=== PATIENT | male | born 1935 | race Caucasian/White ===

== ENCOUNTER 2017-11-26 11:16 | Emergency (ER) | payer MEDICARE, OTHER ==
[2017-11-26 12:21] LABS: ABS Basophils 0.1 10^3/ul (0-0.2); ABS Eosinophils 0.1 10^3/ul (0-0.6); ABS Lymphocytes 1.3 10^3/ul (1.0-4.8); ABS Monocytes 0.7 10^3/ul (0-0.8); ABS Neutrophils 5.8 10^3/ul (1.5-7.7); ABS Nucleated RBC 0 10^3/ul; Eosinophil % 1.1 % (0-6); Hematocrit 41 % (42-52); Hemoglobin 13.7 g/dl (14.0-18.0); Lymphocyte % 16.5 % (25-47); Mean Corpuscular HGB Conc 34 g/dl (31-36); Mean Corpuscular Hemoglobin 30 pg (27-31); Mean Corpuscular Volume 88 fL (80-94); Mean Platelet Volume 8 um3 (7.4-10.4); Nucleated Red Blood Cells % 0; Platelet Count 155 10^3/ul (150-450); Red Blood Count 4.64 10^6/ul (4.0-5.4); Red Cell Distribution Width 16 % (10.5-15); White Blood Count 7.9 10^3/ul (3.5-10.8)
[2017-11-26 12:31] LABS: INR 3.12 (0.77-1.02)
[2017-11-26 12:35] LABS: EGFR Non-African American 70.7 (>60)
--- NOTE | 2017-11-26 12:46 | RAD ---
Indication: Left leg edema. Duplex Doppler sonography of the deep venous system of the left lower extremity deep venous system was performed. Bilaterally the common femoral veins appear patent and compressible. Left proximal greater saphenous vein, proximal deep femoral vein, femoral vein, popliteal vein, posterior tibial veins and peroneal veins appear patent and compressible. IMPRESSION: NO EVIDENCE OF DEEP VENOUS THROMBOSIS IS IDENTIFIED.
[2017-11-26] MEDS ORDERED: cefTRIAXone(*) 1 GM in NS 0.9% 50 ML* 50 ML IVPB ONE (13:20)
[2017-11-26 14:19] VITALS: BP 165/68
--- NOTE | 2017-11-26 23:38 | ED ---
Wilberto Richardson Abhishek, scribed for Liz Jha MD on 11/26/17 at 1154 . Lower Extremity - HPI Summary HPI Summary: This patient is a 82 year old M presenting to [facility] accompanied by daughter and son-in-law with a chief complaint of tightness and swelling in the left foot since 11/25/16 at night time. Pt states the tightness radiates to below the knee. Pt believes he has cellulitis in the left leg. The patient rates the pain 3/10 in severity. Symptoms aggravated by nothing. Symptoms alleviated by nothing. Patient reports pedal edema bilaterally and SOB (chronic). Patient denies foot pain, fever, and right leg pain. His symptoms are in the same side of the leg that the cellulitis was previously present before. Pt has hx paroxysmal afib and is on warfarin, which he states has been therapeutic on recent measurements. He has no prior hx of DVT. He denies CP.. - History of Current Complaint Chief Complaint: EDExtremityLower Stated Complaint: POSSIBLE CELLULITIS IN LT FOOT Time Seen by Provider: 11/26/17 11:36 Hx Obtained From: Patient Mechanism Of Injury: Other - no known injury Onset of Pain: Days - 2 Onset/Duration: Days - since 11/25/17 at night time Severity Initially: Mild Severity Currently: Mild Pain Intensity: 3 Pain Scale Used: 0-10 Numeric Timing: Constant Location: Is Discrete @ - left foot and radiates up to just below the knee Character Of Pain: Stiffness - tightness Associated Signs And Symptoms: Positive: Swelling - bilateral pedal, Other - Tightness in the left foot radiating to below the knee Aggravating Factor(s): Nothing Alleviating Factor(s): Nothing Able to Bear Weight: Yes - Allergies/Home Medications Allergies/Adverse Reactions: Allergies Allergy/AdvReac Type Severity Reaction Status Date / Time Penicillins Allergy Intermediate Swelling Verified 11/26/17 11:46 Home Medications: Home Medications Cholecalciferol [Vitamin D] 5,000 i.u. PO DAILY 11/26/17 [History Confirmed ] Fluticasone Furoate-Vilanterol [Breo Ellipta 200-25 Mcg/INH] 1 puff INH DAILY [History Confirmed 11/26/17] Ipratropium 0.5MG/2.5ML NEB* 1 unit INH BID 11/26/17 [History Confirmed 11/26/17 ] Warfarin TAB(*) [Coumadin TAB(*)] 1 - 4 mg PO DAILY 11/26/17 [History Confirmed 11/26/17] PMH/Surg Hx/FS Hx/Imm Hx Previously Healthy: No - hx cellulitis Endocrine/Hematology History: Denies: Hx Diabetes, Hx Thyroid Disease Cardiovascular History: Reports: Hx Hypertension Respiratory History: Reports: Hx Asthma Denies: Hx Chronic Obstructive Pulmonary Disease (COPD) GI History: Denies: Hx Ulcer - Cancer History Cancer Type, 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 - Surgical History Surgery Procedure, Year, and Place: Appendectomy, nose surgery, shoulder torn rotator cuff repair Infectious Disease History: No Infectious Disease History: Denies: Hx Hepatitis, Hx Human Immunodeficiency Virus (HIV), Traveled Outside the [place] in Last 30 Days - Family History Known Family History: Positive: Hypertension, Other - Cancer - Social History Lives: With Family Alcohol Use: Occasionally Substance Use Type: Reports: None Smoking Status (MU): Former Smoker Review of Systems Negative: Fever Eyes: Negative ENT: Negative Cardiovascular: Negative Positive: Shortness Of Breath - Chronic Gastrointestinal: Negative Genitourinary: Negative Musculoskeletal: Other - Negative foot pain and right leg pain Positive: Edema - pedal bilaterally, Other - tightness in the left foot that radiates below the knee. Positive: Other - usual brawny skin changes on bilat lower legs Neurological: Negative Psychological: Normal All Other Systems Reviewed And Are Negative: Yes Physical Exam - Summary Physical Exam Summary: Appearance: Ill-appearing, moderate pain distress, Well-nourished Skin: [place] at the 5th MTP joint on the plantar surface brawny changes bilaterally, no redness or warmth, no lymphangitic streak. No open area noted on left foot, except [place] at the 5th MTP Head: Normal Head/Face inspection Eyes: Conjunctiva clear ENT: Normal inspection Neck: Supple, no nodes, no JVD. Respiratory: Lungs clear, Normal breath sounds, no respiratory distress Cardio: RRR, No murmur, pulses normal, brisk capillary refill Abdomen: soft, nontender Bowel sounds: present Musculoskeletal: Strength Intact/ ROM intact. No calf tenderness. Bilat 1+ pedal edema. Neuro: Alert, muscle tone normal, facial symmetry, speech normal, sensory/motor intact Psychological: Normal Triage Information Reviewed: Yes Vital Signs On Initial Exam: Initial Vitals Temp Pulse Resp BP Pulse Ox 97.3 F 57 18 164/72 96 11/26/17 11:18 11/26/17 11:18 11/26/17 11:18 11/26/17 11:18 11/26/17 11:18 Vital Signs Reviewed: Yes Diagnostics - Vital Signs Vital Signs Temp Pulse Resp BP Pulse Ox 11/26/17 11:38 54 96 11/26/17 11:37 164/84 11/26/17 11:18 97.3 F 57 18 164/72 96 - Laboratory Lab Results: Lab Results 11/26/17 11/26/17 11/26/17 Range/Units 12:11 12:11 12:11 WBC 7.9 (3.5-10.8) 10^3/ul RBC 4.64 (4.0-5.4) 10^6/ul Hgb 13.7 L (14.0-18.0) g/dl Hct 41 L (42-52) % MCV 88 (80-94) fL MCH 30 (27-31) pg MCHC 34 (31-36) g/dl RDW 16 H (10.5-15) % Plt Count 155 (150-450) 10^3/ul MPV 8 (7.4-10.4) um3 Neut % (Auto) 73.0 (38-83) % Lymph % (Auto) 16.5 L (25-47) % Wood[place] % (Auto) 8.5 (1-9) % Eos % (Auto) 1.1 (0-6) % Baso % (Auto) 0.9 (0-2) % Absolute Neuts (auto) 5.8 (1.5-7.7) 10^3/ul Absolute Lymphs (auto) 1.3 (1.0-4.8) 10^3/ul Absolute Monos (auto) 0.7 (0-0.8) 10^3/ul Absolute Eos (auto) 0.1 (0-0.6) 10^3/ul Absolute Basos (auto) 0.1 (0-0.2) 10^3/ul Absolute Nucleated RBC 0 10^3/ul Nucleated RBC % 0 ESR 13 (0-40) mm/Hr INR (Anticoag Therapy) 3.12 H (0.77-1.02) APTT 45.9 H (26.0-36.3) seconds Sodium 132 L (133-145) mmol/L Potassium 4.4 (3.5-5.0) mmol/L Chloride 99 L (101-111) mmol/L Carbon Dioxide 26 (22-32) mmol/L Anion Gap 7 (2-11) mmol/L BUN 25 H (6-24) mg/dL Creatinine 1.01 (0.67-1.17) mg/dL Est GFR ( Amer) 91.0 (>60) Est GFR (Non-Af Amer) 70.7 (>60) BUN/Creatinine Ratio 24.8 H (8-20) Glucose 188 H (70-100) mg/dL Lactic Acid (0.5-2.0) mmol/L Calcium 9.3 (8.6-10.3) mg/dL Total Bilirubin 1.70 H (0.2-1.0) mg/dL AST 31 (13-39) U/L ALT 28 (7-52) U/L Alkaline Phosphatase 87 (34-104) U/L C-Reactive Protein 3.69 (< 5.00) mg/L Total Protein 6.7 (6.4-8.9) g/dL Albumin 4.0 (3.2-5.2) g/dL Globulin 2.7 (2-4) g/dL Albumin/Globulin Ratio 1.5 (1-3) 11/26/ Range/Units 12:11 WBC (3.5-10.8) 10^3/ul RBC (4.0-5.4) 10^6/ul Hgb (14.0-18.0) g/dl Hct (42-52) % MCV (80-94) fL MCH (27-31) pg MCHC (31-36) g/dl RDW (10.5-15) % Plt Count (150-450) 10^3/ul MPV (7.4-10.4) um3 Neut % (Auto) (38-83) % Lymph % (Auto) (25-47) % [place]son % (Auto) (1-9) % Eos % (Auto) (0-6) % Baso % (Auto) (0-2) % Absolute Neuts (auto) (1.5-7.7) 10^3/ul Absolute Lymphs (auto) (1.0-4.8) 10^3/ul Absolute Monos (auto) (0-0.8) 10^3/ul Absolute Eos (auto) (0-0.6) 10^3/ul Absolute Basos (auto) (0-0.2) 10^3/ul Absolute Nucleated RBC 10^3/ul Nucleated RBC % ESR (0-40) mm/Hr INR (Anticoag Therapy) (0.77-1.02) APTT (26.0-36.3) seconds Sodium (133-145) mmol/L Potassium (3.5-5.0) mmol/L Chloride (101-111) mmol/L Carbon Dioxide (22-32) mmol/L Anion Gap (2-11) mmol/L BUN (6-24) mg/dL Creatinine (0.67-1.17) mg/dL Est GFR ( Amer) (>60) Est GFR (Non-Af Amer) (>60) BUN/Creatinine Ratio (8-20) Glucose (70-100) mg/dL Lactic Acid 1.5 (0.5-2.0) mmol/L Calcium (8.6-10.3) mg/dL Total Bilirubin (0.2-1.0) mg/dL AST (13-39) U/L ALT (7-52) U/L Alkaline Phosphatase (34-104) U/L C-Reactive Protein (< 5.00) mg/L Total Protein (6.4-8.9) g/dL Albumin (3.2-5.2) g/dL Globulin (2-4) g/dL Albumin/Globulin Ratio (1-3) Result Diagrams: 11/26/17 12:11 11/26/17 12:11 Lab Statement: Any lab studies that have been ordered have been reviewed, and results considered in the medical decision making process. - Ultrasound No standard instances Ultrasound Interpretation Completed By: Radiologist - US venous doppler study reveals NO EVIDENCE OF DEEP VENOUS THROMBOSIS IS IDENTIFIED. ED physician has reviewed this radiology report and agrees Re-Evaluation - Re-Evaluation First Eval Re-Evaluation Time: 13:10 Change: Unchanged - discussed lab and US results. Pt understands and agrees to treat as cellulitis. Will give first dose IV, then Rx with oral antibiotics. Lower Extremity Course/Dx - Course Course Of Treatment: The pt presented to the [facility] with a chief complaint of left sided leg tightness ranging from below the knees down to the left foot. Pt described prior PMHx of cellulitis on the left leg in fall of 2015. The pt had a venous doppler study taken and radiology report states NO EVIDENCE OF DEEP VENOUS THROMBOSIS IS IDENTIFIED. The pt will be dx with cellulitis and will be discharged home. Pt was given first dose of antibiotics IV, ceftriaxone 1 gm IV , and then will take cephalexin 500mg po qid x 10 days. - Diagnoses Differential Diagnosis/HQI/PQRI: Positive: Cellulitis, DVT, Gout, Infection Provider Diagnoses: Cellulitis Discharge - Discharge Plan Condition: Stable Disposition: HOME Prescriptions: Cephalexin CAP* [Keflex 500 CAP*] 500 mg PO QID #40 cap Patient Education Materials: Cellulitis (ED) Referrals: Abel Galicia DO [Primary Care Provider] - 3 Days Additional Instructions: Return to the ER if you have any new or worsening symptoms. The documentation as recorded by the Wilberto dobbins Abhishek accurately reflects the service I personally performed and the decisions made by , Liz Jha MD.
== END 2017-11-26 14:19 | disposition home or self-care (01) ==
LOC: ED 11:16
DX: L03.116 Cellulitis of left lower limb (principal); R60.9 Edema, unspecified; Z87.891 Personal history of nicotine dependence; Z86.79 Personal history of other diseases of the circulatory system; Z87.09 Personal history of other diseases of the respiratory system; Z85.6 Personal history of leukemia
CPT/HCPCS: 36415; 80053; 83605; 85025; 85610; 85652; 85730; 86140; 99284; J0696

== ENCOUNTER 2018-01-06 10:13 | Inpatient (IN) | payer MEDICARE, OTHER ==
[2018-01-06 11:00] LABS: ABS Basophils 0 10^3/ul (0-0.2); ABS Eosinophils 0 10^3/ul (0-0.6); ABS Lymphocytes 0.6 10^3/ul (1.0-4.8); ABS Monocytes 0.9 10^3/ul (0-0.8); ABS Neutrophils 4.2 10^3/ul (1.5-7.7); ABS Nucleated RBC 0 10^3/ul; Eosinophil % 0.7 % (0-6); Hematocrit 38 % (42-52); Lymphocyte % 10.6 % (25-47); Mean Corpuscular HGB Conc 34 g/dl (31-36); Mean Corpuscular Hemoglobin 30 pg (27-31); Mean Corpuscular Volume 87 fL (80-94); Mean Platelet Volume 8 um3 (7.4-10.4); Nucleated Red Blood Cells % 0; Platelet Count 130 10^3/ul (150-450); Red Blood Count 4.37 10^6/ul (4.0-5.4); Red Cell Distribution Width 16 % (10.5-15); White Blood Count 5.9 10^3/ul (3.5-10.8)
[2018-01-06 11:09] LABS: INR 2.54 (0.77-1.02)
[2018-01-06] MEDS ORDERED: Oseltamivir CAP* 75 MG CAP PO ONE (11:26)
[2018-01-06] MEDS ORDERED: NS 0.9% 1000 ML* 1,000 ML IV ONE (11:26)
[2018-01-06] MEDS ORDERED: Acetaminophen TAB* 325 MG PO ONE (11:26)
[2018-01-06] MEDS ORDERED: Levofloxacin 750 MG IVPREMIX(* 750 MG/150 ML BAG IVPB ONE (11:27)
[2018-01-06 11:28] LABS: EGFR Non-African American 74.1 (>60)
--- NOTE | 2018-01-06 11:29 | RAD ---
INDICATION: Shortness of breath. COMPARISON: Comparison is made with a prior study from October 17, 2016. TECHNIQUE: AP and lateral views of the chest were obtained. FINDINGS: The heart is mildly enlarged and unchanged from the prior study. The lungs are hyperinflated and clear. IMPRESSION: FINDINGS SUGGESTIVE OF COPD, NO EVIDENCE FOR ACUTE FINDING.
[2018-01-06] MEDS ORDERED: Albuterol/Ipratropium NEB.SOL* Albuterol 2.5 MG/Ipratropium 0.5 MG 3 ML INH ONE (11:47)
[2018-01-06] MEDS ORDERED: Albuterol 2.5 MG/3 ML NEB.SOL* (0.083%) INH ONE (11:48)
[2018-01-06] MEDS ORDERED: methylPREDNISolone 125 MG* 2 ML VIAL IV ONE (12:46)
--- NOTE | 2018-01-06 13:30 | ED ---
Tony Richardson Gabriel, scribed for Claude Gutierrez MD on 01/06/18 at 1114 . Shortness of Breath - HPI Summary HPI Summary: This patient is a 82 year old M BIBA to [facility] accompanied by his family with a chief complaint of SOB since 01-03-18. The patient rates the pain 0/10 in severity. Symptoms aggravated by exertion. Patient reports productive cough. Patient denies fever and n/v/d. Pt is not on O2 at home but is on warfarin. - History of Current Complaint Chief Complaint: EDShortnessOfBreath Time Seen by Provider: 01/06/18 11:10 Hx Obtained From: Patient Onset/Duration: Lasting Days Timing: Constant Current Severity: Moderate Aggrevating Factors: Movement Associated Signs & Symptoms: Negative - fever NVD, Cough (Productive) - Allergy/Home Medications Allergies/Adverse Reactions: Allergies Allergy/AdvReac Type Severity Reaction Status Date / Time Penicillins Allergy Swelling Verified 01/06/18 10:25 Home Medications: Home Medications Albuterol 2.5MG/3ML (0.083%)* [Ventolin 2.5 MG/3 ML NEB.TIM*] 2.5 mg INH BID [History Confirmed 01/06/18] Albuterol HFA INHALER* [Ventolin HFA Inhaler*] 2 puff INH Q4H PRN 01/06/18 [ History Confirmed 01/06/18] Ascorbic Acid TAB* [Vitamin C TAB*] 500 mg PO DAILY 01/06/18 [History Confirmed 01/06/18] Cholecalciferol TAB* [Vitamin D TAB*] 5,000 units PO DAILY 01/06/18 [History Confirmed 01/06/18] Fluticasone/Vilanterol MDI(NF) [Breo Ellipta MDI 200/25(NF)] 1 puff INH DAILY [History Confirmed 01/06/18] Furosemide TAB* [Lasix TAB*] 20 mg PO DAILY 01/06/18 [History Confirmed 01/06/18 ] Glucosamine CAP (NF) 1,500 mg PO DAILY 01/06/18 [History Confirmed 01/06/18] Losartan TAB* [Cozaar TAB*] 50 mg PO DAILY 01/06/18 [History Confirmed 01/06/18] Metoprolol Succinate XL TAB* [Toprol XL TAB*] 100 mg PO DAILY 01/06/18 [History Confirmed 01/06/18] Montelukast Sodium TAB* [Singulair TAB*] 10 mg PO DAILY 01/06/18 [History Confirmed 01/06/18] Multivitamins/Minerals TAB* [Theragran/minerals TAB*] 1 tab PO DAILY 01/06/18 [ History Confirmed 01/06/18] Tamsulosin CAP* [Flomax CAP*] 0.4 mg PO DAILY 01/06/18 [History Confirmed ] Warfarin TAB(*) [Coumadin TAB(*)] 3 mg PO DAILY 01/06/18 [History Confirmed ] metFORMIN* [Glucophage 1000 MG TAB *] 1,000 mg PO BID 01/06/18 [History Confirmed 01/06/18] PMH/Surg Hx/FS Hx/Imm Hx Endocrine/Hematology History: Denies: Hx Diabetes, Hx Thyroid Disease Cardiovascular History: Reports: Hx Hypertension Respiratory History: Reports: Hx Asthma Denies: Hx Chronic Obstructive Pulmonary Disease (COPD) GI History: Denies: Hx Ulcer - Cancer History Cancer Type, 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 - Surgical History Surgery Procedure, Year, and Place: Appendectomy, nose surgery, shoulder torn rotator cuff repair Infectious Disease History: No Infectious Disease History: Denies: Hx Hepatitis, Hx Human Immunodeficiency Virus (HIV), Traveled Outside the in Last 30 Days - Family History Known Family History: Positive: Hypertension, Other - Cancer - Social History Lives: With Family Alcohol Use: Occasionally Alcohol Amount: LAST DRINK TUESDAY NIGHT Substance Use Type: Reports: None Smoking Status (MU): Former Smoker Review of Systems Negative: Fever Positive: Shortness Of Breath, Cough Negative: Vomiting, Diarrhea, Nausea All Other Systems Reviewed And Are Negative: Yes Physical Exam - Summary Physical Exam Summary: VITAL SIGNS: Reviewed. GENERAL: Patient is a well-developed and nourished male who is lying comfortable in the stretcher. Patient is not in any acute respiratory distress. HEAD AND FACE: No signs of trauma. No ecchymosis, hematomas or skull depressions. No sinus tenderness. EYES: PERRLA, EOMI x 2, No injected conjunctiva, no nystagmus. EARS: Hearing grossly intact. Ear canals and tympanic membranes are within normal limits. MOUTH: Oropharynx within normal limits. NECK: Supple, trachea is midline, no adenopathy, no JVD, no carotid bruit, no c- spine tenderness, neck with full ROM. CHEST: Symmetric, no tenderness at palpation LUNGS: Clear to auscultation bilaterally. No wheezing or crackles. CVS: irregular rhythm but regular rate, S1 and S2 present, no murmurs or gallops appreciated. ABDOMEN: Soft, distended with hypoactive bowel sounds EXTREMITIES: FROM in all major joints. Bilateral LE edema NEURO: Alert and oriented x 3. No acute neurological deficits. Speech is normal and follows commands. SKIN: Dry and warm Triage Information Reviewed: Yes Vital Signs On Initial Exam: Initial Vitals Temp Pulse Resp BP Pulse Ox 98.5 F 85 28 151/65 95 01/06/18 10:20 01/06/18 10:20 01/06/18 10:20 01/06/18 10:20 01/06/18 10:20 Vital Signs Reviewed: Yes Diagnostics - Vital Signs Vital Signs Temp Pulse Resp BP Pulse Ox 01/06/18 10:43 92 01/06/18 10:30 44 20 126/74 93 01/06/18 10:23 52 18 97 01/06/18 10:22 28 01/06/18 10:21 147/73 01/06/18 10:20 98.5 F 85 28 151/65 95 - Laboratory Lab Results: Lab Results 01/06/18 01/06/18 01/06/18 Range/Units 10:48 10:48 10:55 WBC 5.9 (3.5-10.8) 10^3/ul RBC 4.37 (4.0-5.4) 10^6/ul Hgb 13.0 L (14.0-18.0) g/dl Hct 38 L (42-52) % MCV 87 (80-94) fL MCH 30 (27-31) pg MCHC 34 (31-36) g/dl RDW 16 H (10.5-15) % Plt Count 130 L (150-450) 10^3/ul MPV 8 (7.4-10.4) um3 Neut % (Auto) 72.3 (38-83) % Lymph % (Auto) 10.6 L (25-47) % [place] % (Auto) 15.8 H (0-7) % Eos % (Auto) 0.7 (0-6) % Baso % (Auto) 0.6 (0-2) % Absolute Neuts (auto) 4.2 (1.5-7.7) 10^3/ul Absolute Lymphs (auto) 0.6 L (1.0-4.8) 10^3/ul Absolute Monos (auto) 0.9 H (0-0.8) 10^3/ul Absolute Eos (auto) 0 (0-0.6) 10^3/ul Absolute Basos (auto) 0 (0-0.2) 10^3/ul Absolute Nucleated RBC 0 10^3/ul Nucleated RBC % 0 INR (Anticoag Therapy) 2.54 H (0.77-1.02) APTT 43.5 H (26.0-36.3) seconds D-Dimer, Quantitative < 200 (Less Than 230) ng/mL Influenza A (Rapid) Negative (Negative) Influenza B (Rapid) Positive H (Negative) Result Diagrams: 01/06/18 10:48 01/06/18 10:48 Lab Statement: Any lab studies that have been ordered have been reviewed, and results considered in the medical decision making process. - Radiology CXR Radiology Interpretation Completed By: Radiologist - FINDINGS SUGGESTIVE OF COPD , NO EVIDENCE FOR ACUTE FINDING. ED physician has reviewed this radiology report. - EKG 1045 Cardiac Rate: Other Rate EKG Rhythm: Atrial Fibrillation - at 100 BPM EKG Interpretation: frequent PVCs, RBBB Course/Dx - Course Assessment/Plan: This patient is a 82 year old M BIBA to [facility] accompanied by his family with a chief complaint of SOB since 01-03-18. The patient rates the pain 0/10 in severity. Symptoms aggravated by exertion. Patient reports productive cough. Patient denies fever and n/v/d. Pt is not on O2 at home but is on warfarin. Pt was positive for influenza B. An EKG reveals afib at 100 bpm w/ frequent PVCs RBBB. CXR reveals, per radiologist, FINDINGS SUGGESTIVE OF COPD, NO EVIDENCE FOR ACUTE FINDING. Test results with no significant abnormalities except for a troponin of 0.04. In the ED course the patient was given IV fluids, tamiflu, levaquin, and albuterol. Dx COPD and influenza B. 1259 We discussed patient care with Dr. Fowler and he has accepted the patient for admittance. Patient will be admitted to Dr. Fowler. The patient is agreeable with this plan. - Diagnoses Provider Diagnoses: COPD (chronic obstructive pulmonary disease), Influenza B - Physician Notifications Discussed Care of Patient With: Buzz Fowler Time Discussed With Above Provider: 12:59 Instructed by Provider To: Admit As Inpatient Discharge - Discharge Plan Condition: Fair Disposition: ADMITTED TO [facility] Referrals: Abel Galicia DO [Primary Care Provider] - The documentation as recorded by the Tony dobbins Gabriel accurately reflects the service I personally performed and the decisions made by , Claude Gutierrez MD.
[2018-01-06] MEDS ORDERED: Albuterol 2.5 MG/3 ML NEB.SOL* (0.083%) INH PRN (13:49)
[2018-01-06] MEDS ORDERED: Ondansetron INJ* 2 MG/ML VIAL IV PRN (13:49)
[2018-01-06] MEDS ORDERED: Dextrose 50% Syringe 50 ML* 25 GM/50 ML SYRINGE IV PUSH PRN (13:59)
[2018-01-06] MEDS ORDERED: Albuterol/Ipratropium NEB.SOL* Albuterol 2.5 MG/Ipratropium 0.5 MG 3 ML INH SCH ×4 (14:00→19:00)
[2018-01-06] MEDS ORDERED: NS 0.9% 1000 ML* 1,000 ML IV SCH (14:00)
[2018-01-06] MEDS ORDERED: methylPREDNISolone 125 MG* 2 ML VIAL IV SCH (14:00)
[2018-01-06] MEDS: Insulin LISPRO* 1 UNITS UNIT SUBCUT SCH (17:29)
[2018-01-06] MEDS: Warfarin TAB(*) 3 MG PO SCH (17:29)
--- NOTE | 2018-01-06 19:19 | HP ---
CC: Dr. Galicia * HISTORY AND PHYSICAL: DATE OF ADMISSION: 01/06/18 PRIMARY CARE PROVIDER: Dr. Galicia. ATTENDING PHYSICIAN WHILE IN THE HOSPITAL: Dr. Bob Fowler * (report dictated by Flakito Whitney NP). CHIEF COMPLAINT: Cough and shortness of breath. HISTORY OF PRESENT ILLNESS: Mr. Redmond is an 82-year-old male patient who carries a history of AFib, GELACIO. He does have a history of diabetes. He has a history of asthma, hypertension, GELACIO, he wears a mask sporadically, hyperlipidemia, hypertension. He comes into the our ER today with complaints of cough and shortness of breath progressively getting worse over the last week with the exception that yesterday in the last 24 hours it was much worse. He admits to having chest discomfort when he coughs and when he takes a deep breath that hurts. He denies having any chest pressure with exertion or at rest. He states that shortness of breath has been getting much worse with exertion and he was concerned today. He was supposed to see his primary, but he felt that he just he could not make it there today as he was much more short of breath. He states that to his knowledge he has not been around anybody sick. He denies having any abdominal pain. He denied having any nausea or vomiting or diarrhea, but he was concerned again because of the breathing came into the ED today, was ultimately found to have flu, so we were asked to evaluate for admission. PAST MEDICAL HISTORY: Significant for: 1. AFib, on chronic anticoagulation. 2. GELACIO. He is intermittently compliant with his mask. 3. GERD. 4. BPH. 5. CLL. 6. Hypertension. 7. Hyperlipidemia. 8. Arthritis. 9. Asthma. 10. Diabetes. PAST SURGICAL HISTORY: Patient has had rotator cuff repair and appendectomy. MEDICATIONS: His home meds include: 1. Glucosamine 1500 mg p.o. daily. 2. Vitamin D 5000 units daily. 3. Multivitamin 1 tablet daily. 4. Vitamin C 500 mg daily. 5. Ventolin 2 puffs inhaled every 4 hours as needed. 6. Breo 1 puff inhaled daily. 7. Albuterol 2.5 mg inhaled b.i.d. 8. Flomax 0.4 mg daily. 9. Singulair 10 mg daily. 10. Metoprolol XL 100 mg daily. 11. Lasix 20 mg daily. 12. Metformin 1000 mg p.o. b.i.d. 13. Warfarin 3 mg daily. 14. Cozaar 50 mg daily. ALLERGIES TO MEDICATIONS: Include PENICILLIN. FAMILY HISTORY: Mother had heart disease. Father had pancreatic cancer. SOCIAL HISTORY: He is a former smoker, he quit many years ago and he states he had not smoked very long. He does drink may be twice a week occasionally. Surrogate decision maker is his . REVIEW OF SYSTEMS: There is no documented fever. He denies having any significant weight change. There was no double vision. He denies having any ear discharge. There is no rhinorrhea. Denied any sore throat. He does admit to having a cough. He does admit to having shortness of breath particularly with exertion. He denied having any fevers. He did state that the breathing got much worse in the last 24 hours. Denies having any abdominal pain, nausea, vomiting, or diarrhea. Denies any dysuria, frequency, or seizure. No loss of consciousness. No pruritus. Review of 14 systems completed, all others negative. PHYSICAL EXAMINATION GENERAL: At this time, Mr. Redmond is an 82-year-old male patient. He is sitting in the ED stretcher. He does not appear to be in any acute distress. VITAL SIGNS: Blood pressure 124/88, pulse 76, respirations 20, O2 sat 94%, temperature 98.5. HEENT: Head: Atraumatic. Eyes: EOMs intact. Sclerae anicteric and not pale. Throat: Oral mucosa appears to be dry. No oropharyngeal erythema. NECK: Supple. LUNGS: He was wheezing bilaterally, expiratory throughout. Equal diaphragmatic expansion. HEART: Sounds S1, S2. Irregularly irregular rate. No murmurs, rubs, or gallops. ABDOMEN: Soft, flat, nontender. Bowel sounds were present. EXTREMITIES: Pulses were 2+ throughout. He did have some peripheral edema that was 2+ bilaterally. He had 5/5 strength. NEUROLOGIC: He is awake, alert, and oriented x3. Tongue midline. Conference Planner are equal. No gross focal deficits. SKIN: Intact. DIAGNOSTIC STUDIES/LAB DATA: WBC 5.9, RBC 4.37, hemoglobin of 13, hematocrit 38, platelet count of 130. The INR was 2.54, PTT of 43.5, D-dimer less than 200. PH was 7.46, pCO2 was 33, pO2 104. Sodium 129, potassium 4.4, chloride of 95, bicarb 26, BUN 22, creatinine 0.97, glucose 111, lactic 1.6, calcium 11.4. Total bili 1.8, AST 36, ALT 39, alk phos 99, CK was 320, CK-MB 17, troponin 0.04, albumin of 4.1. Serology was positive for flu B. He had a chest x-ray obtained today, impression: COPD. No evidence for acute finding. He had an EKG obtained today, the last one was from 10 years ago. The previous EKG showed a sinus rhythm with a first degree AV block. Today's EKG shows what appears to be AFib with PVCs in couplets, but no ST elevations were noted or T- wave inversions. No previous EKG, but will be performed in 10 years ago to review. Old medical records were reviewed. ASSESSMENT AND PLAN: Mr. Redmond is an 82-year-old male patient coming into the ED today, again complaining initially of shortness of breath, dyspnea on exertion getting worse over the last 24 hours. An evaluation found to be flu B positive and wheezing on exam. We were asked to evaluate. He will be admitted under observation status for: 1. Asthma exacerbation secondary to influenza B. At this point, I did order Tamiflu. He got one dose of antibiotics, but this is probably viral, so I do not think we need to continue these. We will get blood cultures. I will get the Legionella antigen and Strep pneumo antigen on the patient. If either one of these are positive, we can reinstate the antibiotics. I will try to get a sputum culture if the patient is able to cough. I will order nebs around-the- clock Dulera and steroids and we will continue to treat him aggressively and continue to follow. I did again order Tamiflu. 2. Atrial fibrillation, it is rate controlled. I am going to go ahead and continue his Lopressor and the Coumadin. 3. Obstructive sleep apnea. I have ordered CPAP for him. 4. Gastroesophageal reflux disease. Continue meds as prescribed. 5. Benign prostatic hyperplasia. Continue Flomax. 6. Chronic lymphocytic leukemia. Follow with primary. 7. Hypertension. In the sitting of acute illness, I am going to hold the Lasix and also hold the Cozaar. We will continue the beta juana for the atrial fibrillation. 8. Hyperlipidemia. Continue statin therapy. 9. Arthritis. Continue p.r.n. Tylenol and we will continue monitor. 10. Diabetes. Lispro sliding scale has been ordered. 11. DVT prophylaxis. Again he is on warfarin, INR is 2.5. We will continue this for the time being. 11. Code status. Full code. 12. Fluids, electrolytes, and nutrition. He can have a heart healthy diet. TIME SPENT: On admission was approximately 50 minutes, greater than half the time was spent [id number] with the patient obtaining my history and physical, other half time was spent going over the plan of care with the patient and implementing plan of care. I did discuss the plan of care with my attending, Dr. Fowler, he is in agreement. FLAKITO WHITNEY, MARCI [id number]/CPS #: [id number] NIXON
[2018-01-06] MEDS: Mometasone/Formoter 200/5 MDI INH SCH (19:21)
[2018-01-06] MEDS: methylPREDNISolone 125 MG* 2 ML VIAL IV SCH (22:10)
[2018-01-06] MEDS: Oseltamivir CAP* 75 MG CAP PO SCH (22:10)
[2018-01-06] MEDS: Albuterol/Ipratropium NEB.SOL* Albuterol 2.5 MG/Ipratropium 0.5 MG 3 ML INH SCH (23:14)
[2018-01-07] MEDS: Albuterol/Ipratropium NEB.SOL* Albuterol 2.5 MG/Ipratropium 0.5 MG 3 ML INH SCH ×4 (03:26→19:12)
[2018-01-07] MEDS: Acetaminophen TAB* 325 MG PO PRN ×2 (03:31→20:35)
[2018-01-07] MEDS: methylPREDNISolone 125 MG* 2 ML VIAL IV SCH ×3 (05:42→20:53)
[2018-01-07 05:54] LABS: ABS Basophils 0 10^3/ul (0-0.2); ABS Eosinophils 0 10^3/ul (0-0.6); ABS Lymphocytes 0.3 10^3/ul (1.0-4.8); ABS Monocytes 0.1 10^3/ul (0-0.8); ABS Neutrophils 3.9 10^3/ul (1.5-7.7); ABS Nucleated RBC 0 10^3/ul; Eosinophil % 0.1 % (0-6); Hematocrit 37 % (42-52); Hemoglobin 12.5 g/dl (14.0-18.0); Lymphocyte % 7.5 % (25-47); Mean Corpuscular HGB Conc 34 g/dl (31-36); Mean Corpuscular Hemoglobin 29 pg (27-31); Mean Corpuscular Volume 88 fL (80-94); Mean Platelet Volume 8 um3 (7.4-10.4); Nucleated Red Blood Cells % 0; Platelet Count 114 10^3/ul (150-450); Red Blood Count 4.26 10^6/ul (4.0-5.4); Red Cell Distribution Width 16 % (10.5-15); White Blood Count 4.4 10^3/ul (3.5-10.8)
[2018-01-07 06:06] LABS: EGFR Non-African American 87.5 (>60)
[2018-01-07 06:16] LABS: INR 2.47 (0.77-1.02)
[2018-01-07] MEDS ORDERED: Magnesium Sulfate IV* 3 GM in NS 0.9% 100 ML* 100 ML IVPB ONE (07:06)
[2018-01-07] MEDS: Mometasone/Formoter 200/5 MDI INH SCH ×2 (07:09→19:12)
[2018-01-07] MEDS ORDERED: Magnesium Sulfate 2 GM IV IVPB ONE (07:30)
[2018-01-07] MEDS ORDERED: Magnesium Sulfate 1 GM IV* 1 GM/100 ML BAG IV ONE (08:00)
[2018-01-07] MEDS: Insulin LISPRO* 1 UNITS UNIT SUBCUT SCH ×3 (08:41→17:06)
[2018-01-07] MEDS: Oseltamivir CAP* 75 MG CAP PO SCH ×2 (08:41→20:09)
[2018-01-07] MEDS: Tamsulosin CAP* 0.4 MG PO SCH (08:41)
[2018-01-07] MEDS: Montelukast Sodium TAB* 10 MG PO SCH (08:41)
[2018-01-07] MEDS: Ascorbic Acid TAB* 500 MG PO SCH (08:42)
[2018-01-07] MEDS: Metoprolol Succinate XL TAB* 100 MG PO SCH (08:42)
[2018-01-07] MEDS ORDERED: Furosemide IV* 10 MG/ML 2 ML VIAL (20 MG) IV SLOW PU ONE (12:42)
--- NOTE | 2018-01-07 12:51 | PN ---
Subjective Date of Service: 01/07/18 Interval History: Patient complains of continued shortness of breath, significantly compromising ability to engage in activity. Patient states that he has intermittent swelling in his legs and that his current swelling is not unusual for him. Patient states he takes lasix daily at home for this. Patient had a recent echo which was normal. Patient denies chest pain except with prolonged coughing spells. Patient denies F/C, N/V, abdominal pain, diarrhea, constipation, palpitations, lightheadedness, or other pain. Family History: Unchanged from Admission Social History: Unchanged from Admission Past Medical History: Unchanged from Admission Objective Active Medications: Acetaminophen (Tylenol Tab*) 650 mg PO Q4H PRN PRN Reason: FEVER/PAIN Last Admin: 01/07/18 03:31 Dose: 650 mg Albuterol (Ventolin 2.5 Mg/3 Ml Neb.Stefani*) 2.5 mg INH Q2H PRN PRN Reason: SOB/WHEEZING Albuterol/Ipratropium (Duoneb (Albuterol 2.5 Mg/Ipratropium 0.5 Mg)) 1 neb INH Q6H [facility] Last Admin: 01/07/18 12:35 Dose: 1 neb Ascorbic Acid (Vitamin C Tab*) 500 mg PO DAILY [facility] Last Admin: 01/07/18 08:42 Dose: 500 mg Dextrose (D50w Syringe 50 Ml*) 12.5 gm IV PUSH .FOR FS < 60 - SS PRN PRN Reason: FS < 60 Insulin Human Lispro (Humalog*) 0 units SUBCUT AC [facility] PRN Reason: Protocol Last Admin: 01/07/18 11:30 Dose: Not Given Methylprednisolone Sodium Succinate (Solu-Medrol 125mg *) 60 mg IV Q8HR [facility] Last Admin: 01/07/18 05:42 Dose: 60 mg Metoprolol Succinate (Toprol Xl Tab*) 100 mg PO DAILY [facility] Last Admin: 01/07/18 08:42 Dose: 100 mg Mometasone Furoate/Formoterol Fumar (Dulera 200/5 Mdi*) 2 puff INH BID [facility] Last Admin: 01/07/18 07:09 Dose: 2 puff Montelukast Sodium (Singulair Tab*) 10 mg PO DAILY [facility] Last Admin: 01/07/18 08:41 Dose: 10 mg Ondansetron HCl (Zofran Inj*) 4 mg IV Q6H PRN PRN Reason: NAUSEA Oseltamivir Phosphate (Tamiflu Cap*) 75 mg PO BID [facility] Stop: 01/11/18 09:01 Last Admin: 01/07/18 08:41 Dose: 75 mg Tamsulosin HCl (Flomax Cap*) 0.4 mg PO DAILY [facility] Last Admin: 01/07/18 08:41 Dose: 0.4 mg Warfarin Sodium (Coumadin Tab(*)) 3 mg PO DAILY@1700 [facility] PRN Reason: Protocol Last Admin: 01/06/18 17:29 Dose: 3 mg Vital Signs - 8 hr 01/07/18 01/07/18 01/07/18 07:10 08:26 10:30 Temperature 97.8 F Pulse Rate 78 79 80 Respiratory 16 20 16 Rate Blood Pressure 133/61 (mmHg) O2 Sat by Pulse 95 96 95 Oximetry 01/07/18 12:35 Temperature Pulse Rate 58 Respiratory 16 Rate Blood Pressure (mmHg) O2 Sat by Pulse 98 Oximetry Oxygen Devices in Use Now: Nasal Cannula - 2L Appearance: Patient is an 82yo male who appears stated age and is sitting in the bed in [facility]. Eyes: No Scleral Icterus, PERRLA Ears/Nose/Mouth/Throat: NL Teeth, Lips, Gums, Clear Oropharnyx, Mucous Membranes Moist Neck: NL Appearance and Movements; NL JVP, Trachea Midline Respiratory: Symmetrical Chest Expansion and Respiratory Effort, - - Loud wheezes throughout all lung meredith. Cardiovascular: NL Sounds; No Murmurs; No JVD, - - Irregularly irregular rhythm. 2+ pitting edema in B/L LE. Pulses 2+. Abdominal: NL Sounds; No Tenderness; No Distention, No Hepatosplenomegaly Lymphatic: No Cervical Adenopathy Extremities: No Edema, No Clubbing, Cyanosis Skin: No Rash or Ulcers, No Nodules or Sclerosis Neurological: Alert and Oriented x 3, NL Sensation, NL Muscle Strength and Tone , - - CN II-XII intact. Result Diagrams: 01/07/18 05:36 01/07/18 05:36 Additional Lab and Data: Lab Results Microbiology and Other Data: Microbiology 01/07/18 07:50 Gram Stain - Final Sputum Assess/Plan/Problems-Billing Assessment: Patient is an 82yo male with a PMH significant for Asthma, GELACIO, Afib, DM II, HTN , CLL who presents positive for Flu B with an asthma exacerbation. Patient is still on 2L of O2 with significant dyspnea with hypoxia on exertion. - Patient Problems (1) Influenza B Current Visit: Yes Status: Acute Code(s): J10.1 - FLU DUE TO OTH IDENT INFLUENZA VIRUS W OTH RESP MANIFEST SNOMED Code(s): 51022284 Comment: Influenza B positive. Still severe SOB with exertion and on 2L O2. Continue Tamiflu and supportive care. (2) Atrial fibrillation Current Visit: Yes Status: Acute Code(s): I48.91 - UNSPECIFIED ATRIAL FIBRILLATION SNOMED Code(s): 36303739 Comment: Rate controlled, frequent ectopy. Patient states this is his baseline. Contineue metoprolol and warfarin. (3) Lower extremity edema Current Visit: Yes Status: Acute Code(s): R60.0 - LOCALIZED EDEMA SNOMED Code(s): 364129029 Comment: Patient has lower extremity edema intermittently. IV lasix now to help breathing. Resume home lasix. (4) Asthma Current Visit: Yes Status: Acute Code(s): J45.909 - UNSPECIFIED ASTHMA, UNCOMPLICATED SNOMED Code(s): 098567038 Comment: Currently in exacerbation likely due to influenza. Continue inhalers and Steroids. (5) CLL (chronic lymphocytic leukemia) Current Visit: Yes Status: Acute Code(s): C91.90 - LYMPHOID LEUKEMIA, UNSPECIFIED NOT HAVING ACHIEVED REMISSION SNOMED Code(s): 02564802 Comment: WBC count normal, follow up outpatient. (6) HTN (hypertension) Current Visit: Yes Status: Acute Code(s): I10 - ESSENTIAL (PRIMARY) HYPERTENSION SNOMED Code(s): 17659652 Comment: Normotensive. Continue metoprolol and lasix. (7) HLD (hyperlipidemia) Current Visit: Yes Status: Acute Code(s): E78.5 - HYPERLIPIDEMIA, UNSPECIFIED SNOMED Code(s): 69899232 Comment: Unknown level. On no medications. Follow up outpatient. (8) BPH (benign prostatic hyperplasia) Current Visit: Yes Status: Acute Code(s): N40.0 - BENIGN PROSTATIC HYPERPLASIA WITHOUT LOWER URINRY TRACT SYMP SNOMED Code(s): 477342805 Comment: Continue Flomax. (9) GELACIO (obstructive sleep apnea) Current Visit: Yes Status: Acute Code(s): G47.33 - OBSTRUCTIVE SLEEP APNEA ( ADULT) (PEDIATRIC) SNOMED Code(s): 35368812 Comment: Home CPAP in hospital. (10) Diabetes Current Visit: Yes Status: Acute Code(s): E11.9 - TYPE 2 DIABETES MELLITUS WITHOUT COMPLICATIONS SNOMED Code(s): 38349664 Comment: SSI, continue metformin at discharge. Good control at this time. Will update hemoblogin A1c. (11) Elevated troponin Current Visit: Yes Status: Acute Code(s): R74.8 - ABNORMAL LEVELS OF OTHER SERUM ENZYMES SNOMED Code(s): 201352175 Comment: Up to .04 and stable x3. No chest pain. Likely demand ischemia. Possible outpatient stress test recommended. (12) Full code status Current Visit: Yes Status: Acute Code(s): Z78.9 - OTHER SPECIFIED HEALTH STATUS SNOMED Code(s): 670714897 (13) DVT prophylaxis Current Visit: Yes Status: Acute Code(s): NVK2116 - SNOMED Code(s): 549395632 Comment: Warfarin, Therapeutic. Status and Disposition: Patient is admitted inpatient.
[2018-01-07] MEDS ORDERED: Albuterol/Ipratropium NEB.SOL* Albuterol 2.5 MG/Ipratropium 0.5 MG 3 ML INH SCH (13:00)
[2018-01-07] MEDS: Warfarin TAB(*) 3 MG PO SCH (17:06)
[2018-01-08] MEDS: Albuterol/Ipratropium NEB.SOL* Albuterol 2.5 MG/Ipratropium 0.5 MG 3 ML INH SCH ×4 (01:06→19:47)
[2018-01-08 05:44] LABS: ABS Basophils 0 10^3/ul (0-0.2); ABS Eosinophils 0 10^3/ul (0-0.6); ABS Lymphocytes 0.6 10^3/ul (1.0-4.8); ABS Monocytes 0.5 10^3/ul (0-0.8); ABS Neutrophils 10.2 10^3/ul (1.5-7.7); ABS Nucleated RBC 0 10^3/ul; Eosinophil % 0 % (0-6); Hematocrit 39 % (42-52); Hemoglobin 12.9 g/dl (14.0-18.0); Lymphocyte % 5.4 % (25-47); Mean Corpuscular HGB Conc 33 g/dl (31-36); Mean Corpuscular Hemoglobin 29 pg (27-31); Mean Corpuscular Volume 88 fL (80-94); Mean Platelet Volume 9 um3 (7.4-10.4); Nucleated Red Blood Cells % 0; Platelet Count 137 10^3/ul (150-450); Red Blood Count 4.44 10^6/ul (4.0-5.4); Red Cell Distribution Width 16 % (10.5-15); White Blood Count 11.3 10^3/ul (3.5-10.8)
[2018-01-08] MEDS: methylPREDNISolone 125 MG* 2 ML VIAL IV SCH (05:47)
[2018-01-08 05:49] LABS: INR 2.61 (0.77-1.02)
[2018-01-08 05:59] LABS: EGFR Non-African American 85.1 (>60)
[2018-01-08] MEDS: Mometasone/Formoter 200/5 MDI INH SCH ×2 (07:56→19:47)
[2018-01-08] MEDS: Metoprolol Succinate XL TAB* 100 MG PO SCH (08:32)
[2018-01-08] MEDS: Tamsulosin CAP* 0.4 MG PO SCH (08:33)
[2018-01-08] MEDS: Ascorbic Acid TAB* 500 MG PO SCH (08:33)
[2018-01-08] MEDS: Insulin LISPRO* 1 UNITS UNIT SUBCUT SCH ×3 (08:33→17:19)
[2018-01-08] MEDS: Montelukast Sodium TAB* 10 MG PO SCH (08:33)
[2018-01-08] MEDS: Oseltamivir CAP* 75 MG CAP PO SCH ×2 (08:33→20:03)
[2018-01-08] MEDS: predniSONE TAB* 20 MG PO SCH (08:45)
[2018-01-08] MEDS: Furosemide IV* 10 MG/ML VIAL (40 MG) IV SLOW PU SCH (09:25)
[2018-01-08] MEDS: guaiFENesin ER TAB 600 MG PO SCH ×2 (09:25→20:03)
--- NOTE | 2018-01-08 11:11 | PN ---
Subjective Date of Service: 01/08/18 Interval History: Patient has improvement in SOB. Still gets very dyspnic with minimal activity. Patient still has audible wheezing at rest, patient examined soon after breathing treatment. Patient denies CP, F/C, N/V, abdominal pain, diarrhea, constipation, dysuria, or other pain. Patient denies leg pain and feels that the swelling in his legs is improved. Family History: Unchanged from Admission Social History: Unchanged from Admission Past Medical History: Unchanged from Admission Objective Active Medications: Acetaminophen (Tylenol Tab*) 650 mg PO Q4H PRN PRN Reason: FEVER/PAIN Last Admin: 01/07/18 20:35 Dose: 650 mg Albuterol (Ventolin 2.5 Mg/3 Ml Neb.Stefani*) 2.5 mg INH Q2H PRN PRN Reason: SOB/WHEEZING Last Admin: 01/08/18 06:00 Dose: 2.5 mg Albuterol/Ipratropium (Duoneb (Albuterol 2.5 Mg/Ipratropium 0.5 Mg)) 1 neb INH [id number] AWAKE [facility] Last Admin: 01/08/18 06:47 Dose: Not Given Ascorbic Acid (Vitamin C Tab*) 500 mg PO DAILY [facility] Last Admin: 01/08/18 08:33 Dose: 500 mg Dextrose (D50w Syringe 50 Ml*) 12.5 gm IV PUSH .FOR FS < 60 - SS PRN PRN Reason: FS < 60 Furosemide (Lasix Iv*) 40 mg IV SLOW PU DAILY [facility] Last Admin: 01/08/18 09:25 Dose: 40 mg Guaifenesin (Mucinex*) 1,200 mg PO BID [facility] Last Admin: 01/08/18 09:25 Dose: 1,200 mg Insulin Human Lispro (Humalog*) 0 units SUBCUT AC [facility] PRN Reason: Protocol Last Admin: 01/08/18 08:33 Dose: 3 units Metoprolol Succinate (Toprol Xl Tab*) 100 mg PO DAILY [facility] Last Admin: 01/08/18 08:32 Dose: 100 mg Mometasone Furoate/Formoterol Fumar (Dulera 200/5 Mdi*) 2 puff INH BID [facility] Last Admin: 01/08/18 07:56 Dose: 2 puff Montelukast Sodium (Singulair Tab*) 10 mg PO DAILY [facility] Last Admin: 02/25/18 08:33 Dose: 10 mg Ondansetron HCl (Zofran Inj*) 4 mg IV Q6H PRN PRN Reason: NAUSEA Oseltamivir Phosphate (Tamiflu Cap*) 75 mg PO BID [facility] Stop: 01/11/18 09:01 Last Admin: 01/08/18 08:33 Dose: 75 mg Prednisone (Deltasone Tab*) 60 mg PO DAILY [facility] Last Admin: 01/08/18 08:45 Dose: 60 mg Tamsulosin HCl (Flomax Cap*) 0.4 mg PO DAILY [facility] Last Admin: 01/08/18 08:33 Dose: 0.4 mg Warfarin Sodium (Coumadin Tab(*)) 3 mg PO DAILY@1700 [facility] PRN Reason: Protocol Last Admin: 01/07/18 17:06 Dose: 3 mg Vital Signs - 8 hr 01/08/18 01/08/18 01/08/18 03:57 06:03 06:35 Temperature 97.5 F 97.5 F Pulse Rate 57 54 65 Respiratory 20 20 21 Rate Blood Pressure 163/88 144/79 (mmHg) O2 Sat by Pulse 98 95 93 Oximetry 01/08/18 01/08/18 07:56 10:17 Temperature Pulse Rate Respiratory 20 Rate Blood Pressure (mmHg) O2 Sat by Pulse 93 Oximetry Oxygen Devices in Use Now: None Appearance: Patient is an 82yo male who appears stated age and is sitting in the bed with moderately increased WOB. Eyes: No Scleral Icterus, PERRLA Ears/Nose/Mouth/Throat: NL Teeth, Lips, Gums, Mucous Membranes Moist, - - Slight Pharyngeal erythema. Neck: NL Appearance and Movements; NL JVP, Trachea Midline Respiratory: Symmetrical Chest Expansion and Respiratory Effort, - - Musical expiratory wheezes throughout with prolongation of the expiratory phase. Cardiovascular: NL Sounds; No Murmurs; No JVD, RRR, - - 2+ Pitting edema in B/L LE. Abdominal: NL Sounds; No Tenderness; No Distention, No Hepatosplenomegaly Lymphatic: No Cervical Adenopathy Extremities: No Clubbing, Cyanosis Skin: No Rash or Ulcers, No Nodules or Sclerosis Neurological: Alert and Oriented x 3, NL Sensation, NL Muscle Strength and Tone , - - CN II-XII intact. Result Diagrams: 01/08/18 05:17 01/08/18 05:17 Additional Lab and Data: Lab Results Microbiology and Other Data: Microbiology 01/07/18 07:50 Gram Stain - Final Sputum Assess/Plan/Problems-Billing Assessment: Patient is an 82yo male with a PMH significant for Asthma, GELACIO, Afib, DM II, HTN , CLL who presents positive for Flu B with an asthma exacerbation. Patient is off of O2 but still has significant dyspnea with hypoxia on exertion. - Patient Problems (1) Influenza B Current Visit: Yes Status: Acute Code(s): J10.1 - FLU DUE TO OTH IDENT INFLUENZA VIRUS W OTH RESP MANIFEST SNOMED Code(s): 19242481 Comment: Influenza B positive. Still severe SOB with exertion. Continue Tamiflu and supportive care. Off of O2 at rest. (2) Atrial fibrillation Current Visit: Yes Status: Acute Code(s): I48.91 - UNSPECIFIED ATRIAL FIBRILLATION SNOMED Code(s): 42584116 Comment: Rate controlled, frequent ectopy. Patient states this is his baseline. Continue metoprolol and warfarin. INR therapeutic. (3) Lower extremity edema Current Visit: Yes Status: Acute Code(s): R60.0 - LOCALIZED EDEMA SNOMED Code(s): 059185655 Comment: Patient has lower extremity edema intermittently. Stable from yesterday. Will elevate legs. Increase dose of IV lasix. (4) Asthma Current Visit: Yes Status: Acute Code(s): J45.909 - UNSPECIFIED ASTHMA, UNCOMPLICATED SNOMED Code(s): 103419012 Comment: Currently in exacerbation likely due to influenza. Continue inhalers and Steroids. (5) CLL (chronic lymphocytic leukemia) Current Visit: Yes Status: Acute Code(s): C91.90 - LYMPHOID LEUKEMIA, UNSPECIFIED NOT HAVING ACHIEVED REMISSION SNOMED Code(s): 45455642 Comment: WBC count elevated likely due to steroids, follow up outpatient. (6) HTN (hypertension) Current Visit: Yes Status: Acute Code(s): I10 - ESSENTIAL (PRIMARY) HYPERTENSION SNOMED Code(s): 35940649 Comment: Normotensive. Continue metoprolol and lasix. (7) HLD (hyperlipidemia) Current Visit: Yes Status: Acute Code(s): E78.5 - HYPERLIPIDEMIA, UNSPECIFIED SNOMED Code(s): 76944245 Comment: Unknown level. On no medications. Follow up outpatient. (8) BPH (benign prostatic hyperplasia) Current Visit: Yes Status: Acute Code(s): N40.0 - BENIGN PROSTATIC HYPERPLASIA WITHOUT LOWER URINRY TRACT SYMP SNOMED Code(s): 230167298 Comment: Continue Flomax. (9) GELACIO (obstructive sleep apnea) Current Visit: Yes Status: Acute Code(s): G47.33 - OBSTRUCTIVE SLEEP APNEA ( ADULT) (PEDIATRIC) SNOMED Code(s): 87839879 Comment: Home CPAP in hospital. (10) Diabetes Current Visit: Yes Status: Acute Code(s): E11.9 - TYPE 2 DIABETES MELLITUS WITHOUT COMPLICATIONS SNOMED Code(s): 10522316 Comment: SSI, continue metformin at discharge. Moderately Good control at this time. Will update hemoblogin A1c. (11) Elevated troponin Current Visit: Yes Status: Acute Code(s): R74.8 - ABNORMAL LEVELS OF OTHER SERUM ENZYMES SNOMED Code(s): 117123299 Comment: Up to .04 and stable x3. No chest pain. Likely demand ischemia. Possible outpatient stress test recommended. (12) Full code status Current Visit: Yes Status: Acute Code(s): Z78.9 - OTHER SPECIFIED HEALTH STATUS SNOMED Code(s): 113091736 (13) DVT prophylaxis Current Visit: Yes Status: Acute Code(s): DDJ9966 - SNOMED Code(s): 959402277 Comment: Warfarin, Therapeutic. Status and Disposition: Patient is admitted inpatient. Discharge when able to function at home.
[2018-01-08] MEDS: Warfarin TAB(*) 3 MG PO SCH (17:19)
[2018-01-09] MEDS: Albuterol/Ipratropium NEB.SOL* Albuterol 2.5 MG/Ipratropium 0.5 MG 3 ML INH SCH ×4 (01:06→18:11)
[2018-01-09] MEDS: Mometasone/Formoter 200/5 MDI INH SCH ×2 (07:48→20:41)
[2018-01-09] MEDS: Metoprolol Succinate XL TAB* 100 MG PO SCH (08:48)
[2018-01-09] MEDS: Tamsulosin CAP* 0.4 MG PO SCH (08:48)
[2018-01-09] MEDS: Oseltamivir CAP* 75 MG CAP PO SCH ×2 (08:49→20:23)
[2018-01-09] MEDS: Ascorbic Acid TAB* 500 MG PO SCH (08:49)
[2018-01-09] MEDS: guaiFENesin ER TAB 600 MG PO SCH ×2 (08:49→20:23)
[2018-01-09] MEDS: Montelukast Sodium TAB* 10 MG PO SCH (08:49)
[2018-01-09] MEDS: predniSONE TAB* 20 MG PO SCH (08:49)
[2018-01-09] MEDS: Insulin LISPRO* 1 UNITS UNIT SUBCUT SCH ×3 (08:50→16:56)
[2018-01-09] MEDS: Furosemide IV* 10 MG/ML VIAL (40 MG) IV SLOW PU SCH (08:50)
[2018-01-09 09:32] LABS: ABS Basophils 0 10^3/ul (0-0.2); ABS Eosinophils 0 10^3/ul (0-0.6); ABS Monocytes 1.1 10^3/ul (0-0.8); ABS Neutrophils 11.6 10^3/ul (1.5-7.7); ABS Nucleated RBC 0 10^3/ul; Eosinophil % 0 % (0-6); Hematocrit 40 % (42-52); Hemoglobin 13.3 g/dl (14.0-18.0); Lymphocyte % 7.4 % (25-47); Mean Corpuscular HGB Conc 33 g/dl (31-36); Mean Corpuscular Hemoglobin 29 pg (27-31); Mean Corpuscular Volume 88 fL (80-94); Mean Platelet Volume 8 um3 (7.4-10.4); Nucleated Red Blood Cells % 0; Platelet Count 161 10^3/ul (150-450); Red Blood Count 4.56 10^6/ul (4.0-5.4); Red Cell Distribution Width 16 % (10.5-15); White Blood Count 13.7 10^3/ul (3.5-10.8)
[2018-01-09 09:46] LABS: EGFR Non-African American 80.8 (>60)
[2018-01-09] MEDS ORDERED: Magnesium Sulfate 1 GM IV* 1 GM/100 ML BAG IV ONE (13:00)
[2018-01-09] MEDS ORDERED: Azithromycin IV(*) 500 MG in D5W 250 ML BAG* 250 ML IVPB SCH (13:00)
--- NOTE | 2018-01-09 13:05 | PN ---
Subjective Date of Service: 01/09/18 Interval History: Patient seen and examined. 4 beats VTach overnight, asymptomatic per RN. Patient is very SOB at rest and having wheezing. Remains on O2. Discussed COPD as new diagnosis (patient's doesn't/ think he has COPD), given hx of smoking and and second hand smoke from who just quit smoking 1.5 years ago , also hyperinflation on CXR. WBC elevated today, no chest pain, no n/v, does feel too SOB to ambulate today but is ok sitting up in bed and going to the bathroom. Family History: Unchanged from Admission Social History: Unchanged from Admission Past Medical History: Unchanged from Admission Objective Active Medications: Acetaminophen (Tylenol Tab*) 650 mg PO Q4H PRN PRN Reason: FEVER/PAIN Last Admin: 01/07/18 20:35 Dose: 650 mg Albuterol (Ventolin 2.5 Mg/3 Ml Neb.Stefani*) 2.5 mg INH Q2H PRN PRN Reason: SOB/WHEEZING Last Admin: 01/08/18 06:00 Dose: 2.5 mg Albuterol/Ipratropium (Duoneb (Albuterol 2.5 Mg/Ipratropium 0.5 Mg)) 1 neb INH [id number] AWAKE [facility] Last Admin: 01/09/18 12:46 Dose: 1 neb Ascorbic Acid (Vitamin C Tab*) 500 mg PO DAILY [facility] Last Admin: 01/09/18 08:49 Dose: 500 mg Dextrose (D50w Syringe 50 Ml*) 12.5 gm IV PUSH .FOR FS < 60 - SS PRN PRN Reason: FS < 60 Furosemide (Lasix Iv*) 40 mg IV SLOW PU DAILY [facility] Last Admin: 01/09/18 08:50 Dose: 40 mg Guaifenesin (Mucinex*) 1,200 mg PO BID [facility] Last Admin: 01/09/18 08:49 Dose: 1,200 mg Magnesium Sulfate/Dextrose (Magnesium Sulfate 1 Gm Iv*) 1 gm in 100 mls @ 200 mls/hr IV ONCE ONE Stop: 01/09/18 13:29 Azithromycin 500 mg/ Dextrose 250 mls @ 250 mls/hr IVPB Q24H [facility] Insulin Human Lispro (Humalog*) 0 units SUBCUT AC [facility] PRN Reason: Protocol Last Admin: 01/09/18 08:50 Dose: 2 units Metoprolol Succinate (Toprol Xl Tab*) 100 mg PO DAILY [facility] Last Admin: 01/09/18 08:48 Dose: 100 mg Mometasone Furoate/Formoterol Fumar (Dulera 200/5 Mdi*) 2 puff INH BID [facility] Last Admin: 01/09/18 07:48 Dose: 2 puff Montelukast Sodium (Singulair Tab*) 10 mg PO DAILY [facility] Last Admin: 01/09/18 08:49 Dose: 10 mg Oseltamivir Phosphate (Tamiflu Cap*) 75 mg PO BID [facility] Stop: 01/11/18 09:01 Last Admin: 01/09/18 08:49 Dose: 75 mg Prednisone (Deltasone Tab*) 60 mg PO DAILY [facility] Last Admin: 01/09/18 08:49 Dose: 60 mg Tamsulosin HCl (Flomax Cap*) 0.4 mg PO DAILY [facility] Last Admin: 01/09/18 08:48 Dose: 0.4 mg Warfarin Sodium (Coumadin Tab(*)) 3 mg PO DAILY@1700 [facility] PRN Reason: Protocol Last Admin: 01/08/18 17:19 Dose: 3 mg Vital Signs - 8 hr 01/09/18 01/09/18 01/09/18 07:18 07:51 08:00 Temperature 97.5 F Pulse Rate 62 62 Respiratory 16 16 20 Rate Blood Pressure 143/95 (mmHg) O2 Sat by Pulse 97 99 Oximetry 01/09/18 01/09/18 01/09/18 11:01 11:22 12:48 Temperature 97.2 F Pulse Rate 61 18 64 Respiratory 20 64 16 Rate Blood Pressure 148/81 (mmHg) O2 Sat by Pulse 97 97 98 Oximetry Oxygen Devices in Use Now: Nasal Cannula Appearance: Alert, NAD Ears/Nose/Mouth/Throat: Clear Oropharnyx, Mucous Membranes Moist Neck: Trachea Midline Respiratory: - - bilateral expiratory wheeze, no rhonchi or rales, increased accesory muscle use Abdominal: NL Sounds; No Tenderness; No Distention Extremities: - - LLE with ankle edema Neurological: Alert and Oriented x 3 Nutrition: Taking PO's Result Diagrams: 01/09/18 09:07 01/09/18 09:07 Additional Lab and Data: Lab Results Microbiology and Other Data: Microbiology 01/07/18 07:50 Gram Stain - Final Sputum Diagnostic Imaging: Patient Name: GUZMAN BARTH Medical Record#: [id number] Ordering Physician: Liz Jha MD Acct.#: [id number] : 1935 Age: 82 Sex: M Location: EMERGENCY DEPARTMENT Exam Date: 01/06/18 1040 ADM Status: REG ER Order Information: CHEST PA & LAT 2 VWS Accession Number: [id number] CPT: 64376 INDICATION: Shortness of breath. COMPARISON: Comparison is made with a prior study from October 17, 2016. TECHNIQUE: AP and lateral views of the chest were obtained. FINDINGS: The heart is mildly enlarged and unchanged from the prior study. The lungs are hyperinflated and clear. IMPRESSION: FINDINGS SUGGESTIVE OF COPD, NO EVIDENCE FOR ACUTE FINDING. <Electronically signed by Musa Baptiste MD in [place]> 01/06/18 1126 Dictated By: Musa Baptiste MD Dictated Date/Time: 01/06/18 1126 Transcribed Date/Time: 01/06/18 1124 Copy to: Assess/Plan/Problems-Billing Assessment: Patient is an 82yo male with a PMH significant for GELACIO, Afib, DM II, HTN, CLL who presents positive for Flu B and what is likely COPD exacerbation, although he has never been diagnosed with COPD and denies asthma hx. - Patient Problems (1) Influenza B Code(s): J10.1 - FLU DUE TO OTH IDENT INFLUENZA VIRUS W OTH RESP MANIFEST SNOMED Code(s): 40536890 Comment: - Influenza B positive - Tamiflu dose 6 of 10 - O2 - Supportive care (2) COPD with exacerbation Code(s): J44.1 - CHRONIC OBSTRUCTIVE PULMONARY DISEASE W (ACUTE) EXACERBATION SNOMED Code(s): 695478590 Comment: - Per patient, no history of COPD but has history of smoking and second hand exposure with hyperinflation on CXR - Will start azithromycin today given extensive wheezing and continued SOB - Continue prednisone - Continue nebs, dulera, mucinex - Add IS today - One gram mag now given extensive wheeze (asthma?) and overnight arrhythmia (3) Elevated troponin Code(s): R74.8 - ABNORMAL LEVELS OF OTHER SERUM ENZYMES SNOMED Code(s): 564726388 Comment: - Leveled off at 0.04 - Likely demand ischemia in the setting of acute lung issues - No chest pain (4) Atrial fibrillation Code(s): I48.91 - UNSPECIFIED ATRIAL FIBRILLATION SNOMED Code(s): 25900321 Comment: - Rate controlled on metoprolol and coumadit for AC - Vtach last night, asymptomatic 4 beats - 1 gram manesium now and continue tele - Follow INR, currently therapeutic (5) BPH (benign prostatic hyperplasia) Code(s): N40.0 - BENIGN PROSTATIC HYPERPLASIA WITHOUT LOWER URINRY TRACT SYMP SNOMED Code(s): 041732456 Comment: - Continue Flomax. (6) CLL (chronic lymphocytic leukemia) Code(s): C91.90 - LYMPHOID LEUKEMIA, UNSPECIFIED NOT HAVING ACHIEVED REMISSION SNOMED Code(s): 07501525 Comment: - Stable (7) Diabetes Code(s): E11.9 - TYPE 2 DIABETES MELLITUS WITHOUT COMPLICATIONS SNOMED Code(s) : 38396685 Comment: - Labilt sugars - Continue lispro SSI while inpatient - Back on metformin at discharge (8) HTN (hypertension) Code(s): I10 - ESSENTIAL (PRIMARY) HYPERTENSION SNOMED Code(s): 55736475 Comment: - Normotensive. Continue metoprolol and lasix. (9) Leukocytosis Code(s): D72.829 - ELEVATED WHITE BLOOD CELL COUNT, UNSPECIFIED SNOMED Code(s) : 360655338 Comment: - May be steroid related, not likley his CLL - With continued wheeze and SOB, will cover with azithromycin starting today - Had levaquin in ER - Strep and legionella negative Status and Disposition: Remain inpatient, dispo planning to home.
[2018-01-09] MEDS: Azithromycin IV(*) 500 MG in NS 0.9% 250 ML* 250 ML IVPB SCH (14:21)
[2018-01-09] MEDS: Warfarin TAB(*) 3 MG PO SCH (16:57)
[2018-01-10] MEDS: Benzocaine/Menthol LOZ* 1 LOZENGE MT PRN ×2 (01:30→19:45)
[2018-01-10] MEDS: Albuterol/Ipratropium NEB.SOL* Albuterol 2.5 MG/Ipratropium 0.5 MG 3 ML INH SCH ×4 (01:41→20:29)
[2018-01-10] MEDS: Mometasone/Formoter 200/5 MDI INH SCH ×3 (06:02→20:29)
[2018-01-10] MEDS: Insulin LISPRO* 1 UNITS UNIT SUBCUT SCH ×3 (07:54→18:14)
[2018-01-10] MEDS: guaiFENesin ER TAB 600 MG PO SCH ×2 (08:40→19:45)
[2018-01-10] MEDS: Tamsulosin CAP* 0.4 MG PO SCH (08:40)
[2018-01-10] MEDS: Metoprolol Succinate XL TAB* 100 MG PO SCH (08:40)
[2018-01-10] MEDS: predniSONE TAB* 20 MG PO SCH (08:40)
[2018-01-10] MEDS: Oseltamivir CAP* 75 MG CAP PO SCH ×2 (08:40→19:45)
[2018-01-10] MEDS: Ascorbic Acid TAB* 500 MG PO SCH (08:41)
[2018-01-10] MEDS: Furosemide IV* 10 MG/ML VIAL (40 MG) IV SLOW PU SCH (08:41)
[2018-01-10] MEDS: Montelukast Sodium TAB* 10 MG PO SCH (08:41)
--- NOTE | 2018-01-10 11:11 | PN ---
Subjective Date of Service: 01/10/18 Interval History: Patient seen and examined. Off O2 while in bed, patient states he is tolerating for about an hour but feels like he needs to put it back on. Still desat's when ambulating. Denies chest pain, no n/v, no fever or chills. Family History: Unchanged from Admission Social History: Unchanged from Admission Past Medical History: Unchanged from Admission Objective Active Medications: Acetaminophen (Tylenol Tab*) 650 mg PO Q4H PRN PRN Reason: FEVER/PAIN Last Admin: 01/07/18 20:35 Dose: 650 mg Albuterol (Ventolin 2.5 Mg/3 Ml Neb.Stefani*) 2.5 mg INH Q2H PRN PRN Reason: SOB/WHEEZING Last Admin: 01/08/18 06:00 Dose: 2.5 mg Albuterol/Ipratropium (Duoneb (Albuterol 2.5 Mg/Ipratropium 0.5 Mg)) 1 neb INH [id number] AWAKE [facility] Last Admin: 01/10/18 06:03 Dose: 1 neb Ascorbic Acid (Vitamin C Tab*) 500 mg PO DAILY [facility] Last Admin: 01/10/18 08:41 Dose: 500 mg Dextrose (D50w Syringe 50 Ml*) 12.5 gm IV PUSH .FOR FS < 60 - SS PRN PRN Reason: FS < 60 Furosemide (Lasix Iv*) 40 mg IV SLOW PU DAILY [facility] Last Admin: 01/10/18 08:41 Dose: 40 mg Guaifenesin (Mucinex*) 1,200 mg PO BID [facility] Last Admin: 01/10/18 08:40 Dose: 1,200 mg Azithromycin 500 mg/ Sodium (Chloride) 250 mls @ 250 mls/hr IVPB Q24H [facility] Last Admin: 01/09/18 14:21 Dose: 250 mls/hr Insulin Human Lispro (Humalog*) 0 units SUBCUT AC [facility] PRN Reason: Protocol Last Admin: 01/10/18 07:54 Dose: Not Given Metoprolol Succinate (Toprol Xl Tab*) 100 mg PO DAILY [facility] Last Admin: 01/10/18 08:40 Dose: 100 mg Mometasone Furoate/Formoterol Fumar (Dulera 200/5 Mdi*) 2 puff INH BID [facility] Last Admin: 01/10/18 08:11 Dose: Not Given Montelukast Sodium (Singulair Tab*) 10 mg PO DAILY [facility] Last Admin: 01/10/18 08:41 Dose: 10 mg Oseltamivir Phosphate (Tamiflu Cap*) 75 mg PO BID [facility] Stop: 01/11/18 09:01 Last Admin: 01/10/18 08:40 Dose: 75 mg Prednisone (Deltasone Tab*) 60 mg PO DAILY [facility] Last Admin: 01/10/18 08:40 Dose: 60 mg Tamsulosin HCl (Flomax Cap*) 0.4 mg PO DAILY [facility] Last Admin: 01/10/18 08:40 Dose: 0.4 mg Throat Lozenges (Chloraseptic Bar*) 1 bar MT Q6H PRN PRN Reason: COUGH Last Admin: 01/10/18 01:30 Dose: 1 bar Warfarin Sodium (Coumadin Tab(*)) 3 mg PO DAILY@1700 [facility] PRN Reason: Protocol Last Admin: 01/09/18 16:57 Dose: 3 mg Vital Signs - 8 hr 01/10/18 01/10/18 01/10/18 03:32 06:05 06:06 Temperature 97.3 F Pulse Rate 60 59 59 Respiratory 22 20 20 Rate Blood Pressure 175/87 (mmHg) O2 Sat by Pulse 96 98 98 Oximetry 01/10/18 01/10/18 07:45 08:00 Temperature 97.2 F Pulse Rate 60 Respiratory 16 22 Rate Blood Pressure 156/88 (mmHg) O2 Sat by Pulse 95 Oximetry Oxygen Devices in Use Now: Nasal Cannula - 2L intermittent Appearance: Alert, NAD Ears/Nose/Mouth/Throat: Clear Oropharnyx, Mucous Membranes Moist Neck: Trachea Midline Respiratory: Symmetrical Chest Expansion and Respiratory Effort, - - wheeze and crackles L, improved on R Cardiovascular: - - bipedal edema improving, chronic afib on tele, no further ectopy noted today Neurological: Alert and Oriented x 3, NL Sensation, NL Gait Nutrition: Taking PO's Result Diagrams: 01/09/18 09:07 01/09/18 09:07 Additional Lab and Data: Lab Results Microbiology and Other Data: Microbiology 01/07/18 07:50 Gram Stain - Final Sputum Diagnostic Imaging: Patient Name: GUZMAN BARTH Medical Record#: [id number] Ordering Physician: Liz Jha MD Acct.#: [id number] : 1935 Age: 82 Sex: M Location: EMERGENCY DEPARTMENT Exam Date: 01/06/18 1040 ADM Status: REG ER Order Information: CHEST PA & LAT 2 VWS Accession Number: [id number] CPT: 56367 INDICATION: Shortness of breath. COMPARISON: Comparison is made with a prior study from October 17, 2016. TECHNIQUE: AP and lateral views of the chest were obtained. FINDINGS: The heart is mildly enlarged and unchanged from the prior study. The lungs are hyperinflated and clear. IMPRESSION: FINDINGS SUGGESTIVE OF COPD, NO EVIDENCE FOR ACUTE FINDING. <Electronically signed by Musa Baptiste MD in [place]> 01/06/18 1126 Dictated By: Musa Baptiste MD Dictated Date/Time: 01/06/18 1126 Transcribed Date/Time: 01/06/18 112 Copy to: Assess/Plan/Problems-Billing Assessment: Patient is an 82yo male with a PMH significant for GELACIO, Afib, DM II, HTN, CLL who presents positive for Flu B and what is likely COPD exacerbation, although he has never been diagnosed with COPD and denies asthma hx. - Patient Problems (1) Influenza B Code(s): J10.1 - FLU DUE TO OTH IDENT INFLUENZA VIRUS W OTH RESP MANIFEST SNOMED Code(s): 77858183 Comment: - Influenza B positive - Tamiflu dose 8 of 10 - O2 - Supportive care (2) COPD with exacerbation Code(s): J44.1 - CHRONIC OBSTRUCTIVE PULMONARY DISEASE W (ACUTE) EXACERBATION SNOMED Code(s): 181687468 Comment: - Per patient, no history of COPD but has history of smoking and second hand exposure with hyperinflation on CXR - Continue azithromycin today given extensive wheezing and continued SOB, day 2 of 5 - Continue prednisone and IS - Continue nebs, dulera, mucinex - s/p 1 gram mag 01/09 - Walking sats on and off O2 today (3) Elevated troponin Code(s): R74.8 - ABNORMAL LEVELS OF OTHER SERUM ENZYMES SNOMED Code(s): 602773297 Comment: - Leveled off at 0.04 - Likely demand ischemia in the setting of acute lung issues - No chest pain (4) Atrial fibrillation Code(s): I48.91 - UNSPECIFIED ATRIAL FIBRILLATION SNOMED Code(s): 79857005 Comment: - Rate controlled on metoprolol and coumadit for AC - Vtach 4 beats 01/08 resolved aftermag - Follow INR houtson on warfarin, currently therapeutic (5) BPH (benign prostatic hyperplasia) Code(s): N40.0 - BENIGN PROSTATIC HYPERPLASIA WITHOUT LOWER URINRY TRACT SYMP SNOMED Code(s): 907249892 Comment: - Continue Flomax (6) CLL (chronic lymphocytic leukemia) Code(s): C91.90 - LYMPHOID LEUKEMIA, UNSPECIFIED NOT HAVING ACHIEVED REMISSION SNOMED Code(s): 25212061 Comment: - Stable (7) Diabetes Code(s): E11.9 - TYPE 2 DIABETES MELLITUS WITHOUT COMPLICATIONS SNOMED Code(s) : 44921065 Comment: - Labile sugars now improving - Continue lispro SSI while inpatient - Back on metformin at discharge (8) HTN (hypertension) Code(s): I10 - ESSENTIAL (PRIMARY) HYPERTENSION SNOMED Code(s): 99677382 Comment: - Normotensive. Continue metoprolol and lasix (9) Leukocytosis Code(s): D72.829 - ELEVATED WHITE BLOOD CELL COUNT, UNSPECIFIED SNOMED Code(s) : 982846364 Comment: - May be steroid related, not likley his CLL - Had levaquin in ER, strep and legionella negative - Afebrile, contiue to monitor Status and Disposition: Remain inpatient, dispo planning to home maybe tomorrow. Counseling and/or Coordination of Care Minutes: coordinated with patient and staff
[2018-01-10] MEDS ORDERED: amLODIPine TAB* 5 MG PO SCH (12:15)
[2018-01-10] MEDS: Azithromycin IV(*) 500 MG in NS 0.9% 250 ML* 250 ML IVPB SCH (14:01)
[2018-01-10] MEDS: Warfarin TAB(*) 3 MG PO SCH (18:14)
[2018-01-11] MEDS: Albuterol/Ipratropium NEB.SOL* Albuterol 2.5 MG/Ipratropium 0.5 MG 3 ML INH SCH ×4 (01:20→19:04)
[2018-01-11] MEDS: Insulin LISPRO* 1 UNITS UNIT SUBCUT SCH ×3 (07:29→17:18)
[2018-01-11] MEDS: Benzocaine/Menthol LOZ* 1 LOZENGE MT PRN (07:40)
[2018-01-11] MEDS: Ascorbic Acid TAB* 500 MG PO SCH (08:26)
[2018-01-11] MEDS: guaiFENesin ER TAB 600 MG PO SCH ×2 (08:26→20:45)
[2018-01-11] MEDS: Oseltamivir CAP* 75 MG CAP PO SCH (08:27)
[2018-01-11] MEDS: Furosemide IV* 10 MG/ML VIAL (40 MG) IV SLOW PU SCH (08:27)
[2018-01-11] MEDS: Montelukast Sodium TAB* 10 MG PO SCH (08:27)
[2018-01-11] MEDS: predniSONE TAB* 20 MG PO SCH (08:27)
[2018-01-11] MEDS: Tamsulosin CAP* 0.4 MG PO SCH (08:27)
[2018-01-11] MEDS: Metoprolol Succinate XL TAB* 100 MG PO SCH (08:27)
[2018-01-11] MEDS: Mometasone/Formoter 200/5 MDI INH SCH ×2 (10:14→19:05)
--- NOTE | 2018-01-11 10:50 | PN ---
Subjective Date of Service: 01/11/18 Interval History: Patient seen and examined. No acute overnight events. Per CM, walking sat is 94 % off O2 now. Still complaining of unproductive cough, denies fever or chills, still has wheeze but no SOB. States chest wall pain with deep inspiration or cough. Family History: Unchanged from Admission Social History: Unchanged from Admission Past Medical History: Unchanged from Admission Objective Active Medications: Acetaminophen (Tylenol Tab*) 650 mg PO Q4H PRN PRN Reason: FEVER/PAIN Last Admin: 01/07/18 20:35 Dose: 650 mg Albuterol (Ventolin 2.5 Mg/3 Ml Neb.Stefani*) 2.5 mg INH Q2H PRN PRN Reason: SOB/WHEEZING Last Admin: 01/08/18 06:00 Dose: 2.5 mg Albuterol/Ipratropium (Duoneb (Albuterol 2.5 Mg/Ipratropium 0.5 Mg)) 1 neb INH [id number] AWAKE [facility] Last Admin: 01/11/18 05:49 Dose: 1 neb Ascorbic Acid (Vitamin C Tab*) 500 mg PO DAILY [facility] Last Admin: 01/11/18 08:26 Dose: 500 mg Dextrose (D50w Syringe 50 Ml*) 12.5 gm IV PUSH .FOR FS < 60 - SS PRN PRN Reason: FS < 60 Furosemide (Lasix Iv*) 40 mg IV SLOW PU DAILY [facility] Last Admin: 01/11/18 08:27 Dose: 40 mg Guaifenesin (Mucinex*) 1,200 mg PO BID [facility] Last Admin: 01/11/18 08:26 Dose: 1,200 mg Azithromycin 500 mg/ Sodium (Chloride) 250 mls @ 250 mls/hr IVPB Q24H [facility] Last Admin: 01/10/18 14:01 Dose: 250 mls/hr Insulin Human Lispro (Humalog*) 0 units SUBCUT AC [facility] PRN Reason: Protocol Last Admin: 01/11/18 07:29 Dose: Not Given Metoprolol Succinate (Toprol Xl Tab*) 100 mg PO DAILY [facility] Last Admin: 01/11/18 08:27 Dose: 100 mg Mometasone Furoate/Formoterol Fumar (Dulera 200/5 Mdi*) 2 puff INH BID [facility] Last Admin: 01/11/18 10:14 Dose: 2 puff Montelukast Sodium (Singulair Tab*) 10 mg PO DAILY [facility] Last Admin: 01/11/18 08:27 Dose: 10 mg Prednisone (Deltasone Tab*) 60 mg PO DAILY [facility] Last Admin: 01/11/18 08:27 Dose: 60 mg Tamsulosin HCl (Flomax Cap*) 0.4 mg PO DAILY [facility] Last Admin: 01/11/18 08:27 Dose: 0.4 mg Throat Lozenges (Chloraseptic Bar*) 1 bar MT Q6H PRN PRN Reason: COUGH Last Admin: 01/11/18 07:40 Dose: 1 bar Warfarin Sodium (Coumadin Tab(*)) 3 mg PO DAILY@1700 [facility] PRN Reason: Protocol Last Admin: 01/10/18 18:14 Dose: 3 mg Vital Signs - 8 hr 01/11/18 01/11/18 01/11/18 03:11 05:50 07:35 Temperature 97.9 F 97.3 F Pulse Rate 61 55 53 Respiratory 20 18 15 Rate Blood Pressure 139/70 160/82 (mmHg) O2 Sat by Pulse 95 99 93 Oximetry 01/11/18 08:00 Temperature Pulse Rate Respiratory 15 Rate Blood Pressure (mmHg) O2 Sat by Pulse Oximetry Oxygen Devices in Use Now: None Appearance: Alert, NAD Ears/Nose/Mouth/Throat: NL Teeth, Lips, Gums, Mucous Membranes Moist Neck: NL Appearance and Movements; NL JVP, Trachea Midline Respiratory: Symmetrical Chest Expansion and Respiratory Effort - expiratory wheeze left, some rhonchi that moves with cough Cardiovascular: NL Sounds; No Murmurs; No JVD, - - edema improved Abdominal: NL Sounds; No Tenderness; No Distention Neurological: Alert and Oriented x 3, NL Gait Nutrition: Taking PO's Result Diagrams: 01/09/18 09:07 01/09/18 09:07 Additional Lab and Data: Lab Results Microbiology and Other Data: Microbiology 01/07/18 07:50 Gram Stain - Final Sputum Diagnostic Imaging: Patient Name: GUZMAN BARTH Medical Record#: [id number] Ordering Physician: Liz Jha MD Acct.#: [id number] : 1935 Age: 82 Sex: M Location: EMERGENCY DEPARTMENT Exam Date: 01/06/18 1040 ADM Status: REG ER Order Information: CHEST PA & LAT 2 VWS Accession Number: [id number] CPT: 47668 INDICATION: Shortness of breath. COMPARISON: Comparison is made with a prior study from October 17, 2016. TECHNIQUE: AP and lateral views of the chest were obtained. FINDINGS: The heart is mildly enlarged and unchanged from the prior study. The lungs are hyperinflated and clear. IMPRESSION: FINDINGS SUGGESTIVE OF COPD, NO EVIDENCE FOR ACUTE FINDING. <Electronically signed by Musa Baptiste MD in OV> 01/06/18 112 Dictated By: Musa Baptiste MD Dictated Date/Time: 01/06/18 112 Transcribed Date/Time: 01/06/18 112 Copy to: Assess/Plan/Problems-Billing Assessment: Patient is an 82yo male with a PMH significant for GELACIO, Afib, DM II, HTN, CLL who presents positive for Flu B and what is likely COPD exacerbation, although he has never been diagnosed with COPD and denies asthma hx. - Patient Problems (1) Influenza B Code(s): J10.1 - FLU DUE TO OTH IDENT INFLUENZA VIRUS W OTH RESP MANIFEST SNOMED Code(s): 59620709 Comment: - Influenza B positive - Tamiflu completed - O2 PRN, he is off now and satting ok - Supportive care (2) COPD with exacerbation Code(s): J44.1 - CHRONIC OBSTRUCTIVE PULMONARY DISEASE W (ACUTE) EXACERBATION SNOMED Code(s): 497525760 Comment: - Per patient, no history of COPD but has history of smoking and second hand exposure with hyperinflation on CXR - Continue azithromycin, day 3 of 5 - Continue prednisone and IS - Continue nebs, dulera, mucinex - s/p 1 gram mag 01/09 - Walking sats on and off O2 today (3) Elevated troponin Code(s): R74.8 - ABNORMAL LEVELS OF OTHER SERUM ENZYMES SNOMED Code(s): 540192408 Comment: - Leveled off at 0.04 - Likely demand ischemia in the setting of acute lung issues - Has atypical chest wall pain today and is reproducible with palpation and inspiration, likely MS and r/t cough (4) Atrial fibrillation Code(s): I48.91 - UNSPECIFIED ATRIAL FIBRILLATION SNOMED Code(s): 79553606 Comment: - Rate controlled on metoprolol and coumadit for AC - Vtach 4 beats 01/08 resolved after mag infusion - Stable (5) BPH (benign prostatic hyperplasia) Code(s): N40.0 - BENIGN PROSTATIC HYPERPLASIA WITHOUT LOWER URINRY TRACT SYMP SNOMED Code(s): 335001719 Comment: - Continue Flomax (6) CLL (chronic lymphocytic leukemia) Code(s): C91.90 - LYMPHOID LEUKEMIA, UNSPECIFIED NOT HAVING ACHIEVED REMISSION SNOMED Code(s): 39510015 Comment: - Stable (7) Diabetes Code(s): E11.9 - TYPE 2 DIABETES MELLITUS WITHOUT COMPLICATIONS SNOMED Code(s) : 06622271 Comment: - Continue lispro SSI while inpatient - Back on metformin at discharge (8) HTN (hypertension) Code(s): I10 - ESSENTIAL (PRIMARY) HYPERTENSION SNOMED Code(s): 34767354 Comment: - Normotensive. Continue metoprolol and lasix (9) Leukocytosis Code(s): D72.829 - ELEVATED WHITE BLOOD CELL COUNT, UNSPECIFIED SNOMED Code(s) : 856063206 Comment: - May be steroid related, not likley his CLL - Had levaquin in ER, strep and legionella negative - Afebrile - Recheck labs in AM (10) Hyponatremia Code(s): E87.1 - HYPO-OSMOLALITY AND HYPONATREMIA SNOMED Code(s): 94231591 Comment: - Placed on fluid restriction yesterday - Recheck lytes in AM Status and Disposition: Remain inpatient, dispo planning to home. Patient wants to be DC today, however I think he will benefit from one additional day of treatment.
[2018-01-11] MEDS: Azithromycin IV(*) 500 MG in NS 0.9% 250 ML* 250 ML IVPB SCH (13:09)
[2018-01-11] MEDS: Warfarin TAB(*) 3 MG PO SCH (17:18)
[2018-01-12] MEDS: Albuterol/Ipratropium NEB.SOL* Albuterol 2.5 MG/Ipratropium 0.5 MG 3 ML INH SCH ×3 (00:55→12:45)
[2018-01-12 06:29] LABS: ABS Basophils 0 10^3/ul (0-0.2); ABS Eosinophils 0 10^3/ul (0-0.6); ABS Lymphocytes 2.3 10^3/ul (1.0-4.8); ABS Neutrophils 7.2 10^3/ul (1.5-7.7); ABS Nucleated RBC 0 10^3/ul; Eosinophil % 0.4 % (0-6); Hematocrit 40 % (42-52); Hemoglobin 13.4 g/dl (14.0-18.0); Lymphocyte % 22.2 % (25-47); Mean Corpuscular HGB Conc 34 g/dl (31-36); Mean Corpuscular Hemoglobin 29 pg (27-31); Mean Corpuscular Volume 87 fL (80-94); Mean Platelet Volume 8 um3 (7.4-10.4); Nucleated Red Blood Cells % 0; Platelet Count 157 10^3/ul (150-450); Red Cell Distribution Width 15 % (10.5-15); White Blood Count 10.6 10^3/ul (3.5-10.8)
[2018-01-12 06:43] LABS: EGFR Non-African American 98.2 (>60)
[2018-01-12] MEDS: Mometasone/Formoter 200/5 MDI INH SCH (08:10)
[2018-01-12] MEDS: guaiFENesin ER TAB 600 MG PO SCH (09:33)
[2018-01-12] MEDS: Insulin LISPRO* 1 UNITS UNIT SUBCUT SCH ×2 (09:34→13:04)
[2018-01-12] MEDS: Metoprolol Succinate XL TAB* 100 MG PO SCH (09:34)
[2018-01-12] MEDS: Furosemide IV* 10 MG/ML VIAL (40 MG) IV SLOW PU SCH (09:34)
[2018-01-12] MEDS: Montelukast Sodium TAB* 10 MG PO SCH (09:34)
[2018-01-12] MEDS: Ascorbic Acid TAB* 500 MG PO SCH (09:34)
[2018-01-12] MEDS: Tamsulosin CAP* 0.4 MG PO SCH (09:34)
[2018-01-12] MEDS: predniSONE TAB* 20 MG PO SCH (09:34)
[2018-01-12 11:58] VITALS: BP 151/71
[2018-01-12] MEDS ORDERED: Azithromycin TAB* 250 MG PO SCH (13:00)
--- NOTE | 2018-01-13 08:01 | DS ---
AMENDED REPORT NOW INCLUDES COSIGNER DESIGNATION - ESIGNED BEFORE ADJUSTMENT CC: Dr. Galicia * DISCHARGE SUMMARY: DATE OF ADMISSION: 01/06/18 DATE OF DISCHARGE: 01/12/18 PRIMARY CARE PROVIDER: Abel Galicia DO. ATTENDING FOR THIS ADMISSION: Mao Jacobs MD. MY ATTENDING FOR TODAY: Ann Marie Ramsay DO * (DICTATED BY MARA PARSON NP) HOSPITAL COURSE: This is a very pleasant 82-year-old male patient who came in with complaint of shortness of breath on 01/06/18. The patient was found to be influenza positive also has some underlying COPD also with a past medical history significant for obstructive sleep apnea, atrial fibrillation, diabetes mellitus type 2, hypertension, and CLL. The patient was admitted. Tamiflu was started. He was de-satting and had some hypoxic episodes. He was given supplemental oxygen and appeared to improve. He was also started on azithromycin, prednisone, nebulizers, Dulera, Mucinex, and incentive spirometry. The patient had walking sats on and off oxygen; he maintains at 94 % as of today and will not require home oxygen. Also significant note he had elevated troponins, they leveled off at 0.04. This is likely secondary to demand ischemia secondary to his lung issues. His atrial fibrillation was stable at baseline. He was not in rapid ventricular response. However, he did have some irritability on telemetry with 4 beats of V-tach. He also had a slightly low potassium and low sodium. He received potassium supplementation and was placed on a fluid restrictions for the sodium and also had 1 g of magnesium which controlled any further ectopy on his heart rate. For his CLL, he is at his baseline. His sugars remained stable on sliding scale insulin and leukocytosis, he was also having which was likely related to his steroids. PHYSICAL EXAMINATION: Day of discharge vital signs are: Blood pressure 151/71 , heart rate 50 to 54, respiratory rate 16, satting at 94% on room air, temperature 97.6. HEENT: The patient is atraumatic and normocephalic. PERRLA with nonicteric sclera. Neck: Supple, nontender. No JVD noted. No carotid bruit auscultated. Lungs: With mild expiratory wheezes at the bases. No rhonchi or rales appreciated. Improved air exchange from the date of his admission. Cardiovascular: S1, S2 are present. Rate is bradycardic. Rhythm is irregular. Abdomen: Soft, nontender, and nondistended. Moderately obese. No organomegaly appreciated. Positive bowel sounds in all 4 quadrants. : Deferred. Musculoskeletal: There is no clubbing and no cyanosis. He does have bipedal edema at admission which has been improved. He has no steady gait. +2 distal pulses palpable. Neurologic: Grossly intact with no focal deficits. He is alert and oriented. Psychiatric: He is cooperative and appropriate. LABORATORY DATA: WBC 10.6; RBC 4.60; hemo globin 13.4; hematocrit 40; and platelets 157. Sodium 132, potassium 4.1, chloride 95, CO2 of 31, BUN 27, creatinine 0.76. GFR is 98.2. Glucose 116, calcium 9.1, magnesium 2.3, bilirubin 1.9, AST 55, ALT 80, alk phos 88. Troponins were 0.04 x3. CRP 8.44. Total protein 6.4 and albumin 4.0. IMAGING: Chest x-ray at admission dated 01/06/18 shows findings suggestive of COPD with no evidence of any acute cardiopulmonary findings. There is no pneumonia or consolidation noted. DIAGNOSES: 1. Shortness of breath and hypoxic respiratory failure, acute, secondary to chronic obstructive pulmonary disease and influenza B. 2. Chronic obstructive pulmonary disease with exacerbation. 3. Elevated troponin. 4. Atrial fibrillation. 5. Benign prostatic hypertrophy. 6. Chronic lymphocytic leukemia, history of. 7. Diabetes mellitus, type 2. 8. Hypertension. 9. Hyponatremia. 10. Electrolyte disturbances. 11. Leukocytosis. PLAN: The patient will be discharged to home in stable condition today. The patient did not require any additional physical therapy or nursing services. The patient states that he has significant other support at home and prefers home as opposed to physical rehab. DISCHARGE MEDICATIONS: Medications at the time of discharge include; 1. Losartan 50 mg p.o. daily. 2. Coumadin 3 mg daily. 3. Metformin 1000 mg 2 times a day. 4. Metoprolol succinate 100 mg p.o. daily. 5. Singular 10 mg daily. 6. Flomax 0.4 mg daily. 7. Albuterol nebulizer 2.5 mg inhaled 3 times a day. 8. Breo Ellipta one puff inhaled daily. 9. Albuterol inhaler two puffs q. 4 hours as needed. 10. Vitamin C 500 mg daily. 11. Multivitamin 1 tablet daily. 12. Vitamin D 5000 units daily. 13. Glucosamine 1500 mg daily. 14. Mucinex 600 mg 2 times a day. 15. Dulera 200/5 two puffs b.i.d. 16. Prednisone 50 mg daily x5 days. 17. Tylenol 650 mg q. 4 hours as needed. FOLLOWUP: The patient was instructed to follow up with Dr. Abel Galicia, his primary care provider in the next week. All new medications were sent to his pharmacy. All questions were answered. The patient stated his understanding of his medications at the time of discharge and his followups. MARA PARSON, MARCI [id number]/[facility] #: [id number] NIXON
== END 2018-01-12 14:15 | disposition home or self-care (01) | DRG 193 ==
LOC: ED 10:13 → MED 14:18 → OBSVTOIN 14:18 → MED 14:27
PROVIDERS: ADMIT Internal Medicine; ATTEND Internal Medicine
DX: J10.1 Influenza due to other identified influenza virus with other respiratory manifestations (principal); J96.01 Acute respiratory failure with hypoxia; I47.2 Ventricular tachycardia; J44.1 Chronic obstructive pulmonary disease with (acute) exacerbation; C91.10 Chronic lymphocytic leukemia of B-cell type not having achieved remission; J45.901 Unspecified asthma with (acute) exacerbation; E87.1 Hypo-osmolality and hyponatremia; I24.8 Other forms of acute ischemic heart disease; I48.91 Unspecified atrial fibrillation; K21.9 Gastro-esophageal reflux disease without esophagitis; I10 Essential (primary) hypertension; G47.33 Obstructive sleep apnea (adult) (pediatric); E11.9 Type 2 diabetes mellitus without complications; E78.5 Hyperlipidemia, unspecified; N40.0 Benign prostatic hyperplasia without lower urinary tract symptoms; M19.90 Unspecified osteoarthritis, unspecified site; D72.829 Elevated white blood cell count, unspecified; T38.0X5A Adverse effect of glucocorticoids and synthetic analogues, initial encounter; Z80.0 Family history of malignant neoplasm of digestive organs; Z88.0 Allergy status to penicillin; Z82.49 Family history of ischemic heart disease and other diseases of the circulatory system; Z87.891 Personal history of nicotine dependence; Z72.89 Other problems related to lifestyle; Z79.01 Long term (current) use of anticoagulants; Z79.84 Long term (current) use of oral hypoglycemic drugs
CPT/HCPCS: 36415; 36600; 71046; 80048; 80053; 82550; 82553; 82803; 83036; 83605; 83735; 83880; 84484; 85025; 85379; 85610; 85730; 86140; 87040; 87070; 87205; 87502; 87899; 93005; 94640; 94760; 99285; A9270-GY; J0456; J1940; J2930; J3475; J7512

== ENCOUNTER 2018-05-31 12:31 | Inpatient (IN) | payer MEDICARE, OTHER ==
--- NOTE | 2018-05-31 12:58 | ED ---
Lower Extremity - HPI Summary HPI Summary: This is Zuri dobbins, documenting for attending Daniel Arce MD. This patient is a 83 year old M presenting to [facility] accompanied by his with a chief complaint of LLE extremity pain, with swelling and an infected wound on the plantar surface of his foot for the past six months that has been progressively worsening, especially in the past 3 weeks. Pain is 3/10 in severity. He states he was on antibiotics that her last took roughly 3 months ago. He denies fever and chills. PMHx of NIDDM; he is currently taking Metformin BID. He is unsure of the dosage and does not check his blood sugar regularly. Report history of cellulitis in left leg previously. - History of Current Complaint Chief Complaint: EDExtremityLower Stated Complaint: LT FOOT PAIN Time Seen by Provider: 05/31/18 12:47 Hx Obtained From: Patient Mechanism Of Injury: Other - diabetic ulcer Onset of Pain: Days - 6 months Onset/Duration: Worse Since - past three weeks Severity Initially: Mild Severity Currently: Moderate Pain Intensity: 3 Pain Scale Used: 0-10 Numeric Timing: Constant Location: Other - diffusely LLE below knee, localized sore to plantar aspect of foot Associated Signs And Symptoms: Positive: Swelling, Redness Alleviating Factor(s): Nothing Related History: Other - NIDDM - Allergies/Home Medications Allergies/Adverse Reactions: Allergies Allergy/AdvReac Type Severity Reaction Status Date / Time nut - unspecified Allergy Swelling Verified 05/31/18 17:52 Of Face,Lips,& Throat Penicillins Allergy Swelling Verified 05/31/18 12:37 Home Medications: Home Medications Albuterol HFA INHALER* [Ventolin HFA Inhaler*] 2 puff INH Q6H PRN 05/31/18 [ History Confirmed 05/31/18] Ascorbic Acid TAB* [Vitamin C TAB*] 250 mg PO DAILY 05/31/18 [History Confirmed 05/31/18] Cholecalciferol TAB* [Vitamin D TAB*] 5,000 unit PO DAILY 05/31/18 [History Confirmed 05/31/18] Fluticasone/Vilanterol MDI(NF) [Breo Ellipta MDI 200/25(NF)] 1 inh IN DAILY [History Confirmed 05/31/18] Furosemide TAB* [Lasix TAB*] 20 mg PO DAILY 05/31/18 [History Confirmed 05/31/18 ] Glucosamine CAP (NF) 3 cap PO DAILY 05/31/18 [History Confirmed 05/31/18] Ipratropium 0.5MG/2.5ML NEB* [Atrovent 0.5 MG NEB.TIM*] 0.5 mg INH BID PRN 05/31 [History Confirmed 05/31/18] Losartan TAB* [Cozaar TAB*] 50 mg PO QAM 05/31/18 [History Confirmed 05/31/18] Metoprolol Succinate XL TAB* [Toprol XL TAB*] 100 mg PO DAILY 05/31/18 [History Confirmed 05/31/18] Montelukast Sodium TAB* [Singulair TAB*] 10 mg PO DAILY 05/31/18 [History Confirmed 05/31/18] Multivitamins/Minerals TAB* [Theragran/minerals TAB*] 1 tab PO DAILY 05/31/18 [ History Confirmed 05/31/18] Tamsulosin CAP* [Flomax CAP*] 0.4 mg PO DAILY 05/31/18 [History Confirmed ] Warfarin TAB(*) [Coumadin TAB(*)] 2.5 mg PO DAILY 05/31/18 [History Confirmed ] metFORMIN* [Glucophage 1000 MG TAB *] 1,000 mg PO BID 05/31/18 [History Confirmed 05/31/18] PMH/Surg Hx/FS Hx/Imm Hx Endocrine/Hematology History: Reports: Hx Diabetes - type II Denies: Hx Thyroid Disease Cardiovascular History: Reports: Hx Hypertension Respiratory History: Reports: Hx Asthma Denies: Hx Chronic Obstructive Pulmonary Disease (COPD) GI History: Denies: Hx Ulcer Sensory History: Reports: Hx Contacts or Glasses Denies: Hx Hearing Aid Opthamlomology History: Reports: Hx Contacts or Glasses - Cancer History Cancer Type, 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 - Surgical History Surgery Procedure, Year, and Place: Appendectomy, nose surgery, shoulder torn rotator cuff repair Infectious Disease History: No Infectious Disease History: Denies: Hx Hepatitis, Hx Human Immunodeficiency Virus (HIV), Traveled Outside the [place] in Last 30 Days - Family History Known Family History: Positive: Hypertension, Other - Cancer - Social History Alcohol Use: Occasionally Alcohol Amount: LAST DRINK TUESDAY NIGHT Substance Use Type: Reports: None Smoking Status (MU): Former Smoker Review of Systems Negative: Fever, Chills Positive: Myalgia - LLE, Edema - LLE below the knee Positive: Other - redness to LLE below leg, sore to left foot (plantar aspect of ) All Other Systems Reviewed And Are Negative: Yes Physical Exam - Summary Physical Exam Summary: Appearance: Well-appearing, Well-nourished Skin: Warm Eyes: Normal ENT: Normal Neck: Supple, nontender Respiratory: Clear to auscultation Cardiovascular: Regular rate, regular rhythm. Normal S1, S2. Abdomen: Soft, nontender Musculoskeletal: Strength/ROM Intact Left foot plantar aspect with diabetic ulcer 1x1.5 cm that is swollen and tender with small black center surrounded by warmth and swelling with mild purulent discharge. Dorsalis pedis pulse 2+ on left. Left foot swollen and tender up right below the left knee. Cellulitis in LLE and left foot. Neurological: Normal, A&Ox3 Psychiatric: Normal General: No acute distress Triage Information Reviewed: Yes Vital Signs On Initial Exam: Initial Vitals Temp Pulse Resp BP Pulse Ox 97.9 F 60 16 138/74 99 05/31/18 12:35 05/31/18 12:35 05/31/18 12:35 05/31/18 12:35 05/31/18 12:35 Vital Signs Reviewed: Yes Diagnostics - Vital Signs Vital Signs Temp Pulse Resp BP Pulse Ox 05/31/18 12:35 97.9 F 60 16 138/74 99 - Laboratory Result Diagrams: 05/31/18 13:18 05/31/18 13:18 Lab Statement: Any lab studies that have been ordered have been reviewed, and results considered in the medical decision making process. Lower Extremity Course/Dx - Course Assessment/Plan: LLE cellulitis with infected diabetic foot ulcer-Pt will be admitted for IV abx tx due to failed outpt abx therapy - Diagnoses Provider Diagnoses: Diabetic ulcer of left foot, Cellulitis of left lower extremity - Physician Notifications Discussed Care Of Patient With: Chad Barker - hospitalist Time Discussed With Above Provider: 12:45 Instructed by Provider To: Admit As Inpatient Discharge - Sign-Out/Discharge Documenting (check all that apply): Patient Departure - Discharge Plan Condition: Stable Disposition: ADMITTED TO [facility] - Billing Disposition and Condition Condition: STABLE Disposition: Admitted to [facility]
[2018-05-31 13:28] LABS: ABS Basophils 0 10^3/ul (0-0.2); ABS Eosinophils 0 10^3/ul (0-0.6); ABS Lymphocytes 0.7 10^3/ul (1.0-4.8); ABS Neutrophils 8.2 10^3/ul (1.5-7.7); ABS Nucleated RBC 0 10^3/ul; Eosinophil % 0.5 % (0-6); Hematocrit 37 % (42-52); Hemoglobin 12.4 g/dl (14.0-18.0); Lymphocyte % 6.9 % (25-47); Mean Corpuscular HGB Conc 34 g/dl (31-36); Mean Corpuscular Hemoglobin 30 pg (27-31); Mean Corpuscular Volume 90 fL (80-94); Mean Platelet Volume 8.1 um3 (7.4-10.4); Nucleated Red Blood Cells % 0; Platelet Count 158 10^3/ul (150-450); Red Blood Count 4.08 10^6/ul (4.00-5.40); Red Cell Distribution Width 15 % (10.5-15); White Blood Count 9.9 10^3/ul (3.5-10.8)
[2018-05-31 13:49] LABS: EGFR Non-African American 83.8 (>60)
[2018-05-31] MEDS ORDERED: Al Hydrox/Mg Hydrox/Simet LIQ* 30 ML UDC PO PRN (15:20)
[2018-05-31] MEDS ORDERED: Ipratropium 0.5MG/2.5ML NEB* 0.5 MG/2.5 ML NEB.SOLN INH PRN (15:26)
[2018-05-31] MEDS ORDERED: Albuterol HFA INHALER* 8 gm MDI INH PRN (15:26)
[2018-05-31] MEDS ORDERED: Vancomycin(*) 1,000 MG VIAL IVPB SCH (16:00)
[2018-05-31] MEDS ORDERED: metFORMIN* 1,000 MG TAB PO SCH (17:00)
[2018-05-31] MEDS ORDERED: Warfarin TAB(*) 2.5 MG PO SCH (17:00)
[2018-05-31] MEDS ORDERED: Vancomycin per Pharmacy* NOTE FOLLOW UP PRN (17:25)
[2018-05-31] MEDS: metroNIDAZOLE IV 500 MG/100ML* 500 MG/100 ML BAG IVPB SCH (17:48)
[2018-05-31] MEDS: Levofloxacin 750 MG IVPREMIX(* 750 MG/150 ML BAG IVPB SCH (17:48)
[2018-05-31] MEDS ORDERED: Vancomycin 1500 MG IV - x ONCE IVPB ONE ×2 (18:00)
[2018-05-31 18:17] LABS: Urine Appearance Clear; Urine Blood Negative (Negative); Urine Color Yellow; Urine Ketones Trace (Negative); Urine Protein Negative (Negative); Urine Specific Gravity 1.017 (1.010-1.030); Urine Urobilinogen Negative (Negative)
[2018-05-31] MEDS ORDERED: Dextrose 50% Syringe 50 ML* 25 GM/50 ML SYRINGE IV PUSH PRN (19:04)
[2018-05-31] MEDS ORDERED: Magnesium Sulfate 2 GM IV* 2 GM/50 ML BAG IVPB ONE (19:10)
[2018-05-31] MEDS: Metoprolol Succinate XL TAB* 100 MG PO SCH (19:32)
[2018-05-31] MEDS ORDERED: NS 0.9% 100 ML* 100 ML ONE (19:53)
[2018-05-31] MEDS ORDERED: Magnesium Sulfate IV* 2 GM in NS 0.9% 100 ML* 100 ML IVPB ONE (20:00)
--- NOTE | 2018-05-31 20:21 | HP ---
CC: Dr. Galicia * HISTORY AND PHYSICAL: DATE OF ADMISSION: 05/31/18 PROVIDER: Chloe Mckinney NP PRIMARY CARE PROVIDER: Dr. Galicia. ATTENDING PHYSICIAN WHILE IN THE HOSPITAL: Dr. Chad Barker * (dictated by Chloe Mckinney NP). CHIEF COMPLAINT: Left foot pain and redness. HISTORY OF PRESENT ILLNESS: Mr. Redmond is an 83-year-old male, who carries a past medical history significant for AFib, obstructive sleep apnea, diabetes, asthma, hypertension, hyperlipidemia, who presented to the emergency room today for increased pain and redness, swelling to his left lower extremity. The patient states approximately 5 weeks ago, he developed a blister on the plantar lateral aspect of his left foot and his foot was swollen at that time. The patient reports that over the past 2 to 3 days, he has developed redness in the foot along with swelling. The plantar aspect of the left foot has an open ulceration with serosanguineous drainage. Due to the increased redness and swelling, the patient presented to the emergency room for further evaluation. The patient denies any fever, chills. Denies any nausea, vomiting, or diarrhea. Denies any abdominal pain. The patient reports that he started taking doxycycline at home with no improvement. Given the increased redness and swelling to his left lower extremity, we were asked to see and evaluate him for management of his cellulitis. PAST MEDICAL HISTORY: Significant for: 1. Atrial fibrillation, on chronic anticoagulation. 2. Obstructive sleep apnea. He is noncompliant, does not wear his mask. 3. GERD. 4. BPH. 5. Hypertension. 6. Hyperlipidemia. 7. Arthritis. 8. Asthma. 9. Diabetes. PAST SURGICAL HISTORY: 1. The patient had a rotator cuff repair. 2. Appendectomy. MEDICATIONS: Home medications include: 1. Glucosamine 1500 mg p.o. daily. 2. Vitamin D 5000 units p.o. daily. 3. Multivitamin 1 tablet p.o. daily. 4. Vitamin C 500 mg p.o. daily. 5. Albuterol inhaler 2 puffs q.6 hours as needed for shortness of breath. 6. Atrovent nebulizer 0.5 mg b.i.d. as needed. 7. Breo 1 inhaled daily. 8. Singulair 10 mg p.o. daily. 9. Metoprolol 100 mg p.o. daily. 10. Losartan 50 mg p.o. q.a.m. 11. Flomax 0.4 mg p.o. daily. 12. Furosemide 20 mg p.o. daily. 13. Metformin 1000 mg p.o. daily. 14. Warfarin 2.5 mg p.o. daily. ALLERGIES TO MEDICATIONS: He has allergy to PENICILLIN, which causes swelling. FAMILY HISTORY: Mother with a history of heart disease. Father with a history of pancreatic cancer. SOCIAL HISTORY: The patient is a former smoker, quit smoking several years ago. He does report occasional alcohol use. Denies any illicit drug use. Surrogate decision maker in the event he is unable to make his own decisions is his , Lori Redmond. Her phone number is [phone]. He is a full code. REVIEW OF SYSTEMS: There was no documented fever. He denies any significant weight change. There was no double vision. Denies any ear discharge. Denies any rhinorrhea. Denies sore throat. He denies any cough or congestion, hemoptysis. He does report chronic shortness of breath. He states that he is currently waiting to have a TAVR placed. Denies any nausea, vomiting, diarrhea. Denies any abdominal pain. Denies any hematuria or dysuria. Denies any focal weakness or sensory loss. Denies any visual complaints. Denies any dysphagia. Denies any arthralgias or myalgias. Does report open ulceration to the left lateral plantar aspect of the left foot and left lower leg redness, swelling and redness and swelling to his left foot. Denies any depression or anxiety. PHYSICAL EXAMINATION GENERAL: At this time, Mr. Redmond is an 83-year-old male. He is sitting on the stretcher in the emergency room. He does not appear to be in any acute distress. VITAL SIGNS: As follows: Temperature was 97.9, heart rate was 60, respirations 16, O2 saturation 99%, blood pressure 138/74. HEENT: Head is atraumatic, normocephalic. Eyes: EOMs are intact. Sclerae are anicteric and not pale. Oral mucosa appears to be moist. NECK: Supple. LUNGS: Clear to auscultation bilaterally. They are diminished in the bases. There are no wheezes, rales, or rhonchi. HEART: S1, S2. Irregular rate. There is a murmur. No rubs or gallops. ABDOMEN: Soft, rounded, nontender. Bowel sounds are present x4. EXTREMITIES: Pulses are +2 throughout. He does have swelling to the left lower leg with redness noted. Strength is 5/5 to all 4 extremities. Pedal pulses are +2 bilaterally. NEUROLOGIC: He is awake, alert, and oriented x3. Speech is clear. There are no gross focal deficits. SKIN: His left lower leg with erythema and swelling noted from the foot to just below the knee. There is no calf tenderness. He does have an open ulceration to the plantar aspect of the left lateral foot with a small amount of purulent drainage. Left lower extremity is warm to the touch. He does have mild brownish discoloration noted to the right lower extremity with some scabbed areas noted to the right epstein. DIAGNOSTIC STUDIES/LAB DATA: WBCs were 9.9, RBCs 4.08, hemoglobin was 12.4, hematocrit was 37, platelet count was 158. Sodium 131, potassium 4.5, chloride 98, carbon dioxide was 24, anion gap was 9, BUN was 23, creatinine 0.87, GFR was 83.8, glucose 112, lactic acid was 1.4, calcium 9.2. ASTs were 29, ALTs were 22, alkaline phos was 87. C-reactive protein was 33.70. ESR is pending. INR is pending. MRI of the left lower extremity, report is currently pending. ASSESSMENT AND PLAN: Mr. Redmond is an 83-year-old male that presented to the emergency room complaining of left lower extremity erythema and swelling that has progressively worsened over the past 2 to 3 days. The patient failed outpatient doxycycline, so came to the emergency room for further evaluation and treatment. He will be admitted under inpatient for: 1. Diabetic foot ulcer with cellulitis. We will obtain blood cultures. He will be placed on Levaquin, Flagyl, and vancomycin. I did get an MRI of his left lower extremity, which results are currently pending. We will continue to monitor his vital signs for any fever. We will get a wound culture of his left foot prior to starting any antibiotics. 2. Atrial fibrillation. His rate is currently controlled. I am going to continue him on his Lopressor and Cozaar and warfarin at 2.5 mg daily. We will trend his INR daily. 3. Benign prostatic hyperplasia. We will continue him on Flomax. 4. Hypertension. We will continue him on his Lasix, Cozaar, and metoprolol. 5. Diabetes. I will place on him on a lispro sliding scale. We will monitor his fingersticks a.c. and h.s. and provide coverage. 6. DVT prophylaxis. He is on warfarin. He currently has an INR that is pending. We will continue him on warfarin at this time. 7. Code status. He is a full code. 8. Fluids, electrolytes, and nutrition: He will be placed on a heart-healthy diet. TIME SPENT: Time spent on this admission was approximately 60 minutes, greater than half of that time was spent [id number] with the patient obtaining my history and physical, the other half of the time was spent going over my plan of care and implementing my plan of care. I have discussed this with my attending, Dr. Chad Barker, and he is in agreement with my plan. CHLOE MCKINNEY, MARINA MANAGER [id number]/[facility] #: [id number] [place]
[2018-05-31] MEDS: Insulin LISPRO* 1 UNITS UNIT SUBCUT SCH (21:53)
[2018-05-31] MEDS ORDERED: Heparin VIAL(*) 5000 UNITS/ML VIAL (FIVE THOUSAND) SUBCUT SCH (22:00)
[2018-06-01] MEDS: metroNIDAZOLE IV 500 MG/100ML* 500 MG/100 ML BAG IVPB SCH ×3 (02:07→16:19)
[2018-06-01] MEDS: Vancomycin(*) 1,000 MG in NS 0.9% 250 ML* 250 ML IVPB SCH ×3 (05:11→21:06)
[2018-06-01] MEDS: PTO:Fluticasone/Vilanterol MDI(NF) 200/25 MDI INH SCH (07:05)
[2018-06-01 07:19] LABS: ABS Basophils 0 10^3/ul (0-0.2); ABS Eosinophils 0.1 10^3/ul (0-0.6); ABS Monocytes 1.2 10^3/ul (0-0.8); ABS Neutrophils 7.9 10^3/ul (1.5-7.7); ABS Nucleated RBC 0 10^3/ul; Eosinophil % 0.6 % (0-6); Hematocrit 36 % (42-52); Hemoglobin 12.4 g/dl (14.0-18.0); Mean Corpuscular HGB Conc 34 g/dl (31-36); Mean Corpuscular Hemoglobin 31 pg (27-31); Mean Corpuscular Volume 90 fL (80-94); Mean Platelet Volume 8.3 um3 (7.4-10.4); Nucleated Red Blood Cells % 0; Platelet Count 150 10^3/ul (150-450); Red Blood Count 4.01 10^6/ul (4.00-5.40); Red Cell Distribution Width 16 % (10.5-15); White Blood Count 10.2 10^3/ul (3.5-10.8)
[2018-06-01 07:31] LABS: EGFR Non-African American 84.9 (>60); INR 2.33 (0.77-1.02)
[2018-06-01] MEDS: Losartan TAB* 25 MG PO SCH (07:45)
[2018-06-01] MEDS: Insulin LISPRO* 1 UNITS UNIT SUBCUT SCH ×4 (07:45→21:43)
[2018-06-01] MEDS: Cholecalciferol TAB* 1000 UNITS PO SCH (07:45)
[2018-06-01] MEDS: Furosemide TAB* 20 MG PO SCH (07:45)
[2018-06-01] MEDS: Montelukast Sodium TAB* 10 MG PO SCH (07:46)
[2018-06-01] MEDS: Tamsulosin CAP* 0.4 MG PO SCH (07:46)
[2018-06-01] MEDS: Ascorbic Acid TAB* 500 MG PO SCH (07:46)
[2018-06-01] MEDS: Multivitamins/Minerals TAB PO SCH (07:46)
[2018-06-01] MEDS ORDERED: Metoprolol Succinate XL TAB* 100 MG PO SCH (09:00)
--- NOTE | 2018-06-01 10:38 | RAD ---
Indication: Swollen and infected wound plantar aspect at level of fifth toe LEFT foot for 6 months. Diabetic. Comparison: No relevant prior exams available on the [facility] for comparison. Technique: Xdynia Lander 1.5 Theresa [id number] with GEM suite. Noncontrast MRI LEFT forefoot. Report: Motion artifact degrades image quality. There is no suspicious bone marrow edema at the fifth digit or adjacent forefoot to raise concern for osteomyelitis. Second through fifth toe hammertoe deformities. Hallux valgus deformity at the first metatarsal phalangeal joint. There is bone marrow edema flanking multiple joint spaces most consistent with sequela of degeneration of the hyaline articular cartilage most marked at the articulation between the head of the first metatarsal and the lateral sesamoid bone. Superficial soft tissue ulcer at the lateral margin of the fifth toe at the level of the metatarsal phalangeal joint. Extensive superficial and deep soft tissue edema most marked over the dorsum of the foot. No loculated soft tissue plane fluid collection evident. IMPRESSION: #. No significant bone marrow signal abnormality at the fifth metatarsal or phalanges to raise concern for osteomyelitis. #. Superficial soft tissue ulcer at the lateral margin of the fifth toe at the level of the metatarsal phalangeal joint. Extensive superficial and deep soft tissue edema without evidence for a loculated abscess collection.
[2018-06-01] MEDS: Metoprolol Succinate XL TAB* 100 MG PO SCH (16:19)
[2018-06-01] MEDS: Levofloxacin 750 MG IVPREMIX(* 750 MG/150 ML BAG IVPB SCH (17:50)
[2018-06-01] MEDS ORDERED: Vancomycin Trough Check NOTE FOLLOW UP ONE (19:00)
--- NOTE | 2018-06-01 20:25 | PN ---
Subjective Date of Service: 06/01/18 Interval History: c/o swelling to left lower leg, improving slowly, some drainage to the left plantar wound of the left foot. Denies chest pain. Denies report shortness of breath that is chronic for him. Family History: Unchanged from Admission Social History: Unchanged from Admission Past Medical History: Unchanged from Admission Objective Active Medications: Acetaminophen (Tylenol Tab*) 650 mg PO Q4H PRN PRN Reason: FEVER/PAIN Al Hydrox/Mg Hydrox/Simethicone (Maalox Plus*) 30 ml PO Q6H PRN PRN Reason: INDIGESTION Albuterol (Ventolin Hfa Inhaler*) 2 puff INH Q6H PRN PRN Reason: SHORTNESS OF BREATH Ascorbic Acid (Vitamin C Tab*) 250 mg PO DAILY [facility] Last Admin: 06/01/18 07:46 Dose: 250 mg Cholecalciferol (Vitamin D Tab*) 5,000 units PO DAILY [facility] Last Admin: 06/01/18 07:45 Dose: 5,000 units Dextrose (D50w Syringe 50 Ml*) 12.5 gm IV PUSH .FOR FS < 60 - SS PRN PRN Reason: FS < 60 Fluticasone/Vilanterol (Breo Ellipta Mdi 200/25(Nf)) 1 puff INH DAILY [facility] Last Admin: 06/01/18 07:05 Dose: Not Given Furosemide (Lasix Tab*) 20 mg PO DAILY [facility] Last Admin: 06/01/18 07:45 Dose: 20 mg Levofloxacin/Dextrose (Levaquin 750 Mg Ivpremix(*)) 750 mg in 150 mls @ 100 mls /hr IVPB Q24H [facility] Last Admin: 06/01/18 17:50 Dose: 100 mls/hr Metronidazole/Sodium Chloride (Flagyl 500 Mg Ivpb*) 500 mg in 100 mls @ 100 mls /hr IVPB Q8H [facility] Last Admin: 06/01/18 16:19 Dose: 100 mls/hr Vancomycin HCl 1,000 mg/ (Sodium Chloride) 250 mls @ 166.667 mls/hr IVPB Q8H [facility] Last Admin: 06/01/18 12:03 Dose: 166.667 mls/hr Insulin Human Lispro (Humalog*) [address] [facility]; Protocol Last Admin: 06/01/18 16:18 Dose: Not Given Ipratropium [place] (Atrovent 0.5 Mg Neb.Stefani*) 0.5 mg INH BID PRN PRN Reason: SOB/WHEEZING Losartan Potassium (Cozaar Tab*) 50 mg PO QAM [facility] Last Admin: 06/01/18 07:45 Dose: 50 mg Metoprolol Succinate (Toprol Xl Tab*) 50 mg PO DAILY [facility] Montelukast Sodium (Singulair Tab*) 10 mg PO DAILY [facility] Last Admin: 06/01/18 07:46 Dose: 10 mg Multivitamins/Minerals (Theragran/Minerals Tab*) 1 tab PO DAILY [facility] Last Admin: 06/01/18 07:46 Dose: 1 tab Pharmacy Consult (Vancomycin Per Pharmacy*) 1 note FOLLOW UP . PRN PRN Reason: PER PROTOCOL Tamsulosin HCl (Flomax Cap*) 0.4 mg PO DAILY [facility] Last Admin: 06/01/18 07:46 Dose: 0.4 mg Vital Signs - 8 hr 06/01/18 15:20 Temperature 97.8 F Pulse Rate 48 Respiratory 18 Rate Blood Pressure 135/64 (mmHg) O2 Sat by Pulse 97 Oximetry Oxygen Devices in Use Now: None Appearance: appears comfortable resting in bed Eyes: No Scleral Icterus Ears/Nose/Mouth/Throat: Clear Oropharnyx, Mucous Membranes Moist Neck: NL Appearance and Movements; NL JVP, Trachea Midline Respiratory: Symmetrical Chest Expansion and Respiratory Effort, Clear to Auscultation Cardiovascular: NL Sounds; No Murmurs; No JVD Abdominal: NL Sounds; No Tenderness; No Distention Extremities: No Clubbing, Cyanosis, - - left lower leg with edema Skin: - - left lateral plantar aspect of the foot with small open area, with redness and purlent drainage Neurological: Alert and Oriented x 3 Nutrition: Taking PO's Result Diagrams: 06/01/18 06:34 06/01/18 06:34 Microbiology and Other Data: Microbiology 05/31/18 16:50 Aerobic Blood Culture - Preliminary Blood Venous No Growth Day 1 Anaerobic Blood Culture - Preliminary No Growth Day 1 05/31/18 16:37 Aerobic Blood Culture - Preliminary Blood Venous No Growth Day 1 Anaerobic Blood Culture - Preliminary No Growth Day 1 05/31/18 17:56 Skin and Soft Tissue MRSA/MSSA (PCR - Final Foot Left Mrsa Negative S.aureus Positive Gram Stain - Final Wound Culture - Preliminary Staphylococcus Aureus Assess/Plan/Problems-Billing Assessment: Mr. Redmond is an 83-year-old male, who carries a past medical history significant for AFib, obstructive sleep apnea, diabetes, asthma, hypertension, hyperlipidemia, who presented to the emergency room today for increased pain and redness, swelling to his left lower extremity. The patient states approximately 5 weeks ago, he developed a blister on the plantar lateral aspect of his left foot and his foot was swollen at that time. The patient reports that over the past 2 to 3 days, he has developed redness in the foot along with swelling. - Patient Problems (1) Cellulitis Current Visit: Yes Status: Acute Code(s): L03.90 - CELLULITIS, UNSPECIFIED SNOMED Code(s): 015529563 Comment: - Patient is afebrile - redness to left foot and left lower leg, open area to plantar aspect of the left foot. - will continue vancomycin, flagyl, levaquin - wound culture is negative for MRSA, and MSSA, would with purlent drainage today- repeat cultures taken and pending at this time (2) Atrial fibrillation Current Visit: No Status: Acute Code(s): I48.91 - UNSPECIFIED ATRIAL FIBRILLATION SNOMED Code(s): 56106146 Comment: - Rate controlled on metoprolol and Cozaar - - frequent PVC's improved after mag infusion - Stable- will continue to monitor on telemetry - continue coumadin at 3 mg (3) Asthma Current Visit: No Status: Acute Code(s): J45.909 - UNSPECIFIED ASTHMA, UNCOMPLICATED SNOMED Code(s): 157967321 Comment: stable Will continue home medications (4) BPH (benign prostatic hyperplasia) Current Visit: No Status: Acute Code(s): N40.0 - BENIGN PROSTATIC HYPERPLASIA WITHOUT LOWER URINRY TRACT SYMP SNOMED Code(s): 501361005 Comment: - Continue Flomax (5) Diabetes Current Visit: No Status: Acute Code(s): E11.9 - TYPE 2 DIABETES MELLITUS WITHOUT COMPLICATIONS SNOMED Code(s): 46721845 Comment: - Continue lispro SSI while inpatient - Fingersticks - Blood sugar 93-123 (6) HTN (hypertension) Current Visit: No Status: Acute Code(s): I10 - ESSENTIAL (PRIMARY) HYPERTENSION SNOMED Code(s): 95938525 Comment: - Normotensive. Continue metoprolol, cozaar and lasix (7) Aortic stenosis Current Visit: Yes Status: Acute Code(s): I35.0 - NONRHEUMATIC AORTIC (VALVE ) STENOSIS SNOMED Code(s): 74121641 Comment: Patient is currently being workup as an outpatient for Taver valve placement - pending angiogram for tuesday (8) Hypomagnesemia Current Visit: Yes Status: Acute Code(s): E83.42 - HYPOMAGNESEMIA SNOMED Code(s): 662808703 Comment: Magnesium 1.9 today given 2 grams of magnesium for magnesium of 1.7 (9) DVT prophylaxis Current Visit: No Status: Acute Code(s): NNI6693 - SNOMED Code(s): 179289683 Comment: Warfarin, Therapeutic. INR 2.33 (10) Full code status Current Visit: No Status: Acute Code(s): Z78.9 - OTHER SPECIFIED HEALTH STATUS SNOMED Code(s): 870227075 Status and Disposition: inpatient
[2018-06-01] MEDS: Acetaminophen TAB* 325 MG PO PRN (21:42)
[2018-06-02] MEDS: metroNIDAZOLE IV 500 MG/100ML* 500 MG/100 ML BAG IVPB SCH ×3 (02:09→17:09)
[2018-06-02] MEDS: PTO:Fluticasone/Vilanterol MDI(NF) 200/25 MDI INH SCH ×2 (07:45→21:07)
[2018-06-02] MEDS: Ascorbic Acid TAB* 500 MG PO SCH (09:01)
[2018-06-02] MEDS: Cholecalciferol TAB* 1000 UNITS PO SCH (09:03)
[2018-06-02 09:04] LABS: EGFR Non-African American 83.8 (>60)
[2018-06-02] MEDS: Furosemide TAB* 20 MG PO SCH (09:04)
[2018-06-02] MEDS: Metoprolol Succinate XL TAB* 50 MG PO SCH (09:04)
[2018-06-02] MEDS: Losartan TAB* 25 MG PO SCH (09:05)
[2018-06-02] MEDS: Tamsulosin CAP* 0.4 MG PO SCH (09:05)
[2018-06-02] MEDS: Montelukast Sodium TAB* 10 MG PO SCH (09:07)
[2018-06-02 09:12] LABS: INR 2.16 (0.77-1.02)
[2018-06-02] MEDS: Multivitamins/Minerals TAB PO SCH (09:26)
[2018-06-02] MEDS: Insulin LISPRO* 1 UNITS UNIT SUBCUT SCH ×4 (09:26→20:23)
[2018-06-02] MEDS ORDERED: Warfarin TAB(*) 2.5 MG PO SCH (17:00)
--- NOTE | 2018-06-02 18:53 | PN ---
Subjective Date of Service: 06/02/18 Interval History: no complaints, continues to have ectopy on the monitor, asymptomatic. Magnesium and potassium within normal limits. Denies chest pain or shortness of breath. Denies abd pain, n/v/d. continues to have purulent drainage from the bottom of the left foot when left lateral foot is palpated. Family History: Unchanged from Admission Social History: Unchanged from Admission Past Medical History: Unchanged from Admission Objective Active Medications: Acetaminophen (Tylenol Tab*) 650 mg PO Q4H PRN PRN Reason: FEVER/PAIN Last Admin: 06/01/18 21:42 Dose: 650 mg Al Hydrox/Mg Hydrox/Simethicone (Maalox Plus*) 30 ml PO Q6H PRN PRN Reason: INDIGESTION Albuterol (Ventolin Hfa Inhaler*) 2 puff INH Q6H PRN PRN Reason: SHORTNESS OF BREATH Ascorbic Acid (Vitamin C Tab*) 250 mg PO DAILY [facility] Last Admin: 06/02/18 09:01 Dose: 250 mg Cholecalciferol (Vitamin D Tab*) 5,000 units PO DAILY [facility] Last Admin: 06/02/18 09:03 Dose: 5,000 units Dextrose (D50w Syringe 50 Ml*) 12.5 gm IV PUSH .FOR FS < 60 - SS PRN PRN Reason: FS < 60 Fluticasone/Vilanterol (Breo Ellipta Mdi 200/25(Nf)) 1 puff INH QAM [facility] Furosemide (Lasix Tab*) 20 mg PO DAILY [facility] Last Admin: 06/02/18 09:04 Dose: 20 mg Levofloxacin/Dextrose (Levaquin 750 Mg Ivpremix(*)) 750 mg in 150 mls @ 100 mls /hr IVPB Q24H [facility] Last Admin: 06/01/18 17:50 Dose: 100 mls/hr Metronidazole/Sodium Chloride (Flagyl 500 Mg Ivpb*) 500 mg in 100 mls @ 100 mls /hr IVPB Q8H [facility] Last Admin: 06/02/18 17:09 Dose: 100 mls/hr Insulin Human Lispro (Humalog*) 0 units SUBCUT ACHS [facility]; Protocol Last Admin: 06/02/18 17:14 Dose: Not Given Ipratropium [place] (Atrovent 0.5 Mg Neb.Stefani*) 0.5 mg INH BID PRN PRN Reason: SOB/WHEEZING Losartan Potassium (Cozaar Tab*) 50 mg PO QAM [facility] Last Admin: 06/02/18 09:05 Dose: 50 mg Metoprolol Succinate (Toprol Xl Tab*) 50 mg PO DAILY [facility] Last Admin: 06/02/18 09:04 Dose: 50 mg Montelukast Sodium (Singulair Tab*) 10 mg PO DAILY [facility] Last Admin: 06/02/18 09:07 Dose: 10 mg Multivitamins/Minerals (Theragran/Minerals Tab*) 1 tab PO DAILY [facility] Last Admin: 06/02/18 09:26 Dose: 1 tab Tamsulosin HCl (Flomax Cap*) 0.4 mg PO DAILY [facility] Last Admin: 06/02/18 09:05 Dose: 0.4 mg Warfarin Sodium (Coumadin Tab(*)) 2.5 mg PO DAILY@1700 [facility]; Protocol Last Admin: 06/02/18 17:10 Dose: 2.5 mg Vital Signs - 8 hr 06/02/18 06/02/18 11:13 15:52 Temperature 97.6 F 98.7 F Pulse Rate 95 45 Respiratory 22 26 Rate Blood Pressure 136/60 135/61 (mmHg) O2 Sat by Pulse 96 98 Oximetry Oxygen Devices in Use Now: None Appearance: appear comfortable resting in bed. no acute distress Ears/Nose/Mouth/Throat: NL Teeth, Lips, Gums, Mucous Membranes Moist Neck: NL Appearance and Movements; NL JVP, Trachea Midline Respiratory: Symmetrical Chest Expansion and Respiratory Effort, Clear to Auscultation Cardiovascular: NL Sounds; No Murmurs; No JVD, No Edema Abdominal: NL Sounds; No Tenderness; No Distention Extremities: No Edema, No Clubbing, Cyanosis Skin: No Rash or Ulcers Neurological: Alert and Oriented x 3 Nutrition: Taking PO's Result Diagrams: 06/01/18 06:34 06/02/18 08:39 Microbiology and Other Data: Microbiology 05/31/18 16:50 Aerobic Blood Culture - Preliminary Blood Venous No Growth Day 1 Anaerobic Blood Culture - Preliminary No Growth Day 1 05/31/18 16:37 Aerobic Blood Culture - Preliminary Blood Venous No Growth Day 1 Anaerobic Blood Culture - Preliminary No Growth Day 1 05/31/18 17:56 Skin and Soft Tissue MRSA/MSSA (PCR - Final Foot Left Mrsa Negative S.aureus Positive Gram Stain - Final Wound Culture - Preliminary Staphylococcus Aureus Assess/Plan/Problems-Billing Assessment: Mr. Redmond is an 83-year-old male, who carries a past medical history significant for AFib, obstructive sleep apnea, diabetes, asthma, hypertension, hyperlipidemia, who presented to the emergency room today for increased pain and redness, swelling to his left lower extremity. The patient states approximately 5 weeks ago, he developed a blister on the plantar lateral aspect of his left foot and his foot was swollen at that time. The patient reports that over the past 2 to 3 days, he has developed redness in the foot along with swelling. - Patient Problems (1) Cellulitis Current Visit: Yes Status: Acute Code(s): L03.90 - CELLULITIS, UNSPECIFIED SNOMED Code(s): 304085670 Comment: - Patient remains afebrile - redness improving to left foot and left lower leg, open area to plantar aspect of the left foot. - will continue vancomycin, flagyl, levaquin - wound culture is negative for MRSA, positive MSSA, would with purlent drainage today from the plantar aspect of the left foot- repeat cultures taken yesterday -negative for MRSA , positive for MSSA, sens. pending - anaerobic culture is pending - Ortho consulted (2) Atrial fibrillation Current Visit: No Status: Acute Code(s): I48.91 - UNSPECIFIED ATRIAL FIBRILLATION SNOMED Code(s): 09084564 Comment: - Rate controlled on metoprolol and Cozaar - - frequent PVC's - asymptomatic improved - Stable- will continue to monitor on telemetry - continue coumadin at 2.5 mg (3) Asthma Current Visit: No Status: Acute Code(s): J45.909 - UNSPECIFIED ASTHMA, UNCOMPLICATED SNOMED Code(s): 022527023 Comment: stable Will continue home medications (4) BPH (benign prostatic hyperplasia) Current Visit: No Status: Acute Code(s): N40.0 - BENIGN PROSTATIC HYPERPLASIA WITHOUT LOWER URINRY TRACT SYMP SNOMED Code(s): 582757847 Comment: - Continue Flomax (5) Diabetes Current Visit: No Status: Acute Code(s): E11.9 - TYPE 2 DIABETES MELLITUS WITHOUT COMPLICATIONS SNOMED Code(s): 20060024 Comment: - Continue lispro SSI while inpatient - Fingersticks - Blood sugar 104-131 (6) HTN (hypertension) Current Visit: No Status: Acute Code(s): I10 - ESSENTIAL (PRIMARY) HYPERTENSION SNOMED Code(s): 41351838 Comment: - Normotensive. Continue metoprolol, cozaar and lasix (7) Aortic stenosis Current Visit: Yes Status: Acute Code(s): I35.0 - NONRHEUMATIC AORTIC (VALVE ) STENOSIS SNOMED Code(s): 28305611 Comment: Patient is currently being workup as an outpatient for Taver valve placement - angiogram for tuesday has been cancelled (8) Hypomagnesemia Current Visit: Yes Status: Acute Code(s): E83.42 - HYPOMAGNESEMIA SNOMED Code(s): 219537477 Comment: Magnesium 2.0 today (9) DVT prophylaxis Current Visit: No Status: Acute Code(s): SPE3359 - SNOMED Code(s): 855866807 Comment: Warfarin, Therapeutic. INR 2.16 (10) Full code status Current Visit: No Status: Acute Code(s): Z78.9 - OTHER SPECIFIED HEALTH STATUS SNOMED Code(s): 393245350 Status and Disposition: inpatient
[2018-06-02] MEDS: Levofloxacin 750 MG IVPREMIX(* 750 MG/150 ML BAG IVPB SCH (18:56)
--- NOTE | 2018-06-02 19:06 | CONSULT ---
Consult Consult: Ortho consult note Chief Complaint: Left foot pain. History: Gordon is an 83-year-old man with diabetic neuropathy who presented to the emergency room 2 days ago with one day of worsening left foot pain and swelling. He reports that he has had a blister/callus/ulcer at the plantar and lateral aspect of the fifth MTP joint for months. It has waxed and waned. Then , 3 days ago, he started having swelling and redness. Since being admitted he reports that the swelling and redness have been slowly improving. Past medical history: diabetes with neuropathy, atrial fibrillation, obstructive sleep apnea, GERD, BPH, hypertension, hyperlipidemia, asthma Past surgical history: Appendectomy, rotator cuff repair . Medications: Glucosamine, vitamin D, multivitamin, vitamin C, albuterol, Atrovent,breo, Singulair, metoprolol, losartan, Flomax, furosemide, metformin, warfarin allergies: Penicillin social history: Former smoker. Occasional alcohol use. Family history: Heart disease, pancreatic cancer Review of Systems: Negative for fever, recent visual changes, difficulty swallowing, chest pain, abdominal pain, hematuria, easy bruising, diffuse weakness or lack of coordination, and diffuse rash. positive for shortness of breath. Physical Examination: Constitutional: Temp Pulse Resp BP Pulse Ox 98.7 F 45 26 135/61 98 06/02/18 15:52 06/02/18 15:52 06/02/18 15:52 06/02/18 15:52 06/02/18 15:52 General appearance is healthy and non-septic in no acute distress. Cardiovascular: Pulse examination demonstrates dopplerable pedal pulses with brisk capillary refill. There are no varicosities.. His bilateral lower extremities have chronic venous stasis changes. Lymphatic: No lymphadenopathy appreciated. Skin: Bilateral upper and lower extremity examination demonstrates no ulcerative lesions aside from those of the involved extremity detailed below, if present. Psychiatric / Neurological: Appropriate affect. Alert and oriented to person, place and time. There is no significant abnormality in coordination appreciated. Normoreflexive deep tendon reflex of the affected extremity. Musculoskeletal: Bilateral upper extremities and contralateral lower extremity show full range of motion with no evidence of instability and no tenderness with palpation and 5 /5 strength. There is no gross deformity. Sitting, there is 5/5 motor strength and impaired light touch sensation. Swelling/edema present throughout the left foot The skin and nails are normal to inspection/palpation without evidence of RSD or lymphadenopathy. 5-30 ankle ROM There is a small pinhole ulcer at the plantar aspect of the fifth MTP joint. I was unable to express any pus. there is erythema throughout the foot. No fluctuance. Studies: The MRI shows significant soft tissue swelling, but no osteomyelitis or abscesses WBC 10.2 ESR 17 CRP on admission 33.7 INR 2.16 Impression and Plan: Left foot cellulitis in the setting of diabetic neuropathy in the small ulcer at the plantar aspect of the fifth MTP joint. There does not appear to be a drainable collection. The MRI did not show osteomyelitis. He does feel this is improving on antibiotics. I would recommend continued IV antibiotics for now. I would recommend ABIs to formally assess his blood flow. Daily dressing changes. Try to avoid putting weight on the left forefoot. Mookie Hill MD
[2018-06-02] MEDS: Acetaminophen TAB* 325 MG PO PRN (23:11)
[2018-06-03] MEDS: metroNIDAZOLE IV 500 MG/100ML* 500 MG/100 ML BAG IVPB SCH ×3 (00:35→16:39)
[2018-06-03 06:57] LABS: INR 2.03 (0.77-1.02)
[2018-06-03 07:08] LABS: EGFR Non-African American 92.3 (>60)
[2018-06-03] MEDS: PTO:Fluticasone/Vilanterol MDI(NF) 200/25 MDI INH SCH (07:23)
[2018-06-03] MEDS ORDERED: Magnesium Sulfate IV* 2 GM in NS 0.9% 100 ML* 100 ML IVPB ONE (07:41)
[2018-06-03] MEDS: Insulin LISPRO* 1 UNITS UNIT SUBCUT SCH ×4 (08:06→20:17)
[2018-06-03] MEDS: Ascorbic Acid TAB* 500 MG PO SCH (08:20)
[2018-06-03] MEDS: Tamsulosin CAP* 0.4 MG PO SCH (08:22)
[2018-06-03] MEDS: Montelukast Sodium TAB* 10 MG PO SCH (08:22)
[2018-06-03] MEDS: Cholecalciferol TAB* 1000 UNITS PO SCH (08:23)
[2018-06-03] MEDS: Losartan TAB* 25 MG PO SCH (08:23)
[2018-06-03] MEDS: Multivitamins/Minerals TAB PO SCH (08:23)
[2018-06-03] MEDS: Furosemide TAB* 20 MG PO SCH (08:25)
[2018-06-03] MEDS: Metoprolol Succinate XL TAB* 50 MG PO SCH (08:25)
--- NOTE | 2018-06-03 10:17 | PN ---
Subjective Date of Service: 06/03/18 Interval History: c/o mild pain to left lateral foot. continues to have a mild amt of serosang drainage from the plantar ulcer when the lateral aspect of the upper left foot is palpated. Denies chest pain or shortness of breath. Denies abd pain n/v/d. Family History: Unchanged from Admission Social History: Unchanged from Admission Past Medical History: Unchanged from Admission Objective Active Medications: Acetaminophen (Tylenol Tab*) 650 mg PO Q4H PRN PRN Reason: FEVER/PAIN Last Admin: 06/02/18 23:11 Dose: 650 mg Al Hydrox/Mg Hydrox/Simethicone (Maalox Plus*) 30 ml PO Q6H PRN PRN Reason: INDIGESTION Albuterol (Ventolin Hfa Inhaler*) 2 puff INH Q6H PRN PRN Reason: SHORTNESS OF BREATH Ascorbic Acid (Vitamin C Tab*) 250 mg PO DAILY [facility] Last Admin: 06/03/18 08:20 Dose: 250 mg Cholecalciferol (Vitamin D Tab*) 5,000 units PO DAILY [facility] Last Admin: 06/03/18 08:23 Dose: 5,000 units Dextrose (D50w Syringe 50 Ml*) 12.5 gm IV PUSH .FOR FS < 60 - SS PRN PRN Reason: FS < 60 Fluticasone/Vilanterol (Breo Ellipta Mdi 200/25(Nf)) 1 puff INH QAM [facility] Last Admin: 06/03/18 07:23 Dose: Not Given Furosemide (Lasix Tab*) 20 mg PO DAILY [facility] Last Admin: 06/03/18 08:25 Dose: 20 mg Levofloxacin/Dextrose (Levaquin 750 Mg Ivpremix(*)) 750 mg in 150 mls @ 100 mls /hr IVPB Q24H [facility] Last Admin: 06/02/18 18:56 Dose: 100 mls/hr Metronidazole/Sodium Chloride (Flagyl 500 Mg Ivpb*) 500 mg in 100 mls @ 100 mls /hr IVPB Q8H [facility] Last Admin: 06/03/18 10:00 Dose: 100 mls/hr Insulin Human Lispro (Humalog*) 0 units SUBCUT ACHS [facility]; Protocol Last Admin: 06/03/18 08:06 Dose: Not Given Ipratropium [place] (Atrovent 0.5 Mg Neb.Stefani*) 0.5 mg INH BID PRN PRN Reason: SOB/WHEEZING Losartan Potassium (Cozaar Tab*) 50 mg PO QAM [facility] Last Admin: 06/03/18 08:23 Dose: 50 mg Metoprolol Succinate (Toprol Xl Tab*) 50 mg PO DAILY [facility] Last Admin: 06/03/18 08:25 Dose: 50 mg Montelukast Sodium (Singulair Tab*) 10 mg PO DAILY [facility] Last Admin: 06/03/18 08:22 Dose: 10 mg Multivitamins/Minerals (Theragran/Minerals Tab*) 1 tab PO DAILY [facility] Last Admin: 06/03/18 08:23 Dose: 1 tab Tamsulosin HCl (Flomax Cap*) 0.4 mg PO DAILY [facility] Last Admin: 06/03/18 08:22 Dose: 0.4 mg Vital Signs - 8 hr 06/03/18 06/03/18 06/03/18 03:10 03:14 06:50 Temperature 97.0 F Pulse Rate 56 53 Respiratory 20 20 Rate Blood Pressure 137/68 137/57 (mmHg) O2 Sat by Pulse 98 98 Oximetry 06/03/18 06:55 Temperature 97.2 F Pulse Rate Respiratory Rate Blood Pressure (mmHg) O2 Sat by Pulse Oximetry Oxygen Devices in Use Now: None Appearance: appears comfortable resting in bed, no acute distress. Ears/Nose/Mouth/Throat: NL Teeth, Lips, Gums Neck: NL Appearance and Movements; NL JVP, Trachea Midline Respiratory: Symmetrical Chest Expansion and Respiratory Effort, Clear to Auscultation Cardiovascular: - - +1 pitting edema to bilat lower ext. HR irregular, Murmur noted, NO JVD Extremities: No Clubbing, Cyanosis Skin: - - Left foot with small ulceration noted to plantar aspect of the foot, erythema noted to dorsal aspect of the foot improving, bilat lower ext with dark brown discoloration . left lower leg with mild erythema Neurological: Alert and Oriented x 3 Result Diagrams: 06/01/18 06:34 06/03/18 06:37 Microbiology and Other Data: Microbiology 05/31/18 16:50 Aerobic Blood Culture - Preliminary Blood Venous No Growth Day 1 Anaerobic Blood Culture - Preliminary No Growth Day 1 05/31/18 16:37 Aerobic Blood Culture - Preliminary Blood Venous No Growth Day 1 Anaerobic Blood Culture - Preliminary No Growth Day 1 05/31/18 17:56 Skin and Soft Tissue MRSA/MSSA (PCR - Final Foot Left Mrsa Negative S.aureus Positive Gram Stain - Final Wound Culture - Preliminary Staphylococcus Aureus Assess/Plan/Problems-Billing Assessment: Mr. Redmond is an 83-year-old male, who carries a past medical history significant for AFib, obstructive sleep apnea, diabetes, asthma, hypertension, hyperlipidemia, who presented to the emergency room today for increased pain and redness, swelling to his left lower extremity. The patient states approximately 5 weeks ago, he developed a blister on the plantar lateral aspect of his left foot and his foot was swollen at that time. The patient reports that over the past 2 to 3 days, he has developed redness in the foot along with swelling. - Patient Problems (1) Cellulitis Current Visit: Yes Status: Acute Code(s): L03.90 - CELLULITIS, UNSPECIFIED SNOMED Code(s): 848146016 Comment: - Patient remains afebrile - redness continues to improve to left foot and left lower leg, open area to plantar aspect of the left foot with small amt of serosangous drainage when left upper lateral foot is palpated. - will continue vancomycin, flagyl, levaquin - wound culture is negative for MRSA, positive MSSA, would with purlent drainage today from the plantar aspect of the left foot- repeat cultures taken yesterday -negative for MRSA , positive for MSSA, sens. pending - anaerobic culture is pending - Ortho consulted (2) Atrial fibrillation Current Visit: No Status: Acute Code(s): I48.91 - UNSPECIFIED ATRIAL FIBRILLATION SNOMED Code(s): 01580403 Comment: - Rate controlled on metoprolol and Cozaar - - frequent PVC's - asymptomatic improved - Stable- will continue to monitor on telemetry - continue coumadin (3) Asthma Current Visit: No Status: Acute Code(s): J45.909 - UNSPECIFIED ASTHMA, UNCOMPLICATED SNOMED Code(s): 889167877 Comment: stable Will continue home medications (4) BPH (benign prostatic hyperplasia) Current Visit: No Status: Acute Code(s): N40.0 - BENIGN PROSTATIC HYPERPLASIA WITHOUT LOWER URINRY TRACT SYMP SNOMED Code(s): 854618642 Comment: - Continue Flomax (5) Diabetes Current Visit: No Status: Acute Code(s): E11.9 - TYPE 2 DIABETES MELLITUS WITHOUT COMPLICATIONS SNOMED Code(s): 30325481 Comment: - Continue lispro SSI while inpatient - Fingersticks - Blood sugar 104-131 (6) HTN (hypertension) Current Visit: No Status: Acute Code(s): I10 - ESSENTIAL (PRIMARY) HYPERTENSION SNOMED Code(s): 53875141 Comment: - Normotensive. Continue metoprolol, cozaar and lasix (7) Aortic stenosis Current Visit: Yes Status: Acute Code(s): I35.0 - NONRHEUMATIC AORTIC (VALVE ) STENOSIS SNOMED Code(s): 85031833 Comment: Patient is currently being workup as an outpatient for Taver valve placement - angiogram for tuesday has been cancelled (8) Hypomagnesemia Current Visit: Yes Status: Acute Code(s): E83.42 - HYPOMAGNESEMIA SNOMED Code(s): 972375744 Comment: Magnesium 1.8 today - will give 2 grams of magnesium (9) DVT prophylaxis Current Visit: No Status: Acute Code(s): ECN5988 - SNOMED Code(s): 729118090 Comment: Warfarin, Therapeutic. INR 2.03 Increased coumadin to 3 mg (10) Full code status Current Visit: No Status: Acute Code(s): Z78.9 - OTHER SPECIFIED HEALTH STATUS SNOMED Code(s): 846830412 Status and Disposition: inpatient - discharge home when medically stable
[2018-06-03] MEDS ORDERED: Vancomycin Trough Check NOTE FOLLOW UP ONE (11:00)
[2018-06-03] MEDS: Warfarin TAB(*) 3 MG PO SCH (16:56)
[2018-06-03] MEDS ORDERED: Warfarin TAB(*) 2.5 MG PO SCH (17:00)
[2018-06-03] MEDS: Levofloxacin 750 MG IVPREMIX(* 750 MG/150 ML BAG IVPB SCH (18:15)
[2018-06-03] MEDS: Acetaminophen TAB* 325 MG PO PRN (23:06)
[2018-06-04] MEDS: metroNIDAZOLE IV 500 MG/100ML* 500 MG/100 ML BAG IVPB SCH ×2 (00:26→08:03)
[2018-06-04] MEDS: PTO:Fluticasone/Vilanterol MDI(NF) 200/25 MDI INH SCH (07:23)
[2018-06-04] MEDS: Insulin LISPRO* 1 UNITS UNIT SUBCUT SCH ×4 (07:44→20:07)
[2018-06-04] MEDS: Ascorbic Acid TAB* 500 MG PO SCH (07:45)
[2018-06-04] MEDS: Furosemide TAB* 20 MG PO SCH (07:45)
[2018-06-04] MEDS: Montelukast Sodium TAB* 10 MG PO SCH (07:45)
[2018-06-04] MEDS: Losartan TAB* 25 MG PO SCH (07:45)
[2018-06-04] MEDS: Multivitamins/Minerals TAB PO SCH (07:46)
[2018-06-04] MEDS: Cholecalciferol TAB* 1000 UNITS PO SCH (07:46)
[2018-06-04] MEDS: Metoprolol Succinate XL TAB* 50 MG PO SCH (08:04)
[2018-06-04] MEDS: Tamsulosin CAP* 0.4 MG PO SCH (08:11)
--- NOTE | 2018-06-04 11:26 | PN ---
Progress Note - Progress Note Date of Service: 06/04/18 Note: I saw and examined, Gordon this morning. He feels like there has been minimal improvement. No real pain. The foot is still swollen, without much in the way of erythema. There is a little bit of purulence at the small ulcer at the plantar aspect of the fifth metatarsal head. I am unable to express more, though. No real tenderness here. Overall, I think it looks about the same, maybe slightly improved. I think for now, we should continue antibiotics. I did discuss that if it doesn't start to improve more, we may consider a fifth metatarsal head resection and soft tissue debridement. He understood and would also like to get a little more time. Mookie Hill MD
--- NOTE | 2018-06-04 12:25 | RAD ---
Indication: Diabetic. LEFT foot ulcer. Comparison: No relevant prior exams available on the [facility] PACS for comparison. Technique: Ankle and brachial blood pressure measurement. Calculated ankle-brachial indices. REPORT: The right ankle brachial index is 1.15 within normal range. Triphasic posterior tibial and dorsalis pedis arterial waveforms. Unremarkable RIGHT ankle pulse volume recording. RIGHT toe brachial index is equal to 0.41 in moderately severe claudication range. The left ankle brachial index is 0.93, mildly abnormal. Low amplitude dysmorphic posterior tibial waveform. Biphasic waveform at the dorsalis pedis artery. Unremarkable LEFT ankle pulse volume recording. LEFT toe brachial index is equal to 0.52 in moderately severe claudication range. IMPRESSION: #. Normal RIGHT ankle brachial index. Abnormal RIGHT toe brachial index favoring distal small vessel disease. #. Low normal LEFT ankle brachial index. Abnormal LEFT toe brachial index favoring distal small vessel disease. Abnormal LEFT posterior tibial waveform.
--- NOTE | 2018-06-04 13:04 | PN ---
Subjective Date of Service: 06/04/18 Interval History: Patient seen and examined at bedside. Denies fever, chills, shortness of breath , chest discomfort, N/V. Pt states that he is having some diarrhea from the antibiotics. Tele: Junctional rhythm, rate 60-80's with PVCs. Family History: Unchanged from Admission Social History: Unchanged from Admission Past Medical History: Unchanged from Admission Objective Active Medications: Acetaminophen (Tylenol Tab*) 650 mg PO Q4H PRN Reason: FEVER/PAIN Al Hydrox/Mg Hydrox/Simethicone (Maalox Plus*) 30 ml PO Q6H PRN Reason: INDIGESTION Albuterol (Ventolin Hfa Inhaler*) 2 puff INH Q6H PRN Reason: SHORTNESS OF BREATH Ascorbic Acid (Vitamin C Tab*) 250 mg PO DAILY [facility] Cholecalciferol (Vitamin D Tab*) 5,000 units PO DAILY [facility] Dextrose (D50w Syringe 50 Ml*) 12.5 gm IV PUSH .FOR FS < 60 - SS PRN Reason: FS < 60 Fluticasone/Vilanterol (Breo Ellipta Mdi 200/25(Nf)) 1 puff INH QAM [facility] Furosemide (Lasix Tab*) 20 mg PO DAILY [facility] Levofloxacin/Dextrose (Levaquin 750 Mg Ivpremix(*)) 750 mg in 150 mls @ 100 mls /hr IVPB Q24H [facility] Metronidazole/Sodium Chloride (Flagyl 500 Mg Ivpb*) 500 mg in 100 mls @ 100 mls /hr IVPB Q8H [facility] Insulin Human Lispro (Humalog*) 0 units SUBCUT ACHS [facility]; Protocol Ipratropium [place] (Atrovent 0.5 Mg Neb.Stefani*) 0.5 mg INH BID PRN Reason: SOB/ WHEEZING Losartan Potassium (Cozaar Tab*) 50 mg PO QAM [facility] Metoprolol Succinate (Toprol Xl Tab*) 50 mg PO DAILY [facility] Montelukast Sodium (Singulair Tab*) 10 mg PO DAILY [facility] Multivitamins/Minerals (Theragran/Minerals Tab*) 1 tab PO DAILY [facility] Tamsulosin HCl (Flomax Cap*) 0.4 mg PO DAILY [facility] Warfarin Sodium (Coumadin Tab(*)) 3 mg PO DAILY@1700 [facility]; Protocol Vital Signs - 8 hr 06/04/18 06/04/18 06/04/18 07:29 07:51 08:00 Temperature 97.7 F Pulse Rate 57 60 Respiratory 18 18 Rate Blood Pressure 140/59 (mmHg) O2 Sat by Pulse 96 Oximetry Oxygen Devices in Use Now: None Appearance: NAD, sitting up on the side of the bed Ears/Nose/Mouth/Throat: Mucous Membranes Moist Respiratory: Symmetrical Chest Expansion and Respiratory Effort, Clear to Auscultation Cardiovascular: - - Heart rate irregular irregular Abdominal: NL Sounds; No Tenderness; No Distention Extremities: - - 1+ left LE edema Skin: - - Purple skin discoloration to bilateral LEs Neurological: Alert and Oriented x 3, NL Muscle Strength and Tone Lines/Tubes/Other Access: Clean, Dry and Intact Peripheral IV - site benign Nutrition: Taking PO's Result Diagrams: 06/01/18 06:34 06/03/18 06:37 Microbiology and Other Data: Microbiology 05/31/18 16:50 Aerobic Blood Culture - Preliminary Blood Venous No Growth Day 1 Anaerobic Blood Culture - Preliminary No Growth Day 1 05/31/18 16:37 Aerobic Blood Culture - Preliminary Blood Venous No Growth Day 1 Anaerobic Blood Culture - Preliminary No Growth Day 1 05/31/18 17:56 Skin and Soft Tissue MRSA/MSSA (PCR - Final Foot Left Mrsa Negative S.aureus Positive Gram Stain - Final Wound Culture - Preliminary Staphylococcus Aureus Assess/Plan/Problems-Billing Assessment: Mr. Redmond is an 83-year-old male, who carries a past medical history significant for AFib, obstructive sleep apnea, diabetes, asthma, hypertension, hyperlipidemia, who presented to the emergency room today for increased pain and redness, swelling to his left lower extremity. The patient states approximately 5 weeks ago, he developed a blister on the plantar lateral aspect of his left foot and his foot was swollen at that time. The patient reports that over the past 2 to 3 days, he has developed redness in the foot along with swelling. - Patient Problems (1) Cellulitis Code(s): L03.90 - CELLULITIS, UNSPECIFIED SNOMED Code(s): 459228641 Comment: - Secondary to diabetic foot ulcer - Afebrile and no leukocytosis - Redness continues to improve to left foot and left lower leg, open area to plantar aspect of the left foot with small amt of serosangous drainage when left upper lateral foot is palpated. - Wound culture positive for MSSA, wound with purlent drainage today from the plantar aspect of the left foot - Anaerobic culture is pending - Blood cultures, negative day 3 - Ortho consult, input appreciated - Continue vancomycin, flagyl, levaquin - Consider ID and Interventional consult (2) Aortic stenosis Code(s): I35.0 - NONRHEUMATIC AORTIC (VALVE) STENOSIS SNOMED Code(s): 57699016 Comment: - Currently being workup as an outpatient for TAVR - Previously scheduled angiogram for tuesday has been cancelled (3) Hypomagnesemia Current Visit: Yes Status: Acute Code(s): E83.42 - HYPOMAGNESEMIA SNOMED Code(s): 630329843 Comment: - Magnesium 1.8 yesterday, received replacecment - Check labs in the AM (4) Atrial fibrillation Code(s): I48.91 - UNSPECIFIED ATRIAL FIBRILLATION SNOMED Code(s): 92330452 Comment: - Rate controlled - Frequent PVC's, asymptomatic - Continue metoprolol, Cozaar, and coumadin (5) Asthma Code(s): J45.909 - UNSPECIFIED ASTHMA, UNCOMPLICATED SNOMED Code(s): 636602203 Comment: - No signs of acite exacerbation at this time - Continue singulair, Atrovent PRN, Breo, and Albuterol PRN (6) BPH (benign prostatic hyperplasia) Code(s): N40.0 - BENIGN PROSTATIC HYPERPLASIA WITHOUT LOWER URINRY TRACT SYMP SNOMED Code(s): 406181277 Comment: - Continue Flomax (7) Diabetes Code(s): E11.9 - TYPE 2 DIABETES MELLITUS WITHOUT COMPLICATIONS SNOMED Code(s) : 45610383 Comment: - Glucose 110-190's - Continue lispro SSI (8) HLD (hyperlipidemia) Code(s): E78.5 - HYPERLIPIDEMIA, UNSPECIFIED SNOMED Code(s): 96522722 Comment: - Currently not on medications - Follow up outpatient with PCP. (9) HTN (hypertension) Code(s): I10 - ESSENTIAL (PRIMARY) HYPERTENSION SNOMED Code(s): 50212556 Comment: - Normotensive, slightly hypertensive. SBP 130-150's - Continue metoprolol, cozaar and lasix (10) GELACIO (obstructive sleep apnea) Status: Chronic Code(s): G47.33 - OBSTRUCTIVE SLEEP APNEA (ADULT) (PEDIATRIC) SNOMED Code(s): 16762145 Comment: - CPAP at home - Declines hospital device at this time (11) DVT prophylaxis Code(s): HNX8849 - SNOMED Code(s): 528540548 Comment: - Continue Warfarin - INR Therapeutic (12) Full code status Code(s): Z78.9 - OTHER SPECIFIED HEALTH STATUS SNOMED Code(s): 092854131 Status and Disposition: Inpatient. Discharge to home when medically stable
[2018-06-04] MEDS: Levofloxacin 750 MG IVPREMIX(* 750 MG/150 ML BAG IVPB SCH (18:11)
[2018-06-04] MEDS: Warfarin TAB(*) 3 MG PO SCH (18:11)
[2018-06-05 08:28] LABS: ABS Basophils 0.1 10^3/ul (0-0.2); ABS Eosinophils 0.1 10^3/ul (0-0.6); ABS Lymphocytes 1.6 10^3/ul (1.0-4.8); ABS Neutrophils 5.7 10^3/ul (1.5-7.7); ABS Nucleated RBC 0 10^3/ul; Eosinophil % 1.6 % (0-6); Hematocrit 39 % (42-52); Hemoglobin 12.9 g/dl (14.0-18.0); Lymphocyte % 19.2 % (25-47); Mean Corpuscular HGB Conc 34 g/dl (31-36); Mean Corpuscular Hemoglobin 30 pg (27-31); Mean Corpuscular Volume 90 fL (80-94); Mean Platelet Volume 7.7 um3 (7.4-10.4); Nucleated Red Blood Cells % 0; Platelet Count 196 10^3/ul (150-450); Red Cell Distribution Width 16 % (10.5-15); White Blood Count 8.5 10^3/ul (3.5-10.8)
[2018-06-05 08:32] LABS: INR 2.45 (0.77-1.02)
[2018-06-05 08:40] LABS: EGFR Non-African American 81.6 (>60)
[2018-06-05] MEDS: Insulin LISPRO* 1 UNITS UNIT SUBCUT SCH ×4 (09:03→20:59)
[2018-06-05] MEDS: Metoprolol Succinate XL TAB* 50 MG PO SCH (09:08)
[2018-06-05] MEDS: Losartan TAB* 25 MG PO SCH (09:08)
[2018-06-05] MEDS: Tamsulosin CAP* 0.4 MG PO SCH (09:08)
[2018-06-05] MEDS: Ascorbic Acid TAB* 500 MG PO SCH (09:08)
[2018-06-05] MEDS: Multivitamins/Minerals TAB PO SCH (09:08)
[2018-06-05] MEDS: Furosemide TAB* 20 MG PO SCH (09:08)
[2018-06-05] MEDS: Montelukast Sodium TAB* 10 MG PO SCH (09:08)
[2018-06-05] MEDS: Cholecalciferol TAB* 1000 UNITS PO SCH (09:08)
[2018-06-05] MEDS: PTO:Fluticasone/Vilanterol MDI(NF) 200/25 MDI INH SCH (09:41)
[2018-06-05] MEDS ORDERED: Magnesium Sulfate 1 GM IV* 1 GM/100 ML BAG IV ONE (12:17)
--- NOTE | 2018-06-05 12:23 | PN ---
Subjective Date of Service: 06/05/18 Interval History: No pain No BM today so far. No new c/o. Family History: Unchanged from Admission Social History: Unchanged from Admission Past Medical History: Unchanged from Admission Objective Active Medications: Acetaminophen (Tylenol Tab*) 650 mg PO Q4H PRN PRN Reason: FEVER/PAIN Last Admin: 06/03/18 23:06 Dose: 650 mg Al Hydrox/Mg Hydrox/Simethicone (Maalox Plus*) 30 ml PO Q6H PRN PRN Reason: INDIGESTION Albuterol (Ventolin Hfa Inhaler*) 2 puff INH Q6H PRN PRN Reason: SHORTNESS OF BREATH Ascorbic Acid (Vitamin C Tab*) 250 mg PO DAILY [facility] Last Admin: 06/05/18 09:08 Dose: 250 mg Cholecalciferol (Vitamin D Tab*) 5,000 units PO DAILY [facility] Last Admin: 06/05/18 09:08 Dose: 5,000 units Dextrose (D50w Syringe 50 Ml*) 12.5 gm IV PUSH .FOR FS < 60 - SS PRN PRN Reason: FS < 60 Fluticasone/Vilanterol (Breo Ellipta Mdi 200/25(Nf)) 1 puff INH QAM [facility] Last Admin: 06/05/18 09:41 Dose: 1 puff Furosemide (Lasix Tab*) 20 mg PO DAILY [facility] Last Admin: 06/05/18 09:08 Dose: 20 mg Levofloxacin/Dextrose (Levaquin 750 Mg Ivpremix(*)) 750 mg in 150 mls @ 100 mls /hr IVPB Q24H [facility] Last Admin: 06/04/18 18:11 Dose: 100 mls/hr Insulin Human Lispro (Humalog*) 0 units SUBCUT [facility]; Protocol Last Admin: 06/05/18 09:03 Dose: Not Given Ipratropium [place] (Atrovent 0.5 Mg Neb.Stefani*) 0.5 mg INH BID PRN PRN Reason: SOB/WHEEZING Losartan Potassium (Cozaar Tab*) 50 mg PO QAM [facility] Last Admin: 06/05/18 09:08 Dose: 50 mg Metoprolol Succinate (Toprol Xl Tab*) 50 mg PO DAILY [facility] Last Admin: 06/05/18 09:08 Dose: 50 mg Montelukast Sodium (Singulair Tab*) 10 mg PO DAILY [facility] Last Admin: 06/05/18 09:08 Dose: 10 mg Multivitamins/Minerals (Theragran/Minerals Tab*) 1 tab PO DAILY [facility] Last Admin: 06/05/18 09:08 Dose: 1 tab Tamsulosin HCl (Flomax Cap*) 0.4 mg PO DAILY [facility] Last Admin: 06/05/18 09:08 Dose: 0.4 mg Warfarin Sodium (Coumadin Tab(*)) 3 mg PO DAILY@1700 [facility]; Protocol Last Admin: 06/04/18 18:11 Dose: 3 mg Vital Signs - 8 hr 06/05/18 06/05/18 07:48 09:42 Temperature 98.1 F Pulse Rate 49 59 Respiratory 17 20 Rate Blood Pressure 144/73 (mmHg) O2 Sat by Pulse 99 97 Oximetry Oxygen Devices in Use Now: None Appearance: Alert, sitting on the edge of his bed. In good spirits. Looks comfortable. Eyes: No Scleral Icterus Respiratory: Symmetrical Chest Expansion and Respiratory Effort, Clear to Auscultation, Clear to Percussion Cardiovascular: RRR, No Edema, - - 1-2/6 systolic murmur RSB Extremities: No Edema, No Clubbing, Cyanosis, - - L foot bandaged Skin: No Rash or Ulcers, No Nodules or Sclerosis, - Neurological: Alert and Oriented x 3, NL Sensation Result Diagrams: 06/05/18 07:44 06/05/18 07:44 Microbiology and Other Data: Microbiology 05/31/18 16:50 Aerobic Blood Culture - Preliminary Blood Venous No Growth Day 1 Anaerobic Blood Culture - Preliminary No Growth Day 1 05/31/18 16:37 Aerobic Blood Culture - Preliminary Blood Venous No Growth Day 1 Anaerobic Blood Culture - Preliminary No Growth Day 1 05/31/18 17:56 Skin and Soft Tissue MRSA/MSSA (PCR - Final Foot Left Mrsa Negative S.aureus Positive Gram Stain - Final Wound Culture - Preliminary Staphylococcus Aureus Assess/Plan/Problems-Billing Assessment: Mr. Redmond is an 83-year-old male, who carries a past medical history significant for AFib, obstructive sleep apnea, diabetes, asthma, hypertension, hyperlipidemia, who presented to the emergency room today for increased pain and redness, swelling to his left lower extremity. The patient states approximately 5 weeks ago, he developed a blister on the plantar lateral aspect of his left foot and his foot was swollen at that time. The patient reports that over the past 2 to 3 days, he has developed redness in the foot along with swelling. - Patient Problems (1) Diabetic foot infection Current Visit: Yes Status: Acute Code(s): E11.628 - TYPE 2 DIABETES MELLITUS WITH OTHER SKIN COMPLICATIONS; L08.9 - LOCAL INFECTION OF THE SKIN AND SUBCUTANEOUS TISSUE, UNSP SNOMED Code(s): 535163131 Comment: Awaiti ID consult to adjust antibiotic regimen. Resection of Left fifth metatarsal head still a possibility. (2) Aortic stenosis Current Visit: No Status: Chronic Code(s): I35.0 - NONRHEUMATIC AORTIC ( VALVE) STENOSIS SNOMED Code(s): 69393353 Comment: - Currently being workup as an outpatient for TAVR - Previously scheduled angiogram has been cancelled (3) Hypomagnesemia Current Visit: Yes Status: Acute Code(s): E83.42 - HYPOMAGNESEMIA SNOMED Code(s): 153817906 Comment: - Magnesium 1.8 again 06/05, IV magnesium ordered 06/05 and po scheduled magnesium. (4) HTN (hypertension) Current Visit: No Status: Chronic Code(s): I10 - ESSENTIAL (PRIMARY) HYPERTENSION SNOMED Code(s): 24361390 Comment: - Normotensive, slightly hypertensive. SBP 130-150's - Continue metoprolol, cozaar and lasix (5) GELACIO (obstructive sleep apnea) Current Visit: No Status: Chronic Code(s): G47.33 - OBSTRUCTIVE SLEEP APNEA (ADULT) (PEDIATRIC) SNOMED Code(s): 12326508 Comment: - CPAP at home - Declines hospital device at this time Status and Disposition: Inpatient. Discharge to home when medically stable
--- NOTE | 2018-06-05 14:25 | PN ---
Progress Note - Progress Note Date of Service: 06/05/18 SOAP: Subjective: [] Patient seen at bedside today. He is feeling well without feeling of fever or chills. No pain of left foot. Objective: []General: Well appearing, NAD LLE: Left lower leg and foot remain quite swollen with what appears to be chronic hyperpigmentation rather than erythema. Unable to express purulence from ulceration plantar aspect of 5th met head Assessment: [] left diabetic foot infection Plan: []Continue antibiotics. Will continue to monitor, if no improvement may require fifth metatarsal head resection and soft tissue debridement. Heel WB Vital Signs Temp 98.0 F 06/05/18 11:08 Pulse 69 06/05/18 11:08 Resp 17 06/05/18 11:08 BP 131/58 06/05/18 11:08 Pulse Ox 96 06/05/18 11:08 Intake & Output 06/04/18 06/05/18 06/05/18 18:59 06:59 18:59 Intake Total 1070 150 480 Output Total 0 300 Balance 1070 150 180 Intake: IVPB 150 ABX - LEVAQUIN 150 Oral 1070 0 480 Output: Urine 0 300 Other: # Bowel Movements 0 2 # Voids 5 Laboratory Last Values WBC 8.5 10^3/ul (3.5-10.8) 06/05/18 07:44 RBC 4.30 10^6/ul (4.00-5.40) 06/05/18 07:44 Hgb 12.9 g/dl (14.0-18.0) L 06/05/18 07:44 Hct 39 % (42-52) L 06/05/18 07:44 MCV 90 fL (80-94) 06/05/18 07:44 MCH 30 pg (27-31) 06/05/18 07:44 MCHC 34 g/dl (31-36) 06/05/18 07:44 RDW 16 % (10.5-15) H 06/05/18 07:44 Plt Count 196 10^3/ul (150-450) 06/05/18 07:44 MPV 7.7 um3 (7.4-10.4) 06/05/18 07:44 Neut % (Auto) 66.7 % (38-83) 06/05/18 07:44 Lymph % (Auto) 19.2 % (25-47) L 06/05/18 07:44 [place] % (Auto) 11.9 % (0-7) H 06/05/18 07:44 Eos % (Auto) 1.6 % (0-6) 06/05/18 07:44 Baso % (Auto) 0.6 % (0-2) 06/05/18 07:44 Absolute Neuts (auto) 5.7 10^3/ul (1.5-7.7) 06/05/18 07:44 Absolute Lymphs (auto) 1.6 10^3/ul (1.0-4.8) 06/05/18 07:44 Absolute Monos (auto) 1.0 10^3/ul (0-0.8) H 06/05/18 07:44 Absolute Eos (auto) 0.1 10^3/ul (0-0.6) 06/05/18 07:44 Absolute Basos (auto) 0.1 10^3/ul (0-0.2) 06/05/18 07:44 Absolute Nucleated RBC 0 10^3/ul 06/05/18 07:44 Nucleated RBC % 0 06/05/18 07:44 ESR 17 mm/Hr (0-40) 05/31/18 13:18 INR (Anticoag Therapy) 2.45 (0.77-1.02) H 06/05/18 07:44 Sodium 133 mmol/L (135-145) L 06/05/18 07:44 Potassium 4.4 mmol/L (3.5-5.0) 06/05/18 07:44 Chloride 99 mmol/L (101-111) L 06/05/18 07:44 Carbon Dioxide 28 mmol/L (22-32) 06/05/18 07:44 Anion Gap 6 mmol/L (2-11) 06/05/18 07:44 BUN 16 mg/dL (6-24) 06/05/18 07:44 Creatinine 0.89 mg/dL (0.67-1.17) 06/05/18 07:44 Est GFR ( Amer) 98.8 (>60) 06/05/18 07:44 Est GFR (Non-Af Amer) 81.6 (>60) 06/05/18 07:44 BUN/Creatinine Ratio 18.0 (8-20) 06/05/18 07:44 Glucose 91 mg/dL (70-100) 06/05/18 07:44 POC Glucose (mg/dL) 121 mg/dL (70-100) H 06/05/18 11:40 Lactic Acid 2.0 mmol/L (0.5-2.0) 05/31/18 16:37 Calcium 9.2 mg/dL (8.6-10.3) 06/05/18 07:44 Magnesium 1.8 mg/dL (1.9-2.7) L 06/05/18 07:44 Total Bilirubin 2.40 mg/dL (0.2-1.0) H 05/31/18 13:18 AST 29 U/L (13-39) 05/31/18 13:18 ALT 22 U/L (7-52) 05/31/18 13:18 Alkaline Phosphatase 87 U/L (34-104) 05/31/18 13:18 C-Reactive Protein 9.95 mg/L (<8.01) H 06/05/18 07:44 Total Protein 6.7 g/dL (6.4-8.9) 05/31/18 13:18 Albumin 4.1 g/dL (3.2-5.2) 05/31/18 13:18 Globulin 2.6 g/dL (2-4) 05/31/18 13:18 Albumin/Globulin Ratio 1.6 (1-3) 05/31/18 13:18 Urine Color Yellow 05/31/18 18:00 Urine Appearance Clear 05/31/18 18:00 Urine pH 5.0 (5-9) 05/31/18 18:00 Ur Specific [place] 1.017 (1.010-1.030) 05/31/18 18:00 Urine Protein Negative (Negative) 05/31/18 18:00 Urine Ketones Trace (Negative) A 05/31/18 18:00 Urine Blood Negative (Negative) 05/31/18 18:00 Urine Nitrate Negative (Negative) 05/31/18 18:00 Urine Bilirubin Negative (Negative) 05/31/18 18:00 Urine Urobilinogen Negative (Negative) 05/31/18 18:00 Ur Leukocyte Esterase Negative (Negative) 05/31/18 18:00 Urine Glucose Negative (Negative) 05/31/18 18:00 Urine Ascorbic Acid * (Negative) A 05/31/18 18:00 Vancomycin Trough 13.8 mcg/mL 06/01/18 19:12
[2018-06-05] MEDS: Levofloxacin 750 MG IVPREMIX(* 750 MG/150 ML BAG IVPB SCH (18:21)
[2018-06-05] MEDS: Warfarin TAB(*) 3 MG PO SCH (18:22)
[2018-06-05] MEDS: Magnesium Oxide TAB* 400 MG PO SCH (21:06)
[2018-06-06] MEDS: PTO:Fluticasone/Vilanterol MDI(NF) 200/25 MDI INH SCH (07:39)
[2018-06-06] MEDS: Cholecalciferol TAB* 1000 UNITS PO SCH (09:47)
[2018-06-06] MEDS: Insulin LISPRO* 1 UNITS UNIT SUBCUT SCH ×3 (09:47→21:08)
[2018-06-06] MEDS: Tamsulosin CAP* 0.4 MG PO SCH (09:48)
[2018-06-06] MEDS: Multivitamins/Minerals TAB PO SCH (09:48)
[2018-06-06] MEDS: Ascorbic Acid TAB* 500 MG PO SCH (09:48)
[2018-06-06] MEDS: Losartan TAB* 25 MG PO SCH (09:48)
[2018-06-06] MEDS: Furosemide TAB* 20 MG PO SCH (09:48)
[2018-06-06] MEDS: Magnesium Oxide TAB* 400 MG PO SCH ×2 (09:48→21:09)
[2018-06-06] MEDS: Metoprolol Succinate XL TAB* 50 MG PO SCH (09:49)
[2018-06-06] MEDS: Montelukast Sodium TAB* 10 MG PO SCH (09:49)
--- NOTE | 2018-06-06 09:53 | PN ---
Progress Note - Progress Note Date of Service: 06/06/18 SOAP: Subjective: []Patient seen at bedside. He has no complaints, no pain of his left foot and feels his left leg is less swollen today. Afebrile overnight. Objective: []General: Well appearing, NAD LLE: Left lower leg and foot remain edematous, mildly improved from yesterday. No erythema, foot and leg coloration consistent with right side. No warmth and no drainage, unable to express purulence from ulceration plantar aspect of 5th met head Assessment: [] left diabetic foot infection Plan: []Continue antibiotics, does seem to be improving. ID consult placed Will continue to monitor, if no improvement may require fifth metatarsal head resection and soft tissue debridement. Heel WB Vital Signs Temp 97.4 F 06/06/18 07:43 Pulse 59 06/06/18 07:43 Resp 18 06/06/18 07:43 BP 142/60 06/06/18 07:43 Pulse Ox 94 06/06/18 07:43 Intake & Output 06/05/18 06/06/18 06/06/18 18:59 06:59 18:59 Intake Total 580 150 120 Output Total 300 300 Balance 280 -150 120 Intake: IVPB 100 150 ABX - LEVAQUIN 150 Magnesium 100 Oral 480 0 120 Output: Urine 300 300 Other: # Bowel Movements 2 0 # Voids 5 Laboratory Last Values WBC 8.5 10^3/ul (3.5-10.8) 06/05/18 07:44 RBC 4.30 10^6/ul (4.00-5.40) 06/05/18 07:44 Hgb 12.9 g/dl (14.0-18.0) L 06/05/18 07:44 Hct 39 % (42-52) L 06/05/18 07:44 MCV 90 fL (80-94) 06/05/18 07:44 MCH 30 pg (27-31) 06/05/18 07:44 MCHC 34 g/dl (31-36) 06/05/18 07:44 RDW 16 % (10.5-15) H 06/05/18 07:44 Plt Count 196 10^3/ul (150-450) 06/05/18 07:44 MPV 7.7 um3 (7.4-10.4) 06/05/18 07:44 Neut % (Auto) 66.7 % (38-83) 06/05/18 07:44 Lymph % (Auto) 19.2 % (25-47) L 06/05/18 07:44 [place] % (Auto) 11.9 % (0-7) H 06/05/18 07:44 Eos % (Auto) 1.6 % (0-6) 06/05/18 07:44 Baso % (Auto) 0.6 % (0-2) 06/05/18 07:44 Absolute Neuts (auto) 5.7 10^3/ul (1.5-7.7) 06/05/18 07:44 Absolute Lymphs (auto) 1.6 10^3/ul (1.0-4.8) 06/05/18 07:44 Absolute Monos (auto) 1.0 10^3/ul (0-0.8) H 06/05/18 07:44 Absolute Eos (auto) 0.1 10^3/ul (0-0.6) 06/05/18 07:44 Absolute Basos (auto) 0.1 10^3/ul (0-0.2) 06/05/18 07:44 Absolute Nucleated RBC 0 10^3/ul 06/05/18 07:44 Nucleated RBC % 0 06/05/18 07:44 ESR 17 mm/Hr (0-40) 05/31/18 13:18 INR (Anticoag Therapy) 2.45 (0.77-1.02) H 06/05/18 07:44 Sodium 133 mmol/L (135-145) L 06/05/18 07:44 Potassium 4.4 mmol/L (3.5-5.0) 06/05/18 07:44 Chloride 99 mmol/L (101-111) L 06/05/18 07:44 Carbon Dioxide 28 mmol/L (22-32) 06/05/18 07:44 Anion Gap 6 mmol/L (2-11) 06/05/18 07:44 BUN 16 mg/dL (6-24) 06/05/18 07:44 Creatinine 0.89 mg/dL (0.67-1.17) 06/05/18 07:44 Est GFR ( Amer) 98.8 (>60) 06/05/18 07:44 Est GFR (Non-Af Amer) 81.6 (>60) 06/05/18 07:44 BUN/Creatinine Ratio 18.0 (8-20) 06/05/18 07:44 Glucose 91 mg/dL (70-100) 06/05/18 07:44 POC Glucose (mg/dL) 103 mg/dL (70-100) H 06/06/18 08:33 Lactic Acid 2.0 mmol/L (0.5-2.0) 05/31/18 16:37 Calcium 9.2 mg/dL (8.6-10.3) 06/05/18 07:44 Magnesium 1.8 mg/dL (1.9-2.7) L 06/05/18 07:44 Total Bilirubin 2.40 mg/dL (0.2-1.0) H 05/31/18 13:18 AST 29 U/L (13-39) 05/31/18 13:18 ALT 22 U/L (7-52) 05/31/18 13:18 Alkaline Phosphatase 87 U/L (34-104) 05/31/18 13:18 C-Reactive Protein 9.95 mg/L (<8.01) H 06/05/18 07:44 Total Protein 6.7 g/dL (6.4-8.9) 05/31/18 13:18 Albumin 4.1 g/dL (3.2-5.2) 05/31/18 13:18 Globulin 2.6 g/dL (2-4) 05/31/18 13:18 Albumin/Globulin Ratio 1.6 (1-3) 05/31/18 13:18 Urine Color Yellow 05/31/18 18:00 Urine Appearance Clear 05/31/18 18:00 Urine pH 5.0 (5-9) 05/31/18 18:00 Ur Specific [place] 1.017 (1.010-1.030) 05/31/18 18:00 Urine Protein Negative (Negative) 05/31/18 18:00 Urine Ketones Trace (Negative) A 05/31/18 18:00 Urine Blood Negative (Negative) 05/31/18 18:00 Urine Nitrate Negative (Negative) 05/31/18 18:00 Urine Bilirubin Negative (Negative) 05/31/18 18:00 Urine Urobilinogen Negative (Negative) 05/31/18 18:00 Ur Leukocyte Esterase Negative (Negative) 05/31/18 18:00 Urine Glucose Negative (Negative) 05/31/18 18:00 Urine Ascorbic Acid * (Negative) A 05/31/18 18:00 Vancomycin Trough 13.8 mcg/mL 06/01/18 19:12
--- NOTE | 2018-06-06 14:53 | PN ---
Subjective Date of Service: 06/06/18 Interval History: Little or no pain. Walks some. He notes that his L leg edema is much better. No bowel c/o. Good appetite. Family History: Unchanged from Admission Social History: Unchanged from Admission Past Medical History: Unchanged from Admission Objective Active Medications: Acetaminophen (Tylenol Tab*) 650 mg PO Q4H PRN PRN Reason: FEVER/PAIN Last Admin: 06/03/18 23:06 Dose: 650 mg Al Hydrox/Mg Hydrox/Simethicone (Maalox Plus*) 30 ml PO Q6H PRN PRN Reason: INDIGESTION Albuterol (Ventolin Hfa Inhaler*) 2 puff INH Q6H PRN PRN Reason: SHORTNESS OF BREATH Ascorbic Acid (Vitamin C Tab*) 250 mg PO DAILY [facility] Last Admin: 06/06/18 09:48 Dose: 250 mg Cholecalciferol (Vitamin D Tab*) 5,000 units PO DAILY [facility] Last Admin: 06/06/18 09:47 Dose: 5,000 units Dextrose (D50w Syringe 50 Ml*) 12.5 gm IV PUSH .FOR FS < 60 - SS PRN PRN Reason: FS < 60 Fluticasone/Vilanterol (Breo Ellipta Mdi 200/25(Nf)) 1 puff INH QAM [facility] Last Admin: 06/06/18 07:39 Dose: 1 puff Furosemide (Lasix Tab*) 20 mg PO DAILY [facility] Last Admin: 06/06/18 09:48 Dose: 20 mg Levofloxacin/Dextrose (Levaquin 750 Mg Ivpremix(*)) 750 mg in 150 mls @ 100 mls /hr IVPB Q24H [facility] Last Admin: 06/05/18 18:21 Dose: 100 mls/hr Insulin Human Lispro (Humalog*) 0 units SUBCUT Q12H [facility]; Protocol Ipratropium Adel (Atrovent 0.5 Mg Neb.Stefani*) 0.5 mg INH BID PRN PRN Reason: SOB/WHEEZING Losartan Potassium (Cozaar Tab*) 50 mg PO QAM [facility] Last Admin: 06/06/18 09:48 Dose: 50 mg Magnesium Oxide (Magox 400 Tab*) 400 mg PO BID [facility] Last Admin: 06/06/18 09:48 Dose: 400 mg Metoprolol Succinate (Toprol Xl Tab*) 50 mg PO DAILY [facility] Last Admin: 06/06/18 09:49 Dose: 50 mg Montelukast Sodium (Singulair Tab*) 10 mg PO DAILY [facility] Last Admin: 06/06/18 09:49 Dose: 10 mg Multivitamins/Minerals (Theragran/Minerals Tab*) 1 tab PO DAILY [facility] Last Admin: 06/06/18 09:48 Dose: 1 tab Tamsulosin HCl (Flomax Cap*) 0.4 mg PO DAILY [facility] Last Admin: 06/06/18 09:48 Dose: 0.4 mg Warfarin Sodium (Coumadin Tab(*)) 3 mg PO DAILY@1700 [facility]; Protocol Last Admin: 06/05/18 18:22 Dose: 3 mg Vital Signs - 8 hr 06/06/18 06/06/18 06/06/18 07:43 08:00 11:23 Temperature 97.4 F 97.4 F Pulse Rate 59 60 Respiratory 18 18 18 Rate Blood Pressure 142/60 123/69 (mmHg) O2 Sat by Pulse 94 99 Oximetry Oxygen Devices in Use Now: None Appearance: Alert, sitting up in bed. I ngood spirits. Looks comfortable. Eyes: No Scleral Icterus Neck: NL Appearance and Movements; NL JVP, No Thyroid Enlargement, Masses Respiratory: Symmetrical Chest Expansion and Respiratory Effort, Clear to Auscultation, Clear to Percussion Cardiovascular: RRR, No Edema, - - holostystolic murmur 1-2/6 RSB Extremities: No Clubbing, Cyanosis, - - L calf larger than R, no pitting, no tenderness. L foot bandaged. Skin: No Nodules or Sclerosis, - - Lower legs hyperpigmented, L > R. Neurological: Alert and Oriented x 3, NL Sensation Result Diagrams: 06/05/18 07:44 06/05/18 07:44 Microbiology and Other Data: Microbiology 05/31/18 16:50 Aerobic Blood Culture - Preliminary Blood Venous No Growth Day 1 Anaerobic Blood Culture - Preliminary No Growth Day 1 05/31/18 16:37 Aerobic Blood Culture - Preliminary Blood Venous No Growth Day 1 Anaerobic Blood Culture - Preliminary No Growth Day 1 05/31/18 17:56 Skin and Soft Tissue MRSA/MSSA (PCR - Final Foot Left Mrsa Negative S.aureus Positive Gram Stain - Final Wound Culture - Preliminary Staphylococcus Aureus Assess/Plan/Problems-Billing Assessment: Mr. Redmond is an 83-year-old male, who carries a past medical history significant for AFib, obstructive sleep apnea, diabetes, asthma, hypertension, hyperlipidemia, who presented to the emergency room today for increased pain and redness, swelling to his left lower extremity. The patient states approximately 5 weeks ago, he developed a blister on the plantar lateral aspect of his left foot and his foot was swollen at that time. The patient reports that over the past 2 to 3 days, he has developed redness in the foot along with swelling. - Patient Problems (1) Diabetic foot infection Current Visit: Yes Status: Acute Code(s): E11.628 - TYPE 2 DIABETES MELLITUS WITH OTHER SKIN COMPLICATIONS; L08.9 - LOCAL INFECTION OF THE SKIN AND SUBCUTANEOUS TISSUE, UNSP SNOMED Code(s): 730252867 Comment: Awaiti ID consult to adjust antibiotic regimen. Resection of Left fifth metatarsal head still a possibility. (2) Aortic stenosis Current Visit: No Status: Chronic Code(s): I35.0 - NONRHEUMATIC AORTIC ( VALVE) STENOSIS SNOMED Code(s): 34068744 Comment: - Currently being workup as an outpatient for TAVR - Previously scheduled angiogram has been cancelled (3) Hypomagnesemia Current Visit: Yes Status: Acute Code(s): E83.42 - HYPOMAGNESEMIA SNOMED Code(s): 123726066 Comment: - Magnesium level 06/07. Continue po scheduled magnesium. (4) HTN (hypertension) Current Visit: No Status: Chronic Code(s): I10 - ESSENTIAL (PRIMARY) HYPERTENSION SNOMED Code(s): 01119356 Comment: - Normotensive, slightly hypertensive. SBP 123-142 06/06. - Continue metoprolol, cozaar and lasix (5) GELACIO (obstructive sleep apnea) Current Visit: No Status: Chronic Code(s): G47.33 - OBSTRUCTIVE SLEEP APNEA (ADULT) (PEDIATRIC) SNOMED Code(s): 25156121 Comment: - CPAP at home - Declines hospital device at this time Status and Disposition: Inpatient. Discharge to home when medically stable
[2018-06-06] MEDS: Levofloxacin 750 MG IVPREMIX(* 750 MG/150 ML BAG IVPB SCH (17:43)
[2018-06-06] MEDS: Warfarin TAB(*) 3 MG PO SCH (17:43)
[2018-06-07 07:53] LABS: EGFR Non-African American 82.7 (>60)
[2018-06-07 07:56] LABS: INR 3.49 (0.77-1.02)
[2018-06-07] MEDS: Cholecalciferol TAB* 1000 UNITS PO SCH (08:41)
[2018-06-07] MEDS: Losartan TAB* 25 MG PO SCH (08:41)
[2018-06-07] MEDS: Furosemide TAB* 20 MG PO SCH (08:41)
[2018-06-07] MEDS: Ascorbic Acid TAB* 500 MG PO SCH (08:42)
[2018-06-07] MEDS: Metoprolol Succinate XL TAB* 50 MG PO SCH (08:42)
[2018-06-07] MEDS: Montelukast Sodium TAB* 10 MG PO SCH (08:43)
[2018-06-07] MEDS: Tamsulosin CAP* 0.4 MG PO SCH (08:43)
[2018-06-07] MEDS: Magnesium Oxide TAB* 400 MG PO SCH (08:43)
[2018-06-07] MEDS: Multivitamins/Minerals TAB PO SCH (08:43)
[2018-06-07] MEDS: Insulin LISPRO* 1 UNITS UNIT SUBCUT SCH (08:48)
[2018-06-07] MEDS: PTO:Fluticasone/Vilanterol MDI(NF) 200/25 MDI INH SCH (09:22)
[2018-06-07 11:25] VITALS: BP 140/55
--- NOTE | 2018-06-07 11:37 | PN ---
Progress Note - Progress Note Date of Service: 06/07/18 Note: Time spent on discharge 45 minutes, including discussion with patient, nurse, pharmacist, exam of patient, review of EMR, preparation of discharge documents.
[2018-06-07] MEDS ORDERED: Cephalexin CAP* 500 MG PO SCH (13:00)
--- NOTE | 2018-06-07 16:29 | CONS ---
CONSULTATION REPORT: DATE OF CONSULT: 06/07/18 REQUESTING PHYSICIAN: Dr. Fowler. CONSULTING SERVICE: Infectious Disease. REASON FOR CONSULTATION: Left foot infection. IMPRESSION: 1. 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 MRI showed no osteomyelitis, it is still a consideration. Soft tissue component of this infection is apparently improving considerably. Wound cultures grew methicillin-sensitive Staph aureus. An NELL showed abnormal left ankle brachial index. 2. Type 2 diabetes with peripheral neuropathy. 3. Morbid obesity. RECOMMENDATIONS: We will stop his vancomycin and Levaquin and start Ancef 2 g every 8 hours to continue on while he is here and then Keflex 500 mg by mouth 6 times a day for 4 weeks. We will follow closely. I discussed with him the options would be to start IV antibiotics now. In the event that there is an osteomyelitis, it will be cured more quickly or change to antibiotic pills and then, if he does not continue to improve, switch back to IV. He preferred to avoid the IV antibiotics at home at this point. HISTORY OF PRESENT ILLNESS: This is an 83-year-old man with diabetes and left foot wound for a couple of months, it has been the lateral forefoot. He followed with a head piece assembler who had debrided some of the callous around it and is doing well and then, over the last couple of weeks, it became little more swollen around it and then in the days before he came into the hospital, had sudden onset of pain, swelling, redness in the left foot up to the ankle. He came to the hospital on 05/31/18, white count was 10. He was afebrile. Was started on vancomycin and Levaquin. Blood cultures were negative. Wound cultures 2 were taken, both growing Staph aureus, methicillin-sensitive. He thinks that the swelling and pain are much improved over the last few days. It does still swell a bit when he is up and on it more, but he is able to bear weight now. He had an MRI while here that showed no osteomyelitis, showed cellulitis, soft tissue swelling. He has not had infection like this in the past. PAST MEDICAL HISTORY: 1. Type 2 diabetes with peripheral neuropathy. 2. Morbid obesity. 3. Atrial fibrillation, on anticoagulation. 4. Obstructive sleep apnea, not treated. 5. Gastroesophageal reflux disease. 6. Benign prostatic hypertrophy. 7. Hypertension. 8. Hyperlipidemia. 9. Osteoarthritis. 10. Asthma. 11. Status post appendectomy. ALLERGIES: PENICILLIN caused hand swelling. MEDICATIONS: 1. Tylenol. 2. Cholecalciferol. 3. Furosemide. 4. Levaquin 750 mg IV daily. 5. Losartan. 6. Metoprolol. 7. Tamsulosin. 8. Warfarin. FAMILY HISTORY: No recurrent infections. No TB. 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 No travel or sick contacts. REVIEW OF SYSTEMS: All negative to a 14-point review of systems except as noted above in the history of present illness. PHYSICAL EXAM: Vital Signs: Temperature of 36, heart rate 60, respiratory rate 20, blood pressure 120/60, oxygen saturation 98% on room air. In general, he is awake, not in distress. Neurologic: He is oriented x3. Follows all commands. Oropharynx: There are no lesions. Neck is supple without mass. Heart is regular rate and rhythm without murmurs, rubs, or gallops. Lungs are clear to auscultation bilaterally. Abdomen: Soft, nontender, nondistended. There are bowel sounds present. Skin: There is no rash or splinter hemorrhages. Musculoskeletal: Left foot, there is diffuse edema. There is no crepitans or fluctuance with mild dorsal tenderness to palpation. There is a lateral superficial ulceration with slight callus and then a plantar lateral forefoot ulceration without expressible fluid. LABORATORY DATA: White blood cell count 8, hemoglobin 12, platelets 196. Creatinine 0.8. CRP on admission was 33, it is down to 10. Please see impressions and recommendations as outlined above, which I have discussed with Dr. Fowler. Thanks for asking me to see Mr. Redmond in consultation. [id number]/[facility] #: [id number] MTDD
[2018-06-07] MEDS ORDERED: Warfarin TAB(*) 2 MG PO SCH (17:00)
[2018-06-07] MEDS ORDERED: ceFAZolin 2 GM PREMIX (*) 2 GM/50 ML BAG IVPB SCH (18:00)
--- NOTE | 2018-06-08 04:57 | DS ---
CC: Dr. Galicia * DISCHARGE SUMMARY: DATE OF ADMISSION: DATE OF DISCHARGE: 06/07/18 HOSPITAL COURSE: This 83-year-old man presented with left foot pain and redness. The history is detailed in admission note. He developed blister on his plantar lateral aspect of his left foot about 5 weeks before admission. There was some swelling 2 or 3 days before admission. He developed redness and more marked swelling and an open area with some serosanguineous drainage. He was initially started on levofloxacin, metronidazole, and vancomycin. Blood cultures were no growth. Wound culture grew out staph aureus sensitive to oxacillin. He remained afebrile and the CRP fell from 33.7 on 05/31/18 to 9.95 on 06/05/18. He had an NELL showing normal right ankle brachial index. There was a low normal left ankle brachial index, left abnormal toe brachial index favoring distal small vessel disease. He was seen in consultation by Dr. Longo. His MRI did not show osteomyelitis. Dr. Akins saw the patient, he has recommended 30 days of oral cephalexin. He will reevaluate the patient during this treatment course. The patient's warfarin is being adjusted while he is here. He received 3 mg daily here, although he used to take 2.5 mg at home. His INR on the day of discharge is 3.49. I have instructed him not to take any warfarin today, tomorrow he will start on warfarin 2 mg daily. He will get an INR on 06/09/18 and 06/12/18. FINAL DIAGNOSES: 1. Diabetic foot infection. 2. Aortic stenosis. 3. Hypomagnesemia. 4. Hypertension. 5. Sleep apnea. DISCHARGE MEDICATIONS: 1. Cephalexin 500 mg q.i.d. for 30 days. 2. Warfarin 2 mg daily at 1700 hours to start 06/08/18. 3. Multivitamin with mineral daily. 4. Ascorbic acid 250 mg daily. 5. Glucosamine three capsules daily. 6. Albuterol inhaler two puffs every 6 hours p.r.n. 7. Ipratropium 0.5 mg by nebulizer b.i.d. p.r.n. 8. Fluticasone/vilanterol 200/25 one inhalation daily. 9. Montelukast 10 mg daily. 10. Metoprolol succinate 100 mg daily. 11. Losartan 50 mg daily. 12. Vitamin D 5000 units daily. 13. Tamsulosin 0.4 mg daily. 14. Furosemide 20 mg daily. 15. Metformin 1000 mg b.i.d. [id number]/[facility] #: [id number] [facility]
== END 2018-06-07 15:20 | disposition home or self-care (01) | DRG 638 ==
LOC: ED 12:31 → MED 15:20
PROVIDERS: ADMIT Student in an Organized Health Care Education/Training Program; ATTEND Internal Medicine
DX: E11.621 Type 2 diabetes mellitus with foot ulcer (principal); L03.116 Cellulitis of left lower limb; I48.91 Unspecified atrial fibrillation; G47.33 Obstructive sleep apnea (adult) (pediatric); J45.909 Unspecified asthma, uncomplicated; I10 Essential (primary) hypertension; E78.5 Hyperlipidemia, unspecified; K21.9 Gastro-esophageal reflux disease without esophagitis; N40.0 Benign prostatic hyperplasia without lower urinary tract symptoms; M19.90 Unspecified osteoarthritis, unspecified site; 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 part of left foot with unspecified severity; I35.0 Nonrheumatic aortic (valve) stenosis; E83.42 Hypomagnesemia; I49.3 Ventricular premature depolarization; E11.628 Type 2 diabetes mellitus with other skin complications; L08.9 Local infection of the skin and subcutaneous tissue, unspecified; E11.42 Type 2 diabetes mellitus with diabetic polyneuropathy; E66.01 Morbid (severe) obesity due to excess calories; Z68.34 Body mass index [BMI] 34.0-34.9, adult; Z91.19 Patient's noncompliance with other medical treatment and regimen; Z88.0 Allergy status to penicillin; Z82.49 Family history of ischemic heart disease and other diseases of the circulatory system; Z80.0 Family history of malignant neoplasm of digestive organs; Z87.891 Personal history of nicotine dependence; Z72.89 Other problems related to lifestyle; Z91.018 Allergy to other foods; Z85.6 Personal history of leukemia; Z80.9 Family history of malignant neoplasm, unspecified; Z79.01 Long term (current) use of anticoagulants; Z79.84 Long term (current) use of oral hypoglycemic drugs
CPT/HCPCS: 36415; 80048; 80053; 80202; 81003; 83605; 83735; 85025; 85610; 85652; 86140; 87040; 87070; 87073; 87077; 87186; 87205; 87640; 87641; 93922; 94640; 99284; A9270-GY; J0690; J3370; J3475; J3490

== ENCOUNTER → 2018-06-14 07:59 | Day surgery (SDC) | payer MEDICARE, OTHER ==
[~2018-06-14 07:59] MED LIST: Heparin 2 UNITS/ML IVPREMIX* 2,000 ML IV ONE; Heparin(*) 1000 UNIT/ML 10 ML VIAL CATH LAB IV ONE; Iohexol 350 (CONTRAST) 200 ML MDV IV ONE; Midazolam* 1 MG/ML 10 ML VIAL (10 MG) ONE; NS 0.9% 1000 ML* 1,000 ML IV SCH; VERAPAMIL 2.5 MG/ML 2 ML VIAL ** 5 mg/2 ml ONE; fentaNYL* 50 MCG/ML 2 ML VIAL (100 MCG VIAL) ONE; nitroGLYCERIN DRIP* 0 MCG/0 ML BTL ONE
[2018-06-14 12:12] VITALS: BP 127/73
--- NOTE | 2018-06-15 01:46 | CATH ---
CC: Dr. Galicia; Dr. Fan Hay; Dr. Jacobo * CATH REPORT: DATE OF PROCEDURE: 06/14/18 - [facility] CATH PRIMARY CARE PHYSICIAN: Dr. Galicia HARDWARE MANAGER: Dr. Fan Hay STRUCTURAL HARDWARE MANAGER: Dr. Jacobo PROCEDURE: Right radial artery access bilateral selective coronary cineangiography. HISTORY: An 83-year-old male with symptomatic severe aortic stenosis referred for coronary angiography pre-TAVR. PROCEDURE ACCESS: Right radial artery sheath 6F slender. MEDICATIONS: 1. Subcu lidocaine. 2. IV Versed. 3. IV Fentanyl. 4. Heparin 3000 units. 5. Verapamil 3 mg IA. DIAGNOSTIC CATHETER: 5F TIG 4, right subclavian artery tortuosity required use of a Wholey wire to access the ascending aorta. HEMODYNAMICS: Initial BP 143/80. Final BP 138/62. ANGIOGRAPHY: Incidentally noted is a circular calcified density in the base of the left ventricle, it corresponds to localized heavy calcification in the mitral annulus seen on echo. There was heavy calcification of the aortic valve leaflets with restricted excursion. RCA. The RCA is not dominant, supplies right ventricular branches. Has no significant stenosis. Left Main. The left main is normal in size and length, has no stenosis. LAD. The LAD is moderate, extends pass the apex, it supplies to moderate diagonal branches, the LAD system has no significant stenosis. Circumflex. The circumflex is large, dominant, with a small first marginal, small to moderate second and third marginal, large posterolateral followed by a smaller posterolateral and a moderate circumflex PDA. The circumflex has no significant stenosis. CONCLUSION: 1. No significant obstructive coronary artery disease. 2. Localized dense mitral annular calcification seen on echo. 3. Successful right radial artery access. [id number]/[facility] #: [id number] [facility]
== END | disposition home or self-care (01) ==
LOC: CHICATH 07:59
PROVIDERS: ATTEND Internal Medicine Cardiovascular Disease
DX: I08.3 Combined rheumatic disorders of mitral, aortic and tricuspid valves (principal); R06.02 Shortness of breath; R42 Dizziness and giddiness; I48.91 Unspecified atrial fibrillation; I45.10 Unspecified right bundle-branch block; I27.20 Pulmonary hypertension, unspecified; G47.33 Obstructive sleep apnea (adult) (pediatric); Z79.01 Long term (current) use of anticoagulants; I10 Essential (primary) hypertension; E78.5 Hyperlipidemia, unspecified; E11.9 Type 2 diabetes mellitus without complications; Z79.84 Long term (current) use of oral hypoglycemic drugs; Z87.891 Personal history of nicotine dependence
CPT/HCPCS: 93454; 99156; 99157; J1644; J2250; J3010

== ENCOUNTER 2018-09-15 20:33 | Emergency (ER) | payer MEDICARE, OTHER ==
--- OUTSIDE RECORDS SUMMARY | 2018-09-15 20:55 | XMS REPORT ---
:1935 External Reference #:[id number] Author Organization [employer] Address [address] [place] [address] [place] [address] Phone [phone] Care Team Providers Name Role Phone Abel Galicia DO Primary Care Physician Unavailable Payers Type Date Identification Numbers Payment Provider Subscriber Medicare Primary Policy Number: [id number] Medicare Gordon Redmond PayID: [id number] [address] [place] [address] Commercial Policy Number: [id number] [employer] Gordon Redmond PayID: [id number] [address] [place] [address] Commercial Effective: 2012 Policy Number: [employer]et[employer]-CPHL Lori Redmond [id number] Expires: 2016 Group Number: [id number] [address] PayID: [id number] [place] [address] Problems Date Description Provider Status Onset: 04/02/2014 Atrial fibrillation Fan Hay M.D., Active DREAD AARON Onset: 04/16/2016 Chronic atrial fibrillation Fan Hay M.D., Active DREAD AARON Onset: 05/12/2018 Aortic valve disorder Fan Hay M.D., Active DREAD AARON Onset: 06/12/2018 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 Onset: 06/12/2018 Cellulitis of left lower limb Mookie Hill MD Active Family History Date Family Member(s) Problem(s) Comments General Cancer General Heart Disease General Hypertension Father Pancreatic Cancer Father due to Pancreatic Cancer () Mother Breathing trouble Mother due to CHF () Mother Heart Disease Siblings 4 1 sister on PAP therapy Social History Type Date Description Comments Marital Status Lives With Occupation Retired Cigarette Use Former Cigarette Smoker Smoked 5 per day for 2 years ETOH Use Occasionally consumes alcohol Smoking Patient is a former smoker Recreational Drug Use Denies Drug Use Daily Caffeine Consumes on average 1 cup of Half strength caffeine, not regular coffee per day daily Exercise Type/Frequency Exercises regularly Stays active throughout the day Allergies, Adverse Reactions, Alerts Date Description Reaction Status Severity Comments 04/02/2014 Penicillin active 04/02/2014 Altace active Severe Caugh Medications Medication Date Status Form Strength Qnty SIG Indications Ordering Provider Prednisone 08/11/ Active Tablets 2.5mg 30tab 1 by mouth J44.9 Chiquita 2017 s every Charo, other day Coumadin / Active Tablets 3mg 1 tab by Unknown 0000 mouth at bedtime. Losartan / Active Tablets 100mg 90tab 1 tablet Unknown Potassium 0000 s daily Vitamin C / Active Capsules 500mg 1 by mouth Unknown 0000 every day Multivitamins / Active daily Unknown 0000 Acetaminophen / Active Tablets 500mg Takes 1 or Unknown 0000 2 tabs by mouth as needed Glucosamine / Active Tablets 500mg 2 daily Unknown 0000 Metoprolol / Active Tablets ER 100mg 1/2 tab by Unknown Succinate ER 0000 24HR mouth every day Albuterol / Active Nebulizer (2.5mg/3ML 1 vial via Unknown Sulfate 0000 ) 0.083% nebulizer 1 time daily Breo Ellipta / Active Aerosol 200-25mcg/ Inhale One Unknown 0000 Inh puff By Mouth Every Day Rinse Mouth After Furosemide / Active Tablets 20mg 1 by mouth Unknown 0000 every day Singulair / Active Tablets 10mg 1 by mouth Unknown 0000 every day Vitamin D3 / Active Capsules 5000Unit 1 by mouth Unknown 0000 every day Proair HFA / Active Aerosol 108(90Base 2 puffs by Unknown 0000 ) mcg/Act mouth every 4 hours as needed Tamsulosin HCL / Active Capsules 0.4mg 1 by mouth Unknown 0000 every day Spiriva / Active Aerosol 1 puff Unknown Respimat 0000 every day Aspirin Adult / Active Tablets DR 81mg 1 by mouth Unknown Low Dose 0000 every day Magnesium / Active Chewtabs 200mg 1 pill by Unknown 0000 mouth each morning Prednisone 04/25/ Hx Tablets 5mg 45tab 2 tabs by J44.9 Chiquita 2018 - s mouth Charo, 06/22/ every day 2018 for 1 week, 1 tab daily-taki ng 1 tab by mouth as of 05/12/18 Prednisone 03/17/ Hx Tablets 10mg 30tab 30mg daily J44.1 Chiquita 2018 - s for 1 Charo, week, 20mg 2017 daily for 1 week, 10 mg daily for 1 week Metoprolol / Hx Tablets ER 50mg 30tab Unknown Succinate ER 0000 - 24HR s 2014 Prednisone / Hx TBPK 10mg (48) as Unknown 0000 - directed - Finishing 2017 on 04/19/2017 Metformin HCL / Hx Tablets 1000mg take one Unknown 0000 - tablet by mouth 2017 twice a day Clindamycin HCL / Hx Capsules 300mg 1 by mouth Unknown 0000 - two times 05/11/ per day 2018 Ipratropium / Hx Solution 0.5-2.5(3) 1 unit Unknown [place]/Albuter 0000 - mg/3ML every 12 ol Sulfate 06/22/ hours as 2018 needed Prednisone / Hx Tablets 5mg 1 by mouth Unknown 0000 - every 08/11/ other day 2018 Medications Administered in Office Medication Date Status Form Strength Qnty SIG Indications Ordering Provider Inj, Administered Injection Fan Stevens Regadenoson, 015 Satnam, 0.1 MG Manuela, FACAdamaris, FASNC Technetium TC Administered Injection Fan Rodney 99M 015 Philly HayofManuela pina, FACAdamaris, Per Unit Dose FASNC Up To 40 Millicuries Vital Signs Date Vital Result Comment 08/25/2018 Height 67.25 inches 5'7.25" Heart Rate 60 /min Respiratory Rate 18 /min Body Temperature 97.7 F Pain Level 3 08/11/2018 Height 67.25 inches 5'7.25" Weight 222.25 lb Heart Rate 48 /min BP Systolic Sitting 118 mmHg Rue large cuff BP Diastolic Sitting 52 mmHg Rue large cuff Respiratory Rate 18 /min O2 % BldC Oximetry 95 % On Ra BMI (Body Mass Index) 34.5 kg/m2 08/04/2018 Height 67.25 inches 5'7.25" Heart Rate 52 /min Respiratory Rate 12 /min Body Temperature 97.5 F Pain Level 3 07/07/2018 Height 67.25 inches 5'7.25" Weight 225.50 lb Heart Rate 60 /min irregular BP Systolic Sitting 148 mmHg manual cuff left arm BP Diastolic Sitting 72 mmHg manual cuff left arm BP Systolic Standing 150 mmHg BP Diastolic Standing 76 mmHg Pain Level 0 BMI (Body Mass Index) 35.1 kg/m2 07/04/2018 Height 67.25 inches 5'7.25" Weight 231.00 lb Heart Rate 88 /min Respiratory Rate 20 /min Body Temperature 96.0 F Pain Level 0 BMI (Body Mass Index) 35.9 kg/m2 06/23/2018 Height 67.25 inches 5'7.25" Weight 231.00 lb Heart Rate 68 /min BP Systolic 140 mmHg BP Diastolic 78 mmHg Respiratory Rate 14 /min Pain Level 0 BMI (Body Mass Index) 35.9 kg/m2 06/12/2018 Height 67.25 inches 5'7.25" Weight 231.00 lb Heart Rate 72 /min Respiratory Rate 18 /min Body Temperature 96.4 F Pain Level 0 BMI (Body Mass Index) 35.9 kg/m2 05/12/2018 Height 67.25 inches 5'7.25" Weight 231.00 lb Heart Rate 48 /min slight irregular BP Systolic Sitting 120 mmHg LA Large Cuff BP Diastolic Sitting 64 mmHg LA Large Cuff BP Systolic Standing 116 mmHg LA Large Cuff BP Diastolic Standing 62 mmHg LA Large Cuff Respiratory Rate 20 /min Pain Level 0 O2 % BldC Oximetry 95 % BMI (Body Mass Index) 35.9 kg/m2 04/25/2018 Height 67.25 inches 5'7.25" Weight 228.25 lb Heart Rate 54 /min BP Systolic Sitting 104 mmHg Rue large cuff BP Diastolic Sitting 62 mmHg Rue large cuff Respiratory Rate 22 /min O2 % BldC Oximetry 96 % On Ra BMI (Body Mass Index) 35.5 kg/m2 03/17/2018 Height 67.25 inches 5'7.25" Weight 236.00 lb Heart Rate 52 /min BP Systolic Sitting 108 mmHg BP Diastolic Sitting 62 mmHg Respiratory Rate 14 /min O2 % BldC Oximetry 93 % BMI (Body Mass Index) 36.7 kg/m2 Neck Circumference in inches 18.5 04/18/2017 Height 67.25 inches 5'7.25" Weight 231.00 lb without shoes Heart Rate 60 /min BP Systolic Sitting 110 mmHg Rue lg cuff BP Diastolic Sitting 82 mmHg Rue lg cuff BP Systolic Standing 118 mmHg Rue lg cuff BP Diastolic Standing 60 mmHg Rue lg cuff Respiratory Rate 17 /min BMI (Body Mass Index) 35.9 kg/m2 Ejection Fraction 60-65% date 04/15/17 ECHO 04/16/2016 Height 68 inches 5'8" Weight 236.00 lb with shoes Heart Rate 62 /min BP Systolic Sitting 120 mmHg LA lrg cuff BP Diastolic Sitting 86 mmHg LA lrg cuff BP Systolic Standing 134 mmHg LA lrg cuff BP Diastolic Standing 84 mmHg LA lrg cuff Respiratory Rate 18 /min BMI (Body Mass Index) 35.9 kg/m2 Ejection Fraction 59% 04/14/16 04/16/2015 Height 68 inches 5'8" Weight 239.00 lb w/o shoes Heart Rate 58 /min BP Systolic Sitting 126 mmHg Rue, reg cuff BP Diastolic Sitting 80 mmHg Rue, reg cuff BP Systolic Standing 134 mmHg Rue BP Diastolic Standing 82 mmHg Rue Respiratory Rate 18 /min BMI (Body Mass Index) 36.3 kg/m2 Ejection Fraction 55-60% Visual Ef as of 04/08/15 04/02/2014 Height 68 inches 5'8" Weight 235.00 lb Heart Rate 60 /min BP Systolic Sitting 112 mmHg LA large cuff BP Diastolic Sitting 82 mmHg LA large cuff BP Systolic Standing 110 mmHg LA BP Diastolic Standing 82 mmHg LA Respiratory Rate 16 /min BMI (Body Mass Index) 35.7 kg/m2 Results Test Date Test Result H/L Range Note Xray 07/31/2018 MRI Lower Extremity <pending> Left W/O Laboratory test finding 06/14/2018 Point of Care Glucose 95 mg/dL 70-100 1 CBC Auto Diff 06/09/2018 White Blood Count 7.0 10^3/uL 3.5-10.8 Red Blood Count 4.39 10^6/uL 4.00-5.40 Hemoglobin 13.1 g/dL Low 14.0-18.0 Hematocrit 39 % Low 42-52 Mean Corpuscular Volume 89 fL 80-94 Mean Corpuscular Hemoglobin 30 pg 27-31 Mean Corpuscular HGB Conc 34 g/dL 31-36 Red Cell Distribution Width 15 % 10.5-15 Platelet Count 195 10^3/uL 150-450 Mean Platelet Volume 7.7 um3 7.4-10.4 Abs Neutrophils 4.9 10^3/uL 1.5-7.7 Abs Lymphocytes 1.3 10^3/uL 1.0-4.8 Abs Monocytes 0.6 10^3/uL 0-0.8 Abs Eosinophils 0.1 10^3/uL 0-0.6 Abs Basophils 0.1 10^3/uL 0-0.2 Abs Nucleated RBC 0 10^3/uL Granulocyte % 70.1 % 38-83 Lymphocyte % 19.3 % Low 25-47 Monocyte % 8.6 % High 0-7 Eosinophil % 1.2 % 0-6 Basophil % 0.8 % 0-2 Nucleated Red Blood Cells % 0 Basic Metabolic Panel 05/29/2018 Sodium 133 mmol/L Low 135-145 Potassium 4.5 mmol/L 3.5-5.0 Chloride 99 mmol/L Low 101-111 Co2 Carbon Dioxide 25 mmol/L 22-32 Anion Gap 9 mmol/L 2-11 Glucose 131 mg/dL High 70-100 Blood Urea Nitrogen 22 mg/dL 6-24 Creatinine 0.92 mg/dL 0.67-1.17 BUN/Creatinine Ratio 23.9 High 8-20 Calcium 9.3 mg/dL 8.6-10.3 Egfr Non- 78.6 >60 Egfr 95.1 >60 2 1 Front Counter Attendant: [id number] 2 Because ethnic data is not always readily available, this report includes an eGFR for both -Americans and non- Americans. The National Kidney Disease Education Program (NKDEP) does not endorse the use of the MDRD equation for patients that are not between the ages of 18 and 70, are , have extremes of body size, muscle mass, or nutritional status, or are non- or non-. According to the National Kidney Foundation, irrespective of diagnosis, the stage of the disease is based on the level of kidney function: Stage Description GFR(mL/min/1.73 m(2)) 1 Kidney damage with normal or decreased GFR 90 2 Kidney damage with mild decrease in GFR 60-89 3 Moderate decrease in GFR 30-59 4 Severe decrease in GFR 15-29 5 Kidney failure <15 (or dialysis) Procedures Date CPT Code Description Status 08/23/2018 69495 Removal Devitalization Tissue Wound Less Than Equal 20 Completed Square CM 08/16/2018 89347 Removal Devitalization Tissue Wound Less Than Equal 20 Completed Square CM 07/19/2018 54113 ECHO Transthoracic, Real-Time 2D With Doppler And Color Completed Flow 07/19/2018 25426 ECHO Transthoracic, Real-Time 2D With Doppler And Color Completed Flow 07/12/2018 60722 EKG Tracing & Interpretation Completed 07/07/2018 70294 EKG Tracing & Interpretation Completed 06/23/2018 55549 Pare Hyperkeratotic Lesion Singl Completed 06/14/2018 34656 Cath PLMT&NJX L Ventriculog Img S&I Completed 05/12/2018 38150 EKG Tracing & Interpretation Completed 05/08/2018 10258 ECHO Transthoracic, Real-Time 2D With Doppler And Color Completed Flow 05/08/2018 71987 ECHO Transthoracic, Real-Time 2D With Doppler And Color Completed Flow 04/25/2018 72179 Pulmonary Function><Bronchodil Completed 04/25/2018 97515 Plethysmography Determination Lung Volumes & Per Airway Completed Resist 04/25/2018 27786 Diffusing Capacity Completed 04/18/2017 20318 EKG Tracing & Interpretation Completed 04/15/2017 54569 ECHO Transthoracic, Real-Time 2D With Doppler And Color Completed Flow 04/16/2016 72200 EKG Tracing & Interpretation Completed 04/14/2016 49439 ECHO Transthoracic, Real-Time 2D With Doppler And Color Completed Flow 04/08/2015 81743 ECHO Transthoracic, Real-Time 2D With Doppler And Color Completed Flow 03/24/2015 61686 Stress Test Completed 03/24/2015 82019 Myocardial Perfusion Imaging Tomographic (Spect) Completed Multiple Studies 04/02/2014 78398 EKG Tracing & Interpretation Completed 03/27/2014 56584 ECHO Transthoracic, Real-Time 2D With Doppler And Color Completed Flow 03/20/2013 59071 EKG Tracing & Interpretation Completed 03/16/2013 30079 ECHO Transthoracic, Real-Time 2D With Doppler And Color Completed Flow Encounters Type Date Location Provider CPT E/M Dx Office Visit 08/16/2018 [facility] Tyrone Goldman, 02709 E11.621 9:30a [facility] Office Visit 08/11/2018 Pulmon[place] [address] J44.9 10:45a [facility] J45.909 E66.09 G47.33 Office Visit 08/04/2018 9:15a [place] [address] L97.529 C.M.A. E11.621 Office Visit 07/07/2018 10:15a Cardiology Services Of Fan Hay, [address] [facility] AT [facility], [facility] I48.2 Z79.01 Office Visit 07/04/2018 9:30a [facility] [address] E11.621 C.M.A. L03.116 Office Visit 06/23/2018 9:15a [facility] [address] E11.621 C.M.A. L03.116 Office Visit 06/12/2018 10:30a [place] [address] L03.116 C.M.A. E11.621 Office Visit 06/07[facility]2018 [facility] [address]74 E11.621 Infectious Diseases Manuela Pool L97.529 L03.116 E11.40 Office Visit 06/07/2018 12:06p [facility], Buzz Fowler, 34386 E11.621 Hospitalists Manuela L97.529 L03.116 E83.42 Office Visit 06/06/2018 12:02p [facility], Buzz Fowler, 76711 E11.621 Hospitalists Manuela L97.529 L03.116 E83.42 Office Visit 06/06/2018 3:13p Orthopedic Services Of KO Smith 63377 E11.621 C.M.A. L97.529 Office Visit 06/05/2018 12:02p [facility], Buzz Fowler, 64642 E11.621 Hospitalists Manuela L97.529 L03.116 Office Visit 06/05/2018 3:13p [facility] Services Of KO Smith 69355 E11.621 C.M.A. L97.529 Office Visit 06/04/2018 3:12p [place] [address] E11.40 C.M.A. L03.116 Office Visit 06/04/2018 [place] Chuck Carvalho, 88409 E11.621 12:02p Assoc,pc [employer] Hospitalists L97.529 L03.116 I10 Office Visit 06/03/2018 12:01p [place] Chuck Mckinney, 65964 E11.621 Assoc,pc Hospitalists DANCE PROFESSOR L97.529 L03.116 M79.672 Office Visit 06/02/2018 12:01p [place] Chuck Mckinney, 18140 E11.621 Assoc,pc Hospitalists DANCE PROFESSOR L97.529 L03.116 E83.42 Office Visit 06/02/2018 3:12p [facility] [address] E11.40 C.M.A. L03.116 Office Visit 06/01/2018 12:00p [place] Chuck Mckinney, 75457 E11.621 Assoc,pc Hospitalists DANCE PROFESSOR L97.529 L03.116 E83.42 Office Visit 05/31/2018 12:00p [place] Chuck Mckinney, 36808 L97.529 Assoc,pc Hospitalists DANCE PROFESSOR E11.621 M79.672 L03.116 Office Visit 05/12/2018 11:30a Cardiology Services Of Fan Hay, 62881 I35.0 [employer] [facility] I48.2 I27.20 Office Visit 04/25/2018 1:45p [facility] [place] [address] [facility] J45.909 G47.33 E66.01 Office Visit 03/17/2018 8:00a [facility] [place] [address] [facility] H26.9 J44.1 J45.909 G47.33 E66.09 Z68.36 Office Visit 01/12/2018 10:55a [facility] [address] J11.1 Hospitalists Dotti, DANCE PROFESSOR J44.1 I48.91 I10 Office Visit 01/11/2018 10:55a [facility] [address] J11.1 Hospitalists Dotti, DANCE PROFESSOR J44.1 I48.91 I10 Office Visit 01/10/2018 10:54a [facility] [address] J11.1 Hospitalists Dotti, DANCE PROFESSOR J44.1 I48.91 I10 Office Visit 01/09/2018 10:53a [facility] [address] J11.1 Hospitalists Sanjana, DANCE PROFESSOR J44.1 E11.8 I48.91 Office Visit 01/08/2018 10:51a [facility], KO Rascon [address]3072 J11.1 Hospitalists I10 I48.91 E11.8 Office Visit 01/07/2018 10:50a [facility], KO Rascon 07467 J11.1 Hospitalists I10 I48.91 E11.8 Office Visit 01/06/2018 10:49a [facility], Iggy Whitney, 57762 J11.1 Hospitalists N.P. I10 I48.91 E11.8 Office Visit 04/18/2017 9:45a [employer] [facility]iology Of Fan Stevens Hay, 93632 I48.2 Divya Roy, KELSEA, [facility] Office Visit 04/16/2016 8:45a [employer] [facility]iology Of Fan Stevens Hay, 42718 I48.2 Divya Roy, FAC, [facility] Office Visit 04/16/2015 10:45a [employer] Cardiology Of Fan Stevens Hay, 97026 427.31 Divya Roy, FACAdamaris, [facility] Office Visit 04/02/2014 1:45p [employer] [facility]iology Of Fan Stevens [place], 54734 427.31 Divya Roy, FAC, [facility] Office Visit 03/20/2013 8:45a [employer] Cardiology Of Fan Stevens Hay, 31430 394.1 Divya Roy, GALEN, [facility] 427.31 Plan of Care Future Appointment(s):09/22/2018 9:45 am - [facility]08[facility]2019 10:45 am - Chiquita Mancilla MD at Pulmonology And Sleep Services [facility]08/25/2018 - Mookie Hill MDE11.621 Type 2 diabetes mellitus with foot ulcerFollow up:Follow Up: 4 weeks
[2018-09-15 22:21] LABS: ABS Basophils 0 10^3/ul (0-0.2); ABS Eosinophils 0.1 10^3/ul (0-0.6); ABS Lymphocytes 1.2 10^3/ul (1.0-4.8); ABS Monocytes 0.8 10^3/ul (0-0.8); ABS Neutrophils 5.3 10^3/ul (1.5-7.7); ABS Nucleated RBC 0 10^3/ul; Eosinophil % 1.5 % (0-6); Hematocrit 38 % (42-52); Hemoglobin 12.6 g/dl (14.0-18.0); Lymphocyte % 16.2 % (25-47); Mean Corpuscular HGB Conc 33 g/dl (31-36); Mean Corpuscular Hemoglobin 30 pg (27-31); Mean Corpuscular Volume 89 fL (80-94); Mean Platelet Volume 7.6 fL (7.4-10.4); Nucleated Red Blood Cells % 0; Platelet Count 134 10^3/ul (150-450); Red Blood Count 4.27 10^6/ul (4.00-5.40); Red Cell Distribution Width 16 % (10.5-15); White Blood Count 7.5 10^3/ul (3.5-10.8)
[2018-09-15 22:53] LABS: EGFR Non-African American 69.7 (>60)
--- NOTE | 2018-09-16 00:26 | RAD ---
EXAM: US Left Duplex Lower Extremity Veins, Limited EXAM DATE/TIME: 09/15/2018 11:49 PM CLINICAL HISTORY: 83 years old, male; Pain; Leg, lower; Left; Additional info: Left le pain, swelling TECHNIQUE: Real-time Duplex ultrasound of the Left Lower Extremity with 2-D ko scale, color Doppler flow and spectral waveform analysis. Limited exam focused on the left lower extremity veins. COMPARISON: No relevant prior studies available. FINDINGS: Left deep veins: Normal. The common femoral, femoral and popliteal veins are patent without thrombus. Normal compressibility, augmentation response and Doppler waveforms. Left superficial veins: Normal. Saphenofemoral junction is patent without thrombus. Soft tissues: Normal. IMPRESSION: No acute findings. No evidence of deep vein thrombosis. To contact [facility] with a general question: [facility] - [phone] For direct physician to physician contact: Physician Hotline - [phone] [facility] ([facility] Facility ID #[id number])
--- NOTE | 2018-09-16 01:44 | ED ---
Skin Complaint - HPI Summary HPI Summary: Patient with history of chronic diabetic ulcer on the bottom surface of ball of fifth toe of left foot complains of increase in redness of left foot and ankle with positive swelling. Patient states wound has been present for 6 months and he is just wanted to be sure it was not getting worse. Patient states minimal pain, No pain with ambulation. Denies fever, cough, sore throat, CP, N/V/D, abdominal pain, change in urine, change in BM. Last had course of antibiotics for wound in June. Followed by Dr. Goldman for wound care, last seen by a wound care this past Tuesday. CTA aorta with runoff performed Tuesday, negative for osteomyelitis, positive for partial arterial occlusions. Medical history is DM, HTN, leukemia, HDL, COPD, A. fib. Patient being evaluated currently by Dr. Vásquez for interventional radiology - History of Current Complaint Chief Complaint: EDExtremityLower Time Seen by Provider: 09/15/18 21:51 Stated Complaint: LT FOOT SWELLING Hx Obtained From: Patient Onset/Duration: Started Weeks Ago Skin Exposure Onset/Duration: Weeks Ago Timing: Constant Onset Severity: Mild Current Severity: Mild Pain Intensity: 3 Pain Scale Used: 0-10 Numeric Skin Location: Discrete, Foot Aggravating Symptom(s): Touch - Additional Pertinent History Primary Care Physician: [id number] - Allergy/Home Medications Allergies/Adverse Reactions: Allergies Allergy/AdvReac Type Severity Reaction Status Date / Time nut - unspecified Allergy Swelling Verified 06/13/18 17:23 Of Face,Lips,& Throat Penicillins Allergy Swelling Verified 06/13/18 17:23 ramipril [From Altace] Allergy Coughing Verified 06/13/18 17:23 PMH/Surg Hx/FS Hx/Imm Hx Endocrine/Hematology History: Reports: Hx Diabetes - type II Denies: Hx Thyroid Disease Cardiovascular History: Reports: Hx Hypertension, Other Cardiovascular Problems/ Disorders - On list for TAVR Denies: Hx Pacemaker/ICD Respiratory History: Reports: Hx Asthma Denies: Hx Chronic Obstructive Pulmonary Disease (COPD) GI History: Denies: Hx Ulcer History: Denies: Hx Renal Disease Sensory History: Reports: Hx Contacts or Glasses Denies: Hx Hearing Aid Opthamlomology History: Reports: Hx Contacts or Glasses Psychiatric History: Denies: Hx Panic Disorder - Cancer History Cancer Type, 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 03/2018 CATARACT. Appendectomy,. nose surgery - DEVIATED SEPTUM. Rt shoulder torn rotator cuff repair Infectious Disease History: No Infectious Disease History: Denies: Hx Hepatitis, Hx Human Immunodeficiency Virus (HIV), Traveled Outside the [place] in Last 30 Days - Family History Known Family History: Positive: Hypertension, Other - Cancer - Social History Alcohol Use: Occasionally Alcohol Amount: LAST DRINK TUESDAY NIGHT Substance Use Type: Reports: None Smoking Status (MU): Former Smoker Review of Systems Constitutional: Negative Eyes: Negative ENT: Negative Cardiovascular: Negative Respiratory: Negative Gastrointestinal: Negative Genitourinary: Negative Musculoskeletal: Negative Skin: Other Neurological: Negative Psychological: Normal All Other Systems Reviewed And Are Negative: Yes Physical Exam - Summary Physical Exam Summary: (Clean and dry. No follow-up with her. Some mild swelling to left ankle. Mild erythema and extra warmth to left ankle. PMS intact distally. Triage Information Reviewed: Yes Vital Signs On Initial Exam: Initial Vitals Temp Pulse Resp BP Pulse Ox 97.9 F 58 20 167/88 95 09/15/18 20:36 09/15/18 20:36 09/15/18 20:36 09/15/18 20:36 09/15/18 20:36 Vital Signs Reviewed: Yes Appearance: Positive: Well-Appearing Skin: Positive: Warm Head/Face: Positive: Normal Head/Face Inspection Eyes: Positive: Normal Neck: Positive: Supple Respiratory/Lung Sounds: Positive: Clear to Auscultation Cardiovascular: Positive: Normal Abdomen Description: Positive: Nontender Musculoskeletal: Positive: Normal Neurological: Positive: Normal Psychiatric: Positive: Normal - Sana Coma Scale Best Eye Response: 4 - Spontaneous Best Motor Response: 6 - Obeys Commands Best Verbal Response: 5 - Oriented Coma Scale Total: 15 Diagnostics - Vital Signs Vital Signs Temp Pulse Resp BP Pulse Ox 09/16/18 01:13 56 21 153/79 95 09/16/18 01:00 51 25 96 09/16/18 00:44 49 19 167/87 09/16/18 00:13 52 23 156/88 93 09/16/18 00:00 54 17 96 09/15/18 23:55 52 17 160/71 95 09/15/18 23:35 66 18 133/61 92 09/15/18 23:00 51 27 95 09/15/18 22:58 54 22 95 09/15/18 22:43 65 18 144/86 94 09/15/18 22:13 66 21 148/74 95 09/15/18 22:00 66 24 95 09/15/18 21:43 53 13 169/73 95 09/15/18 21:40 5 09/15/18 20:36 97.9 F 58 20 167/88 95 - Laboratory Lab Results: Lab Results 09/15/18 09/15/18 09/15/18 Range/Units 22:08 22:08 22:08 WBC 7.5 (3.5-10.8) 10^3/ul RBC 4.27 (4.00-5.40) 10^6/ul Hgb 12.6 L (14.0-18.0) g/dl Hct 38 L (42-52) % MCV 89 (80-94) fL MCH 30 (27-31) pg MCHC 33 (31-36) g/dl RDW 16 H (10.5-15) % Plt Count 134 L (150-450) 10^3/ul MPV 7.6 (7.4-10.4) fL Neut % (Auto) 71.4 (38-83) % Lymph % (Auto) 16.2 L (25-47) % [place] % (Auto) 10.8 H (0-7) % Eos % (Auto) 1.5 (0-6) % Baso % (Auto) 0.1 (0-2) % Absolute Neuts (auto) 5.3 (1.5-7.7) 10^3/ul Absolute Lymphs (auto) 1.2 (1.0-4.8) 10^3/ul Absolute Monos (auto) 0.8 (0-0.8) 10^3/ul Absolute Eos (auto) 0.1 (0-0.6) 10^3/ul Absolute Basos (auto) 0 (0-0.2) 10^3/ul Absolute Nucleated RBC 0 10^3/ul Nucleated RBC % 0 Sodium 131 L (135-145) mmol/L Potassium 4.5 (3.5-5.0) mmol/L Chloride 98 L (101-111) mmol/L Carbon Dioxide 28 (22-32) mmol/L Anion Gap 5 (2-11) mmol/L BUN 21 (6-24) mg/dL Creatinine 1.02 (0.67-1.17) mg/dL Est GFR ( Amer) 84.4 (>60) Est GFR (Non-Af Amer) 69.7 (>60) BUN/Creatinine Ratio 20.6 H (8-20) Glucose 95 (70-100) mg/dL Lactic Acid 1.1 (0.5-2.0) mmol/L Calcium 9.3 (8.6-10.3) mg/dL Total Bilirubin 1.30 H (0.2-1.0) mg/dL AST 36 (13-39) U/L ALT 30 (7-52) U/L Alkaline Phosphatase 100 (34-104) U/L C-Reactive Protein 4.02 (<8.01) mg/L B-Natriuretic Peptide (<=100) pg/mL Total Protein 7.0 (6.4-8.9) g/dL Albumin 4.1 (3.2-5.2) g/dL Globulin 2.9 (2-4) g/dL Albumin/Globulin Ratio 1.4 (1-3) 09/15/ Range/Units 22:08 WBC (3.5-10.8) 10^3/ul RBC (4.00-5.40) 10^6/ul Hgb (14.0-18.0) g/dl Hct (42-52) % MCV (80-94) fL MCH (27-31) pg MCHC (31-36) g/dl RDW (10.5-15) % Plt Count (150-450) 10^3/ul MPV (7.4-10.4) fL Neut % (Auto) (38-83) % Lymph % (Auto) (25-47) % [place] % (Auto) (0-7) % Eos % (Auto) (0-6) % Baso % (Auto) (0-2) % Absolute Neuts (auto) (1.5-7.7) 10^3/ul Absolute Lymphs (auto) (1.0-4.8) 10^3/ul Absolute Monos (auto) (0-0.8) 10^3/ul Absolute Eos (auto) (0-0.6) 10^3/ul Absolute Basos (auto) (0-0.2) 10^3/ul Absolute Nucleated RBC 10^3/ul Nucleated RBC % Sodium (135-145) mmol/L Potassium (3.5-5.0) mmol/L Chloride (101-111) mmol/L Carbon Dioxide (22-32) mmol/L Anion Gap (2-11) mmol/L BUN (6-24) mg/dL Creatinine (0.67-1.17) mg/dL Est GFR ( Amer) (>60) Est GFR (Non-Af Amer) (>60) BUN/Creatinine Ratio (8-20) Glucose (70-100) mg/dL Lactic Acid (0.5-2.0) mmol/L Calcium (8.6-10.3) mg/dL Total Bilirubin (0.2-1.0) mg/dL AST (13-39) U/L ALT (7-52) U/L Alkaline Phosphatase (34-104) U/L C-Reactive Protein (<8.01) mg/L B-Natriuretic Peptide 280 H (<=100) pg/mL Total Protein (6.4-8.9) g/dL Albumin (3.2-5.2) g/dL Globulin (2-4) g/dL Albumin/Globulin Ratio (1-3) Result Diagrams: 09/15/18 22:08 09/15/18 22:08 Lab Statement: Any lab studies that have been ordered have been reviewed, and results considered in the medical decision making process. Course/Dx - Course Course Of Treatment: Patient with history of chronic diabetic ulcer on the bottom surface of ball of fifth toe of left foot complains of increase in redness of left foot and ankle with positive swelling. Patient states wound has been present for 6 months and he is just wanted to be sure it was not getting worse. Patient states minimal pain, No pain with ambulation. Denies fever, cough, sore throat, CP, N/V/D, abdominal pain, change in urine, change in BM. Last had course of antibiotics for wound in June. Followed by Dr. Goldman for wound care, last seen by a wound care this past Tuesday. CTA aorta with runoff performed Tuesday, negative for osteomyelitis, positive for partial arterial occlusions. Medical history is DM, HTN, leukemia, HDL, COPD, A. fib. Patient being evaluated currently by Dr. Vásquez for interventional radiology. Physical exam: Wound Clean and dry. No follow-up with her. Some mild swelling to left ankle. Mild erythema and extra warmth to left ankle. PMS intact distally. Vital signs within normal limits. Labs at baseline. Chest x-ray stable. X-ray of foot and ankle neg, no indication of osteomyelitis. Patient given Keflex. Follow-up with care. - Diagnoses Provider Diagnoses: Abscess or cellulitis of foot Discharge - Sign-Out/Discharge Documenting (check all that apply): Patient Departure - Discharge Plan Condition: Stable Disposition: HOME Prescriptions: Cephalexin CAP* [Keflex CAP*] 500 mg PO TID 10 Days #30 cap Patient Education Materials: Cellulitis (ED) Referrals: Abel Galicia DO [Primary Care Provider] - Additional Instructions: Take antibiotics as directed. Follow-up with your wound care doctor. Return to the ED for any new or worsening symptoms - Billing Disposition and Condition Condition: STABLE Disposition: Home
[2018-09-16] MEDS ORDERED: Cephalexin CAP* 500 MG PO ONE (01:59)
[2018-09-16] MEDS ORDERED: Cephalexin CAP* 500 MG ONE (02:01)
[2018-09-16 02:20] VITALS: BP 174/89
--- NOTE | 2018-09-16 10:02 | RAD ---
INDICATION: Left foot and ankle pain in a patient with a chronic distal lateral left foot wound COMPARISON: Left foot radiograph dated August 26, 2016 TECHNIQUE: 3 views of the left foot and 3 views of the left ankle were obtained. FINDINGS: The left ankle joint is intact and anatomically aligned. There is no evidence of fracture or dislocation. Degenerative changes of the left foot include sclerotic change of the intertarsal and tarsometatarsal joints. There is valgus deformity of the metatarsophalangeal joints most severe at the left great toe measuring 56 degrees. There is soft tissue swelling overlying the lateral aspect of the left small toe metatarsal phalangeal joint corresponding to the location of the patient's wound. There are no radiographic signs of osteomyelitis. There is coarse atherosclerotic calcification of the lower infrapopliteal arteries extending into the arteries of the foot. IMPRESSION: 1. DEGENERATIVE CHANGES OF THE LEFT FOOT INCLUDING HALLUX VALGUS DEFORMITY DESCRIBED ABOVE. 2. NO DEFINITE RADIOGRAPHIC SIGNS OF OSTEOMYELITIS. 3. COARSELY CALCIFIED ATHEROSCLEROSIS OF THE VISUALIZED ARTERIES. R0
--- NOTE | 2018-09-16 10:11 | RAD ---
INDICATION: Left foot pain COMPARISON: Most recent comparison chest x-rays dated January 06, 2018 TECHNIQUE: Single AP portable view of the chest was obtained. FINDINGS: Image quality is compromised due to the relative inferiority of a portable chest x-ray. The patient's prosthetic aortic valve is visible. There is a mild degree of cardiomegaly. The heart and mediastinum otherwise exhibit normal contours. The lungs are grossly clear. There is no evidence of a large pleural effusion. Visualized bones are normal for the patient's age. IMPRESSION: Mild cardiomegaly and a patient with a prosthetic aortic valve.
== END 2018-09-16 02:24 | disposition home or self-care (01) ==
LOC: ED 20:33
DX: L03.116 Cellulitis of left lower limb (principal); E11.9 Type 2 diabetes mellitus without complications; I10 Essential (primary) hypertension; Z87.891 Personal history of nicotine dependence
CPT/HCPCS: 36415; 71045; 80053; 83605; 83880; 85025; 86140; 87040; 99283; A9270-GY

== ENCOUNTER → 2018-10-26 10:52 | Day surgery (SDC) | payer MEDICARE, OTHER ==
[~2018-10-26 10:52] MED LIST changes: +Flumazenil* 0.1 MG/ML 5 ML MDV ONE; -Heparin(*) 1000 UNIT/ML 10 ML VIAL CATH LAB IV ONE; +Iodixanol 320 (CONTRAST) 100 ML SDV ONE; +LORazepam TAB(*) 1 MG ONE; +Lidocaine 1% INJ* 10 MG/ML 30 ML SDV ONE; -Midazolam* 1 MG/ML 10 ML VIAL (10 MG) ONE; +Midazolam* 1 MG/ML 5 ML VIAL (5 MG) ONE; -NS 0.9% 1000 ML* 1,000 ML IV SCH; +Naloxone* 0.4 MG/ML 1 ML VIAL ONE; -VERAPAMIL 2.5 MG/ML 2 ML VIAL ** 5 mg/2 ml ONE; -fentaNYL* 50 MCG/ML 2 ML VIAL (100 MCG VIAL) ONE; +fentaNYL* 50 MCG/ML 5 ML VIAL (250 MCG VIAL) ONE
[2018-10-26 11:32] LABS: ABS Basophils 0.1 10^3/ul (0-0.2); ABS Eosinophils 0.1 10^3/ul (0-0.6); ABS Lymphocytes 1.2 10^3/ul (1.0-4.8); ABS Monocytes 0.8 10^3/ul (0-0.8); ABS Nucleated RBC 0 10^3/ul; Eosinophil % 1.2 %; Hematocrit 40 % (42-52); Hemoglobin 13.3 g/dl (14.0-18.0); Lymphocyte % 16.8 %; Mean Corpuscular HGB Conc 34 g/dl (31-36); Mean Corpuscular Hemoglobin 30 pg (27-31); Mean Corpuscular Volume 89 fL (80-94); Mean Platelet Volume 8.4 fL (7.4-10.4); Nucleated Red Blood Cells % 0; Platelet Count 135 10^3/ul (150-450); Red Blood Count 4.45 10^6/ul (4.00-5.40); Red Cell Distribution Width 15 % (10.5-15); White Blood Count 7.1 10^3/ul (3.5-10.8)
[2018-10-26 11:37] LABS: INR 2.66 (0.77-1.02)
[2018-10-26 18:09] VITALS: BP 149/73
== END | disposition home or self-care (01) ==
LOC: CHICATH 10:52
PROVIDERS: ATTEND Radiology Diagnostic Radiology
DX: I70.262 Atherosclerosis of native arteries of extremities with gangrene, left leg (principal); I25.10 Atherosclerotic heart disease of native coronary artery without angina pectoris; E11.9 Type 2 diabetes mellitus without complications; I48.91 Unspecified atrial fibrillation; Z87.891 Personal history of nicotine dependence
CPT/HCPCS: 36415; 75625; 76937; 80053; 85025; 85610; 99156; 99157; A9270-GY; C1760; C1769; C1887; C1894; J1644; J2250; J2310; J3010

== ENCOUNTER 2019-02-25 22:52 | Observation (INO) | payer MEDICARE, OTHER ==
--- OUTSIDE RECORDS SUMMARY | 2019-02-25 23:14 | XMS REPORT | Continuity of Care Document ---
:1935 External Reference #:[id number] Author Name Inna Mccoy Care Team Providers Name Role Phone Abel Galicia DO Primary Care Physician Unavailable Payers Date Identification Numbers Payment Provider Subscriber Policy Number: [id number] Medicare Gordon Redmond PayID: [id number] [address] [place] [address] Policy Number: [id number] [facility] Gordon Redmond PayID: [id number] [address] [place] [address] Effective: 2012 Policy Number: [id number] [facility] Lori Redmond Expires: 2016 Group Number: [id number] [address] PayID: [id number] [place] [address] Advance Directives Description No Information Available Problems Date Description Provider Status Onset: 04/02/2014 Atrial fibrillation Fan Hay M.D., Active DREAD AARON Onset: 04/16/2016 Chronic atrial fibrillation Fan Hay M.D., Active DREAD AARON Onset: 05/12/2018 Aortic valve disorder Fan Hay M.D., Active DREAD AARON Onset: 06/12/2018 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 Onset: 06/12/2018 Cellulitis of left lower limb Mookie Hill MD Active Onset: 09/13/2018 Atherosclerosis of arteries of the Tru Hancock M.D. Active extremities Family History Date Family Member(s) Observation Comments General Cancer General Heart Disease General Hypertension Father Pancreatic Cancer Father due to Pancreatic Cancer () Mother Breathing trouble Mother due to CHF () Mother Heart Disease Siblings 4 1 sister on PAP therapy Social History Type Date Description Comments Sex Unknown Marital Status Lives With Occupation Retired Tobacco Use Start: Unknown Former Cigarette Smoker Smoked 5 per day for End: Unknown 2 years Smoking Status Reviewed: 02/08/19 Former Cigarette Smoker Smoked 5 per day for 2 years ETOH Use Occasionally consumes alcohol Tobacco Use Start: Unknown Patient is a former End: Unknown smoker Recreational Drug Use Denies Drug Use Exercise Type/Frequency Exercises regularly Stays active throughout the day Allergies, Adverse Reactions, Alerts Date Description Reaction Status Severity Comments 04/02/2014 Penicillin Active 04/02/2014 Altace Active Severe Caugh Medications Medication Date Status Form Strength Qnty SIG Indications Ordering Provider Coumadin / Active Tablets 3mg 1 tab [...] by mouth Unknown 0000 every day Spiriva 00/ Active Aerosol 1 puff Unknown Respimat 0000 every day Aspirin Adult / Active Tablets DR 81mg 1 by mouth Unknown Low Dose 0000 every day Magnesium / Active Chewtabs 200mg 1 pill by Unknown 0000 mouth each morning Prednisone 00/ Active TBPK 10mg (48) 1 by mouth Unknown 0000 every day Terbinafine HCL / Active Tablets 250mg 1 by mouth Unknown 0000 every day Prednisone 08/11/ Hx Tablets 2.5mg 30tab 1 by mouth J44.9 Chiquita 2018 - s every Charo, 02/07/ other day MD 2018 Prednisone 04/25/ Hx Tablets 5mg 45tab 2 [...] take one Unknown 0000 - tablet by 06/22/ mouth 2017 twice a day Clindamycin HCL / Hx Capsules 300mg 1 by mouth Unknown 0000 - two times 05/11/ per day 2017 Ipratropium / Hx Solution 0.5-2.5(3) 1 unit Unknown [place]/Albuter 0000 - mg/3ML every 12 ol Sulfate 06/22/ hours as 2018 needed Prednisone 00/ Hx Tablets 5mg 1 by mouth Unknown 0000 - every 08/11/ other day 2018 Medications Administered in Office Medication Date Status Form Strength Qnty SIG Indications Ordering Provider Inj, Administered Injection Fan Stevens Regadenoson, 015 Satnam, 0.1 MG Manuela, FACAdamaris, FASNC Technetium TC Administered Injection Fan Stevens 99M 015 Corinna Hay M.D., FACAdamaris, Per Unit Dose FASMARTIN Up To 40 Millicuries Immunizations Description No Information Available Vital Signs Date Vital Result Comment 02/08/2019 10:28am Height 69 inches 5'9" Weight 230.12 lb Heart Rate 113 /min BP Systolic Sitting 114 mmHg large adult cuff left arm BP Diastolic Sitting 68 mmHg large adult cuff left arm O2 % BldC Oximetry 91 % at rest on room air BMI (Body Mass Index) 34.0 kg/m2 09/29/2018 9:53am Height 69 inches 5'9" Weight 220.00 lb Heart Rate 76 /min Respiratory Rate 18 /min Body Temperature 97.6 F Pain Level 4 BMI (Body Mass Index) 32.5 kg/m2 09/22/2018 9:39am Height 69 inches 5'9" Weight 220.00 lb Heart Rate 56 /min Respiratory Rate 17 /min Body Temperature 95.8 F Pain Level 3 BMI (Body Mass Index) 32.5 kg/m2 09/13/2018 4:58pm Height 69 inches 5'9" Weight 220.00 lb Heart Rate 44 /min BP Systolic 142 mmHg BP Diastolic 79 mmHg Body Temperature 96.8 F BMI (Body Mass Index) 32.5 kg/m2 09/13/2018 4:58pm Height 69 inches 5'9" Weight 220.00 lb Heart Rate 44 /min BP Systolic 142 mmHg BP Diastolic 79 mmHg Respiratory Rate 20 /min Body Temperature 96.8 F BMI (Body Mass Index) 32.5 kg/m2 08/25/2018 8:53am Height 67.25 inches 5'7.25" Heart Rate 60 /min Respiratory Rate 18 /min Body Temperature 97.7 F Pain Level 3 08/11/2018 10:23am Height 67.25 inches 5'7.25" Weight 222.25 lb Heart Rate 48 /min BP Systolic Sitting 118 mmHg Rue large cuff BP Diastolic Sitting 52 mmHg Rue large cuff Respiratory Rate 18 /min O2 % BldC Oximetry 95 % On Ra BMI (Body Mass Index) 34.5 kg/m2 08/04/2018 9:14am Height 67.25 inches 5'7.25" Heart Rate 52 /min Respiratory Rate 12 /min Body Temperature 97.5 F Pain Level 3 07/07/2018 9:49am Height 67.25 inches 5'7.25" Weight 225.50 lb Heart Rate 60 /min irregular BP Systolic Sitting 148 mmHg manual cuff left arm BP Diastolic Sitting 72 mmHg manual cuff left arm BP Systolic Standing 150 mmHg BP Diastolic Standing 76 mmHg Pain Level 0 BMI (Body Mass Index) 35.1 kg/m2 07/04/2018 9:37am Height 67.25 inches 5'7.25" Weight 231.00 lb Heart Rate 88 /min Respiratory Rate 20 /min Body Temperature 96.0 F Pain Level 0 BMI (Body Mass Index) 35.9 kg/m2 06/23/2018 9:21am Height 67.25 inches 5'7.25" Weight 231.00 lb Heart Rate 68 /min BP Systolic 140 mmHg BP Diastolic 78 mmHg Respiratory Rate 14 /min Pain Level 0 BMI (Body Mass Index) 35.9 kg/m2 06/12/2018 11:21am Height 67.25 inches 5'7.25" Weight 231.00 lb Heart Rate 72 /min Respiratory Rate 18 /min Body Temperature 96.4 F Pain Level 0 BMI (Body Mass Index) 35.9 kg/m2 05/12/2018 11:36am Height 67.25 inches 5'7.25" Weight 231.00 lb [...] BMI (Body Mass Index) 35.9 kg/m2 04/25/2018 1:42pm Height 67.25 inches 5'7.25" Weight 228.25 lb Heart Rate 54 /min BP Systolic Sitting 104 mmHg Rue large cuff BP Diastolic Sitting 62 mmHg Rue large cuff Respiratory Rate 22 /min O2 % BldC Oximetry 96 % On Ra BMI (Body Mass Index) 35.5 kg/m2 03/17/2018 7:29am Height 67.25 inches 5'7.25" Weight 236.00 lb Heart Rate 52 /min BP Systolic Sitting 108 mmHg BP Diastolic Sitting 62 mmHg Respiratory Rate 14 /min O2 % BldC Oximetry 93 % BMI (Body Mass Index) 36.7 kg/m2 Neck Circumference in inches 18.5 04/18/2017 9:13am Height 67.25 inches 5'7.25" Weight 231.00 lb without shoes Heart Rate 60 /min BP Systolic Sitting 110 mmHg Rue lg cuff BP Diastolic Sitting 82 mmHg Rue lg cuff BP Systolic Standing 118 mmHg Rue lg cuff BP Diastolic Standing 60 mmHg Rue lg cuff Respiratory Rate 17 /min BMI (Body Mass Index) 35.9 kg/m2 Ejection Fraction 60-65% date 04/15/17 ECHO 04/16/2016 8:25am Height 68 inches 5'8" Weight 236.00 lb with shoes Heart Rate 62 /min BP Systolic Sitting 120 mmHg LA lrg cuff BP Diastolic Sitting 86 mmHg LA lrg cuff BP Systolic Standing 134 mmHg LA lrg cuff BP Diastolic Standing 84 mmHg LA lrg cuff Respiratory Rate 18 /min BMI (Body Mass Index) 35.9 kg/m2 Ejection Fraction 59% 04/14/16 04/16/2015 10:31am Height 68 inches 5'8" Weight 239.00 lb w/o shoes Heart Rate 58 /min BP Systolic Sitting 126 mmHg Rue, reg cuff BP Diastolic Sitting 80 mmHg Rue, reg cuff BP Systolic Standing 134 mmHg Rue BP Diastolic Standing 82 mmHg Rue Respiratory Rate 18 /min BMI (Body Mass Index) 36.3 kg/m2 Ejection Fraction 55-60% Visual Ef as of 04/08/15 04/02/2014 2:15pm Height 68 inches 5'8" Weight 235.00 lb Heart Rate 60 /min BP Systolic Sitting 112 mmHg LA large cuff BP Diastolic Sitting 82 mmHg LA large cuff BP Systolic Standing 110 mmHg LA BP Diastolic Standing 82 mmHg LA Respiratory Rate 16 /min BMI (Body Mass Index) 35.7 kg/m2 Results Test Date Facility Test Result H/L Range Note Inr/Protime 10/26/2018 [facility] Inr 2.66 High 0.77-1.[address] [place] [address] [phone] CBC Auto Diff 10/26/2018 [facility] White Blood 7.1 10^3/uL N 3.5-10.[address] [place] [address] [phone] Red Blood Count 4.45 10^6/uL N 4.00-5.40 Hemoglobin 13.3 g/dL Low 14.0-18.0 Hematocrit 40 % Low 42-52 Mean Corpuscular Volume 89 fL N 80-94 Mean Corpuscular Hemoglobin 30 pg N 27-31 Mean Corpuscular HGB Conc 34 g/dL N 31-36 Red Cell Distribution Width 15 % N 10.5-15 Platelet Count 135 10^3/uL Low 150-450 Mean Platelet Volume 8.4 fL N 7.4-10.4 Abs Neutrophils 5.0 10^3/uL N 1.5-7.7 Abs Lymphocytes 1.2 10^3/uL N 1.0-4.8 Abs Monocytes 0.8 10^3/uL N 0-0.8 Abs Eosinophils 0.1 10^3/uL N 0-0.6 Abs Basophils 0.1 10^3/uL N 0-0.2 Abs Nucleated RBC 0 10^3/uL Granulocyte % 70.5 % Lymphocyte % 16.8 % Monocyte % 10.8 % Eosinophil % 1.2 % Basophil % 0.7 % Nucleated Red Blood Cells % 0 Comp Metabolic Panel 10/26/2018 [facility] Sodium 133 mmol/L Low 135-145 [address] [place] [address] [phone] Potassium 4.4 mmol/L N 3.5-5.0 Chloride 101 mmol/L N 101-111 Co2 Carbon Dioxide 25 mmol/L N 22-32 Anion Gap 7 mmol/L N 2-11 Glucose 120 mg/dL High 70-100 Blood Urea Nitrogen 24 mg/dL N 6-24 Creatinine 0.76 mg/dL N 0.67-1.17 BUN/Creatinine Ratio 31.6 High 8-20 Calcium 9.8 mg/dL N 8.6-10.3 Total Protein 7.2 g/dL N 6.4-8.9 Albumin 4.3 g/dL N 3.2-5.2 Globulin 2.9 g/dL N 2-4 Albumin/Globulin Ratio 1.5 N 1-3 Total Bilirubin 1.50 mg/dL High 0.2-1.0 Alkaline Phosphatase 102 U/L N 34-104 Alt 27 U/L N 7-52 Ast 31 U/L N 13-39 Egfr Non- 98.0 >60 Egfr 118.5 >60 1 Inr/Protime 10/25/2018 [facility] Inr 2.79 High 0.77-1.02 [address] [place] [address] [phone] Basic Metabolic 10/19/2018 [facility] Sodium 133 mmol/L Low 135-145 Panel [address] [place] [address] [phone] Potassium 4.7 mmol/L N 3.5-5.0 Chloride 99 mmol/L Low 101-111 Co2 Carbon Dioxide 28 mmol/L N 22-32 Anion Gap 6 mmol/L N 2-11 Glucose 125 mg/dL High 70-100 Blood Urea Nitrogen 22 mg/dL N 6-24 Creatinine 0.79 mg/dL N 0.67-1.17 BUN/Creatinine Ratio 27.8 High 8-20 Calcium 9.4 mg/dL N 8.6-10.3 Egfr Non- 93.7 >60 Egfr 113.3 >60 2 Inr/Protime 10/19/2018 [facility] Inr 3.74 High 0.77-1.[address] [place] [address] [phone] Lipid Profile 10/19/2018 [facility] Triglycerides 67 mg/dL 3 (Trig/Chol/HDL) [address] [place] [address] [phone] Cholesterol 121 mg/dL 4 HDL Cholesterol 38.2 mg/dL 5 LDL Cholesterol 69 mg/dL 6 Basic Metabolic 09/07/2018 [facility] Sodium 131 mmol/L Low 135-[address] [place], [place] [id number] [phone] Chloride 97 mmol/L Low 101-111 Co2 Carbon Dioxide 27 mmol/L N 22-32 Glucose 180 mg/dL High 70-100 Blood Urea Nitrogen 21 mg/dL N 6-24 Creatinine 0.91 mg/dL N 0.67-1.17 BUN/Creatinine Ratio 23.1 High 8-20 Calcium 9.0 mg/dL N 8.6-10.3 Egfr Non- 79.6 >60 Egfr 96.3 >60 7 Potassium 5.2 mmol/L High 3.5-5.0 Anion Gap 7 mmol/L N 2-11 Xray 07/31/2018 [facility] MRI Lower <pending> [address] [place] [address] W/O [phone] Laboratory test 06/14/2018 [facility] Point of Care 95 mg/dL N 70-[address] Glucose [place], [place] [id number] [phone] CBC Auto Diff 06/09/2018 [facility] White Blood 7.0 10^3/uL N 3.5-[address] Count [address]8 [place] [address] [phone] Red Blood Count 4.39 10^6/uL N 4.00-5.40 Hemoglobin 13.1 g/dL Low 14.0-18.0 Hematocrit 39 % Low 42-52 Mean Corpuscular Volume 89 fL N 80-94 Mean Corpuscular Hemoglobin 30 pg N 27-31 Mean Corpuscular HGB Conc 34 g/dL N 31-36 Red Cell Distribution Width 15 % N 10.5-15 Platelet Count 195 10^3/uL N 150-450 Mean Platelet Volume 7.7 um3 N 7.4-10.4 Abs Neutrophils 4.9 10^3/uL N 1.5-7.7 Abs Lymphocytes 1.3 10^3/uL N 1.0-4.8 Abs Monocytes 0.6 10^3/uL N 0-0.8 Abs Eosinophils 0.1 10^3/uL N 0-0.6 Abs Basophils 0.1 10^3/uL N 0-0.2 Abs Nucleated RBC 0 10^3/uL Granulocyte % 70.1 % N 38-83 Lymphocyte % 19.3 % Low 25-47 Monocyte % 8.6 % High 0-7 Eosinophil % 1.2 % N 0-6 Basophil % 0.8 % N 0-2 Nucleated Red Blood Cells % 0 Basic Metabolic 05/29/2018 [facility] Sodium 133 mmol/L Low 135-[address] [place] [address] [phone] Potassium 4.5 mmol/L N 3.5-5.0 Chloride 99 mmol/L Low 101-111 Co2 Carbon Dioxide 25 mmol/L N 22-32 Anion Gap 9 mmol/L N 2-11 Glucose 131 mg/dL High 70-100 Blood Urea Nitrogen 22 mg/dL N 6-24 Creatinine 0.92 mg/dL N 0.67-1.17 BUN/Creatinine Ratio 23.9 High 8-20 Calcium 9.3 mg/dL N 8.6-10.3 Egfr Non- 78.6 >60 Egfr 95.1 >60 9 1 Because ethnic data is not always readily [...] 15-29 5 Kidney failure <15 (or dialysis) 2 Because ethnic data is not always [...] 15-29 5 Kidney failure <15 (or dialysis) 3 Desirable: <150 Borderline High: 150-199 High: 200-499 Very High: >500 4 Desirable: <200 Borderline High: 200-239 High: >239 5 Low: <40 Desirable: 40-60 High: >60 6 Desirable: <100 Near Optimal: 100-129 Borderline High: 130-159 High: 160-189 Very High: >189 7 Because ethnic data is not always readily [...] 15-29 5 Kidney failure <15 (or dialysis) 8 Executive Office Manager: [id number] 9 Because ethnic data is not always readily [...] Kidney failure <15 (or dialysis) Procedures Date Code Description Status 11/01/2018 04231 Pare Hyperkeratotic Lesion Singl Completed 10/26/2018 55681 Moderate Sedation Services; Same Phys Intl 15 Mins; PT >=5 Completed Years 10/26/2018 99247 Ultrasound Guidance For Vascular Access Completed 10/26/2018 17690 Ebktj-Vdlncufyz-Xfktvkmdsz Completed 10/26/2018 59679 Catheter Placement Arterial System Init 3RD Order Completed Abdom/Pelv/Low 10/18/2018 64392 Removal Devitalization Tissue Wound Less Than Equal 20 Completed Square CM 10/11/2018 25077 Removal Devitalization Tissue Wound Less Than Equal 20 Completed Square CM 09/22/2018 26490 Apply Total Contact Leg Cast Completed 09/06/2018 75196 Debridement Skin,& sq Tissue Completed 08/30/2018 77399 Debridement Skin,& sq Tissue Completed 08/23/2018 38168 Removal Devitalization Tissue Wound Less Than Equal 20 Completed Square CM 08/16/2018 08437 Removal Devitalization Tissue Wound Less Than Equal 20 Completed Square CM 07/19/2018 41207 ECHO Transthoracic, Real-Time 2D With Doppler And Color Completed Flow 07/19/2018 24917 ECHO Transthoracic, Real-Time 2D With Doppler And Color Completed Flow 07/12/2018 23299 EKG Tracing & Interpretation Completed 07/07/2018 83598 EKG Tracing & Interpretation Completed 06/23/2018 38259 Pare Hyperkeratotic Lesion Singl Completed 06/14/2018 35027 Cath PLMT&NJX L Ventriculog Img S&I Completed 05/12/2018 29055 EKG Tracing & Interpretation Completed 05/08/2018 21154 ECHO Transthoracic, Real-Time 2D With Doppler And Color Completed Flow 05/08/2018 92735 ECHO Transthoracic, Real-Time 2D With Doppler And Color Completed Flow 04/25/2018 69433 Diffusing Capacity Completed 04/25/2018 29966 Plethysmography Determination Lung Volumes & Per Airway Completed Resist 04/25/2018 17186 Pulmonary Function><Bronchodil Completed 04/18/2017 97182 EKG Tracing & Interpretation Completed 04/15/2017 82526 ECHO Transthoracic, Real-Time 2D With Doppler And Color Completed Flow 04/16/2016 61547 EKG Tracing & Interpretation Completed 04/14/2016 37511 ECHO Transthoracic, Real-Time 2D With Doppler And Color Completed Flow 04/08/2015 51529 ECHO Transthoracic, Real-Time 2D With Doppler And Color Completed Flow 03/24/2015 03946 Stress Test Completed 03/24/2015 13601 Myocardial Perfusion Imaging Tomographic (Spect) Multiple Completed Studies 04/02/2014 33485 EKG Tracing & Interpretation Completed 03/27/2014 78095 ECHO Transthoracic, Real-Time 2D With Doppler And Color Completed Flow 03/20/2013 08695 EKG Tracing & Interpretation Completed 03/16/2013 12518 ECHO Transthoracic, Real-Time 2D With Doppler And Color Completed Flow Encounters Type Date Location Provider Dx Diagnosis Office Visit 11/29/2018 [facility] Tyrone Gutierrez E11.621 Type 2 diabetes 9:15a AT [facility] MD Susi mellitus with foot ulcer Office Visit 11/15/2018 [facility] Tyrone Gutierrez E11.621 Type 2 diabetes 9:15a AT [facility] MD Susi mellitus with foot ulcer Office Visit 09/29/2018 Orthopedic Mookie Hill, L97.529 Non-pressure 9:45a Services Of Tana DUNCAN chronic ulcer oth prt left foot w unsp severity E11.40 Type 2 diabetes mellitus with diabetic neuropathy, unsp E11.621 Type 2 diabetes mellitus with foot ulcer Office Visit 09/22/2018 Orthopedic Mookie Hill L97.529 Non-pressure 9:45a Services Of chronic ulcer oth C.M.A. 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 mellitus with foot ulcer L03.116 Cellulitis of left lower limb Office Visit 06/23/2018 9:15a Orthopedic Mookie Hill E11.621 Type 2 Services Of diabetes C.M.A. mellitus with foot ulcer L03.116 Cellulitis of left lower limb Office Visit 06/12/2018 10:30a Orthopedic Mookie Hill L03.116 Cellulitis of Services Of left lower limb C.M.A. 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 diabetes Hospitalists mellitus with foot ulcer L97.529 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 w unsp severity L03.116 Cellulitis of left lower limb E83.42 Hypomagnesemia Office Visit 06/06/2018 12:02p [facility] E11.621 Type 2 Assyari witt M.D. diabetes Hospitalists mellitus with foot ulcer L97.529 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 w unsp severity L03.116 Cellulitis of left lower limb E83.42 Hypomagnesemia Office Visit 06/06/2018 3:13p Orthopedic Radha Johnson E11.621 Type 2 diabetes Services Of [place] mellitus with C.M.A. foot ulcer L97.529 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 w unsp severity Office Visit 06/05/2018 12:02p [facility] E11.621 Type 2 Assyari witt M.D. diabetes Hospitalists mellitus with foot ulcer L97.529 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 w unsp severity L03.116 Cellulitis of left lower limb Office Visit 06/05/2018 3:13p Orthopedic Radha Johnson, E11.621 Type 2 diabetes Services Of [place] mellitus with C.M.A. foot ulcer L97.529 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 w unsp severity Office Visit 06/04/2018 [facility] Luh Joseph E11.621 Type 2 12:02p Assyari witt NP diabetes Hospitalists mellitus with foot ulcer L97.529 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 w unsp severity L03.116 Cellulitis of left lower limb I10 Essential (primary) hypertension Office Visit 06/04/2018 3:12p Orthopedic Mookie Hill, E11.40 Type 2 diabetes Services Of mellitus with C.M.A. diabetic neuropathy, unsp L03.116 Cellulitis of left lower limb Office Visit 06/03/2018 12:01p [facility] E11.621 Type 2 Assyari witt NP diabetes Hospitalists mellitus with foot ulcer L97.529 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 w unsp severity L03.116 Cellulitis of left lower limb M79.672 Pain in left foot Office Visit 06/02/2018 12:01p [facility] E11.621 Type 2 yari Alonso NP diabetes Hospitalists mellitus with foot ulcer L97.529 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 w unsp severity L03.116 Cellulitis of left lower limb E83.42 Hypomagnesemia Office Visit 06/02/2018 3:12p Orthopedic Mookie Hill, E11.40 Type 2 diabetes Services Of mellitus with C.M.A. diabetic neuropathy, unsp L03.116 Cellulitis of left lower limb Office Visit 06/01/2018 12:00p [facility] E11.621 Type 2 Assyari witt NP diabetes Hospitalists mellitus with foot ulcer L97.529 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 w unsp severity L03.116 Cellulitis of left lower limb E83.42 Hypomagnesemia Office Visit 05/31/2018 [facility] L97.529 Non-pressure 12:00p Assyari witt NP chronic ulcer oth Hospitalists prt left foot w unsp severity E11.621 Type 2 diabetes mellitus with foot ulcer M79.672 Pain in left foot L03.116 Cellulitis of left lower limb Office Visit 05/12/2018 11:30a Cardiology Fan Rodney I35.0 Nonrheumatic aortic Services Of Divya Hay M.D., (valve) stenosis AT [facility], [facility] I48.2 Chronic atrial fibrillation I27.20 Pulmonary hypertension, unspecified Office Visit 04/25/2018 1:45p Pulmonology And Chiquita J44.9 Chronic Sleep Services Of MD Charo obstructive Distribution Technician pulmonary disease, unspecified J45.909 Unspecified asthma, uncomplicated G47.33 Obstructive sleep apnea (adult) (pediatric) E66.01 Morbid (severe) obesity due to excess calories Office Visit 03/17/2018 Pulmonology And Chiquita Z01.811 Encounter for 8:00a Sleep Services Of MD Charo preprocedural [facility] respiratory examination H26.9 Unspecified cataract J44.1 Chronic obstructive pulmonary disease w (acute) exacerbation J45.909 Unspecified asthma, uncomplicated G47.33 Obstructive sleep apnea (adult) (pediatric) E66.09 Other obesity due to excess calories Z68.36 Body mass index (BMI) 36.0-36.9, adult Office Visit 01/12/2018 [facility] J11.1 Flu due to 10:55a Assoc, Leatha Allan, 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 J44.1 Chronic obstructive pulmonary disease w (acute) exacerbation I48.91 Unspecified atrial fibrillation I10 Essential (primary) hypertension Office Visit 01/11/2018 [facility] J11.1 Flu due to 10:55a Assoc, Leatha Allan, 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 J44.1 Chronic obstructive pulmonary disease w (acute) exacerbation I48.91 Unspecified atrial fibrillation I10 Essential (primary) hypertension Office Visit 01/10/2018 [facility] J11.1 Flu due to 10:54a Assoc, Leatha Allan, 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 J44.1 Chronic obstructive pulmonary disease w (acute) exacerbation I48.91 Unspecified atrial fibrillation I10 Essential (primary) hypertension Office Visit 01/09/2018 [facility] Mariya J11.1 Flu due to 10:53a Assoc,pc Leatha Allan, 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 J44.1 Chronic obstructive pulmonary disease w (acute) exacerbation E11.8 Type 2 diabetes mellitus with unspecified complications I48.91 Unspecified atrial fibrillation Office Visit 01/08/2018 10:51a [facility] Kemal J11.1 Flu due to Assoc,KO Tapia unidentified Hospitalists influenza virus w oth resp manifest I10 Essential (primary) hypertension I48.91 Unspecified atrial fibrillation E11.8 Type 2 diabetes mellitus with unspecified complications Office Visit 01/07/2018 10:50a [facility] Kemal J11.1 Flu due to Assoc,KO Tapia unidentified Hospitalists influenza virus w oth resp manifest I10 Essential (primary) hypertension I48.91 Unspecified atrial fibrillation E11.8 Type 2 diabetes mellitus with unspecified complications Office Visit 01/06/2018 [facility] Iggy J11.1 Flu due to 10:49a Assoc,pc Devonte, N.P. unidentified Hospitalists influenza virus w oth resp manifest I10 Essential (primary) hypertension I48.91 Unspecified atrial fibrillation E11.8 Type 2 diabetes mellitus with unspecified complications Office Visit 04/18/2017 9:45a [facility] Fan Stevens I48.2 Chronic atrial Of Divya Hay M.D., fibrillation FACC, FASNC Office Visit 04/16/2016 8:45a [facility] Fan Stevens I48.2 Chronic atrial Of Divya Hay M.D., fibrillation FACC, FASNC Office Visit 04/16/2015 10:45a [facility] Fan Stevens 427.31 Atrial Fibrillation Of Divya Hay M.D., FACC, FASNC Office Visit 04/02/2014 1:45p [facility] Fan Stevens 427.31 Atrial Fibrillation Of Divya Hay M.D., FACC, FASNC Office Visit 03/20/2013 8:45a [facility] Fan Stevens 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
[2019-02-25] MEDS ORDERED: Albuterol 2.5 MG/3 ML NEB.SOL* (0.083%) INH SCH (23:45)
--- NOTE | 2019-02-25 23:45 | ED ---
GI/ HPI - HPI Summary HPI Summary: This patient is an 83 year old M presenting to ED with a chief complaint of blood found in his underwear at 2100. He does not know where the bleeding is coming from. The patient is on Coumadin. He says that the bleeding only occurred once and that he found a lot of blood. The patient rates the pain 0/ 10 in severity. Symptoms aggravated by nothing. Symptoms alleviated by nothing. Patient reports SOB (since a couple weeks ago). Patient denies fever. PMHx of COPD. He has a nebulizer at home and has not used it. - History of Current Complaint Chief Complaint: EDBleedingDisorder Time Seen by Provider: 02/25/19 23:24 Stated Complaint: BLEEDING FROM BUTTOCKS PER PT Hx Obtained From: Patient Onset/Duration: Started Hours Ago - found at 2100, Resolved Timing: Intermittent Current Severity: None Pain Intensity: 0 Associated Signs and Symptoms: Positive: Other: - SOB and blood found in his underwear. Negative: Fever - Additional Pertinent History Primary Care Physician: ANA - Allergy/Home Medications Allergies/Adverse Reactions: Allergies Allergy/AdvReac Type Severity Reaction Status Date / Time nut - unspecified Allergy Swelling Verified 09/26/18 13:45 Of Face,Lips,& Throat Penicillins Allergy Swelling Verified 09/26/18 13:45 ramipril [From Altace] Allergy Coughing Verified 09/26/18 13:45 PMH/Surg Hx/FS Hx/Imm Hx Endocrine/Hematology History: Reports: Hx Diabetes - type II Denies: Hx Thyroid Disease Cardiovascular History: Reports: Hx Hypertension, Other Cardiovascular Problems/ Disorders - On list for TAVR Denies: Hx Pacemaker/ICD Respiratory History: Reports: Hx Asthma Denies: Hx Chronic Obstructive Pulmonary Disease (COPD) GI History: Denies: Hx Ulcer History: Denies: Hx Renal Disease Sensory History: Reports: Hx Contacts or Glasses Denies: Hx Hearing Aid Opthamlomology History: Reports: Hx Contacts or Glasses Psychiatric History: Denies: Hx Panic Disorder - Cancer History Cancer Type, 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 03/2018 [facility]. Appendectomy,. nose surgery - DEVIATED SEPTUM. Rt shoulder torn rotator cuff repair Infectious Disease History: No Infectious Disease History: Denies: Hx Hepatitis, Hx Human Immunodeficiency Virus (HIV), Traveled Outside the [place] in Last 30 Days - Family History Known Family History: Positive: Hypertension, Other - Cancer - Social History Alcohol Use: Occasionally Alcohol Amount: LAST DRINK TUESDAY NIGHT Substance Use Type: Reports: None Smoking Status (MU): Former Smoker Review of Systems Positive: Other - blood found in his underwear, unknown origin. Negative: Fever Positive: Shortness Of Breath All Other Systems Reviewed And Are Negative: Yes Physical Exam - Summary Physical Exam Summary: VITAL SIGNS: Reviewed. GENERAL: Patient is a well-developed and nourished MALE who is lying comfortable in the stretcher. Patient is not in any acute respiratory distress. HEAD AND FACE: No signs of trauma. No ecchymosis, hematomas or skull depressions. No sinus tenderness. EYES: PERRLA, EOMI x 2, No injected conjunctiva, no nystagmus. EARS: Hearing grossly intact. Ear canals and tympanic membranes are within normal limits. MOUTH: Oropharynx within normal limits. NECK: Supple, trachea is midline, no adenopathy, no JVD, no carotid bruit, no c- spine tenderness, neck with full ROM. CHEST: Symmetric, no tenderness at palpation LUNGS: Clear to auscultation bilaterally. No wheezing or crackles. Decreased breath sounds bilaterally with expiratory wheezes. CVS: Regular rate and rhythm, S1 and S2 present, no murmurs or gallops appreciated. ABDOMEN: Soft, non-tender. Abdomen is distended. No rebound no guarding, and no masses palpated. Bowel sounds are normal. EXTREMITIES: FROM in all major joints, no cyanosis or clubbing. +2 bilateral LE edema with chronic venous changes. NEURO: Alert and oriented x 3. No acute neurological deficits. Speech is normal and follows commands. SKIN: Dry and warm RECTAL EXAM: No masses, no external hemorrhoids, and brown stool was found and was sent for occult blood Triage Information Reviewed: Yes Vital Signs On Initial Exam: Initial Vitals Temp Pulse Resp BP Pulse Ox 98.4 F 53 16 156/83 93 02/25/19 23:02 02/25/19 23:02 02/25/19 23:02 02/25/19 23:02 02/25/19 23:02 Vital Signs Reviewed: Yes Diagnostics - Vital Signs Vital Signs Temp Pulse Resp BP Pulse Ox 02/25/19 23:02 98.4 F 53 16 156/83 93 - Laboratory Result Diagrams: 02/26/19 00:11 02/26/19 00:11 Lab Statement: Any lab studies that have been ordered have been reviewed, and results considered in the medical decision making process. - Radiology CXR Radiology Interpretation Completed By: ED Physician Summary of Radiographic Findings: Cardiomegaly. Bilateral interstitial infiltrate. Left pleural effusion that is consistent with CHF. Pending radiologist official report. - EKG 0003 Cardiac Rate: Other Rate - afib at 43 BPM EKG Rhythm: Atrial Fibrillation Summary of EKG Findings: RBBB GIGU Course/Dx - Course Assessment/Plan: This patient is an 83 year old M presenting to ED with a chief complaint of blood found in his underwear at 2100. In the ED course, the patient was given a duoneb, ventolin, lasix, and hydrocortisone. EKG reveals afib at 43 BPM and RBBB. CXR reveals cardiomegaly, bilateral interstitial infiltrate, and left pleural effusion that is consistent with CHF. During ED course, patient received solu-cortef 100 mg IV ED ONCE, Lasix 40 mg IV SLOW PU ED ONCE, and duoneb 1 neb INH ED ONCE. Labs showed RBC 4.11, hgb 12.4, RDW 16, Plt count 123, absolute monos 1.1, INR 2.51, APTT 42.7, BUN 34, BUN/creatinine ratio 35.8, total bilirubin 1.1, trop 0.04, BNP 480. 0110 - Patient's case was discussed with Dr. Yao, Dr. Yao accepts the patient for admission. This patient will be admitted with dx of CHF and COPD. Patient understands and agrees with this plan. - Diagnoses Provider Diagnoses: CHF (congestive heart failure), COPD (chronic obstructive pulmonary disease) - Physician Notifications Discussed Care Of Patient With: Sushila Yao Time Discussed With Above Provider: 01:10 Instructed by Provider To: Other - 0110 - Patient's case was discussed with Dr. Yao, Dr. Yao accepts the patient for admission. Discharge - Sign-Out/Discharge Documenting (check all that apply): Patient Departure - admit Patient Received Moderate/Deep Sedation with Procedure: No - Discharge Plan Condition: Stable Disposition: ADMITTED TO [facility] Referrals: Abel Galicia DO [Primary Care Provider] - - Attestation Statements Document Initiated by Scribe: Yes Documenting Scribe: Akshat Michel Provider For Whom Scribe is Documenting (Include Credential): Claude Gutierrez MD Scribe Attestation: Akshat Richardson and Amos Michel, scribed for Claude Gutierrez MD on 02/26/19 at 0121. Status of Scribe Document: Ready
[2019-02-25] MEDS ORDERED: Albuterol/Ipratropium NEB.SOL* Albuterol 2.5 MG/Ipratropium 0.5 MG 3 ML INH ONE (23:46)
[2019-02-25] MEDS ORDERED: Hydrocortisone INJ* 100 MG VIAL IV ONE (23:47)
[2019-02-26] MEDS ORDERED: Furosemide IV* 10 MG/ML VIAL (40 MG) IV SLOW PU ONE (00:13)
[2019-02-26 00:19] LABS: ABS Basophils 0.1 10^3/ul (0-0.2); ABS Eosinophils 0.1 10^3/ul (0-0.6); ABS Lymphocytes 1.5 10^3/ul (1.0-4.8); ABS Monocytes 1.1 10^3/ul (0-0.8); ABS Neutrophils 5.6 10^3/ul (1.5-7.7); ABS Nucleated RBC 0 10^3/ul; Eosinophil % 1.1 %; Hematocrit 37 % (36-46); Hemoglobin 12.4 g/dL (14.0-18.0); Lymphocyte % 17.6 %; Mean Corpuscular HGB Conc 33 g/dL (31-36); Mean Corpuscular Hemoglobin 30 pg (27-31); Mean Corpuscular Volume 91 fL (80-94); Mean Platelet Volume 8.3 fL (7.4-10.4); Nucleated Red Blood Cells % 0; Platelet Count 123 10^3/uL (150-450); Red Blood Count 4.11 10^6 /uL (4.18-5.48); Red Cell Distribution Width 16 % (10.5-15); White Blood Count 8.3 10^3/uL (3.5-10.8)
[2019-02-26 00:33] LABS: Activated Partial Thrombo Time 42.7 seconds (26.0-36.3); INR 2.51 (0.77-1.02)
[2019-02-26 00:38] LABS: ALT 35 U/L (7-52); AST 38 U/L (13-39); Albumin/Globulin Ratio 1.7 (1-3); Alkaline Phosphatase 80 U/L (34-104); Anion Gap 7 mmol/L (2-11); BUN/Creatinine Ratio 35.8 (8-20); Blood Urea Nitrogen 34 mg/dL (6-24); C Reactive Protein 1.05 mg/L (<8.01); CO2 Carbon Dioxide 27 mmol/L (22-32); Calcium 9.1 mg/dL (8.6-10.3); Chloride 102 mmol/L (101-111); EGFR African American 91.6 (>60); EGFR Non-African American 75.7 (>60); Globulin 2.4 g/dL (2-4); Glucose 123 mg/dL (70-100); Potassium 4.1 mmol/L (3.5-5.0); Sodium 136 mmol/L (135-145); Total Protein 6.4 g/dL (6.4-8.9)
[2019-02-26 00:56] LABS: Troponin I 0.04 ng/mL (<0.04)
[2019-02-26] MEDS ORDERED: Albuterol HFA INHALER* 8 gm MDI INH PRN (02:56)
[2019-02-26] MEDS ORDERED: Dextrose 50% Syringe 50 ML* 25 GM/50 ML SYRINGE IV PUSH PRN (02:59)
[2019-02-26 04:19] LABS: INR 2.49 (0.77-1.02)
[2019-02-26] MEDS ORDERED: Albuterol/Ipratropium NEB.SOL* Albuterol 2.5 MG/Ipratropium 0.5 MG 3 ML INH PRN (04:19)
[2019-02-26 04:36] LABS: Troponin I 0.05 ng/mL (<0.04)
[2019-02-26 06:34] LABS: Troponin I 0.04 ng/mL (<0.04)
--- NOTE | 2019-02-26 07:08 | HP ---
HISTORY AND PHYSICAL: DATE OF ADMISSION: 02/26/19 CHIEF COMPLAINT: Bright red blood per rectum and shortness of breath. PRIMARY CARE PROVIDER: Abel Galicia DO CLINIC MGR: Lori Redmond. CODE STATUS: DNR. SOURCE OF INFORMATION: HPI is obtained from the patient, who is an excellent historian. HISTORY OF PRESENT ILLNESS: This is an 83-year-old male with a past medical history of atrial fibrillation, on anticoagulation; aortic stenosis, status post aortic valve replacement; heart failure with preserved ejection fraction ( assumed, no echo on file); CLL, on surveillance; pdn-tzmgdrq-rwfpoqhvi diabetes ; BPH; GELACIO not on CPAP; hypertension; hyperlipidemia; and COPD, on chronic prednisone 5 mg daily, who presented to the emergency room this evening with a chief complaint of presumed bright red blood per rectum as well as a subacute history of 1 to 2 weeks of worsening shortness of breath and dyspnea on exertion. He reports that tonight he found bright red blood in his underwear. He said that the quantity was about a golf ball size amount and he was unsure where it came from. He reports that coupled with his progressive shortness of breath and lower extremity swelling and the fact that he was on Coumadin, he wanted to come to the ED. He denies any abdominal or rectal pain, diarrhea, constipation, nausea or vomiting. He does state in regard to his shortness of breath, there is no associated chest pain. It has been happening gradually for the past 1 to 2 weeks. There was no inciting events. He does notice that he has had worsening lower extremity edema and that it has been harder and harder for him to lay flat, at times he is woken from sleep short of breath. He does have mild wheezing, but denies any new coughing, change in sputum color, wheezing or shortness of breath while at rest. Furthermore, he does note that his weight has increased. He says that usually he is around 210 to 215 pounds and today he weighed 220 pounds. He has been compliant with all of his medications and he does follow a low salt diet. EMERGENCY ROOM COURSE: In the emergency room, his temperature was 98.4, pulse was 53, respiratory rate 16, oxygen saturation was 93% on room air, blood pressure was 156/82. An EKG was done, which showed an atrial fibrillation and rate in the high 40s to 50s. Chest x-ray was done, which showed cardiomegaly with peribronchial cuffing and interstitial edema, but no acute infiltrates. Labs were done which showed stable hemoglobin of 12.4. INR of 2.5, unremarkable chemistries. Troponin mildly elevated to 0.04 and a BNP of 480. He was given hydrocortisone when he arrived for concerns for bright red blood per rectum, and possible adrenal insufficiency. He was also given DuoNeb, Lasix 40 mg IV x1 and then the hospitalist team was asked to evaluate the patient for shortness of breath and complaints of one episode of bright red blood per rectum. PAST MEDICAL HISTORY: Atrial fibrillation, on anticoagulation; heart failure with preserved ejection fraction; aortic stenosis, status post AVR; COPD, on chronic prednisone; CLL, on surveillance; non-insulin dependent diabetes; BPH; GELACIO, not on CPAP; hypertension; and hyperlipidemia. PAST SURGICAL HISTORY: TAVR, appendectomy, rotator cuff repair, and a deviated septum repair. MEDICATIONS: The patient takes: 1. Acetaminophen 500 mg 1 to 2 tablets p.o. q.6 hours p.r.n. for pain. 2. Albuterol 2 puffs inhale q.4 hours p.r.n. for shortness of breath. 3. Ascorbic acid 500 mg p.o. daily. 4. Aspirin 81 mg p.o. daily. 5. Atorvastatin 20 mg p.o. daily. 6. Cholecalciferol 5000 units p.o. daily. 7. Fluticasone/vilanterol or Breo Ellipta 1 puff inhale daily. 8. Furosemide 20 mg p.o. b.i.d. 9. Glucosamine chondroitin 1500 mg p.o. daily. 10. Ipratropium nebulizer 0.5 mg inhale q.6 hours p.r.n. for shortness of breath. 11. Losartan 100 mg p.o. daily. 12. Magnesium 800 mg p.o. q.h.s. 13. Metformin 1000 mg p.o. b.i.d. 14. Metoprolol succinate 50 mg p.o. daily. 15. Montelukast 10 mg p.o. daily. 16. Multivitamin 1 tab p.o. daily. 17. Prednisone 5 mg p.o. daily. 18. Tamsulosin 0.4 mg p.o. daily. 19. Terbinafine 1 tab p.o. daily. 20. Tiotropium Spiriva Respimat 2.5 mcg inhale daily. 21. Triamcinolone cream apply to bilateral lower extremities b.i.d. p.r.n. 22. Warfarin 3 mg p.o. daily. ALLERGIES: To NUTS unspecified, PENICILLIN, and RAMIPRIL. FAMILY HISTORY: His mother from heart disease and his father from pancreatic cancer. SOCIAL HISTORY: Tobacco: He is a former tobacco user with a 5 pack year history. Alcohol: He is a social drinker quite infrequently. Illicits: Never history of illicits. 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 He lives with his . REVIEW OF SYSTEMS: As per HPI. A 10-point review of systems was done. Constitutional: Negative for fevers, chills, or malaise. Eyes: Negative for vision changes or pain. ENT: Negative for sore throat. Cardiovascular: Negative for chest pain or palpitations. Positive for dyspnea on exertion or orthopnea. Respiratory: Positive for shortness of breath. Negative for cough. Negative for pleuritic chest pain. GI: Negative for nausea, vomiting, diarrhea or abdominal pain. Positive for 1 episode of bright red blood per rectum. : Negative for dysuria or hematuria. Musculoskeletal: Negative for myalgias, arthralgias, or weakness. Skin: Negative for rashes or lesions. Neurologic: Negative for focal weakness or numbness. Psychiatric: Negative for anxiety or depression. Endocrine: Negative for polyuria or polydipsia. Heme/Lymph: Negative for bruising, bleeding, or lymphadenopathy. PHYSICAL EXAMINATION GENERAL APPEARANCE: This is a very well-appearing man in no acute distress, pleasant and conversant with glasses and nasal cannula in place. VITAL SIGNS: At the time of physical exam, blood pressure is 152/63, heart rate is 46, respiratory rate 16, oxygen saturation is 97% on 2 L nasal cannula. HEENT: Moist mucous membranes. Extraocular muscles are intact. NECK: Supple with no supraclavicular lymphadenopathy. RESPIRATORY: Has good air entry bilaterally, scant bilateral crackles at the end of expiration in bilateral bases, no inspiratory or expiratory wheezes and no increased work of breathing. CARDIAC: Irregular, bradycardic with no murmurs, rubs or gallops. ABDOMEN: Belly is distended, obese, but soft and nontender with normoactive bowel sounds. SKIN: Without rashes although does have bilateral chronic venostasis in lower extremities. MUSCULOSKELETAL: He moves all 4 limbs spontaneously and without pain. There is 2+ pulses in the lower extremities bilaterally and DP. He has 3+ pitting edema to bilateral lower extremities NEUROLOGIC: His cranial nerves II through XII are intact with no focal neurologic deficits. The patient is A and O x3. DIAGNOSTIC STUDIES/LAB DATA: CBC with white blood cell count of 8.3, hemoglobin 12.4, hematocrit 37, platelets of 123. INR is 2.5. CMP is sodium of 136, potassium of 4.1, chloride of 102, carbon dioxide 27, anion gap 7, creatinine 0.95, glucose 123, calcium 9.1. Total bilirubin 1.1, AST 38, ALT 35 , alk phos 80. Troponin 0.04. BNP 480. Imaging done includes an EKG, which shows fib and rate of 40 and a chest x-ray , which showed cardiomegaly with peribronchial cuffing and interstitial edema in bilateral lower lung bases with a left costovertebral angle obfuscated. Imaging and EKG reviewed by myself. ASSESSMENT AND PLAN: 83-year-old male with a past medical history of atrial fibrillation, on anticoagulation; heart failure with preserved ejection fraction; aortic stenosis , status post TAVR; chronic obstructive pulmonary disease, on prednisone; non- insulin-dependent diabetes; benign prostatic hyperplasia; obstructive sleep apnea, not on CPAP; hypertension; hyperlipidemia, who presented to the emergency room, with 2 chief complaints of presumed bright red blood per rectum x 1 episode and no recurrence and stable hemoglobin as well as shortness of breath most consistent with the acute exacerbation of heart failure. 1. Congestive heart failure exacerbation. The patient will be on 40 mg IV Lasix daily with a goal of dry weight around 210 to 215. We will continue the patient on home beta-juana. Strict intake and outputs, low salt diet and electrolyte monitoring during acute diuresis. 2. Bright red blood per rectum. We will continue to monitor. This is most likely either internal hemorrhoids or diverticular bleed. ER physician notes that there is only brown stool involved and no obvious external hemorrhoids. Consider GI if the patient has another episode of bright red blood per rectum. 3. Chronic obstructive pulmonary disease. No evidence of acute exacerbation of COPD at this time, although possibly overlay with CHF exacerbation. We will continue DuoNeb. We will continue on low dose prednisone 5 mg daily, may increase as needed as well as Montelukast and home steroids. 4. Atrial fibrillation, on anticoagulation. We will continue on warfarin with INR goals between 2 and 3. Currently in goal, and is rate controlled on metoprolol succinate. 5. Hypertension. We will resume home losartan. 6. Gqn-acamdwj-habaaiian diabetes. We will continue home metformin and sliding - scale Lispro for mealtime coverage. 7. Benign prostatic hypertrophy. We will continue home tamsulosin. 8. Chronic lymphocytic leukemia. This is stable with no contribution to current presentation. 9. Sleep apnea. The patient is noncompliant on CPAP and declines treatment in hospital. 10. DVT prophylaxis. The patient is on therapeutic warfarin. 11. DIET is heart healthy. 12. Code status is do not resuscitate with MOLST completed at bedside. 13. Disposition. Stable for admission to telemetry floor. TIME SPENT: Forty minutes was spent on planning of this admission with over half of that spent directly at the bedside with the patient providing direct patient care. The patient and his family is agreeable to admission and they have no further questions. [id number]/[facility] #: [id number] [place]
[2019-02-26] MEDS: PTO: Fluticasone/Vilanterol MDI(NF) 200/25 MDI INH SCH (08:01)
[2019-02-26] MEDS ORDERED: Metoprolol Succinate XL TAB* 50 MG PO SCH (09:00)
[2019-02-26] MEDS ORDERED: Metoprolol Succinate XL TAB* 25 MG PO SCH (09:00)
[2019-02-26] MEDS ORDERED: Pantoprazole IV* 40 MG IV SCH (09:00)
[2019-02-26] MEDS: Insulin LISPRO* 1 UNITS UNIT SUBCUT SCH ×3 (09:06→17:28)
[2019-02-26] MEDS: Tamsulosin CAP* 0.4 MG PO SCH (09:07)
[2019-02-26] MEDS: Aspirin 81 mg CHEW TAB* 81 MG TAB.CHEW PO SCH (09:07)
[2019-02-26] MEDS: Multivitamins/Minerals TAB PO SCH (09:07)
[2019-02-26] MEDS: predniSONE TAB* 5 MG PO SCH (09:07)
[2019-02-26] MEDS: Atorvastatin* 20 MG TAB PO SCH (09:07)
[2019-02-26] MEDS: Ascorbic Acid TAB* 500 MG PO SCH (09:07)
[2019-02-26] MEDS: Warfarin TAB(*) 3 MG PO SCH (09:07)
[2019-02-26] MEDS: Montelukast Sodium TAB* 10 MG PO SCH (09:07)
[2019-02-26] MEDS: Cholecalciferol TAB* 1000 UNITS PO SCH (09:08)
[2019-02-26] MEDS: metFORMIN* 1,000 MG TAB PO SCH ×2 (09:08→19:55)
[2019-02-26] MEDS: Losartan TAB* 25 MG PO SCH (09:08)
[2019-02-26] MEDS: Furosemide IV* 10 MG/ML VIAL (40 MG) IV SCH (09:09)
[2019-02-26 09:32] LABS: Troponin I 0.04 ng/mL (<0.04)
--- NOTE | 2019-02-26 11:57 | ADMNOTE ---
Subjective Date of Service: 02/26/19 Interval History: Patient feels breathing is better this morning. Denies chest pain. Family present, had many questions about prednisone, albuterol, Breo, spiriva, lasix, metoprolol. Feels nebulizer albuterol causes throat to be too dry. On prednisone chronically through Dr. Mancilla. Has had bradycardia on metoprolol as outpatient. Sees Dr. Hay for cardiology. Family History: Unchanged from Admission Social History: Unchanged from Admission Past Medical History: Unchanged from Admission Review of Systems - Measurements Intake and Output: Intake and Output Last 24 Hours 02/24/19 02/25/19 02/26/19 02/27/19 06:59 06:59 06:59 06:59 Intake Total 0 360 Output Total 775 Balance -775 360 Weight 102.512 kg Intake: Oral 0 360 Output: Urine 775 - Review of Systems Pulmonary: Positive: Shortness of Breath Negative: Wheezing Cardiology: Positive: Normal Negative: Chest Pain Gastroenterology: Positive: Normal Negative: Melena Objective Active Medications: Albuterol (Ventolin Hfa Inhaler*) 2 puff INH Q4H PRN PRN Reason: SHORTNESS OF BREATH Albuterol/Ipratropium (Duoneb (Albuterol 2.5 Mg/Ipratropium 0.5 Mg)) 1 neb INH Q4H PRN PRN Reason: SOB/WHEEZING Ascorbic Acid (Vitamin C Tab*) 500 mg PO DAILY [facility] Last Admin: 02/26/19 09:07 Dose: 500 mg Aspirin (Aspirin 81 Mg Chew Tab*) 81 mg PO DAILY [facility] Last Admin: 02/26/19 09:07 Dose: 81 mg Atorvastatin Calcium (Lipitor*) 20 mg PO DAILY [facility] Last Admin: 02/26/19 09:07 Dose: 20 mg Cholecalciferol (Vitamin D Tab*) 5,000 units PO DAILY [facility] Last Admin: 02/26/19 09:08 Dose: 5,000 units Dextrose (D50w Syringe 50 Ml*) 12.5 gm IV PUSH .FOR FS < 60 - SS PRN PRN Reason: FS < 60 Fluticasone/Vilanterol (Breo Ellipta Mdi 200/25(Nf)) 1 puff INH DAILY [facility] Last Admin: 02/26/19 08:01 Dose: Not Given Furosemide (Lasix Iv*) 40 mg IV DAILY [facility] Last Admin: 02/26/19 09:09 Dose: 40 mg Insulin Human Lispro (Humalog*) 0 units SUBCUT AC [facility]; Protocol Last Admin: 02/26/19 09:06 Dose: 3 units Losartan Potassium (Cozaar Tab*) 100 mg PO DAILY [facility] Last Admin: 02/26/19 09:08 Dose: 100 mg Magnesium Oxide (Magox 400 Tab*) 800 mg PO BEDTIME [facility] Metformin HCl (Glucophage*) 1,000 mg PO BID [facility] Last Admin: 02/26/19 09:08 Dose: 1,000 mg Montelukast Sodium (Singulair Tab*) 10 mg PO DAILY [facility] Last Admin: 02/26/19 09:07 Dose: 10 mg Multivitamins/Minerals (Theragran/Minerals Tab*) 1 tab PO DAILY [facility] Last Admin: 02/26/19 09:07 Dose: 1 tab Pantoprazole Sodium (Protonix Iv*) 40 mg IV DAILY [facility] Last Admin: 02/26/19 09:08 Dose: 40 mg Prednisone (Deltasone Tab*) 5 mg PO DAILY [facility] Last Admin: 02/26/19 09:07 Dose: 5 mg Tamsulosin HCl (Flomax Cap*) 0.4 mg PO DAILY [facility] Last Admin: 02/26/19 09:07 Dose: 0.4 mg Warfarin Sodium (Coumadin Tab(*)) 3 mg PO DAILY [facility]; Protocol Last Admin: 02/26/19 09:07 Dose: 3 mg Vital Signs - 8 hr 02/26/19 02/26/19 02/26/19 03:59 04:01 04:28 Temperature 37.3 C Pulse Rate 46 44 45 Respiratory 17 16 20 Rate Blood Pressure 159/73 159/73 (mmHg) O2 Sat by Pulse 95 95 90 Oximetry 02/26/19 02/26/19 02/26/19 04:58 07:27 08:00 Temperature 36.3 C 36.8 C Pulse Rate 46 44 Respiratory 20 16 20 Rate Blood Pressure 141/71 150/70 (mmHg) O2 Sat by Pulse 96 98 Oximetry Oxygen Devices in Use Now: Nasal Cannula Appearance: alert, no distress Ears/Nose/Mouth/Throat: Clear Oropharnyx Neck: No Thyroid Enlargement, Masses Respiratory: Clear to Percussion, - - diminished bilat Abdominal: NL Sounds; No Tenderness; No Distention Lymphatic: No Cervical Adenopathy Extremities: - - 1+edema bilat LE Lines/Tubes/Other Access: Clean, Dry and Intact Peripheral IV Nutrition: Taking PO's Result Diagrams: 02/26/19 00:11 02/26/19 00:11 Additional Lab and Data: Laboratory Tests 02/26/19 02/26/19 02/26/19 00:11 04:06 04:06 INR (Anticoag Therapy) 2.49 H POC Glucose (mg/dL) Troponin I 0.05 H* B-Natriuretic Peptide 480 H 02/26/19 02/26/19 02/26/19 05:51 07:57 08:55 INR (Anticoag Therapy) POC Glucose (mg/dL) 159 H Troponin I 0.04 H* 0.04 H* B-Natriuretic Peptide Microbiology and Other Data: Microbiology 02/25/19 23:47 Stool Occult Blood (JUNG) - Final Stool Assess/Plan/Problems-Billing Assessment: 83 year old with COPD, DM, here for CHF exacerbation - Patient Problems (1) CHF exacerbation Current Visit: Yes Status: Acute Code(s): I50.9 - HEART FAILURE, UNSPECIFIED SNOMED Code(s): 09326791 Comment: -Acute, unclear whether systolic or diastolic. -Will have echocardiogram today -mildly elevated troponin due to demand ischemia (2) Bradycardia Current Visit: Yes Status: Acute Priority: Medium Code(s): R00.1 - BRADYCARDIA, UNSPECIFIED SNOMED Code(s): 35718104 Comment: -metoprolol held today -discussed indications with patient and family (3) COPD (chronic obstructive pulmonary disease) Current Visit: Yes Status: Acute Priority: Medium Code(s): J44.9 - CHRONIC OBSTRUCTIVE PULMONARY DISEASE, UNSPECIFIED SNOMED Code(s): 20261024 Comment: -no clear exacerbation -Will use spiriva, Breo, prednisone daily -can work on tapering prednisone as outpatient -use albuterol PRN only not standing (4) Rectal bleeding Current Visit: Yes Status: Acute Priority: Medium Code(s): K62.5 - HEMORRHAGE OF ANUS AND RECTUM SNOMED Code(s): 30111441 Comment: -may have hemorroidal bleeding -recheck CBC in AM Status and Disposition: probable discharge tomorrow
[2019-02-26] MEDS: Tiotropium CAP.INH* CAP.INH/18 MCG (USE ORDER SET !) INH SCH (12:49)
[2019-02-26] MEDS ORDERED: Spiriva Inhaler DEVICE* 1 EACH DEVICE INH SCH (13:00)
--- NOTE | 2019-02-26 17:00 | PN ---
Subjective Date of Service: 02/26/19 Interval History: Patient feels breathing is better this morning. Denies chest pain. Family present, had many questions about prednisone, albuterol, Breo, spiriva, lasix, metoprolol. Feels nebulizer albuterol causes throat to be too dry. On prednisone chronically through Dr. Mancilla. Has had bradycardia on metoprolol as outpatient. Sees Dr. Hay for cardiology. Family History: Unchanged from Admission Social History: Unchanged from Admission Past Medical History: Unchanged from Admission Objective Active Medications: Albuterol (Ventolin Hfa Inhaler*) 2 puff INH Q4H PRN PRN Reason: SHORTNESS OF BREATH Ascorbic Acid (Vitamin C Tab*) 500 mg PO DAILY [facility] Last Admin: 02/26/19 09:07 Dose: 500 mg Aspirin (Aspirin 81 Mg Chew Tab*) 81 mg PO DAILY [facility] Last Admin: 02/26/19 09:07 Dose: 81 mg Atorvastatin Calcium (Lipitor*) 20 mg PO DAILY [facility] Last Admin: 02/26/19 09:07 Dose: 20 mg Cholecalciferol (Vitamin D Tab*) 5,000 units PO DAILY [facility] Last Admin: 02/26/19 09:08 Dose: 5,000 units Device (Tiotropium Inhaler Device*) 1 each INH .USE w/ SPIRIVA CAPS [facility] Dextrose (D50w Syringe 50 Ml*) 12.5 gm IV PUSH .FOR FS < 60 - SS PRN PRN Reason: FS < 60 Fluticasone/Vilanterol (Breo Ellipta Mdi 200/25(Nf)) 1 puff INH DAILY [facility] Last Admin: 02/26/19 08:01 Dose: Not Given Furosemide (Lasix Iv*) 40 mg IV DAILY [facility] Last Admin: 02/26/19 09:09 Dose: 40 mg Insulin Human Lispro (Humalog*) 0 units SUBCUT AC [facility]; Protocol Last Admin: 02/26/19 12:14 Dose: Not Given Losartan Potassium (Cozaar Tab*) 100 mg PO DAILY [facility] Last Admin: 02/26/19 09:08 Dose: 100 mg Magnesium Oxide (Magox 400 Tab*) 800 mg PO BEDTIME [facility] Metformin HCl (Glucophage*) 1,000 mg PO BID [facility] Last Admin: 02/26/19 09:08 Dose: 1,000 mg Montelukast Sodium (Singulair Tab*) 10 mg PO DAILY [facility] Last Admin: 02/26/19 09:07 Dose: 10 mg Multivitamins/Minerals (Theragran/Minerals Tab*) 1 tab PO DAILY [facility] Last Admin: 02/26/19 09:07 Dose: 1 tab Pantoprazole Sodium (Protonix Tab*) 40 mg PO DAILY [facility] Prednisone (Deltasone Tab*) 5 mg PO DAILY [facility] Last Admin: 02/26/19 09:07 Dose: 5 mg Tamsulosin HCl (Flomax Cap*) 0.4 mg PO DAILY [facility] Last Admin: 02/26/19 09:07 Dose: 0.4 mg Tiotropium Frohna (Spiriva Cap.Inh*) 1 cap INH DAILY [facility] Last Admin: 02/26/19 12:49 Dose: 1 cap Warfarin Sodium (Coumadin Tab(*)) 3 mg PO DAILY [facility]; Protocol Last Admin: 02/26/19 09:07 Dose: 3 mg Vital Signs - 8 hr 02/26/19 02/26/19 09:51 15:46 Temperature 36.6 C Pulse Rate 38 Respiratory 18 Rate Blood Pressure 117/55 (mmHg) O2 Sat by Pulse 94 94 Oximetry Oxygen Devices in Use Now: Nasal Cannula Appearance: -no acute distress Ears/Nose/Mouth/Throat: NL Teeth, Lips, Gums Neck: NL Appearance and Movements; NL JVP Respiratory: Symmetrical Chest Expansion and Respiratory Effort, - - diminished throughout Cardiovascular: NL Sounds; No Murmurs; No JVD Abdominal: NL Sounds; No Tenderness; No Distention Extremities: - - 1+ edema bilat Neurological: Alert and Oriented x 3 Lines/Tubes/Other Access: Clean, Dry and Intact Peripheral IV Nutrition: Taking PO's Result Diagrams: 02/26/19 00:11 02/26/19 00:11 Additional Lab and Data: Laboratory Tests 02/26/19 02/26/19 02/26/19 00:11 04:06 04:06 INR (Anticoag Therapy) 2.49 H POC Glucose (mg/dL) Troponin I 0.05 H* B-Natriuretic Peptide 480 H 02/26/19 02/26/19 02/26/19 05:51 07:57 08:55 INR (Anticoag Therapy) POC Glucose (mg/dL) 159 H Troponin I 0.04 H* 0.04 H* B-Natriuretic Peptide Microbiology and Other Data: Microbiology 02/25/19 23:47 Stool Occult Blood (JUNG) - Final Stool Assess/Plan/Problems-Billing Assessment: 83 year old with COPD, DM, here for CHF exacerbation - Patient Problems (1) CHF exacerbation Current Visit: Yes Status: Acute Priority: High Code(s): I50.9 - HEART FAILURE, UNSPECIFIED SNOMED Code(s): 56254045 Comment: -Acute, unclear whether systolic or diastolic. -Will have echocardiogram today -mildly elevated troponin due to demand ischemia (2) Bradycardia Current Visit: Yes Status: Acute Priority: Medium Code(s): R00.1 - BRADYCARDIA, UNSPECIFIED SNOMED Code(s): 14805213 Comment: -metoprolol held today -discussed indications with patient and family (3) COPD (chronic obstructive pulmonary disease) Current Visit: Yes Status: Acute Priority: Medium Code(s): J44.9 - CHRONIC OBSTRUCTIVE PULMONARY DISEASE, UNSPECIFIED SNOMED Code(s): 05953491 Comment: -no clear exacerbation -Will use spiriva, Breo, prednisone daily -can work on tapering prednisone as outpatient -use albuterol PRN only not standing (4) Rectal bleeding Current Visit: Yes Status: Acute Priority: Medium Code(s): K62.5 - HEMORRHAGE OF ANUS AND RECTUM SNOMED Code(s): 92746573 Comment: -may have hemorroidal bleeding -recheck CBC in AM Status and Disposition: probable discharge tomorrow
[2019-02-26] MEDS ORDERED: Furosemide IV* 10 MG/ML VIAL (40 MG) IV ONE (20:41)
[2019-02-26] MEDS ORDERED: Magnesium Oxide TAB* 400 MG PO SCH (21:00)
[2019-02-27 06:54] LABS: INR 2.83 (0.77-1.02)
[2019-02-27 06:56] LABS: ABS Basophils 0 10^3/ul (0-0.2); ABS Eosinophils 0.2 10^3/ul (0-0.6); ABS Lymphocytes 2.2 10^3/ul (1.0-4.8); ABS Nucleated RBC 0 10^3/ul; Hematocrit 37 % (36-46); Hemoglobin 12.3 g/dL (14.0-18.0); Lymphocyte % 25.6 %; Mean Corpuscular HGB Conc 33 g/dL (31-36); Mean Corpuscular Hemoglobin 30 pg (27-31); Mean Corpuscular Volume 91 fL (80-94); Mean Platelet Volume 8.8 fL (7.4-10.4); Nucleated Red Blood Cells % 0; Platelet Count 119 10^3/uL (150-450); Red Blood Count 4.07 10^6 /uL (4.18-5.48); Red Cell Distribution Width 15 % (10.5-15); White Blood Count 8.4 10^3/uL (3.5-10.8)
[2019-02-27 06:58] LABS: BUN/Creatinine Ratio 36.7 (8-20); Calcium 9.3 mg/dL (8.6-10.3); EGFR African American 78.2 (>60); EGFR Non-African American 64.6 (>60); Potassium 4.1 mmol/L (3.5-5.0)
[2019-02-27 07:36] VITALS: BP 138/64
[2019-02-27] MEDS ORDERED: Perflutren Lipid Microsphere* 3 ML VIAL ONE (08:20)
[2019-02-27] MEDS: PTO: Fluticasone/Vilanterol MDI(NF) 200/25 MDI INH SCH (08:40)
[2019-02-27] MEDS: Tiotropium CAP.INH* CAP.INH/18 MCG (USE ORDER SET !) INH SCH (08:40)
[2019-02-27] MEDS ORDERED: Pantoprazole TAB * 40 MG TAB PO SCH (09:00)
[2019-02-27] MEDS: predniSONE TAB* 5 MG PO SCH (09:14)
[2019-02-27] MEDS: Losartan TAB* 25 MG PO SCH (09:14)
[2019-02-27] MEDS: Aspirin 81 mg CHEW TAB* 81 MG TAB.CHEW PO SCH (09:14)
[2019-02-27] MEDS: metFORMIN* 1,000 MG TAB PO SCH (09:14)
[2019-02-27] MEDS: Ascorbic Acid TAB* 500 MG PO SCH (09:14)
[2019-02-27] MEDS: Furosemide IV* 10 MG/ML VIAL (40 MG) IV SCH (09:14)
[2019-02-27] MEDS: Cholecalciferol TAB* 1000 UNITS PO SCH (09:14)
[2019-02-27] MEDS: Multivitamins/Minerals TAB PO SCH (09:14)
[2019-02-27] MEDS: Montelukast Sodium TAB* 10 MG PO SCH (09:15)
[2019-02-27] MEDS: Atorvastatin* 20 MG TAB PO SCH (09:15)
[2019-02-27] MEDS: Tamsulosin CAP* 0.4 MG PO SCH (09:15)
[2019-02-27] MEDS: Insulin LISPRO* 1 UNITS UNIT SUBCUT SCH (09:16)
[2019-02-27] MEDS: Warfarin TAB(*) 3 MG PO SCH (09:20)
--- NOTE | 2019-02-27 12:34 | ECHO ---
Patient: GUZMAN BARTH [facility] Rec#: [id number] : 1935 Date: 02/27/2019 Age: 83y Height: 175 cm / 68.9 in Weight: 102.5 kg / 225.9 lbs Sex: M BSA: 2.17 Room#: [facility] Admit Date#: 02/26/2019 Type: Inpatient Referring: LISETH CUEVAS D Reading: Harvey Castro MD Laborer/Grade Check: Kamini Melissa,RDCS,RDMS CC: Grayson DUNCAN,Abel Transthoracic Echocardiogram Indication: CHF BP: 143/64 HR: 44 Rhythm: Bradycardia Findings History: TAVR, AOV stenosis, AFIB, CHF, COPD, HTN, HLD, DM, CLL, GELACIO Technical Comments: The study quality is fair. The study is technically limited due to poor apical windows. Left Ventricle: The left ventricular chamber size is normal. Mild concentric left ventricular hypertrophy is observed. Global left ventricular wall motion and contractility are within normal limits. The estimated ejection fraction is greater than 65%. The assessment of diastolic function is non-diagnostic. Left Atrium: The left atrium is severely dilated. Right Ventricle: Moderator Band present. The right ventricle is mild to moderately dilated. The right ventricular global systolic function is mildly to moderately reduced. Right Atrium: The right atrial cavity size is severely dilated. Aortic Valve: There is no evidence of aortic regurgitation. The mean gradient of the aortic valve is 8 mmHg. The aortic valve area, by peak velocities, is calculated at 1.7 cm2. A bio-prosthetic aortic valve is present. The bio-prosthetic aortic valve appears to be functioning normally. Mitral Valve: Moderate mitral annular calcification present. The mitral valve leaflets are mildly thickened. Mitral valve leaflet mobility is mildly restricted. There is mild mitral regurgitation. There is borderline mitral stenosis. Tricuspid Valve: There is severe tricuspid regurgitation. The right ventricular systolic pressure is estimated at 53 mmHg. There is evidence of moderate pulmonary hypertension. Pulmonic Valve: The pulmonic valve appears normal. There is a trace pulmonic regurgitation. Pericardium: A trivial pericardial effusion is visualized. A left pleural effusion is present. Aorta: The aortic root appears normal. There is no dilatation of the aortic arch. Pulmonary Artery: The main pulmonary artery appears normal. Venous: The inferior vena cava is dilated. There is no change in the dimension of the inferior vena cava with respiration consistent with markedly increased right atrial pressure. Contrast: Definity was used to optimize study. A total of 3 ml was used. Conclusions Mild concentric left ventricular hypertrophy is observed. The estimated ejection fraction is greater than 65%. The left atrium is severely dilated. The right ventricle is mild to moderately dilated. The right ventricular global systolic function is mildly to moderately reduced. The right atrial cavity size is severely dilated. The bio-prosthetic aortic valve appears to be functioning normally. The right ventricular systolic pressure is estimated at 53 mmHg. There is evidence of moderate pulmonary hypertension. Moderate mitral annular calcification present. Mitral valve leaflet mobility is mildly restricted. There is mild mitral regurgitation. Similar to the prior study of 08/01. Measurements Name Value Normal Range RVIDd (AP) 2D 4.5 cm (0.9 - 2.6) RVDdMajor (2D) 4.4 cm (2.2 - 4.4) RAd ISD 4CH 7.7 cm (3.4 - 4.9) RA (A4C)W 6.2 cm (2.9 - 4.6) IVSd (2D) 1.2 cm (0.6 - 1) LVPWd (2D) 1.2 cm (0.6 - 1) LVIDd (2D) 4.4 cm (3.6 - 5.4) LVIDs (2D) 2 cm - LV FS (2D) 56 % (25 - 45) Aortic Annulus 2 cm (1.4 - 2.6) Ao root diameter (2D) 2.4 cm (2.1 - 3.5) Ascending Ao 3 cm (2.1 - 3.4) Aortic arch 3 cm (1.8 - 3.4) LA dimension (AP) 2D 5.5 cm (2.3 - 3.8) LAd ISD 4CH 8.2 cm (2.9 - 5.3) LA ISD 4CH W 5.7 cm (2.5 - 4.5) Name Value Normal Range LA ESV BP (A/L) index 81 ml/m2 - Name Value Normal Range MV E-wave Vmax 1.2 m/sec - MV deceleration time 156 msec - MV A-wave Vmax 0.5 m/sec - MV E:A ratio 2.4 ratio - LV septal e' Vmax 0.06 m/sec - LV lateral e' Vmax 0.08 m/sec - LV E:e' septal ratio 20 ratio - LV E:e' lateral ratio 16 ratio - Name Value Normal Range AV Vmax 1.9 m/sec - AV VTI 47 cm - AV peak gradient 15 mmHg - AV mean gradient 8 mmHg - LVOT diameter 2 cm - LVOT Vmax 1 m/sec - LVOT VTI 23 cm - LVOT peak gradient 4 mmHg - LVOT mean gradient 2 mmHg - DOI (VTI) 0.2 ratio - TRISTA (continuity Vmax) 1.7 cm2 - TRISTA (continuity VTI) 1.5 cm2 - Name Value Normal Range MV Vmax 1.8 m/sec - MV VTI 52 cm - MV peak gradient 13 mmHg - MV mean gradient 2 mmHg - MV PHT 78 msec - MVA (PHT) 2.8 cm2 - MVA (continuity VTI) 1.4 cm2 - Name Value Normal Range TR Vmax 2.9 m/sec - TR peak gradient 33 mmHg - RAP 20 mmHg - RVSP 53 mmHg - IVC diameter 3.8 cm - Name Value Normal Range PV Vmax 0.7 m/sec - PV peak gradient 2 mmHg -
--- NOTE | 2019-02-28 16:13 | DS ---
CC: Dr. Mancilla; Dr. Hay; Dr. Galicia * DISCHARGE SUMMARY: DATE OF ADMISSION: 02/26/19 DATE OF DISCHARGE: 02/27/19 PRIMARY DIAGNOSIS: Acute exacerbation of chronic diastolic heart failure. SECONDARY DIAGNOSES: 1. Possible cor pulmonale. 2. Chronic obstructive pulmonary disease. 3. Obstructive sleep apnea, not compliant with BiPAP. 4. Chronic atrial fibrillation. 5. Aortic stenosis, status post aortic valve replacement. 6. Chronic lymphocytic leukemia, on surveillance. 7. Type 2 diabetes. 8. Benign prostatic hypertrophy. 9. Hypertension. 10. Hyperlipidemia. MEDICATIONS ON DISCHARGE: 1. Acetaminophen 500 mg as needed. 2. Albuterol MDI 2 puffs q.4 hours p.r.n. wheezing. 3. Vitamin C 500 mg p.o. q. day. 4. Aspirin 81 mg p.o. q. day. 5. Atorvastatin 20 mg p.o. q. h.s. 6. Vitamin D3, 5000 units p.o. q. day. 7. Breo Ellipta one inhalation q. day. 8. Furosemide 20 mg p.o. b.i.d. 9. Glucosamine/chondroitin tablet daily. 10. Losartan 100 mg p.o. q. day. 11. Magnesium oxide 800 mg p.o. q. h.s. 12. Metformin 1000 mg p.o. b.i.d. 13. Montelukast 10 mg p.o. q. a.m. 14. Multivitamin one tab p.o. q. day. 15. Prednisone 5 mg p.o. q. day. 16. Tamsulosin 0.4. mg p.o. q. day. 17. Terbinafine 250 mg p.o. q. day. 18. Spiriva Respimat 2.5 mcg inhaled daily. 19. Triamcinolone topical as needed. 20. Warfarin 3 mg p.o. q. day. The only new medication is metolazone 5 mg p.o. q. a.m., only to be used if weight is above his baseline weight at home. His weight on discharge from the hospital was 225 pounds on our scale. HOSPITAL COURSE: The patient presented with actually chief complaint of rectal bleeding. He had some bright red blood per rectum and was on warfarin. This was suspected to be mild diverticular or hemorrhoidal bleeding and it did not continue through the hospital stay. His initial hemoglobin was 12.4 and his repeat hemoglobin was 12.3. The patient's INR was monitored. Initial INR was 2.51 and it was 2.83 on discharge. While in the emergency room, the patient was assessed to have congestive heart failure exacerbation. His BNP was 480, which was above his baseline of 150 to 280. The patient was diuresed initially with intravenous Lasix. The patient's serial weights did not show a decrease in weight, but he did have a negative urine output on day 2 of the hospital stay. The patient's breathing improved. Repeat echocardiogram showed ejection fraction of 65% and functioning prosthetic aortic valve. There was elevated pressures in the right ventricle and right ventricular systolic dysfunction consistent with cor pulmonale. There were no significant changes in the echo compared to one occurred in the office in July of last year. The patient was educated on low-sodium diet as well as monitoring weight daily and calling primary care or Cardiology if the weight increase 2 pounds above the baseline. The patient was given additional instruction and his family on new diuretic to take if the weight goes out of control. He did report that he knew he had been gaining weight rapidly prior to admission, but did not know what to do about it, he had gone from 210 up to 220 pounds as an outpatient. DISPOSITION: To home. CONDITION: Stable. STATUS IN HOSPITAL: Observation status on inpatient. DIET: Should be low sodium. ACTIVITY: Should be as tolerated. FOLLOWUP: Should be within [address] Galicia and within 2 to [address] Hay. [id number]/[facility] #: [id number] [facility]
== END 2019-02-27 12:46 | disposition home or self-care (01) ==
LOC: ED 22:52 → INTOOBSV 02-26 02:51 → MEDTELE 02-26 02:51
PROVIDERS: ADMIT Internal Medicine; ATTEND Internal Medicine
DX: 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 heart failure (principal); I50.32 Chronic diastolic (congestive) heart failure; R06.02 Shortness of breath; J44.9 Chronic obstructive pulmonary disease, unspecified; G47.33 Obstructive sleep apnea (adult) (pediatric); I48.2 Chronic atrial fibrillation; I35.0 Nonrheumatic aortic (valve) stenosis; Z95.4 Presence of other heart-valve replacement; C91.10 Chronic lymphocytic leukemia of B-cell type not having achieved remission; E11.9 Type 2 diabetes mellitus without complications; N40.0 Benign prostatic hyperplasia without lower urinary tract symptoms; E78.5 Hyperlipidemia, unspecified; Z79.82 Long term (current) use of aspirin; Z79.01 Long term (current) use of anticoagulants; R00.1 Bradycardia, unspecified; K62.5 Hemorrhage of anus and rectum; R60.9 Edema, unspecified; I43 Cardiomyopathy in diseases classified elsewhere; Z88.0 Allergy status to penicillin; Z87.891 Personal history of nicotine dependence; Z79.899 Other long term (current) drug therapy
CPT/HCPCS: 36415; 71045; 80048; 80053; 82270; 83880; 84484; 85025; 85610; 85730; 86140; 86850; 86900; 86901; 93005; 93306; 94640; 94762; 96374; 96375; 99283; A9270-GY; C8929; G0378; J1720; J1940; J7512

== ENCOUNTER 2019-06-02 14:02 | Inpatient (IN) | payer MEDICARE, OTHER ==
--- NOTE | 2019-06-02 15:12 | ED ---
Lower Extremity - HPI Summary HPI Summary: This patient is a 84 year old M presenting to ED with a chief complaint of left plantar surface wound infection since a week ago. Patient had a similar wound on the same spot last winter and it healed. He does not know how he got the wound. Patient is not currently on antibiotics. The pain is described as sharp. Patient is borderline diabetic and has peripheral vascular disease. The patient rates the pain 8/10 in severity. Symptoms aggravated by applied pressure on foot. Symptoms alleviated by nothing. Patient reports fever, chills, LLE swelling. - History of Current Complaint Chief Complaint: EDExtremityLower Stated Complaint: LT FOOT INFECTION PER PT Time Seen by Provider: 06/02/19 14:49 Hx Obtained From: Patient Mechanism Of Injury: Unknown Onset of Pain: Days - 1 week Onset/Duration: Still Present Severity Initially: Severe Severity Currently: Severe Pain Intensity: 8 Pain Scale Used: 0-10 Numeric Timing: Constant Location: Is Discrete @ - L foot Character Of Pain: Sharp Associated Signs And Symptoms: Positive: Swelling - LLE swelling, Fever, Other - Chills Aggravating Factor(s): Other - Pressure on foot Alleviating Factor(s): Nothing - Allergies/Home Medications Allergies/Adverse Reactions: Allergies Allergy/AdvReac Type Severity Reaction Status Date / Time nut - unspecified Allergy Swelling Verified 06/02/19 14:09 Of Face,Lips,& Throat Penicillins Allergy Swelling Verified 06/02/19 14:09 ramipril [From Altace] Allergy Coughing Verified 06/02/19 14:09 PMH/Surg Hx/FS Hx/Imm Hx Endocrine/Hematology History: Reports: Hx Diabetes - type II Denies: Hx Thyroid Disease Cardiovascular History: Reports: Hx Hypertension, Hx Peripheral Vascular Disease , Other Cardiovascular Problems/Disorders - On list for TAVR Denies: Hx Pacemaker/ICD Respiratory History: Reports: Hx Asthma Denies: Hx Chronic Obstructive Pulmonary Disease (COPD) GI History: Denies: Hx Ulcer History: Denies: Hx Renal Disease Sensory History: Reports: Hx Contacts or Glasses - glasses Denies: Hx Hearing Aid Opthamlomology History: Reports: Hx Contacts or Glasses - glasses Psychiatric History: Denies: Hx Panic Disorder - Cancer History Cancer Type, 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 - Surgical History Surgery Procedure, Year, and Place: AORTIC VALVE REPLACEMENT- TAVR- [facility] (COND.8 PER MRISAFETY LIST) 06/15/18. 03/2018 [facility]. Appendectomy,. nose surgery - DEVIATED SEPTUM. Rt shoulder torn rotator cuff repair Infectious Disease History: No Infectious Disease History: Denies: Hx Hepatitis, Hx Human Immunodeficiency Virus (HIV), Traveled Outside the [place] in Last 30 Days - Family History Known Family History: Positive: Hypertension, Other - Cancer - Social History Alcohol Use: Weekly Alcohol Amount: LAST DRINK TUESDAY NIGHT Hx Substance Use: No Substance Use Type: Reports: None Hx Tobacco Use: No Smoking Status (MU): Former Smoker Review of Systems Positive: Fever, Chills Musculoskeletal: Other - L foot pain, LLE swelling All Other Systems Reviewed And Are Negative: Yes Physical Exam - Summary Physical Exam Summary: GENERAL: Patient is a well-developed and nourished M who is lying comfortable in the stretcher. Patient is not in any acute respiratory distress. HEAD AND FACE: Normocephalic EYES: PERRLA, EOMI x 2. EARS: Hearing grossly intact. MOUTH: Oropharynx within normal limits. NECK: Supple, trachea is midline, no adenopathy, no JVD, no carotid bruit. CHEST: Symmetric, no tenderness at palpation LUNGS: Clear to auscultation bilaterally. No wheezing or crackles. CVS: chronic venous stasis changes ABDOMEN: Soft, non-tender. Bowel sounds are normal. No abnormal abdominal pulsations. EXTREMITIES: Ulcer to lateral aspect of L foot, no obvious drainage. Cellulitis to dorsal aspect of L foot laterally. 1+ pitting edema bilaterally. NEURO: Alert and oriented x 3. No acute neurological deficits. Speech is normal and follows commands. SKIN: Dry and warm Triage Information Reviewed: Yes Vital Signs On Initial Exam: Initial Vitals Temp Pulse Resp BP Pulse Ox 100.8 F 80 18 132/96 92 06/02/19 14:03 06/02/19 14:03 06/02/19 14:03 06/02/19 14:03 06/02/19 14:03 Vital Signs Reviewed: Yes Diagnostics - Vital Signs Vital Signs Temp Pulse Resp BP Pulse Ox 06/02/19 14:03 100.8 F 80 18 132/96 92 - Laboratory Result Diagrams: 06/03/19 06:04 06/03/19 06:04 Lab Statement: Any lab studies that have been ordered have been reviewed, and results considered in the medical decision making process. - Radiology L foot XR Radiology Interpretation Completed By: Radiologist Summary of Radiographic Findings: Soft tissue swelling at the fifth metatarsophalangeal joint with osteopenia at the head of the fifth metatarsal proximal phalanx of the fifth digit. Underlying osteomyelitis is not excluded. Dr. Eden has reviewed this radiology report. Lower Extremity Course/Dx - Course Course Of Treatment: This patient is a 84 year old M presenting to ED with a chief complaint of left plantar surface wound infection since a week ago. L foot XR revealed soft tissue swelling at the fifth metatarsophalangeal joint with osteopenia at the head of the fifth metatarsal proximal phalanx of the fifth digit. Underlying osteomyelitis is not excluded. In the ED course, patient received fluids, Cleocin, Maxipime. Blood work and UA obtained. Discussed patient case with Dr. Cortez, hospitalist, who accepted the patient for admission to [facility] [place]. I discussed results with patient. The patient agrees with this plan. Patient will be admitted to [facility] [place] with dx of infected wound. - Diagnoses Provider Diagnoses: Infected wound - Physician Notifications Discussed Care Of Patient With: Roosevelt Cortez Time Discussed With Above Provider: 17:20 Instructed by Provider To: Admit As Inpatient - Discussed patient case with Dr. Cortez, hospitalist, who accepted the patient for admission to [facility] [place]. Discharge - Sign-Out/Discharge Documenting (check all that apply): Patient Departure - Admit Patient Received Moderate/Deep Sedation with Procedure: No - Discharge Plan Condition: Good Disposition: ADMITTED TO [facility] - Billing Disposition and Condition Condition: GOOD Disposition: Admitted to [facility] - Attestation Statements Document Initiated by Mary: Yes Documenting Scribe: Napoleon Albrecht Provider For Whom Mary is Documenting (Include Credential): Homa Eden MD Scribe Attestation: Napoleon Richardson, scribed for Homa Eden MD on 06/03/19 at 1050. Scribe Documentation Reviewed: Yes Provider Attestation: The documentation as recorded by the Napoleon dobbins accurately reflects the service I personally performed and the decisions made by me, Homa Eden MD Status of Scribe Document: Viewed
[2019-06-02] MEDS ORDERED: NS 0.9% 1000 ML** 1,000 ML IV ONE (15:15)
[2019-06-02] MEDS ORDERED: Clindamycin 900 MG IVPREMIX(* 900 MG/50 ML SDV IV ONE (15:15)
[2019-06-02] MEDS ORDERED: Cefepime 2 GM in Dextrose(*) 2 GM/50 ML BAG IV ONE (15:16)
[2019-06-02 15:26] LABS: ABS Eosinophils 0.1 10^3/ul (0-0.6); ABS Monocytes 1.1 10^3/ul (0-0.8); ABS Neutrophils 9.7 10^3/ul (1.5-7.7); Eosinophil % 0.8 %; Hematocrit 37 % (42-52); Hemoglobin 12.5 g/dL (14.0-18.0); Lymphocyte % 8.5 %; Mean Corpuscular HGB Conc 34 g/dL (31-36); Mean Corpuscular Hemoglobin 31 pg (27-31); Mean Corpuscular Volume 90 fL (80-94); Mean Platelet Volume 7.6 fL (7.4-10.4); Platelet Count 160 10^3/uL (150-450); Red Blood Count 4.05 10^6 /uL (4.18-5.48); Red Cell Distribution Width 16 % (10-15)
[2019-06-02 15:34] LABS: Activated Partial Thrombo Time 47.3 seconds (26.0-38.0); INR 2.62 (0.82-1.09)
[2019-06-02 15:41] LABS: Albumin 4.3 g/dL (3.2-5.2); Albumin/Globulin Ratio 1.5 (1-3); BUN/Creatinine Ratio 19.6 (8-20); C Reactive Protein 2.56 mg/L (<8.01); Calcium 9.5 mg/dL (8.6-10.3); EGFR African American 79.7 (>60); EGFR Non-African American 65.8 (>60); Globulin 2.9 g/dL (2-4); Potassium 4.4 mmol/L (3.5-5.0); Total Bilirubin 1.1 mg/dL (0.2-1.0); Total Protein 7.2 g/dL (6.4-8.9)
[2019-06-02 16:06] LABS: Urine Appearance Clear; Urine Bilirubin Negative (Negative); Urine Blood Negative (Negative); Urine Color Yellow; Urine Glucose Negative (Negative); Urine Ketones Negative (Negative); Urine Nitrite Negative (Negative); Urine Protein Negative (Negative); Urine Specific Gravity 1.016 (1.010-1.030); Urine Urobilinogen Negative (Negative)
[2019-06-02 16:39] LABS: Erythrocyte Sed Rate 16 mm/Hr (0-19)
[2019-06-02] MEDS ORDERED: Albuterol HFA INHALER* 8 gm MDI INH PRN (19:04)
[2019-06-02] MEDS ORDERED: Cefepime 2 GM in Dextrose(*) 2 GM/50 ML BAG IV SCH (20:00)
[2019-06-02] MEDS: Magnesium Oxide TAB* 400 MG PO SCH (21:40)
[2019-06-02] MEDS: Losartan TAB* 25 MG PO SCH (21:41)
[2019-06-02] MEDS: Tamsulosin CAP* 0.4 MG PO SCH (21:41)
--- NOTE | 2019-06-02 21:41 | HP ---
CC: Dr. Galicia * HISTORY AND PHYSICAL: DATE OF ADMISSION: 06/02/19 PRIMARY CARE PROVIDER: Dr. Galicia. ATTENDING PHYSICIAN: Dr. Marley * (dictated by Tg Gordon NP). CHIEF COMPLAINT: Left foot wound. HISTORY OF PRESENT ILLNESS: Mr. Redmond is an 84-year-old male with a past medical history significant for atrial fibrillation, heart failure with preserved ejection fraction, aortic stenosis; status post AVR, COPD, CLL, non- insulin-dependent diabetes, BPH, GELACIO, hypertension, and hyperlipidemia who presented to the emergency department today with complaints of pain, redness, and swelling associated with a wound on his left lateral foot. The patient reports these symptoms started around , 05/31/19, of this week. While in the emergency room, the patient was noted to have a fever of 100.8. He was also noted to have leukocytosis with a white blood cell count of 12. Additionally, while in the emergency room, the patient had an x-ray of his left foot, which revealed soft tissue swelling of the fifth metatarsal joint with osteopenia at the head of the fifth metatarsal proximal phalanx of the fifth digit. Underlying osteomyelitis is not excluded. Given these findings and the patient's symptoms, the hospitalists were asked to consult for admission. PAST MEDICAL HISTORY: 1. Atrial fibrillation. 2. Heart failure with preserved ejection fraction. 3. Aortic stenosis. 4. Status post AVR. 5. COPD. 6. CLL. 7. Ukd-ceoxuaq-loudawyxi diabetes. 8. BPH. 9. GELACIO, the patient is not on CPAP, but wears 2 L nasal cannula at night. 10. Hypertension. 11. Hyperlipidemia. PAST SURGICAL HISTORY: 1. TAVR. 2. Appendectomy. 3. Rotator cuff repair. 4. Deviated septum repair. HOME MEDICATIONS: 1. Prednisone 5 mg p.o. daily. 2. Coumadin 3 to 4 mg p.o. daily. 3. Spiriva 2.5 mcg inhalation daily. 4. Flomax 0.4 mg p.o. daily. 5. Multivitamin 1 tab p.o. daily. 6. Singulair 10 mg p.o. daily. 7. Metolazone 5 mg p.o. daily p.r.n. 8. Magnesium oxide 800 mg p.o. at bedtime. 9. Losartan 100 mg p.o. daily. 10. Glucosamine 1500 mg p.o. daily. 11. Lasix 20 mg p.o. b.i.d. 12. Breo Ellipta 200/25 one puff inhalation daily. 13. Vitamin D3 at 5000 units p.o. daily. 14. Lipitor 20 mg p.o. daily. 15. Aspirin 81 mg p.o. daily. 16. Vitamin C 500 mg p.o. daily. 17. Albuterol 2 puffs inhalation q.4 hours p.r.n. 18. Tylenol Extra Strength 1 to 2 tabs p.r.n. ALLERGIES: NUTS, PENICILLIN, RAMIPRIL. FAMILY HISTORY: Mother due to heart disease and father due to pancreatic cancer. SOCIAL HISTORY: The patient is a former smoker. He reports he smoked less than 5 years. The patient reports infrequent alcohol use, approximately once a week. The patient denies drug use. 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 He lives with his . The patient uses a walker sometimes at night, but otherwise is independent in his ADLs. REVIEW OF SYSTEMS: A 14-point review of systems was performed and all pertinent positive and negative findings are in the HPI. All others are negative. PHYSICAL EXAMINATION GENERAL: Mr. Redmond is a well-developed, well-nourished elderly man who is sitting in bed. Appears stated age. Appears to be in no acute distress. VITAL SIGNS: Temp 100.8, pulse 60, O2 saturation 97% on room air, BP 142/74, respirations 18. HEENT: EOMs intact. PERRLA. Oral mucosa is moist without lesion. Posterior pharynx is clear. NECK: Supple. No lymphadenopathy. RESPIRATORY: Symmetrical chest expansion. No accessory muscle use. LUNGS: Clear to auscultation. No rhonchi, wheezes, or rubs. CARDIAC: Regular rate and rhythm. S1, S2 present. No murmurs, rubs, or gallops. ABDOMEN: Soft and nontender to palpation. Bowel sounds are normoactive. EXTREMITIES: Skin is warm and smooth bilaterally. The patient has +1 edema to left lower extremity. No edema noted to right lower extremity. No clubbing or cyanosis. Pedal pulses 2+ bilaterally. MUSCULOSKELETAL: Full range of motion. No pain or deformities. NEURO: The patient is awake, alert, and oriented x4. Motor strength is 5/5 in the upper and lower extremities. SKIN: The patient has redness to the left lateral foot surrounding a quarter- sized blackened fluid-filled pocket. Remainder of skin is intact. DIAGNOSTIC STUDIES/LABORATORY DATA: WBC 12.0, hemoglobin 12.5, hematocrit 37, platelets 160. INR 2.62. Sodium 133, potassium 4.4, chloride 98, carbon dioxide 28, BUN 21, creatinine 1.07, glucose 125. Lactic 1.2. Total bilirubin 1.10. ASSESSMENT AND PLAN: Mr. Redmond is an 84-year-old male with a past medical history significant for atrial fibrillation, heart failure, aortic stenosis, chronic obstructive pulmonary disease, diabetes, BPH, obstructive sleep apnea, hypertension, and hyperlipidemia who presented to the emergency department with complaints of left lower leg swelling, redness, and wound. The patient will be placed OBV. 1. Left foot wound and associated cellulitis: The patient reports he had a wound in this area previously in the winter and was seen in the wound clinic, but has healed well. The patient received cefepime and clindamycin while in the emergency department. I will continue the patient on cefepime 2 g q.12 hours. The patient also had a culture sent of surrounding tissue. I would recommend a wound consult if possible, inpatient or outpatient. 2. Sepsis: The patient meets sepsis criteria with a temp of 100.8, leukocytosis, and known source. The patient received antibiotics, IV fluids, and was pancultured in the emergency room. We will continue to monitor the patient. We will be cautious in overly fluid resuscitating this patient given his history of heart failure. 3. Atrial fibrillation: The patient will be continued on his Coumadin and aspirin. 4. Heart failure with preserved ejection fraction: As mentioned above, we will be cautious about fluid resuscitation given the patient's history of heart failure. We will continue the patient on his losartan and aspirin. The patient does take Lasix daily at home and metolazone as needed. I will hold these currently given him meeting sepsis criteria and I will place the patient on daily weights and strict Is and Os. 5. Aortic stenosis, status post AVR: We will monitor the patient and continue his home medications. 6. Chronic obstructive pulmonary disease, on chronic prednisone: We will continue the patient's albuterol, Spiriva, Singulair, Breo, albuterol, and prednisone. The patient does not appear to be in exacerbation. We will monitor. 7. History of chronic lymphocytic leukemia, on surveillance: The patient should follow up with his primary care and specialist. 8. Diabetes: The patient is reported as a rib-rhlrmfv-mnjmpfkwe diabetic. He was previously on metformin, but he is no longer. We will monitor his sugar via daily BMPs. I will also order a hemoglobin A1c. 9. BPH: We will continue the patient's home medications of Flomax. 10. Obstructive sleep apnea, not on CPAP: The patient reports he is not on CPAP, but does wear 2 L nasal cannula at night. We will continue this. 11. Hypertension: The patient is currently normotensive. Given he is normotensive, I think it is reasonable to continue his losartan, but hold his Lasix and metolazone as previously discussed. If the patient becomes hypotensive, I would recommend stopping his losartan. 12. Hyperlipidemia: We will continue the patient's statin. 13. FEN: The patient will be placed on a consistent carb diet. 14. Code status: The patient is a full code. 15. Surrogate decision maker: The patient reports his , Lori, will be his surrogate decision maker in the event he could not make his decision for himself. Her number is [phone]. 16. DVT prophylaxis: Based on the DVT risk assessment, the patient is at high risk. I will continue the patient's Coumadin per pharmacy protocol. TIME SPENT: Approximately 65 minutes were spent on this admission, greater than half the time was spent [id number]-[id number] with the patient obtaining my history , performing physical exam, and reviewing my plan of care. This case has been reviewed with my attending, Dr. Marley, who is in agreement with my plan of care. Reviewed by TG GORDON, MARCI 729/19 @ [id number]/[facility] #: [id number] NIXON
[2019-06-02] MEDS: Cefepime 2 GM in Dextrose(*) 2 GM/50 ML BAG IV SCH (23:20)
[2019-06-03 06:23] LABS: ABS Eosinophils 0.2 10^3/ul (0-0.6); ABS Lymphocytes 1.1 10^3/ul (1.0-4.8); ABS Neutrophils 5.1 10^3/ul (1.5-7.7); Eosinophil % 2.6 %; Hematocrit 35 % (42-52); Hemoglobin 11.8 g/dL (14.0-18.0); Mean Corpuscular HGB Conc 34 g/dL (31-36); Mean Corpuscular Hemoglobin 31 pg (27-31); Mean Corpuscular Volume 91 fL (80-94); Mean Platelet Volume 7.6 fL (7.4-10.4); Nucleated Red Blood Cells % 0.1; Platelet Count 129 10^3/uL (150-450); Red Blood Count 3.77 10^6 /uL (4.18-5.48); Red Cell Distribution Width 15 % (10-15); White Blood Count 7.4 10^3/uL (3.5-10.8)
[2019-06-03 06:41] LABS: Calcium 8.8 mg/dL (8.6-10.3); Potassium 4.5 mmol/L (3.5-5.0)
[2019-06-03 06:46] LABS: BUN/Creatinine Ratio 23.8 (8-20); EGFR African American 111.4 (>60); EGFR Non-African American 92.1 (>60)
[2019-06-03] MEDS: Tiotropium CAP.INH* CAP.INH/18 MCG (USE ORDER SET !) INH SCH (08:27)
[2019-06-03] MEDS: Fluticasone/Vilanterol MDI(NF) 200/25 MDI INH SCH (08:29)
[2019-06-03] MEDS: Montelukast Sodium TAB* 10 MG PO SCH (09:09)
[2019-06-03] MEDS: Atorvastatin* 20 MG TAB PO SCH (09:10)
[2019-06-03] MEDS: Cholecalciferol TAB* 1000 UNITS PO SCH (09:10)
[2019-06-03] MEDS: predniSONE TAB* 5 MG PO SCH (09:10)
[2019-06-03] MEDS: Ascorbic Acid TAB* 500 MG PO SCH (09:11)
[2019-06-03] MEDS: Multivitamins/Minerals TAB PO SCH (09:11)
[2019-06-03] MEDS: Aspirin 81 mg CHEW TAB* 81 MG TAB.CHEW PO SCH (09:11)
[2019-06-03] MEDS: Cefepime 2 GM in Dextrose(*) 2 GM/50 ML BAG IV SCH ×2 (11:20→22:22)
--- NOTE | 2019-06-03 11:50 | PN ---
Subjective Date of Service: 06/03/19 Interval History: Pt has h/o chronic wound around L 5th MTP joint. He states that this began in Nov this year when he had a podiatry consult for callous, which was shaved. He was followed by wound clinic at [facility] for a wound that developed after this. He notes that wound resolved and he has been d/c from clinic for several months. Wound has recurred now. He notes that it slowly worsened and became swollen. He notes increased pain for the last approximately 4 day. Patient continues to have pain and swelling in the L foot. He denies CP, SOB, abd pain, n/v/d, pain elsewhere. Objective Active Medications: Acetaminophen (Tylenol Tab*) 650 mg PO Q4H PRN Albuterol (Ventolin Hfa Inhaler*) 2 puff INH Q4H PRN Ascorbic Acid (Vitamin C Tab*) 500 mg PO DAILY SARINA Aspirin (Aspirin 81 Mg Chew Tab*) 81 mg PO DAILY SARINA Atorvastatin Calcium (Lipitor*) 20 mg PO DAILY SARINA Cholecalciferol (Vitamin D Tab*) 5,000 units PO DAILY SARINA Device (Tiotropium Inhaler Device*) 1 each INH DAILY SARINA Fluticasone/Vilanterol (Breo Ellipta Mdi 200/25(Nf)) 1 puff INH DAILY SARINA Cefepime HCl (Maxipime 2 Gm In Dextrose Duplex (*)) 2 gm in 50 mls @ 100 mls/ hr IV Q12H SARINA Losartan Potassium (Cozaar Tab*) 100 mg PO BEDTIME SARINA Magnesium Oxide (Magox 400 Tab*) 800 mg PO BEDTIME SARINA Montelukast Sodium (Singulair Tab*) 10 mg PO DAILY SARINA Multivitamins/Minerals (Theragran/Minerals Tab*) 1 tab PO DAILY SARINA Prednisone (Deltasone Tab*) 5 mg PO DAILY SARINA Tamsulosin HCl (Flomax Cap*) 0.4 mg PO BEDTIME SARINA Tiotropium [place] (Spiriva Cap.Inh*) 1 cap INH DAILY SARINA Warfarin Sodium (Coumadin Tab(*)) 3 mg PO SuTuWeThFrSa@1700 [facility]; Protocol Warfarin Sodium (Coumadin Tab(*)) 4 mg PO Mo@1700 [facility] Vital Signs: Temp Pulse Resp BP Pulse Ox 96.9 F 58 17 125/60 98 06/03/19 08:10 06/03/19 08:10 06/03/19 08:10 06/03/19 08:10 06/03/19 08:10 Oxygen Devices in Use Now: None Appearance: Pt is sitting up in bed. He appears to be in no acute distress, appears comfortable. He is pleasant, cooperative. Eyes: No Scleral Icterus Ears/Nose/Mouth/Throat: Clear Oropharnyx, Mucous Membranes Moist Neck: NL Appearance and Movements; NL JVP, Trachea Midline Respiratory: Symmetrical Chest Expansion and Respiratory Effort, Clear to Auscultation Cardiovascular: NL Sounds; No Murmurs; No JVD, RRR Abdominal: NL Sounds; No Tenderness; No Distention, No Hepatosplenomegaly Extremities: No Clubbing, Cyanosis, - - B/l LE with chronic skin changes, brawny. L pedal edema; increased edema laterally at L 5th MTP joint with TTP and warm. Callous at 5th MTP is black in color with opening with no discharge, erythema. There is another blackened wound lateral to callous that is unopened and without discharge. Neurological: Alert and Oriented x 3, NL Sensation Result Diagrams: 06/04/19 06:11 06/04/19 06:11 Microbiology and Other Data: Microbiology 06/02/19 18:35 Skin and Soft Tissue MRSA/MSSA (PCR - Final Foot Left Mrsa Negative S.aureus Negative Gram Stain - Final Assess/Plan/Problems-Billing Assessment: 84yom PMHx DM, chronic L foot wound and callous, AF, HFpEF, s/p TAVR, HTN, HLD who presented with L lateral foot pain, erythema, edema associated with wound concerning for osteomyelitis. - Patient Problems (1) Cellulitis Comment: -Pt has h/o wound at this site which has healed; he was d/c from wound clinic several months ago. H/o DM, currently off metformin with HA1c 6.5. -Now with LLE cellulitis at 5th MTP area with 2 wounds in surrounding area. TTP , edematous, with mild erythema -L foot x-ray shows ST swelling, osteopenia, cannot exclude osteo -MRI ordered -Ortho consulted, notified -Uric acid negative -Wound cultures sent, pending; negative for MRSA -Continue Cefepime (2) Sepsis Comment: -Criteria for sepsis met at admission with leukocytosis, fever, infection -Now afebrile with no leukocytosis -Continue Cefepime (3) Diabetes mellitus Comment: -Previously on metformin -HA1C 6.5, fasting glu this a.m. 111 -Will add FS AC and lispro ss -Will likely need metformin at d/c (4) Heart failure Comment: -I/O, daily weights -Continue losartan -Lasix, metolazone on hold for now (5) HTN (hypertension) Comment: -Controlled -Continue losartan (6) Atrial fibrillation Comment: -Continue coumadin (7) COPD (chronic obstructive pulmonary disease) Comment: -Continue home inhalers (8) HLD (hyperlipidemia) Comment: -Continue statin (9) BPH (benign prostatic hyperplasia) Comment: -Continue tamsulosin (10) GELACIO (obstructive sleep apnea) Comment: -2L O2 NC at night (11) DVT prophylaxis Comment: -Continue Warfarin (12) Full code status Status and Disposition: Inpatient. Discharge when stable. Ortho consult in a.m. after MRI LLE.
[2019-06-03] MEDS: Spiriva Inhaler DEVICE* 1 EACH DEVICE INH SCH (13:10)
[2019-06-03 13:14] LABS: Uric Acid 5.3 mg/dL (4.4-7.6)
[2019-06-03] MEDS: Warfarin TAB(*) 3 MG PO SCH (16:49)
[2019-06-03] MEDS ORDERED: Dextrose 50% Syringe 50 ML* 25 GM/50 ML SYRINGE IV PUSH PRN (19:53)
[2019-06-03] MEDS: Losartan TAB* 25 MG PO SCH (20:15)
[2019-06-03] MEDS: Tamsulosin CAP* 0.4 MG PO SCH (20:16)
[2019-06-03] MEDS: Acetaminophen TAB* 325 MG PO PRN (20:16)
[2019-06-03] MEDS: Magnesium Oxide TAB* 400 MG PO SCH (20:16)
[2019-06-04 06:31] LABS: ABS Basophils 0.1 10^3/ul (0-0.2); ABS Eosinophils 0.2 10^3/ul (0-0.6); ABS Lymphocytes 0.9 10^3/ul (1.0-4.8); ABS Monocytes 0.8 10^3/ul (0-0.8); ABS Neutrophils 5.4 10^3/ul (1.5-7.7); Eosinophil % 2.7 %; Hematocrit 34 % (42-52); Hemoglobin 12.1 g/dL (14.0-18.0); Mean Corpuscular HGB Conc 35 g/dL (31-36); Mean Corpuscular Hemoglobin 32 pg (27-31); Mean Corpuscular Volume 90 fL (80-94); Mean Platelet Volume 7.5 fL (7.4-10.4); Platelet Count 128 10^3/uL (150-450); Red Blood Count 3.79 10^6 /uL (4.18-5.48); Red Cell Distribution Width 15 % (10-15); White Blood Count 7.3 10^3/uL (3.5-10.8)
[2019-06-04 06:44] LABS: BUN/Creatinine Ratio 27.4 (8-20); EGFR African American 123.9 (>60); EGFR Non-African American 102.4 (>60); Potassium 4.3 mmol/L (3.5-5.0)
[2019-06-04] MEDS: Tiotropium CAP.INH* CAP.INH/18 MCG (USE ORDER SET !) INH SCH (07:26)
[2019-06-04] MEDS: Fluticasone/Vilanterol MDI(NF) 200/25 MDI INH SCH (07:29)
[2019-06-04] MEDS: Insulin LISPRO* 1 UNITS UNIT SUBCUT SCH ×3 (08:34→16:50)
[2019-06-04] MEDS: Multivitamins/Minerals TAB PO SCH (09:07)
[2019-06-04] MEDS: Atorvastatin* 20 MG TAB PO SCH (09:07)
[2019-06-04] MEDS: Montelukast Sodium TAB* 10 MG PO SCH (09:07)
[2019-06-04] MEDS: Ascorbic Acid TAB* 500 MG PO SCH (09:07)
[2019-06-04] MEDS: Cholecalciferol TAB* 1000 UNITS PO SCH (09:07)
[2019-06-04] MEDS: predniSONE TAB* 5 MG PO SCH (09:07)
[2019-06-04] MEDS: Aspirin 81 mg CHEW TAB* 81 MG TAB.CHEW PO SCH (09:12)
[2019-06-04] MEDS: Spiriva Inhaler DEVICE* 1 EACH DEVICE INH SCH (09:12)
--- NOTE | 2019-06-04 11:54 | CONS ---
CONSULTATION REPORT: DATE OF CONSULT: 06/04/19 HISTORY OF PRESENT ILLNESS: Gordon is a very pleasant and relatively young- appearing 84-year-old male who has had chronic left forefoot callus and then subsequent ulceration around the fifth metatarsal head. He was treated for a long time with periodic callus trimming, pads in the shoes and then had a trip to the wound clinic in spring with multiple medications and topical treatments. He did not have hyperbaric treatment. He is here for the last couple of days with increasing redness in his left forefoot and now is draining from this previous area around his fifth metatarsal. PAST MEDICAL HISTORY: He has had heart issues. He has heart valve, some peripheral vascular disease and COPD, but he does not in his knowledge have a true diagnosis of diabetes. MEDICATIONS: His medications are outlined in the chart. SOCIAL HISTORY: He is a former smoker. He enjoys gardening. He is here with his son who is very pleasant and helpful as well. PHYSICAL EXAMINATION: His physical exam shows him to be a healthy appearing male, who is conversant and well dosed on his medical history. His extremity shows him to have a good warm foot. Intact sensation to light touch. He has a strong dorsal pedis pulse. He has a blistering and ulceration sort of 2 to 3 cm in width on the plantar and lateral aspect of his left fifth metatarsal head area. There is no pain with range of motion of the joint. There is some cloudy serous drainage and nonpurulent smelling. DIAGNOSTIC STUDIES/LAB DATA: Laboratory evaluation shows that he has normal glucose and some increased BUN and creatinine and modest white blood cell count. His plain radiograph showed some erosions and muffin appearance of his fifth metatarsal head. He is possibly scheduled for an MRI. It was delayed over the weekend. PLAN: The patient is n.p.o. and I have spoken with him and his son about the need for debridement and fifth metatarsal head removal. I think this is a coredro to getting his infection under control and also this callus problem going forward. This will be scheduled later in the day today. [id number]/[facility] #: [id number] NIXON
[2019-06-04] MEDS ORDERED: Lidocaine 2% PF * 5 ML VIAL ONE (11:57)
[2019-06-04] MEDS ORDERED: KETAMINE HCL* 50 MG/ML 10 ML VIAL ONE (11:57)
[2019-06-04] MEDS ORDERED: fentaNYL* 50 MCG/ML 2 ML VIAL (100 MCG VIAL) ONE ×2 (11:57→14:10)
[2019-06-04] MEDS ORDERED: Midazolam* 1 MG/ML 5 ML VIAL (5 MG) ONE (11:57)
[2019-06-04] MEDS ORDERED: Propofol* 10 MG/ML 20 ML BTL ONE (11:57)
[2019-06-04] MEDS ORDERED: Ondansetron INJ* 2 MG/ML VIAL ONE (11:57)
[2019-06-04] MEDS ORDERED: Spiriva Inhaler DEVICE* 1 EACH DEVICE INH ONE (12:00)
[2019-06-04] MEDS ORDERED: Bupivacaine 0.5%* 50 ML VIAL ONE (13:30)
[2019-06-04] MEDS ORDERED: Naloxone* 0.4 MG/ML 1 ML VIAL IV PRN (13:37)
[2019-06-04] MEDS ORDERED: Lidocaine 2% PF* 10 ML AMP ONE (13:50)
[2019-06-04] MEDS ORDERED: Midazolam* 1 MG/ML 2 ML VIAL (2 MG) ONE (14:10)
--- NOTE | 2019-06-04 15:14 | PN ---
Subjective Date of Service: 06/04/19 Interval History: Patient notes LLE wound "opened up" at callous on bottom of foot yesterday, and he has felt relief since this occurred. He continues to have difficulty with ambulation, but states the area is less tender. Continues to have edema. Denies other complaints, including CP, dyspnea, abd pain, n/v/d. Objective Active Medications: Acetaminophen (Tylenol Tab*) 650 mg PO Q4H PRN Albuterol (Ventolin Hfa Inhaler*) 2 puff INH Q4H PRN Ascorbic Acid (Vitamin C Tab*) 500 mg PO DAILY SARINA Aspirin (Aspirin 81 Mg Chew Tab*) 81 mg PO DAILY SARINA Atorvastatin Calcium (Lipitor*) 20 mg PO DAILY SARINA Cholecalciferol (Vitamin D Tab*) 5,000 units PO DAILY SARINA Dextrose (D50w Syringe 50 Ml*) 12.5 gm IV PUSH .FOR FS < 60 - SS PRN Fluticasone/Vilanterol (Breo Ellipta Mdi 200/25(Nf)) 1 puff INH DAILY SARINA Cefepime HCl (Maxipime 2 Gm In Dextrose Duplex (*)) 2 gm in 50 mls @ 100 mls/ hr IV Q12H SARINA Insulin Human Lispro (Humalog*) 0 units SUBCUT AC SARINA; Protocol Losartan Potassium (Cozaar Tab*) 100 mg PO BEDTIME SARINA Magnesium Oxide (Magox 400 Tab*) 800 mg PO BEDTIME SARINA Montelukast Sodium (Singulair Tab*) 10 mg PO DAILY SARINA Multivitamins/Minerals (Theragran/Minerals Tab*) 1 tab PO DAILY SARINA Naloxone HCl (Narcan*) 0.08 mg IV Q2M PRN Prednisone (Deltasone Tab*) 5 mg PO DAILY SARINA Tamsulosin HCl (Flomax Cap*) 0.4 mg PO BEDTIME SARINA Tiotropium [place] (Spiriva Cap.Inh*) 1 cap INH DAILY SARINA Warfarin Sodium (Coumadin Tab(*)) 3 mg PO SuTuWeThFrSa@1700 SARINA; Protocol Warfarin Sodium (Coumadin Tab(*)) 4 mg PO Mo@1700 SARINA Vital Signs: Temp Pulse Resp BP Pulse Ox 98.4 F 64 20 130/68 95 06/04/19 20:52 06/04/19 20:52 06/04/19 20:52 06/04/19 20:52 06/04/19 20:52 Oxygen Devices in Use Now: Nasal Cannula Appearance: Pt is sitting up in bed with LE elevated. He is pleasant, social, older white male. He is in no acute distress. Eyes: No Scleral Icterus, PERRLA Ears/Nose/Mouth/Throat: NL Teeth, Lips, Gums, Clear Oropharnyx, Mucous Membranes Moist Neck: NL Appearance and Movements; NL JVP, Trachea Midline Respiratory: Symmetrical Chest Expansion and Respiratory Effort, Clear to Auscultation Cardiovascular: NL Sounds; No Murmurs; No JVD, RRR, No Edema Abdominal: NL Sounds; No Tenderness; No Distention, No Hepatosplenomegaly Extremities: - - B/l LE with brawny skin. LLE edematous. Black, opened callous at bottom of foot with no exudate currently; black closed wound lateral to callous. No erythema. Foot, wounds warm to palpation. Pedal pulses palpable. Neurological: Alert and Oriented x 3 Result Diagrams: 06/04/19 06:11 06/04/19 06:11 Microbiology and Other Data: Microbiology 06/02/19 18:35 Skin and Soft Tissue MRSA/MSSA (PCR - Final Foot Left Mrsa Negative S.aureus Negative Gram Stain - Final Assess/Plan/Problems-Billing Assessment: 84yom PMHx DM, chronic L foot wound and callous, AF, HFpEF, s/p TAVR, HTN, HLD who presented with L lateral foot pain, erythema, edema associated with wound concerning for osteomyelitis. - Patient Problems (1) Cellulitis Comment: -Pt has h/o wound at this site which has healed; he was d/c from wound clinic several months ago. H/o DM, currently off metformin with HA1c 6.5. -Now with LLE cellulitis at 5th MTP area with 2 wounds in surrounding area. TTP , edematous, with mild erythema -L foot x-ray shows ST swelling, osteopenia, cannot exclude osteo -Ortho consulted, notified; plan for debridement, 5th metatarsal head removal today. -Uric acid negative -Wound cultures sent, normal catracho, negative for MRSA -BC NGTD -Continue Cefepime until c/s from debridement result (2) Sepsis Comment: -Criteria for sepsis met at admission with leukocytosis, fever, infection -Now afebrile without leukocytosis -Continue Cefepime (3) Diabetes mellitus Comment: -Previously on metformin -HA1C 6.5, slight elevation in fasting BG -Will add FS AC and lispro ss -Will likely need metformin at d/c- discussed with patient, and he would like to forego starting metformin until discussion with primary care provider (4) Heart failure Comment: -I/O, daily weights -Wt trending down -Continue losartan -Lasix, metolazone on hold for now- will continue to monitor need for restart (5) HTN (hypertension) Comment: -Controlled -Continue losartan (6) Atrial fibrillation Comment: -Continue coumadin (7) COPD (chronic obstructive pulmonary disease) Comment: -Continue home inhalers (8) HLD (hyperlipidemia) Comment: -Continue statin (9) BPH (benign prostatic hyperplasia) Comment: -Continue tamsulosin (10) GELACIO (obstructive sleep apnea) Comment: -2L O2 NC at night (11) DVT prophylaxis Comment: -Continue Warfarin (12) Full code status Status and Disposition: Inpatient. Discharge when stable. Ortho consult in a.m. after MRI LLE.
[2019-06-04] MEDS: Cefepime 2 GM in Dextrose(*) 2 GM/50 ML BAG IV SCH ×2 (15:58→23:16)
[2019-06-04] MEDS ORDERED: Morphine INJ* 2 MG/ML 1 ML SYRINGE (TWO MG - NEW SYRINGE VERSION) IV PRN (16:18)
[2019-06-04] MEDS ORDERED: Warfarin TAB(*) 4 MG PO SCH (17:00)
[2019-06-04] MEDS: Acetaminophen TAB* 325 MG PO PRN (17:42)
[2019-06-04] MEDS: oxyCODONE TAB* 5 MG TAB PO PRN ×2 (19:24→23:15)
[2019-06-04] MEDS: Magnesium Oxide TAB* 400 MG PO SCH (19:27)
[2019-06-04] MEDS: Tamsulosin CAP* 0.4 MG PO SCH (19:28)
[2019-06-04] MEDS: Losartan TAB* 25 MG PO SCH (19:29)
--- NOTE | 2019-06-04 22:28 | OP ---
DATE OF OPERATION: 06/04/19 - ROOM #411 DATE OF : 35 ATTENDING SURGEON: Roosevelt Mccall MD CREDIT REFERENCE CLERK: Scott Breen PA-C PRE-OP DIAGNOSIS: Osteomyelitis with chronic ulcer, left fifth metatarsophalangeal joint. POST-OP DIAGNOSIS: Osteomyelitis with chronic ulcer, left fifth metatarsophalangeal joint. OPERATIVE PROCEDURE: Excision left fifth metatarsal head, irrigation and debridement, excision of ulcer area and closure. DESCRIPTION OF PROCEDURE: The patient was taken to the operating room where a longitudinal incision was made dorsolaterally along the edge of the blister area , carried down over the MTP joint. There was some slightly cloudy serous fluid around the fifth metatarsal head. Cultures were sent at this level. Also, some cultures sent from the superficial blister area which actually appeared to be grossly purulent. The fifth metatarsal head was divided 4 to 5 cm proximally in an oblique fashion and sent to Pathology. We from inside out debrided some of the soft tissue and then excised this large lateral blister incorporating into the excised skin edges. We then closed with interrupted 2-0 Monocryl and 2-0 Prolene for the skin in interrupted sutures. Compression dressing was applied. [id number]/[facility] #: [id number] [facility]X HOSPITALAmanda
[2019-06-05] MEDS: oxyCODONE TAB* 5 MG TAB PO PRN ×6 (00:14→22:50)
[2019-06-05] MEDS: Fluticasone/Vilanterol MDI(NF) 200/25 MDI INH SCH (07:52)
[2019-06-05] MEDS: Tiotropium CAP.INH* CAP.INH/18 MCG (USE ORDER SET !) INH SCH (07:53)
[2019-06-05] MEDS: Atorvastatin* 20 MG TAB PO SCH (08:44)
[2019-06-05] MEDS: Ascorbic Acid TAB* 500 MG PO SCH (08:44)
[2019-06-05] MEDS: Cholecalciferol TAB* 1000 UNITS PO SCH (08:44)
[2019-06-05] MEDS: Multivitamins/Minerals TAB PO SCH (08:45)
[2019-06-05] MEDS: Montelukast Sodium TAB* 10 MG PO SCH (08:45)
[2019-06-05] MEDS: Aspirin 81 mg CHEW TAB* 81 MG TAB.CHEW PO SCH (08:45)
[2019-06-05] MEDS: predniSONE TAB* 5 MG PO SCH (08:46)
[2019-06-05] MEDS: Insulin LISPRO* 1 UNITS UNIT SUBCUT SCH ×3 (08:51→16:26)
[2019-06-05] MEDS: Cefepime 2 GM in Dextrose(*) 2 GM/50 ML BAG IV SCH ×2 (10:52→22:50)
--- NOTE | 2019-06-05 11:14 | PN ---
Subjective Date of Service: 06/05/19 Interval History: Pt continues to have difficulty walking, stating that the bandages are bulky and he is only allow WB on L heel. He states that his pain is relatively well controlled with pain medications; current pain is 2/10. He has no other complaints today. Objective Active Medications: Acetaminophen (Tylenol Tab*) 650 mg PO Q4H PRN Albuterol (Ventolin Hfa Inhaler*) 2 puff INH Q4H PRN Ascorbic Acid (Vitamin C Tab*) 500 mg PO DAILY SARINA Aspirin (Aspirin 81 Mg Chew Tab*) 81 mg PO DAILY SARINA Atorvastatin Calcium (Lipitor*) 20 mg PO DAILY SARINA Cholecalciferol (Vitamin D Tab*) 5,000 units PO DAILY SARINA Dextrose (D50w Syringe 50 Ml*) 12.5 gm IV PUSH .FOR FS < 60 - SS PRN Fluticasone/Vilanterol (Breo Ellipta Mdi 200/25(Nf)) 1 puff INH DAILY SARINA Cefepime HCl (Maxipime 2 Gm In Dextrose Duplex (*)) 2 gm in 50 mls @ 100 mls/ hr IV Q12H SARINA Insulin Human Lispro (Humalog*) 0 units SUBCUT AC SARINA; Protocol Losartan Potassium (Cozaar Tab*) 100 mg PO BEDTIME SARINA Magnesium Oxide (Magox 400 Tab*) 800 mg PO BEDTIME SARINA Montelukast Sodium (Singulair Tab*) 10 mg PO DAILY SARINA Morphine Sulfate (Morphine Inj (Syringe))*) 2 mg IV Q3H PRN Multivitamins/Minerals (Theragran/Minerals Tab*) 1 tab PO DAILY SARINA Oxycodone HCl (Roxycodone Tab*) 5 mg PO Q4H PRN Oxycodone HCl (Roxycodone Tab*) 10 mg PO Q4H PRN Prednisone (Deltasone Tab*) 5 mg PO DAILY SARINA Tamsulosin HCl (Flomax Cap*) 0.4 mg PO BEDTIME SARINA Tiotropium [place] (Spiriva Cap.Inh*) 1 cap INH DAILY SARINA Warfarin Sodium (Coumadin Tab(*)) 3 mg PO SuTuWeThFrSa@1700 SARINA; Protocol Warfarin Sodium (Coumadin Tab(*)) 4 mg PO Mo@1700 [facility] Vital Signs: Temp Pulse Resp BP Pulse Ox 98.4 F 62 16 117/56 95 06/05/19 15:15 06/05/19 15:15 06/05/19 18:08 06/05/19 15:15 06/05/19 15:15 Oxygen Devices in Use Now: Nasal Cannula Appearance: Pt is sitting in wheelchair eating breakfast. He is pleasant, cooperative. He is in no acute distress. Eyes: No Scleral Icterus, PERRLA Ears/Nose/Mouth/Throat: NL Teeth, Lips, Gums, Clear Oropharnyx, Mucous Membranes Moist Neck: NL Appearance and Movements; NL JVP, Trachea Midline Respiratory: Symmetrical Chest Expansion and Respiratory Effort, Clear to Auscultation Cardiovascular: NL Sounds; No Murmurs; No JVD, RRR Abdominal: NL Sounds; No Tenderness; No Distention, No Hepatosplenomegaly Extremities: No Clubbing, Cyanosis, - - LLE with CDI dsg in place. Neurological: Alert and Oriented x 3 Result Diagrams: 06/04/19 06:11 06/04/19 06:11 Microbiology and Other Data: Microbiology 06/02/19 18:35 Skin and Soft Tissue MRSA/MSSA (PCR - Final Foot Left Mrsa Negative S.aureus Negative Gram Stain - Final Assess/Plan/Problems-Billing Assessment: 84yom PMHx DM, chronic L foot wound and callous, AF, HFpEF, s/p TAVR, HTN, HLD who presented with L lateral foot pain, erythema, edema associated with wound concerning for osteomyelitis. - Patient Problems (1) Osteomyelitis Comment: -POD1 L 5th metatarsal osteotomy, debridement -Pt has h/o wound at this site which has healed; he was d/c from wound clinic several months ago. H/o DM, currently off metformin with HA1c 6.5. -Now with LLE cellulitis at 5th MTP area with 2 wounds in surrounding area. TTP , edematous, with mild erythema -L foot x-ray shows ST swelling, osteopenia, cannot exclude osteo -Ortho consulting -Wound cultures sent, normal catracho, negative for MRSA -BC NGTD -Continue Cefepime (day 3) until c/s from debridement resulted -ID consulted, notified (2) Sepsis Comment: -Criteria for sepsis met at admission with leukocytosis, fever, infection source -Now afebrile without leukocytosis -Continue Cefepime (3) Diabetes mellitus Comment: -Previously on metformin, unsure why he stopped medication -HA1C 6.5, slight elevation in fasting BG -Will add FS AC and lispro ss -Will likely need metformin at d/c- discussed with patient, and he would like to forego starting metformin until discussion with primary care provider (4) Heart failure Comment: -I/O, daily weights -Wt trending down -Continue losartan -Lasix, metolazone on hold for now- will continue to monitor need for restart (5) HTN (hypertension) Comment: -Controlled -Continue losartan (6) Atrial fibrillation Comment: -Continue coumadin (7) COPD (chronic obstructive pulmonary disease) Comment: -Continue home inhalers (8) HLD (hyperlipidemia) Comment: -Continue statin (9) BPH (benign prostatic hyperplasia) Comment: -Continue tamsulosin (10) GELACIO (obstructive sleep apnea) Comment: -2L O2 NC at night (11) DVT prophylaxis Comment: -Continue Warfarin (12) Full code status Status and Disposition: Inpatient. Discharge when stable. Ortho consult in a.m. after MRI LLE.
--- NOTE | 2019-06-05 12:01 | PN ---
Progress Note - Progress Note Date of Service: 06/05/19 Note: Orthopedics: Patient resting comfortably in bed s/p Left 5th metatarsal osteotomy and debridement. His pain is well managed. He is heel WB. Wound cultures taken yesterday during surgery are negative for abnormal catracho. He denies fever; his dressing is C/D/I. Capillary refill is brisk. Ortho will continue to follow.
[2019-06-05] MEDS: Warfarin TAB(*) 3 MG PO SCH (18:04)
[2019-06-05] MEDS: Tamsulosin CAP* 0.4 MG PO SCH (21:12)
[2019-06-05] MEDS: Magnesium Oxide TAB* 400 MG PO SCH (21:13)
[2019-06-05] MEDS: Losartan TAB* 25 MG PO SCH (21:13)
[2019-06-06 06:00] LABS: Hematocrit 33 % (42-52); Hemoglobin 11.5 g/dL (14.0-18.0); Mean Corpuscular HGB Conc 35 g/dL (31-36); Mean Corpuscular Hemoglobin 32 pg (27-31); Mean Corpuscular Volume 90 fL (80-94); Mean Platelet Volume 7.5 fL (7.4-10.4); Platelet Count 147 10^3/uL (150-450); Red Blood Count 3.63 10^6 /uL (4.18-5.48); Red Cell Distribution Width 15 % (10-15); White Blood Count 8.8 10^3/uL (3.5-10.8)
[2019-06-06 06:07] LABS: ABS Eosinophils 0.2 10^3/ul (0-0.6); ABS Monocytes 1.6 10^3/ul (0-0.8); ABS Neutrophils 6.1 10^3/ul (1.5-7.7); Lymphocyte % 10.9 %
[2019-06-06 06:11] LABS: BUN/Creatinine Ratio 31.7 (8-20); Calcium 9.4 mg/dL (8.6-10.3); EGFR African American 82.3 (>60); Potassium 4.7 mmol/L (3.5-5.0)
[2019-06-06] MEDS: Insulin LISPRO* 1 UNITS UNIT SUBCUT SCH ×3 (06:49→16:22)
[2019-06-06] MEDS: Fluticasone/Vilanterol MDI(NF) 200/25 MDI INH SCH (07:41)
[2019-06-06] MEDS: Tiotropium CAP.INH* CAP.INH/18 MCG (USE ORDER SET !) INH SCH (08:06)
[2019-06-06] MEDS: Multivitamins/Minerals TAB PO SCH (08:21)
[2019-06-06] MEDS: Atorvastatin* 20 MG TAB PO SCH (08:21)
[2019-06-06] MEDS: Aspirin 81 mg CHEW TAB* 81 MG TAB.CHEW PO SCH (08:21)
[2019-06-06] MEDS: Ascorbic Acid TAB* 500 MG PO SCH (08:21)
[2019-06-06] MEDS: Montelukast Sodium TAB* 10 MG PO SCH (08:21)
[2019-06-06] MEDS: predniSONE TAB* 5 MG PO SCH (08:21)
[2019-06-06] MEDS: Cholecalciferol TAB* 1000 UNITS PO SCH (08:21)
[2019-06-06] MEDS ORDERED: Metolazone TAB* 5 MG PO PRN (09:13)
[2019-06-06] MEDS: Furosemide TAB* 20 MG PO SCH ×2 (09:27→21:29)
[2019-06-06] MEDS: Cefepime 2 GM in Dextrose(*) 2 GM/50 ML BAG IV SCH (10:35)
[2019-06-06] MEDS: oxyCODONE TAB* 5 MG TAB PO PRN ×3 (11:23→22:52)
--- NOTE | 2019-06-06 14:16 | PN ---
Subjective Date of Service: 06/06/19 Interval History: Pt states he is feeling ok today. He reports improvement with ambulations, but states that it is still difficult. He has intermittent foot pain. He denies CP , SOB, abd pain, n/v/d/c. We discussed senior care use of antibiotics. He may have to stay in the hospital swing status for continuation of TID antibiotics. He would prefer d/c to home, but is agreeable. Objective Active Medications: Acetaminophen (Tylenol Tab*) 650 mg PO Q4H PRN Albuterol (Ventolin Hfa Inhaler*) 2 puff INH Q4H PRN Ascorbic Acid (Vitamin C Tab*) 500 mg PO DAILY SARINA Aspirin (Aspirin 81 Mg Chew Tab*) 81 mg PO DAILY SARINA Atorvastatin Calcium (Lipitor*) 20 mg PO DAILY SARINA Cholecalciferol (Vitamin D Tab*) 5,000 units PO DAILY SARINA Dextrose (D50w Syringe 50 Ml*) 12.5 gm IV PUSH .FOR FS < 60 - SS PRN Fluticasone/Vilanterol (Breo Ellipta Mdi 200/25(Nf)) 1 puff INH DAILY SARINA Furosemide (Lasix Tab*) 20 mg PO BID SARINA Cefazolin Sodium 2 gm/ Sodium (Chloride) 100 mls @ 200 mls/hr IVPB Q8H SARINA Insulin Human Lispro (Humalog*) 0 units SUBCUT AC SARINA; Protocol Losartan Potassium (Cozaar Tab*) 100 mg PO BEDTIME SARINA Magnesium Oxide (Magox 400 Tab*) 800 mg PO BEDTIME SARINA Metolazone (Zaroxolyn Tab*) 5 mg PO DAILY PRN Montelukast Sodium (Singulair Tab*) 10 mg PO DAILY SARINA Morphine Sulfate (Morphine Inj (Syringe))*) 2 mg IV Q3H PRN Multivitamins/Minerals (Theragran/Minerals Tab*) 1 tab PO DAILY SARINA Oxycodone HCl (Roxycodone Tab*) 5 mg PO Q4H PRN Oxycodone HCl (Roxycodone Tab*) 10 mg PO Q4H PRN Prednisone (Deltasone Tab*) 5 mg PO DAILY SARINA Tamsulosin HCl (Flomax Cap*) 0.4 mg PO BEDTIME SARINA Tiotropium [place] (Spiriva Cap.Inh*) 1 cap INH DAILY SARINA Warfarin Sodium (Coumadin Tab(*)) 3 mg PO SuTuWeThFrSa@1700 SARINA; Protocol Warfarin Sodium (Coumadin Tab(*)) 4 mg PO Mo@1700 SARINA Vital Signs: Temp Pulse Resp BP Pulse Ox 98.1 F 60 16 135/64 96 06/06/19 15:15 06/06/19 15:15 06/06/19 17:17 06/06/19 15:15 06/06/19 15:15 Oxygen Devices in Use Now: None Appearance: Pt is istting up in bed, HOB elevated. He appears comfortable, in no acute distress. Eyes: No Scleral Icterus, PERRLA Ears/Nose/Mouth/Throat: NL Teeth, Lips, Gums, Clear Oropharnyx, Mucous Membranes Moist Neck: NL Appearance and Movements; NL JVP, Trachea Midline Respiratory: Symmetrical Chest Expansion and Respiratory Effort, Clear to Auscultation Cardiovascular: NL Sounds; No Murmurs; No JVD, RRR Abdominal: NL Sounds; No Tenderness; No Distention, No Hepatosplenomegaly Extremities: No Clubbing, Cyanosis, - - Brawny skin to b/l LE. Trace edema to LLE. CDI dresing to LLE. Neurological: Alert and Oriented x 3 Result Diagrams: 06/06/19 05:36 06/06/19 05:36 Microbiology and Other Data: Microbiology 06/02/19 18:35 Skin and Soft Tissue MRSA/MSSA (PCR - Final Foot Left Mrsa Negative S.aureus Negative Gram Stain - Final Assess/Plan/Problems-Billing Assessment: 84yom PMHx DM, chronic L foot wound and callous, AF, HFpEF, s/p TAVR, HTN, HLD who presented with L lateral foot pain, erythema, edema associated with wound concerning for osteomyelitis. - Patient Problems (1) Osteomyelitis Comment: -POD2 L 5th metatarsal osteotomy, debridement for osteo -Pt has h/o wound at this site which has healed; he was d/c from wound clinic several months ago. H/o DM, currently off metformin with HA1c 6.5. Here for return of wound -L foot x-ray shows ST swelling, osteopenia, cannot exclude osteo -Ortho consulting- recommend debridement (done 06/04) -Wound cultures sent, positive for Staph, Enterococcos; ID consulting- thank you for recommendations - NGTD -Cefepime x3 days; switched to Ancef TID 06/06 until c/s from debridement resulted (2) Sepsis Comment: -Criteria for sepsis met at admission with leukocytosis, fever, infection source -Now afebrile without leukocytosis -Cefepime started; switched to Ancef 06/06 (3) Diabetes mellitus Comment: -Previously on metformin, unsure why he stopped medication -HA1C 6.5, slight elevation in fasting BG -Will add FS AC and lispro ss -Will likely need metformin at d/c- discussed with patient, and he would like to forego starting metformin until discussion with primary care provider (4) Heart failure Comment: -I/O, daily weights -Wt starting to trend up -Continue losartan -Lasix, metolazone restarted (5) HTN (hypertension) Comment: -Controlled -Continue losartan (6) Atrial fibrillation Comment: -Continue coumadin (7) COPD (chronic obstructive pulmonary disease) Comment: -Continue home inhalers (8) HLD (hyperlipidemia) Comment: -Continue statin (9) BPH (benign prostatic hyperplasia) Comment: -Continue tamsulosin (10) GELACIO (obstructive sleep apnea) Comment: -2L O2 NC at night (11) DVT prophylaxis Comment: -Continue Warfarin (12) Full code status Status and Disposition: Inpatient. Discharge when stable. Ortho consult in a.m. after MRI MARGARETE.
--- NOTE | 2019-06-06 15:37 | CONS ---
CONSULTATION REPORT: DATE OF CONSULT: 06/06/19 PRIMARY CARE PROVIDER: Abel Galicia DO. PROVIDER REQUESTING CONSULTATION: KO Flores. ATTENDING PROVIDER: Dr. Akins * (DICTATED BY ANÍBAL MEZA NP ) IMPRESSION: 1. Left foot infection, status post excision of left fifth metatarsal head with irrigation and debridement, excision of ulcer area and closure. Suspect this represents chronic osteomyelitis. Initial wound cultures with Enterococcus faecalis. In the past, the patient has grown Staphylococcus aureus in this wound. 2. Diabetes mellitus type 2. 3. Chronic lymphocytic leukemia. 4. Obstructive sleep apnea, uses 2 L of oxygen at bedtime. RECOMMENDATIONS: Recommend discontinuing cefepime. Start Ancef 2gm IV every 8 hours. He will need to have 4 weeks of IV antibiotics, followed by a course of oral antibiotics. He will need to have a PICC line placed. While on IV ABX, he should have weekly labs: CBC, CMP, and CRP. HISTORY OF PRESENT ILLNESS: Mr. Redmond is an 84-year-old male with past medical history significant for atrial fibrillation, heart failure, aortic stenosis, COPD, CLL, diabetes, obstructive sleep apnea, hypertension, and hyperlipidemia who presented to the hospital with complaints of pain, redness, and swelling associated with a wound on his left lateral foot. The patient reports that his symptoms initially presented around 05/31/19 and he presented to the emergency room for evaluation of his symptoms. While in the emergency room, he was noted to have a low-grade fever of 100.8 with associated leukocytosis with a white blood cell count of 12,000. He had an x-ray of his left foot showing soft tissue swelling of the fifth metatarsal joint with osteopenia of the head of the fifth metatarsal proximal phalanx of the fifth digit with concern for possible underlying osteomyelitis. The patient was referred to the hospitalist service for admission. While in the hospital, the patient's initial leukocytosis resolved. CRP at the time of admission was 2.56. He was seen in consultation by Dr. Roosevelt Mccall with orthopedic surgery, who felt that the patient needed debridement and the fifth metatarsal head removed. On 06/04/19, he underwent excision of the left fifth metatarsal head with irrigation and debridement, excision of the ulcer area and closure. During his hospitalization, he has been on cefepime. He has been afebrile with no leukocytosis. Denies fevers, chills, joint pain, muscle pain, nausea, vomiting, diarrhea, abdominal pain, rash, recent travel. He does report skin itching since his hospital admission, he states this occurs every time he is in the hospital. He does report some left foot discomfort. PAST MEDICAL HISTORY: 1. Atrial fibrillation. 2. Heart failure with preserved EF. 3. Aortic stenosis. 4. COPD. 5. CLL. 6. Diabetes mellitus type 2. 7. BPH. 8. Obstructive sleep apnea with 2 L of oxygen via nasal cannula at bedtime. 9. Hypertension. 10. Hyperlipidemia. PAST SURGICAL HISTORY: 1. Status post TAVR. 2. Status post appendectomy. 3. Status post rotator cuff repair. 4. Status post deviated septum repair. HOME MEDICATIONS: 1. Losartan 100 mg by mouth daily. 2. Tamsulosin 0.4 mg by mouth daily. 3. Prednisone 5 mg by mouth daily. 4. Warfarin 3, 4 mg by mouth daily. 5. Spiriva Respimat 2.5 mcg inhalation daily. 6. Multivitamin 1 tablet by mouth daily. 7. Singulair 10 mg by mouth daily. 8. Metolazone 5 mg by mouth daily as needed for weight greater than 225 pounds. 9. Magnesium oxide 800 mg by mouth daily. 10. Glucosamine 1500 mg by mouth daily. 11. Furosemide 20 mg by mouth twice daily. 12. Ellipta MDI 1 puff inhalation daily. 13. Vitamin D3 at 5000 units by mouth daily. 14. Atorvastatin 20 mg by mouth daily. 15. Aspirin 81 mg by mouth daily. 16. Ascorbic acid 500 mg by mouth daily. 17. Albuterol HFA inhaler 2 puffs inhalation every 4 hours as needed for shortness of breath or wheeze. 28. Acetaminophen 500 to 1000 mg by mouth as needed for pain. Hospital Medications: 1. Acetaminophen 650 mg by mouth every 4 hours as needed for fever or pain. 2. Albuterol HFA inhaler 2 puffs inhalation every 4 hours as needed for shortness of breath or wheeze. 3. Vitamin C 500 mg by mouth daily. 4. Aspirin 81 mg by mouth daily. 5. Atorvastatin 20 mg by mouth daily. 6. Cefepime 2 g IV every 12 hours. 7. Vitamin D 5000 units by mouth daily. 8. Dextrose 12.5 g IV push for glucose less than 60 as needed. 9. Breo Ellipta MDI 1 puff inhalation daily. 10. Furosemide 20 mg by mouth twice daily. 11. Humalog insulin sliding scale subcutaneous with meals. 12. Losartan 100 mg by mouth daily. 13. Magnesium oxide 800 mg by mouth at bedtime. 14. Metolazone 5 mg by mouth daily as needed for weight greater than 225 pounds. 15. Singulair 10 mg by mouth daily. 16. Morphine sulfate 2 mg IV every 3 hours as needed for unrelieved pain. 17. Multivitamin 1 tablet by mouth daily. 18. Oxycodone 5 to 10 mg by mouth every 4 hours as needed for pain. 19. Prednisone 5 mg by mouth daily. 20. Tamsulosin 0.4 mg by mouth daily at bedtime. 21. Spiriva 1 capsule inhalation daily. 22. Warfarin 3 mg by mouth on Tuesday, Tuesday, Tuesday, , Tuesday, Tuesday and 4 mg by mouth on Tuesday. ALLERGIES: Nuts caused throat swelling; PENICILLIN causes swelling, and RAMIPRIL causes coughing. FAMILY HISTORY: Denies any family history of recurrent resistant infections. Mother with a history of coronary artery disease. Denies family history of diabetes. Father with a history of pancreatic cancer. SOCIAL HISTORY: He reports occasional alcohol use. Denies recreational drug use. He is a former smoker, quit 45 years ago. Prior to that, he had a 2- to 3- year history of light smoking. REVIEW OF SYSTEMS: I performed a 10-point review of systems. All the pertinent positives and negatives are mentioned in the history of present illness. The remaining review of systems are negative. PHYSICAL EXAM: Vital Signs: Temperature 98.8, heart rate 65, respiratory rate 16, O2 sat 99% on room air, blood pressure 133/55. General Appearance: No acute distress. Sitting up on the side of the bed. Head: Normocephalic, atraumatic. Pupils, no conjunctival hemorrhage. Extraocular movements are intact. Moist mucous membranes. Neck: Supple. No lymphadenopathy. Neurological: Alert and oriented x4. Cranial nerves II through XII are grossly intact. Cardiovascular: Regular rate and rhythm. S1, S2 present. No murmurs, rubs, gallops. Respiratory: No accessory muscle use. Lungs are clear to auscultation bilaterally. Abdomen: Bowel sounds present. Abdomen is soft, nontender, and nondistended. Extremities: There is 1+ left lower extremity edema. Musculoskeletal: No clubbing or cyanosis noted. The patient exhibits good strength in all extremities. Psychological: Calm and cooperative. Skin: The patient was noted to have chronic bilateral extremity skin discoloration. Surgical dressing to his left foot. DIAGNOSTIC STUDIES/LABORATORY DATA: Sodium 131, potassium 4.7, chloride 98, CO2 of 27, BUN 33, creatinine 1.04, glucose 123. White blood cell count 8.8, hemoglobin 11.3, hematocrit 33, platelet count 147. Blood cultures with no growth to date. Left foot culture with 1+ neutrophils, 1+ epithelial cells, 3+ Gram-positive cocci. Preliminary anaerobic culture with Enterococcus faecalis. Please see impression and recommendations outlined above as discussed with KO Smith. Thank you for asking us to see Mr. Redmond in consultation. The case has been reviewed with my attending, Dr. Shaq Akins, who agrees with plan of care. Reviewed buy CASE DE LUNA 06/08/19 1222 [id number]/[facility] #: [id number] MTDD
--- NOTE | 2019-06-06 17:07 | PN ---
Progress Note - Progress Note Date of Service: 06/06/19 SOAP: Subjective: []Pt seen at bedside. He is comfortable without complaints today Objective: []Gen: NAD LLE: Dressing CDI, no erythema proximally Calves supple and nontender Assessment: []s/p Left 5th metatarsal osteotomy and debridement. Plan: []Heel WB abx per ID warfarin DVT prophy Vital Signs Temp 98.1 F 06/06/19 15:15 Pulse 60 06/06/19 15:15 Resp 18 06/06/19 15:15 BP 135/64 06/06/19 15:15 Pulse Ox 96 06/06/19 15:15 Intake & Output 06/05/19 06/06/19 06/06/19 18:59 06:59 18:59 Intake Total 1480 0 1560 Output Total 1310 425 760 Balance 170 -425 800 Weight 221 lb 9.6 oz Intake: Oral 1480 0 1560 Output: Urine 1310 425 760 Other: Date of Last Bowel unknown [id number] Movement # Bowel Movements 0 0 0 # Voids 2 Laboratory Last Values WBC 8.8 10^3/uL (3.5-10.8) 06/06/19 05:36 RBC 3.63 10^6 /uL (4.18-5.48) L 06/06/19 05:36 Hgb 11.5 g/dL (14.0-18.0) L 06/06/19 05:36 Hct 33 % (42-52) L 06/06/19 05:36 MCV 90 fL (80-94) 06/06/19 05:36 MCH 32 pg (27-31) H 06/06/19 05:36 MCHC 35 g/dL (31-36) 06/06/19 05:36 RDW 15 % (10-15) 06/06/19 05:36 Plt Count 147 10^3/uL (150-450) L 06/06/19 05:36 MPV 7.5 fL (7.4-10.4) 06/06/19 05:36 Neut % (Auto) 69.1 % 06/06/19 05:36 Lymph % (Auto) 10.9 % 06/06/19 05:36 [place] % (Auto) 17.6 % 06/06/19 05:36 Eos % (Auto) 2.0 % 06/06/19 05:36 Baso % (Auto) 0.4 % 06/06/19 05:36 Absolute Neuts (auto) 6.1 10^3/ul (1.5-7.7) 06/06/19 05:36 Absolute Lymphs (auto) 1.0 10^3/ul (1.0-4.8) 06/06/19 05:36 Absolute Monos (auto) 1.6 10^3/ul (0-0.8) H 06/06/19 05:36 Absolute Eos (auto) 0.2 10^3/ul (0-0.6) 06/06/19 05:36 Absolute Basos (auto) 0.0 10^3/ul (0-0.2) 06/06/19 05:36 Absolute Nucleated RBC 0.0 10^3/ul 06/06/19 05:36 Nucleated RBC % 0.0 06/06/19 05:36 ESR 16 mm/Hr (0-19) 06/02/19 15:13 INR (Anticoag Therapy) 2.62 (0.82-1.09) H 06/02/19 15:13 APTT 47.3 seconds (26.0-38.0) H 06/02/19 15:13 Sodium 131 mmol/L (135-145) L 06/06/19 05:36 Potassium 4.7 mmol/L (3.5-5.0) 06/06/19 05:36 Chloride 98 mmol/L (101-111) L 06/06/19 05:36 Carbon Dioxide 27 mmol/L (22-32) 06/06/19 05:36 Anion Gap 6 mmol/L (2-11) 06/06/19 05:36 BUN 33 mg/dL (6-24) H 06/06/19 05:36 Creatinine 1.04 mg/dL (0.67-1.17) 06/06/19 05:36 Est GFR ( Amer) 82.3 (>60) 06/06/19 05:36 Est GFR (Non-Af Amer) 68.0 (>60) 06/06/19 05:36 BUN/Creatinine Ratio 31.7 (8-20) H 06/06/19 05:36 Glucose 123 mg/dL (70-100) H 06/06/19 05:36 POC Glucose (mg/dL) 128 mg/dL (70-100) H 06/04/19 13:35 Hemoglobin A1c 6.5 % (4.0-5.6) H 06/03/19 06:04 Lactic Acid 0.8 mmol/L (0.5-2.0) 06/02/19 18:45 Uric Acid 5.3 mg/dL (4.4-7.6) 06/03/19 06:04 Calcium 9.4 mg/dL (8.6-10.3) 06/06/19 05:36 Total Bilirubin 1.10 mg/dL (0.2-1.0) H 06/02/19 15:13 AST 28 U/L (13-39) 06/02/19 15:13 ALT 29 U/L (7-52) 06/02/19 15:13 Alkaline Phosphatase 61 U/L (34-104) 06/02/19 15:13 C-Reactive Protein 2.56 mg/L (<8.01) 06/02/19 15:13 Total Protein 7.2 g/dL (6.4-8.9) 06/02/19 15:13 Albumin 4.3 g/dL (3.2-5.2) 06/02/19 15:13 Globulin 2.9 g/dL (2-4) 06/02/19 15:13 Albumin/Globulin Ratio 1.5 (1-3) 06/02/19 15:13 Urine Color Yellow 06/02/19 15:30 Urine Appearance Clear 06/02/19 15:30 Urine pH 5.0 (5-9) 06/02/19 15:30 Ur Specific [place] 1.016 (1.010-1.030) 06/02/19 15:30 Urine Protein Negative (Negative) 06/02/19 15:30 Urine Ketones Negative (Negative) 06/02/19 15:30 Urine Blood Negative (Negative) 06/02/19 15:30 Urine Nitrate Negative (Negative) 06/02/19 15:30 Urine Bilirubin Negative (Negative) 06/02/19 15:30 Urine Urobilinogen Negative (Negative) 06/02/19 15:30 Ur Leukocyte Esterase Negative (Negative) 06/02/19 15:30 Urine Glucose Negative (Negative) 06/02/19 15:30
[2019-06-06] MEDS: Warfarin TAB(*) 3 MG PO SCH (17:17)
[2019-06-06] MEDS: Magnesium Oxide TAB* 400 MG PO SCH (21:28)
[2019-06-06] MEDS: Tamsulosin CAP* 0.4 MG PO SCH (21:28)
[2019-06-06] MEDS: Losartan TAB* 25 MG PO SCH (21:29)
[2019-06-06] MEDS: ceFAZolin VIAL(*) 2 GM in NS 0.9% 100 ML* 100 ML IVPB SCH (21:39)
[2019-06-07] MEDS: ceFAZolin VIAL(*) 2 GM in NS 0.9% 100 ML* 100 ML IVPB SCH ×3 (05:20→22:58)
[2019-06-07 06:09] LABS: EGFR African American 86.1 (>60); EGFR Non-African American 71.2 (>60); Potassium 4.6 mmol/L (3.5-5.0)
[2019-06-07] MEDS: Insulin LISPRO* 1 UNITS UNIT SUBCUT SCH ×3 (07:40→15:10)
[2019-06-07] MEDS: Fluticasone/Vilanterol MDI(NF) 200/25 MDI INH SCH (08:27)
[2019-06-07] MEDS: Tiotropium CAP.INH* CAP.INH/18 MCG (USE ORDER SET !) INH SCH (08:28)
--- NOTE | 2019-06-07 08:56 | PN ---
Progress Note - Progress Note Date of Service: 06/07/19 SOAP: Subjective: [] Pt seen at bedside. He feels well without feeling of fever or chills, T max 100 in the past 24 hours. Denies CP, SOB, dizziness, nausea. Objective: []General: Appears well, NAD LLE: Dressing CDI, able to wiggle exposed toes, cap refill less than two seconds distally, sensation decreased distally though reported as baseline. Calves supple and nontender Assessment: []s/p Left 5th metatarsal osteotomy and debridement. Plan: []Heel WB abx per ID: ancef 2g q 8 hr x 4 weeks then po abx. Needs PICC placed then can DC. Ortho to do wound check prior to DC warfarin DVT prophy Vital Signs Temp 98.5 F 06/07/19 02:31 Pulse 78 06/07/19 08:29 Resp 18 06/07/19 14:19 BP 124/54 06/07/19 02:31 Pulse Ox 98 06/07/19 08:29 Intake & Output 06/06/19 06/07/19 06/07/19 18:59 06:59 18:59 Intake Total 2040 610 1700 Output Total 760 450 Balance 1351 408 2011 Weight 227 lb 1.6 oz Intake: IVPB 30 NS (0.9%) 30 Oral 2040 580 1700 Output: Urine 760 450 Other: Date of Last Bowel [id number] Movement # Bowel Movements 0 0 Laboratory Last Values WBC 8.8 10^3/uL (3.5-10.8) 06/06/19 05:36 RBC 3.63 10^6 /uL (4.18-5.48) L 06/06/19 05:36 Hgb 11.5 g/dL (14.0-18.0) L 06/06/19 05:36 Hct 33 % (42-52) L 06/06/19 05:36 MCV 90 fL (80-94) 06/06/19 05:36 MCH 32 pg (27-31) H 06/06/19 05:36 MCHC 35 g/dL (31-36) 06/06/19 05:36 RDW 15 % (10-15) 06/06/19 05:36 Plt Count 147 10^3/uL (150-450) L 06/06/19 05:36 MPV 7.5 fL (7.4-10.4) 06/06/19 05:36 Neut % (Auto) 69.1 % 06/06/19 05:36 Lymph % (Auto) 10.9 % 06/06/19 05:36 [place] % (Auto) 17.6 % 06/06/19 05:36 Eos % (Auto) 2.0 % 06/06/19 05:36 Baso % (Auto) 0.4 % 06/06/19 05:36 Absolute Neuts (auto) 6.1 10^3/ul (1.5-7.7) 06/06/19 05:36 Absolute Lymphs (auto) 1.0 10^3/ul (1.0-4.8) 06/06/19 05:36 Absolute Monos (auto) 1.6 10^3/ul (0-0.8) H 06/06/19 05:36 Absolute Eos (auto) 0.2 10^3/ul (0-0.6) 06/06/19 05:36 Absolute Basos (auto) 0.0 10^3/ul (0-0.2) 06/06/19 05:36 Absolute Nucleated RBC 0.0 10^3/ul 06/06/19 05:36 Nucleated RBC % 0.0 06/06/19 05:36 ESR 16 mm/Hr (0-19) 06/02/19 15:13 INR (Anticoag Therapy) 2.62 (0.82-1.09) H 06/02/19 15:13 APTT 47.3 seconds (26.0-38.0) H 06/02/19 15:13 Sodium 129 mmol/L (135-145) L 06/07/19 05:19 Potassium 4.6 mmol/L (3.5-5.0) 06/07/19 05:19 Chloride 98 mmol/L (101-111) L 06/07/19 05:19 Carbon Dioxide 25 mmol/L (22-32) 06/07/19 05:19 Anion Gap 6 mmol/L (2-11) 06/07/19 05:19 BUN 36 mg/dL (6-24) H 06/07/19 05:19 Creatinine 1.00 mg/dL (0.67-1.17) 06/07/19 05:19 Est GFR ( Amer) 86.1 (>60) 06/07/19 05:19 Est GFR (Non-Af Amer) 71.2 (>60) 06/07/19 05:19 BUN/Creatinine Ratio 36.0 (8-20) H 06/07/19 05:19 Glucose 106 mg/dL (70-100) H 06/07/19 05:19 POC Glucose (mg/dL) 128 mg/dL (70-100) H 06/04/19 13:35 Hemoglobin A1c 6.5 % (4.0-5.6) H 06/03/19 06:04 Lactic Acid 0.8 mmol/L (0.5-2.0) 06/02/19 18:45 Uric Acid 5.3 mg/dL (4.4-7.6) 06/03/19 06:04 Calcium 9.0 mg/dL (8.6-10.3) 06/07/19 05:19 Total Bilirubin 1.10 mg/dL (0.2-1.0) H 06/02/19 15:13 AST 28 U/L (13-39) 06/02/19 15:13 ALT 29 U/L (7-52) 06/02/19 15:13 Alkaline Phosphatase 61 U/L (34-104) 06/02/19 15:13 C-Reactive Protein 2.56 mg/L (<8.01) 06/02/19 15:13 Total Protein 7.2 g/dL (6.4-8.9) 06/02/19 15:13 Albumin 4.3 g/dL (3.2-5.2) 06/02/19 15:13 Globulin 2.9 g/dL (2-4) 06/02/19 15:13 Albumin/Globulin Ratio 1.5 (1-3) 06/02/19 15:13 Urine Color Yellow 06/02/19 15:30 Urine Appearance Clear 06/02/19 15:30 Urine pH 5.0 (5-9) 06/02/19 15:30 Ur Specific [place] 1.016 (1.010-1.030) 06/02/19 15:30 Urine Protein Negative (Negative) 06/02/19 15:30 Urine Ketones Negative (Negative) 06/02/19 15:30 Urine Blood Negative (Negative) 06/02/19 15:30 Urine Nitrate Negative (Negative) 06/02/19 15:30 Urine Bilirubin Negative (Negative) 06/02/19 15:30 Urine Urobilinogen Negative (Negative) 06/02/19 15:30 Ur Leukocyte Esterase Negative (Negative) 06/02/19 15:30 Urine Glucose Negative (Negative) 06/02/19 15:30
[2019-06-07] MEDS: Cholecalciferol TAB* 1000 UNITS PO SCH (09:58)
[2019-06-07] MEDS: Multivitamins/Minerals TAB PO SCH (09:58)
[2019-06-07] MEDS: Ascorbic Acid TAB* 500 MG PO SCH (09:58)
[2019-06-07] MEDS: Furosemide TAB* 20 MG PO SCH (10:00)
[2019-06-07] MEDS: predniSONE TAB* 5 MG PO SCH (10:00)
[2019-06-07] MEDS: Atorvastatin* 20 MG TAB PO SCH (10:00)
[2019-06-07] MEDS: Aspirin 81 mg CHEW TAB* 81 MG TAB.CHEW PO SCH (10:00)
[2019-06-07] MEDS: Montelukast Sodium TAB* 10 MG PO SCH (10:01)
[2019-06-07] MEDS: oxyCODONE TAB* 5 MG TAB PO PRN ×2 (14:19→22:54)
[2019-06-07 16:16] LABS: INR 2.5 (0.82-1.09)
--- NOTE | 2019-06-07 18:14 | PN ---
Subjective Date of Service: 06/07/19 Interval History: Patient resting in bed. Reports pain in left foot is well controlled. Reports concern due to mild swelling noted to LLE. Reports he can usually see his epstein bone, but cannot currently. Denies calf pain. Denies cp, sob, palpitations, fever, chills, nausea, vomiting. Objective Active Medications: Acetaminophen (Tylenol Tab*) 650 mg PO Q4H PRN PRN Reason: FEVER/PAIN Last Admin: 06/04/19 17:42 Dose: 650 mg Albuterol (Ventolin Hfa Inhaler*) 2 puff INH Q4H PRN PRN Reason: SHORTNESS OF BREATH Ascorbic Acid (Vitamin C Tab*) 500 mg PO DAILY [facility] Last Admin: 06/07/19 09:58 Dose: 500 mg Aspirin (Aspirin 81 Mg Chew Tab*) 81 mg PO DAILY [facility] Last Admin: 06/07/19 10:00 Dose: 81 mg Atorvastatin Calcium (Lipitor*) 20 mg PO DAILY [facility] Last Admin: 06/07/19 10:00 Dose: 20 mg Cholecalciferol (Vitamin D Tab*) 5,000 units PO DAILY [facility] Last Admin: 06/07/19 09:58 Dose: 5,000 units Dextrose (D50w Syringe 50 Ml*) 12.5 gm IV PUSH .FOR FS < 60 - SS PRN PRN Reason: FS < 60 Fluticasone/Vilanterol (Breo Ellipta Mdi 200/25(Nf)) 1 puff INH DAILY [facility] Last Admin: 06/07/19 08:27 Dose: Not Given Furosemide (Lasix Tab*) 40 mg PO DAILY [facility] Cefazolin Sodium 2 gm/ Sodium (Chloride) 100 mls @ 200 mls/hr IVPB Q8H [facility] Last Admin: 06/07/19 14:19 Dose: 200 mls/hr Insulin Human Lispro (Humalog*) 0 units SUBCUT AC [facility]; Protocol Last Admin: 06/07/19 15:10 Dose: Not Given Losartan Potassium (Cozaar Tab*) 100 mg PO BEDTIME [facility] Last Admin: 06/06/19 21:29 Dose: 100 mg Magnesium Oxide (Magox 400 Tab*) 800 mg PO BEDTIME [facility] Last Admin: 06/06/19 21:28 Dose: 800 mg Metolazone (Zaroxolyn Tab*) 5 mg PO DAILY PRN PRN Reason: SHORTNESS OF BREATH Stop: 06/09/19 09:12 Montelukast Sodium (Singulair Tab*) 10 mg PO DAILY [facility] Last Admin: 06/07/19 10:01 Dose: 10 mg Morphine Sulfate (Morphine Inj (Syringe))*) 2 mg IV Q3H PRN PRN Reason: PAIN - UNRELIEVED Multivitamins/Minerals (Theragran/Minerals Tab*) 1 tab PO DAILY [facility] Last Admin: 06/07/19 09:58 Dose: 1 tab Oxycodone HCl (Roxycodone Tab*) 5 mg PO Q4H PRN PRN Reason: PAIN - MODERATE Last Admin: 06/05/19 22:50 Dose: 5 mg Oxycodone HCl (Roxycodone Tab*) 10 mg PO Q4H PRN PRN Reason: PAIN - SEVERE Last Admin: 06/07/19 14:19 Dose: 10 mg Pharmacy Profile Note (Coumadin Per Pharmacy*) 1 note FOLLOW UP .PER PHARMACY PROTOC [facility]; Protocol Prednisone (Deltasone Tab*) 5 mg PO DAILY [facility] Last Admin: 06/07/19 10:00 Dose: 5 mg Tamsulosin HCl (Flomax Cap*) 0.4 mg PO BEDTIME [facility] Last Admin: 06/06/19 21:28 Dose: 0.4 mg Tiotropium [place] (Spiriva Cap.Inh*) 1 cap INH DAILY [facility] Last Admin: 06/07/19 08:28 Dose: 1 cap Vital Signs - 8 hr 06/07/19 06/07/19 06/07/19 11:15 14:19 15:15 Temperature 98.1 F 98.3 F Pulse Rate 57 61 Respiratory 17 18 12 Rate Blood Pressure 124/57 125/58 (mmHg) O2 Sat by Pulse 95 98 Oximetry 06/07/19 06/07/19 16:00 16:33 Temperature Pulse Rate Respiratory 16 Rate Blood Pressure (mmHg) O2 Sat by Pulse 98 Oximetry Oxygen Devices in Use Now: None Appearance: Comfortable, NAD Eyes: No Scleral Icterus Ears/Nose/Mouth/Throat: Clear Oropharnyx, Mucous Membranes Moist Neck: NL Appearance and Movements; NL JVP Respiratory: Symmetrical Chest Expansion and Respiratory Effort, Clear to Auscultation Cardiovascular: NL Sounds; No Murmurs; No JVD, RRR, No Edema Abdominal: NL Sounds; No Tenderness; No Distention Lymphatic: No Cervical Adenopathy Extremities: - - Mild nonpitting edema to LLE Skin: No Rash or Ulcers, - - Dressing to Left Foot CDI Neurological: Alert and Oriented x 3 Nutrition: Taking PO's Result Diagrams: 06/06/19 05:36 06/07/19 05:19 Additional Lab and Data: Laboratory Results - last 24 hr 06/07/19 06/07/19 05:19 15:57 INR (Anticoag Therapy) 2.50 H Sodium 129 L Potassium 4.6 Chloride 98 L Carbon Dioxide 25 Anion Gap 6 BUN 36 H Creatinine 1.00 Est GFR ( Amer) 86.1 Est GFR (Non-Af Amer) 71.2 BUN/Creatinine Ratio 36.0 H Glucose 106 H Calcium 9.0 Microbiology and Other Data: Microbiology 06/02/19 15:13 Aerobic Blood Culture - Final Blood Venous No Growth Day 5 Anaerobic Blood Culture - Final No Growth Day 5 06/02/19 15:13 Aerobic Blood Culture - Final Blood Venous No Growth Day 5 Anaerobic Blood Culture - Final No Growth Day 5 06/04/19 14:18 Gram Stain - Final Foot Left Wound Culture - Preliminary Staphylococcus Lugdenensis Finegoldia Magna 06/04/19 14:24 Anaerobic Culture - Preliminary Wound Finegoldia Magna 06/04/19 14:24 Gram Stain - Final Foot Left Wound Culture - Preliminary Staphylococcus Lugdenensis Enterococcus Faecalis Finegoldia Magna 06/04/19 14:18 Anaerobic Culture - Preliminary Wound Finegoldia Magna 06/02/19 18:35 Skin and Soft Tissue MRSA/MSSA (PCR - Final Foot Left Mrsa Negative S.aureus Negative Gram Stain - Final Wound Culture - Final Normal Audrey Assess/Plan/Problems-Billing Assessment: 84yom PMHx DM, chronic L foot wound and callous, AF, HFpEF, s/p TAVR, HTN, HLD who presented with L lateral foot pain, erythema, edema associated with wound concerning for osteomyelitis. - Patient Problems (1) Hyponatremia Current Visit: No Status: Acute Code(s): E87.1 - HYPO-OSMOLALITY AND HYPONATREMIA SNOMED Code(s): 29668308 Comment: - Resume home dosing of Lasix - Suspected secondary to hypervolemia. - Placed on fluid restriction - Recheck lytes in AM (2) Osteomyelitis Comment: -POD3 L 5th metatarsal osteotomy, debridement for osteo -Pt has h/o wound at this site which has healed; he was d/c from wound clinic several months ago. H/o DM, currently off metformin with HA1c 6.5. Here for return of wound -L foot x-ray shows ST swelling, osteopenia, cannot exclude osteo -Ortho consulting- recommend debridement (done 06/04) -Wound cultures sent, positive for Staph, Enterococcos; ID consulting- thank you for recommendations -BC NGTD -Cefepime x3 days; switched to Ancef TID 06/06. Will need 4 weeks IV Ancef than switched to PO. Picc to be placed tomorrow (3) Sepsis Comment: -Criteria for sepsis met at admission with leukocytosis, fever, infection source -Now afebrile without leukocytosis -Cefepime started; switched to Ancef 06/06 (4) Diabetes mellitus Comment: -Previously on metformin, unsure why he stopped medication -HA1C 6.5, slight elevation in fasting BG -Will add FS AC and lispro ss -Will likely need metformin at d/c- discussed with patient, and he would like to forego starting metformin until discussion with primary care provider (5) Heart failure Comment: - Weight increased. I suspected this is due to IVF on admission and the fact that patient is only taking Lasix 20 mg when he actually takes 40 mg. Reports he has been refusing the 20 mg at night as he usually takes 2 tabs of 20 mg in the morning. Therefore changed to reflect home dosing. -I/O, daily weights -Continue losartan - Cont Lasix and Metolazone (6) Atrial fibrillation Comment: -Continue coumadin (7) BPH (benign prostatic hyperplasia) Comment: -Continue tamsulosin (8) COPD (chronic obstructive pulmonary disease) Comment: -Continue home inhalers (9) HLD (hyperlipidemia) Comment: -Continue statin (10) HTN (hypertension) Comment: -Controlled -Continue losartan (11) GELACIO (obstructive sleep apnea) Current Visit: No Status: Chronic Code(s): G47.33 - OBSTRUCTIVE SLEEP APNEA (ADULT) (PEDIATRIC) SNOMED Code(s): 65227236 Comment: -2L O2 NC at night (12) DVT prophylaxis Comment: -Continue Warfarin Status and Disposition: Inpatient. Discharge when stable. Ortho consult in a.m. after MRI LLE. Attending: Adenike Jc
[2019-06-07] MEDS: Tamsulosin CAP* 0.4 MG PO SCH (22:55)
[2019-06-07] MEDS: Losartan TAB* 25 MG PO SCH (22:55)
[2019-06-07] MEDS: Magnesium Oxide TAB* 400 MG PO SCH (22:56)
[2019-06-08] MEDS: ceFAZolin VIAL(*) 2 GM in NS 0.9% 100 ML* 100 ML IVPB SCH ×3 (05:58→21:09)
[2019-06-08 06:06] LABS: Hematocrit 29 % (42-52); Hemoglobin 10.3 g/dL (14.0-18.0); Mean Platelet Volume 7.5 fL (7.4-10.4); Platelet Count 146 10^3/uL (150-450)
[2019-06-08 06:16] LABS: INR 2.32 (0.82-1.09)
[2019-06-08 06:22] LABS: BUN/Creatinine Ratio 36.5 (8-20); Calcium 8.6 mg/dL (8.6-10.3); EGFR African American 103.9 (>60); EGFR Non-African American 85.9 (>60); Magnesium 2.1 mg/dL (1.9-2.7); Potassium 4.4 mmol/L (3.5-5.0)
[2019-06-08] MEDS: Insulin LISPRO* 1 UNITS UNIT SUBCUT SCH ×3 (07:27→16:46)
[2019-06-08] MEDS: Ascorbic Acid TAB* 500 MG PO SCH (08:58)
[2019-06-08] MEDS: Furosemide TAB* 40 MG PO SCH (08:58)
[2019-06-08] MEDS: Aspirin 81 mg CHEW TAB* 81 MG TAB.CHEW PO SCH (08:58)
[2019-06-08] MEDS: Cholecalciferol TAB* 1000 UNITS PO SCH (08:58)
[2019-06-08] MEDS: Atorvastatin* 20 MG TAB PO SCH (08:58)
[2019-06-08] MEDS: Multivitamins/Minerals TAB PO SCH (08:58)
[2019-06-08] MEDS: Montelukast Sodium TAB* 10 MG PO SCH (08:59)
[2019-06-08] MEDS: predniSONE TAB* 5 MG PO SCH (08:59)
[2019-06-08] MEDS: Fluticasone/Vilanterol MDI(NF) 200/25 MDI INH SCH (11:14)
[2019-06-08] MEDS: Tiotropium CAP.INH* CAP.INH/18 MCG (USE ORDER SET !) INH SCH (11:20)
--- NOTE | 2019-06-08 14:18 | PN ---
Progress Note - Progress Note Date of Service: 06/08/19 SOAP: Subjective: []Patient seen at bedside, doing well, foot pain minimal. Denies nausea, vomiting, SOB,CP. Hopes to be discharged today. Objective: [] Vital Signs Temp 98.2 F 06/08/19 11:15 Pulse 72 06/08/19 11:21 Resp 15 06/08/19 11:21 BP 153/60 06/08/19 11:15 Pulse Ox 94 06/08/19 11:21 Intake & Output 06/07/19 06/08/19 06/08/19 18:59 06:59 18:59 Intake Total 2160 220 360 Output Total 625 Balance 2160 -405 360 Weight 225 lb 12.8 oz Intake: IV Fluids 220 ABX - CEFAZOLIN 220 IVPB 100 NS (0.9%) 100 Oral 2060 0 360 Output: Urine 625 Other: # Bowel Movements 0 Laboratory Results - last 24 hr 06/07/19 06/08/19 06/08/19 15:57 05:47 05:47 Hgb 10.3 L Hct 29 L Plt Count 146 L MPV 7.5 INR (Anticoag Therapy) 2.50 H 2.32 H Sodium Potassium Chloride Carbon Dioxide Anion Gap BUN Creatinine Est GFR ( Amer) Est GFR (Non-Af Amer) BUN/Creatinine Ratio Glucose Calcium Magnesium 06/08/19 05:47 Hgb Hct Plt Count MPV INR (Anticoag Therapy) Sodium 131 L Potassium 4.4 Chloride 99 L Carbon Dioxide 27 Anion Gap 5 BUN 31 H Creatinine 0.85 Est GFR ( Amer) 103.9 Est GFR (Non-Af Amer) 85.9 BUN/Creatinine Ratio 36.5 H Glucose 110 H Calcium 8.6 Magnesium 2.1 Microbiology 06/04/19 14:24 Anaerobic Culture - Final Wound Finegoldia Magna 06/04/19 14:24 Gram Stain - Final Foot Left Wound Culture - Final Staphylococcus Lugdenensis Enterococcus Faecalis Finegoldia Magna Normal Audrey 06/04/19 14:18 Anaerobic Culture - Final Wound Finegoldia Magna 06/04/19 14:18 Gram Stain - Final Foot Left Wound Culture - Final Staphylococcus Lugdenensis Finegoldia Magna 06/02/19 15:13 Aerobic Blood Culture - Final Blood Venous No Growth Day 5 Anaerobic Blood Culture - Final No Growth Day 5 06/02/19 15:13 Aerobic Blood Culture - Final Blood Venous No Growth Day 5 Anaerobic Blood Culture - Final No Growth Day 5 06/02/19 18:35 Skin and Soft Tissue MRSA/MSSA (PCR - Final Foot Left Mrsa Negative S.aureus Negative Gram Stain - Final Wound Culture - Final Normal Audrey Left foot dressing removed, moderate old dried bloody drainage on Kerlex. lateral left foot incision with mild maceration mid portion of incision, clotted blood along incision line, no foul odor or active purulent drainage mild ecchymosis dorsal foot calf NT and soft +DF left foot telfa, 4x4s, Kerlex, ABD and CRISTHIAN reapplied to left foot Assessment: []s/p left 5th metatarsal debridement/ osteotomy POD #4 Plan: []Heel WB LLE abx per ID: ancef 2g q 8 hr x 4 weeks then po abx. PIC placed today, dressing changes every other day or as needed warfarin DVT prophy Follow up with Dr. Mccall in 7-10 days
--- NOTE | 2019-06-08 16:15 | PN ---
Subjective Date of Service: 06/08/19 Interval History: Patient reports he feels well today. Pain to left lower extremity is minimal. Reports swelling to LLE noted yesterday has improved mildly today. Denies fever , chills, calf pain, cp, sob, n/v/d. Objective Active Medications: Acetaminophen (Tylenol Tab*) 650 mg PO Q4H PRN PRN Reason: FEVER/PAIN Last Admin: 06/04/19 17:42 Dose: 650 mg Albuterol (Ventolin Hfa Inhaler*) 2 puff INH Q4H PRN PRN Reason: SHORTNESS OF BREATH Ascorbic Acid (Vitamin C Tab*) 500 mg PO DAILY [facility] Last Admin: 06/08/19 08:58 Dose: 500 mg Aspirin (Aspirin 81 Mg Chew Tab*) 81 mg PO DAILY [facility] Last Admin: 06/08/19 08:58 Dose: 81 mg Atorvastatin Calcium (Lipitor*) 20 mg PO DAILY [facility] Last Admin: 06/08/19 08:58 Dose: 20 mg Cholecalciferol (Vitamin D Tab*) 5,000 units PO DAILY [facility] Last Admin: 06/08/19 08:58 Dose: 5,000 units Dextrose (D50w Syringe 50 Ml*) 12.5 gm IV PUSH .FOR FS < 60 - SS PRN PRN Reason: FS < 60 Fluticasone/Vilanterol (Breo Ellipta Mdi 200/25(Nf)) 1 puff INH DAILY [facility] Last Admin: 06/08/19 11:14 Dose: Not Given Furosemide (Lasix Tab*) 40 mg PO DAILY [facility] Last Admin: 06/08/19 08:58 Dose: 40 mg Heparin Sodium (Porcine) (Heparin Flush Picc/Ml/Cvc(*)) 1 - 3 ml FLUSH 0600, 1800 [facility]; Protocol Cefazolin Sodium 2 gm/ Sodium (Chloride) 100 mls @ 200 mls/hr IVPB Q8H [facility] Last Admin: 06/08/19 15:01 Dose: 200 mls/hr Insulin Human Lispro (Humalog*) 0 units SUBCUT AC [facility]; Protocol Last Admin: 06/08/19 10:57 Dose: Not Given Losartan Potassium (Cozaar Tab*) 100 mg PO BEDTIME [facility] Last Admin: 06/07/19 22:55 Dose: 100 mg Magnesium Oxide (Magox 400 Tab*) 800 mg PO BEDTIME [facility] Last Admin: 06/07/19 22:56 Dose: 800 mg Metolazone (Zaroxolyn Tab*) 5 mg PO DAILY PRN PRN Reason: SHORTNESS OF BREATH Stop: 06/09/19 09:12 Montelukast Sodium (Singulair Tab*) 10 mg PO DAILY [facility] Last Admin: 06/08/19 08:59 Dose: 10 mg Morphine Sulfate (Morphine Inj (Syringe))*) 2 mg IV Q3H PRN PRN Reason: PAIN - UNRELIEVED Multivitamins/Minerals (Theragran/Minerals Tab*) 1 tab PO DAILY [facility] Last Admin: 06/08/19 08:58 Dose: 1 tab Oxycodone HCl (Roxycodone Tab*) 5 mg PO Q4H PRN PRN Reason: PAIN - MODERATE Last Admin: 06/05/19 22:50 Dose: 5 mg Oxycodone HCl (Roxycodone Tab*) 10 mg PO Q4H PRN PRN Reason: PAIN - SEVERE Last Admin: 06/07/19 22:54 Dose: 10 mg Pharmacy Profile Note (Coumadin Per Pharmacy*) 1 note FOLLOW UP .PER PHARMACY PROTOC [facility]; Protocol Prednisone (Deltasone Tab*) 5 mg PO DAILY [facility] Last Admin: 06/08/19 08:59 Dose: 5 mg Tamsulosin HCl (Flomax Cap*) 0.4 mg PO BEDTIME [facility] Last Admin: 06/07/19 22:55 Dose: 0.4 mg Tiotropium [place] (Spiriva Cap.Inh*) 1 cap INH DAILY [facility] Last Admin: 06/08/19 11:20 Dose: 1 cap Warfarin Sodium (Coumadin Tab(*)) 4 mg PO 1700 ONE Stop: 06/08/19 17:01 Vital Signs - 8 hr 06/08/19 06/08/19 06/08/19 11:15 11:21 15:15 Temperature 98.2 F 98.3 F Pulse Rate 56 72 67 Respiratory 17 15 18 Rate Blood Pressure 153/60 128/61 (mmHg) O2 Sat by Pulse 96 94 98 Oximetry Oxygen Devices in Use Now: None Appearance: Comfortable, NAD Eyes: No Scleral Icterus Ears/Nose/Mouth/Throat: Clear Oropharnyx, Mucous Membranes Moist Neck: NL Appearance and Movements; NL JVP Respiratory: Symmetrical Chest Expansion and Respiratory Effort, Clear to Auscultation Cardiovascular: NL Sounds; No Murmurs; No JVD, RRR, No Edema Abdominal: NL Sounds; No Tenderness; No Distention Lymphatic: No Cervical Adenopathy Extremities: No Clubbing, Cyanosis, - - Slight swelling to LLE, but improved from yesterday Skin: No Rash or Ulcers Neurological: Alert and Oriented x 3, NL Muscle Strength and Tone Nutrition: Taking PO's Result Diagrams: 06/08/19 05:47 06/08/19 05:47 Additional Lab and Data: Laboratory Results - last 24 hr 06/07/19 06/08/19 06/08/19 15:57 05:47 05:47 Hgb 10.3 L Hct 29 L Plt Count 146 L MPV 7.5 INR (Anticoag Therapy) 2.50 H 2.32 H Sodium Potassium Chloride Carbon Dioxide Anion Gap BUN Creatinine Est GFR ( Amer) Est GFR (Non-Af Amer) BUN/Creatinine Ratio Glucose Calcium Magnesium 06/08/19 05:47 Hgb Hct Plt Count MPV INR (Anticoag Therapy) Sodium 131 L Potassium 4.4 Chloride 99 L Carbon Dioxide 27 Anion Gap 5 BUN 31 H Creatinine 0.85 Est GFR ( Amer) 103.9 Est GFR (Non-Af Amer) 85.9 BUN/Creatinine Ratio 36.5 H Glucose 110 H Calcium 8.6 Magnesium 2.1 Microbiology and Other Data: Microbiology 06/04/19 14:24 Anaerobic Culture - Final Wound Finegoldia Magna 06/04/19 14:24 Gram Stain - Final Foot Left Wound Culture - Final Staphylococcus Lugdenensis Enterococcus Faecalis Finegoldia Magna Normal Audrey 06/04/19 14:18 Anaerobic Culture - Final Wound Finegoldia Magna 06/04/19 14:18 Gram Stain - Final Foot Left Wound Culture - Final Staphylococcus Lugdenensis Finegoldia Magna 06/02/19 15:13 Aerobic Blood Culture - Final Blood Venous No Growth Day 5 Anaerobic Blood Culture - Final No Growth Day 5 06/02/19 15:13 Aerobic Blood Culture - Final Blood Venous No Growth Day 5 Anaerobic Blood Culture - Final No Growth Day 5 06/02/19 18:35 Skin and Soft Tissue MRSA/MSSA (PCR - Final Foot Left Mrsa Negative S.aureus Negative Gram Stain - Final Wound Culture - Final Normal Audrey Assess/Plan/Problems-Billing Assessment: 84yom PMHx DM, chronic L foot wound and callous, AF, HFpEF, s/p TAVR, HTN, HLD who presented with L lateral foot pain, erythema, edema associated with wound concerning for osteomyelitis. - Patient Problems (1) Hyponatremia Current Visit: No Status: Acute Code(s): E87.1 - HYPO-OSMOLALITY AND HYPONATREMIA SNOMED Code(s): 23144901 Comment: - Improving - Continue home dosing of Lasix - Suspected secondary to hypervolemia. - Placed on fluid restriction (2) Osteomyelitis Comment: -POD4 L 5th metatarsal osteotomy, debridement for osteo -Pt has h/o wound at this site which has healed; he was d/c from wound clinic several months ago. H/o DM, currently off metformin with HA1c 6.5. Here for return of wound -L foot x-ray shows ST swelling, osteopenia, cannot exclude osteo -Ortho consulting- recommend debridement (done 06/04) -Wound cultures sent, positive for Staph, Enterococcos; ID consulting- thank you for recommendations -BC NGTD -Cefepime x3 days; switched to Ancef TID 06/06. Will need 4 weeks IV Ancef than switched to PO. Picc to be placed today. Cont home infusions ordered by Dr Akins (3) Sepsis Comment: - Resolved -Criteria for sepsis met at admission with leukocytosis, fever, infection source -Now afebrile without leukocytosis -Cefepime started; switched to Ancef 06/06 (4) Left leg swelling Comment: - Doppler negative - Improving - Suspected secondary to recent surgery and infection - Cont to monitor (5) Diabetes mellitus Comment: -Previously on metformin, unsure why he stopped medication -HA1C 6.5, slight elevation in fasting BG -Will add FS AC and lispro ss -Will likely need metformin at d/c- discussed with patient, and he would like to forego starting metformin until discussion with primary care provider (6) Heart failure Comment: - Weight previously increased, but trending back down. I suspected this is due to IVF on admission and the fact that patient is only taking Lasix 20 mg when he actually takes 40 mg. Reports he has been refusing the 20 mg at night as he usually takes 2 tabs of 20 mg in the morning. Therefore changed to reflect home dosing. - I/O, daily weights - Continue losartan - Cont Lasix and Metolazone (prn) (7) Atrial fibrillation Comment: -Continue coumadin (8) BPH (benign prostatic hyperplasia) Comment: -Continue tamsulosin (9) COPD (chronic obstructive pulmonary disease) Comment: -Continue home inhalers (10) HLD (hyperlipidemia) Comment: -Continue statin (11) HTN (hypertension) Comment: -Controlled -Continue losartan (12) GELACIO (obstructive sleep apnea) Current Visit: No Status: Chronic Code(s): G47.33 - OBSTRUCTIVE SLEEP APNEA (ADULT) (PEDIATRIC) SNOMED Code(s): 11223893 Comment: -2L O2 NC at night (13) DVT prophylaxis Comment: -Continue Warfarin Status and Disposition: Inpatient. Discharge when stable. Attending: Bob Fowler
[2019-06-08] MEDS ORDERED: Warfarin TAB(*) 4 MG PO ONE (17:00)
[2019-06-08] MEDS: Acetaminophen TAB* 325 MG PO PRN (21:09)
[2019-06-08] MEDS: oxyCODONE TAB* 5 MG TAB PO PRN (21:10)
[2019-06-08] MEDS: Tamsulosin CAP* 0.4 MG PO SCH (21:10)
[2019-06-08] MEDS: Losartan TAB* 25 MG PO SCH (21:12)
[2019-06-08] MEDS: Magnesium Oxide TAB* 400 MG PO SCH (21:12)
--- NOTE | 2019-06-09 01:21 | DS ---
CC: Dr. Galicia * DISCHARGE SUMMARY: DATE OF ADMISSION: 06/02/19. DATE OF DISCHARGE: 06/09/19. PRIMARY CARE PROVIDER: Dr. Galicia. ATTENDING PHYSICIAN: Dr. Fowler * (dictated by Tg Gordon NP) PRIMARY DIAGNOSES: 1. Osteomyelitis. 2. Hyponatremia. 3. Sepsis. 4. Diabetes. 5. Heart failure. 6. Atrial fibrillation. 7. Benign prostatic hypertrophy. 8. Chronic obstructive pulmonary disease. 9. Hyperlipidemia. 10. Hypertension. 11. Obstructive sleep apnea. CONSULTATIONS WHILE IN THE HOSPITAL: 1. Dr. Mccall, Orthopedics. 2. Dr. Shaq Akins, Infectious Disease. PROCEDURES WHILE IN THE HOSPITAL: Status post left fifth metatarsal osteotomy and debridement. STUDIES WHILE IN THE HOSPITAL: 1. Foot x-ray: Impression: Soft tissue swelling of the fifth metatarsophalangeal joint with osteopenia at the head of the fifth metatarsal, proximal phalanx of the fifth digit. Underlying osteomyelitis cannot be excluded. 2. Venous Doppler study: No left lower extremity deep vein thrombosis. Popliteal cyst. 3. Chest x-ray: Impression: PICC line appears to be in the superior vena cava with the right arm. Cardiomegaly with chronic pleural changes in the left costophrenic angle. No pneumonia is identified. DISCHARGE HOME MEDICATIONS: Continued home medications: 1. Losartan 100 mg p.o. at bedtime. 2. Flomax 0.4 mg p.o. at bedtime. 3. Prednisone 5 mg p.o. daily. 4. Coumadin 4 mg Tuesday, 3 mg Tuesday through Tuesday. 5. Ipratropium 2.5 mcg inhalations daily. 6. Multivitamin 1 tab p.o. daily. 7. Montelukast 10 mg p.o. daily. 8. Metolazone 5 mg p.o. daily p.r.n. 9. Mag oxide 800 mg p.o. at bedtime. 10. Glucosamine 1500 mg p.o. daily. 11. Furosemide 20 mg p.o. b.i.d. 12. Breo Ellipta 1 puff inhalation daily. 13. Vitamin D3, 5000 units p.o. daily. 14. Lipitor 20 mg p.o. daily. 15. Aspirin 81 mg p.o. daily. 16. Vitamin C 500 mg p.o. daily. 17. Albuterol inhalation 2 puff inhalation q.4 hours p.r.n. 18. Tylenol 1 to 2 tabs p.o. p.r.n. New home medications: 1. Cefazolin 2 g continuous infusion x28 days. Changed home medications: No home medications changed. Discontinued home medications: No home medications discontinued. HISTORY OF PRESENT ILLNESS/HOSPITAL COURSE: Mr. Redmond is an 84-year-old male with a past medical history significant for atrial fibrillation, aortic stenosis , COPD, CLL, diabetes, BPH, GELACIO, hypertension, hyperlipidemia, who presented to the emergency department on 06/02/19 with complaints of pain, redness, and swelling associated with a wound on the left lateral foot. Please see history and physical dictated by myself for complete summary of the events leading up to the hospitalization, but in short, on admission, the patient was noted to have cellulitis to the left foot wound that was chronic, that has previously improved but then worsened. The patient was noted to meet sepsis criteria. The patient was admitted to the medical floor for further evaluation and treatment. During this hospitalization, the patient was evaluated by Orthopedics and it was determined that the patient would benefit from debridement and fifth metatarsal head removal. The patient underwent this procedure on 06/04/19. The patient has recovered well. The patient's pain has been well managed. The patient is heel weightbearing. PT and OT evaluated the patient while he was here. Wound cultures were taken during surgery and Dr. Shaq Akins from [place] was consulted. The patient was initially on cefepime, but then switched to Ancef. The patient has been recovering well. The patient has remained afebrile since his admission. The patient has remained free from tachycardia. The patient's leukocytosis has improved. The patient's hospitalization was further complicated by mild hyponatremia. It is suspected it was due to the fact that the patient was only taking 20 mg of Lasix when in fact he should be taking 40 mg of Lasix. Therefore, his Lasix was resumed at his regular dose. He will be placed on fluid restriction and his hyponatremia has been improving. The patient's stay was also slightly complicated by swelling to the left lower extremity. Given the patient's concern of swelling, a Doppler was obtained, which was negative. We suspect the swelling is secondary to recent surgery and infection. The patient is stable for discharge home. Vital Signs: Temp 98.8, HR 64, RR 18, O2 saturation 98% on room air, BP 141/58. REVIEW OF SYSTEMS: The patient reports pain in left lower extremity, specifically foot, that is well controlled. The patient denies fever, chills, calf pain, chest pain, shortness of breath, nausea or vomiting. A 14-point review of systems was completed and all were negative. PHYSICAL EXAMINATION: General: Mr. Redmond is an 84-year-old male who is lying in bed. Appears to be in no acute distress. Appears stated age. HEENT: EOMs intact. PERRLA. Oral mucosa is moist, without lesion. Posterior oropharynx is clear. Neck: Supple. No lymphadenopathy. Respiratory: Lungs are clear to auscultation. No wheezes, rhonchi, or rales. Cardiac: S1 and S2 present. Regular rate and rhythm. No murmurs, rubs, or gallops. Abdomen: Soft, nontender. Bowel sounds are normoactive. Extremities: Very slight swelling to the left lower extremity. Otherwise, he is free from edema, clubbing or cyanosis. Cap refill is brisk, bilateral toes. Musculoskeletal: No pain or deformities. Neuro: Neuro exam is grossly intact. Skin: Skin is grossly intact. Dressing to the left foot is clean, dry, and intact, and was changed on 06/08/19. DISCHARGE PLAN/FOLLOWUP: 1. Status post left fifth metatarsal debridement osteotomy, postop day 4, secondary to osteomyelitis. The patient had dressing changed on 06/08/19. The patient will need dressing changes every other day or as needed. The patient is to be heel weightbearing to left lower extremity. The patient will have physical therapy at home. The patient will continue Coumadin for DVT prophylaxis. The patient will need to follow up with Dr. Mccall in 7 to 10 days. As for osteomyelitis antibiotics, the patient will be discharged on Ancef 2 g continuous for 28 days. The patient will then be switched to p.o. The patient should follow up with Dr. Shaq Akins. 2. Hyponatremia: The patient's hyponatremia is improving as it is 131 today, which is up from 129 yesterday. I would recommend the patient follow up with primary care next week and have a repeat BMP. 3. Sepsis: The patient's sepsis has resolved as he no longer has leukocytosis or fever. The patient should continue with Ancef as mentioned above. 4. Diabetes mellitus: The patient was previously on metformin, and it is unclear why he stopped this medication. His A1c is 6.5. Previous provider discussed starting metformin with the patient but he would like to forgo this at this time and discuss this with primary care. I have encouraged his primary care to follow up with further discussion of medical treatment and lifestyle changes for diabetes. 5. Heart failure: The patient has not had signs and symptoms of exacerbation. He is to continue his home medications as same. I would encourage him to take his daily weights and follow up with his primary care. 6. Atrial fibrillation: The patient should continue his Coumadin. 7. BPH: The patient should continue his tamsulosin. 8. COPD: The patient has frequent signs of COPD exacerbation; therefore, he should continue his home inhalers. 9. Hyperlipidemia: The patient should continue his statin. 10. Hypertension: The patient should continue his losartan. 11. GELACIO: The patient reports he has a history of sleep apnea and does not wear a CPAP, but instead he wears 2 L nasal cannula at night. The patient should continue this. 12. Followup: The patient should follow up with Dr. Mccall in 6 to 10 days. The patient should follow up with Dr. Shaq Akins as previously recommended. The patient should follow up with his primary care in 1 week and have a repeat BMP. 13. Education: The patient will be educated on signs and symptoms of new or worsening conditions and when to return to the emergency department. This is a summarized report of a complex medical history and hospital stay. For further details, please see the entire medical record. TIME SPENT: Approximately 35 minutes were spent on this discharge, greater than half the time was spent [id number] with the patient, discussing discharge plans and instructions. TG GORDON NP [id number]/[facility] #: [id number] NIXON
[2019-06-09] MEDS: ceFAZolin VIAL(*) 2 GM in NS 0.9% 100 ML* 100 ML IVPB SCH ×2 (04:48→11:02)
[2019-06-09 05:13] LABS: INR 2.11 (0.82-1.09)
[2019-06-09] MEDS: Insulin LISPRO* 1 UNITS UNIT SUBCUT SCH ×2 (07:50→10:50)
[2019-06-09] MEDS: Tiotropium CAP.INH* CAP.INH/18 MCG (USE ORDER SET !) INH SCH (08:00)
[2019-06-09] MEDS: Fluticasone/Vilanterol MDI(NF) 200/25 MDI INH SCH (08:02)
[2019-06-09] MEDS: Furosemide TAB* 40 MG PO SCH (08:25)
[2019-06-09] MEDS: predniSONE TAB* 5 MG PO SCH (08:26)
[2019-06-09] MEDS: Ascorbic Acid TAB* 500 MG PO SCH (08:26)
[2019-06-09] MEDS: Atorvastatin* 20 MG TAB PO SCH (08:26)
[2019-06-09] MEDS: Montelukast Sodium TAB* 10 MG PO SCH (08:26)
[2019-06-09] MEDS: Cholecalciferol TAB* 1000 UNITS PO SCH (08:26)
[2019-06-09] MEDS: Multivitamins/Minerals TAB PO SCH (08:26)
[2019-06-09] MEDS: Aspirin 81 mg CHEW TAB* 81 MG TAB.CHEW PO SCH (08:26)
[2019-06-09 13:23] VITALS: BP 132/56
[2019-06-09] MEDS ORDERED: Warfarin TAB(*) 4 MG PO ONE (17:00)
--- NOTE | 2019-06-09 17:03 | PN ---
Subjective Date of Service: 06/09/19 Interval History: Patient seen and examined. Ready for discharge, pending final IV cefazolin infusion and will go home with [facility] today. Offers no complaints. Feeling well. No fevers or chills. Foot pain 01/21. Objective Vital Signs - 8 hr 06/09/19 11:44 Temperature 97.6 F Pulse Rate 52 Respiratory 16 Rate Blood Pressure 132/56 (mmHg) O2 Sat by Pulse 98 Oximetry Oxygen Devices in Use Now: None Appearance: alert,NAD Eyes: No Scleral Icterus, PERRLA Ears/Nose/Mouth/Throat: NL Teeth, Lips, Gums, Mucous Membranes Moist Neck: NL Appearance and Movements; NL JVP, Trachea Midline Respiratory: Symmetrical Chest Expansion and Respiratory Effort, Clear to Auscultation Cardiovascular: NL Sounds; No Murmurs; No JVD, RRR, No Edema Abdominal: NL Sounds; No Tenderness; No Distention Extremities: No Clubbing, Cyanosis, - - left foot 5th metatarsal amp dressed, CDI Neurological: Alert and Oriented x 3 Nutrition: Taking PO's Result Diagrams: 06/08/19 05:47 06/08/19 05:47 Additional Lab and Data: Laboratory Results - last 24 hr 06/07/19 06/08/19 06/08/19 15:57 05:47 05:47 Hgb 10.3 L Hct 29 L Plt Count 146 L MPV 7.5 INR (Anticoag Therapy) 2.50 H 2.32 H Sodium Potassium Chloride Carbon Dioxide Anion Gap BUN Creatinine Est GFR ( Amer) Est GFR (Non-Af Amer) BUN/Creatinine Ratio Glucose Calcium Magnesium 06/08/19 05:47 Hgb Hct Plt Count MPV INR (Anticoag Therapy) Sodium 131 L Potassium 4.4 Chloride 99 L Carbon Dioxide 27 Anion Gap 5 BUN 31 H Creatinine 0.85 Est GFR ( Amer) 103.9 Est GFR (Non-Af Amer) 85.9 BUN/Creatinine Ratio 36.5 H Glucose 110 H Calcium 8.6 Magnesium 2.1 Microbiology and Other Data: Microbiology 06/04/19 14:24 Anaerobic Culture - Final Wound Finegoldia Magna 06/04/19 14:24 Gram Stain - Final Foot Left Wound Culture - Final Staphylococcus Lugdenensis Enterococcus Faecalis Finegoldia Magna Normal Audrey 06/04/19 14:18 Anaerobic Culture - Final Wound Finegoldia Magna 06/04/19 14:18 Gram Stain - Final Foot Left Wound Culture - Final Staphylococcus Lugdenensis Scott Navas 06/02/19 15:13 Aerobic Blood Culture - Final Blood Venous No Growth Day 5 Anaerobic Blood Culture - Final No Growth Day 5 06/02/19 15:13 Aerobic Blood Culture - Final Blood Venous No Growth Day 5 Anaerobic Blood Culture - Final No Growth Day 5 06/02/19 18:35 Skin and Soft Tissue MRSA/MSSA (PCR - Final Foot Left Mrsa Negative S.aureus Negative Gram Stain - Final Wound Culture - Final Normal Audrey Assess/Plan/Problems-Billing Assessment: 84yom PMHx DM, chronic L foot wound and callous, AF, HFpEF, s/p TAVR, HTN, HLD who presented with L lateral foot pain, erythema, edema associated with osteomyelitis, 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 - Patient Problems (1) Osteomyelitis Code(s): M86.9 - OSTEOMYELITIS, UNSPECIFIED SNOMED Code(s): 84923321 Comment: - POD5 L 5th metatarsal osteotomy, debridement for osteo; previous hx of wound at same site with discharge from wound clinic - Wound cultures positive for Staph, Enterococcos with ID recommending 4 weeks IV Ancef than switched to PO (2) Sepsis Comment: - 2/2 osteomyelitis, now resolved (3) Atrial fibrillation Code(s): I48.91 - UNSPECIFIED ATRIAL FIBRILLATION SNOMED Code(s): 32001810 Comment: - Continue coumadin (4) BPH (benign prostatic hyperplasia) Code(s): N40.0 - BENIGN PROSTATIC HYPERPLASIA WITHOUT LOWER URINRY TRACT SYMP SNOMED Code(s): 473191749 Comment: - Continue tamsulosin (5) COPD (chronic obstructive pulmonary disease) Status: Chronic Priority: Medium Code(s): J44.9 - CHRONIC OBSTRUCTIVE PULMONARY DISEASE, UNSPECIFIED SNOMED Code(s): 21291667 Comment: -Continue home inhalers (6) HLD (hyperlipidemia) Code(s): E78.5 - HYPERLIPIDEMIA, UNSPECIFIED SNOMED Code(s): 75898586 Comment: - Continue statin (7) HTN (hypertension) Code(s): I10 - ESSENTIAL (PRIMARY) HYPERTENSION SNOMED Code(s): 36773805 Comment: - Controlled - Continue losartan (8) GELACIO (obstructive sleep apnea) Code(s): G47.33 - OBSTRUCTIVE SLEEP APNEA (ADULT) (PEDIATRIC) SNOMED Code(s): 47495483 Comment: - 2L O2 NC at night (9) Type 2 diabetes mellitus Comment: - A1c 6.0, patient not on metformin anymore, should follow up with PCP while foot is healing to decide further diabetic treatment (10) Full code status Code(s): Z78.9 - OTHER SPECIFIED HEALTH STATUS SNOMED Code(s): 699806171 Status and Disposition: Discharge today.
== END 2019-06-09 13:10 | disposition home health service (06) | DRG 854 ==
LOC: ED 14:02 → MED 19:01 → OBSVTOIN 06-03 16:00
PROVIDERS: ADMIT Internal Medicine; ATTEND Internal Medicine
PROC: 0JBR0ZZ Excision of Left Foot Subcutaneous Tissue and Fascia, Open Approach (ICD-10-PCS; 2019-06-04)
PROC: 0QBP0ZZ Excision of Left Metatarsal, Open Approach (ICD-10-PCS; principal; 2019-06-04 13:00)
PROC: 02HV33Z Insertion of Infusion Device into Superior Vena Cava, Percutaneous Approach (ICD-10-PCS; 2019-06-08)
DX: A41.9 Sepsis, unspecified organism (principal); C91.10 Chronic lymphocytic leukemia of B-cell type not having achieved remission; E87.1 Hypo-osmolality and hyponatremia; L03.116 Cellulitis of left lower limb; M86.9 Osteomyelitis, unspecified; I48.91 Unspecified atrial fibrillation; I50.9 Heart failure, unspecified; J44.9 Chronic obstructive pulmonary disease, unspecified; 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 heart failure; E11.8 Type 2 diabetes mellitus with unspecified complications; E87.70 Fluid overload, unspecified; E11.621 Type 2 diabetes mellitus with foot ulcer; 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 part of left foot with unspecified severity; N40.0 Benign prostatic hyperplasia without lower urinary tract symptoms; G47.33 Obstructive sleep apnea (adult) (pediatric); I35.0 Nonrheumatic aortic (valve) stenosis; I87.8 Other specified disorders of veins; E78.5 Hyperlipidemia, unspecified; M85.872 Other specified disorders of bone density and structure, left ankle and foot; M79.89 Other specified soft tissue disorders; B95.7 Other staphylococcus as the cause of diseases classified elsewhere; Z99.81 Dependence on supplemental oxygen; Z95.2 Presence of prosthetic heart valve; Z79.01 Long term (current) use of anticoagulants; Z79.84 Long term (current) use of oral hypoglycemic drugs; Z79.1 Long term (current) use of non-steroidal anti-inflammatories (NSAID); Z79.82 Long term (current) use of aspirin; Z79.51 Long term (current) use of inhaled steroids; Z79.52 Long term (current) use of systemic steroids; Z79.899 Other long term (current) drug therapy; Z88.0 Allergy status to penicillin; Z88.8 Allergy status to other drugs, medicaments and biological substances; Z91.018 Allergy to other foods; Z82.49 Family history of ischemic heart disease and other diseases of the circulatory system; Z80.0 Family history of malignant neoplasm of digestive organs; Z87.891 Personal history of nicotine dependence
CPT/HCPCS: 36415; 71045; 80048; 80053; 81003; 83036; 83605; 83735; 84550; 85014; 85018; 85025; 85049; 85610; 85652; 85730; 86140; 87040; 87070; 87073; 87076; 87077; 87186; 87205; 87640; 87641; 88304; 88311; 94640; 99283; A9270-GY; C1751; G8987-GP-CI; G8988-GP-CH; J0690; J0692; J2001; J2250; J2405; J2704; J3010; J3490; J7512

== ENCOUNTER 2019-12-20 10:35 | Inpatient (IN) | payer MEDICARE, OTHER ==
--- OUTSIDE RECORDS SUMMARY | 2019-12-20 10:47 | XMS REPORT | Continuity of Care Document ---
:1935 External Reference #:[id number] Author Name Chiquita Mancilla MD (transmitted by agent of provider Inna Mccoy) Address [address], [address] [place] [id number] Care Team Providers Name Role Phone Abel Galicia DO - Family Care Team Information Scrap Baler Medicine Problems Active Problems Provider Date Atrial fibrillation Fan Hay M.D., [facility], Onset: 04/02/2014 FASND Chronic atrial fibrillation Fan Hay M.D., [facility], Onset: 04/16/2016 FASND Aortic valve disorder Fan Hay M.D., [facility], Onset: 05/12/2018 FASNC Type 2 diabetes mellitus with ulcer Mookie Hill MD Onset: 06/12/2018 Cellulitis of left lower limb Mookie Hill MD Onset: 06/12/2018 Atherosclerosis of arteries of the Tru Nomi Hancock M.D. Onset: 09/13/2018 extremities Heart failure, unspecified Fan Hay M.D., [facility], Onset: 03/20/2019 FASNC Pulmonary hypertension Fan Hay M.D., [facility], Onset: 06/22/2019 FASNC Chronic osteomyelitis of ankle Roosevelt Mccall M.D. Onset: 07/19/2019 and/or foot Type 2 diabetes mellitus Luh Encarnacion NP Onset: 07/25/2019 Social History Type Date Description Comments Sex Unknown Tobacco Use Start: Unknown Former Cigarette Smoker Smoked 5 per day for End: Unknown 2 years Smoking Status Reviewed: 11/15/19 Former Cigarette Smoker Smoked 5 per day for 2 years ETOH Use Occasionally consumes alcohol Tobacco Use Start: Unknown Patient is a former End: Unknown smoker Recreational Drug Use Denies Drug Use Exercise Type/Frequency Exercises regularly Stays active throughout the day Allergies, Adverse Reactions, Alerts Active Allergies Reaction Severity Comments Date Penicillin swelling 04/02/2014 Altace Severe cough 04/02/2014 Medications Active Medications SIG Qnty Indications Ordering Date Provider Magox 400 take one half Unknown 400(241.3mg) tablet (200 mg) mg Tablets once a day Atorvastatin Calcium 1 by mouth every Unknown day 20mg Tablets Triamcinolone 1 application twice Unknown Acetonide daily to affected 0.5% Ointment area as directed Prednisone 1 by mouth every Unknown 10mg (48) other day TBPK Magnesium 1 po daily Unknown Aspirin Adult Low 1 by mouth every Unknown Dose day 81mg Tablets DR Tamsulosin HCL 1 by mouth every Unknown 0.4mg day Capsules Proair HFA 2 puffs by mouth Unknown 108(90Base) every 4 hours as mcg/Act Aerosol needed Vitamin D3 1 by mouth every Unknown 5000Unit day Capsules Singulair 1 by mouth every Unknown 10mg Tablets day Furosemide 1 by mouth twice Unknown 20mg Tablets daily ( med change increase 02[place] [facility] [place] Breo Ellipta Inhale One puff By Unknown Mouth Every Day 200-25mcg/Inh Aerosol Rinse Mouth After Glucosamine 2 daily Unknown 500mg Tablets Acetaminophen Takes 1 or 2 tabs Unknown 500mg by mouth as needed Tablets Multivitamins daily Unknown Vitamin C 1 by mouth every Unknown 500mg day Capsules Losartan Potassium 1 tablet daily 90tabs Unknown 100mg Tablets Coumadin 1 tablet on tue, Unknown 3mg Tablets wed, tue and 2 tablets , th, sat, sun as directed History Medications Cefepime HCL 1 GM iv every 12 Luh Jake 07/06/2019 - hours x 10 days MARCI Encarnacion 07/18/2019 1gm Solution Rec Cefepime 2 GM IV x 1 on Luh Jake 07/05/2019 - 07/04/19 MARCI Encarnacion 07/18/2019 Knee Scooter Disp 1 knee 1units M86.9 Roosevelt Mccall M.D. 06/14/2019 - scooter 09/04/2019 Medications Administered in Office Medication SIG Qnty Indications Ordering Provider Date Inj, Regadenoson, 0.1 MG Fan Hay M.D., 03/24/2015 Injection FACC, FASNC Technetium TC 99M Fan Hay M.D., 03/24/2015 Tetrofosmin, Per Unit Dose FACC, FASNC Up To 40 Millicuries Injection Immunizations Description No Information Available Vital Signs Date Vital Result Comment 11/19/2019 8:44am Height 69 inches 5'9" Weight 224.00 lb Heart Rate 61 /min BP Systolic Sitting 130 mmHg BP Diastolic Sitting 60 mmHg O2 % BldC Oximetry 92 % BMI (Body Mass Index) 33.1 kg/m2 11/15/2019 9:40am Height 69 inches 5'9" Weight 215.00 lb Heart Rate 61 /min BP Systolic 120 mmHg BP Diastolic 68 mmHg Respiratory Rate 16 /min Pain Level 0 BMI (Body Mass Index) 31.7 kg/m2 Results Test Acquired Date Facility Test Result H/L Range Note Inr/Protime 07/06/2019 [facility] Inr 1.96 High 0.82-1.09 [address] [place] [address] [phone] Comp Metabolic 07/06/2019 [facility] Sodium 130 mmol/L Low 135 -145 Panel [address] [place] [address] [phone] Potassium 4.2 mmol/L Normal 3.5-5.0 Chloride 96 mmol/L Low 101-111 Co2 Carbon Dioxide 27 mmol/L Normal 22-32 Anion Gap 7 mmol/L Normal 2-11 Glucose 195 mg/dL High 70-100 Blood Urea Nitrogen 20 mg/dL Normal 6-24 Creatinine 0.81 mg/dL Normal 0.67-1.17 BUN/Creatinine Ratio 24.7 High 8-20 Calcium 8.9 mg/dL Normal 8.6-10.3 Total Protein 6.4 g/dL Normal 6.4-8.9 Albumin 4.1 g/dL Normal 3.2-5.2 Globulin 2.3 g/dL Normal 2-4 Albumin/Globulin Ratio 1.8 Normal 1-3 Total Bilirubin 0.90 mg/dL Normal 0.2-1.0 Alkaline Phosphatase 78 U/L Normal 34-104 Alt 38 U/L Normal 7-52 Ast 38 U/L Normal 13-39 Egfr Non- 90.8 >60 Egfr 109.9 >60 2 Laboratory test 07/06/2019 [facility] C Reactive 1.93 mg/L Normal <8.01 [address] [place] [address] [phone] CBC Auto Diff 07/06/2019 [facility] White Blood 6.0 Normal 3.5 -10.[address] Count 10^3/[place] [address] [phone] Red Blood Count 3.68 10^6/uL Low 4.18-5.48 Hemoglobin 11.1 g/dL Low 14.0-18.0 Hematocrit 33 % Low 42-52 Mean Corpuscular Volume 90 fL Normal 80-94 Mean Corpuscular Hemoglobin 30 pg Normal 27-31 Mean Corpuscular HGB Conc 34 g/dL Normal 31-36 Red Cell Distribution Width 14 % Normal 10-15 Platelet Count 209 10^3/uL Normal 150-450 Mean Platelet Volume 7.3 fL Low 7.4-10.4 Abs Neutrophils 4.6 10^3/uL Normal 1.5-7.7 Abs Lymphocytes 0.8 10^3/uL Low 1.0-4.8 Abs Monocytes 0.5 10^3/uL Normal 0-0.8 Abs Eosinophils 0.1 10^3/uL Normal 0-0.6 Abs Basophils 0.1 10^3/uL Normal 0-0.2 Abs Nucleated RBC 0.0 10^3/uL Granulocyte % 76.7 % Lymphocyte % 13.4 % Monocyte % 7.6 % Eosinophil % 1.3 % Basophil % 1.0 % Nucleated Red Blood Cells % 0.1 Laboratory test 07/06/2019 [facility] Erythrocyte Sed 20 mm/Hr High 0-[address] [place] [address] [phone] Standard intensity warfarin therapeutic range: 2.0-3.0 High intensity warfarin therapeutic range: 2.5-3.5 2 Because ethnic data is not always [...] 5 Kidney failure <15 (or dialysis) 3 [id number] [facility] - Floor: , #: [id number] Procedures Date Code Description Status 09/10/2019 92254 Diffusing Capacity Completed 09/10/2019 26357 Spirometry Incl Graphic Record Completed 06/28/2019 60439 Negative Pressure Wound Therapy Less Than 50 Square CM Completed 06/28/2019 71736 Negative Pressure Wound Therapy Less Than 50 Square CM Completed 06/28/2019 11778 I & D Foot Below Fascia, Single Bursal Space Completed 06/28/2019 32573 I & D Foot Below Fascia, Single Bursal Space Completed 06/22/2019 63698 EKG Tracing & Interpretation Completed 06/18/2019 19140 ECHO Transthoracic, Real-Time 2D With Doppler And Color Completed Flow 06/18/2019 77224 ECHO Transthoracic, Real-Time 2D With Doppler And Color Completed Flow 06/04/2019 91630 Osteotomy Metatarsal Other Than First Completed 06/04/2019 89328 Osteotomy Metatarsal Other Than First Completed Medical Devices Description No Information Available Encounters Type Date Location Provider Dx Diagnosis Office Visit 10/23/2019 [facility] Roosevelt Mccall L97.529 Non- pressure 10:00a at [facility] chronic ulcer oth prt left foot w unsp severity Office Visit 10/04/2019 [facility] Roosevelt Mccall L97.529 Non- pressure 9:45a at [facility] chronic ulcer oth prt left foot w unsp severity Office Visit 07/25/2019 [facility] Luh Joseph M86.672 Other chronic 1:30p Infectious Encarnacion, HE[employer] ADVISOR osteomyelitis, Diseases left ankle and foot E11.69 Type 2 diabetes mellitus with other specified complication L97.529 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 w unsp severity E11.621 Type 2 diabetes mellitus with foot ulcer Office Visit 07/04/2019 [facility] E11.69 Type 2 diabetes 6:40a For Infectious Alysha, HEALTH ADVISOR mellitus with Diseases other specified complication M86.672 Other chronic osteomyelitis, left ankle and foot L03.116 Cellulitis of left lower limb Office Visit 07/04/2019 9:55a [facility] E11.622 Type 2 Assoc, Leatha Sanjana, diabetes Hospitalists HEALTH ADVISOR mellitus with other skin ulcer L97.329 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 I48.91 Unspecified atrial fibrillation J44.9 Chronic obstructive pulmonary disease, unspecified Office Visit 07/03/2019 9:54a [facility] E11.622 Type 2 Assoc, Leatha Sanjana, diabetes Hospitalists HEALTH ADVISOR mellitus with other skin ulcer L97.329 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 I48.91 Unspecified atrial fibrillation J44.9 Chronic obstructive pulmonary disease, unspecified G47.33 Obstructive sleep apnea (adult) (pediatric) I10 Essential (primary) hypertension E78.5 Hyperlipidemia, unspecified Office Visit 07/02/2019 [facility] E11.69 Type 2 diabetes 6:38a For Infectious Alysha HEALTH ADVISOR mellitus with Diseases other specified complication M86.672 Other chronic osteomyelitis, left ankle and foot L03.116 Cellulitis of left lower limb Office Visit 07/02/2019 9:54a [facility] E11.622 Type 2 Assoc,[facility] Sanjana, diabetes Hospitalists HEALTH ADVISOR mellitus with other skin ulcer L97.329 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 I48.91 Unspecified atrial fibrillation J44.9 Chronic obstructive pulmonary disease, unspecified G47.33 Obstructive sleep apnea (adult) (pediatric) I10 Essential (primary) hypertension Office Visit 07/01/2019 9:53a [facility] E11.622 Type 2 Assoc, Leatha Sanjana, diabetes Hospitalists HEALTH ADVISOR mellitus with other skin ulcer L97.329 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 I48.91 Unspecified atrial fibrillation J44.9 Chronic obstructive pulmonary disease, unspecified G47.33 Obstructive sleep apnea (adult) (pediatric) [facility] L97.329 Non-pressure 9:53a Assoc,yari Allan, chronic ulcer of Hospitalists HEALTH ADVISOR left ankle with unsp severity E11.622 Type 2 diabetes mellitus with other skin ulcer I48.91 Unspecified atrial fibrillation J44.9 Chronic obstructive pulmonary disease, unspecified G47.33 Obstructive sleep apnea (adult) (pediatric) Office Visit 06/29/2019 [facility] Kemal E87.1 Hypo-osmolality and 9:52a Assoc,KO Tapia hyponatremia Hospitalists I48.91 Unspecified atrial fibrillation I11.9 Hypertensive heart disease without heart failure J44.9 Chronic obstructive pulmonary disease, unspecified Office Visit 06/27/2019 [facility] Luh Visdsilviano E11.69 Type 2 diabetes 9:15a For Infectious Encarnacion, HEALTH ADVISOR mellitus with Diseases other specified complication M86.672 Other chronic osteomyelitis, left ankle and foot L03.116 Cellulitis of left lower limb 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, superfic incisional surgical site, subs Office Visit 06/27/2019 [facility] Kemal E87.1 Hypo-osmolality and 9:50a Assoc,KO Tapia hyponatremia Hospitalists E11.9 Type 2 diabetes mellitus without complications I48.91 Unspecified atrial fibrillation I11.9 Hypertensive heart disease without heart failure Office 06/26/2019 [facility] Alysa E87.1 Hypo-osmolality and Visit 5:28p Assoc,KO Mcgowan hyponatremia Hospitalists I48.91 Unspecified atrial fibrillation I10 Essential (primary) hypertension E78.5 Hyperlipidemia, unspecified J44.9 Chronic obstructive pulmonary disease, unspecified Office Visit 06/22/2019 1:30p [facility] Fan Rodney I27.20 Pulmonary Of Divya Hay M.D., hypertension, FACC, FASNC unspecified I48.2 Chronic atrial fibrillation R94.31 Abnormal electrocardiogram [ECG] [EKG] [facility] M86.9 Osteomyelitis, 11:13a Assoc,pc Leatha Doto, unspecified Hospitalists HEALTH ADVISOR A41.81 Sepsis due to Enterococcus E87.1 Hypo-osmolality and hyponatremia E11.9 Type 2 diabetes mellitus without complications 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 I50.9 Heart failure, unspecified J44.9 Chronic obstructive pulmonary disease, unspecified G47.33 Obstructive sleep apnea (adult) (pediatric) Office Visit 06/08/2019 [facility] M86.9 Osteomyelitis, 11:12a yari Alonso NP unspecified Hospitalists B95.2 Enterococcus as the cause of diseases classified elsewhere E87.1 Hypo-osmolality and hyponatremia 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 I50.9 Heart failure, unspecified E11.9 Type 2 diabetes mellitus without complications I48.91 Unspecified atrial fibrillation G47.33 Obstructive sleep apnea (adult) (pediatric) Office Visit 06/07/2019 [facility] M86.9 Osteomyelitis, 11:12a yari Alonso NP unspecified Hospitalists B95.2 Enterococcus as the cause of diseases classified elsewhere E87.1 Hypo-osmolality and hyponatremia E11.9 Type 2 diabetes mellitus without complications 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 I50.9 Heart failure, unspecified Office Visit 06/06/2019 10:19a [facility] E11.621 Type 2 For Infectious Encarnacion, HEALTH ADVISOR diabetes Diseases mellitus with foot ulcer L97.529 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 w unsp severity L03.116 Cellulitis of left lower limb Office Visit 06/06/2019 [facility] B95.2 Enterococcus as 11:12a yari Alonso PA the cause of Hospitalists diseases classified elsewhere M86.9 Osteomyelitis, unspecified E11.621 Type 2 diabetes mellitus with foot ulcer L97.529 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 w unsp severity 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 I50.9 Heart failure, unspecified I48.91 Unspecified atrial fibrillation G47.33 Obstructive sleep apnea (adult) (pediatric) Office Visit 06/05/2019 [facility] M86.9 Osteomyelitis, 11:11a ayri Alonso PA unspecified Hospitalists E11.621 Type 2 diabetes mellitus with foot ulcer L97.529 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 w unsp severity 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 I50.9 Heart failure, unspecified I48.91 Unspecified atrial fibrillation J44.9 Chronic obstructive pulmonary disease, unspecified G47.33 Obstructive sleep apnea (adult) (pediatric) Office Visit 06/04/2019 [facility] L03.116 Cellulitis of 11:11a Assocyari PA left lower limb Hospitalists E11.621 Type 2 diabetes mellitus with foot ulcer L97.529 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 w unsp severity 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 I50.9 Heart failure, unspecified I48.91 Unspecified atrial fibrillation J44.9 Chronic obstructive pulmonary disease, unspecified G47.33 Obstructive sleep apnea (adult) (pediatric) Office Visit 06/03/2019 [facility] L03.116 Cellulitis of 11:10a Assocyari PA left lower limb Hospitalists L97.529 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 w unsp severity E11.621 Type 2 diabetes mellitus with foot ulcer I50.9 Heart failure, unspecified 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 I48.91 Unspecified atrial fibrillation G47.33 Obstructive sleep apnea (adult) (pediatric) Office Visit 06/02/2019 [facility] L03.116 Cellulitis of 11:10a Assyari witt NP left lower limb Hospitalists A41.9 Sepsis, unspecified organism E11.621 Type 2 diabetes mellitus with foot ulcer L97.528 Non-prs chronic ulcer oth prt left foot with oth severity Assessments Date Code Description Provider 11/19/2019 J44.9 Chronic obstructive pulmonary Chiquita Mancilla MD disease, unspecified 11/19/2019 R09.02 Hypoxemia Chiquita Mancilla MD 10/23/2019 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 Roosevelt Mccall M.D. part of left foot with unspecified severity 10/04/2019 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 Roosevelt Mccall M.D. part of left foot with unspecified severity 09/20/2019 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 Roosevelt Cal, M.D. part of left foot with unspecified severity 09/20/2019 M86.672 Other chronic osteomyelitis, left Roosevelt Mccall M.D. ankle and foot 09/10/2019 J44.9 Chronic obstructive pulmonary Chiquita Mancilla MD disease, unspecified 09/05/2019 M86.672 Other chronic osteomyelitis, left Roosevelt Mccall M.D. ankle and foot 09/05/2019 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 Roosevelt Mccall M.D. part of left foot with unspecified severity 08/22/2019 M86.672 Other chronic osteomyelitis, left Roosevelt Mccall M.D. ankle and foot 08/15/2019 M86.672 Other chronic osteomyelitis, left Roosevelt Mccall M.D. ankle and foot 08/09/2019 M86.672 Other chronic osteomyelitis, left Roosevelt Mccall M.D. ankle and foot 08/02/2019 M86.672 Other chronic osteomyelitis, left Roosevelt Mccall M.D. ankle and foot 08/02/2019 E11.69 Type 2 diabetes mellitus with other Roosevelt Mccall M.D. specified complication 07/25/2019 M86.672 Other chronic osteomyelitis, left Luh Encarnacion NP ankle and foot 07/25/2019 E11.69 Type 2 diabetes mellitus with other Luh Encarnacion NP specified complication 07/25/2019 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 Encarnacion NP part of left foot with unspecified severity 07/25/2019 E11.621 Type 2 diabetes mellitus with foot Luh Encarnacion NP ulcer 07/19/2019 M86.672 Other chronic osteomyelitis, left Roosevelt Mccall M.D. ankle and foot 07/10/2019 M86.672 Other chronic osteomyelitis, left Roosevelt Mccall M.D. ankle and foot 07/04/2019 Z47.89 Encounter for other orthopedic KO Smith aftercare 07/04/2019 E11.622 Type 2 diabetes mellitus with other Mariya Allan NP skin ulcer 07/04/2019 E11.69 Type 2 diabetes mellitus with other Luh Encarnacion NP specified complication 07/04/2019 L97.329 Non-pressure chronic ulcer of left Mariya Leatha Doto , HEALTH ADVISOR ankle with unspecified severity 07/04/2019 M86.672 Other chronic osteomyelitis, left Luh Encarnacion, HEALTH ADVISOR ankle and foot 07/04/2019 I48.91 Unspecified atrial fibrillation Mariya Allan, HEALTH ADVISOR 07/04/2019 L03.116 Cellulitis of left lower limb Luh Encarnacion, HEALTH ADVISOR 07/04/2019 J44.9 Chronic obstructive pulmonary Mariya Allan, HEALTH ADVISOR disease, unspecified 07/03/2019 Z47.89 Encounter for other orthopedic KO Smith aftercare 07/03/2019 E11.622 Type 2 diabetes mellitus with other Mariya Allan , HE[employer] ADVISOR skin ulcer 07/03/2019 L97.329 Non-pressure chronic ulcer of left Mariya Allan , HE[employer] ADVISOR ankle with unspecified severity 07/03/2019 I48.91 Unspecified atrial fibrillation Mariya Leyvati, HEALTH ADVISOR 07/03/2019 J44.9 Chronic obstructive pulmonary Mariya Allan, HEALTH ADVISOR disease, unspecified 07/03/2019 G47.33 Obstructive sleep apnea (adult) Mariya Leyvati, HEALTH ADVISOR (pediatric) 07/03/2019 I10 Essential (primary) hypertension Mariya Leyvati, HEALTH ADVISOR 07/03/2019 E78.5 Hyperlipidemia, unspecified Mariya Zhang Doto, HEALTH ADVISOR 07/02/2019 Z47.89 Encounter for other orthopedic KO Haley aftercare 07/02/2019 E11.622 Type 2 diabetes mellitus with other Mariya Allan , HEALTH ADVISOR skin ulcer 07/02/2019 E11.69 Type 2 diabetes mellitus with other Luh Encarnacion, HEALTH ADVISOR specified complication 07/02/2019 L97.329 Non-pressure chronic ulcer of left Mariya Allan , HE[employer] ADVISOR ankle with unspecified severity 07/02/2019 M86.672 Other chronic osteomyelitis, left Luh Encarnacion, HEALTH ADVISOR ankle and foot 07/02/2019 I48.91 Unspecified atrial fibrillation Mariya Zhang Dotti, HEALTH ADVISOR 07/02/2019 L03.116 Cellulitis of left lower limb Luh Encarnacion, HEALTH ADVISOR 07/02/2019 J44.9 Chronic obstructive pulmonary Mariya Zhang Doto, HEALTH ADVISOR disease, unspecified 07/02/2019 G47.33 Obstructive sleep apnea (adult) Mariya Leyvao, HEALTH ADVISOR (pediatric) 07/02/2019 I10 Essential (primary) hypertension Mariya Leyvao, HEALTH ADVISOR 07/01/2019 E11.622 Type 2 diabetes mellitus with other Mariya Zhang Doto , HEALTH ADVISOR skin ulcer 07/01/2019 Z47.89 Encounter for other orthopedic MINGO Valentin aftercare 07/01/2019 L97.329 Non-pressure chronic ulcer of left Mariya Zhang Doto , HEALTH ADVISOR ankle with unspecified severity 07/01/2019 I48.91 Unspecified atrial fibrillation Mariya Zhang Doto, HEALTH ADVISOR 07/01/2019 J44.9 Chronic obstructive pulmonary Mariya Zhang Doto, HEALTH ADVISOR disease, unspecified 07/01/2019 G47.33 Obstructive sleep apnea (adult) Mariya Leyvao, HEALTH ADVISOR (pediatric) 06/30/2019 L97.528 Non-pressure chronic ulcer of other Mookie Hill MD part of left foot with other specified severity 06/30/2019 L97.329 Non-pressure chronic ulcer of left Mariya Zhang Doto , HEALTH ADVISOR ankle with unspecified severity 06/30/2019 E11.622 Type 2 diabetes mellitus with other Mariya Zhang Doto , HEALTH ADVISOR skin ulcer 06/30/2019 I48.91 Unspecified atrial fibrillation Mariya Zhang Doto, HEALTH ADVISOR 06/30/2019 J44.9 Chronic obstructive pulmonary Mariya Zhang Doto, HEALTH ADVISOR disease, unspecified 06/30/2019 G47.33 Obstructive sleep apnea (adult) Mariya Leyvao, HEALTH ADVISOR (pediatric) 06/29/2019 Z47.89 Encounter for other orthopedic MINGO Christian aftercare 06/29/2019 E87.1 Hypo-osmolality and hyponatremia KO Rascon 06/29/2019 I48.91 Unspecified atrial fibrillation KO Rascon 06/29/2019 I11.9 Hypertensive heart disease without KO Rascon heart failure 06/29/2019 J44.9 Chronic obstructive pulmonary KO Rascon disease, unspecified 06/28/2019 L03.116 Cellulitis of left lower limb MINGO Agarwal 06/28/2019 L03.116 Cellulitis of left lower limb Mookie Hill MD 06/28/2019 E11.621 Type 2 diabetes mellitus with foot Leola Doherty RPA-C ulcer 06/28/2019 E11.621 Type 2 diabetes mellitus with foot Mookie Hill MD ulcer 06/27/2019 Z47.89 Encounter for other orthopedic KO Smith aftercare 06/27/2019 E87.1 Hypo-osmolality and hyponatremia KO Rascon 06/27/2019 E11.9 Type 2 diabetes mellitus without KO Rascon complications 06/27/2019 E11.69 Type 2 diabetes mellitus with other Luh Encarnacion NP specified complication 06/27/2019 I48.91 Unspecified atrial fibrillation KO Rascon 06/27/2019 I11.9 Hypertensive heart disease without KO Rascon heart failure 06/27/2019 M86.672 Other chronic osteomyelitis, left Luh Encarnacion NP ankle and foot 06/27/2019 L03.116 Cellulitis of left lower limb Luh Encarnacion NP 06/27/2019 T81.41xD Infection following a procedure, Luh Encarnacion NP superficial incisional surgical site, subsequent encounter 06/26/2019 E87.1 Hypo-osmolality and hyponatremia KO Flores 06/26/2019 M86.672 Other chronic osteomyelitis, left Roosevelt Mccall M.D. ankle and foot 06/26/2019 I48.91 Unspecified atrial fibrillation KO Flores 06/26/2019 I10 Essential (primary) hypertension KO Flores 06/26/2019 E78.5 Hyperlipidemia, unspecified KO Flores 06/26/2019 J44.9 Chronic obstructive pulmonary KO Flores disease, unspecified 06/22/2019 I27.20 Pulmonary hypertension, unspecified Fan Hay M.D. , [facility], [facility] 06/22/2019 I48.2 Chronic atrial fibrillation Fan Hay M.D., [facility], [facility] 06/22/2019 R94.31 Abnormal electrocardiogram [ECG] Fan Hay M.D., [facility], [EKG] [facility] 06/19/2019 M86.9 Osteomyelitis, unspecified Roosevelt Mccall M.D. 06/18/2019 Z95.2 Presence of prosthetic heart valve Fan Hay M.D., [facility], [facility] 06/18/2019 Z95.2 Presence of prosthetic heart valve Ica ECHO Schedule 06/14/2019 M86.9 Osteomyelitis, unspecified Roosevelt Mccall M.D. 06/09/2019 M86.9 Osteomyelitis, unspecified Mariya Leatha Doto, HEALTH ADVISOR 06/09/2019 A41.81 Sepsis due to Enterococcus Mariya Leatha Doto, HEALTH ADVISOR 06/09/2019 E87.1 Hypo-osmolality and hyponatremia Mariya Leatha Doto, HEALTH ADVISOR 06/09/2019 E11.9 Type 2 diabetes mellitus without Mariya Leatha Doto, HEALTH ADVISOR complications 06/09/2019 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 Mariya Leatha Doto, HEALTH ADVISOR heart failure 06/09/2019 I50.9 Heart failure, unspecified Mariya Leatha Doto, HEALTH ADVISOR 06/09/2019 J44.9 Chronic obstructive pulmonary Mariya Leatha Doto, HEALTH ADVISOR disease, unspecified 06/09/2019 G47.33 Obstructive sleep apnea (adult) Mariya Leatha Doto, HEALTH ADVISOR (pediatric) 06/08/2019 Z98.890 Other specified postprocedural MINGO Christian states 06/08/2019 M86.9 Osteomyelitis, unspecified Holli Shortle, HEALTH ADVISOR 06/08/2019 B95.2 Enterococcus as the cause of Holli Shortle, HEALTH ADVISOR diseases classified elsewhere 06/08/2019 E87.1 Hypo-osmolality and hyponatremia Holli Shortle, HEALTH ADVISOR 06/08/2019 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 Holli Shortle, HEALTH ADVISOR heart failure 06/08/2019 I50.9 Heart failure, unspecified Holli Shortle, HEALTH ADVISOR 06/08/2019 E11.9 Type 2 diabetes mellitus without Holli Shortle, HEALTH ADVISOR complications 06/08/2019 I48.91 Unspecified atrial fibrillation Holli Shortle, HEALTH ADVISOR 06/08/2019 G47.33 Obstructive sleep apnea (adult) Holli Shortle, HEALTH ADVISOR (pediatric) 06/07/2019 Z98.890 Other specified postprocedural KO Smith states 06/07/2019 M86.9 Osteomyelitis, unspecified Holli Shortle, HEALTH ADVISOR 06/07/2019 B95.2 Enterococcus as the cause of Holli Shortle, HEALTH ADVISOR diseases classified elsewhere 06/07/2019 E87.1 Hypo-osmolality and hyponatremia Holli Shortle, HEALTH ADVISOR 06/07/2019 E11.9 Type 2 diabetes mellitus without Holli Shortle, HEALTH ADVISOR complications 06/07/2019 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 Holli Shortle, HEALTH ADVISOR heart failure 06/07/2019 I50.9 Heart failure, unspecified Holli Shortle, HEALTH ADVISOR 06/06/2019 E11.621 Type 2 diabetes mellitus with foot Luh Encarnacion, HEALTH ADVISOR ulcer 06/06/2019 B95.2 Enterococcus as the cause of Alysa Hurt PA diseases classified elsewhere 06/06/2019 M86.9 Osteomyelitis, unspecified Alysabeny Hurt, PA 06/06/2019 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 Encarnacion, HEALTH ADVISOR part of left foot with unspecified severity 06/06/2019 E11.621 Type 2 diabetes mellitus with foot Alysa Hurt, PA ulcer 06/06/2019 L03.116 Cellulitis of left lower limb Luh Encarnacion, HEALTH ADVISOR 06/06/2019 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 Alysabeny Doham, PA part of left foot with unspecified severity 06/06/2019 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 Alysabeny Doham, PA heart failure 06/06/2019 I50.9 Heart failure, unspecified Alysabeny Doham, PA 06/06/2019 I48.91 Unspecified atrial fibrillation Alysa Hurt PA 06/06/2019 G47.33 Obstructive sleep apnea (adult) Alysa Hurt PA (pediatric) 06/05/2019 M86.9 Osteomyelitis, unspecified Alysabeny Doham, PA 06/05/2019 E11.621 Type 2 diabetes mellitus with foot Alysa Hurt PA ulcer 06/05/2019 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 Alysa Hurt PA part of left foot with unspecified severity 06/05/2019 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 Alysa Hurt, PA heart failure 06/05/2019 I50.9 Heart failure, unspecified Alysa Hurt, PA 06/05/2019 I48.91 Unspecified atrial fibrillation Alysa Hurt, PA 06/05/2019 J44.9 Chronic obstructive pulmonary Alysabeny Doham, PA disease, unspecified 06/05/2019 G47.33 Obstructive sleep apnea (adult) Alysabeny Hurt, PA (pediatric) 06/04/2019 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 MINGO Michele part of left foot with unspecified severity 06/04/2019 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 Roosevelt Mccall M.D. part of left foot with unspecified severity 06/04/2019 L03.116 Cellulitis of left lower limb Scott Valdes RPA -[facility] 06/04/2019 L03.116 Cellulitis of left lower limb Alysabeny Doham, PA 06/04/2019 L03.116 Cellulitis of left lower limb Roosevelt Mccall M.D. 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 Alysa Hurt, PA part of left foot with unspecified severity 06/04/2019 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 Alysa Hurt, PA heart failure 06/04/2019 I50.9 Heart failure, unspecified Alysa Hurt, PA 06/04/2019 I48.91 Unspecified atrial fibrillation Alysabeny Doham, PA 06/04/2019 J44.9 Chronic obstructive pulmonary Alysa Doham, PA disease, unspecified 06/04/2019 G47.33 Obstructive sleep apnea (adult) Alysabeny Doham, PA (pediatric) 06/03/2019 L03.116 Cellulitis of left lower limb Alysa Hurt, PA 06/03/2019 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 Alysa Hurt, PA part of left foot with unspecified severity 06/03/2019 E11.621 Type 2 diabetes mellitus with foot Alysa Hurt, PA ulcer 06/03/2019 I50.9 Heart failure, unspecified Alysa Hurt, PA 06/03/2019 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 Alysa Hurt, PA heart failure 06/03/2019 I48.91 Unspecified atrial fibrillation KO Flores 06/03/2019 G47.33 Obstructive sleep apnea (adult) KO Flores (pediatric) 06/02/2019 L03.116 Cellulitis of left lower limb Holli Orozcole, HEALTH ADVISOR 06/02/2019 A41.9 Sepsis, unspecified organism Holli Shortle, HEALTH ADVISOR 06/02/2019 E11.621 Type 2 diabetes mellitus with foot Holli Shortle, HEALTH ADVISOR ulcer 06/02/2019 L97.528 Non-pressure chronic ulcer of other [facility] Short, HEALTH ADVISOR part of left foot with other specified severity Plan of Treatment Future Appointment(s):05/19/2020 9:00 am - Chiquita Mancilla MD [facility]12/06/2019 9:15 am - Roosevelt Mccall M.D. at [facility] at [id number]/19/2019 - Chiquita Mancilla MDJ44.9 Chronic obstructive pulmonary disease, unspecifiedFollow up:6 months , CXR [id number] Hypoxemia Functional Status Description No Information Available Mental Status Description No Information Available Referrals Description No Information Available
--- OUTSIDE RECORDS SUMMARY | 2019-12-20 10:47 | XMS REPORT | Continuity of Care Document ---
:1935 External Reference #:[id number] Author Name Roosevelt Mccall M.D. 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 Onset: 09/13/2018 extremities Heart failure, unspecified Fan Hay M.D., [facility], Onset: 03/20/2019 FASIA Pulmonary hypertension Fan Hay M.D., [facility], Onset: 06/22/2019 FASNC Chronic osteomyelitis of ankle Roosevelt Mccall M.D. Onset: 07/19/2019 and/or foot Type 2 diabetes mellitus Luh Encarnacion NP Onset: 07/25/2019 Social History Type Date Description Comments Sex Unknown Tobacco Use Start: Unknown Former Cigarette Smoker Smoked 5 per day for End: Unknown 2 years Smoking Status Reviewed: 10/23/19 Former Cigarette Smoker Smoked 5 per day [...] Medications SIG Qnty Indications Ordering Date Provider Atorvastatin Calcium 1 by mouth every Unknown [...] Tablets daily ( med change increase 02/27/19 [facility] discharge) Breo Ellipta Inhale One puff By [...] tablet on tue, Unknown 3mg Tablets wed, fri and 2 tablets tu, th, sat, sun as directed History Medications [...] Hay M.D., 03/24/2015 Tetrofosmin, Per Unit Dose DREAD AARON Up To 40 Millicuries Injection Immunizations Description No Information Available Vital Signs Date Vital Result Comment 10/23/2019 10:32am Height 69 inches 5'9" Weight 210.00 lb Stated Heart Rate 56 /min BP Systolic 118 mmHg BP Diastolic 62 mmHg Respiratory Rate 20 /min Body Temperature 97.2 F Pain Level 1 O2 % BldC Oximetry 94 % BMI (Body Mass Index) 31.0 kg/m2 10/04/2019 9:51am Height 69 inches 5'9" Weight 228.00 lb Heart Rate 54 /min Respiratory Rate 22 /min Body Temperature 98.3 F Pain Level 0 BMI (Body Mass Index) 33.7 kg/m2 Results Test Acquired Date Facility Test Result H/L Range Note Inr/Protime 07/06/2019 [facility] Inr 1.96 High 0.82-1.09 [address] [place] [address] [phone] Comp Metabolic 07/06/2019 [facility] Sodium 130 mmol/L Low 135 -145 Panel [address] [place] [address] [phone] Potassium 4.2 mmol/L Normal 3.5-5.0 Chloride 96 [...] Egfr 109.9 >60 2 Laboratory test 07/06/2019 [facility] C Reactive 1.93 mg/L Normal <8.01 [address] [place] [address] [phone] CBC Auto Diff 07/06/2019 [facility] White Blood 6.0 Normal 3.5 -10.[address] Count 10^3/[place] [address] [phone] Red Blood Count 3.68 10^6/uL Low 4.18-5.48 [...] Blood Cells % 0.1 Laboratory test 07/06/2019 [facility] Erythrocyte Sed 20 mm/Hr High 0-[address] [place] [address] [phone] Standard intensity warfarin therapeutic range: 2.0-3.0 [...] 5 Kidney failure <15 (or dialysis) 3 [id number] [facility] - Floor: , Rm #: [id number] Procedures Date Code Description Status 09/10/2019 23232 Diffusing Capacity Completed 09/10/2019 77245 Spirometry Incl Graphic Record Completed 06/28/2019 96666 Negative Pressure Wound Therapy Less Than 50 Square CM Completed 06/28/2019 91629 Negative Pressure Wound Therapy Less Than 50 Square CM Completed 06/28/2019 82508 I & D Foot Below Fascia, Single Bursal Space Completed 06/28/2019 78524 I & D Foot Below Fascia, Single Bursal Space Completed 06/22/2019 82861 EKG Tracing & Interpretation Completed 06/18/2019 18144 ECHO Transthoracic, Real-Time 2D With Doppler And Color Completed Flow 06/18/2019 86188 ECHO Transthoracic, Real-Time 2D With Doppler And Color Completed Flow 06/04/2019 65836 Osteotomy Metatarsal Other Than First Completed 06/04/2019 36743 Osteotomy Metatarsal Other Than First Completed Medical Devices Description No Information Available Encounters Type Date Location Provider Dx Diagnosis Office Visit 10/04/2019 [facility] Roosevelt Mccall, L97.529 [facility]- [facility] oth prt left foot w unsp severity Office Visit 07/25/2019 [facility] Luh Joseph M86.672 Other chronic 1:30p Infectious Encarnacion, [employer] osteomyelitis, Diseases left ankle and foot E11.69 Type 2 diabetes mellitus with other specified complication L97.529 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 w unsp severity E11.621 Type 2 diabetes mellitus with foot ulcer Office Visit 07/04/2019 [facility] E11.69 Type 2 diabetes 6:40a For Infectious Encarnacion, [employer] mellitus with Diseases other specified complication M86.672 Other chronic osteomyelitis, left ankle and foot L03.116 Cellulitis of left lower limb Office Visit 07/04/2019 9:55a [facility] E11.622 Type 2 Assoc, Leatha Sanjana, diabetes Hospitalists [employer] mellitus with other skin ulcer L97.329 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 I48.91 Unspecified atrial fibrillation J44.9 Chronic obstructive pulmonary disease, unspecified Office Visit 07/03/2019 9:54a [facility] E11.622 Type 2 Assoc, Leatha Sanjana, diabetes Hospitalists [employer] mellitus with other skin ulcer L97.329 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 I48.91 Unspecified atrial fibrillation J44.9 Chronic obstructive pulmonary disease, unspecified G47.33 Obstructive sleep apnea (adult) (pediatric) I10 Essential (primary) hypertension E78.5 Hyperlipidemia, unspecified Office Visit 07/02/2019 [facility] E11.69 Type 2 diabetes 6:38a For Infectious Encarnacion, [employer] mellitus with Diseases other specified complication M86.672 Other chronic osteomyelitis, left ankle and foot L03.116 Cellulitis of left lower limb Office Visit 07/02/2019 9:54a [facility] E11.622 Type 2 Assoc, Leatha Sanjana, diabetes Hospitalists [employer] mellitus with other skin ulcer L97.329 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 I48.91 Unspecified atrial fibrillation J44.9 Chronic obstructive pulmonary disease, unspecified G47.33 Obstructive sleep apnea (adult) (pediatric) I10 Essential (primary) hypertension Office Visit 07/01/2019 9:53a [facility] E11.622 Type 2 Assoc, Leatha Sanjana, diabetes Hospitalists [employer] mellitus with other skin ulcer L97.329 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 I48.91 Unspecified atrial fibrillation J44.9 Chronic obstructive pulmonary disease, unspecified G47.33 Obstructive sleep apnea (adult) (pediatric) [facility].329 Non-pressure 9:53a Assoc,yari Allan, chronic ulcer of Hospitalists [employer] left ankle with unsp severity E11.622 Type 2 diabetes mellitus with other skin ulcer I48.91 Unspecified atrial fibrillation J44.9 Chronic obstructive pulmonary disease, unspecified G47.33 Obstructive sleep apnea (adult) (pediatric) Office Visit 06/29/2019 [facility] E87.1 Hypo-osmolality and 9:52a Assoc,KO Tapia hyponatremia Hospitalists I48.91 Unspecified atrial fibrillation I11.9 Hypertensive heart disease without heart failure J44.9 Chronic obstructive pulmonary disease, unspecified Office Visit 06/27/2019 [facility] Luh Joseph E11.69 Type 2 diabetes 9:15a For Infectious Encarnacion, [employer] mellitus with Diseases other specified complication M86.672 Other chronic osteomyelitis, left ankle and foot L03.116 Cellulitis of left lower limb 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, superfic incisional surgical site, subs Office Visit 06/27/2019 [facility] [place] E87.1 Hypo-osmolality and 9:50a Assoc,KO Tapia hyponatremia Hospitalists E11.9 Type 2 diabetes mellitus without complications I48.91 Unspecified atrial fibrillation I11.9 Hypertensive heart disease without heart failure Office 06/26/2019 [facility] Alysa E87.1 Hypo-osmolality and Visit 5:28p Assocyari PA hyponatremia Hospitalists I48.91 Unspecified atrial fibrillation I10 Essential (primary) hypertension E78.5 Hyperlipidemia, unspecified J44.9 Chronic obstructive pulmonary disease, unspecified Office Visit 06/22/2019 1:30p [facility] Fan Rodney I27.20 Pulmonary Of Divya Hay M.D., hypertension, FACC, FASNC unspecified I48.2 Chronic atrial fibrillation R94.31 Abnormal electrocardiogram [ECG] [EKG] Office Visit 06/09/2019 [facility] Mariya M86.9 Osteomyelitis, 11:13a Assocyari, unspecified Hospitalists [employer] A41.81 Sepsis due to Enterococcus E87.1 Hypo-osmolality and hyponatremia E11.9 Type 2 diabetes mellitus without complications 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 I50.9 Heart failure, unspecified J44.9 Chronic obstructive pulmonary disease, unspecified G47.33 Obstructive sleep apnea (adult) (pediatric) Office Visit 06/08/2019 [facility] M86.9 Osteomyelitis, 11:12a yari Alonso NP unspecified Hospitalists B95.2 Enterococcus as the cause of diseases classified elsewhere E87.1 Hypo-osmolality and hyponatremia 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 I50.9 Heart failure, unspecified E11.9 Type 2 diabetes mellitus without complications I48.91 Unspecified atrial fibrillation G47.33 Obstructive sleep apnea (adult) (pediatric) Office Visit 06/07/2019 [facility] M86.9 Osteomyelitis, 11:12a yari Alonso [employer] unspecified Hospitalists B95.2 Enterococcus as the cause of diseases classified elsewhere E87.1 Hypo-osmolality and hyponatremia E11.9 Type 2 diabetes mellitus without complications 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 I50.9 Heart failure, unspecified [facility] E11.621 Type 2 For Infectious Encarnacion, [employer] diabetes Diseases mellitus with foot ulcer L97.529 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 w unsp severity L03.116 Cellulitis of left lower limb Office Visit 06/06/2019 [facility] B95.2 Enterococcus as 11:12a yari Alonso PA the cause of Hospitalists diseases classified elsewhere M86.9 Osteomyelitis, unspecified E11.621 Type 2 diabetes mellitus with foot ulcer L97.529 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 w unsp severity 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 I50.9 Heart failure, unspecified I48.91 Unspecified atrial fibrillation G47.33 Obstructive sleep apnea (adult) (pediatric) Office Visit 06/05/2019 [facility] M86.9 Osteomyelitis, 11:11a Assyari witt PA unspecified Hospitalists E11.621 Type 2 diabetes mellitus with foot ulcer L97.529 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 w unsp severity 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 I50.9 Heart failure, unspecified I48.91 Unspecified atrial fibrillation J44.9 Chronic obstructive pulmonary disease, unspecified G47.33 Obstructive sleep apnea (adult) (pediatric) Office Visit 06/04/2019 [facility] L03.116 Cellulitis of 11:11a Assoc,KO Mcgowan left lower limb Hospitalists E11.621 Type 2 diabetes mellitus with foot ulcer L97.529 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 w unsp severity 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 I50.9 Heart failure, unspecified I48.91 Unspecified atrial fibrillation J44.9 Chronic obstructive pulmonary disease, unspecified G47.33 Obstructive sleep apnea (adult) (pediatric) Office Visit 06/03/2019 [facility] L03.116 Cellulitis of 11:10a Assoc,KO Mcgowan left lower limb Hospitalists L97.529 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 w unsp severity E11.621 Type 2 diabetes mellitus with foot ulcer I50.9 Heart failure, unspecified 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 I48.91 Unspecified atrial fibrillation G47.33 Obstructive sleep apnea (adult) (pediatric) Office Visit 06/02/2019 [facility] L03.116 Cellulitis of 11:10a Assocyari NP left lower limb Hospitalists A41.9 Sepsis, unspecified organism E11.621 Type 2 diabetes mellitus with foot ulcer L97.528 Non-prs chronic ulcer oth prt left foot with oth severity Assessments Date Code Description Provider 10/23/2019 L97.529 Non-pressure chronic ulcer of garima Mccall M.D. part of left foot with unspecified severity 10/04/2019 L97.529 Non-pressure chronic ulcer of garima Mccall M.D. part of left foot with unspecified severity 09/20/2019 L97.529 Non-pressure chronic ulcer of garima Mccall M.D. part of left foot with [...] Non-pressure chronic ulcer of left Mariya Allan NP ankle with unspecified severity 07/04/2019 M86.672 Other chronic osteomyelitis, left Luh Encarnacion NP ankle and foot 07/04/2019 I48.91 Unspecified atrial fibrillation Mariya Allan NP 07/04/2019 L03.116 Cellulitis of left lower limb Luh Encarnacion NP 07/04/2019 J44.9 Chronic obstructive pulmonary Mariya Leatha Doto, [employer] disease, unspecified 07/03/2019 Z47.89 Encounter for other orthopedic KO Smith aftercare 07/03/2019 E11.622 Type 2 diabetes mellitus with other Mariya Allan , [employer] skin ulcer 07/03/2019 L97.329 Non-pressure chronic ulcer of left Mariya Allan , [employer] ankle with unspecified severity 07/03/2019 I48.91 Unspecified atrial fibrillation Mariya Zhang Doto, [employer] 07/03/2019 J44.9 Chronic obstructive pulmonary Mariya Zhang Dotti, [employer] disease, unspecified 07/03/2019 G47.33 Obstructive sleep apnea (adult) Mariya Zhang Doto, [employer] (pediatric) 07/03/2019 I10 Essential (primary) hypertension Mariya Zhang Doto, [employer] 07/03/2019 E78.5 Hyperlipidemia, unspecified Mariya Zhang Doto, [employer] 07/02/2019 Z47.89 Encounter for other orthopedic KO Haley aftercare 07/02/2019 E11.622 Type 2 diabetes mellitus with other Mariya Allan , [employer] skin ulcer 07/02/2019 E11.69 Type 2 diabetes mellitus with other Luh Encarnacion, [employer] specified complication 07/02/2019 L97.329 Non-pressure chronic ulcer of left Mariya Allan , [employer] ankle with unspecified severity 07/02/2019 M86.672 Other chronic osteomyelitis, left Luh Encarnacion, [employer] ankle and foot 07/02/2019 I48.91 Unspecified atrial fibrillation Mariya Zhang Doto, [employer] 07/02/2019 L03.116 Cellulitis of left lower limb Luh Encarnacion, [employer] 07/02/2019 J44.9 Chronic obstructive pulmonary Mariya Allan, [employer] disease, unspecified 07/02/2019 G47.33 Obstructive sleep apnea (adult) Mariya Zhang Doto, [employer] (pediatric) 07/02/2019 I10 Essential (primary) hypertension Mariya Zhang Doto, [employer] 07/01/2019 E11.622 Type 2 diabetes mellitus with other Mariya Zhang Dotti , [employer] skin ulcer 07/01/2019 Z47.89 Encounter for other orthopedic MINGO Valentin aftercare 07/01/2019 L97.329 Non-pressure chronic ulcer of left Mariya Allan , [employer] ankle with unspecified severity 07/01/2019 I48.91 Unspecified atrial fibrillation Mariya Allan, [employer] 07/01/2019 J44.9 Chronic obstructive pulmonary Mariya Allan, [employer] disease, unspecified 07/01/2019 G47.33 Obstructive sleep apnea (adult) Mariya Zhang Sanjana [employer] (pediatric) 06/30/2019 L97.528 Non-pressure chronic ulcer of other Mookie Hill MD part of left foot with other specified severity 06/30/2019 L97.329 Non-pressure chronic ulcer of left Mariya Allan , [employer] ankle with unspecified severity 06/30/2019 E11.622 Type 2 diabetes mellitus with other Mariya Allan , [employer] skin ulcer 06/30/2019 I48.91 Unspecified atrial fibrillation Mariya Allan, [employer] 06/30/2019 J44.9 Chronic obstructive pulmonary Mariya Allan, [employer] disease, unspecified 06/30/2019 G47.33 Obstructive sleep apnea (adult) Mariay Zhang MARCI Allan (pediatric) 06/29/2019 Z47.89 Encounter for other orthopedic [...] E11.621 Type 2 diabetes mellitus with foot MINGO Agarwal ulcer 06/28/2019 E11.621 Type 2 diabetes mellitus with foot Mookie Hill MD ulcer 06/27/2019 Z47.89 Encounter for other orthopedic KO Smiht aftercare 06/27/2019 E87.1 Hypo-osmolality and hyponatremia KO [...] subsequent encounter 06/26/2019 E87.1 Hypo-osmolality and hyponatremia OK Flores 06/26/2019 M86.672 Other chronic osteomyelitis, left Roosevelt Mccall M.D. ankle and foot 06/26/2019 I48.91 Unspecified atrial fibrillation KO Flores 06/26/2019 I10 Essential (primary) hypertension KO Flores 06/26/2019 E78.5 Hyperlipidemia, unspecified KO Flores 06/26/2019 J44.9 Chronic obstructive pulmonary KO Flores disease, unspecified 06/22/2019 I27.20 Pulmonary hypertension, unspecified Fan Hay M.D. , [facility], [facility] 06/22/2019 I48.2 Chronic atrial fibrillation Fan Hay M.D., [facility], [facility] 06/22/2019 R94.31 Abnormal electrocardiogram [ECG] Fan Hay M.D., [facility], [EKG] [facility] 06/19/2019 M86.9 Osteomyelitis, unspecified Roosevelt Mccall M.D. 06/18/2019 Z95.2 Presence of prosthetic heart valve Fan Hay M.D., [facility], [facility] 06/18/2019 Z95.2 Presence of prosthetic heart valve Ica ECHO Schedule 06/14/2019 M86.9 Osteomyelitis, unspecified Roosevelt Mccall M.D. 06/09/2019 M86.9 Osteomyelitis, unspecified Mariya Allan NP 06/09/2019 A41.81 Sepsis due to Enterococcus Mariya Zhang Doto, [employer] 06/09/2019 E87.1 Hypo-osmolality and hyponatremia Mariya Zhang Doto, [employer] 06/09/2019 E11.9 Type 2 diabetes mellitus without Mariya Leatha Doto, [employer] complications 06/09/2019 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 Mariya Leatha Doto, [employer] heart failure 06/09/2019 I50.9 Heart failure, unspecified Mariya Leatha Doto, [employer] 06/09/2019 J44.9 Chronic obstructive pulmonary Mariyaedgar Zhang Doto, [employer] disease, unspecified 06/09/2019 G47.33 Obstructive sleep apnea (adult) Mariya Zhang Doto, [employer] (pediatric) 06/08/2019 Z98.890 Other specified postprocedural IMNGO Christian states 06/08/2019 M86.9 Osteomyelitis, unspecified Holli Shortle, [employer] 06/08/2019 B95.2 Enterococcus as the cause of Holli Shortle, [employer] diseases classified elsewhere 06/08/2019 E87.1 Hypo-osmolality and hyponatremia Holli Shortle, [employer] 06/08/2019 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 Holli Shortle, [employer] heart failure 06/08/2019 I50.9 Heart failure, unspecified Holli Shortle, [employer] 06/08/2019 E11.9 Type 2 diabetes mellitus without Holli Shortle, [employer] complications 06/08/2019 I48.91 Unspecified atrial fibrillation Holli Shortle, [employer] 06/08/2019 G47.33 Obstructive sleep apnea (adult) Holli Shortle, [employer] (pediatric) 06/07/2019 Z98.890 Other specified postprocedural KO Smith states 06/07/2019 M86.9 Osteomyelitis, unspecified Holli Shortle, [employer] 06/07/2019 B95.2 Enterococcus as the cause of Holli Shortle, [employer] diseases classified elsewhere 06/07/2019 E87.1 Hypo-osmolality and hyponatremia Holli Shortle, [employer] 06/07/2019 E11.9 Type 2 diabetes mellitus without Holli Shortle, [employer] complications 06/07/2019 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 Holli Shortle, [employer] heart failure 06/07/2019 I50.9 Heart failure, unspecified Holli Mendez, [employer] 06/06/2019 E11.621 Type 2 diabetes mellitus with foot Luh Encarnacion, [employer] ulcer 06/06/2019 B95.2 Enterococcus as the cause of Alysabeny Hurt, PA diseases classified elsewhere 06/06/2019 M86.9 Osteomyelitis, unspecified Alysabeny Doham, PA 06/06/2019 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 Joseph Encarnacion, [employer] part of left foot with unspecified severity 06/06/2019 E11.621 Type 2 diabetes mellitus with foot Alysa Hurt, PA ulcer 06/06/2019 L03.116 Cellulitis of left lower limb Luh Encarnacion, [employer] 06/06/2019 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 Alysa Hurt, PA part of left foot with unspecified severity 06/06/2019 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 Alysa Doham, PA heart failure 06/06/2019 I50.9 Heart failure, unspecified Alysa Hurt, PA 06/06/2019 I48.91 Unspecified atrial fibrillation Alysabeny Doham, PA 06/06/2019 G47.33 Obstructive sleep apnea (adult) Alysa Hurt PA (pediatric) 06/05/2019 M86.9 Osteomyelitis, unspecified Alysa Hurt, PA 06/05/2019 E11.621 Type 2 diabetes mellitus with foot Alysa Hurt, PA ulcer 06/05/2019 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 Alysa Doham, PA part of left foot with unspecified severity 06/05/2019 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 Alysabeny Doham, PA heart failure 06/05/2019 I50.9 Heart failure, unspecified Alysa Hurt, PA 06/05/2019 I48.91 Unspecified atrial fibrillation Alysabeny Doham, PA 06/05/2019 J44.9 Chronic obstructive pulmonary Alysa Hurt, PA disease, unspecified 06/05/2019 G47.33 Obstructive sleep apnea (adult) Alysa Hurt PA (pediatric) 06/04/2019 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 Scott Valdes, [facility] part of left foot with unspecified severity 06/04/2019 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 Roosevelt Mccall M.D. part of left foot with unspecified severity 06/04/2019 L03.116 Cellulitis of left lower limb Scott FernandezNegrita Valdes RPA -C 06/04/2019 L03.116 Cellulitis of left lower limb Alysabeny Hurt, PA 06/04/2019 L03.116 Cellulitis of left lower limb Roosevelt Mccall M.D. 06/04/2019 E11.621 Type 2 diabetes mellitus with foot Alysabeny Hurt, PA ulcer 06/04/2019 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 Alysa Hurt, PA part of left foot with unspecified severity 06/04/2019 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 Alysa Hurt, PA heart failure 06/04/2019 I50.9 Heart failure, unspecified Alysa Hurt, PA 06/04/2019 I48.91 Unspecified atrial fibrillation Alysa Hurt, PA 06/04/2019 J44.9 Chronic obstructive pulmonary Alysa Hurt, PA disease, unspecified 06/04/2019 G47.33 Obstructive sleep apnea (adult) Alysa Hurt, PA (pediatric) 06/03/2019 L03.116 Cellulitis of left [...] heart failure 06/03/2019 I48.91 Unspecified atrial fibrillation Alysa Hurt, PA 06/03/2019 G47.33 Obstructive sleep apnea (adult) Alysa Hurt, PA (pediatric) 06/02/2019 L03.116 Cellulitis of left lower limb Holli Mendez, [employer] 06/02/2019 A41.9 Sepsis, unspecified organism Holli Mendez, [employer] 06/02/2019 E11.621 Type 2 diabetes mellitus with foot Holli Shortle, [employer] ulcer 06/02/2019 L97.528 Non-pressure chronic ulcer of other [facility] Shortle, [employer] part of left foot with other specified severity Plan of Treatment Future Appointment(s):11/15/2019 9:30 am - Roosevelt Mccall M.D. at [facility]11/19/2019 9:15 am - Chiquita Mancilla MD at [facility]10/23/2019 - Roosevelt Mccall M.D.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 part of left foot with unspecified severityFollow up:3 weeks Functional Status Description No Information Available Mental Status Description No Information Available Referrals Description No Information Available
--- OUTSIDE RECORDS SUMMARY | 2019-12-20 10:47 | XMS REPORT | Continuity of Care Document ---
:1935 External Reference #:[id number] Author Name Roosevelt Mccall M.D. 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, Onset: 04/02/2014 FASSD Chronic atrial fibrillation Fan Hay M.D., [facility], Onset: 04/16/2016 FASSD Aortic valve disorder Fan Hay M.D., [facility], Onset: 05/12/2018 FASSD Type 2 diabetes mellitus with ulcer Mookie Hill MD Onset: 06/12/2018 Cellulitis of left lower limb Mookie Hill MD Onset: 06/12/2018 Atherosclerosis of arteries of the Tru Nomi Hancock M.D. Onset: 09/13/2018 extremities Heart failure, unspecified Fan Hay M.D., [facility], Onset: 03/20/2019 FASSD Pulmonary hypertension Fan Hay M.D., [facility], Onset: 06/22/2019 FASNC Chronic osteomyelitis of ankle [...] Tablets daily ( med change increase [place]27/[place] [facility] [place] Breo Ellipta Inhale One puff By Unknown Mouth Every Day 200-25mcg/Inh Aerosol Rinse Mouth After Glucosamine 2 daily Unknown 500mg Tablets Acetaminophen Takes 1 or 2 tabs Unknown 500mg by mouth as needed Tablets Multivitamins daily Unknown Vitamin C 1 by mouth every Unknown 500mg day Capsules Losartan Potassium 1 tablet daily 90tabs Unknown 100mg Tablets Coumadin 1 tablet on mon, Unknown 3mg Tablets wed, tue and 2 [...] Available Vital Signs Date Vital Result Comment 11/15/2019 9:40am Height 69 inches 5'9" Weight 215.00 lb Heart Rate 61 /min BP Systolic 120 mmHg BP Diastolic 68 mmHg Respiratory Rate 16 /min Pain Level 0 BMI (Body Mass Index) 31.7 kg/m2 10/23/2019 10:32am Height 69 inches 5'9" Weight 210.00 lb Stated Heart Rate 56 /min BP Systolic 118 mmHg BP Diastolic 62 mmHg Respiratory Rate 20 /min Body Temperature 97.2 F Pain Level 1 O2 % BldC Oximetry 94 % BMI (Body Mass Index) 31.0 kg/m2 Results Test Acquired Date Facility Test Result H/L Range Note Inr/Protime 07/06/2019 [facility] Inr 1.96 High 0.82-1.09 1 [address] [place] [address] [phone] Comp Metabolic 07/06/2019 [facility] Sodium 130 mmol/L Low 135 -145 Panel [address] [place] [address] [phone] Potassium 4.2 mmol/L Normal 3.5-5.0 Chloride 96 [...] Egfr 109.9 >60 2 Laboratory test 07/06/2019 [facility] C Reactive 1.93 mg/L Normal <8.01 [address] [place] [address] [phone] CBC Auto Diff 07/06/2019 [facility] White Blood 6.0 Normal 3.5 -10.[address] Count 10^3/[place] [address] [phone] Red Blood Count 3.68 10^6/uL Low 4.18-5.48 [...] Blood Cells % 0.1 Laboratory test 07/06/2019 [facility] Erythrocyte Sed 20 mm/Hr High 0-[address] [place] [address] [phone] 1 Standard intensity warfarin therapeutic range: 2.0-3.0 [...] 5 Kidney failure <15 (or dialysis) 3 [id number] [facility] - Floor: , #: [id number] Procedures Date Code Description Status 09/10/2019 76489 Diffusing Capacity Completed 09/10/2019 39813 Spirometry Incl Graphic Record Completed 06/28/2019 51758 Negative Pressure Wound Therapy Less Than 50 Square CM Completed 06/28/2019 67760 Negative Pressure Wound Therapy Less Than 50 Square CM Completed 06/28/2019 34518 I & D Foot Below Fascia, Single Bursal Space Completed 06/28/2019 87850 I & D Foot Below Fascia, Single Bursal Space Completed 06/22/2019 02475 EKG Tracing & Interpretation Completed 06/18/2019 94646 ECHO Transthoracic, Real-Time 2D With Doppler And Color Completed Flow 06/18/2019 97527 ECHO Transthoracic, Real-Time 2D With Doppler And Color Completed Flow 06/04/2019 11712 Osteotomy Metatarsal Other Than First Completed 06/04/2019 02843 Osteotomy Metatarsal Other Than First Completed Medical Devices Description No Information Available Encounters Type Date Location Provider Dx Diagnosis [facility] L97.529 [facility] w unsp severity Office [facility] 10/[facility]2019 [facility] L97.529 [facility] foot w unsp severity Office Visit 07/25/2019 [facility] Luh Joseph M86.672 Other chronic 1:30p Infectious Alysha, [employer] osteomyelitis, Diseases left ankle and foot E11.69 Type 2 diabetes mellitus with other specified complication L97.529 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 w unsp severity E11.621 Type 2 diabetes mellitus with foot ulcer Office Visit 07/04/2019 [facility] E11.69 Type 2 diabetes 6:40a For Infectious Alysha, [employer] mellitus with Diseases other specified complication M86.672 Other chronic osteomyelitis, left ankle and foot L03.116 Cellulitis of left lower limb Office Visit 07/04/2019 9:55a [facility] E11.622 Type 2 Assoc, Leatha Allan, diabetes Hospitalists CRE[employer]OSS mellitus with other skin ulcer L97.329 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 I48.91 Unspecified atrial fibrillation J44.9 Chronic obstructive pulmonary disease, unspecified Office Visit 07/03/2019 9:54a [facility] E11.622 Type 2 Assoc, Leatha Allan, diabetes Hospitalists [employer] mellitus with other skin ulcer L97.329 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 I48.91 Unspecified atrial fibrillation J44.9 Chronic obstructive pulmonary disease, unspecified G47.33 Obstructive sleep apnea (adult) (pediatric) I10 Essential (primary) hypertension E78.5 Hyperlipidemia, unspecified Office Visit 07/02/2019 [facility] E11.69 Type 2 diabetes 6:38a For Infectious Alysha, [employer] mellitus with Diseases other specified complication M86.672 Other chronic osteomyelitis, left ankle and foot L03.116 Cellulitis of left lower limb Office Visit 07/02/2019 9:54a [facility] E11.622 Type 2 Assoc, Leatha Sanjana, diabetes Hospitalists [employer] mellitus with other skin ulcer L97.329 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 I48.91 Unspecified atrial fibrillation J44.9 Chronic obstructive pulmonary disease, unspecified G47.33 Obstructive sleep apnea (adult) (pediatric) I10 Essential (primary) hypertension Office Visit 07/01/2019 9:53a [facility] E11.622 Type 2 Assoc, Leatha Allan, diabetes Hospitalists [employer] mellitus with other skin ulcer L97.329 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 I48.91 Unspecified atrial fibrillation J44.9 Chronic obstructive pulmonary disease, unspecified G47.33 Obstructive sleep apnea (adult) (pediatric) [facility] L97.329 Non-pressure 9:53a Assoc,pc Leatha Autumnti, chronic ulcer of Hospitalists [employer]OSS left ankle with unsp severity E11.622 Type 2 diabetes mellitus with other skin ulcer I48.91 Unspecified atrial fibrillation J44.9 Chronic obstructive pulmonary disease, unspecified G47.33 Obstructive sleep apnea (adult) (pediatric) Office Visit 06/29/2019 [facility] Kemal E87.1 Hypo-osmolality and 9:52a Assoc,KO Tapia hyponatremia Hospitalists I48.91 Unspecified atrial fibrillation I11.9 Hypertensive heart disease without heart failure J44.9 Chronic obstructive pulmonary disease, unspecified Office Visit 06/27/2019 [facility] Luh Joseph E11.69 Type 2 diabetes 9:15a For Infectious Encarnacion, CRE[employer] BOSS mellitus with Diseases other specified complication M86.672 Other chronic osteomyelitis, left ankle and foot L03.116 Cellulitis of left lower limb 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, superfic incisional surgical site, subs Office Visit 06/27/2019 [facility] E87.1 Hypo-osmolality and 9:50a Assoc,KO Tapia hyponatremia Hospitalists E11.9 Type 2 diabetes mellitus without complications I48.91 Unspecified atrial fibrillation I11.9 Hypertensive heart disease without heart failure Office 06/26/2019 [facility] Alysa E87.1 Hypo-osmolality and Visit 5:28p Assoc,KO Mcgowan hyponatremia Hospitalists I48.91 Unspecified atrial fibrillation I10 Essential (primary) hypertension E78.5 Hyperlipidemia, unspecified J44.9 Chronic obstructive pulmonary disease, unspecified Office Visit 06/22/2019 1:30p [facility] Fan Stevens I27.20 Pulmonary Of Divya Hay M.D., hypertension, FACC, FASNC unspecified I48.2 Chronic atrial fibrillation R94.31 Abnormal electrocardiogram [ECG] [EKG] [facility] M[facility] Osteomyelitis, 11:13a Assoc,pc Leatha Doto, unspecified Hospitalists [employer] A41.81 Sepsis due to Enterococcus E87.1 Hypo-osmolality and hyponatremia E11.9 Type 2 diabetes mellitus without complications 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 I50.9 Heart failure, unspecified J44.9 Chronic obstructive pulmonary disease, unspecified G47.33 Obstructive sleep apnea (adult) (pediatric) Office Visit 06/08/2019 [facility] M86.9 Osteomyelitis, 11:12a yari Alonso [employer] unspecified Hospitalists B95.2 Enterococcus as the cause of diseases classified elsewhere E87.1 Hypo-osmolality and hyponatremia 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 I50.9 Heart failure, unspecified E11.9 Type 2 diabetes mellitus without complications I48.91 Unspecified atrial fibrillation G47.33 Obstructive sleep apnea (adult) (pediatric) Office Visit 06/07/2019 [facility] M86.9 Osteomyelitis, 11:12a yari Alonso [employer] unspecified Hospitalists B95.2 Enterococcus as the cause of diseases classified elsewhere E87.1 Hypo-osmolality and hyponatremia E11.9 Type 2 diabetes mellitus without complications 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 I50.9 Heart failure, unspecified I48.91 Unspecified atrial fibrillation G47.33 Obstructive sleep apnea (adult) (pediatric) Office Visit 06/05/2019 [facility] M86.9 Osteomyelitis, 11:11a yari Alonso PA unspecified Hospitalists E11.621 Type 2 diabetes mellitus with foot ulcer L97.529 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 w unsp severity 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 I50.9 Heart failure, unspecified I48.91 Unspecified atrial fibrillation J44.9 Chronic obstructive pulmonary disease, unspecified G47.33 Obstructive sleep apnea (adult) (pediatric) Office Visit 06/04/2019 [facility] L03.116 Cellulitis of 11:11a Assocyari PA left lower limb Hospitalists E11.621 Type 2 diabetes mellitus with foot ulcer L97.529 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 w unsp severity 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 I50.9 Heart failure, unspecified I48.91 Unspecified atrial fibrillation J44.9 Chronic obstructive pulmonary disease, unspecified G47.33 Obstructive sleep apnea (adult) (pediatric) Office Visit 06/03/2019 [facility] L03.116 Cellulitis of 11:10a Assocyari PA left lower limb Hospitalists L97.529 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 w unsp severity E11.621 Type 2 diabetes mellitus with foot ulcer I50.9 Heart failure, unspecified 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 I48.91 Unspecified atrial fibrillation G47.33 Obstructive sleep apnea (adult) (pediatric) Office Visit 06/02/2019 [facility] L03.116 Cellulitis of 11:10a Assocyari NP left lower limb Hospitalists A41.9 Sepsis, unspecified organism E11.621 Type 2 diabetes mellitus with foot ulcer L97.528 Non-prs chronic ulcer oth prt left foot with oth severity Assessments Date Code Description Provider 10/23/2019 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 [...] and foot 09/10/2019 J44.9 Chronic obstructive pulmonary Chiquitaclint Mancilla MD disease, unspecified 09/05/2019 M86.672 Other [...] 08/02/2019 E11.69 Type 2 diabetes mellitus with garima Mccall M.D. specified complication 07/25/2019 M86.672 Other [...] 07/04/2019 I48.91 Unspecified atrial fibrillation Mariya Allan, [employer] 07/04/2019 L03.116 Cellulitis of left lower limb Luh Encarnacion, [employer] 07/04/2019 J44.9 Chronic obstructive pulmonary Mariya Allan, [employer] disease, unspecified 07/03/2019 Z47.89 Encounter for other orthopedic KO Smith aftercare 07/03/2019 E11.622 Type 2 diabetes mellitus with other Mariya Allan , [employer] skin ulcer 07/03/2019 L97.329 Non-pressure chronic ulcer of left Mariya Allan , [employer] ankle with unspecified severity 07/03/2019 I48.91 Unspecified atrial fibrillation Mariya Allan, [employer] 07/03/2019 J44.9 Chronic obstructive pulmonary Mariya Allan, [employer] disease, unspecified 07/03/2019 G47.33 Obstructive sleep apnea (adult) Mariya Zhang Sanjana, [employer] (pediatric) 07/03/2019 I10 Essential (primary) hypertension Mariya Allan, [employer] 07/03/2019 E78.5 Hyperlipidemia, unspecified Mariya Zhang Doto, [employer] 07/02/2019 Z47.89 Encounter for other orthopedic KO Haley aftercare 07/02/2019 E11.622 Type 2 diabetes mellitus with other Mariya Allan , [employer] skin ulcer 07/02/2019 E11.69 Type 2 diabetes mellitus with other Luh Encarnacion, [employer] specified complication 07/02/2019 L97.329 Non-pressure chronic ulcer of left Mariya Allan , [employer] ankle with unspecified severity 07/02/2019 M86.672 Other chronic osteomyelitis, left Luh Encarnacion, [employer] ankle and foot 07/02/2019 I48.91 Unspecified atrial fibrillation Mariya Leyvati, [employer] 07/02/2019 L03.116 Cellulitis of left lower limb Luh Encarnacion, [employer] 07/02/2019 J44.9 Chronic obstructive pulmonary Mariya Zhang Dotti, [employer] disease, unspecified 07/02/2019 G47.33 Obstructive sleep apnea (adult) Mariya Zhang Doto, [employer] (pediatric) 07/02/2019 I10 Essential (primary) hypertension Mariya Allan, [employer] 07/01/2019 E11.622 Type 2 diabetes mellitus with other Mariya Allan , [employer] skin ulcer 07/01/2019 Z47.89 Encounter for other orthopedic MINGO Valentin aftercare 07/01/2019 L97.329 Non-pressure chronic ulcer of left Mariya Allan , [employer] ankle with unspecified severity 07/01/2019 I48.91 Unspecified atrial fibrillation Mariya Allan, [employer] 07/01/2019 J44.9 Chronic obstructive pulmonary Mariya Allan, [employer] disease, unspecified 07/01/2019 G47.33 Obstructive sleep apnea (adult) Mariya Allan, [employer] (pediatric) 06/30/2019 L97.528 Non-pressure chronic ulcer of other Mookie Hill MD part of left foot with other specified severity 06/30/2019 L97.329 Non-pressure chronic ulcer of left Mariya Allan , [employer] ankle with unspecified severity 06/30/2019 E11.622 Type 2 diabetes mellitus with other Mariya Allan , [employer] skin ulcer 06/30/2019 I48.91 Unspecified atrial fibrillation Mariya Allan, [employer] 06/30/2019 J44.9 Chronic obstructive pulmonary Mariya Allan, [employer] disease, unspecified 06/30/2019 G47.33 Obstructive sleep apnea (adult) Mariya Leyvati, [employer] (pediatric) 06/29/2019 Z47.89 Encounter for other orthopedic [...] Flores 06/26/2019 I10 Essential (primary) hypertension KO Folres 06/26/2019 E78.5 Hyperlipidemia, unspecified KO Flores 06/26/2019 J44.9 Chronic obstructive pulmonary KO Flores disease, unspecified 06/22/2019 I27.20 Pulmonary hypertension, unspecified Fan Hay M.D. , [facility] 06/22/2019 I48.2 Chronic atrial fibrillation Fan Hay M.D., [facility], [facility] 06/22/2019 R94.31 Abnormal electrocardiogram [ECG] Fan Hay M.D., [facility], [EKG] [facility] 06/19/2019 M86.9 Osteomyelitis, unspecified Roosevelt Mccall M.D. 06/18/2019 Z95.2 Presence of prosthetic heart valve Fan Hay M.D., [facility], [facility] 06/18/2019 Z95.2 Presence of prosthetic heart valve Ica ECHO Schedule 06/14/2019 M86.9 Osteomyelitis, unspecified Roosevelt Mccall M.D. 06/09/2019 M86.9 Osteomyelitis, unspecified Mariya Leatha Doto, [employer] 06/09/2019 A41.81 Sepsis due to Enterococcus Mariya Leatha Doto, [employer] 06/09/2019 E87.1 Hypo-osmolality and hyponatremia Mariya Leatha Doto, [employer] 06/09/2019 E11.9 Type 2 diabetes mellitus without Mariya Leatha Doto, [employer] complications 06/09/2019 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 Mariya Leatha Doto, [employer] heart failure 06/09/2019 I50.9 Heart failure, unspecified Mariya Leatha Doto, [employer] 06/09/2019 J44.9 Chronic obstructive pulmonary Mariya Leatha Doto, [employer] disease, unspecified 06/09/2019 G47.33 Obstructive sleep apnea (adult) Mariya Leatha Doto, [employer] (pediatric) 06/08/2019 Z98.890 Other specified postprocedural MINGO Christian states 06/08/2019 M86.9 Osteomyelitis, unspecified Holli Shortle, CRE[employer] BOSS 06/08/2019 B95.2 Enterococcus as the cause of Holli Shortle, [employer] diseases classified elsewhere 06/08/2019 E87.1 Hypo-osmolality and hyponatremia Holli Shortle, CRE[employer] 06/08/2019 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 Holli Shortle, [employer] heart failure 06/08/2019 I50.9 Heart failure, unspecified Holli Shortle, [employer] 06/08/2019 E11.9 Type 2 diabetes mellitus without Holli Shortle, [employer] complications 06/08/2019 I48.91 Unspecified atrial fibrillation Holli Shortle, [employer] 06/08/2019 G47.33 Obstructive sleep apnea (adult) Holli Shortle, [employer] (pediatric) 06/07/2019 Z98.890 Other specified postprocedural KO Smith states 06/07/2019 M86.9 Osteomyelitis, unspecified Holli Shortle, [employer] 06/07/2019 B95.2 Enterococcus as the cause of Holli Shortle, [employer] diseases classified elsewhere 06/07/2019 E87.1 Hypo-osmolality and hyponatremia Holligigi Mendez, CRE[employer] BOSS 06/07/2019 E11.9 Type 2 diabetes mellitus without Holli Mendez, [employer] complications 06/07/2019 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 Holli Andrea, [employer] heart failure 06/07/2019 I50.9 Heart failure, unspecified Holli Mendez, [employer] 06/06/2019 E11.621 Type 2 diabetes mellitus with foot Luh Encarnacion, [employer] ulcer 06/06/2019 B95.2 Enterococcus as the cause of Alysabeny Doham, PA diseases classified elsewhere 06/06/2019 M86.9 Osteomyelitis, unspecified Alysa Hurt, PA 06/06/2019 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 Encarnacion, [employer] part of left foot with unspecified severity 06/06/2019 E11.621 Type 2 diabetes mellitus with foot Alysa Hurt, PA ulcer 06/06/2019 L03.116 Cellulitis of left lower limb Luh Encarnacion, [employer] 06/06/2019 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 Alysa Hurt, PA part of left foot with unspecified severity 06/06/2019 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 Alysa Hurt, PA heart failure 06/06/2019 I50.9 Heart failure, unspecified Alysa Hurt, PA 06/06/2019 I48.91 Unspecified atrial fibrillation Alysa Hurt, PA 06/06/2019 G47.33 Obstructive sleep apnea (adult) [...] PA 06/05/2019 I48.91 Unspecified atrial fibrillation Alysa Hurt PA 06/05/2019 J44.9 Chronic obstructive pulmonary Alysabeny Hurt PA disease, unspecified 06/05/2019 G47.33 Obstructive sleep apnea (adult) Alysa Hurt PA (pediatric) 06/04/2019 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 Scott Valdes RPA-C part of left foot with unspecified severity 06/04/2019 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 Roosevelt Mccall M.D. part of left foot with unspecified severity 06/04/2019 L03.116 Cellulitis of left lower limb Scott Valdes RPA -C 06/04/2019 L03.116 Cellulitis of left lower limb Alysa Hurt, PA 06/04/2019 L03.116 Cellulitis of left lower limb Roosevelt Mccall M.D. 06/04/2019 E11.621 Type 2 diabetes mellitus with foot Alysabeny Hurt, PA ulcer 06/04/2019 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 Alysabeny Doham, PA part of left foot with unspecified severity 06/04/2019 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 Alysabeny Doham, PA heart failure 06/04/2019 I50.9 Heart failure, unspecified Alysa Hurt, PA 06/04/2019 I48.91 Unspecified atrial fibrillation Alysabeny Doham, PA 06/04/2019 J44.9 Chronic obstructive pulmonary Alysa Hurt, PA disease, unspecified 06/04/2019 G47.33 Obstructive sleep apnea (adult) Alysa Hurt PA (pediatric) 06/03/2019 L03.116 Cellulitis of left [...] heart failure 06/03/2019 I48.91 Unspecified atrial fibrillation Alysabeny Doham, PA 06/03/2019 G47.33 Obstructive sleep apnea (adult) KO Flores (pediatric) 06/02/2019 L03.116 Cellulitis of left lower limb Holligigi Mendez, [employer] 06/02/2019 A41.9 Sepsis, unspecified organism Holligigi Mendez, [employer] 06/02/2019 E11.621 Type 2 diabetes mellitus with foot Holli Mendez, [employer] ulcer 06/02/2019 L97.528 Non-pressure chronic ulcer of other Holli Pamadam, [employer] part of left foot with other specified severity Plan of Treatment Future Appointment(s):12/06/2019 9:15 am - Roosevelt Mccall M.D. at [facility] Functional Status Description No Information Available Mental Status Description No Information Available Referrals Description No Information Available
--- OUTSIDE RECORDS SUMMARY | 2019-12-20 10:47 | XMS REPORT | Continuity of Care Document ---
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 Onset: 09/13/2018 extremities Heart failure, unspecified Fan Hay M.D., [facility], Onset: 03/20/2019 FASNC Pulmonary hypertension Fan Hay M.D., [facility], Onset: 06/22/2019 FASNC Chronic osteomyelitis of ankle Roosevelt Mccall M.D. Onset: 07/19/2019 and/or foot Type 2 diabetes mellitus Luh Encarnacion NP Onset: 07/25/2019 Social History Type Date Description Comments Sex Unknown Tobacco Use Start: Unknown Former Cigarette Smoker Smoked 5 per day for End: Unknown 2 years Smoking Status Reviewed: 12/14/19 Former Cigarette Smoker Smoked 5 per day [...] Medications SIG Qnty Indications Ordering Date Provider Bactrim DS 1 by mouth twice a 30tabs Mookie Liz, 12/14/2019 800-160mg day MD Tablets Magox 400 take one half Unknown 400(241.3mg) [...] by mouth every Unknown 5000Unit day Capsules Furosemide 1 by mouth twice Unknown 20mg [...] Cefep[facility] HCL [facility] x 10 days MARCI Encarnacion 07/18/2019 1gm Solution Rec Cefepime 2 GM IV x 1 on [facility] 07/05/2019 - 07/04/19 MARCI Encarnacion 07/18/2019 Knee Scooter Disp 1 knee 1units M86.9 Roosevelt Mccall M.D. 06/14/2019 - scooter 09/04/2019 Medications Administered in Office Medication SIG Qnty Indications Ordering Provider Date Inj, Regadenoson, 0.1 MG Fan Hay M.D., 03/24/2015 Injection DREAD AARON Technetium TC 99M Fan Hay M.D., 03/24/2015 Tetrofosmin, Per Unit Dose FACC, FASMARTIN Up To 40 Millicuries Injection Immunizations Description No Information Available Vital Signs Date Vital Result Comment 12/14/2019 3:37pm Height 69 inches Weight 236.00 lb Heart Rate 66 /min BP Systolic 142 mmHg BP Diastolic 78 mmHg Respiratory Rate 12 /min Body Temperature 97.3 F Pain Level 2 BMI (Body Mass Index) 34.8 kg/m2 12/06/2019 9:21am Height 69 inches 5'9" Heart Rate 80 /min BP Systolic 136 mmHg BP Diastolic 80 mmHg Respiratory Rate 16 /min Body Temperature 97.9 F Pain Level 0 Results Test Acquired Date Facility Test Result H/L Range Note Inr/Protime 07/06/2019 [facility] Inr 1.96 High 0.82-1.09 1 [address] [place] [address] [phone] Comp Metabolic 07/06/2019 [facility] Sodium 130 mmol/L Low 135 -145 Panel [address] [place] [address] [phone] Potassium 4.2 mmol/L Normal 3.5-5.0 Chloride 96 [...] Egfr 109.9 >60 2 Laboratory test 07/06/2019 [facility] C Reactive 1.93 mg/L Normal <8.01 [address] [place] [address] [phone] CBC Auto Diff 07/06/2019 [facility] White Blood 6.0 Normal 3.5 -10.[address] Count 10^3/[place] [address] [phone] Red Blood Count 3.68 10^6/uL Low 4.18-5.48 [...] Blood Cells % 0.1 Laboratory test 07/06/2019 [facility] Erythrocyte Sed 20 mm/Hr High 0-[address] [place] [address] [phone] 1 Standard intensity warfarin therapeutic range: 2.0-3.0 [...] 5 Kidney failure <15 (or dialysis) 3 [id number] [facility] - Floor: , #: [id number] Procedures Date Code Description Status 09/10/2019 36886 Diffusing Capacity Completed 09/10/2019 85021 Spirometry Incl Graphic Record Completed 06/28/2019 10157 Negative Pressure Wound Therapy Less Than 50 Square CM Completed 06/28/2019 43599 Negative Pressure Wound Therapy Less Than 50 Square CM Completed 06/28/2019 54758 I & D Foot Below Fascia, Single Bursal Space Completed 06/28/2019 71226 I & D Foot Below Fascia, Single Bursal Space Completed 06/22/2019 44325 EKG Tracing & Interpretation Completed 06/18/2019 99621 ECHO Transthoracic, Real-Time 2D With Doppler And Color Completed Flow 06/18/2019 02193 ECHO Transthoracic, Real-Time 2D With Doppler And Color Completed Flow Medical Devices Description No Information Available Encounters Type Date Location Provider Dx Diagnosis Office Visit 11/19/2019 [facility] And Chiquita Mancilla J44.9 Chronic obstructive 9:15a Sleep Services Of pulmonary disease, 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 E11.621 Type 2 diabetes mellitus with foot ulcer Office Visit 07/04/2019 [facility] Luh Jake E11.69 Type 2 diabetes 6:40a For Infectious Alysha, [employer] mellitus with Diseases other specified complication M86.672 Other chronic osteomyelitis, left ankle and foot L03.116 Cellulitis of left lower limb Office Visit 07/04/2019 9:55a [facility] E11.622 Type 2 Assoc, Leatha Allan, diabetes Hospitalists [employer] mellitus with other skin ulcer L97.329 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 I48.91 Unspecified atrial fibrillation J44.9 Chronic obstructive pulmonary disease, unspecified Office Visit 07/03/2019 9:54a [facility] E11.622 Type 2 Assoc, Leatha Allan, diabetes Hospitalists [employer] mellitus with other skin ulcer L97.329 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 I48.91 Unspecified atrial fibrillation J44.9 Chronic obstructive pulmonary disease, unspecified G47.33 Obstructive sleep apnea (adult) (pediatric) I10 Essential (primary) hypertension E78.5 Hyperlipidemia, unspecified [facility]69 Type 2 diabetes 6:38a For Infectious Alysha, [employer] mellitus with Diseases other specified complication M86.672 Other chronic osteomyelitis, left ankle and foot L03.116 Cellulitis of left lower limb Office Visit 07/02/2019 9:54a [facility] E11.622 Type 2 Assoc, Leatha Sanjana, diabetes Hospitalists [employer] mellitus with other skin ulcer L97.329 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 I48.91 Unspecified atrial fibrillation J44.9 Chronic obstructive pulmonary disease, unspecified G47.33 Obstructive sleep apnea (adult) (pediatric) I10 Essential (primary) hypertension Office Visit 07/01/2019 9:53a [facility] E11.622 Type 2 Assoc,[facility] Sanjana, diabetes Hospitalists [employer] mellitus with other skin ulcer L97.329 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 I48.91 Unspecified atrial fibrillation J44.9 Chronic obstructive pulmonary disease, unspecified G47.33 Obstructive sleep apnea (adult) (pediatric) Office Visit 06/30/2019 [facility] L97.329 Non-pressure 9:53a Assoc,[facility] Sanjana, chronic ulcer of Hospitalists [employer] left ankle with unsp severity E11.622 Type 2 diabetes mellitus with other skin ulcer I48.91 Unspecified atrial fibrillation J44.9 Chronic obstructive pulmonary disease, unspecified G47.33 Obstructive sleep apnea (adult) (pediatric) Office Visit 06/29/2019 [facility] Kemal E87.1 Hypo-osmolality and 9:52a Assocyari PA hyponatremia Hospitalists I48.91 Unspecified atrial fibrillation I11.9 Hypertensive heart disease without heart failure J44.9 Chronic obstructive pulmonary disease, unspecified Office Visit 06/27/2019 [facility] Luh Mariscalheathjeremy E11.69 Type 2 diabetes 9:15a For Infectious Encarnacion, [employer] mellitus with Diseases other specified complication M86.672 Other chronic osteomyelitis, left ankle and foot L03.116 Cellulitis of left lower limb 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, superfic incisional surgical site, subs Office Visit 06/27/2019 [facility] Kemal E87.1 Hypo-osmolality and 9:50a Assocyari PA hyponatremia Hospitalists E11.9 Type 2 diabetes mellitus without complications I48.91 Unspecified atrial fibrillation I11.9 Hypertensive heart disease without heart failure Office 06/26/2019 [facility] Alysa E87.1 Hypo-osmolality and Visit 5:28p Assocyari PA hyponatremia Hospitalists I48.91 Unspecified atrial fibrillation I10 Essential (primary) hypertension E78.5 Hyperlipidemia, unspecified J44.9 Chronic obstructive pulmonary disease, unspecified Office Visit 06/22/2019 1:30p [facility] Fan Stevens I27.20 Pulmonary Of 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 ankle and foot 11/19/2019 J44.9 Chronic obstructive pulmonary Chiquita Mancilla MD disease, unspecified 11/19/2019 R09.02 Hypoxemia Chiquita Mancilla MD 11/15/2019 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 Roosevelt Mccall M.D. part of left foot with unspecified severity 10/23/2019 L97.529 Non-pressure chronic ulcer of garima Mccall M.D. part of left foot with unspecified severity 10/04/2019 L97.529 Non-pressure chronic ulcer of garima Mccall M.D. part of left foot with unspecified severity 09/20/2019 L97.529 Non-pressure chronic ulcer of gairma Mccall M.D. part of left foot with unspecified severity 09/20/2019 M86.672 Other chronic osteomyelitis, left Roosevelt Mccall M.D. ankle and foot 09/10/2019 J44.9 Chronic obstructive pulmonary Chiquita Mancilla MD disease, unspecified 09/05/2019 M86.672 Other chronic osteomyelitis, left Roosevelt Mccall M.D. ankle and foot 09/05/2019 L97.529 Non-pressure chronic ulcer of garima Mccall [...] 2 diabetes mellitus with other Luh Encarnacion, [employer] specified complication 07/25/2019 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 Encarnacion, [employer] part of left foot with unspecified severity 07/25/2019 E11.621 Type 2 diabetes mellitus with foot Luh Encarnacion, [employer] ulcer 07/19/2019 M86.672 Other chronic osteomyelitis, left Roosevelt Mccall M.D. ankle and foot 07/10/2019 M86.672 Other chronic osteomyelitis, left Roosevelt Mccall M.D. ankle and foot 07/04/2019 Z47.89 Encounter for other orthopedic KO Smith aftercare 07/04/2019 E11.622 Type 2 diabetes mellitus with other Mariya Allan MARCI skin ulcer 07/04/2019 E11.69 Type 2 diabetes mellitus with other Luh Encarnacion, [employer] specified complication 07/04/2019 L97.329 Non-pressure chronic ulcer of left Mariya Alaln , [employer] ankle with unspecified severity 07/04/2019 M86.672 Other chronic osteomyelitis, left Luh Encarnacion, [employer] ankle and foot 07/04/2019 I48.91 Unspecified atrial fibrillation Mariya Everettfield Sanjana NP 07/04/2019 L03.116 Cellulitis of left lower limb Luh Encarnacion, [employer] 07/04/2019 J44.9 Chronic obstructive pulmonary Mariya Zhang MARCI Allan disease, unspecified 07/03/2019 Z47.89 Encounter for other orthopedic KO Smith aftercare 07/03/2019 E11.622 Type 2 diabetes mellitus with other Mariya Allan [employer] skin ulcer 07/03/2019 L97.329 Non-pressure chronic ulcer of left Mariya Allan , [employer] ankle with unspecified severity 07/03/2019 I48.91 Unspecified atrial fibrillation Mariya Everettfield Allan, [employer] 07/03/2019 J44.9 Chronic obstructive pulmonary Mariya Everettfield Allan, [employer] disease, unspecified 07/03/2019 G47.33 Obstructive sleep apnea (adult) Mariya Allan NP (pediatric) 07/03/2019 I10 Essential (primary) hypertension Mariya Zhang Doto, [employer] 07/03/2019 E78.5 Hyperlipidemia, unspecified Mariya Leatha Doto, [employer] 07/02/2019 Z47.89 Encounter for other orthopedic KO Haley aftercare 07/02/2019 E11.622 Type 2 diabetes mellitus with other Mariya Allan , [employer] skin ulcer 07/02/2019 E11.69 Type 2 diabetes mellitus with other Luh EncarnacionMARCI specified complication 07/02/2019 L97.329 Non-pressure chronic ulcer of left Mariya Allan , [employer] ankle with unspecified severity 07/02/2019 M86.672 Other chronic osteomyelitis, left Luh Encarnacion, [employer] ankle and foot 07/02/2019 I48.91 Unspecified atrial fibrillation Mariya Leyvao, [employer] 07/02/2019 L03.116 Cellulitis of left lower limb Luh Joseph Encarnacion, MARCI 07/02/2019 J44.9 Chronic obstructive pulmonary Mariya Zhang Doto, [employer] disease, unspecified 07/02/2019 G47.33 Obstructive sleep apnea (adult) Mariya Zhang Doto, [employer] (pediatric) 07/02/2019 I10 Essential (primary) hypertension Mariya Zhang Doto, [employer] 07/01/2019 E11.622 Type 2 diabetes mellitus with other Mariya Allan , [employer] skin ulcer 07/01/2019 Z47.89 Encounter for other orthopedic MINGO Valentin aftercare 07/01/2019 L97.329 Non-pressure chronic ulcer of left Mariya Allan , [employer] ankle with unspecified severity 07/01/2019 I48.91 Unspecified atrial fibrillation Mariya Zhang Doto, [employer] 07/01/2019 J44.9 Chronic obstructive pulmonary Mariya Zhang Doto, [employer] disease, unspecified 07/01/2019 G47.33 Obstructive sleep apnea (adult) Mariya Zhang Doto, [employer] (pediatric) 06/30/2019 L97.528 Non-pressure chronic ulcer of other Mookie Hill MD part of left foot with other specified severity 06/30/2019 L97.329 Non-pressure chronic ulcer of left Mariya Leatha Doto , [employer] ankle with unspecified severity 06/30/2019 E11.622 Type 2 diabetes mellitus with other Mariya Allan NP skin ulcer 06/30/2019 I48.91 Unspecified atrial fibrillation Mariya Allan NP 06/30/2019 J44.9 Chronic obstructive pulmonary Mariya Allan NP disease, unspecified 06/30/2019 G47.33 Obstructive sleep apnea (adult) Mariya Allan NP (pediatric) 06/29/2019 Z47.89 Encounter for other orthopedic [...] Smith aftercare 06/27/2019 E87.1 Hypo-osmolality and hyponatremia [place] 06/27/2019 E11.9 Type 2 diabetes mellitus [...] Pulmonary hypertension, unspecified Fan Hay M.D. , [facility], [facility] 06/22/2019 I48.2 Chronic atrial fibrillation Fan Hay M.D., [facility], [facility] 06/22/2019 R94.31 Abnormal electrocardiogram [ECG] Fan Hay M.D., [facility], [EKG] [facility] 06/19/2019 M86.9 Osteomyelitis, unspecified Roosevelt Mccall M.D. 06/18/2019 Z95.2 Presence of prosthetic heart valve Fan Hya M.D., [facility], [facility] 06/18/2019 Z95.2 Presence of prosthetic heart valve [facility] ECHO Schedule 06/14/2019 M86.9 Osteomyelitis, unspecified Roosevelt Mccall M.D. Plan of Treatment Future Appointment(s):01/08/2020 8:45 am - Roosevelt Mccall M.D. at [facility]/19/2020 9:00 am - Chiquita Mancilla MD at [facility]12/14/2019 - Mookie Hill, MDM86.672 Other chronic osteomyelitis, left ankle and footFollow up:[address] Mccall Functional Status Description No Information Available Mental Status Description No Information Available Referrals Description No Information Available
--- OUTSIDE RECORDS SUMMARY | 2019-12-20 10:47 | XMS REPORT | Continuity of Care Document ---
:1935 External Reference #:[id number] Author Name Roosevelt Mccall M.D. 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 Onset: 09/13/2018 extremities Heart failure, unspecified Fan Hay M.D., [facility], Onset: 03/20/2019 FASWY Pulmonary hypertension Fan Hay M.D., [facility], Onset: 06/22/2019 FASNC Chronic osteomyelitis of ankle Roosevelt Mccall M.D. Onset: 07/19/2019 and/or foot Type 2 diabetes mellitus Luh Encarnacion NP Onset: 07/25/2019 Social History Type Date Description Comments Sex Unknown Tobacco Use Start: Unknown Former Cigarette Smoker Smoked 5 per day for End: Unknown 2 years Smoking Status Reviewed: 12/06/19 Former Cigarette Smoker Smoked 5 per day [...] Tablets daily ( med change increase 02/27/19 [facility] discharge) Breo Ellipta Inhale One puff By [...] Available Vital Signs Date Vital Result Comment 12/06/2019 9:21am Height 69 inches 5'9" Heart Rate 80 /min BP Systolic 136 mmHg BP Diastolic 80 mmHg Respiratory Rate 16 /min Body Temperature 97.9 F Pain Level 0 11/19/2019 8:44am Height 69 inches 5'9" Weight 224.00 lb Heart Rate 61 /min BP Systolic Sitting 130 mmHg BP Diastolic Sitting 60 mmHg O2 % BldC Oximetry 92 % BMI (Body Mass Index) 33.1 kg/m2 Results Test Acquired Date Facility Test Result H/L Range Note Inr/Protime 07/06/2019 [facility] Inr 1.96 High 0.82-1.09 1 [address] [place] [address] [phone] Comp Metabolic 07/06/2019 [facility] Sodium 130 mmol/L Low 135 -145 Panel [address] [place] [address] [phone] Potassium 4.2 mmol/L Normal 3.5-5.0 Chloride 96 [...] Egfr 109.9 >60 2 Laboratory test 07/06/2019 [facility] C Reactive 1.93 mg/L Normal <8.01 [address] [place] [address] [phone] CBC Auto Diff 07/06/2019 [facility] White Blood 6.0 Normal 3.5 -10.[address] Count 10^3/[place] [address] [phone] Red Blood Count 3.68 10^6/uL Low 4.18-5.48 [...] Blood Cells % 0.1 Laboratory test 07/06/2019 [facility] Erythrocyte Sed 20 mm/Hr High 0-[address] [place] [address] [phone] 1 Standard intensity warfarin therapeutic range: 2.0-3.0 [...] 5 Kidney failure <15 (or dialysis) 3 [id number] [facility] [place] - Floor: , Rm #: [id number] Procedures Date Code Description Status 09/10/2019 65291 Diffusing Capacity Completed 09/10/2019 48119 Spirometry Incl Graphic Record Completed 06/28/2019 53406 Negative Pressure Wound Therapy Less Than 50 Square CM Completed 06/28/2019 70866 Negative Pressure Wound Therapy Less Than 50 Square CM Completed 06/28/2019 95448 I & D Foot Below Fascia, Single Bursal Space Completed 06/28/2019 74174 I & D Foot Below Fascia, Single Bursal Space Completed 06/22/2019 68225 EKG Tracing & Interpretation Completed 06/18/2019 46295 ECHO Transthoracic, Real-Time 2D With Doppler And Color Completed Flow 06/18/2019 34922 ECHO Transthoracic, Real-Time 2D With Doppler And Color Completed Flow Medical Devices Description No Information Available Encounters Type Date Location Provider Dx Diagnosis Office Visit 11/19/2019 [facility] Mancilla J44.9 Chronic obstructive 9:15a Sleep Services Of pulmonary disease, 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 R09.02 Hypoxemia Office Visit 10/23/2019 Laurie Mccall L97.529 Non-pressure 10:00a [facility] Office Visit 10/04/2019 Laurie Mccall L97.529 Non-pressure 9:45a [facility] w [facility]sp severity Office Visit 07/25/2019 [facility] Luh Joseph M86.672 Other chronic 1:30p For Infectious Encarnacion, DESIGN INTERN osteomyelitis, Diseases left ankle and foot E11.69 Type 2 diabetes mellitus with other specified complication L97.529 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 w unsp severity E11.621 Type 2 diabetes mellitus with foot ulcer Office Visit 07/04/2019 [facility] E11.69 Type 2 diabetes 6:40a For Infectious Alysha, DESIGN INTERN mellitus with Diseases other specified complication M86.672 Other chronic osteomyelitis, left ankle and foot L03.116 Cellulitis of left lower limb Office Visit 07/04/2019 9:55a [facility] E11.622 Type 2 Assoc, Leatha Sanjana, diabetes Hospitalists DESIGN INTERN mellitus with other skin ulcer L97.329 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 I48.91 Unspecified atrial fibrillation J44.9 Chronic obstructive pulmonary disease, unspecified Office Visit 07/03/2019 9:54a [facility] E11.622 Type 2 Assoc, Leatha Allan, diabetes Hospitalists DESIGN INTERN mellitus with other skin ulcer L97.329 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 I48.91 Unspecified atrial fibrillation J44.9 Chronic obstructive pulmonary disease, unspecified G47.33 Obstructive sleep apnea (adult) (pediatric) I10 Essential (primary) hypertension E78.5 Hyperlipidemia, unspecified Office Visit 07/02/2019 9:54a [facility] E11.622 Type 2 Assoc, Leatha Allan, diabetes Hospitalists DESIGN INTERN mellitus with other skin ulcer L97.329 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 I48.91 Unspecified atrial fibrillation J44.9 Chronic obstructive pulmonary disease, unspecified G47.33 Obstructive sleep apnea (adult) (pediatric) I10 Essential (primary) hypertension Office Visit 07/02/2019 [facility] E11.69 Type 2 diabetes 6:38a For Infectious Alysha, DESIGN INTERN mellitus with Diseases other specified complication M86.672 Other chronic osteomyelitis, left ankle and foot L03.116 Cellulitis of left lower limb Office Visit 07/01/2019 9:53a [facility] E11.622 Type 2 Assoc, Leatha Sanjana, diabetes Hospitalists DESIGN INTERN mellitus with other skin ulcer L97.329 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 I48.91 Unspecified atrial fibrillation J44.9 Chronic obstructive pulmonary disease, unspecified G47.33 Obstructive sleep apnea (adult) (pediatric) [facility] L97.329 Non-pressure 9:53a Assocy[facility], chronic ulcer of Hospitalists DESIGN INTERN left ankle with unsp severity E11.622 Type 2 diabetes mellitus with other skin ulcer I48.91 Unspecified atrial fibrillation J44.9 Chronic obstructive pulmonary disease, unspecified G47.33 Obstructive sleep apnea (adult) (pediatric) Office Visit 06/29/2019 [facility] Kemal E87.1 Hypo-osmolality and 9:52a Assoc,KO Tapia hyponatremia Hospitalists I48.91 Unspecified atrial fibrillation I11.9 Hypertensive heart disease without heart failure J44.9 Chronic obstructive pulmonary disease, unspecified Office Visit 06/27/2019 [facility] Luh Joseph E11.69 Type 2 diabetes 9:15a For Infectious Encarnacion, DESIGN INTERN mellitus with Diseases other specified complication M86.672 Other chronic osteomyelitis, left ankle and foot L03.116 Cellulitis of left lower limb 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, superfic incisional surgical site, subs Office Visit 06/27/2019 [facility] Kemal E87.1 Hypo-osmolality and 9:50a Assocyari PA hyponatremia Hospitalists E11.9 Type 2 diabetes mellitus without complications I48.91 Unspecified atrial fibrillation I11.9 Hypertensive heart disease without heart failure Office 06/26/2019 [facility] Alysa E87.1 Hypo-osmolality and Visit 5:28p Assocyari PA hyponatremia Hospitalists I48.91 Unspecified atrial fibrillation I10 Essential (primary) hypertension E78.5 Hyperlipidemia, unspecified J44.9 Chronic obstructive pulmonary disease, unspecified Office Visit 06/22/2019 1:30p [facility] Fan Rodney I27.20 Pulmonary Of Divya Hay M.D., hypertension, FACC, FASNC unspecified I48.2 Chronic atrial fibrillation R94.31 Abnormal electrocardiogram [ECG] [EKG] Office Visit 06/09[facility] M86.9 Osteomyelitis, 11:13a Assocyari, unspecified Hospitalists DESIGN INTERN A41.81 Sepsis due to Enterococcus E87.1 Hypo-osmolality and hyponatremia E11.9 Type 2 diabetes mellitus without complications 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 I50.9 Heart failure, unspecified J44.9 Chronic obstructive pulmonary disease, unspecified G47.33 Obstructive sleep apnea (adult) (pediatric) Office Visit 06/08/2019 [facility] M86.9 Osteomyelitis, 11:12a yari Alonso NP unspecified Hospitalists B95.2 Enterococcus as the cause of diseases classified elsewhere E87.1 Hypo-osmolality and hyponatremia 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 I50.9 Heart failure, unspecified E11.9 Type 2 diabetes mellitus without complications I48.91 Unspecified atrial fibrillation G47.33 Obstructive sleep apnea (adult) (pediatric) Office Visit 06/07/2019 [facility] M86.9 Osteomyelitis, 11:12a yari Alonso NP unspecified Hospitalists B95.2 Enterococcus as the cause of diseases classified elsewhere E87.1 Hypo-osmolality and hyponatremia E11.9 Type 2 diabetes mellitus without complications 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 I50.9 Heart failure, unspecified Office Visit 06/06/2019 10:19a [facility] Luh Jake E11.621 Type 2 For Infectious Encarnacion, DESIGN INTERN diabetes Diseases mellitus with foot ulcer L97.529 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 w unsp severity L03.116 Cellulitis of left lower limb Office Visit 06/06/2019 [facility] B95.2 Enterococcus as 11:12a yari Alonso PA the cause of Hospitalists diseases classified elsewhere M86.9 Osteomyelitis, unspecified E11.621 Type 2 diabetes mellitus with foot ulcer L97.529 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 w unsp severity 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 I50.9 Heart failure, unspecified I48.91 Unspecified atrial fibrillation G47.33 Obstructive sleep apnea (adult) (pediatric) Assessments Date Code Description Provider 12/06/2019 M86.672 Other chronic osteomyelitis, left Roosevelt [...] Type 2 diabetes mellitus with other Mariya Leyvati DESIGN INTERN skin ulcer 07/04/2019 E11.69 Type 2 diabetes mellitus with other Luhdonal Encarnacion NP specified complication 07/04/2019 L97.329 Non-pressure chronic ulcer of left Mariya Allan , DESIGN INTERN ankle with unspecified severity 07/04/2019 M86.672 Other chronic osteomyelitis, left Luh Jospeh Encarnacion, DESIGN INTERN ankle and foot 07/04/2019 I48.91 Unspecified atrial fibrillation Mariya Leyvati, DESIGN INTERN 07/04/2019 L03.116 Cellulitis of left lower limb Luh Lebronfidel Encarnacion, MARCI 07/04/2019 J44.9 Chronic obstructive pulmonary Mariya Zhang Sanjana, DESIGN INTERN disease, unspecified 07/03/2019 Z47.89 Encounter for other orthopedic KO Smith aftercare 07/03/2019 E11.622 Type 2 diabetes mellitus with other Mariya Leyvati , DESIGN INTERN skin ulcer 07/03/2019 L97.329 Non-pressure chronic ulcer of left Mariya Allan , DESIGN INTERN ankle with unspecified severity 07/03/2019 I48.91 Unspecified atrial fibrillation Mariya Zhang Sanjana, DESIGN INTERN 07/03/2019 J44.9 Chronic obstructive pulmonary Mariya Zhang Sanjana, DESIGN INTERN disease, unspecified 07/03/2019 G47.33 Obstructive sleep apnea (adult) Mariyaibeth Allan, DESIGN INTERN (pediatric) 07/03/2019 I10 Essential (primary) hypertension Mariya [place]rett[place] Allan, DESIGN INTERN 07/03/2019 E78.5 Hyperlipidemia, unspecified Mariya [place]rett[place] Dotti, DESIGN INTERN 07/02/2019 Z47.89 Encounter for other orthopedic KO Haley aftercare 07/02/2019 E11.622 Type 2 diabetes mellitus with other Mariya Zhang Sanjana , DESIGN INTERN skin ulcer 07/02/2019 E11.69 Type 2 diabetes mellitus with other Luhdonal Encarnacion, DESIGN INTERN specified complication 07/02/2019 L97.329 Non-pressure chronic ulcer of left Mariya Allan , DESIGN INTERN ankle with unspecified severity 07/02/2019 M86.672 Other chronic osteomyelitis, left Luh Encarnacion, DESIGN INTERN ankle and foot 07/02/2019 I48.91 Unspecified atrial fibrillation Mariya Allan, DESIGN INTERN 07/02/2019 L03.116 Cellulitis of left lower limb Luh Encarnacion, DESIGN INTERN 07/02/2019 J44.9 Chronic obstructive pulmonary Mariya Allan, DESIGN INTERN disease, unspecified 07/02/2019 G47.33 Obstructive sleep apnea (adult) Mariya Allan, DESIGN INTERN (pediatric) 07/02/2019 I10 Essential (primary) hypertension Mariya Allan, DESIGN INTERN 07/01/2019 E11.622 Type 2 diabetes mellitus with other Mariya Allan , DESIGN INTERN skin ulcer 07/01/2019 Z47.89 Encounter for other orthopedic Christelle Spann RPA-C aftercare 07/01/2019 L97.329 Non-pressure chronic ulcer of left Mariya Allan , DESIGN INTERN ankle with unspecified severity 07/01/2019 I48.91 Unspecified atrial fibrillation Mariya Allan, DESIGN INTERN 07/01/2019 J44.9 Chronic obstructive pulmonary Mariya Allan, DESIGN INTERN disease, unspecified 07/01/2019 G47.33 Obstructive sleep apnea (adult) Mariya Allan, DESIGN INTERN (pediatric) 06/30/2019 L97.528 Non-pressure chronic ulcer of other Mookie Hill MD part of left foot with other specified severity 06/30/2019 L97.329 Non-pressure chronic ulcer of left Mariya Allan , DESIGN INTERN ankle with unspecified severity 06/30/2019 E11.622 Type 2 diabetes mellitus with other Mariya Allan , DESIGN INTERN skin ulcer 06/30/2019 I48.91 Unspecified atrial fibrillation Mariya Allan, DESIGN INTERN 06/30/2019 J44.9 Chronic obstructive pulmonary Mariya Zhang Dotti, DESIGN INTERN disease, unspecified 06/30/2019 G47.33 Obstructive sleep apnea (adult) Mariya Zhang Doto, DESIGN INTERN (pediatric) 06/29/2019 Z47.89 Encounter for other orthopedic Marcia Wu RPA-C aftercare 06/29/2019 E87.1 Hypo-osmolality and hyponatremia KO [...] Pulmonary hypertension, unspecified Fan Hay M.D. , [facility] 06/22/2019 I48.2 Chronic atrial fibrillation Fan Hay M.D., [facility] 06/22/2019 R94.31 Abnormal electrocardiogram [ECG] Fan Hay M.D., [facility], [EKG] [facility] 06/19/2019 M86.9 Osteomyelitis, unspecified Roosevelt Mccall M.D. 06/18/2019 Z95.2 Presence of prosthetic heart valve Fan Hay M.D., [facility] 06/18/2019 Z95.2 Presence of prosthetic heart valve Ica ECHO Schedule 06/14/2019 M86.9 Osteomyelitis, unspecified Roosevelt Mccall M.D. 06/09/2019 M86.9 Osteomyelitis, unspecified Mariya Leatha Doto, DESIGN INTERN 06/09/2019 A41.81 Sepsis due to Enterococcus Mariya Allan, DESIGN INTERN 06/09/2019 E87.1 Hypo-osmolality and hyponatremia Mariya Leatha Doto, DESIGN INTERN 06/09/2019 E11.9 Type 2 diabetes mellitus without Mariya Leatha Doto, DESIGN INTERN complications 06/09/2019 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 Mariya Leatha Doto, DESIGN INTERN heart failure 06/09/2019 I50.9 Heart failure, unspecified Mariya Leatha Doto, DESIGN INTERN 06/09/2019 J44.9 Chronic obstructive pulmonary Mariya Allan, DESIGN INTERN disease, unspecified 06/09/2019 G47.33 Obstructive sleep apnea (adult) Mariya Leatha Doto, DESIGN INTERN (pediatric) 06/08/2019 Z98.890 Other specified postprocedural Marcia Wu RPA-C states 06/08/2019 M86.9 Osteomyelitis, unspecified Holli Shortle, DESIGN INTERN 06/08/2019 B95.2 Enterococcus as the cause of Holli Shortle, DESIGN INTERN diseases classified elsewhere 06/08/2019 E87.1 Hypo-osmolality and hyponatremia Holli Shortle, DESIGN INTERN 06/08/2019 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 Holli Shortle, DESIGN INTERN heart failure 06/08/2019 I50.9 Heart failure, unspecified Holli Shortle, DESIGN INTERN 06/08/2019 E11.9 Type 2 diabetes mellitus without Holli Shortle, DESIGN INTERN complications 06/08/2019 I48.91 Unspecified atrial fibrillation Holli Shortle, DESIGN INTERN 06/08/2019 G47.33 Obstructive sleep apnea (adult) Holli Shortle, MARCI (pediatric) 06/07/2019 Z98.890 Other specified postprocedural KO Smith states 06/07/2019 M86.9 Osteomyelitis, unspecified Holli Shortle, DESIGN INTERN 06/07/2019 B95.2 Enterococcus as the cause of Holli Shortle, DESIGN INTERN diseases classified elsewhere 06/07/2019 E87.1 Hypo-osmolality and hyponatremia Holli Shortle, DESIGN INTERN 06/07/2019 E11.9 Type 2 diabetes mellitus without Holli Shortle, DESIGN INTERN complications 06/07/2019 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 Holli Shortle, DESIGN INTERN heart failure 06/07/2019 I50.9 Heart failure, unspecified Holli Shortle, DESIGN INTERN 06/06/2019 E11.621 Type 2 diabetes mellitus with foot Luh Encarnacion, DESIGN INTERN ulcer 06/06/2019 B95.2 Enterococcus as the cause of KO Flores diseases classified elsewhere 06/06/2019 M86.9 Osteomyelitis, unspecified KO Flores 06/06/2019 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 Jake Encarnacion, DESIGN INTERN part of left foot with unspecified severity 06/06/2019 E11.621 Type 2 diabetes mellitus with foot KO Flores ulcer 06/06/2019 L03.116 Cellulitis of left lower limb Luh Mariscalheathjeremy Encarnacion, DESIGN INTERN 06/06/2019 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 KO Flores part of left foot with unspecified severity 06/06/2019 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 KO Flores heart failure 06/06/2019 I50.9 Heart failure, unspecified KO Flores 06/06/2019 I48.91 Unspecified atrial fibrillation KO Flores 06/06/2019 G47.33 Obstructive sleep apnea (adult) KO Flores (pediatric) Plan of Treatment Future Appointment(s):01/08/2020 8:45 am - Roosevelt Mccall M.D. at [id number]/19/2020 9:00 am - Chiquita Mancilla MD at [facility]12/06/2019 - Roosevelt Mccall M.D.M86.672 Other chronic osteomyelitis, left ankle and footFollow up:4-5 weeks Functional Status Description No Information Available Mental Status Description No Information Available Referrals Description No Information Available
--- NOTE | 2019-12-20 11:05 | ED ---
Lower Extremity - HPI Summary HPI Summary: The patient is an 84 y/o male arriving by ambulance to [facility] accompanied by with a chief complaint of increased erythema and swelling of the RLE over the last week. He reports that this began two weeks ago when he noticed slight erythema and swelling over the toes of the right foot. He saw Dr. Mccall for this who had not been concerned at the time. A week later, the symptoms worsened , and he saw Dr. Hill, who placed the patient on Bactrim on 12/14 one pill BID. He followed up with Dr. Mccall today, who recommended that the patient come here for cellulitis and DVT workup as the swelling and redness extends throughout the whole foot up to knee. The patient has had cellulitis twice before. He notes mild SOB worsening over the last few days, although he has chronic intermittent SOB from COPD and CHF. He additionally c/o pain in the left groin and thigh with decreased ROM of the leg secondary to pain. Symptoms currently rated 2/10 in severity. He is currently taking Coumadin for atrial fibrillation with INR checked monthly with scheduled check on 12/24. PMHx: TAVR, DM, HLD, HTN, PVD, asthma, sleep apnea, BPH. Former smoker, occasional EtOH, no substance use. Medications reviewed. Allergies noted. - History of Current Complaint Chief Complaint: EDShortnessOfBreath Stated Complaint: SOB/L LEG SWELLING PER EMS Time Seen by Provider: 12/20/19 10:40 Hx Obtained From: Patient Mechanism Of Injury: Unknown Onset of Pain: Days Onset/Duration: Still Present Severity Initially: Mild Severity Currently: Severe Pain Intensity: 2 Pain Scale Used: 0-10 Numeric Timing: Constant Location: Is Discrete @ - right lower leg Character Of Pain: Aching Associated Signs And Symptoms: Positive: Swelling, Redness, Other - groin and thigh pain in left leg causing decreased ROM, SOB Aggravating Factor(s): Movement Alleviating Factor(s): Nothing - Allergies/Home Medications Allergies/Adverse Reactions: Allergies Allergy/AdvReac Type Severity Reaction Status Date / Time nut - unspecified Allergy Swelling Verified 06/02/19 14:09 Of Face,Lips,& Throat Penicillins Allergy Swelling Verified 06/02/19 14:09 ramipril [From Altace] Allergy Coughing Verified 06/02/19 14:09 Home Medications: Home Medications Acetaminophen [Acetaminophen Extra Strength] 500 - 1,000 mg PO DAILY PRN [History Confirmed 12/20/19] Aspirin EC TAB* [Ecotrin EC Low Dose 81 MG*] 81 mg PO DAILY 12/20/19 [History Confirmed 12/20/19] Cholecalciferol CAP/TAB(NF) [Vitamin D3 CAP/TAB (NF)] 5,000 unit PO DAILY [History Confirmed 12/20/19] Magnesium 30 mg PO DAILY 12/20/19 [History Confirmed 12/20/19] Multivitamins/Minerals TAB* [Theragran/minerals TAB*] 1 tab PO DAILY 12/20/19 [ History Confirmed 12/20/19] Sulfamethox/Trimethoprim DS* [Bactrim DS 800/160 TAB*] 1 tab PO BID 12/20/19 [ History Confirmed 12/20/19] Warfarin TAB(*) [Coumadin TAB(*)] 3 mg PO MOWEFR 12/20/19 [History Confirmed 05/03] Warfarin TAB(*) [Coumadin TAB(*)] 6 mg PO SUTUTHSA 12/20/19 [History Confirmed 12/20/19] PMH/Surg Hx/FS Hx/Imm Hx Endocrine/Hematology History: Reports: Hx Diabetes - type II Denies: Hx Thyroid Disease Cardiovascular History: Reports: Hx Congestive Heart Failure, Hx Hypercholesterolemia, Hx Hypertension, Hx Peripheral Vascular Disease, Other Cardiovascular Problems/Disorders - TAVR Denies: Hx Pacemaker/ICD Respiratory History: Reports: Hx Asthma, Hx Chronic Obstructive Pulmonary Disease (COPD), Hx Sleep Apnea - 2L at night GI History: Denies: Hx Ulcer History: Reports: Hx Benign Prostatic Hyperplasia Denies: Hx Renal Disease Musculoskeletal History: Reports: Other Musculoskeletal History - torn rotator cuff repair, cellulitis Sensory History: Reports: Hx Cataracts - sx removed, Hx Contacts or Glasses - glasses Denies: Hx Hearing Aid Opthamlomology History: Reports: Hx Cataracts - sx removed, Hx Contacts or Glasses - glasses Psychiatric History: Denies: Hx Panic Disorder - Cancer History Cancer Type, 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 03/2018 CATARACT. Appendectomy,. nose surgery - DEVIATED SEPTUM. Rt shoulder torn rotator cuff repair Infectious Disease History: No Infectious Disease History: Denies: Hx Hepatitis, Hx Human Immunodeficiency Virus (HIV), Traveled Outside the [place] in Last 30 Days - Family History Known Family History: Positive: Hypertension, Other - Cancer - Social History Alcohol Use: Occasionally Alcohol Amount: LAST DRINK TUESDAY NIGHT Hx Substance Use: No Substance Use Type: Reports: None Hx Tobacco Use: Yes Smoking Status (MU): Former Smoker Review of Systems Positive: Shortness Of Breath Positive: Myalgia - pain in left groin and thigh, Decreased ROM - left leg secondary to pain, Edema - right leg Positive: Other - erythema low left leg All Other Systems Reviewed And Are Negative: Yes Physical Exam - Summary Physical Exam Summary: Constitutional: Well-developed, Well-nourished, Alert. (-) Distressed Skin: Warm, Dry HENT: Normocephalic; Atraumatic Eyes: Conjunctiva normal Neck: Musculoskeletal ROM normal neck. (-) JVD, (-) Stridor, (-) Tracheal deviation Cardio: Rhythm regular, rate normal, Heart murmur from TAVR; Intact distal pulses; Difficulty finding pedal pulses. Radial pulses are 2+ and symmetric. Pulmonary/Chest wall: Mild tachypnea at 25 rpm, Air entry is slightly decreased , Rales and wheezing in the lower bases, Wheezing most obvious at exhalation, (- ) Respiratory distress Abd: Soft, (-) tenderness, (-) Distension, (-) Guarding, (-) Rebound Musculoskeletal: Bilateral lower extremity edema with 2+ on right and 3+ on left , On the right leg I can press and feel pitting edema in the most posterior aspect of the thigh, The left is more edematous and compared to the right has a remarkable circumference, The feet are warm and well perfused, Difficulty finding pedal pulse Neuro: Alert, Oriented x3 Psych: Mood and affect Normal Triage Information Reviewed: Yes Vital Signs On Initial Exam: Initial Vitals Temp Pulse Resp BP Pulse Ox 97.2 F 59 14 147/64 94 12/20/19 10:37 12/20/19 10:37 12/20/19 10:37 12/20/19 10:37 12/20/19 10:37 Vital Signs Reviewed: Yes Procedures - Sedation Patient Received Moderate/Deep Sedation with Procedure: No Diagnostics - Vital Signs Vital Signs Temp Pulse Resp BP Pulse Ox 12/20/19 10:44 60 147/64 94 12/20/19 10:43 66 93 12/20/19 10:37 97.2 F 59 14 147/64 94 - Laboratory Result Diagrams: 12/20/19 11:06 12/20/19 11:05 Lab Statement: Any lab studies that have been ordered have been reviewed, and results considered in the medical decision making process. - Radiology CXR Radiology Interpretation Completed By: Radiologist Summary of Radiographic Findings: Impression: Cardiomegaly. No active cardiopulmonary disease. ED physician has reviewed this report. - Ultrasound Venous Doppler US Ultrasound Interpretation Completed By: Radiologist Summary of Ultrasound Findings: Impression: 1. No evidence for deep venous thrombosis. 2. Nonspecific mass in the left inguinal region possibly a hematoma given the patient's history of trauma although nonspecific. Recommend clinical correlation. ED physician has reviewed this report. - EKG 1320 Cardiac Rate: Other Rate - 57 BPM EKG Rhythm: Atrial Fibrillation Summary of EKG Findings: An EKG at 1320 reveals atrial fibrillation at 57 BPM, RBBB. No STEMI. ED physician has reviewed and interpreted this EKG. Re-Evaluation - Re-Evaluation First Eval Re-Evaluation Time: 12:15 Comment: Patient aware of admission, agrees with plan. Lower Extremity Course/Dx - Course Course Of Treatment: 84 y/o male presenting with severe erythema and swelling of the left foot up to the knee initially onset two weeks ago with worsening in the last week despite being placed on Bactrim BID. Orthopedics recommended admission for cellulitis as well as DVT workup. PMHx significant for cellulitis 2x, diabetes, afib with Coumadin use. Physical exam is significant for bilateral lower extremity edema with 2+ on right and 3+ on left, on the right leg I can press and feel pitting edema in the most posterior aspect of the thigh , the left is more edematous and compared to the right has a remarkable circumference, the feet are warm and well perfused although difficult to find pedal pulse, mild tachypnea at 25 rpm, air entry is slightly decreased, rales and wheezing in the lower bases, wheezing most obvious at exhalation, and heart murmur from TAVR. At this point, there may a mixed concern for COPD and CHF, although the lower extremity edema is more consistent with CHF. Patient administered Vancomycin and Cefepime for infection, Fentanyl for pain, and Duoneb for wheezing. Blood work reveals slight anemia, INR of 6.96, APTT of 63.3 , hyponatremia of 120, chloride of 89, CRP of 16.42, and BNP of 189. An EKG at 1320 reveals atrial fibrillation at 57 BPM, RBBB. No STEMI. Venous Doppler US is negative for DVT, although there is a nonspecific mass in the left inguinal region possible a hematoma. CXR reveals cardiomegaly but is otherwise negative. The patient is appropriate for admission. Dr. Ruiz from the hospitalist services accepts the patient for admission. She agrees that this is likely secondary to CHF. She notes hyponatremia, and recommends holding the fluids for now as there is no room for fluid repletion so the patient should be placed on fluid restrictions for now, but she will take care of the hyponatremia on the floor. Patient agreeable with plan. - Diagnoses Provider Diagnoses: Cellulitis, CHF (congestive heart failure) - Physician Notifications Discussed Care Of Patient With: Brittni Ruiz - hospitalist Time Discussed With Above Provider: 12:10 Instructed by Provider To: Other - Impression: 1. No evidence for deep venous thrombosis. 2. Nonspecific mass in the left inguinal region possibly a hematoma given the patient' history of trauma although nonspecific. Recommend clinical correlation. ED physician has reviewed this report. Discharge ED - Sign-Out/Discharge Documenting (check all that apply): Patient Departure - Patient accepted for admission by Dr. Ruiz. - Discharge Plan Condition: Stable Disposition: ADMITTED TO [facility] - Billing Disposition and Condition Condition: STABLE Disposition: Admitted to [facility] - Attestation Statements Document Initiated by Mary: Yes Documenting Scribe: Elly Newton Provider For Whom Mary is Documenting (Include Credential): Dr. Pollo Kumar MD Scribe Attestation: Elly Richardson scribed for Dr. Pollo Kumar MD on 12/20/19 at 1903. Scribe Documentation Reviewed: Yes Provider Attestation: The documentation as recorded by the Elly dobbins accurately reflects the service I personally performed and the decisions made by me, Dr. Pollo Kumar MD Status of Scribe Document: Viewed
[2019-12-20] MEDS ORDERED: Vancomycin(*) 1,000 MG in NS 0.9% 250 ML* 250 ML IV ONE (11:09)
[2019-12-20] MEDS ORDERED: Cefepime(*) 2 GM in NS 0.9% 50 ML* 50 ML IVPB ONE (11:10)
[2019-12-20] MEDS ORDERED: Vancomycin(*) 1,000 MG BAG/ADDV ONE (11:14)
[2019-12-20 11:20] LABS: ABS Lymphocytes 0.4 10^3/ul (1.0-4.8); ABS Monocytes 0.8 10^3/ul (0-0.8); ABS Neutrophils 4.1 10^3/ul (1.5-7.7); Eosinophil % 0.8 %; Hematocrit 29 % (42-52); Hemoglobin 9.7 g/dL (14.0-18.0); Lymphocyte % 7.1 %; Mean Corpuscular HGB Conc 34 g/dL (31-36); Mean Corpuscular Hemoglobin 28 pg (27-31); Mean Corpuscular Volume 81 fL (80-94); Mean Platelet Volume 7.3 fL (7.4-10.4); Platelet Count 185 10^3/uL (150-450); Red Blood Count 3.52 10^6 /uL (4.18-5.48); Red Cell Distribution Width 20 % (10-15); White Blood Count 5.4 10^3/uL (3.5-10.8)
[2019-12-20 11:39] LABS: Activated Partial Thrombo Time 63.3 seconds (26.0-38.0)
[2019-12-20 11:46] LABS: Anion Gap 6 mmol/L (2-11); BUN/Creatinine Ratio 21.4 (8-20); Blood Urea Nitrogen 24 mg/dL (6-24); CO2 Carbon Dioxide 25 mmol/L (22-32); Calcium 8.9 mg/dL (8.6-10.3); Chloride 89 mmol/L (101-111); EGFR African American 75.6 (>60); EGFR Non-African American 62.5 (>60); Glucose 86 mg/dL (70-100); Potassium 4.9 mmol/L (3.5-5.0); Sodium 120 mmol/L (135-145)
[2019-12-20] MEDS ORDERED: fentaNYL* 50 MCG/ML 2 ML VIAL (100 MCG VIAL) IV SLOW PU ONE (12:26)
[2019-12-20] MEDS: Albuterol/Ipratropium NEB.SOL* Albuterol 2.5 MG/Ipratropium 0.5 MG 3 ML INH SCH ×5 (12:32→16:57)
[2019-12-20] MEDS ORDERED: NS 0.9% 50 ML* 50 ML ONE (12:44)
[2019-12-20 12:45] LABS: INR 6.96 (0.82-1.09)
[2019-12-20 12:47] LABS: C Reactive Protein 16.42 mg/L (<8.01)
[2019-12-20] MEDS ORDERED: Cefepime 2 GM in Dextrose(*) 2 GM/50 ML BAG IV ONE (13:00)
[2019-12-20] MEDS ORDERED: Albuterol/Ipratropium NEB.SOL* Albuterol 2.5 MG/Ipratropium 0.5 MG 3 ML INH PRN (13:14)
[2019-12-20] MEDS ORDERED: NS 0.9% 500 ML* 500 ML IV ONE (13:27)
[2019-12-20] MEDS ORDERED: Albuterol HFA INHALER* 8 gm MDI INH PRN (13:32)
[2019-12-20 13:36] LABS: % Iron Saturation 14 % (15-55); Iron 68 ug/dL (50-212); Total Iron Binding Capacity 479 mcg/dL (250-450); Transferrin 342 mg/dL (203-362)
[2019-12-20] MEDS ORDERED: Vancomycin per Pharmacy* NOTE FOLLOW UP SCH (14:00)
[2019-12-20 14:01] LABS: Folate > 20.00 ng/mL (>3.99)
[2019-12-20 14:59] LABS: Urine Appearance Clear; Urine Bilirubin Negative (Negative); Urine Blood Negative (Negative); Urine Color Yellow; Urine Glucose Negative (Negative); Urine Ketones Negative (Negative); Urine Nitrite Negative (Negative); Urine Protein 1+(30 mg/dL) (Negative); Urine Specific Gravity 1.019 (1.010-1.030); Urine Urobilinogen Positive (Negative)
[2019-12-20] MEDS ORDERED: Vancomycin(*) 750 MG in NS 0.9% 250 ML* 250 ML IVPB ONE (15:00)
[2019-12-20 15:04] LABS: Urine Bacteria Absent (Absent); Urine Red Blood Cell Trace(0-2/hpf) (Absent); Urine White Blood Cell Trace(0-5/hpf) (Absent)
--- NOTE | 2019-12-20 15:59 | HP ---
CC: Dr. Galicia * HISTORY AND PHYSICAL: DATE OF ADMISSION: 12/20/19 PRIMARY CARE PROVIDER: Dr. Galicia. OTHER PROVIDERS: Dr. Mccall and Dr. Hill, Orthopedics. ATTENDING PHYSICIAN: Dr. Brittni Ruiz * (dictated by Tg Gordon, MARCI) CHIEF COMPLAINT: Cellulitis. HISTORY OF PRESENT ILLNESS: Mr. Redmond is an 84-year-old male with a past medical history significant for atrial fibrillation, heart failure, aortic stenosis status post AVR, COPD, CLL, diabetes, BPH, GELACIO, hypertension, hyperlipidemia, who presented to the emergency department today on recommendation of Dr. Mccall, Orthopedics given redness to his left lower extremity. 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 He reports he was seen by Dr. Hill and placed on Bactrim about a week ago and has had no improvement. He also mentions that he had surgery on this foot in May. In addition, the patient reports he has been noticing some weight gain over the past several weeks and increase in shortness of breath. He reports he has been self dosing his Lasix due to the weight gain. He reports he usually takes 40 mg , but instead he has been taking 60 mg daily occasionally. In addition, the patient reports left groin pain. He reports about 1 week ago, he was coughing and felt it was putting pressure on the area. He later fell and had to pull himself up and he believes he hurt his knee and his left groin at this time. While in the emergency department, it was initially noted that the patient has significant redness and edema to the left lower extremity. Therefore, Doppler was obtained, which revealed no DVT, but they did note a nonspecific mass in the left inguinal region possibly hematoma. Given the cellulitis, the patient was started on vancomycin and cefepime and blood cultures were obtained. Fortunately, the patient did not meet sepsis criteria as he does not have leukocytosis, he is afebrile, not tachycardic, not tachypneic. He was noted to be slightly anemic with a hemoglobin of 9.7 and 29, which is slightly below his baseline. It should also be noted that the patient has an increased INR at 6.96 and is hyponatremic with a sodium of 120. Given these findings, the hospitalists were asked to consult for admission. PAST MEDICAL HISTORY: 1. Atrial fibrillation. 2. Heart failure. 3. Aortic stenosis, status post AVR. 4. COPD. 5. CLL. 6. Diabetes. 7. BPH. 8. GELACIO. 9. Hypertension. 10. Hyperlipidemia. PAST SURGICAL HISTORY: 1. TAVR. 2. Appendectomy. 3. Rotator cuff repair. 4. Deviated septum repair. 5. Left foot irrigation and debridement and placement of wound VAC. HOME MEDICATIONS: 1. Furosemide 20 mg p.o. b.i.d. 2. Magnesium 30 mg p.o. daily. 3. Prednisone 10 mg every other day. 4. Triamcinolone 1 cap topical b.i.d. 5. Magnesium oxide 400 mg p.o. daily. 6. Lipitor 20 mg p.o. daily. 7. Flomax 0.4 mg p.o. daily. 8. Aspirin 81 mg p.o. daily. 9. Albuterol 2 puffs inhalations q.4 hours p.r.n. 10. Vitamin D 5000 units p.o. daily. 11. Breo Ellipta 200/25 one puff inhalation daily. 12. Glucosamine 1000 mg p.o. daily. 13. Tylenol 500 to 1000 mg p.o. daily p.r.n. 14. Multivitamin 1 tab p.o. daily. 15. Vitamin C 500 mg p.o. daily. 16. Coumadin 6 mg p.o. Tuesday, Tuesday, , Tuesday. 17. Coumadin 3 mg p.o. Tuesday, Tuesday and Tuesday. 18. Losartan 100 mg p.o. daily. 19. Bactrim 800/160 one tab p.o. b.i.d. ALLERGIES: NUTS, PENICILLIN, RAMIPRIL. FAMILY HISTORY: Mother is from heart disease and father is from pancreatic cancer. SOCIAL HISTORY: The patient is a former smoker. The patient reports social drinking. The patient does not use drugs. 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 The patient lives with his . The patient is independent in his ADLs. The patient's , Lori, will be his healthcare proxy in the event he cannot make decisions for himself. The patient is a full code. REVIEW OF SYSTEMS: The patient reports shortness of breath, left groin pain, left knee pain, edema. The patient denies fever, anorexia, chest pain, nausea, vomiting, diarrhea, abdominal pain, dysuria, hematuria, dysphagia, weakness, visual disturbances, rash, lesions, anxiety. PHYSICAL EXAMINATION GENERAL: Mr. Redmond is an 84-year-old male, who is lying in bed. Appears to be in no acute distress. Appears stated age. VITAL SIGNS: Temp 97.2, HR 55, RR 18, O2 saturation is 94% on room air, BP 135/ 70. HEENT: EOMs intact. Sclerae without icterus. Oral mucosa is moist without lesions. Posterior pharynx is clear. NECK: No lymphadenopathy. No pain to palpation. RESPIRATORY: Symmetrical chest expansion. No accessory muscle use. Wheezes heard in bases. No rhonchi or rales. CV: Irregular rhythm. Regular rate. S1, S2 present. No murmurs, rubs or gallops. ABDOMEN: Soft, nontender to palpation. Bowel sounds are normoactive. EXTREMITIES: Skin is warm and smooth bilaterally. The patient has edema bilaterally with left worse than right. Pedal pulses 2+ bilaterally. Large hematoma to left inner upper thigh. MUSCULOSKELETAL: The patient has pain to left knee with movement. Otherwise, no pain or deformities. NEURO: Awake, alert, and oriented x4. Motor strength is 5/5 in the upper and lower extremities. SKIN: The patient has chronic venous stasis changes to bilateral lower extremities. The patient has redness to left lower extremity. The patient has previous incision to the left lateral foot. No drainage noted. DIAGNOSTIC STUDIES/LAB DATA: WBC 5.4, hemoglobin 9.7, hematocrit 29, platelet 185. INR is 6.96, APTT 63.3. Sodium 120, potassium 4.9, chloride 89, carbon dioxide 25, BUN 24, creatinine 1.12. CRP 12.42. BNP 189. Venous Doppler study: No evidence of deep vein thrombosis. Some nonspecific mass in the left inguinal region, possibly hematoma given the patient's history of trauma, although nonspecific. ASSESSMENT AND PLAN: Mr. Redmond is an 84-year-old male with a past medical history significant for atrial fibrillation, heart failure, aortic stenosis status post aortic valve replacement, chronic obstructive pulmonary disease, chronic lymphocytic leukemia, diabetes, benign prostatic hyperplasia, obstructive sleep apnea, hypertension, hyperlipidemia, who presented to the emergency department today by the recommendation of his orthopedist due to redness in left lower extremity. The patient will be admitted inpatient: 1. Cellulitis. The patient has significant redness to the left lower extremity. The patient has failed outpatient antibiotics of Bactrim. The patient has been given cefepime and vancomycin here in the emergency department and we will continue this. I have ordered an MRI to evaluate for osteomyelitis. The patient does not currently meet systemic inflammatory response syndrome or sepsis criteria, but we will monitor him closely. Blood cultures have been obtained. I have contacted Infectious Disease. I will also contact Ortho. 2. Hyponatremia. The patient is noted to be hyponatremic with a sodium of 120. The patient's baseline is around 130. Given the patient's low sodium and elevated BUN/creatinine ratio, I am concerned the patient might be hypovolemic, although he does report he has put on 12 pounds over the past 6 weeks. We are awaiting chest x-ray read. I will order normal saline 500 mL at 100 mL per hour and after this I will obtain another BMP. If his sodium is still low, I will provide him with additional Lasix. If his sodium has improved, then we can suspect this as hyponatremia secondary to dehydration. 3. Anemia. The patient's hemoglobin and hematocrit are 9.7 and 29 respectively and INR of 6.96. The patient has a large hard hematoma on the left inner thigh. I suspect this is why he is slightly anemic. He is negative for deep vein thrombosis. We will monitor him closely. We will hold his Coumadin. We will monitor his INR daily. 4. Shortness of breath. The patient reports he has been short of breath for several weeks. The patient was given a DuoNeb here in the emergency department and he reports improvement. Patient's sob could be secondary to chronic obstructive pulmonary disease exacerbation, viral illness or he may be retaining a little fluid. We are awaiting the official read of the chest x- ray. As mentioned above, I am going to give him a small bolus and repeat his BMP. I have also ordered DuoNebs p.r.n. 5. Atrial fibrillation, on anticoagulation. The patient has a history of atrial fibrillation and is on Coumadin. The patient is rate controlled with metoprolol. I am holding his anticoagulation given he is supratherapeutic. I will resume when he is at goal. We will continue his metoprolol. We will monitor his electrolytes. 6. Heart failure. I will place the patient on daily weights and strict I's and O's. I am currently going to hold his Lasix until we have a repeat BMP this evening and the official read on his chest x-ray. Depending on the read of the chest x-ray and the repeat BMP, he may need additional Lasix. We will monitor him closely. His last echocardiogram was on 03/27/19 and his EF was approximately 65%. Given his clinical course, we may need to repeat this, but at this time I will hold off. 7. Chronic obstructive pulmonary disease, on chronic prednisone. We will continue the patient's prednisone. We will place him on DuoNebs p.r.n. The patient did report some improvement with a DuoNeb here in the emergency department. 8. Diabetes. It appears the patient is not on any medication for diabetes, but he carries a diagnosis of a [id number] diabetic, therefore I will place him on fingersticks and sliding scale. 9. Benign prostatic hyperplasia. We will continue the patient's home medications of Flomax. 10. Obstructive sleep apnea. The patient has a history of obstructive sleep apnea, but does not wear a CPAP. We will defer this to his primary care. 11. Hypertension. The patient is currently normotensive here in the emergency department and reports he did take his medications today. I will continue his losartan. 12. Hyperlipidemia. I will continue the patient's statin. 13. FEN: I will place the patient on a consistent carb diet. 14. Code status: The patient is a full code. 15. DVT prophylaxis: The patient is high risk, but currently is supratherapeutic on his INR, therefore I will hold on any DVT prophylaxis at this time. We will resume his Coumadin when his INR is therapeutic. TIME SPENT: Approximately 60 minutes was spent on this admission, greater than half the time was spent with the patient and obtaining my history, performing physical exam and reviewing my plan of care. The case has been reviewed with my attending, Dr. Ruiz and she is in agreement with my plan of care. TG GORDON NP [id number]/[facility] #: [id number] [facility]IMINALLY INSANEAmanda
[2019-12-20] MEDS ORDERED: Dextrose 50% Syringe 50 ML* 25 GM/50 ML SYRINGE IV PUSH PRN (16:02)
[2019-12-20] MEDS: Insulin LISPRO* 1 UNITS UNIT SUBCUT SCH (16:54)
[2019-12-20] MEDS: Vancomycin(*) 1,000 MG in NS 0.9% 250 ML* 250 ML IV SCH (17:54)
[2019-12-20] MEDS: Acetaminophen TAB* 325 MG PO PRN (17:55)
--- NOTE | 2019-12-20 18:35 | CONS ---
CONSULTATION REPORT: DATE OF CONSULT: 12/20/19 PRIMARY CARE PROVIDER: Dr. Abel Galicia. PROVIDER REQUESTING CONSULTATION: Holli Mendez NP CONSULTING SERVICE: Infectious Disease. PROVIDER: Aníbal Encarnacion NP ATTENDING PROVIDER: Dr. Shaq Akins.* (DICTATED BY ANÍBAL ENCARNACION NP) REASON FOR CONSULT: Left lower extremity cellulitis. IMPRESSION: 1. Left lower extremity cellulitis. The patient has significant erythema and edema to the left lower extremity. There is no obvious open wound other than healed previous surgical incision to the lateral aspect of the left foot. The patient had been on Bactrim outpatient for approximately 1 week. He received cefepime and vancomycin in the ER. He had a venous Doppler negative for deep venous thrombosis. It is to note that previously in June of 2019, the patient had ABIs showing some moderately reduced ABIs on the left. Additionally , at that time, he had cultures from the wound in his foot post left fifth ray amputation with pseudomonas, E. coli, and enterococcus. Blood cultures have been obtained in the emergency room. He is currently afebrile with no leukocytosis or neutropenia. MRI today showing evidence of osteomyelitis involving the phalanges of the fifth toe as well as the distal margin of the partially resected fifth metatarsal. Diffuse soft tissue edema. No loculated soft tissue plane abscess collection evident. 2. Diabetes mellitus type 2. 3. Venous insufficiency. 4. Anemia. 5. History of left fifth metatarsal osteomyelitis, status post left fifth ray amputation. RECOMMENDATIONS/PLAN: Recommend continuing vancomycin, trough goal 15 to 20 and continue cefepime, will increase cefepime to 2 g IV q.12 hours. Have discussed with Orthopedic Surgery the findings of osteomyelitis in the fifth phalanges and remaining fifth metatarsal. We will continue to follow along. Further recommendations will be based on the patient's clinical course and any culture data that we obtain. HISTORY OF PRESENT ILLNESS: Mr. Redmond is an 84-year-old male with past medical history significant for congestive heart failure; chronic atrial fibrillation; hypertension; hyperlipidemia; aortic stenosis, status post TAVR; diabetes mellitus type 2; COPD; obstructive sleep apnea; BPH; chronic left fifth metatarsal osteomyelitis, status post excision of the proximal fifth metatarsal ; chronic hyponatremia; CLL, who had originally presented to the hospital back in June with a cellulitis, at which time he underwent incision and drainage with excision of the proximal left fifth metatarsal and completed a 6-week course of IV antibiotics for presumed osteomyelitis. Cultures from the time of surgery back in June with pseudomonas, E. coli, Enterococcus faecalis. The pathology from that time with no evidence of acute osteomyelitis. The foot had been doing well. He continued to have a wound to the left lateral midfoot that was improving. He continued to follow closely with Orthopedic Surgery and he had had epithelial coverage of the wound. He had been moved into an orthotic and wearing a regular shoe in November. At the end of November, he was complaining of some left groin pain, he felt it was secondary to coughing and at that point, he had been transitioned to a dry dressing with occasional antibiotic ointment to the left lateral foot. He presented on 12/14/19 to the orthopedic clinic with complaints of increased swelling and pain throughout the left lower leg and foot. He states that he had had some redness in the foot after catching his foot on a doorjamb. He has also had several falls due to the discomfort that he was having in his left groin. He also reports that a few weeks ago, he had cough and cold symptoms and was followed by his PCP for this. When he saw Orthopedics on 12/14/19, they felt that he had a possible mild cellulitis and was placed on Bactrim with plans to follow up with Dr. Mccall in 1 week. The patient was seen by Dr. Mccall in the clinic today. The patient had had increased swelling and redness in the leg now moving from his left foot and up his leg. He states this happened essentially overnight and that it had been maintained just in the foot, but quickly progressed up his leg in the last 24 hours. He denies any fevers, chills, chest pain. He does report recent weight gain of about 12 pounds. He denies shortness of breath. He has an occasional cough. Denies chest pain. Reports some discomfort in his left leg, has redness in his leg. Denies nausea, vomiting, diarrhea, constipation, abdominal pain, urinary symptoms, or recent travel. Dr. Mccall referred him to the emergency room for further evaluation. While in the emergency room, he was noted to have significant erythema and edema to the left lower extremity. He had a venous Doppler obtained revealing no DVT. The ultrasound did reveal a nonspecific mass in the left inguinal region, possibly a hematoma. The patient received vancomycin and cefepime. Blood cultures were obtained. He is afebrile with no leukocytosis. His CRP is elevated at 16.42. He is noted to have a supratherapeutic INR of 6.96 and hyponatremia worse than his baseline of 120. Given his presentation and the findings, he was referred to the hospitalist service for admission. PAST MEDICAL HISTORY: 1. Congestive heart failure. 2. Chronic atrial fibrillation. 3. Hypertension. 4. Hyperlipidemia. 5. Aortic stenosis. 6. Diabetes mellitus type 2. 7. COPD. 8. Obstructive sleep apnea. 9. BPH. 10. Chronic left fifth metatarsal osteomyelitis. 11. Chronic hyponatremia. 12. CLL. PAST SURGICAL HISTORY: 1. Status post TAVR. 2. Status post left fifth ray amputation. 3. Status post incision and drainage of the left foot. 4. Status post nasal septoplasty. 5. Status post appendectomy. 6. Status post rotator cuff repair. MEDICATIONS: Home medications: 1. Furosemide 20 mg by mouth twice daily. 2. Magnesium 30 mg by mouth daily. 3. Prednisone 10 mg by mouth every other day. 4. Triamcinolone cream 0.5% apply topical twice daily. 5. Magnesium oxide 400 mg by mouth daily. 6. Atorvastatin 20 mg by mouth daily. 7. Tamsulosin 0.4 mg by mouth daily. 8. Aspirin 81 mg by mouth daily. 9. Albuterol HFA inhaler 2 puffs inhalations every 4 hours as needed for shortness of breath or wheeze. 10. Vitamin D3 5000 units by mouth daily. 11. Breo Ellipta MDI 200/25 one puff inhalation daily. 12. Glucosamine 1000 mg by mouth daily. 13. Acetaminophen 500 to 1000 mg by mouth daily as needed for pain. 14. Multivitamin 1 tablet by mouth daily. 15. Ascorbic acid 500 mg by mouth daily. 16. Warfarin 6 mg by mouth on Tuesday, Tuesday, , Tuesday. 17. Warfarin 3 mg by mouth on Tuesday, Tuesday, Tuesday. 18. Losartan 100 mg by mouth daily. 19. Bactrim DS 800/160 one tablet by mouth twice daily. Hospital medications: 1. Albuterol HFA inhaler 2 puffs inhalation every 4 hours as needed for shortness of breath or wheeze. 2. DuoNeb every 4 hours while awake as needed for shortness of breath or wheeze. 3. Aspirin 81 mg by mouth daily. 4. Atorvastatin 20 mg by mouth daily. 5. Cefepime 2 g IV daily. 6. Dextrose 12.5 g IV as needed for glucose less than 60. 7. Humalog insulin sliding scale subcutaneous before meals. 8. Losartan 100 mg by mouth daily. 9. Magnesium oxide 400 mg by mouth daily. 10. Dulera 200/5 MDI 2 puffs inhalation twice daily. 11. Prednisone 10 mg by mouth every other day. 12. Sodium chloride 500 mL bolus intravenously x1. 13. Tamsulosin 0.4 mg by mouth daily. 14. Vancomycin 1000 mg IV every 12 hours. ALLERGIES: 1. NUTS. 2. PENICILLIN caused swelling. 3. RAMIPRIL caused cough. FAMILY HISTORY: Denies family history of recurrent or resistant infections. Mother with a history of coronary artery disease. No family history of diabetes. Father with a history of pancreatic cancer. SOCIAL HISTORY: Occasionally drinks alcohol. He is a former tobacco user, quitting approximately 45 years ago. Prior to that, he had a 2- to 3-year light smoking history. Denies recreational drug use. REVIEW OF SYSTEMS: I performed a 10-point review of systems. All the pertinent positives and negatives are mentioned in the history of present illness. The remaining review of systems are negative. PHYSICAL EXAM: Vital Signs: Temperature 97.2, heart rate 68, respiratory rate 18, O2 sat 93% on room air, blood pressure 166/61. General Appearance: No acute distress, sitting up in bed. Head: Normocephalic, atraumatic. EENT: Extraocular movements intact. No subconjunctival hemorrhage. Moist mucous membranes. Neurological: Alert and oriented. Moves all extremities. Cardiovascular: His heart rate is irregular. S1 and S2 present. There are no murmurs, rubs, or gallops heard. Respiratory: Lungs are clear to auscultation bilaterally. There is no accessory muscle use, rhonchi, or rales noted or wheezing. Abdomen: Bowel sounds present. Abdomen is large, soft, nontender, nondistended. Extremities: He has bilateral lower extremity edema, the left worse than the right. 2+ pedal pulses bilaterally. Musculoskeletal: No clubbing or cyanosis noted. He exhibits good strength in all extremities. He has full range of motion of the left knee with no effusion. He is able to dorsi and plantarflex the left ankle with some difficulty due to edema. Psychological: Calm and cooperative. Skin: Bilateral lower extremities with chronic venous stasis changes. Left lower extremity has a dark erythema. The leg is warm. There is an area to the left lateral midfoot that has a healed previous surgical incision. It is not currently open. DIAGNOSTIC STUDIES/LAB DATA: Sodium 120, potassium 4.9, chloride 89, CO2 of 25 , BUN 24, creatinine 1.12, glucose 86. White blood cell count 5.4, hemoglobin 9.7, hematocrit 29, and platelet count 185. INR is 6.96. Please see impression and recommendations outlined above, recommendations have been discussed with Holli Mendez NP. Thank you for asking us to see Mr. Redmond in consultation. The case has been discussed with my attending, Dr. Shaq Akins, who agrees with the plan of care. Reviewed by CASE DE LUNA 12/24/19 0912 [id number]/[facility] #: [id number] NIXON
--- NOTE | 2019-12-20 19:01 | CONS ---
CONSULTATION REPORT: DATE OF CONSULT: 12/20/19 HISTORY OF PRESENT ILLNESS: Gordon is an 84-year-old gentleman who a couple months ago had debridement of his left fifth ray for osteomyelitis. He had very slow healing, but actually with persistent dressing changes mostly assisted by his , he healed the wound about 2 to 3 weeks ago. He has been wearing just a regular sneaker with a dry dressing, but now for the last week, he has had increasing warmth, redness of the calf and some slight shortness of breath for a day or two. This has exacerbated. He was seen 4 to 5 days ago by my associate and given a course of oral antibiotics, but his situation has worsened, so he is admitted to the medical service today for evaluation. Today, so far he has had Doppler exam of the leg, which did not show a DVT. He has had some groin pain, which was noted few weeks ago in the office with me and he had a hip x-ray, which did not show any significant arthritic changes in the hip and I did not think he had an obvious hernia on the examination. Some of that groin pain continues. His entire calf is red, edematous, and cellulitic. The foot itself is also edematous and cellulitic. The wound laterally is not particularly angry- looking. It is about 3 cm in length, a few millimeters wide. It is shallow. It is not particularly draining. There is no foul-smelling material. PAST MEDICAL HISTORY: Outlined in the chart with a recent H and P today. MEDICATIONS: Outlined in the chart with a recent H and P today. REVIEW OF SYSTEMS: Outlined in the chart with a recent H and P today. IMPRESSION AND PLAN: Ashkan has an MRI today also, which shows some edema in the remnant of the fifth metatarsal and then also at the base of the fourth metatarsal in the contiguous area. It is possible that he has had some spread of the osteomyelitis despite the healing process that he has demonstrated. The workup is still underway. He will be placed on some strong antibiotics for the cellulitis and we will follow his course. [id number]/[facility] #: [id number] NIXON
[2019-12-20 19:43] LABS: BUN/Creatinine Ratio 18.1 (8-20); Calcium 8.4 mg/dL (8.6-10.3); EGFR African American 65.4 (>60)
[2019-12-20 19:55] LABS: Potassium 5.2 mmol/L (3.5-5.0)
[2019-12-20] MEDS: Cefepime 2 GM in Dextrose(*) 2 GM/50 ML BAG IV SCH (21:47)
[2019-12-20] MEDS: traMADol TAB* 50 MG PO PRN (23:17)
[2019-12-21] MEDS: Vancomycin(*) 1,000 MG in NS 0.9% 250 ML* 250 ML IV SCH ×2 (06:34→18:46)
[2019-12-21 06:36] LABS: ABS Basophils 0.1 10^3/ul (0-0.2); ABS Eosinophils 0.1 10^3/ul (0-0.6); ABS Lymphocytes 0.4 10^3/ul (1.0-4.8); ABS Neutrophils 3.3 10^3/ul (1.5-7.7); Eosinophil % 1.4 %; Hematocrit 28 % (42-52); Hemoglobin 9.6 g/dL (14.0-18.0); Mean Corpuscular HGB Conc 34 g/dL (31-36); Mean Corpuscular Hemoglobin 27 pg (27-31); Mean Corpuscular Volume 81 fL (80-94); Platelet Count 187 10^3/uL (150-450); Red Blood Count 3.52 10^6 /uL (4.18-5.48); Red Cell Distribution Width 20 % (10-15); White Blood Count 4.9 10^3/uL (3.5-10.8)
[2019-12-21 06:58] LABS: INR 6.34 (0.82-1.09)
[2019-12-21 07:12] LABS: Albumin/Globulin Ratio 1.6 (1-3); BUN/Creatinine Ratio 19.1 (8-20); Calcium 8.5 mg/dL (8.6-10.3); EGFR African American 77.2 (>60); EGFR Non-African American 63.8 (>60); Globulin 2.5 g/dL (2-4); Potassium 4.9 mmol/L (3.5-5.0); Total Bilirubin 1.5 mg/dL (0.2-1.0); Total Protein 6.5 g/dL (6.4-8.9)
[2019-12-21] MEDS: Mometasone/Formoter 200/5 MDI INH SCH ×2 (07:56→20:51)
[2019-12-21] MEDS ORDERED: Furosemide IV* 10 MG/ML 2 ML VIAL (20 MG) IV SLOW PU ONE (09:05)
[2019-12-21] MEDS: Insulin LISPRO* 1 UNITS UNIT SUBCUT SCH ×3 (09:11→17:18)
[2019-12-21] MEDS: Atorvastatin* 20 MG TAB PO SCH (09:42)
[2019-12-21] MEDS: Aspirin EC TAB* 81 MG TAB.EC PO SCH (09:42)
[2019-12-21] MEDS: Magnesium Oxide TAB* 400 MG PO SCH (09:42)
[2019-12-21] MEDS: Losartan TAB* 25 MG PO SCH (09:42)
[2019-12-21] MEDS: Tamsulosin CAP* 0.4 MG PO SCH (10:07)
--- NOTE | 2019-12-21 10:18 | PN ---
Progress Note - Progress Note Date of Service: 12/21/19 SOAP: Subjective: Patient seen and examined in bed. He states he feels well. He feels better than yesterday and thinks the redness and swelling in his left calf have improved. He denies CP, f/c. He does still have some SOB. Pain well controlled with meds. Objective: [General: A&O. NAD. LLE: Erythema and swelling about the calf, warm to touch compared to contralateral side. Non-tender to palpation with no palpable cords. No drainage from incision. Able to DF/PF ankle without pain. DP pulse 2+. Assessment: [Left lower extremity cellulitis. Possible recurrent osteomyelitis of 5th and 4th ray. Plan: [Doppler neg for DVT MRI shows possible osteomyelitis of the remaining 5th ray and the 4th Cont IV ABX per ID cont pain meds as needed Possible OR Tuesday for debridement with Dr. Mccall Vital Signs Temp Pulse Resp BP Pulse Ox 98.5 F 73 20 141/64 98 12/21/19 03:09 12/21/19 09:49 12/21/19 09:49 12/21/19 03:09 12/21/19 09:49 Laboratory Last Values WBC 4.9 10^3/uL (3.5-10.8) 12/21/19 06:23 RBC 3.52 10^6 /uL (4.18-5.48) L 12/21/19 06:23 Hgb 9.6 g/dL (14.0-18.0) L 12/21/19 06:23 Hct 28 % (42-52) L 12/21/19 06:23 MCV 81 fL (80-94) 12/21/19 06:23 MCH 27 pg (27-31) 12/21/19 06:23 MCHC 34 g/dL (31-36) 12/21/19 06:23 RDW 20 % (10-15) H 12/21/19 06:23 Plt Count 187 10^3/uL (150-450) 12/21/19 06:23 MPV 7.0 fL (7.4-10.4) L 12/21/19 06:23 Neut % (Auto) 68.7 % 12/21/19 06:23 Lymph % (Auto) 9.0 % 12/21/19 06:23 [place] % (Auto) 19.6 % 12/21/19 06:23 Eos % (Auto) 1.4 % 12/21/19 06:23 Baso % (Auto) 1.3 % 12/21/19 06:23 Absolute Neuts (auto) 3.3 10^3/ul (1.5-7.7) 12/21/19 06:23 Absolute Lymphs (auto) 0.4 10^3/ul (1.0-4.8) L 12/21/19 06:23 Absolute Monos (auto) 1.0 10^3/ul (0-0.8) H 12/21/19 06:23 Absolute Eos (auto) 0.1 10^3/ul (0-0.6) 12/21/19 06:23 Absolute Basos (auto) 0.1 10^3/ul (0-0.2) 12/21/19 06:23 Absolute Nucleated RBC 0.0 10^3/ul 12/21/19 06:23 Nucleated RBC % 0.0 12/21/19 06:23 INR (Anticoag Therapy) 6.34 (0.82-1.09) H* 12/21/19 06:23 APTT 63.3 seconds (26.0-38.0) H 12/20/19 11:06 Sodium 120 mmol/L (135-145) L 12/21/19 06:23 Potassium 4.9 mmol/L (3.5-5.0) 12/21/19 06:23 Chloride 91 mmol/L (101-111) L 12/21/19 06:23 Carbon Dioxide 21 mmol/L (22-32) L 12/21/19 06:23 Anion Gap 8 mmol/L (2-11) 12/21/19 06:23 BUN 21 mg/dL (6-24) 12/21/19 06:23 Creatinine 1.10 mg/dL (0.67-1.17) 12/21/19 06:23 Est GFR ( Amer) 77.2 (>60) 12/21/19 06:23 Est GFR (Non-Af Amer) 63.8 (>60) 12/21/19 06:23 BUN/Creatinine Ratio 19.1 (8-20) 12/21/19 06:23 Glucose 83 mg/dL (70-100) 12/21/19 06:23 POC Glucose (mg/dL) 112 mg/dL (70-100) H 12/21/19 08:08 Calcium 8.5 mg/dL (8.6-10.3) L 12/21/19 06:23 Iron 68 ug/dL (50-212) 12/20/19 11:05 TIBC 479 mcg/dL (250-450) H 12/20/19 11:05 % Saturation 14 % (15-55) L 12/20/19 11:05 Unsat Iron Binding < 464 ug/dL 12/20/19 11:05 Transferrin 342 mg/dL (203-362) 12/20/19 11:05 Ferritin 99.0 ng/mL (24-336) 12/20/19 11:05 Total Bilirubin 1.50 mg/dL (0.2-1.0) H 12/21/19 06:23 AST 113 U/L (13-39) H 12/21/19 06:23 ALT 59 U/L (7-52) H 12/21/19 06:23 Alkaline Phosphatase 101 U/L (34-104) 12/21/19 06:23 C-Reactive Protein 16.42 mg/L (<8.01) H 12/20/19 11:05 B-Natriuretic Peptide 189 pg/mL (<=100) H 12/20/19 11:05 Total Protein 6.5 g/dL (6.4-8.9) 12/21/19 06:23 Albumin 4.0 g/dL (3.2-5.2) 12/21/19 06:23 Globulin 2.5 g/dL (2-4) 12/21/19 06:23 Albumin/Globulin Ratio 1.6 (1-3) 12/21/19 06:23 Vitamin B12 695 pg/mL (180-914) 12/20/19 11:05 Folate > 20.00 ng/mL (>3.99) 12/20/19 11:05 Urine Color Yellow 12/20/19 12:25 Urine Appearance Clear 12/20/19 12:25 Urine pH 6.0 (5-9) 12/20/19 12:25 Ur Specific [place] 1.019 (1.010-1.030) 12/20/19 12:25 Urine Protein 1+(30 mg/dl) (Negative) A 12/20/19 12:25 Urine Ketones Negative (Negative) 12/20/19 12:25 Urine Blood Negative (Negative) 12/20/19 12:25 Urine Nitrate Negative (Negative) 12/20/19 12:25 Urine Bilirubin Negative (Negative) 12/20/19 12:25 Urine Urobilinogen Positive (Negative) A 12/20/19 12:25 Ur Leukocyte Esterase Negative (Negative) 12/20/19 12:25 Urine WBC (Auto) Trace(0-5/hpf) (Absent) 12/20/19 12:25 Urine RBC (Auto) Trace(0-2/hpf) (Absent) 12/20/19 12:25 Urine Bacteria Absent (Absent) 12/20/19 12:25 Urine Glucose Negative (Negative) 12/20/19 12:25 Urine Ascorbic Acid * (Negative) A 12/20/19 12:25
[2019-12-21] MEDS: Cefepime 2 GM in Dextrose(*) 2 GM/50 ML BAG IV SCH ×2 (10:30→21:24)
--- NOTE | 2019-12-21 10:37 | PN ---
Progress Note - Progress Note Date of Service: 12/21/19 SOAP: Subjective: CC: Left LE cellulitis HPI: Mr. Redmond is an 84 yo male with PMH significant for CHF, C Afib, HTN, DM2, COPD , GELACIO, BPH, CLL, s/p TAVR, HLD, and chronic left 5th metatarsal osteomyelitis s/p exciciosn of distal metatarsal; who presented to the emergency room with left LE edema and LE erythema. Denies fever, chills, nausea , vomiting, and diarrhea. Reports wheezing and occasional cough. Continues to have bilateral LE edema, left > right. Objective: Vital Signs - 8 hr 12/21/19 12/21/19 12/21/19 03:09 08:00 09:49 Temperature 98.5 F Pulse Rate 63 64 73 Respiratory 18 18 20 Rate Blood Pressure 141/64 (mmHg) O2 Sat by Pulse 94 96 98 Oximetry Physical Exam: General: NAD, laying in bed Neurological: Alert and Oriented HEENT: Moist MM Cardiovascular: Heart rate regular. Unable to palpate left DP pulse Respiratory: Lung sounds clear Abdominal: Bowel sounds present; ABD large, soft and non tender MSK: Full ROM left knee and ankle. 2-3+ edema bilateral LEs; left > right, improved from yesterday Skin: Dark erythema to the left leg from knee distal to the foot, slight warmth compared to the right LE. Bilateral LE with hemosiderin staining Laboratory Results - last 24 hr 12/20/19 12/21/19 12/21/19 19:17 06:23 06:23 WBC 4.9 RBC 3.52 L Hgb 9.6 L Hct 28 L MCV 81 MCH 27 MCHC 34 RDW 20 H Plt Count 187 MPV 7.0 L Neut % (Auto) 68.7 Lymph % (Auto) 9.0 [place] % (Auto) 19.6 Eos % (Auto) 1.4 Baso % (Auto) 1.3 Absolute Neuts (auto) 3.3 Absolute Lymphs (auto) 0.4 L Absolute Monos (auto) 1.0 H Absolute Eos (auto) 0.1 Absolute Basos (auto) 0.1 Absolute Nucleated RBC 0.0 Nucleated RBC % 0.0 INR (Anticoag Therapy) 6.34 H* APTT Sodium 120 L Potassium 5.2 H Chloride 91 L Carbon Dioxide 24 Anion Gap 5 BUN 23 Creatinine 1.27 H Est GFR ( Amer) 65.4 Est GFR (Non-Af Amer) 54.0 BUN/Creatinine Ratio 18.1 Glucose 135 H Calcium 8.4 L 12/21/19 12/21/19 Sodium 120 L Potassium 4.9 Chloride 91 L Carbon Dioxide 21 L Anion Gap 8 BUN 21 Creatinine 1.10 Est GFR ( Amer) 77.2 Est GFR (Non-Af Amer) 63.8 BUN/Creatinine Ratio 19.1 Glucose 83 POC Glucose (mg/dL) 112 H Calcium 8.5 L Total Bilirubin 1.50 H AST 113 H ALT 59 H Alkaline Phosphatase 101 Total Protein 6.5 Albumin 4.0 Globulin 2.5 Albumin/Globulin Ratio 1.6 Microbiology 12/20/19 12:25 Urine Culture - Final Urine No Growth (<1,000 CFU/mL) 12/20/19 12:13 Aerobic Blood Culture - Preliminary Blood Venous No Growth Day 1 Anaerobic Blood Culture - Preliminary No Growth Day 1 12/20/19 11:05 Aerobic Blood Culture - Preliminary Blood Venous No Growth Day 1 Anaerobic Blood Culture - Preliminary No Growth Day 1 Assessment: 1. Left LE cellulitis with possible osteomyelitis. Previously S/P proximal left 5th metararsal excision in June 2019 for osteomyelitis. Cultures at that time polymicrobial; including pseudomonas, E coli, and enterococcus. Venous Doppler - No DVT. MRI with evidence of osteomyelitis at the distal 5th metatarsal, 5th phalanges, and the base of the 4th phalanges; no abscess or fluid collection. Blood cultures with no growth to date. Afebrile and no leukocytosis. Elevated CRP. 2. DM2. 3. Venous insufficiency. Moderately reduced ABIs in June 2019. Previously he has been seen by Santi Rubio in 2018 and attempted an unsuccessful angio. 4. History of left 5th metatarsal osteomyelitis. S/P exision left proximal metatarsal in June 2019 and received an extended course of IV ABX. Plan: Recommend continuing Vancomycin, trough goal 15-20 and cefepime. Orthopedics plans to take Mr. Redmond to the OR in the next few days. Final recommendations will be based on tissue culture results and clinical course. Case was discussed with Dr. Hancock and he will consult on the Pt to determine if he has any recommendations for the venous insufficiency at this time.
--- NOTE | 2019-12-21 11:48 | PN ---
Subjective Date of Service: 12/21/19 Interval History: Pt reports increased edema in lower extremities advancing redness left lower extremity and pain in left thigh and groin area. Pt reports slow healing wound on left foot for approximately 1.5 weeks. Pt has been taking bactrim at home but has not seen improvement. pt also reports increased SOB with wheezing, has been using albuterol inhaler at home, pt believes it is helping however, wheezes persists. Family History: Unchanged from Admission Social History: Unchanged from Admission Past Medical History: Unchanged from Admission Objective Active Medications: Acetaminophen (Tylenol Tab*) 650 mg PO Q6H PRN PRN Reason: PAIN - MILD Last Admin: 12/20/19 17:55 Dose: 650 mg Albuterol (Ventolin Hfa Inhaler*) 2 puff INH Q4H PRN PRN Reason: SHORTNESS OF BREATH Last Admin: 12/21/19 07:55 Dose: 2 puff Albuterol/Ipratropium (Duoneb (Albuterol 2.5 Mg/Ipratropium 0.5 Mg)) 1 neb INH [id number] AWAKE PRN PRN Reason: sob/wheexing Last Admin: 12/21/19 09:49 Dose: 1 neb Aspirin (Aspirin Ec Tab*) 81 mg PO DAILY [facility] Last Admin: 12/21/19 09:42 Dose: 81 mg Atorvastatin Calcium (Lipitor*) 20 mg PO DAILY [facility] Last Admin: 12/21/19 09:42 Dose: 20 mg Dextrose (D50w Syringe 50 Ml*) 12.5 gm IV PUSH .FOR FS < 60 - SS PRN PRN Reason: FS < 60 Vancomycin HCl 1,000 mg/ (Sodium Chloride) 250 mls @ 166.667 mls/hr IV Q12H [facility] Last Admin: 12/21/19 06:34 Dose: 166.667 mls/hr Cefepime HCl (Maxipime 2 Gm In Dextrose Duplex (*)) 2 gm in 50 mls @ 100 mls/ hr IV Q12H [facility] Last Admin: 12/21/19 10:30 Dose: 100 mls/hr Insulin Human Lispro (Humalog*) 0 units SUBCUT AC [facility]; Protocol Last Admin: 12/21/19 09:11 Dose: Not Given Losartan Potassium (Cozaar Tab*) 100 mg PO DAILY [facility] Last Admin: 12/21/19 09:42 Dose: 100 mg Magnesium Oxide (Magox 400 Tab*) 400 mg PO DAILY [facility] Last Admin: 12/21/19 09:42 Dose: 400 mg Mometasone Furoate/Formoterol Fumar (Dulera 200/5 Mdi*) 2 puff INH BID [facility] Last Admin: 12/21/19 07:56 Dose: 2 puff Pharmacy Consult (Vancomycin Per Pharmacy*) 1 note FOLLOW UP .VANC PER PHARMACY [facility]; Protocol Pharmacy Profile Note (Vancomycin Trough Check) 1 note FOLLOW UP 0600 ONE Stop: 12/22/19 06:01 Prednisone (Deltasone 5 Mg Tab) 10 mg PO EVERY OTHER DAY [facility] Tamsulosin HCl (Flomax Cap*) 0.4 mg PO DAILY [facility] Last Admin: 12/21/19 10:07 Dose: Not Given Tramadol HCl (Ultram*) 50 mg PO Q6H PRN PRN Reason: PAIN - MODERATE Last Admin: 12/20/19 23:17 Dose: 50 mg Vital Signs - 8 hr 12/21/19 12/21/19 08:00 09:49 Pulse Rate 64 73 Respiratory 18 20 Rate O2 Sat by Pulse 96 98 Oximetry Oxygen Devices in Use Now: None Appearance: 84 yo elderly gentleman sitting up in bed eating breakfast. Mild respiratory distress noted while eating. Eyes: No Scleral Icterus, PERRLA Ears/Nose/Mouth/Throat: NL Teeth, Lips, Gums, Clear Oropharnyx, Mucous Membranes Moist Neck: NL Appearance and Movements; NL JVP, Trachea Midline, No Thyroid Enlargement, Masses Respiratory: Symmetrical Chest Expansion and Respiratory Effort, - - Wheezes auscultated throughout all lung meredith Cardiovascular: - - edema noted to bilateral lower extrems right leg below knee +3 pitting edema. +Pedal pulse palpated right foot. Left leg below knee +4 pitting edema unable to palpate left pedal pulse. Grade 3 systolic murmur ausculated Abdominal: NL Sounds; No Tenderness; No Distention, No Hepatosplenomegaly Extremities: - - +3 pitting edema right lower extremity below knee. +4 pitting edema left lower extrem below knee Skin: - - poorly healing wound left foot lateral aspect. Approx 1.5 inches in length by 0.5" width, clear exudate at the borders. wound bed is white with minimal sensation. Erythema noted to left lower extremity below knee to the foot. Neurological: Alert and Oriented x 3, NL Muscle Strength and Tone Result Diagrams: 12/21/19 06:23 12/21/19 06:23 Microbiology and Other Data: Microbiology 12/20/19 11:05 Aerobic Blood Culture - Preliminary Blood Venous No Growth Day 1 Anaerobic Blood Culture - Preliminary No Growth Day 1 Assess/Plan/Problems-Billing Assessment: Pt presents with hx of Afib, heart failure, aortic stenosis S/P AVR, HTN, hyperlipidemia, COPD, DM, ALL, BPH, and GELACIO. Pt is being admitted to hospital for Osteomyelitis, Hyponatremia, CHF, COPD, supratherapeutic INR. Pt admitted for IV antibiotics pending debridment - Patient Problems (1) Cellulitis Current Visit: No Status: Acute Code(s): L03.90 - CELLULITIS, UNSPECIFIED SNOMED Code(s): 149063705 Comment: -Pt has hx of osteomyelitis in left fifth metatarcel with partial amputation. Wound is poorly healing with surrounding cellulitis -Improving with abx (2) Chronic osteomyelitis of left foot Comment: -previous debridment by ortho 06/28/19 with wound vac jabari -Poor healing wound -previous polymicrobial infection -MRI shows Osteomyelitis in fifth metatarsal -Continue cefepime and vanco per ID pending cultures -Likely debridement on tuesday12/24/19 (3) CHF exacerbation Comment: -BNP 189 -Wheezing COPD vs CHF -Will treat with IV lasix (4) COPD with exacerbation Comment: - Continue prednisone - Continue duonebs - Continue Ventolin Inh - Continue Formetoral Fumar - Chest X-ray not diagnostic for cause of wheezing (5) Atrial fibrillation Current Visit: No Status: Chronic Code(s): I48.91 - UNSPECIFIED ATRIAL FIBRILLATION SNOMED Code(s): 42615433 Comment: - coumadin held for now for supratherapeutic INR 6.34. - monitor INR daily -Rate controlled off meds (6) Diabetes mellitus Comment: -Well controlled -HA1c 6.1 (10/01/19) -Will monitor blood glucose AC and HS with sliding scale coverage as needed (7) CLL (chronic lymphocytic leukemia) Current Visit: No Status: Acute Code(s): C91.90 - LYMPHOID LEUKEMIA, UNSPECIFIED NOT HAVING ACHIEVED REMISSION SNOMED Code(s): 10018992 Comment: - Stable (8) Hyponatremia Comment: - Na 120 did not improve with fluids likely from fluid overload - Worse than baseline - Stop fluids, continue lasix - Monitor for worsening fluid overload. (9) DVT prophylaxis Comment: -Supratherapeutic INR 6.34. -Hold coumadin until INR returns to normal level -No evidence of hemorrhage Status and Disposition: Inpatient for IV abx while waiting debridement Attending: Qi Galloway
[2019-12-21] MEDS ORDERED: Cefepime 2 GM in Dextrose(*) 2 GM/50 ML BAG IV SCH (14:00)
--- NOTE | 2019-12-21 17:25 | CONSULT ---
Consult Consult: Date of service: 12/21/19 Patient: GUZMAN BARTH /Age: 05 1935 84 Medical Record#: [id number] Admission Date: 12/20/19 Reason for Consultation: left leg cellulitis in a vasculopath Requesting Provider: Antelmo Arriaga [employer] (Infectious Disease) CC: Dr. Galicia, Holli Mendez [employer], Mookie Hill MD, Roosevelt Mccall MD HISTORY OF PRESENT ILLNESS: Mr. Barth is an 84-year-old male with a past medical history significant for atrial fibrillation, heart failure, aortic stenosis status post AVR, COPD, CLL, diabetes, BPH, GELACIO, hypertension, hyperlipidemia, who presented to the emergency department yesterday on recommendation of Dr. Mccall, Orthopedics given redness to his left lower extremity. The patient has had redness and swelling to his left foot for about 1.[address] Hill placed him on Bactrim about a week ago and has had no improvement. He also mentions that he had surgery on this foot in May. The patient reports he has been noticing some weight gain over the past several weeks and increase in shortness of breath. At home he has been self dosing his Lasix due to the weight gain. The patient reports left groin pain after a coughing episode one week ago. Given the cellulitis, the patient was started on vancomycin and cefepime and blood cultures were obtained. He was noted to be slightly anemic with a hemoglobin of 9.7 and 29, which is slightly below his baseline. PAST MEDICAL HISTORY: 1. Atrial fibrillation. 2. Heart failure. 3. Aortic stenosis, status post AVR. 4. COPD. 5. CLL. 6. Diabetes. 7. BPH. 8. GELACIO. 9. Hypertension. 10. Hyperlipidemia. PAST SURGICAL HISTORY: 1. TAVR. 2. Appendectomy. 3. Rotator cuff repair. 4. Deviated septum repair. 5. Left foot irrigation and debridement and placement of wound VAC. HOME MEDICATIONS: 1. Furosemide 20 mg p.o. b.i.d. 2. Magnesium 30 mg p.o. daily. 3. Prednisone 10 mg every other day. 4. Triamcinolone 1 cap topical b.i.d. 5. Magnesium oxide 400 mg p.o. daily. 6. Lipitor 20 mg p.o. daily. 7. Flomax 0.4 mg p.o. daily. 8. Aspirin 81 mg p.o. daily. 9. Albuterol 2 puffs inhalations q.4 hours p.r.n. 10. Vitamin D 5000 units p.o. daily. 11. Breo Ellipta 200/25 one puff inhalation daily. 12. Glucosamine 1000 mg p.o. daily. 13. Tylenol 500 to 1000 mg p.o. daily p.r.n. 14. Multivitamin 1 tab p.o. daily. 15. Vitamin C 500 mg p.o. daily. 16. Coumadin 6 mg p.o. Tuesday, Tuesday, , Tuesday. 17. Coumadin 3 mg p.o. Tuesday, Tuesday and Tuesday. 18. Losartan 100 mg p.o. daily. 19. Bactrim 800/160 one tab p.o. b.i.d. ALLERGIES: NUTS, PENICILLIN, RAMIPRIL. FAMILY HISTORY: Mother is from heart disease and father is from pancreatic cancer. SOCIAL HISTORY: The patient is a former smoker. The patient reports social drinking. The patient does not use drugs. 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 The patient lives with his . The patient is independent in his ADLs. The patient's , Lori, will be his healthcare proxy in the event he cannot make decisions for himself. The patient is a full code. REVIEW OF SYSTEMS: The patient reports shortness of breath, left groin pain, left knee pain, edema. The patient denies fever, anorexia, chest pain, nausea, vomiting, diarrhea, abdominal pain, dysuria, hematuria, dysphagia, weakness, visual disturbances, rash, lesions, anxiety. PHYSICAL EXAMINATION: Selected Entries 12/21/19 11:12 Temperature 98.7 F Temperature Oral Source Pulse Rate 64 Respiratory 20 Rate Blood Pressure 128/59 (mmHg) Blood Pressure 82 Mean O2 Sat by Pulse 94 Oximetry Patient on Room Yes Air Sitting up eating dinner. AAO x 3. NAD. RRR Expiratory wheeze bilateral, reduced lower lobe breath sounds Left groin is tender to palpation. 2+ pulses palpated the bilateral common femoral arteries 1+ pulses palpated the bilateral popliteal arteries. Pedal arteries are not palpable. There is hemosiderin staining of the bilateral lower legs in the "gaiter distribution" The left lower leg is erythematous and swollen. In particular the left foot is tense. There is a wound overlying the lateral left forefoot. IMAGING: : 1935 Age: 84 Sex: M Location: EMERGENCY DEPARTMENT Exam Date: 12/20/19 1042 ADM Status: REG ER Order Information: VL LOWER EXT VEINS BILATERAL INDICATION: Left lower leg swelling and erythema cellulitis evaluate for DVT. History of trauma. COMPARISON: Comparison is made with a prior study from June 07, 2019. TECHNIQUE: Multiple real-time, color flow and Doppler tracings of both lower extremities were obtained. FINDINGS: The common femoral, femoral, profunda femoral and popliteal veins all demonstrate normal compressibility, augmentation with compression and phasic response with respiration. The posterior tibial and peroneal veins demonstrate normal compressibility and augmentation with compression. There is a hypoechoic mass present in the proximal left thigh inguinal region measuring 7.7 x 3.4 x 4.0 cm in size possibly representing a hematoma. Recommend clinical correlation. IMPRESSION: 1. NO EVIDENCE FOR DEEP VENOUS THROMBOSIS. 2. NONSPECIFIC MASS IN THE LEFT INGUINAL REGION POSSIBLY A HEMATOMA GIVEN THE PATIENT'S HISTORY OF TRAUMA ALTHOUGH NONSPECIFIC. RECOMMEND CLINICAL CORRELATION. Patient Name: GUZMAN BARTH Medical Record#: [id number] Ordering Physician: [facility] [id number] : 1935 Age: 83 Sex: M Location: CARDIAC CATHETERIZATION LAB Exam Date: 10/26/18 ADM Status: REG [facility] Order Information: INTERVENTIONAL ANGIOGRAPHY Accession Number: [id number] Procedure(s) performed: 1. Diagnostic arteriography of the pelvis and left lower extremity. 2. Percutaneous minx closure device to the right common femoral arteriotomy. Date of service: October 26, 2018 SUMMARY OF PROCEDURE, IMAGING FINDINGS AND INTERVENTIONS PERFORMED: 1. Diagnostic studies performed: * Percutaneous access was obtained with ultrasound guidance in the right common femoral artery in the antegrade direction towards the foot. A sonographic image was saved.. Unfortunately, a sheath could not be advanced into the left common femoral artery and this access site was not utilized further. A sonographic image was saved. * Percutaneous access was obtained with ultrasound guidance in the right common femoral artery in the antegrade direction towards the foot. A sonographic image was saved. * Catheter arteriography, with the catheter tip located within the lumen of the following arteries, was performed at the right external iliac artery, aorta, left common femoral artery and left superficial femoral artery * Catheter arteriography was performed of the lower abdominal aorta and bilateral iliac arterial system and all arteries of the left lower extremity as far as the mid- level left lower leg including the proximal left anterior tibial artery, posterior tibial artery and peroneal artery. * Arteriography was performed through the side arm of the access sheath to image the distal right external iliac artery, right common femoral artery and proximal superficial femoral artery and femoral profundus. 2. Interpretation of diagnostic studies performed: * Atherosclerosis at the right common femoral artery is not well calcified but appears to cause significant stenosis to prevent right to left sheath advancement. * Mild calcified atherosclerosis in the mid-level and distal left superficial femoral artery causing up to 50% degree stenosis. * Incidentally noted is a high bifurcating left anterior tibial artery. * The left tibioperoneal trunk is stenotic and there is near complete occlusion of the proximal most left peroneal artery and posterior tibial artery. On delayed phase imaging there is reconstituted flow in the left peroneal artery but no filling is seen in the distal left posterior tibial artery. * Arteriography performed for the purpose of deploying a percutaneous arterial closure device demonstrates adequately patent right external iliac artery, common femoral artery and proximal superficial femoral artery and femoral profundus. 3. Surgical interventions performed: * Closure of the right common femoral artery was achieved with a Minx closure device followed by 15 minutes of gentle manual pressure. Plan: 1. Clinical and imaging follow-up according to standard Interventional Radiology protocol. 2. As was discussed with the patient's family post procedure, alternative access points will be considered for left infrapopliteal revascularization. <Electronically signed by Tru Hancock MD in [place]> 10/26/18 3483 Dictated By: Tru Hancock MD Order Information: VL ANK/BRACHIAL INDICES Accession Number: [id number] Indication: Nonhealing foot wound with marginal vascularity. Ankle-brachial index on the right is 1.40. Ankle-brachial index on the left is 0.87. Findings are similar to that identified previously. Monophasic waveform are noted in the left posterior tibial artery and biphasic waveform is noted in the left dorsalis pedis artery. Toe brachial index on the right is 0.74 which is at the lower limits of normal. Total brachial index on the left is 0.47. IMPRESSION: Moderately abnormal left ankle-brachial index of 0.87 and left toe brachial index of 0.47. 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 Review of his 10/26/2018 left leg angiogram demonstrated single vessel runoff provided by a high branching anterior tibial artery. There is no significant filling seen in the left peroneal or posterior tibial arteries. There is evidence of long-term lower leg venous insufficiency as indicated by hemosiderin staining. More acutely, the left lower leg is swollen and the skin is tense. Recommendations: 1. Left leg arterial duplex sonography with attention to the infrapopliteal arteries. 2. I recommend definitely left, preferably bilateral, lower extremity stocking compression therapy. I think reducing the swelling in the left lower leg will contribute greatly to improved wound healing. 3. The patient may benefit from repeat arteriography of the left lower leg with possible revascularization of the infrapopliteal arteries. This does not need to be done as an inpatient and the patient can return on an outpatient basis if his left foot wound continues to not heal.
[2019-12-21] MEDS: Acetaminophen TAB* 325 MG PO PRN (21:22)
[2019-12-22 05:48] LABS: ABS Basophils 0.1 10^3/ul (0-0.2); ABS Eosinophils 0.1 10^3/ul (0-0.6); ABS Lymphocytes 0.5 10^3/ul (1.0-4.8); ABS Monocytes 1.1 10^3/ul (0-0.8); ABS Neutrophils 2.4 10^3/ul (1.5-7.7); Eosinophil % 2.1 %; Hematocrit 27 % (42-52); Hemoglobin 9.2 g/dL (14.0-18.0); Lymphocyte % 11.4 %; Mean Corpuscular HGB Conc 34 g/dL (31-36); Mean Corpuscular Hemoglobin 27 pg (27-31); Mean Corpuscular Volume 81 fL (80-94); Mean Platelet Volume 6.6 fL (7.4-10.4); Platelet Count 176 10^3/uL (150-450); Red Blood Count 3.37 10^6 /uL (4.18-5.48); Red Cell Distribution Width 20 % (10-15); White Blood Count 4.1 10^3/uL (3.5-10.8)
[2019-12-22] MEDS ORDERED: Vancomycin Trough Check NOTE FOLLOW UP ONE (06:00)
[2019-12-22 06:11] LABS: BUN/Creatinine Ratio 22.2 (8-20); EGFR African American 78.8 (>60); EGFR Non-African American 65.1 (>60); Potassium 4.3 mmol/L (3.5-5.0)
[2019-12-22 06:13] LABS: INR 3.76 (0.82-1.09)
[2019-12-22 06:15] LABS: Vancomycin Trough 10.7 mcg/mL
[2019-12-22] MEDS: Vancomycin(*) 1,000 MG in NS 0.9% 250 ML* 250 ML IV SCH (07:01)
[2019-12-22] MEDS: Mometasone/Formoter 200/5 MDI INH SCH ×2 (07:52→20:25)
[2019-12-22] MEDS: Insulin LISPRO* 1 UNITS UNIT SUBCUT SCH ×3 (08:03→18:04)
[2019-12-22] MEDS: Atorvastatin* 20 MG TAB PO SCH (09:34)
[2019-12-22] MEDS: Aspirin EC TAB* 81 MG TAB.EC PO SCH (09:34)
[2019-12-22] MEDS: Torsemide TAB* 20 MG PO SCH (09:34)
[2019-12-22] MEDS: Tamsulosin CAP* 0.4 MG PO SCH (09:34)
[2019-12-22] MEDS: Magnesium Oxide TAB* 400 MG PO SCH (09:34)
[2019-12-22] MEDS: Losartan TAB* 25 MG PO SCH (09:34)
[2019-12-22] MEDS: Cefepime 2 GM in Dextrose(*) 2 GM/50 ML BAG IV SCH ×2 (09:35→21:46)
--- NOTE | 2019-12-22 10:47 | PN ---
Subjective Date of Service: 12/22/19 Interval History: Patient states he feels about the same today. Patient has minor pain in leg. Patient denies SOB, but states that he was never SOB. Patient denies CP, SOB, F/ C, N/V, abdominal pain, diarrhea, or other pain. Family History: Unchanged from Admission Social History: Unchanged from Admission Past Medical History: Unchanged from Admission Objective Active Medications: Acetaminophen (Tylenol Tab*) 650 mg PO Q6H PRN PRN Reason: PAIN - MILD Last Admin: 12/21/19 21:22 Dose: 650 mg Albuterol (Ventolin Hfa Inhaler*) 2 puff INH Q4H PRN PRN Reason: SHORTNESS OF BREATH Last Admin: 12/21/19 07:55 Dose: 2 puff Albuterol/Ipratropium (Duoneb (Albuterol 2.5 Mg/Ipratropium 0.5 Mg)) 1 neb INH [id number] AWAKE PRN PRN Reason: sob/wheexing Last Admin: 12/21/19 09:49 Dose: 1 neb Aspirin (Aspirin Ec Tab*) 81 mg PO DAILY [facility] Last Admin: 12/22/19 09:34 Dose: 81 mg Atorvastatin Calcium (Lipitor*) 20 mg PO DAILY [facility] Last Admin: 12/22/19 09:34 Dose: 20 mg Dextrose (D50w Syringe 50 Ml*) 12.5 gm IV PUSH .FOR FS < 60 - SS PRN PRN Reason: FS < 60 Cefepime HCl (Maxipime 2 Gm In Dextrose Duplex (*)) 2 gm in 50 mls @ 100 mls/ hr IV Q12H [facility] Last Admin: 12/22/19 09:35 Dose: 100 mls/hr Vancomycin HCl 1,250 mg/ (Sodium Chloride) 250 mls @ 166.667 mls/hr IVPB Q12H [facility] Insulin Human Lispro (Humalog*) 0 units SUBCUT AC [facility]; Protocol Last Admin: 12/22/19 08:03 Dose: Not Given Losartan Potassium (Cozaar Tab*) 100 mg PO DAILY [facility] Last Admin: 12/22/19 09:34 Dose: 100 mg Magnesium Oxide (Magox 400 Tab*) 400 mg PO DAILY [facility] Last Admin: 12/22/19 09:34 Dose: 400 mg Mometasone Furoate/Formoterol Fumar (Dulera 200/5 Mdi*) 2 puff INH BID [facility] Last Admin: 12/22/19 07:52 Dose: 2 puff Pharmacy Consult (Vancomycin Per Pharmacy*) 1 note FOLLOW UP .VANC PER PHARMACY [facility]; Protocol Pharmacy Profile Note (Vancomycin Trough Check) 1 note FOLLOW UP 529 ONE Stop: 12/24/19 05:31 Prednisone (Deltasone 5 Mg Tab) 10 mg PO EVERY OTHER DAY [facility] Last Admin: 12/22/19 09:34 Dose: 10 mg Tamsulosin HCl (Flomax Cap*) 0.4 mg PO DAILY [facility] Last Admin: 12/22/19 09:34 Dose: 0.4 mg Torsemide (Demadex*) 40 mg PO DAILY [facility] Last Admin: 12/22/19 09:34 Dose: 40 mg Tramadol HCl (Ultram*) 50 mg PO Q6H PRN PRN Reason: PAIN - MODERATE Last Admin: 12/20/19 23:17 Dose: 50 mg Vital Signs - 8 hr 12/22/19 12/22/19 03:02 07:15 Temperature 98.9 F 97.9 F Pulse Rate 63 52 Respiratory 20 20 Rate Blood Pressure 148/70 141/68 (mmHg) O2 Sat by Pulse 95 100 Oximetry Oxygen Devices in Use Now: Nasal Cannula Appearance: Patient is an 84yo male who appears stated age and is sitting in the bed in [facility]. Eyes: No Scleral Icterus, PERRLA Ears/Nose/Mouth/Throat: NL Teeth, Lips, Gums, Clear Oropharnyx, Mucous Membranes Moist Neck: NL Appearance and Movements; NL JVP, Trachea Midline Respiratory: Symmetrical Chest Expansion and Respiratory Effort, Clear to Auscultation Cardiovascular: NL Sounds; No Murmurs; No JVD, RRR, - - 3+ RLE edema and 4+ LLE edema. 1+ pulses in B/L DP and PT areas. Abdominal: NL Sounds; No Tenderness; No Distention, No Hepatosplenomegaly Lymphatic: No Cervical Adenopathy Extremities: No Clubbing, Cyanosis Skin: No Nodules or Sclerosis, - - Venous stasis changes in B/L LE. Neurological: Alert and Oriented x 3, NL Muscle Strength and Tone, - - CN II- XII intact. Result Diagrams: 12/22/19 05:30 12/22/19 05:30 Microbiology and Other Data: Microbiology 12/20/19 11:05 Aerobic Blood Culture - Preliminary Blood Venous No Growth Day 1 Anaerobic Blood Culture - Preliminary No Growth Day 1 Assess/Plan/Problems-Billing Assessment: Pt presents with hx of Afib, heart failure, aortic stenosis S/P AVR, HTN, hyperlipidemia, COPD, DM, ALL, BPH, and GELACIO. Pt is being admitted to hospital for Osteomyelitis, Hyponatremia, CHF, COPD, supratherapeutic INR. Pt admitted for IV antibiotics pending debridment - Patient Problems (1) Bradycardia Current Visit: No Status: Acute Priority: Medium Code(s): R00.1 - BRADYCARDIA, UNSPECIFIED SNOMED Code(s): 54382367 Comment: - Bradycardic in sleep overnight - No waking bradycardia or symptoms - No indication for further testing or intervention at this time. (2) CHF exacerbation Current Visit: No Status: Acute Priority: High Code(s): I50.9 - HEART FAILURE, UNSPECIFIED SNOMED Code(s): 129781400 Comment: - Acute on chronic HFpEF - BNP 189 - Wheezing either related to COPD vs CHF - Improvement with IV lasix, transition to Torsemide at dosing equivalent to home dose - Likely cause of hyponatremia. (3) Cellulitis Current Visit: No Status: Acute Code(s): L03.90 - CELLULITIS, UNSPECIFIED SNOMED Code(s): 900438108 Comment: - History of osteomyelitis in left fifth metatarcel with partial amputation. - Wound is poorly healing with surrounding cellulitis - Improving with Cefepime/Vanco (Both 2/5-?) - Wound culture pending. (4) Chronic osteomyelitis of left foot Current Visit: No Status: Acute Code(s): M86.672 - OTHER CHRONIC OSTEOMYELITIS, LEFT ANKLE AND FOOT SNOMED Code(s): 1944445193715977 Comment: - Previous debridment by ortho 06/28/19 with 5th ray amputation - Poor healing wound - Previous polymicrobial infection - MRI shows Osteomyelitis in fifth metatarsal, possibly extending to 3rd and 4th metatarsals. - Continue cefepime and vanco per ID pending cultures - Likely debridement on tuesday12/24/19 (5) Diabetes mellitus Current Visit: No Status: Acute Code(s): E11.9 - TYPE 2 DIABETES MELLITUS WITHOUT COMPLICATIONS SNOMED Code(s): 30608311 Comment: -Well controlled -HA1c 6.1 (10/01/19) -Will monitor blood glucose AC and HS with sliding scale coverage as needed (6) Hyponatremia Current Visit: No Status: Acute Code(s): E87.1 - HYPO-OSMOLALITY AND HYPONATREMIA SNOMED Code(s): 84737429 Comment: - Na 120 did not improve with fluids. - Likely from fluid overload, improved slightly with Lasix IV - Worse than baseline - Start Torsemide at home dose equivalent - Monitor, avoid overcorrection (7) Atrial fibrillation Current Visit: No Status: Chronic Code(s): I48.91 - UNSPECIFIED ATRIAL FIBRILLATION SNOMED Code(s): 44432667 Comment: - Coumadin held for now for supratherapeutic INR - monitor INR daily - Rate controlled off meds - Consider DOAC post-op (8) HTN (hypertension) Current Visit: No Status: Chronic Code(s): I10 - ESSENTIAL (PRIMARY) HYPERTENSION SNOMED Code(s): 08167472 Comment: - Controlled - Continue losartan and start torsemide (9) DVT prophylaxis Current Visit: No Status: Acute Code(s): BNX3686 - SNOMED Code(s): 404476578 Comment: -Supratherapeutic INR up to 6.96, now at 3.76 -Hold coumadin until INR returns to normal level -No evidence of hemorrhage (10) Full code status Current Visit: No Status: Acute Code(s): Z78.9 - OTHER SPECIFIED HEALTH STATUS SNOMED Code(s): 435869082 Status and Disposition: Inpatient for IV abx while waiting debridement
[2019-12-22] MEDS ORDERED: Vancomycin(*) 1,250 MG in NS 0.9% 250 ML* 250 ML IVPB SCH (18:00)
[2019-12-23] MEDS: traMADol TAB* 50 MG PO PRN ×3 (02:05→23:16)
[2019-12-23 04:38] LABS: ABS Eosinophils 0.1 10^3/ul (0-0.6); ABS Lymphocytes 0.7 10^3/ul (1.0-4.8); ABS Monocytes 0.8 10^3/ul (0-0.8); ABS Neutrophils 2.4 10^3/ul (1.5-7.7); Eosinophil % 2.2 %; Hematocrit 26 % (42-52); Hemoglobin 9.1 g/dL (14.0-18.0); Lymphocyte % 16.7 %; Mean Corpuscular HGB Conc 34 g/dL (31-36); Mean Corpuscular Hemoglobin 28 pg (27-31); Mean Corpuscular Volume 80 fL (80-94); Mean Platelet Volume 6.7 fL (7.4-10.4); Platelet Count 190 10^3/uL (150-450); Red Cell Distribution Width 20 % (10-15)
[2019-12-23 04:51] LABS: INR 2.52 (0.82-1.09)
[2019-12-23 04:53] LABS: BUN/Creatinine Ratio 27.5 (8-20); Calcium 8.2 mg/dL (8.6-10.3); EGFR African American 84.2 (>60); EGFR Non-African American 69.6 (>60)
[2019-12-23] MEDS: Atorvastatin* 20 MG TAB PO SCH (07:44)
[2019-12-23] MEDS: Tamsulosin CAP* 0.4 MG PO SCH (07:44)
[2019-12-23] MEDS: Magnesium Oxide TAB* 400 MG PO SCH (07:44)
[2019-12-23] MEDS: Aspirin EC TAB* 81 MG TAB.EC PO SCH (07:44)
[2019-12-23] MEDS: Insulin LISPRO* 1 UNITS UNIT SUBCUT SCH ×3 (07:46→17:34)
[2019-12-23] MEDS: Torsemide TAB* 20 MG PO SCH (07:46)
[2019-12-23] MEDS: Losartan TAB* 25 MG PO SCH (07:46)
[2019-12-23] MEDS: Mometasone/Formoter 200/5 MDI INH SCH ×2 (07:47→19:54)
--- NOTE | 2019-12-23 08:09 | PN ---
Subjective Date of Service: 12/23/19 Interval History: Mr. Redmond is feeling fine this morning. He did have some LLE cramping last night , but does think that he pulled a groin muscle last week. He reports high urine output yesterday. He thinks the edema in his RLE is significantly improved, and edema in the LLE is close to his recent baseline. Denies CP, SOB, N/V, dizziness. Nursing reports soft pressure this morning. Family History: Unchanged from Admission Social History: Unchanged from Admission Past Medical History: Unchanged from Admission Objective Active Medications: Acetaminophen (Tylenol Tab*) 650 mg PO Q6H PRN PAIN - MILD Albuterol (Ventolin Hfa Inhaler*) 2 puff INH Q4H PRN SHORTNESS OF BREATH Albuterol/Ipratropium (Duoneb (Albuterol 2.5 Mg/Ipratropium 0.5 Mg)) 1 neb INH [id number] AWAKE PRN sob/wheexing Aspirin (Aspirin Ec Tab*) 81 mg PO DAILY SARINA Atorvastatin Calcium (Lipitor*) 20 mg PO DAILY [facility] Dextrose (D50w Syringe 50 Ml*) 12.5 gm IV PUSH .FOR FS < 60 - SS PRN FS < 60 Cefepime HCl (Maxipime 2 Gm In Dextrose Duplex (*)) 2 gm in 50 mls @ 100 mls/ hr IV Q12H SARINA Insulin Human Lispro (Humalog*) 0 units SUBCUT AC SARINA; Protocol Losartan Potassium (Cozaar Tab*) 100 mg PO DAILY SARINA Magnesium Oxide (Magox 400 Tab*) 400 mg PO DAILY SARINA Mometasone Furoate/Formoterol Fumar (Dulera 200/5 Mdi*) 2 puff INH BID SARINA Prednisone (Deltasone 5 Mg Tab) 10 mg PO EVERY OTHER DAY SARINA Tamsulosin HCl (Flomax Cap*) 0.4 mg PO DAILY SARINA Torsemide (Demadex*) 40 mg PO DAILY SARINA Tramadol HCl (Ultram*) 50 mg PO Q6H PRN PAIN - MODERATE Vital Signs - 8 hr 12/23/19 12/23/19 12/23/19 02:05 03:15 07:44 Temperature 97.2 F Pulse Rate 52 Respiratory 18 16 18 Rate Blood Pressure 108/52 (mmHg) O2 Sat by Pulse 99 Oximetry 12/23/19 12/23/19 07:45 07:50 Temperature Pulse Rate 54 Respiratory 18 18 Rate Blood Pressure (mmHg) O2 Sat by Pulse 92 Oximetry Oxygen Devices in Use Now: None Appearance: Elderly male sitting in bed in NAD Ears/Nose/Mouth/Throat: Mucous Membranes Moist Neck: NL Appearance and Movements; NL JVP, Trachea Midline Respiratory: Symmetrical Chest Expansion and Respiratory Effort, Clear to Auscultation Cardiovascular: NL Sounds; No Murmurs; No JVD, RRR Extremities: - - +2 pitting LLE Neurological: Alert and Oriented x 3 Lines/Tubes/Other Access: Clean, Dry and Intact Peripheral IV Nutrition: Taking PO's Result Diagrams: 12/23/19 04:09 12/23/19 04:09 Assess/Plan/Problems-Billing Assessment: Mr. Redmond is an 84 yo M with PMH of afib, HFpEF, aortic stenosis s/p AVR, HTN, HLD, COPD, DM, ALL, BPH, GELACIO; sent to the ED by Dr. Mccall because of concern for cellulitis and was found to have recurrent osteomyelitis, hyponatremia, CHF. - Patient Problems (1) Cellulitis Code(s): L03.90 - CELLULITIS, UNSPECIFIED Comment: - Presented with LLE erythema - History of osteomyelitis in left fifth metatarcel with partial amputation - Wound is poorly healing with surrounding cellulitis - Wound culture pending - Vanco d/c'd d/t negative MRSA PCR - Continue cefepime (day 4/?) (2) Chronic osteomyelitis of left foot Code(s): M86.672 - OTHER CHRONIC OSTEOMYELITIS, LEFT ANKLE AND FOOT Comment: - Previous polymicrobial infection - Debridment by Ortho 06/28/19 with 5th metatarsal amputation - Poor healing wound - MRI shows osteomyelitis in fifth metatarsal, possibly extending to 3rd and 4th metatarsals - Appreciate ID consult - Appreciate Ortho consult; likely debridement 12/24 - Continue cefepime (day 4/?) (3) Acute on chronic heart failure with preserved ejection fraction (HFpEF) Code(s): I50.33 - ACUTE ON CHRONIC DIASTOLIC (CONGESTIVE) HEART FAILURE Comment: - Previously had wheezing on exam; COPD vs CHF - BNP 189 - Likely cause of hyponatremia - Patient reports he frequently experiences weight gain at home while taking diuretics; likely needs increased dosing at home - Improvement with IV furosemide; transition to torsemide at dosing equivalent to home dose - Continue torsemide (4) Hyponatremia Code(s): E87.1 - HYPO-OSMOLALITY AND HYPONATREMIA Comment: - Na 120 on admission, did not improve with IV - Likely from fluid overload, improved slightly with diuresis - Monitor, avoid overcorrection - Continue torsemide (5) Bradycardia Code(s): R00.1 - BRADYCARDIA, UNSPECIFIED Comment: - Bradycardic while asleep; no waking bradycardia or symptoms - No indication for further testing or intervention at this time (6) PVD (peripheral vascular disease) Code(s): I73.9 - PERIPHERAL VASCULAR DISEASE, UNSPECIFIED Comment: - Abnormal ABIs on left in the past - LLE doppler showing no flow in mid-posterior tibial artery, other arteries with monophasic flow - Appreciate IR consult; recommends bilat compression stockings - No need for acute revascularization, but should have outpatient if he continues to have poor wound healing (7) Atrial fibrillation Code(s): I48.91 - UNSPECIFIED ATRIAL FIBRILLATION Comment: - Rate controlled off meds - Consider DOAC postop - Hold Coumadin for possible debridement tomorrow (8) COPD (chronic obstructive pulmonary disease) Code(s): J44.9 - CHRONIC OBSTRUCTIVE PULMONARY DISEASE, UNSPECIFIED Comment: - Not in exacerbation - Continue Dulera (9) Type 2 diabetes mellitus Comment: - Well controlled - A1c 6.1% in September - Not on home medication - Continue Lispro SS (10) HTN (hypertension) Code(s): I10 - ESSENTIAL (PRIMARY) HYPERTENSION Comment: - Normotensive - Continue losartan, torsemide (11) HLD (hyperlipidemia) Code(s): E78.5 - HYPERLIPIDEMIA, UNSPECIFIED Comment: - Continue atorvastatin (12) GELACIO (obstructive sleep apnea) Code(s): G47.33 - OBSTRUCTIVE SLEEP APNEA (ADULT) (PEDIATRIC) Comment: - Oxygen at night (13) BPH (benign prostatic hyperplasia) Code(s): N40.0 - BENIGN PROSTATIC HYPERPLASIA WITHOUT LOWER URINRY TRACT SYMP Comment: - Continue tamsulosin (14) CLL (chronic lymphocytic leukemia) Code(s): C91.90 - LYMPHOID LEUKEMIA, UNSPECIFIED NOT HAVING ACHIEVED REMISSION Comment: - Stable (15) DVT prophylaxis Comment: - SCDs; resume Coumadin once cleared by Ortho (16) Full code status Code(s): Z78.9 - OTHER SPECIFIED HEALTH STATUS Comment: Status and Disposition: Inpatient for IV abx while waiting debridement. Will likely need assisted IV abx pending recommendations from ID. Attending: Sushila Yao
[2019-12-23] MEDS: Acetaminophen TAB* 325 MG PO PRN ×2 (10:00→20:53)
[2019-12-23] MEDS: Cefepime 2 GM in Dextrose(*) 2 GM/50 ML BAG IV SCH ×2 (10:01→21:54)
--- NOTE | 2019-12-23 10:28 | PN ---
PROGRESS NOTE: DATE OF VISIT: 12/23/19 HISTORY: Mr. Redmond is an 84-year-old gentleman who was admitted a few days ago with cellulitis and massive swelling of his left leg. He is status post partial ray resection of left fifth metatarsal, which had very slow wound healing and had finally healed over with an intact skin envelope about a week before his swelling came on. He has had an extensive workup of the left lower extremity with DVT, arterial study, and MRI. He has single vessel supply to the left foot and an MRI that shows some residual osteomyelitis of the fifth phalanx and fifth proximal metatarsal, possible early changes in the fourth, although this was outside the area of the initial infection zone. Mr. Redmond appears to have had rapid onset of massive cellulitis, left leg, possibly from retained osteomyelitis and a closed skin envelope. Plan at this point will be repeat debridement with fifth toe sacrifice and base of the fifth metatarsal. [id number]/CPS #: [id number] NIXON
[2019-12-24] MEDS ORDERED: Vancomycin Trough Check NOTE FOLLOW UP ONE (05:30)
[2019-12-24 07:35] LABS: ABS Eosinophils 0.2 10^3/ul (0-0.6); ABS Lymphocytes 0.8 10^3/ul (1.0-4.8); ABS Monocytes 0.7 10^3/ul (0-0.8); ABS Neutrophils 3.2 10^3/ul (1.5-7.7); Eosinophil % 4.9 %; Hematocrit 30 % (42-52); Hemoglobin 10.2 g/dL (14.0-18.0); Lymphocyte % 15.4 %; Mean Corpuscular HGB Conc 34 g/dL (31-36); Mean Corpuscular Hemoglobin 27 pg (27-31); Mean Corpuscular Volume 81 fL (80-94); Mean Platelet Volume 6.9 fL (7.4-10.4); Platelet Count 218 10^3/uL (150-450); Red Blood Count 3.71 10^6 /uL (4.18-5.48); Red Cell Distribution Width 20 % (10-15)
[2019-12-24 07:44] LABS: INR 1.82 (0.82-1.09)
[2019-12-24 07:45] LABS: BUN/Creatinine Ratio 30.8 (8-20); Calcium 8.7 mg/dL (8.6-10.3); EGFR Non-African American 79.4 (>60); Potassium 4.3 mmol/L (3.5-5.0)
[2019-12-24] MEDS: Mometasone/Formoter 200/5 MDI INH SCH ×2 (08:17→19:34)
--- NOTE | 2019-12-24 08:20 | PN ---
Subjective Date of Service: 12/24/19 Interval History: Mr. Redmond is feeling okay today. He continued to have left upper leg cramping last night. Ice was helpful and he has not had any further cramping this morning. Denies CP, SOB, N/V. No concerns from nursing. Family History: Unchanged from Admission Social History: Unchanged from Admission Past Medical History: Unchanged from Admission Objective Active Medications: Acetaminophen (Tylenol Tab*) 650 mg PO Q6H PRN PAIN - MILD Albuterol (Ventolin Hfa Inhaler*) 2 puff INH Q4H PRN SHORTNESS OF BREATH Albuterol/Ipratropium (Duoneb (Albuterol 2.5 Mg/Ipratropium 0.5 Mg)) 1 neb INH [id number] AWAKE PRN sob/wheezing Aspirin (Aspirin Ec Tab*) 81 mg PO DAILY SARINA Atorvastatin Calcium (Lipitor*) 20 mg PO DAILY [facility] Dextrose (D50w Syringe 50 Ml*) 12.5 gm IV PUSH .FOR FS < 60 - SS PRN FS < 60 Cefepime HCl (Maxipime 2 Gm In Dextrose Duplex (*)) 2 gm in 50 mls @ 100 mls/ hr IV Q12H SARINA Insulin Human Lispro (Humalog*) 0 units SUBCUT AC SARINA; Protocol Losartan Potassium (Cozaar Tab*) 100 mg PO DAILY SARINA Magnesium Oxide (Magox 400 Tab*) 400 mg PO DAILY SARINA Mometasone Furoate/Formoterol Fumar (Dulera 200/5 Mdi*) 2 puff INH BID SARINA Prednisone (Deltasone 5 Mg Tab) 10 mg PO EVERY OTHER DAY SARINA Tamsulosin HCl (Flomax Cap*) 0.4 mg PO DAILY [facility]INA Torsemide (Demadex*) 40 mg PO DAILY [facility]INA Tramadol HCl (Ultram*) 50 mg PO Q6H PRN PAIN - MODERATE Vital Signs - 8 hr 12/24/19 02:35 Temperature 97.2 F Pulse Rate 49 Respiratory 18 Rate Blood Pressure 144/48 (mmHg) O2 Sat by Pulse 100 Oximetry Oxygen Devices in Use Now: None Appearance: Elderly male lying in bed in NAD Ears/Nose/Mouth/Throat: Mucous Membranes Moist Neck: NL Appearance and Movements; NL JVP, Trachea Midline Respiratory: Symmetrical Chest Expansion and Respiratory Effort, Clear to Auscultation Cardiovascular: NL Sounds; No Murmurs; No JVD, RRR Abdominal: NL Sounds; No Tenderness; No Distention Extremities: - - +2 pitting LLE Skin: - - Erythema LLE Neurological: Alert and Oriented x 3 Lines/Tubes/Other Access: Clean, Dry and Intact Peripheral IV Nutrition: Taking PO's Result Diagrams: 12/24/19 06:57 12/24/19 06:57 Assess/Plan/Problems-Billing Assessment: Mr. Redmond is an 84 yo M with PMH of afib, HFpEF, aortic stenosis s/p AVR, HTN, HLD, COPD, DM, ALL, BPH, GELACIO; sent to the ED by Dr. Mccall because of concern for cellulitis and was found to have recurrent osteomyelitis, hyponatremia, CHF. - Patient Problems (1) Cellulitis Code(s): L03.90 - CELLULITIS, UNSPECIFIED Comment: - Presented with LLE erythema - History of osteomyelitis in left fifth metatarcel with partial amputation - Wound is poorly healing with surrounding cellulitis - Wound culture pending - Vanco d/c'd - Continue cefepime (day 5/?) (2) Chronic osteomyelitis of left foot Code(s): M86.672 - OTHER CHRONIC OSTEOMYELITIS, LEFT ANKLE AND FOOT Comment: - Previous polymicrobial infection - Debridment by Ortho 06/28/19 with 5th metatarsal amputation - Poor healing wound - MRI shows osteomyelitis in fifth metatarsal, possibly extending to 3rd and 4th metatarsals - Appreciate ID consult - Appreciate Ortho consult; OR today for debridement - Continue cefepime (day 5/?) (3) Acute on chronic heart failure with preserved ejection fraction (HFpEF) Code(s): I50.33 - ACUTE ON CHRONIC DIASTOLIC (CONGESTIVE) HEART FAILURE Comment: - Previously had wheezing on exam; COPD vs CHF - BNP 189 - Likely cause of hyponatremia - Patient reports he frequently experiences weight gain at home while taking diuretics; likely needs increased dosing at home - Improvement with IV furosemide; transition to torsemide at dosing equivalent to home dose - Continue torsemide (4) Hyponatremia Code(s): E87.1 - HYPO-OSMOLALITY AND HYPONATREMIA Comment: - Na 120 on admission, did not improve with IV - Likely from fluid overload, improving with diuresis - Monitor, avoid overcorrection - Continue torsemide (5) Bradycardia Code(s): R00.1 - BRADYCARDIA, UNSPECIFIED Comment: - Bradycardic while asleep; no waking bradycardia or symptoms - No indication for further testing or intervention at this time (6) PVD (peripheral vascular disease) Code(s): I73.9 - PERIPHERAL VASCULAR DISEASE, UNSPECIFIED Comment: - Abnormal ABIs on left in the past - LLE doppler showing no flow in mid-posterior tibial artery, other arteries with monophasic flow - Appreciate IR consult; recommends bilat compression stockings - No need for acute revascularization, but should have outpatient if he continues to have poor wound healing (7) Atrial fibrillation Code(s): I48.91 - UNSPECIFIED ATRIAL FIBRILLATION Comment: - Rate controlled off meds - Consider DOAC postop - Resume Coumadin tonight (8) COPD (chronic obstructive pulmonary disease) Code(s): J44.9 - CHRONIC OBSTRUCTIVE PULMONARY DISEASE, UNSPECIFIED Comment: - Not in exacerbation - Continue Dulera (9) Type 2 diabetes mellitus Comment: - Well controlled - A1c 6.1% in September - Not on home medication - Continue Lispro SS (10) HTN (hypertension) Code(s): I10 - ESSENTIAL (PRIMARY) HYPERTENSION Comment: - Normotensive - Continue losartan, torsemide (11) HLD (hyperlipidemia) Code(s): E78.5 - HYPERLIPIDEMIA, UNSPECIFIED Comment: - Continue atorvastatin (12) GELACIO (obstructive sleep apnea) Code(s): G47.33 - OBSTRUCTIVE SLEEP APNEA (ADULT) (PEDIATRIC) Comment: - 2L oxygen at night (13) BPH (benign prostatic hyperplasia) Code(s): N40.0 - BENIGN PROSTATIC HYPERPLASIA WITHOUT LOWER URINRY TRACT SYMP Comment: - Continue tamsulosin (14) CLL (chronic lymphocytic leukemia) Code(s): C91.90 - LYMPHOID LEUKEMIA, UNSPECIFIED NOT HAVING ACHIEVED REMISSION Comment: - Stable (15) DVT prophylaxis Comment: - SCDs; resume Coumadin tonight (16) Full code status Code(s): Z78.9 - OTHER SPECIFIED HEALTH STATUS Comment: Status and Disposition: Inpatient for IV abx and debridement today. Will likely need long term care social worker IV abx pending recommendations from ID. Attending: Sushila Yao
[2019-12-24 08:28] LABS: Vancomycin Trough 4.3 mcg/mL
[2019-12-24] MEDS: Magnesium Oxide TAB* 400 MG PO SCH (09:06)
[2019-12-24] MEDS: Atorvastatin* 20 MG TAB PO SCH (09:06)
[2019-12-24] MEDS: Torsemide TAB* 20 MG PO SCH (09:06)
[2019-12-24] MEDS: Aspirin EC TAB* 81 MG TAB.EC PO SCH (09:06)
[2019-12-24] MEDS: Tamsulosin CAP* 0.4 MG PO SCH (09:07)
[2019-12-24] MEDS: Losartan TAB* 25 MG PO SCH (09:07)
[2019-12-24] MEDS: Insulin LISPRO* 1 UNITS UNIT SUBCUT SCH ×4 (09:24→18:24)
--- NOTE | 2019-12-24 10:23 | PN ---
Progress Note - Progress Note Date of Service: 12/24/19 SOAP: Subjective: CC: Left foot infection HPI: Mr. Redmond is an 84 yo male with PMH significant for CHF, C Afib, HTN, DM2, COPD, GELACIO, BPH, CLL, s/p TAVR, HLD, and chronic left 5th metatarsal osteomyelitis s/p excision of distal metatarsal; who presented to the emergency room with left LE edema and LE erythema. Denies fever, chills, nausea, vomiting , and diarrhea. Continues to have bilateral LE edema, left > right; overall edema is improving. Reporting left hip pain today, able to ambulate on the leg. Has been having left hip pain for awhile, but worse over the past few days. Objective: Vital Signs - 8 hr 12/24/19 12/24/19 12/24/19 02:35 08:20 09:24 Temperature 97.2 F Pulse Rate 49 53 Respiratory 18 14 16 Rate Blood Pressure 144/48 (mmHg) O2 Sat by Pulse 100 94 Oximetry Physical Exam: General: NAD, sitting up on the side of the bed Neurological: Alert and Oriented HEENT: Moist MM Cardiovascular: Heart rate regular Respiratory: Lung sounds clear Abdominal: Bowel sounds present; ABD soft, non tender and non distended MSK: Full ROM of the left hip, mild discomfort with some movement in the lateral thigh. Mild tenderness with palpation of the left hip Skin: There is a superficial open area to the lateral aspect of the left foot, scant serous drainage. Laboratory Results - last 24 hr 12/24/19 12/24/19 12/24/19 06:57 06:57 08:13 WBC 5.0 RBC 3.71 L Hgb 10.2 L Hct 30 L MCV 81 MCH 27 MCHC 34 RDW 20 H Plt Count 218 MPV 6.9 L Neut % (Auto) 64.3 Lymph % (Auto) 15.4 Ellis % (Auto) 14.6 Eos % (Auto) 4.9 Baso % (Auto) 0.8 Absolute Neuts (auto) 3.2 Absolute Lymphs (auto) 0.8 L Absolute Monos (auto) 0.7 Absolute Eos (auto) 0.2 Absolute Basos (auto) 0.0 Absolute Nucleated RBC 0.0 Nucleated RBC % 0.0 INR (Anticoag Therapy) Sodium 126 L Potassium 4.3 Chloride 92 L Carbon Dioxide 28 Anion Gap 6 BUN 28 H Creatinine 0.91 Est GFR ( Amer) 96.0 Est GFR (Non-Af Amer) 79.4 BUN/Creatinine Ratio 30.8 H Glucose 89 POC Glucose (mg/dL) 94 Calcium 8.7 Vancomycin Trough 4.3 Microbiology 12/20/19 12:13 Aerobic Blood Culture - Preliminary Blood Venous No Growth Day 3 Anaerobic Blood Culture - Preliminary No Growth Day 3 12/20/19 11:05 Aerobic Blood Culture - Preliminary Blood Venous No Growth Day 3 Anaerobic Blood Culture - Preliminary No Growth Day 3 12/22/19 09:00 Skin and Soft Tissue MRSA/MSSA (PCR - Final Foot Left Mrsa Negative S.aureus Positive Gram Stain - Final 12/20/19 12:25 Urine Culture - Final Urine No Growth (<1,000 CFU/mL) Assessment: 1. Left LE cellulitis with possible osteomyelitis. Previously S/P proximal left 5th metatarsal excision in June 2019 for osteomyelitis. Cultures at that time polymicrobial; including pseudomonas, E coli, and enterococcus. Venous Doppler - No DVT. MRI with evidence of osteomyelitis at the distal 5th metatarsal, 5th phalanges, and the base of the 4th phalanges; no abscess or fluid collection. Elevated CRP on admission. Blood cultures with no growth, day 3. Afebrile and no leukocytosis. 2. Left hip pain. Negative log roll, full ROM with mild discomfort. Unable to lift left leg without leg strap cutter due to pain. Low suspicion for septic joint. 3. DM2 with peripheral neuropathy. 4. Venous insufficiency. Moderately reduced ABIs in June 2019. 5. History of left 5th metatarsal osteomyelitis. S/P excision left proximal metatarsal in June 2019 and received an extended course of IV ABX. Plan: Continue cefepime. Final recommendations will be based on tissue culture results from the OR and clinical course. Discussed with KO Umana.
[2019-12-24] MEDS: Cefepime 2 GM in Dextrose(*) 2 GM/50 ML BAG IV SCH ×2 (10:34→22:18)
[2019-12-24 10:48] LABS: C Reactive Protein 10.77 mg/L (<8.01)
[2019-12-24] MEDS: Acetaminophen TAB* 325 MG PO PRN ×2 (10:48→17:54)
[2019-12-24] MEDS: traMADol TAB* 50 MG PO PRN ×2 (11:52→17:54)
--- NOTE | 2019-12-24 12:52 | PN ---
Progress Note - Progress Note Date of Service: 12/24/19 Note: Pt seen at bedside due to complaint of left hip pain. This hip pain has been a chronic problem, but has been worsening over the past several days. On 12/06 he did have let hip xray which showed osteoarthritis, no fracture. Patient attributes this increasing to being immobile but to left foot infection. Usually his pain lessens with activity but it seems to worsen with activity at this point and he is unable to lift the hip without a leg inspector structural bonding due to pain in the lateral hip and groin. No reported swelling or redness. He does have left foot cellulitis possible osteomyelitis. His blood cultures have been negative. LLE: On exam the skin envelope is intact without any erythema. Moderate tenderness over the lateral aspect of the hip with no fluctuance. Unable to actively f/e at the hip or straight leg raise due to hip pain. Passively hip f/ e 0-80 with severe pain at 80 degrees. Negative log roll. Nontender to palpable femoral shaft distally, with exclusion of foot due to known infection. Will get an MRI of the hip to rule out fluid collection/ septic joint due to worsening pain and presence of foot infection but exam findings offer low suspicion for septic joint. Dr. Mccall made aware
[2019-12-24] MEDS ORDERED: Midazolam* 1 MG/ML 2 ML VIAL (2 MG) ONE (15:00)
[2019-12-24] MEDS ORDERED: Lidocaine 2% PF * 5 ML VIAL ONE ×2 (15:04→15:11)
[2019-12-24] MEDS ORDERED: Acetaminophen TAB* 325 MG PO PRN (15:30)
[2019-12-24] MEDS ORDERED: Ondansetron INJ* 2 MG/ML VIAL IV PRN (15:30)
[2019-12-24] MEDS ORDERED: oxyCODONE TAB* 5 MG TAB PO PRN (15:30)
[2019-12-24] MEDS ORDERED: Naloxone* 0.4 MG/ML 1 ML VIAL IV PRN (15:30)
[2019-12-24] MEDS ORDERED: Ketorolac INJ* 30 MG/ML 1 ML VIAL IV PRN (15:30)
[2019-12-24] MEDS ORDERED: fentaNYL* 50 MCG/ML 2 ML VIAL (100 MCG VIAL) IV PRN (15:30)
[2019-12-24] MEDS: Warfarin TAB(*) 4 MG PO SCH (17:55)
[2019-12-24] MEDS: Morphine INJ* 2 MG/ML 1 ML SYRINGE (TWO MG - NEW SYRINGE VERSION) IV PRN (18:59)
--- NOTE | 2019-12-25 01:56 | OP ---
DATE OF OPERATION: 12/24/19 - ROOM #[id number] DATE OF : 35 SURGEON: Roosevelt Mccall MD [facility] HELPER: Scott Breen PA-C PRE-OP DIAGNOSIS: Recurrent osteomyelitis left fifth toe and proximal left fifth metatarsal. POST-OP DIAGNOSIS: Recurrent osteomyelitis left fifth toe and proximal left fifth metatarsal. OPERATIVE PROCEDURE: Left fifth ray amputation. DESCRIPTION OF PROCEDURE: The patient was taken to the operating room where a longitudinal incision was made along the fifth metatarsal and then around the base of the fifth toe. The incision was carried down through the soft tissues to disarticulate the fifth toe and dissect around the base of the fifth metatarsal. The remaining bed was irrigated thoroughly. Hemostasis obtained after dropping the tourniquet. Cultures were sent as well. We closed the deep tissues with 2-0 Monocryl sutures, Prolene for the skin, and a compression dressing applied. [id number]/CPS #: [id number] MTDD
[2019-12-25] MEDS: Morphine INJ* 2 MG/ML 1 ML SYRINGE (TWO MG - NEW SYRINGE VERSION) IV PRN ×2 (02:50→07:49)
[2019-12-25 06:06] LABS: ABS Eosinophils 0.1 10^3/ul (0-0.6); ABS Lymphocytes 0.8 10^3/ul (1.0-4.8); ABS Monocytes 0.9 10^3/ul (0-0.8); Eosinophil % 1.6 %; Hematocrit 29 % (42-52); Hemoglobin 9.8 g/dL (14.0-18.0); Lymphocyte % 12.3 %; Mean Corpuscular HGB Conc 34 g/dL (31-36); Mean Corpuscular Hemoglobin 27 pg (27-31); Mean Corpuscular Volume 81 fL (80-94); Mean Platelet Volume 6.6 fL (7.4-10.4); Platelet Count 204 10^3/uL (150-450); Red Cell Distribution Width 20 % (10-15); White Blood Count 6.8 10^3/uL (3.5-10.8)
[2019-12-25 06:14] LABS: INR 1.68 (0.82-1.09)
[2019-12-25 06:27] LABS: BUN/Creatinine Ratio 27.4 (8-20); Calcium 8.6 mg/dL (8.6-10.3); EGFR African American 80.5 (>60); EGFR Non-African American 66.6 (>60); Potassium 4.4 mmol/L (3.5-5.0)
[2019-12-25] MEDS: Mometasone/Formoter 200/5 MDI INH SCH ×2 (07:34→19:55)
[2019-12-25] MEDS: Insulin LISPRO* 1 UNITS UNIT SUBCUT SCH ×3 (08:50→16:27)
[2019-12-25] MEDS: traMADol TAB* 50 MG PO PRN (09:21)
--- NOTE | 2019-12-25 09:51 | PN ---
Progress Note - Progress Note Date of Service: 12/25/19 SOAP: Subjective: resting comfortably in bed, moderate pain left foot, no significant complaints of hip pain, denies calf pain/SOB Objective: Vital Signs Temp Pulse Resp BP Pulse Ox 97.9 F 59 18 112/50 90 12/25/19 07:16 12/25/19 07:39 12/25/19 09:21 12/25/19 08:32 12/25/19 07:39 Laboratory Last Values WBC 6.8 10^3/uL (3.5-10.8) 12/25/19 05:31 RBC 3.60 10^6 /uL (4.18-5.48) L 12/25/19 05:31 Hgb 9.8 g/dL (14.0-18.0) L 12/25/19 05:31 Hct 29 % (42-52) L 12/25/19 05:31 MCV 81 fL (80-94) 12/25/19 05:31 MCH 27 pg (27-31) 12/25/19 05:31 MCHC 34 g/dL (31-36) 12/25/19 05:31 RDW 20 % (10-15) H 12/25/19 05:31 Plt Count 204 10^3/uL (150-450) 12/25/19 05:31 MPV 6.6 fL (7.4-10.4) L 12/25/19 05:31 Neut % (Auto) 72.9 % 12/25/19 05:31 Lymph % (Auto) 12.3 % 12/25/19 05:31 Forest % (Auto) 12.9 % 12/25/19 05:31 Eos % (Auto) 1.6 % 12/25/19 05:31 Baso % (Auto) 0.3 % 12/25/19 05:31 Absolute Neuts (auto) 5.0 10^3/ul (1.5-7.7) 12/25/19 05:31 Absolute Lymphs (auto) 0.8 10^3/ul (1.0-4.8) L 12/25/19 05:31 Absolute Monos (auto) 0.9 10^3/ul (0-0.8) H 12/25/19 05:31 Absolute Eos (auto) 0.1 10^3/ul (0-0.6) 12/25/19 05:31 Absolute Basos (auto) 0.0 10^3/ul (0-0.2) 12/25/19 05:31 Absolute Nucleated RBC 0.0 10^3/ul 12/25/19 05:31 Nucleated RBC % 0.0 12/25/19 05:31 INR (Anticoag Therapy) 1.68 (0.82-1.09) H 12/25/19 05:31 APTT 63.3 seconds (26.0-38.0) H 12/20/19 11:06 Sodium 130 mmol/L (135-145) L 12/25/19 05:31 Potassium 4.4 mmol/L (3.5-5.0) 12/25/19 05:31 Chloride 93 mmol/L (101-111) L 12/25/19 05:31 Carbon Dioxide 30 mmol/L (22-32) 12/25/19 05:31 Anion Gap 7 mmol/L (2-11) 12/25/19 05:31 BUN 29 mg/dL (6-24) H 12/25/19 05:31 Creatinine 1.06 mg/dL (0.67-1.17) 12/25/19 05:31 Est GFR ( Amer) 80.5 (>60) 12/25/19 05:31 Est GFR (Non-Af Amer) 66.6 (>60) 12/25/19 05:31 BUN/Creatinine Ratio 27.4 (8-20) H 12/25/19 05:31 Glucose 85 mg/dL (70-100) 12/25/19 05:31 POC Glucose (mg/dL) 135 mg/dL (70-100) H 12/24/19 15:51 Calcium 8.6 mg/dL (8.6-10.3) 12/25/19 05:31 Magnesium 2.0 mg/dL (1.9-2.7) 12/22/19 05:30 Iron 68 ug/dL (50-212) 12/20/19 11:05 TIBC 479 mcg/dL (250-450) H 12/20/19 11:05 % Saturation 14 % (15-55) L 12/20/19 11:05 Unsat Iron Binding < 464 ug/dL 12/20/19 11:05 Transferrin 342 mg/dL (203-362) 12/20/19 11:05 Ferritin 99.0 ng/mL (24-336) 12/20/19 11:05 Total Bilirubin 1.50 mg/dL (0.2-1.0) H 12/21/19 06:23 AST 113 U/L (13-39) H 12/21/19 06:23 ALT 59 U/L (7-52) H 12/21/19 06:23 Alkaline Phosphatase 101 U/L (34-104) 12/21/19 06:23 C-Reactive Protein 10.77 mg/L (<8.01) H 12/24/19 06:57 B-Natriuretic Peptide 189 pg/mL (<=100) H 12/20/19 11:05 Total Protein 6.5 g/dL (6.4-8.9) 12/21/19 06:23 Albumin 4.0 g/dL (3.2-5.2) 12/21/19 06:23 Globulin 2.5 g/dL (2-4) 12/21/19 06:23 Albumin/Globulin Ratio 1.6 (1-3) 12/21/19 06:23 Vitamin B12 695 pg/mL (180-914) 12/20/19 11:05 Folate > 20.00 ng/mL (>3.99) 12/20/19 11:05 Urine Color Yellow 12/20/19 12:25 Urine Appearance Clear 12/20/19 12:25 Urine pH 6.0 (5-9) 12/20/19 12:25 Ur Specific Mayflower 1.019 (1.010-1.030) 12/20/19 12:25 Urine Protein 1+(30 mg/dl) (Negative) A 12/20/19 12:25 Urine Ketones Negative (Negative) 12/20/19 12:25 Urine Blood Negative (Negative) 12/20/19 12:25 Urine Nitrate Negative (Negative) 12/20/19 12:25 Urine Bilirubin Negative (Negative) 12/20/19 12:25 Urine Urobilinogen Positive (Negative) A 12/20/19 12:25 Ur Leukocyte Esterase Negative (Negative) 12/20/19 12:25 Urine WBC (Auto) Trace(0-5/hpf) (Absent) 12/20/19 12:25 Urine RBC (Auto) Trace(0-2/hpf) (Absent) 12/20/19 12:25 Urine Bacteria Absent (Absent) 12/20/19 12:25 Urine Glucose Negative (Negative) 12/20/19 12:25 Urine Ascorbic Acid * (Negative) A 12/20/19 12:25 Vancomycin Trough 4.3 mcg/mL 12/24/19 06:57 incision: c/d/i PE: able to wiggle great toe, calf soft/NT/ND MRI Left hip: no fluid collection noted Assessment: s/p left 5th ray amputation Plan: 1) NWB LLE 2) ASA/Coumadin for DVT prophylais 3) MRI negative for a fluid collection; patient reports no significant pain in left hip today 4) Ortho will continue to follow
--- NOTE | 2019-12-25 10:00 | PN ---
Subjective Date of Service: 12/25/19 Interval History: Mr. Redmond c/o pain rated at 8/10 in LLE. He has very mild L hip pain, but no difficulty with movement. He denies CP, SOB, cough, fevers, chills. He has no other complaints today. Family History: Unchanged from Admission Social History: Unchanged from Admission Past Medical History: Unchanged from Admission Objective Active Medications: Acetaminophen (Tylenol Tab*) 650 mg PO Q6H PRN PRN Reason: PAIN - MILD Last Admin: 12/24/19 17:54 Dose: 650 mg Albuterol (Ventolin Hfa Inhaler*) 2 puff INH Q4H PRN PRN Reason: SHORTNESS OF BREATH Last Admin: 12/21/19 07:55 Dose: 2 puff Albuterol/Ipratropium (Duoneb (Albuterol 2.5 Mg/Ipratropium 0.5 Mg)) 1 neb INH [id number] AWAKE PRN PRN Reason: sob/wheexing Last Admin: 12/21/19 09:49 Dose: 1 neb Aspirin (Aspirin Ec Tab*) 81 mg PO DAILY [facility] Last Admin: 12/24/19 09:06 Dose: 81 mg Atorvastatin Calcium (Lipitor*) 20 mg PO DAILY [facility] Last Admin: 12/24/19 09:06 Dose: 20 mg Dextrose (D50w Syringe 50 Ml*) 12.5 gm IV PUSH .FOR FS < 60 - SS PRN PRN Reason: FS < 60 Cefepime HCl (Maxipime 2 Gm In Dextrose Duplex (*)) 2 gm in 50 mls @ 100 mls/ hr IV Q12H [facility] Last Admin: 12/24/19 22:18 Dose: 100 mls/hr Insulin Human Lispro (Humalog*) 0 units SUBCUT AC [facility]; Protocol Last Admin: 12/25/19 08:50 Dose: Not Given Losartan Potassium (Cozaar Tab*) 100 mg PO DAILY [facility] Last Admin: 12/24/19 09:07 Dose: 100 mg Magnesium Oxide (Magox 400 Tab*) 400 mg PO DAILY [facility] Last Admin: 12/24/19 09:06 Dose: 400 mg Mometasone Furoate/Formoterol Fumar (Dulera 200/5 Mdi*) 2 puff INH BID [facility] Last Admin: 12/25/19 07:34 Dose: 2 puff Morphine Sulfate (Morphine Inj (Syringe))*) 2 mg IV Q4H PRN PRN Reason: PAIN - SEVERE Last Admin: 12/25/19 07:49 Dose: 2 mg Prednisone (Deltasone 5 Mg Tab) 10 mg PO EVERY OTHER DAY [facility] Last Admin: 12/24/19 09:06 Dose: 10 mg Tamsulosin HCl (Flomax Cap*) 0.4 mg PO DAILY [facility] Last Admin: 12/24/19 09:07 Dose: 0.4 mg Torsemide (Demadex*) 40 mg PO DAILY [facility] Last Admin: 12/24/19 09:06 Dose: 40 mg Tramadol HCl (Ultram*) 50 mg PO Q6H PRN PRN Reason: PAIN - MODERATE Last Admin: 12/25/19 09:21 Dose: 50 mg Warfarin Sodium (Coumadin Tab(*)) 4 mg PO DAILY@1700 [facility]; Protocol Last Admin: 12/24/19 17:55 Dose: 4 mg Vital Signs: Temp Pulse Resp BP Pulse Ox 97.9 F 59 18 112/50 90 12/25/19 07:16 12/25/19 07:39 12/25/19 09:21 12/25/19 08:32 12/25/19 07:39 Oxygen Devices in Use Now: None Appearance: Mr. Redmond is an older obese elderly male who is sitting up in bed. He appears moderately uncomfortable. No respiratory distress and breathing comfortably on room air. Eyes: No Scleral Icterus, PERRLA Ears/Nose/Mouth/Throat: NL Teeth, Lips, Gums, Clear Oropharnyx, Mucous Membranes Moist Neck: NL Appearance and Movements; NL JVP, Trachea Midline Respiratory: Symmetrical Chest Expansion and Respiratory Effort, - - diminished breath sounds throughout with end expiratory wheeze Cardiovascular: - - irregularly irregular; S1, S2 present; systolic murmur; trace RLE edema, 1+ LLE edema Abdominal: NL Sounds; No Tenderness; No Distention, No Hepatosplenomegaly - ventral hernia noted; reducible Extremities: - - trace RLE edema, 1+ LLE edema; b/l LE with chronic brawny skin changes Neurological: Alert and Oriented x 3 Result Diagrams: 12/25/19 05:31 12/25/19 05:31 Microbiology and Other Data: Microbiology 12/20/19 11:05 Aerobic Blood Culture - Preliminary Blood Venous No Growth Day 1 Anaerobic Blood Culture - Preliminary No Growth Day 1 Assess/Plan/Problems-Billing Assessment: Mr. Redmond is an 84 yo M with PMH of afib, HFpEF, aortic stenosis s/p AVR, HTN, HLD, COPD, DM, ALL, BPH, GELACIO; sent to the ED by Dr. Mccall because of concern for cellulitis and was found to have recurrent osteomyelitis, hyponatremia, CHF. - Patient Problems (1) Cellulitis Comment: - Presented with LLE erythema - History of osteomyelitis in left fifth metatarcel with partial amputation - Wound is poorly healing with surrounding cellulitis - Wound culture pending - Vanco d/c'd - Continue cefepime (day 6/?) (2) Chronic osteomyelitis of left foot Comment: - Previous polymicrobial infection - Debridment by Ortho 06/28/19 with 5th metatarsal amputation - Poor healing wound - MRI shows osteomyelitis in fifth metatarsal, possibly extending to 3rd and 4th metatarsals - Appreciate ID consult - Appreciate Ortho consult - 12/24 L 5th ray amputation, wound debridement - Continue cefepime (day 6/?) (3) Acute on chronic heart failure with preserved ejection fraction (HFpEF) Comment: - Previously had wheezing on exam; COPD vs CHF - BNP 189 - Likely cause of hyponatremia - Patient reports he frequently experiences weight gain at home while taking diuretics; likely needs increased dosing at home - Improvement with IV furosemide; transition to torsemide at dosing equivalent to home dose - Continue torsemide 40, as at home - continue daily weights, I/O (4) Left hip pain Comment: -pt reports L hip pain -MRI negative for acute abnormality -pain improving, ROM intact (5) Hyponatremia Comment: - Na 120 on admission, did not improve with IV - Likely from fluid overload, improving with diuresis - now back to baseline 130 - Monitor, avoid overcorrection - Continue torsemide (6) HTN (hypertension) Comment: - SBP 110-120's - Continue losartan, torsemide (7) Atrial fibrillation Comment: - Rate controlled off meds - Consider DOAC postop - Continue coumadin and INR monitoring (8) Bradycardia Comment: - Bradycardic while asleep; no waking bradycardia or symptoms - No indication for further testing or intervention at this time (9) PVD (peripheral vascular disease) Comment: - Abnormal ABIs on left in the past - LLE doppler showing no flow in mid-posterior tibial artery, other arteries with monophasic flow - Appreciate IR consult; recommends bilat compression stockings - No need for acute revascularization, but should have outpatient if he continues to have poor wound healing (10) Type 2 diabetes mellitus Comment: - Well controlled - A1c 6.1% in September - Not on home medication - Continue Lispro SS (11) COPD (chronic obstructive pulmonary disease) Comment: - Not in exacerbation - Continue Dulera (12) HLD (hyperlipidemia) Comment: - Continue atorvastatin (13) CLL (chronic lymphocytic leukemia) Comment: - Stable (14) BPH (benign prostatic hyperplasia) Comment: - Continue tamsulosin (15) GELACIO (obstructive sleep apnea) Comment: - 2L oxygen at night (16) DVT prophylaxis Comment: - Continue coumadin (17) Full code status Comment: Status and Disposition: Inpatient for IV abx and debridement 12/24. 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
[2019-12-25] MEDS ORDERED: Morphine INJ* 2 MG/ML 1 ML SYRINGE (TWO MG - NEW SYRINGE VERSION) IV PRN (10:31)
[2019-12-25] MEDS: Atorvastatin* 20 MG TAB PO SCH (10:57)
[2019-12-25] MEDS: Losartan TAB* 25 MG PO SCH (10:58)
[2019-12-25] MEDS: Magnesium Oxide TAB* 400 MG PO SCH (10:59)
[2019-12-25] MEDS: Torsemide TAB* 20 MG PO SCH (10:59)
[2019-12-25] MEDS: Tamsulosin CAP* 0.4 MG PO SCH (11:01)
[2019-12-25] MEDS: Aspirin EC TAB* 81 MG TAB.EC PO SCH (11:01)
[2019-12-25] MEDS: Cefepime 2 GM in Dextrose(*) 2 GM/50 ML BAG IV SCH ×2 (11:02→22:29)
--- NOTE | 2019-12-25 15:24 | PN ---
Progress Note - Progress Note Date of Service: 12/25/19 SOAP: Subjective: CC: foot infection HPI: 84 year old man with prior left 5th metatarsal head resection, summer 2018 and had been healed up until he knocked it on a door frame. He developed a wound with redness, drainage. He had 5th ray amputation which he tolerated well. He has no foot pain today and no fever, rash, or diarrhea. Objective: Vital Signs Temp 36.7 C 12/25/19 10:49 Pulse 61 12/25/19 10:49 Resp 18 12/25/19 13:50 BP 112/58 12/25/19 12:37 Pulse Ox 93 12/25/19 10:49 Intake & Output 12/24/19 12/25/19 12/25/19 18:59 06:59 18:59 Intake Total 031 155 8677 Output Total 6703 909 2374 Balance -1400 -40 0 Intake: IV Fluids 500 30 20 ABX - CEFEPIME 100 LR 400 NS (0.9%) 30 20 IVPB 50 50 ABX - CEFEPIME 50 50 Oral 0 480 1080 Output: Urine 7109 429 4171 Other: Estimated Void Large Medium # Bowel Movements 0 0 0 # Voids 1 1 Gen:awake, no distress HEENT: no thrush Heart:RRR no murmur Lungs:CTA BL Abd:+BS NTND soft Skin: no rash MSK: left foot wrapped Laboratory Results - last 24 hr 12/24/19 12/25/19 12/25/19 15:51 05:31 05:31 WBC 6.8 RBC 3.60 L Hgb 9.8 L Hct 29 L MCV 81 MCH 27 MCHC 34 RDW 20 H Plt Count 204 MPV 6.6 L Neut % (Auto) 72.9 Lymph % (Auto) 12.3 [place] % (Auto) 12.9 Eos % (Auto) 1.6 Baso % (Auto) 0.3 Absolute Neuts (auto) 5.0 Absolute Lymphs (auto) 0.8 L Absolute Monos (auto) 0.9 H Absolute Eos (auto) 0.1 Absolute Basos (auto) 0.0 Absolute Nucleated RBC 0.0 Nucleated RBC % 0.0 INR (Anticoag Therapy) 1.68 H Sodium Potassium Chloride Carbon Dioxide Anion Gap BUN Creatinine Est GFR ( Amer) Est GFR (Non-Af Amer) BUN/Creatinine Ratio Glucose POC Glucose (mg/dL) 135 H Calcium 12/25/19 12/25/19 05:31 12:59 WBC RBC Hgb Hct MCV MCH MCHC RDW Plt Count MPV Neut % (Auto) Lymph % (Auto) [place] % (Auto) Eos % (Auto) Baso % (Auto) Absolute Neuts (auto) Absolute Lymphs (auto) Absolute Monos (auto) Absolute Eos (auto) Absolute Basos (auto) Absolute Nucleated RBC Nucleated RBC % INR (Anticoag Therapy) Sodium 130 L Potassium 4.4 Chloride 93 L Carbon Dioxide 30 Anion Gap 7 BUN 29 H Creatinine 1.06 Est GFR ( Amer) 80.5 Est GFR (Non-Af Amer) 66.6 BUN/Creatinine Ratio 27.4 H Glucose 85 POC Glucose (mg/dL) 175 H Calcium 8.6 Microbiology 12/20/19 12:13 Aerobic Blood Culture - Final Blood Venous No Growth Day 5 Anaerobic Blood Culture - Final No Growth Day 5 12/20/19 11:05 Aerobic Blood Culture - Final Blood Venous No Growth Day 5 Anaerobic Blood Culture - Final No Growth Day 5 12/24/19 15:29 Anaerobic Culture - Preliminary Wound No Growth Day 1 12/24/19 15:29 Gram Stain - Final Foot Left Wound Culture - Preliminary No Growth Day 1 Assessment: 1. left foot chronic osteomyelitis s/p 5th ray amputation; initial Staph lugdunensis infection and then Pseudomonas wound infection, culture negative to date. 2. morbid obesity 3. Type 2 DM with neuropathy Plan: 1. continue cefepime 2 gm IV q12hrs while awaiting cultures, 6 weeks IV antibiotics for discharge, hold on PICC placement.
[2019-12-25] MEDS: Warfarin TAB(*) 4 MG PO SCH (16:39)
[2019-12-26] MEDS: Mometasone/Formoter 200/5 MDI INH SCH ×2 (07:37→19:20)
[2019-12-26 08:14] LABS: INR 2.31 (0.82-1.09)
[2019-12-26] MEDS: Aspirin EC TAB* 81 MG TAB.EC PO SCH (08:38)
[2019-12-26] MEDS: Insulin LISPRO* 1 UNITS UNIT SUBCUT SCH ×3 (08:38→17:43)
[2019-12-26] MEDS: Torsemide TAB* 20 MG PO SCH (08:38)
[2019-12-26] MEDS: Losartan TAB* 25 MG PO SCH (08:38)
[2019-12-26] MEDS: Atorvastatin* 20 MG TAB PO SCH (08:38)
[2019-12-26] MEDS: Tamsulosin CAP* 0.4 MG PO SCH (08:39)
[2019-12-26] MEDS: Magnesium Oxide TAB* 400 MG PO SCH (08:39)
[2019-12-26] MEDS: Cefepime 2 GM in Dextrose(*) 2 GM/50 ML BAG IV SCH ×2 (09:29→21:28)
[2019-12-26] MEDS: traMADol TAB* 50 MG PO PRN (10:06)
--- NOTE | 2019-12-26 13:42 | PN ---
Progress Note - Progress Note Date of Service: 12/26/19 SOAP: Subjective: []Pt seen at bedside, he feels well without complaints. No foot pain, CP, SOB, dizziness, nausea. Denies L hip pain stating is has been resolved since he went to the OR for foot amp. Objective: []Gen: NAD LLE: dressing CDI, cap refill less than two seconds distally, sensation intact distally. Calves supple and nontender Assessment: s/p left 5th ray amputation Culture: initial Staph lugdunensis infection and then Pseudomonas wound infection, OR culture negative to date. Plan: NWB LLE Dressing CDI, will change for wound check if in house Fri ABX per ID: continue cefepime 2 gm IV q12hrs while awaiting cultures, 6 weeks IV antibiotics for discharge, hold on PICC placement. Vital Signs Temp 98.6 F 12/26/19 11:33 Pulse 68 12/26/19 11:33 Resp 16 12/26/19 12:10 BP 117/46 12/26/19 11:33 Pulse Ox 93 12/26/19 11:33 Intake & Output 12/25/19 12/26/19 12/26/19 18:59 06:59 18:59 Intake Total 1500 560 360 Output Total 2175 1075 1140 Balance -675 -515 -780 Weight 206 lb 1.6 oz Intake: IV Fluids 20 30 NS (0.9%) 20 30 IVPB 50 50 ABX - CEFEPIME 50 50 Oral 1430 480 360 Output: Urine 2175 1075 1140 Other: Estimated Void Medium Medium # Bowel Movements 0 0 # Voids 2 1 Laboratory Last Values WBC 6.8 10^3/uL (3.5-10.8) 12/25/19 05:31 RBC 3.60 10^6 /uL (4.18-5.48) L 12/25/19 05:31 Hgb 9.8 g/dL (14.0-18.0) L 12/25/19 05:31 Hct 29 % (42-52) L 12/25/19 05:31 MCV 81 fL (80-94) 12/25/19 05:31 MCH 27 pg (27-31) 12/25/19 05:31 MCHC 34 g/dL (31-36) 12/25/19 05:31 RDW 20 % (10-15) H 12/25/19 05:31 Plt Count 204 10^3/uL (150-450) 12/25/19 05:31 MPV 6.6 fL (7.4-10.4) L 12/25/19 05:31 Neut % (Auto) 72.9 % 12/25/19 05:31 Lymph % (Auto) 12.3 % 12/25/19 05:31 [place] % (Auto) 12.9 % 12/25/19 05:31 Eos % (Auto) 1.6 % 12/25/19 05:31 Baso % (Auto) 0.3 % 12/25/19 05:31 Absolute Neuts (auto) 5.0 10^3/ul (1.5-7.7) 12/25/19 05:31 Absolute Lymphs (auto) 0.8 10^3/ul (1.0-4.8) L 12/25/19 05:31 Absolute Monos (auto) 0.9 10^3/ul (0-0.8) H 12/25/19 05:31 Absolute Eos (auto) 0.1 10^3/ul (0-0.6) 12/25/19 05:31 Absolute Basos (auto) 0.0 10^3/ul (0-0.2) 12/25/19 05:31 Absolute Nucleated RBC 0.0 10^3/ul 12/25/19 05:31 Nucleated RBC % 0.0 12/25/19 05:31 INR (Anticoag Therapy) 2.31 (0.82-1.09) H 12/26/19 07:42 APTT 63.3 seconds (26.0-38.0) H 12/20/19 11:06 Sodium 130 mmol/L (135-145) L 12/25/19 05:31 Potassium 4.4 mmol/L (3.5-5.0) 12/25/19 05:31 Chloride 93 mmol/L (101-111) L 12/25/19 05:31 Carbon Dioxide 30 mmol/L (22-32) 12/25/19 05:31 Anion Gap 7 mmol/L (2-11) 12/25/19 05:31 BUN 29 mg/dL (6-24) H 12/25/19 05:31 Creatinine 1.06 mg/dL (0.67-1.17) 12/25/19 05:31 Est GFR ( Amer) 80.5 (>60) 12/25/19 05:31 Est GFR (Non-Af Amer) 66.6 (>60) 12/25/19 05:31 BUN/Creatinine Ratio 27.4 (8-20) H 12/25/19 05:31 Glucose 85 mg/dL (70-100) 12/25/19 05:31 POC Glucose (mg/dL) 220 mg/dL (70-100) H 12/26/19 11:19 Calcium 8.6 mg/dL (8.6-10.3) 12/25/19 05:31 Magnesium 2.0 mg/dL (1.9-2.7) 12/22/19 05:30 Iron 68 ug/dL (50-212) 12/20/19 11:05 TIBC 479 mcg/dL (250-450) H 12/20/19 11:05 % Saturation 14 % (15-55) L 12/20/19 11:05 Unsat Iron Binding < 464 ug/dL 12/20/19 11:05 Transferrin 342 mg/dL (203-362) 12/20/19 11:05 Ferritin 99.0 ng/mL (24-336) 12/20/19 11:05 Total Bilirubin 1.50 mg/dL (0.2-1.0) H 12/21/19 06:23 AST 113 U/L (13-39) H 12/21/19 06:23 ALT 59 U/L (7-52) H 12/21/19 06:23 Alkaline Phosphatase 101 U/L (34-104) 12/21/19 06:23 C-Reactive Protein 10.77 mg/L (<8.01) H 12/24/19 06:57 B-Natriuretic Peptide 189 pg/mL (<=100) H 12/20/19 11:05 Total Protein 6.5 g/dL (6.4-8.9) 12/21/19 06:23 Albumin 4.0 g/dL (3.2-5.2) 12/21/19 06:23 Globulin 2.5 g/dL (2-4) 12/21/19 06:23 Albumin/Globulin Ratio 1.6 (1-3) 12/21/19 06:23 Vitamin B12 695 pg/mL (180-914) 12/20/19 11:05 Folate > 20.00 ng/mL (>3.99) 12/20/19 11:05 Urine Color Yellow 12/20/19 12:25 Urine Appearance Clear 12/20/19 12:25 Urine pH 6.0 (5-9) 12/20/19 12:25 Ur Specific [place] 1.019 (1.010-1.030) 12/20/19 12:25 Urine Protein 1+(30 mg/dl) (Negative) A 12/20/19 12:25 Urine Ketones Negative (Negative) 12/20/19 12:25 Urine Blood Negative (Negative) 12/20/19 12:25 Urine Nitrate Negative (Negative) 12/20/19 12:25 Urine Bilirubin Negative (Negative) 12/20/19 12:25 Urine Urobilinogen Positive (Negative) A 12/20/19 12:25 Ur Leukocyte Esterase Negative (Negative) 12/20/19 12:25 Urine WBC (Auto) Trace(0-5/hpf) (Absent) 12/20/19 12:25 Urine RBC (Auto) Trace(0-2/hpf) (Absent) 12/20/19 12:25 Urine Bacteria Absent (Absent) 12/20/19 12:25 Urine Glucose Negative (Negative) 12/20/19 12:25 Urine Ascorbic Acid * (Negative) A 12/20/19 12:25 Vancomycin Trough 4.3 mcg/mL 12/24/19 06:57
--- NOTE | 2019-12-26 13:54 | PN ---
Subjective Date of Service: 12/26/19 Interval History: Mr. Redmond reports improvement in pain compared to yesterday. He c/o 4/10 pain currently and states that he has intermittent muscle spasms. He denies dysuria , retention, but does complain of some urgency. He has minimal L hip pain and no decrease in L hip ROM. No other complaints today. Family History: Unchanged from Admission Social History: Unchanged from Admission Past Medical History: Unchanged from Admission Objective Active Medications: Acetaminophen (Tylenol Tab*) 650 mg PO Q6H PRN PRN Reason: PAIN - MILD Last Admin: 12/24/19 17:54 Dose: 650 mg Albuterol (Ventolin Hfa Inhaler*) 2 puff INH Q4H PRN PRN Reason: SHORTNESS OF BREATH Last Admin: 12/21/19 07:55 Dose: 2 puff Albuterol/Ipratropium (Duoneb (Albuterol 2.5 Mg/Ipratropium 0.5 Mg)) 1 neb INH [id number] AWAKE PRN PRN Reason: sob/wheexing Last Admin: 12/21/19 09:49 Dose: 1 neb Aspirin (Aspirin Ec Tab*) 81 mg PO DAILY [facility] Last Admin: 12/26/19 08:38 Dose: 81 mg Atorvastatin Calcium (Lipitor*) 20 mg PO DAILY [facility] Last Admin: 12/26/19 08:38 Dose: 20 mg Dextrose (D50w Syringe 50 Ml*) 12.5 gm IV PUSH .FOR FS < 60 - SS PRN PRN Reason: FS < 60 Cefepime HCl (Maxipime 2 Gm In Dextrose Duplex (*)) 2 gm in 50 mls @ 100 mls/ hr IV Q12H [facility] Last Admin: 12/26/19 09:29 Dose: 100 mls/hr Insulin Human Lispro (Humalog*) 0 units SUBCUT AC [facility]; Protocol Last Admin: 12/26/19 12:55 Dose: 6 units Losartan Potassium (Cozaar Tab*) 100 mg PO DAILY [facility] Last Admin: 12/26/19 08:38 Dose: 100 mg Magnesium Oxide (Magox 400 Tab*) 400 mg PO DAILY [facility] Last Admin: 12/26/19 08:39 Dose: 400 mg Mometasone Furoate/Formoterol Fumar (Dulera 200/5 Mdi*) 2 puff INH BID [facility] Last Admin: 12/26/19 07:37 Dose: 2 puff Morphine Sulfate (Morphine Inj (Syringe))*) 2 mg IV Q2H PRN PRN Reason: PAIN - SEVERE Last Admin: 12/25/19 12:59 Dose: 2 mg Prednisone (Deltasone 5 Mg Tab) 10 mg PO EVERY OTHER DAY [facility] Last Admin: 12/26/19 08:38 Dose: 10 mg Tamsulosin HCl (Flomax Cap*) 0.4 mg PO DAILY [facility] Last Admin: 12/26/19 08:39 Dose: 0.4 mg Torsemide (Demadex*) 40 mg PO DAILY [facility] Last Admin: 12/26/19 08:38 Dose: 40 mg Tramadol HCl (Ultram*) 50 mg PO Q6H PRN PRN Reason: PAIN - MODERATE Last Admin: 12/26/19 10:06 Dose: 50 mg Warfarin Sodium (Coumadin Tab(*)) 4 mg PO DAILY@1700 [facility]; Protocol Last Admin: 12/25/19 16:39 Dose: 4 mg Vital Signs: Temp Pulse Resp BP Pulse Ox 98.6 F 68 16 117/46 93 12/26/19 11:33 12/26/19 11:33 12/26/19 12:10 12/26/19 11:33 12/26/19 11:33 Oxygen Devices in Use Now: None Appearance: Mr. Redmond is an obese elderly white male who is sitting up in bed. He appears comfortable, in no acute distress. Eyes: No Scleral Icterus, PERRLA Ears/Nose/Mouth/Throat: NL Teeth, Lips, Gums, Clear Oropharnyx, Mucous Membranes Moist Neck: NL Appearance and Movements; NL JVP, Trachea Midline Respiratory: Symmetrical Chest Expansion and Respiratory Effort, - - diminished breath sounds throughout with expiratory wheeze Cardiovascular: - - irregularly irregular; systolic murmur; 1+ LLE edema, trace RLE edema Extremities: No Clubbing, Cyanosis, - - 1+ LLE edema, trace RLE edema; CDI dressing in place to LLE Neurological: Alert and Oriented x 3 Result Diagrams: 12/25/19 05:31 12/25/19 05:31 Microbiology and Other Data: Microbiology 12/20/19 11:05 Aerobic Blood Culture - Preliminary Blood Venous No Growth Day 1 Anaerobic Blood Culture - Preliminary No Growth Day 1 Assess/Plan/Problems-Billing Assessment: Mr. Redmond is an 84 yo M with PMH of afib, HFpEF, aortic stenosis s/p AVR, HTN, HLD, COPD, DM, ALL, BPH, GELACIO; sent to the ED by Dr. Mccall because of concern for cellulitis and was found to have recurrent osteomyelitis, hyponatremia, CHF. - Patient Problems (1) Chronic osteomyelitis of left foot Comment: - Previous polymicrobial infection - Debridment by Ortho 06/28/19 with 5th metatarsal amputation - Poor healing wound - MRI shows osteomyelitis in fifth metatarsal, possibly extending to 3rd and 4th metatarsals - Appreciate ID consult - Appreciate Ortho consult - 12/24 L 5th ray amputation, wound debridement - Continue cefepime (day 7/?) (2) Cellulitis Comment: - Presented with LLE erythema - History of osteomyelitis in left fifth metatarcel with partial amputation - Wound is poorly healing with surrounding cellulitis - Wound culture pending - ID following; thank you for recommendations - Vanco d/c'd - Continue cefepime (day 7/?) (3) Acute on chronic heart failure with preserved ejection fraction (HFpEF) Comment: - Previously had wheezing on exam; COPD vs CHF - BNP 189 - Likely cause of hyponatremia - Patient reports he frequently experiences weight gain at home while taking diuretics; likely needs increased dosing at home - Improvement with IV furosemide; transition to torsemide - Continue torsemide 40, as at home - continue daily weights, I/O - 19# weight loss with negative fluid balance thus far (4) PVD (peripheral vascular disease) Comment: - Abnormal ABIs on left in the past - LLE doppler showing no flow in mid-posterior tibial artery, other arteries with monophasic flow - Appreciate IR consult; recommends bilat compression stockings - No need for acute revascularization, but should have outpatient if he continues to have poor wound healing (5) Left hip pain Comment: -pt reports L hip pain -MRI negative for acute abnormality -pain improving, ROM intact (6) Hyponatremia Comment: - Na 120 on admission, did not improve with IV - Likely from fluid overload, improving with diuresis - now back to baseline 130 - Monitor, avoid overcorrection - Continue torsemide (7) HTN (hypertension) Comment: - SBP 110-120's - Continue losartan, torsemide (8) Atrial fibrillation Comment: - Rate controlled off meds - Consider DOAC postop - Continue coumadin and INR monitoring (9) Bradycardia Comment: - Bradycardic while asleep; no waking bradycardia or symptoms - No indication for further testing or intervention at this time (10) Type 2 diabetes mellitus Comment: - Well controlled - A1c 6.1% in September - Not on home medication - Continue Lispro SS (11) COPD (chronic obstructive pulmonary disease) Comment: - Not in exacerbation - Continue Dulera (12) HLD (hyperlipidemia) Comment: - Continue atorvastatin (13) CLL (chronic lymphocytic leukemia) Comment: - Stable (14) BPH (benign prostatic hyperplasia) Comment: - Continue tamsulosin (15) GELACIO (obstructive sleep apnea) Comment: - 2L oxygen at night (16) DVT prophylaxis Comment: - Continue coumadin (17) Full code status Comment: Status and Disposition: Inpatient for IV abx and debridement 12/24. Will likely need shelter IV abx; pending recommendations from ID.
[2019-12-26] MEDS ORDERED: Cyclobenzaprine TAB* 10 MG PO PRN (15:41)
[2019-12-26] MEDS ORDERED: oxyCODONE/Acetamin 5/325 MG* TAB PO PRN (15:42)
[2019-12-26] MEDS: Warfarin TAB(*) 4 MG PO SCH (16:17)
[2019-12-27 06:39] LABS: ABS Eosinophils 0.1 10^3/ul (0-0.6); ABS Lymphocytes 1.1 10^3/ul (1.0-4.8); ABS Monocytes 1.1 10^3/ul (0-0.8); ABS Neutrophils 5.8 10^3/ul (1.5-7.7); Eosinophil % 1.6 %; Hematocrit 27 % (42-52); Hemoglobin 9.5 g/dL (14.0-18.0); Lymphocyte % 12.9 %; Mean Corpuscular HGB Conc 35 g/dL (31-36); Mean Corpuscular Hemoglobin 28 pg (27-31); Mean Corpuscular Volume 81 fL (80-94); Mean Platelet Volume 6.8 fL (7.4-10.4); Platelet Count 205 10^3/uL (150-450); Red Blood Count 3.39 10^6 /uL (4.18-5.48); Red Cell Distribution Width 19 % (10-15); White Blood Count 8.2 10^3/uL (3.5-10.8)
[2019-12-27 06:43] LABS: INR 2.39 (0.82-1.09)
[2019-12-27 06:57] LABS: BUN/Creatinine Ratio 37.4 (8-20); Calcium 8.4 mg/dL (8.6-10.3); EGFR African American 87.1 (>60); Potassium 3.6 mmol/L (3.5-5.0)
[2019-12-27] MEDS: Mometasone/Formoter 200/5 MDI INH SCH (07:26)
[2019-12-27] MEDS: Insulin LISPRO* 1 UNITS UNIT SUBCUT SCH ×2 (07:56→12:24)
[2019-12-27 08:20] LABS: Urine Appearance Clear; Urine Bilirubin Negative (Negative); Urine Blood 1+ (Negative); Urine Color Yellow; Urine Glucose Negative (Negative); Urine Ketones Negative (Negative); Urine Nitrite Negative (Negative); Urine Protein Negative (Negative); Urine Urobilinogen Negative (Negative)
[2019-12-27 08:25] LABS: Urine Bacteria Absent (Absent); Urine Red Blood Cell Trace(0-2/hpf) (Absent); Urine White Blood Cell Absent (Absent)
[2019-12-27] MEDS: Atorvastatin* 20 MG TAB PO SCH (08:54)
[2019-12-27] MEDS: Tamsulosin CAP* 0.4 MG PO SCH (08:54)
[2019-12-27] MEDS: Magnesium Oxide TAB* 400 MG PO SCH (08:54)
[2019-12-27] MEDS: Aspirin EC TAB* 81 MG TAB.EC PO SCH (08:54)
[2019-12-27] MEDS: Torsemide TAB* 20 MG PO SCH (08:54)
[2019-12-27] MEDS: Losartan TAB* 25 MG PO SCH (08:54)
--- NOTE | 2019-12-27 08:59 | PN ---
Subjective Date of Service: 12/27/19 Interval History: Mr. Redmond states he is feeling well today. He reports that his LLE has increase in pain when it hangs down, but denies pain at this time. He states that he does continue to have occasional muscle spasms, but that he will "live with it." He denies L hip pain. He continues to have frequency without other s /s of UTI, UA negative. Patient is concerned about ambulation if he returns home, as he has difficulty maintaining L heel WB status. Family History: Unchanged from Admission Social History: Unchanged from Admission Past Medical History: Unchanged from Admission Objective Active Medications: Acetaminophen (Tylenol Tab*) 650 mg PO Q6H PRN PRN Reason: PAIN - MILD Last Admin: 12/24/19 17:54 Dose: 650 mg Albuterol (Ventolin Hfa Inhaler*) 2 puff INH Q4H PRN PRN Reason: SHORTNESS OF BREATH Last Admin: 12/21/19 07:55 Dose: 2 puff Albuterol/Ipratropium (Duoneb (Albuterol 2.5 Mg/Ipratropium 0.5 Mg)) 1 neb INH [id number] AWAKE PRN PRN Reason: sob/wheexing Last Admin: 12/21/19 09:49 Dose: 1 neb Aspirin (Aspirin Ec Tab*) 81 mg PO DAILY [facility] Last Admin: 12/26/19 08:38 Dose: 81 mg Atorvastatin Calcium (Lipitor*) 20 mg PO DAILY [facility] Last Admin: 12/26/19 08:38 Dose: 20 mg Cyclobenzaprine HCl (Flexeril Tab*) 10 mg PO TID PRN PRN Reason: muscle spasm Dextrose (D50w Syringe 50 Ml*) 12.5 gm IV PUSH .FOR FS < 60 - SS PRN PRN Reason: FS < 60 Cefepime HCl (Maxipime 2 Gm In Dextrose Duplex (*)) 2 gm in 50 mls @ 100 mls/ hr IV Q12H [facility] Last Admin: 12/26/19 21:28 Dose: 100 mls/hr Insulin Human Lispro (Humalog*) 0 units SUBCUT AC [facility]; Protocol Last Admin: 12/27/19 07:56 Dose: Not Given Losartan Potassium (Cozaar Tab*) 100 mg PO DAILY [facility] Last Admin: 12/26/19 08:38 Dose: 100 mg Magnesium Oxide (Magox 400 Tab*) 400 mg PO DAILY [facility] Last Admin: 12/26/19 08:39 Dose: 400 mg Mometasone Furoate/Formoterol Fumar (Dulera 200/5 Mdi*) 2 puff INH BID [facility] Last Admin: 12/27/19 07:26 Dose: 2 puff Morphine Sulfate (Morphine Inj (Syringe))*) 2 mg IV Q2H PRN PRN Reason: PAIN - SEVERE Last Admin: 12/25/19 12:59 Dose: 2 mg Oxycodone/Acetaminophen (Percocet 5/325 Tab*) 1 tab PO Q4H PRN PRN Reason: mild to moderate pain Prednisone (Deltasone 5 Mg Tab) 10 mg PO EVERY OTHER DAY [facility] Last Admin: 12/26/19 08:38 Dose: 10 mg Tamsulosin HCl (Flomax Cap*) 0.4 mg PO DAILY [facility] Last Admin: 12/26/19 08:39 Dose: 0.4 mg Torsemide (Demadex*) 40 mg PO DAILY [facility] Last Admin: 12/26/19 08:38 Dose: 40 mg Warfarin Sodium (Coumadin Tab(*)) 4 mg PO DAILY@1700 [facility]; Protocol Last Admin: 12/26/19 16:17 Dose: 4 mg Vital Signs: Temp Pulse Resp BP Pulse Ox 98.3 F 59 16 129/52 95 12/27/19 03:02 12/27/19 03:02 12/27/19 07:27 12/27/19 03:02 12/27/19 03:02 Oxygen Devices in Use Now: None Appearance: Mr. Redmond is an obese elderly white male who is sitting at edge of bed with LE at floor. He appears to be comfortable, in no acute distress. Eyes: No Scleral Icterus, PERRLA Ears/Nose/Mouth/Throat: NL Teeth, Lips, Gums, Clear Oropharnyx, Mucous Membranes Moist Neck: NL Appearance and Movements; NL JVP, Trachea Midline Respiratory: Symmetrical Chest Expansion and Respiratory Effort, Clear to Auscultation - no wheeze, rhonchi, rales Cardiovascular: - - irregularly irregular; S1, S2 present; systolic murmur Abdominal: NL Sounds; No Tenderness; No Distention, No Hepatosplenomegaly Extremities: No Clubbing, Cyanosis, - - 1+ LLE edema; trace RLE edema Neurological: Alert and Oriented x 3 Result Diagrams: 12/27/19 06:08 12/27/19 06:08 Microbiology and Other Data: Microbiology 12/20/19 11:05 Aerobic Blood Culture - Preliminary Blood Venous No Growth Day 1 Anaerobic Blood Culture - Preliminary No Growth Day 1 Assess/Plan/Problems-Billing Assessment: Mr. Redmond is an 84 yo M with PMH of afib, HFpEF, aortic stenosis s/p AVR, HTN, HLD, COPD, DM, ALL, BPH, GELACIO; sent to the ED by Dr. Mccall because of concern for cellulitis and was found to have recurrent osteomyelitis, hyponatremia, CHF. - Patient Problems (1) Chronic osteomyelitis of left foot Comment: - Previous polymicrobial infection - Debridment by Ortho 06/28/19 with 5th metatarsal amputation - Poorly healing wound - MRI shows osteomyelitis in fifth metatarsal, possibly extending to 3rd and 4th metatarsals - Appreciate ID consult - Appreciate Ortho consult - 12/24 L 5th ray amputation, wound debridement - Continue cefepime (day 8/?) (2) Cellulitis Comment: - Presented with LLE erythema - History of osteomyelitis in left fifth metatarcel with partial amputation - Wound is poorly healing with surrounding cellulitis - Wound culture 12/22: Staph aureus; repeat culture 12/24 NGTD - ID following; thank you for recommendations - Vanco d/c'd - Continue cefepime (day 8/?) (3) Acute on chronic heart failure with preserved ejection fraction (HFpEF) Comment: - Previously had wheezing on exam; COPD vs CHF - BNP 189 - Likely cause of hyponatremia - Patient reports he frequently experiences weight gain at home while taking diuretics; likely needs increased dosing at home - Improvement with IV furosemide; transition to torsemide - Continue torsemide 40 - continue daily weights, I/O - 26# weight loss with negative fluid balance thus far (4) PVD (peripheral vascular disease) Comment: - Abnormal ABIs on left in the past - LLE doppler showing no flow in mid-posterior tibial artery, other arteries with monophasic flow - Appreciate IR consult; recommends bilat compression stockings - No need for acute revascularization, but should have outpatient if he continues to have poor wound healing (5) Left hip pain Comment: -resolved -pt reports L hip pain -MRI negative for acute abnormality -pain improving, ROM intact (6) Hyponatremia Comment: -resolved - Na 120 on admission, did not improve with IV - Likely from fluid overload, improving with diuresis - now back to baseline 130 - Monitor, avoid overcorrection - Continue torsemide (7) HTN (hypertension) Comment: - SBP 100-130's - Continue losartan, torsemide (8) Atrial fibrillation Comment: - Rate controlled off meds - Consider DOAC postop - Continue coumadin and INR monitoring (9) Bradycardia Comment: - Bradycardic while asleep; no waking bradycardia or symptoms - No indication for further testing or intervention at this time (10) Type 2 diabetes mellitus Comment: - Well controlled - A1c 6.1% in September - Not on home medication - Continue Lispro SS (11) COPD (chronic obstructive pulmonary disease) Comment: - Not in exacerbation - Continue Dulera (12) HLD (hyperlipidemia) Comment: - Continue atorvastatin (13) CLL (chronic lymphocytic leukemia) Comment: - Stable (14) BPH (benign prostatic hyperplasia) Comment: - Continue tamsulosin (15) GELACIO (obstructive sleep apnea) Comment: - 2L oxygen at night (16) DVT prophylaxis Comment: - Continue coumadin (17) Full code status Comment: Status and Disposition: Inpatient for IV abx and debridement 12/24. Will likely need assisted IV abx; pending recommendations from ID.
[2019-12-27] MEDS: Cefepime 2 GM in Dextrose(*) 2 GM/50 ML BAG IV SCH (10:18)
--- NOTE | 2019-12-27 10:55 | PN ---
Progress Note - Progress Note Date of Service: 12/27/19 SOAP: Subjective: CC: foot infection HPI: 84 year old man with prior left 5th metatarsal head resection, summer 2018 and had been healed up until he knocked it on a door frame recently. He developed a wound with redness, drainage. He had 5th ray amputation which he tolerated well. He feels well, going home today. No diarrhea, rash or fever. Objective: Vital Signs Temp 36.8 C 12/27/19 03:02 Pulse 59 12/27/19 03:02 Resp 16 12/27/19 07:27 BP 129/52 12/27/19 03:02 Pulse Ox 95 12/27/19 03:02 Intake & Output 12/26/19 12/27/19 12/27/19 18:59 06:59 18:59 Intake Total 1205 75 600 Output Total 1520 500 200 Balance -315 -425 400 Weight 205 lb 4.8 oz Intake: IV Fluids 15 NS (0.9%) 15 IVPB 85 60 ABX - CEFEPIME 55 60 NS (0.9%) 30 Oral 1120 0 600 Output: Urine 1520 500 200 Other: Estimated Void Medium # Bowel Movements 0 # Voids 1 5 Gen:awake, no distress Heart:RRR no murmur Lungs:CTA BL Abd:+BS NTND soft Skin: no rash MSK: left foot wrapped Laboratory Results - last 24 hr 12/26/19 12/26/19 12/27/19 11:19 16:22 06:08 WBC RBC Hgb Hct MCV MCH MCHC RDW Plt Count MPV Neut % (Auto) Lymph % (Auto) Eagle % (Auto) Eos % (Auto) Baso % (Auto) Absolute Neuts (auto) Absolute Lymphs (auto) Absolute Monos (auto) Absolute Eos (auto) Absolute Basos (auto) Absolute Nucleated RBC Nucleated RBC % INR (Anticoag Therapy) 2.39 H Sodium Potassium Chloride Carbon Dioxide Anion Gap BUN Creatinine Est GFR ( Amer) Est GFR (Non-Af Amer) BUN/Creatinine Ratio Glucose POC Glucose (mg/dL) 220 H 222 H Calcium Urine Color Urine Appearance Urine pH Ur Specific [place] Urine Protein Urine Ketones Urine Blood Urine Nitrate Urine Bilirubin Urine Urobilinogen Ur Leukocyte Esterase Urine WBC (Auto) Urine RBC (Auto) Urine Bacteria Urine Glucose 12/27/19 12/27/1912/27/20 06:08 06:08 07:24 WBC 8.2 RBC 3.39 L Hgb 9.5 L Hct 27 L MCV 81 MCH 28 MCHC 35 RDW 19 H Plt Count 205 MPV 6.8 L Neut % (Auto) 71.1 Lymph % (Auto) 12.9 Eagle % (Auto) 13.9 Eos % (Auto) 1.6 Baso % (Auto) 0.5 Absolute Neuts (auto) 5.8 Absolute Lymphs (auto) 1.1 Absolute Monos (auto) 1.1 H Absolute Eos (auto) 0.1 Absolute Basos (auto) 0.0 Absolute Nucleated RBC 0.0 Nucleated RBC % 0.0 INR (Anticoag Therapy) Sodium 131 L Potassium 3.6 Chloride 92 L Carbon Dioxide 31 Anion Gap 8 BUN 37 H Creatinine 0.99 Est GFR ( Amer) 87.1 Est GFR (Non-Af Amer) 72.0 BUN/Creatinine Ratio 37.4 H Glucose 102 H POC Glucose (mg/dL) 122 H Calcium 8.4 L Urine Color Urine Appearance Urine pH Ur Specific [place] Urine Protein Urine Ketones Urine Blood Urine Nitrate Urine Bilirubin Urine Urobilinogen Ur Leukocyte Esterase Urine WBC (Auto) Urine RBC (Auto) Urine Bacteria Urine Glucose 12/27/19 07:30 WBC RBC Hgb Hct MCV MCH MCHC RDW Plt Count MPV Neut % (Auto) Lymph % (Auto) Eagle % (Auto) Eos % (Auto) Baso % (Auto) Absolute Neuts (auto) Absolute Lymphs (auto) Absolute Monos (auto) Absolute Eos (auto) Absolute Basos (auto) Absolute Nucleated RBC Nucleated RBC % INR (Anticoag Therapy) Sodium Potassium Chloride Carbon Dioxide Anion Gap BUN Creatinine Est GFR ( Amer) Est GFR (Non-Af Amer) BUN/Creatinine Ratio Glucose POC Glucose (mg/dL) Calcium Urine Color Yellow Urine Appearance Clear Urine pH 6.0 Ur Specific [place] 1.010 Urine Protein Negative Urine Ketones Negative Urine Blood 1+ A Urine Nitrate Negative Urine Bilirubin Negative Urine Urobilinogen Negative Ur Leukocyte Esterase Negative Urine WBC (Auto) Absent Urine RBC (Auto) Trace(0-2/hpf) Urine Bacteria Absent Urine Glucose Negative Assessment: 1. left foot chronic osteomyelitis s/p 5th ray amputation; initial Staph lugdunensis infection and then Pseudomonas wound infection, culture negative currently. 2. morbid obesity 3. Type 2 DM with neuropathy Plan: 1. dalvance 1500mg IV tomorrow and 7 days later, fu with ID 1-2 weeks. 35 minutes floor time >50% face to face and in coordination for outpatient IV antibiotics, all questions answered.
--- NOTE | 2019-12-27 13:01 | DS ---
CC: Dr. Galicia; Dr. Mccall; Dr. Longo; Dr. Akins * DISCHARGE SUMMARY: DATE OF ADMISSION: 12/20/19 DATE OF DISCHARGE: 12/27/19 PRIMARY CARE PROVIDER: Dr. Galicia. OTHER PROVIDERS: 1. Dr. Mccall. 2. Dr. Longo. 3. Dr. Akins. ATTENDING PHYSICIAN: Dr. Ann Marie Ramsay * (dictated by KO Flores). PRIMARY DIAGNOSES: 1. Left lower extremity chronic osteomyelitis with overlying cellulitis. 2. Acute on chronic heart failure exacerbation. 3. Peripheral vascular disease. SECONDARY DIAGNOSES: 1. Atrial fibrillation. 2. Heart failure, preserved ejection fraction. 3. Chronic obstructive pulmonary disease. 4. Hypertension. 5. Hyperlipidemia. 6. Diabetes mellitus, diet controlled. 7. Chronic lymphocytic leukemia. 8. Benign prostatic hypertrophy. 9. Obstructive sleep apnea. 10. Aortic stenosis, status post aortic valve replacement. STUDIES WHILE IN THE HOSPITAL: 1. Bilateral lower extremity ultrasound, impression: No evidence for DVT, nonspecific mass in left inguinal region possibly a hematoma given the patient' s history of trauma, although nonspecific. Recommend clinical correlation. 2. Chest x-ray, impression: Cardiomegaly. No active cardiopulmonary disease. 3. MRI left lower extremity, impression: Evidence for osteomyelitis involving the phalanges of the 5th toe as well as the distal margin of the partially resected 5th metatarsal. Less specific reactive edema or potentially early osteomyelitis at the 3rd and 4th metatarsals. Diffuse soft tissue edema. No loculated soft tissue plain abscess collection evident. 4. Left lower extremity arterial duplex, impression: No flow detected in mid posterior tibial artery, dorsalis pedis distal posterior tibial artery, and medial and lateral plantar arteries are patent with monophasic flow. 5. MRI left hip, impression: Enlarged heterogenous prostate gland with abnormal T2 intermediate signal in the left side of the peripheral zone of the prostate gland for which a biopsy is suggested to exclude prostate cancer. Full thickness tear of the left iliopsoas tendon with approximately 4 cm of proximal retraction of the tendon. Grade 2 strain of the left psoas and left iliopsoas muscle with a small amount of intramuscular hemorrhage. Grade 1 strain of the left iliac, left sartorius, and left gluteus minimus muscles. Partial tears of the origins of the bilateral hamstring tendons, tear of the anterior superior portion of the left acetabular labrum, small fat containing indirect left inguinal hernia, colonic diverticulosis. PROCEDURES WHILE IN THE HOSPITAL: Left fifth ray amputation, 12/24/19, for recurrent osteomyelitis of the left fifth toe and proximal left fifth metatarsal performed by Dr. Roosevelt Mccall. DISCHARGE MEDICATIONS: Home medications: 1. Acetaminophen 500 to 1000 mg p.o. daily p.r.n. 2. Albuterol HFA inhaler 2 puffs inhalation q.4 hours p.r.n. 3. Ascorbic acid 500 mg p.o. daily. 4. Aspirin 81 mg p.o. daily. 5. Atorvastatin 20 mg p.o. daily. 6. Cholecalciferol 5000 units p.o. daily. 7. Fluticasone/vilanterol 1 puff inhalation daily. 8. Glucosamine 1000 mg p.o. daily. 9. Losartan 100 mg p.o. daily. 10. Magnesium 30 mg p.o. daily. 11. Magnesium oxide 400 mg p.o. daily. 12. Multivitamin/minerals 1 tab p.o. daily. 13. Prednisone 10 mg p.o. every other day. 14. Tamsulosin 0.4 mg p.o. daily. 15. Triamcinolone 1 application topically b.i.d. New home medications: 1. Oxycodone/acetaminophen 5/325, 1 tab p.o. q.4 hours p.r.n., MDD 6. 2. Torsemide 40 mg p.o. daily. 3. Dalvance 1500 mg IV q.7 days x2. Changed home medications: 1. Warfarin 4 mg p.o. daily at 1500. Discontinued home medications: 1. Furosemide. HISTORY OF PRESENT ILLNESS/HOSPITAL COURSE: Mr. Redmond is an 84-year-old male with a past medical history of atrial fibrillation, on anticoagulation, heart failure, preserved ejection fraction, hypertension, hyperlipidemia, diabetes diet controlled, who presented to the ER on 12/20/19 at the recommendation of Dr. Mccall due to left lower extremity erythema and edema. For full and complete details, please see the history and physical dictated by Holli Mendez NP, but in short, the patient presents for the above reasons. He had received approximately 1 week Bactrim prior to admission. He also had surgical intervention in May. Upon arrival, the patient also reports weight gain and shortness of breath despite increase in Lasix dose. In the ER, Doppler was obtained and was negative for DVT. The patient was admitted for cellulitis. An MRI was obtained and revealed osteomyelitis of the 5th toe, reactive edema, or early osteomyelitis of the third and fourth metatarsals. Infectious Disease and Orthopedics were consulted. Infectious Disease recommends cefepime 2 g IV q.12 hours. The patient continued antibiotics throughout his stay. At the time of discharge, the patient was transitioned to Dalvance 1500 mg IV starting the day after discharge. He will have a repeat dose 7 days later and follow up with Infectious Disease in 1 to 2 weeks. Orthopedics was consulted and recommended left 5th ray amputation, which was performed 12/24/19. Due to concern over the patient's vascular status an arterial duplex scan of the left lower extremity was done. This showed no flow in mid posterior tibial artery, all other vessels patent. For this, Interventional Radiology was consulted. They recommended left, if not, bilateral lower extremity compression stockings. They further recommended repeat arteriography of the left lower leg with possible revascularization of infrapopliteal arteries in the outpatient setting , stating that the patient may return on an outpatient basis if the left foot wound continues with difficult healing. The patient's left lower extremity dressing was changed prior to discharge. He will follow with Dr. Brown outpatient next week for further dressing changes and instructions. The patient was found to be in heart failure at admission with bilateral lower extremity edema, weight gain, shortness of breath. He received IV Lasix upon arrival. He was eventually transitioned to torsemide with good results. At the time of discharge, the patient had experienced a 26-pound reduction in weight and is back to just under his home weight of 210 to 212. He has a negative fluid balance at the time of discharge. His lower extremity edema is improved and his pulmonary exam is benign at the time of discharge. Recommendations are made for daily weights and he should call his primary care provider for further instructions if he experiences more than a 5-pound weight gain. It is important to note that at admission the patient was hyponatremic. He does have baseline hyponatremia around 130. Upon arrival, his sodium was 120. This did not improve with IV fluids. He was therefore started on IV diuretics, which improved his sodium back to 131 at the time of discharge. The patient's INR was noted to be supratherapeutic at admission. His Coumadin was held for some time and daily INRs were obtained. Adjustments were made to his Coumadin dose and he will be discharged on 4 mg of Coumadin daily. His INR at discharge is 2.39. Recommend that he follow up with his primary care provider and repeat his INR in 3 to 5 days. The patient reported left hip pain during his hospital stay due to concern for septic joint in the setting of left lower extremity infection. An MRI of the left hip was obtained. There was no gross abnormality of the left hip. The patient's pain improved and his range of motion remained intact throughout his stay. At the time of discharge, the patient reports 0/10 pain in the left lower extremity, 0/10 pain in the hip. He does report occasional spasms. He reports that his pain is worse with dependence. He has been working with Physical Therapy and reports that he has some difficulty with the instructions for nonweightbearing to the left lower extremity. He will obtain physical therapy in the outpatient setting. He prefers to be discharged home over discharge to a subacute rehab. He is agreeable to q.7 day antibiotic transfusions x2. He is agreeable to discharge home. Mr. Redmond is stable for discharge home. PHYSICAL EXAMINATION: Vital Signs: Temperature 98.3 temporal, heart rate 59, respiratory rate 16, oxygen saturation 95% on room air, blood pressure 129/52. General: Mr. Redmond is a well-developed, well-nourished, obese, elderly white male, who is sitting at the edge of his bed with lower extremities on the floor. He appears to be in no acute distress. He is breathing comfortably on room air. Cardiovascular: Irregularly regular with a systolic murmur. S1, S2 present. No rubs, clicks, or gallops. There is trace right lower extremity edema, 1+ left lower extremity pitting edema. There is no JVD. Pulmonary: Symmetrical chest expansion. No use of accessory muscle. Clear to auscultation bilaterally. No rhonchi, wheeze, or rales. Abdomen: Obese, bowel sounds in all quadrants. Soft, nontender to palpation. Musculoskeletal: Full range of motion. There is a left lower extremity clean, dry, and intact dressing in place. Sensation is diminished to the left foot. Skin: Bilateral lower extremities with brawny skin changes. Neuro: The patient is awake. He is alert and oriented x3. Cranial nerves II through XII are grossly intact. DISCHARGE PLAN: Mr. Redmond will be discharged to home. CONDITION: Good. DIET: 1. Heart healthy. 2. ADA/diabetic. ACTIVITY: 1. Nonweightbearing, left lower extremity. 2. Continue physical therapy. MEDICATIONS: [place] [facility] [place] [facility] [place]30 [place] 12[place]28. EDUCATION: 1. Daily weights q.a.m. If you experience greater than 5-pound weight gain, consult your primary care provider. 2. Recheck INR in 3 to 5 days and follow up with primary care provider. 3. Follow up with Dr. Brown, Orthopedics, next week for dressing changes. 4. Follow up with primary care provider in 4 to 7 days, discuss recent hospitalization, PVD of left lower extremity, enlarged prostate results on MRI, medication changes. 5. Follow up with Dr. Akins, Infectious Disease, in 1 to 2 weeks. 6. Follow up with Vascular Surgery as needed if wound does not heal. Discuss this with primary care provider. 7. Return to the ER or nearest hospital if you experience any return or worsening of symptoms, increased left foot drainage, erythema, worsening pain, high fevers, chills, night sweats, return for chest pain, shortness of breath, dizziness, lightheadedness, loss of consciousness, or any other worrisome signs or symptoms. This is a summarized report of a complex medical history and hospital stay. For further details, please see the entire medical record. TIME SPENT: Approximately 40 minutes were spent on this discharge, greater than half that time was spent [id number] with the patient discussing discharge plans and instructions. KO BARBA [id number]/[facility] #: [id number] [place]
[2019-12-27 14:40] VITALS: BP 121/47
== END 2019-12-27 14:00 | disposition home health service (06) | DRG 616 ==
LOC: ED 10:35 → MED 13:14
PROVIDERS: ADMIT Nurse Practitioner; ATTEND Hospitalist
PROC: 0Y6N0ZF Detachment at Left Foot, Partial 5th Ray, Open Approach (ICD-10-PCS; principal; 2019-12-20)
DX: E11.69 Type 2 diabetes mellitus with other specified complication (principal); I50.33 Acute on chronic diastolic (congestive) heart failure; L03.116 Cellulitis of left lower limb; E87.1 Hypo-osmolality and hyponatremia; C91.10 Chronic lymphocytic leukemia of B-cell type not having achieved remission; I48.20 Chronic atrial fibrillation, unspecified; M86.672 Other chronic osteomyelitis, left ankle and foot; E11.51 Type 2 diabetes mellitus with diabetic peripheral angiopathy without gangrene; E78.00 Pure hypercholesterolemia, unspecified; I87.2 Venous insufficiency (chronic) (peripheral); R00.1 Bradycardia, unspecified; J44.9 Chronic obstructive pulmonary disease, unspecified; N40.0 Benign prostatic hyperplasia without lower urinary tract symptoms; G47.33 Obstructive sleep apnea (adult) (pediatric); 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 heart failure; E78.5 Hyperlipidemia, unspecified; E66.01 Morbid (severe) obesity due to excess calories; B96.5 Pseudomonas (aeruginosa) (mallei) (pseudomallei) as the cause of diseases classified elsewhere; B95.7 Other staphylococcus as the cause of diseases classified elsewhere; E11.40 Type 2 diabetes mellitus with diabetic neuropathy, unspecified; D64.9 Anemia, unspecified; M25.552 Pain in left hip; Z79.899 Other long term (current) drug therapy; Z79.82 Long term (current) use of aspirin; Z95.2 Presence of prosthetic heart valve; Z79.01 Long term (current) use of anticoagulants; Z88.8 Allergy status to other drugs, medicaments and biological substances; Z88.0 Allergy status to penicillin; Z91.018 Allergy to other foods; Z87.891 Personal history of nicotine dependence; Z89.422 Acquired absence of other left toe(s); Z28.21 Immunization not carried out because of patient refusal; Z68.31 Body mass index [BMI] 31.0-31.9, adult
CPT/HCPCS: 36415; 71046; 80048; 80053; 80202; 81003; 81015; 82607; 82728; 82746; 83540; 83550; 83735; 83880; 85025; 85610; 85730; 86140; 87040; 87070; 87073; 87077; 87086; 87186; 87205; 87640; 87641; 88304; 88311; 93005; 93970; 94640; 99284; A9270-GY; J0692; J1940; J2250; J2270; J3010; J3370; J7512

== ENCOUNTER 2020-08-28 11:21 | Inpatient (IN) ==
[2020-08-28 12:31] LABS: ABS Lymphocytes 0.3 10^3/ul (1.0-4.8); ABS Monocytes 0.3 10^3/ul (0-0.8); ABS Neutrophils 5.4 10^3/ul (1.5-7.7); Eosinophil % 0.2 %; Hematocrit 31 % (42-52); Lymphocyte % 4.7 %; Mean Corpuscular HGB Conc 33 g/dL (31-36); Mean Corpuscular Hemoglobin 27 pg (27-31); Mean Corpuscular Volume 83 fL (80-94); Mean Platelet Volume 7.4 fL (7.4-10.4); Platelet Count 197 10^3/uL (150-450); Red Blood Count 3.72 10^6 /uL (4.18-5.48); Red Cell Distribution Width 16 % (10-15)
[2020-08-28 12:49] LABS: Albumin 3.9 g/dL (3.2-5.2); Albumin/Globulin Ratio 1.3 (1-3); BUN/Creatinine Ratio 25.3 (8-20); Calcium 8.9 mg/dL (8.6-10.3); EGFR African American 100.9 (>60); EGFR Non-African American 83.4 (>60); Globulin 2.9 g/dL (2-4); Potassium 4.7 mmol/L (3.5-5.0); Total Bilirubin 1.1 mg/dL (0.2-1.0); Total Protein 6.8 g/dL (6.4-8.9)
[2020-08-28 13:53] LABS: C Reactive Protein 13.4 mg/L (<8.01)
[2020-08-28] MEDS ORDERED: cefTRIAXone 1 gm/50 mL NS BAG 1 GM/50 ML BAG IV ONE (14:04)
[2020-08-28] MEDS ORDERED: Iodixanol (CONTRAST) 320 MG/ML 100 ML SDV IV ONE (14:17)
[2020-08-28] MEDS ORDERED: Albuterol HFA INHALER 8 gm MDI INH PRN (15:58)
[2020-08-28 19:09] LABS: INR 3.49 (0.82-1.09)
[2020-08-29 07:12] LABS: BUN/Creatinine Ratio 19.5 (8-20); EGFR Non-African American 89.3 (>60); Potassium 4.5 mmol/L (3.5-5.0)
[2020-08-29] MEDS: Mometasone/Formoter 200/5 MDI INH SCH (07:44)
[2020-08-29] MEDS: Aspirin EC 81 mg TAB.EC (enteric coated) PO SCH (08:36)
[2020-08-29] MEDS: Multivitamins/Minerals TAB PO SCH (08:37)
[2020-08-29] MEDS ORDERED: Albuterol 2.5mg/3 ml (0.083%) NEB.SOLN INH PRN (11:00)
[2020-08-29] MEDS: cefTRIAXone 1 gm/50 mL NS BAG 1 GM/50 ML BAG IVPB SCH (17:27)
[2020-08-30 07:08] LABS: ABS Eosinophils 0.2 10^3/ul (0-0.6); ABS Lymphocytes 1.1 10^3/ul (1.0-4.8); ABS Monocytes 0.9 10^3/ul (0-0.8); ABS Neutrophils 3.8 10^3/ul (1.5-7.7); Eosinophil % 3.8 %; Hematocrit 30 % (42-52); Hemoglobin 10.1 g/dL (14.0-18.0); Mean Corpuscular HGB Conc 33 g/dL (31-36); Mean Corpuscular Hemoglobin 28 pg (27-31); Mean Corpuscular Volume 83 fL (80-94); Mean Platelet Volume 7.3 fL (7.4-10.4); Platelet Count 192 10^3/uL (150-450); Red Blood Count 3.67 10^6 /uL (4.18-5.48); Red Cell Distribution Width 16 % (10-15)
[2020-08-30 07:26] LABS: INR 2.8 (0.82-1.09)
[2020-08-30] MEDS: Mometasone/Formoter 200/5 MDI INH SCH (07:27)
[2020-08-30] MEDS: Aspirin EC 81 mg TAB.EC (enteric coated) PO SCH (09:56)
[2020-08-30] MEDS: Multivitamins/Minerals TAB PO SCH (09:56)
[2020-08-30] MEDS: cefTRIAXone 1 gm/50 mL NS BAG 1 GM/50 ML BAG IVPB SCH (18:07)
[2020-08-31] MEDS: Mometasone/Formoter 200/5 MDI INH SCH (07:34)
[2020-08-31] MEDS: Multivitamins/Minerals TAB PO SCH (08:49)
[2020-08-31] MEDS: Aspirin EC 81 mg TAB.EC (enteric coated) PO SCH (08:49)
[2020-08-31] MEDS: cefTRIAXone 1 gm/50 mL NS BAG 1 GM/50 ML BAG IVPB SCH (15:59)
[2020-08-31] MEDS ORDERED: Warfarin DAILY REMINDER **NOTE FOLLOW UP SCH (17:00)
[2020-08-31 17:32] VITALS: BP 136/51
== END 2020-08-31 17:00 | disposition home or self-care (01) | DRG 603 ==
LOC: MED 11:21 → ED 11:21 → OBSVTOIN 14:02 → MED 16:40
PROVIDERS: ADMIT Hospitalist; ATTEND Internal Medicine

== ENCOUNTER 2021-04-14 14:15 | Inpatient (IN) ==
[2021-04-14 15:13] LABS: ABS Eosinophils 0.1 10^3/ul (0-0.6); ABS Lymphocytes 0.9 10^3/ul (1.0-4.8); ABS Monocytes 0.6 10^3/ul (0-0.8); ABS Neutrophils 4.7 10^3/ul (1.5-7.7); Eosinophil % 1.1 %; Hematocrit 32 % (42-52); Hemoglobin 10.4 g/dL (14.0-18.0); Lymphocyte % 14.3 %; Mean Corpuscular HGB Conc 32 g/dL (31-36); Mean Corpuscular Hemoglobin 27 pg (27-31); Mean Corpuscular Volume 83 fL (80-94); Mean Platelet Volume 8.3 fL (7.4-10.4); Platelet Count 145 10^3/uL (150-450); Red Blood Count 3.89 10^6 /uL (4.18-5.48); Red Cell Distribution Width 18 % (10-15); White Blood Count 6.4 10^3/uL (3.5-10.8)
[2021-04-14 15:40] LABS: Troponin I 0.07 ng/mL (<0.03)
[2021-04-14 16:03] LABS: ALT 27 U/L (7-52); AST 33 U/L (13-39); Albumin 4.1 g/dL (3.2-5.2); Albumin/Globulin Ratio 1.7 (1-3); Alkaline Phosphatase 90 U/L (35-149); Anion Gap 7 mmol/L (2-11); Blood Urea Nitrogen 27 mg/dL (6-24); CO2 Carbon Dioxide 26 mmol/L (22-32); Chloride 105 mmol/L (101-111); EGFR African American 96.8 (>60); Globulin 2.4 g/dL (2-4); Glucose 100 mg/dL (70-100); Potassium 4.4 mmol/L (3.5-5.0); Sodium 138 mmol/L (135-145); Total Protein 6.5 g/dL (6.4-8.9)
[2021-04-14] MEDS ORDERED: Furosemide 40 mg/4 ml IV VIAL IV SLOW PU ONE (16:04)
[2021-04-14] MEDS ORDERED: Ondansetron 4 mg VIAL 2 MG/ML 2 ml VIAL IV PRN (17:18)
[2021-04-14] MEDS ORDERED: Al Hydrox/Mg Hydrox/Simet LIQ 30 ML UDC PO PRN (17:18)
[2021-04-14] MEDS ORDERED: Albuterol 2.5mg/3 ml (0.083%) NEB.SOLN INH PRN (17:21)
[2021-04-14] MEDS ORDERED: Albuterol/Ipratropium NEB.SOL (2.5/0.5 MG) 3 ML NEB.SOLN INH SCH (18:00)
[2021-04-14] MEDS ORDERED: Warfarin per PHARMACY **NOTE FOLLOW UP SCH (18:00)
[2021-04-14 18:18] LABS: INR 3.01 (0.82-1.09)
[2021-04-14] MEDS: Albuterol/Ipratropium NEB.SOL (2.5/0.5 MG) 3 ML NEB.SOLN INH SCH ×2 (22:14→23:41)
[2021-04-14 22:23] LABS: Troponin I 0.06 ng/mL (<0.03)
[2021-04-15] MEDS ORDERED: hydrALAZINE 20 mg/ml 1 ML Vial IV IV SLOW PU PRN (00:44)
[2021-04-15 03:22] LABS: ABS Basophils 0.1 10^3/ul (0-0.2); ABS Lymphocytes 0.3 10^3/ul (1.0-4.8); ABS Monocytes 0.1 10^3/ul (0-0.8); ABS Neutrophils 6.4 10^3/ul (1.5-7.7); Hematocrit 32 % (42-52); Hemoglobin 10.4 g/dL (14.0-18.0); Lymphocyte % 5.1 %; Mean Corpuscular HGB Conc 33 g/dL (31-36); Mean Corpuscular Hemoglobin 27 pg (27-31); Mean Corpuscular Volume 83 fL (80-94); Mean Platelet Volume 8.6 fL (7.4-10.4); Platelet Count 136 10^3/uL (150-450); Red Blood Count 3.81 10^6 /uL (4.18-5.48); Red Cell Distribution Width 18 % (10-15); White Blood Count 6.9 10^3/uL (3.5-10.8)
[2021-04-15 03:39] LABS: Anion Gap 10 mmol/L (2-11); Blood Urea Nitrogen 31 mg/dL (6-24); CO2 Carbon Dioxide 24 mmol/L (22-32); Calcium 8.8 mg/dL (8.6-10.3); Chloride 101 mmol/L (101-111); EGFR African American 76.8 (>60); EGFR Non-African American 63.5 (>60); Glucose 253 mg/dL (70-100); Potassium 4.6 mmol/L (3.5-5.0); Sodium 135 mmol/L (135-145)
[2021-04-15 03:46] LABS: Troponin I 0.06 ng/mL (<0.03)
[2021-04-15] MEDS: Albuterol/Ipratropium NEB.SOL (2.5/0.5 MG) 3 ML NEB.SOLN INH SCH ×3 (07:41→20:29)
[2021-04-15] MEDS: Mometasone/Formoter 200/5 MDI INH SCH ×2 (07:41→21:16)
[2021-04-15] MEDS: Aspirin EC 81 mg TAB.EC (enteric coated) PO SCH (09:13)
[2021-04-15] MEDS: Furosemide 40 mg/4 ml IV VIAL IV SCH ×2 (09:14→17:07)
[2021-04-15 13:20] LABS: INR 3.61 (0.82-1.09)
[2021-04-15] MEDS ORDERED: Warfarin - No Order Today **NOTE FOLLOW UP ONE (14:00)
[2021-04-15] MEDS ORDERED: Perflutren Lipid Microsphere 3 ML VIAL ONE (15:58)
[2021-04-15 20:36] LABS: Magnesium 2.2 mg/dL (1.9-2.7)
[2021-04-15] MEDS ORDERED: Albuterol/Ipratropium NEB.SOL (2.5/0.5 MG) 3 ML NEB.SOLN INH PRN (22:38)
[2021-04-16] MEDS: Mometasone/Formoter 200/5 MDI INH SCH ×2 (07:56→19:57)
[2021-04-16] MEDS: Furosemide 40 mg/4 ml IV VIAL IV SCH ×2 (08:58→17:08)
[2021-04-16] MEDS: Aspirin EC 81 mg TAB.EC (enteric coated) PO SCH (08:58)
[2021-04-16 12:10] LABS: INR 4.12 (0.82-1.09)
[2021-04-16] MEDS ORDERED: Warfarin - No Order Today **NOTE FOLLOW UP ONE (13:00)
[2021-04-16] MEDS: methylPREDNISolone SOD 40 mg/ml 1 ml VIAL IV SCH (21:28)
[2021-04-17 06:27] LABS: ABS Lymphocytes 0.5 10^3/ul (1.0-4.8); ABS Monocytes 0.3 10^3/ul (0-0.8); ABS Neutrophils 8.1 10^3/ul (1.5-7.7); Hematocrit 33 % (42-52); Hemoglobin 10.8 g/dL (14.0-18.0); Lymphocyte % 5.1 %; Mean Corpuscular HGB Conc 32 g/dL (31-36); Mean Corpuscular Hemoglobin 27 pg (27-31); Mean Corpuscular Volume 83 fL (80-94); Mean Platelet Volume 8.4 fL (7.4-10.4); Platelet Count 155 10^3/uL (150-450); Red Blood Count 4.02 10^6 /uL (4.18-5.48); Red Cell Distribution Width 17 % (10-15); White Blood Count 8.9 10^3/uL (3.5-10.8)
[2021-04-17 06:30] LABS: INR 3.83 (0.82-1.09)
[2021-04-17 06:40] LABS: Calcium 8.6 mg/dL (8.6-10.3); EGFR Non-African American 84.3 (>60); Potassium 4.4 mmol/L (3.5-5.0)
[2021-04-17] MEDS: Mometasone/Formoter 200/5 MDI INH SCH ×2 (07:36→19:23)
[2021-04-17] MEDS: methylPREDNISolone SOD 40 mg/ml 1 ml VIAL IV SCH ×2 (08:48→20:23)
[2021-04-17] MEDS: Aspirin EC 81 mg TAB.EC (enteric coated) PO SCH (08:48)
[2021-04-17] MEDS: Furosemide 40 mg/4 ml IV VIAL IV SCH ×2 (08:48→17:49)
[2021-04-17] MEDS ORDERED: Warfarin - No Order Today **NOTE FOLLOW UP ONE (17:00)
[2021-04-18] MEDS ORDERED: Magnesium Sulfate IV 1GM/100ML 1 GM/100 ML BAG IV ONE (03:59)
[2021-04-18 05:39] LABS: INR 2.87 (0.82-1.09)
[2021-04-18 07:01] LABS: Calcium 8.8 mg/dL (8.6-10.3); Magnesium 2.3 mg/dL (1.9-2.7); Potassium 4.1 mmol/L (3.5-5.0)
[2021-04-18 07:06] LABS: EGFR African American 98.1 (>60)
[2021-04-18] MEDS: Mometasone/Formoter 200/5 MDI INH SCH (07:11)
[2021-04-18] MEDS: methylPREDNISolone SOD 40 mg/ml 1 ml VIAL IV SCH (09:24)
[2021-04-18] MEDS: Furosemide 40 mg/4 ml IV VIAL IV SCH (09:24)
[2021-04-18] MEDS: Aspirin EC 81 mg TAB.EC (enteric coated) PO SCH (09:27)
[2021-04-18 12:27] VITALS: BP 136/55
[2021-04-19] MEDS ORDERED: Furosemide 40 mg/4 ml IV VIAL IV SCH (08:00)
== END 2021-04-18 14:45 | disposition home or self-care (01) | DRG 291 ==
LOC: ED 14:15 → MEDTELE 17:18
PROVIDERS: ADMIT Hospitalist; ATTEND Hospitalist

== ENCOUNTER 2021-06-29 15:01 | Inpatient (IN) ==
[2021-06-29] MEDS ORDERED: Albuterol/Ipratropium NEB.SOL (2.5/0.5 MG) 3 ML NEB.SOLN INH ONE ×2 (16:21→17:52)
[2021-06-29 17:54] LABS: ALT 27 U/L (7-52); AST 33 U/L (13-39); Albumin 4.2 g/dL (3.2-5.2); Albumin/Globulin Ratio 1.5 (1-3); Alkaline Phosphatase 89 U/L (35-149); Blood Urea Nitrogen 18 mg/dL (6-24); CO2 Carbon Dioxide 27 mmol/L (22-32); Calcium 9.1 mg/dL (8.6-10.3); Chloride 95 mmol/L (101-111); EGFR African American 125.2 (>60); EGFR Non-African American 103.5 (>60); Globulin 2.8 g/dL (2-4); Glucose 141 mg/dL (70-100); Sodium 125 mmol/L (135-145)
[2021-06-29 18:11] LABS: Anion Gap 3 mmol/L (2-11); Potassium 5.2 mmol/L (3.5-5.0)
[2021-06-29 18:13] LABS: Troponin I 0.06 ng/mL (<0.03)
[2021-06-29] MEDS ORDERED: Iodixanol (CONTRAST) 320 MG/ML 100 ML SDV IV ONE (18:25)
[2021-06-29 18:59] LABS: ABS Lymphocytes 0.9 10^3/ul (1.0-4.8); ABS Neutrophils 8.2 10^3/ul (1.5-7.7); Eosinophil % 0.4 %; Hematocrit 32 % (42-52); Hemoglobin 10.2 g/dL (14.0-18.0); Lymphocyte % 9.2 %; Mean Corpuscular HGB Conc 32 g/dL (31-36); Mean Corpuscular Hemoglobin 27 pg (27-31); Mean Corpuscular Volume 85 fL (80-94); Mean Platelet Volume 7.3 fL (7.4-10.4); Platelet Count 224 10^3/uL (150-450); Red Blood Count 3.72 10^6 /uL (4.18-5.48); Red Cell Distribution Width 18 % (10-15); White Blood Count 10.2 10^3/uL (3.5-10.8)
[2021-06-29 19:01] LABS: INR 2.11 (0.86-1.15)
[2021-06-29] MEDS ORDERED: Furosemide 40 mg/4 ml IV VIAL IV ONE (20:34)
[2021-06-29] MEDS ORDERED: Albuterol HFA INHALER 8 gm MDI INH PRN (22:22)
[2021-06-29] MEDS ORDERED: Triamcinolone 0.5% OINT 1 TUBE TOPICAL PRN (22:22)
[2021-06-29 22:59] LABS: PCO2 Arterial 38 mmHg (35-45); PO2 Arterial 98 mmHg (80-100)
[2021-06-29 23:40] LABS: Calcium 8.7 mg/dL (8.6-10.3); EGFR Non-African American 84.3 (>60); Magnesium 1.8 mg/dL (1.9-2.7); Potassium 4.3 mmol/L (3.5-5.0)
[2021-06-30] MEDS ORDERED: Magnesium Sulfate 2 gm BAG 2 GM/50 ML BAG IVPB ONE (00:17)
[2021-06-30] MEDS: Albuterol 2.5mg/3 ml (0.083%) NEB.SOLN INH SCH ×3 (05:06→15:44)
[2021-06-30 06:36] LABS: Hematocrit 29 % (42-52); Hemoglobin 9.5 g/dL (14.0-18.0); Mean Corpuscular HGB Conc 33 g/dL (31-36); Mean Corpuscular Hemoglobin 28 pg (27-31); Mean Corpuscular Volume 84 fL (80-94); Mean Platelet Volume 7.2 fL (7.4-10.4); Platelet Count 195 10^3/uL (150-450); Red Blood Count 3.41 10^6 /uL (4.18-5.48); Red Cell Distribution Width 18 % (10-15); White Blood Count 7.9 10^3/uL (3.5-10.8)
[2021-06-30 06:53] LABS: Calcium 8.7 mg/dL (8.6-10.3); EGFR African American 95.6 (>60); Magnesium 2.3 mg/dL (1.9-2.7); Potassium 4.4 mmol/L (3.5-5.0)
[2021-06-30] MEDS ORDERED: Furosemide 20 mg/2 ml IV VIAL IV ONE (07:45)
[2021-06-30] MEDS: Mometasone/Formoter 200/5 MDI INH SCH ×2 (08:03→20:18)
[2021-06-30] MEDS: Aspirin EC 81 mg TAB.EC (enteric coated) PO SCH (08:28)
[2021-06-30] MEDS ORDERED: Warfarin per PHARMACY **NOTE FOLLOW UP SCH (09:00)
[2021-06-30] MEDS: Warfarin DAILY REMINDER **NOTE FOLLOW UP SCH (17:51)
[2021-06-30] MEDS ORDERED: Albuterol/Ipratropium NEB.SOL (2.5/0.5 MG) 3 ML NEB.SOLN INH SCH (19:00)
[2021-06-30] MEDS: Albuterol HFA INHALER 8 gm MDI INH SCH (20:18)
[2021-07-01] MEDS: Albuterol HFA INHALER 8 gm MDI INH SCH ×2 (02:16→13:17)
[2021-07-01 05:31] LABS: ABS Basophils 0.1 10^3/ul (0-0.2); ABS Eosinophils 0.2 10^3/ul (0-0.6); ABS Lymphocytes 1.4 10^3/ul (1.0-4.8); ABS Monocytes 0.9 10^3/ul (0-0.8); ABS Neutrophils 4.1 10^3/ul (1.5-7.7); Eosinophil % 3.5 %; Hematocrit 28 % (42-52); Hemoglobin 9.1 g/dL (14.0-18.0); Lymphocyte % 20.6 %; Mean Corpuscular HGB Conc 33 g/dL (31-36); Mean Corpuscular Hemoglobin 28 pg (27-31); Mean Corpuscular Volume 85 fL (80-94); Mean Platelet Volume 7.3 fL (7.4-10.4); Platelet Count 203 10^3/uL (150-450); Red Cell Distribution Width 18 % (10-15); White Blood Count 6.6 10^3/uL (3.5-10.8)
[2021-07-01 05:39] LABS: INR 2.66 (0.86-1.15)
[2021-07-01 05:47] LABS: Anion Gap 5 mmol/L (2-11); Blood Urea Nitrogen 21 mg/dL (6-24); CO2 Carbon Dioxide 29 mmol/L (22-32); Calcium 8.6 mg/dL (8.6-10.3); Chloride 99 mmol/L (101-111); EGFR African American 93.2 (>60); Glucose 108 mg/dL (70-100); Magnesium 2.2 mg/dL (1.9-2.7); Potassium 4.3 mmol/L (3.5-5.0); Sodium 133 mmol/L (135-145)
[2021-07-01 07:44] LABS: Troponin I 0.07 ng/mL (<0.03)
[2021-07-01] MEDS: Mometasone/Formoter 200/5 MDI INH SCH ×2 (07:56→19:41)
[2021-07-01] MEDS: Albuterol/Ipratropium NEB.SOL (2.5/0.5 MG) 3 ML NEB.SOLN INH SCH ×3 (07:56→19:40)
[2021-07-01] MEDS: Aspirin EC 81 mg TAB.EC (enteric coated) PO SCH (08:20)
[2021-07-01] MEDS: Furosemide 40 mg/4 ml IV VIAL IV SCH (08:30)
[2021-07-01] MEDS: Azithromycin 500 mg/250 ml NS 500 MG/250 ML BAG IVPB SCH (11:58)
[2021-07-01] MEDS: Warfarin DAILY REMINDER **NOTE FOLLOW UP SCH (16:54)
[2021-07-02] MEDS: Albuterol/Ipratropium NEB.SOL (2.5/0.5 MG) 3 ML NEB.SOLN INH SCH ×4 (02:23→16:09)
[2021-07-02 06:04] LABS: ABS Lymphocytes 0.8 10^3/ul (1.0-4.8); ABS Monocytes 0.8 10^3/ul (0-0.8); ABS Neutrophils 6.1 10^3/ul (1.5-7.7); Eosinophil % 0.2 %; Hematocrit 29 % (42-52); Hemoglobin 9.4 g/dL (14.0-18.0); Lymphocyte % 10.8 %; Mean Corpuscular HGB Conc 33 g/dL (31-36); Mean Corpuscular Hemoglobin 28 pg (27-31); Mean Corpuscular Volume 84 fL (80-94); Mean Platelet Volume 7.3 fL (7.4-10.4); Platelet Count 193 10^3/uL (150-450); Red Cell Distribution Width 18 % (10-15); White Blood Count 7.8 10^3/uL (3.5-10.8)
[2021-07-02 06:19] LABS: INR 2.78 (0.86-1.15)
[2021-07-02 06:26] LABS: Anion Gap 7 mmol/L (2-11); Blood Urea Nitrogen 24 mg/dL (6-24); CO2 Carbon Dioxide 28 mmol/L (22-32); Calcium 8.6 mg/dL (8.6-10.3); Chloride 98 mmol/L (101-111); EGFR African American 104.8 (>60); EGFR Non-African American 86.6 (>60); Glucose 118 mg/dL (70-100); Magnesium 2.2 mg/dL (1.9-2.7); Potassium 4.2 mmol/L (3.5-5.0); Sodium 133 mmol/L (135-145)
[2021-07-02] MEDS: Mometasone/Formoter 200/5 MDI INH SCH (07:04)
[2021-07-02] MEDS ORDERED: Saline NASAL SPRAY 0.65% BTL BOTH NARES PRN (07:15)
[2021-07-02 08:04] LABS: Troponin I 0.06 ng/mL (<0.03)
[2021-07-02] MEDS: Aspirin EC 81 mg TAB.EC (enteric coated) PO SCH (08:12)
[2021-07-02] MEDS: Furosemide 40 mg/4 ml IV VIAL IV SCH (08:25)
[2021-07-02] MEDS: Azithromycin 500 mg/250 ml NS 500 MG/250 ML BAG IVPB SCH (10:35)
[2021-07-02 15:02] VITALS: BP 152/62
== END 2021-07-02 16:39 | disposition home or self-care (01) | DRG 291 ==
LOC: ED 15:01 → MEDTELE 22:16 → SUATTDRO 22:16 → MEDTELE 06-30 01:21
PROVIDERS: ADMIT Internal Medicine; ATTEND Internal Medicine

== ENCOUNTER 2021-11-18 00:34 | Inpatient (IN) ==
[2021-11-18 01:33] LABS: ABS Basophils 0.1 10^3/ul (0-0.2); ABS Eosinophils 0.2 10^3/ul (0-0.6); ABS Neutrophils 4.5 10^3/ul (1.5-7.7); Eosinophil % 3.1 %; Hematocrit 24 % (42-52); Hemoglobin 8.1 g/dL (14.0-18.0); Lymphocyte % 14.5 %; Mean Corpuscular HGB Conc 34 g/dL (31-36); Mean Corpuscular Hemoglobin 26 pg (27-31); Mean Corpuscular Volume 77 fL (80-94); Mean Platelet Volume 7.3 fL (7.4-10.4); Nucleated Red Blood Cells % 0.1; Platelet Count 238 10^3/uL (150-450); Red Cell Distribution Width 18 % (10-15); White Blood Count 6.8 10^3/uL (3.5-10.8)
[2021-11-18 01:43] LABS: Activated Partial Thrombo Time 40.1 seconds (26.0-38.0); INR 2.52 (0.86-1.15)
[2021-11-18 01:45] LABS: ALT 25 U/L (7-52); AST 28 U/L (13-39); Albumin 3.9 g/dL (3.2-5.2); Albumin/Globulin Ratio 1.7 (1-3); Alkaline Phosphatase 88 U/L (35-149); Anion Gap 5 mmol/L (2-11); Blood Urea Nitrogen 23 mg/dL (6-24); C Reactive Protein 3.96 mg/L (<8.01); CO2 Carbon Dioxide 25 mmol/L (22-32); Calcium 8.4 mg/dL (8.6-10.3); Chloride 91 mmol/L (101-111); Creatine Kinase 275 U/L (10-223); Globulin 2.3 g/dL (2-4); Glucose 127 mg/dL (70-100); Potassium 4.6 mmol/L (3.5-5.0); Sodium 121 mmol/L (135-145); Total Protein 6.2 g/dL (6.4-8.9); eGFR CKD-EPI 74.2 (>60)
[2021-11-18 02:06] LABS: Urine Appearance Clear; Urine Bilirubin Negative (Negative); Urine Blood Negative (Negative); Urine Color Yellow; Urine Glucose Negative (Negative); Urine Ketones Negative (Negative); Urine Nitrite Negative (Negative); Urine Protein 1+(30 mg/dL) (Negative); Urine Specific Gravity 1.018 (1.002-1.030); Urine Urobilinogen Negative (Negative)
[2021-11-18 02:09] LABS: Urine Bacteria Absent (Absent); Urine Red Blood Cell Trace(0-2/hpf) (Absent); Urine White Blood Cell Absent (Absent)
[2021-11-18] MEDS ORDERED: Furosemide 20 mg/2 ml IV VIAL IV ONE (03:51)
[2021-11-18 04:05] LABS: Troponin I 0.06 ng/mL (<0.03)
[2021-11-18 04:55] LABS: TSH Ultra Thyroid Stim Horm 8.46 mcIU/mL (0.34-5.60)
[2021-11-18 05:08] LABS: Osmolality Serum 266 mOsm/kg (275-295)
[2021-11-18 05:08] LABS: Urine Osmo 584 mOsm/kg (150-1150)
[2021-11-18] MEDS ORDERED: Albuterol/Ipratropium NEB.SOL (2.5/0.5 MG) 3 ML NEB.SOLN INH PRN (05:22)
[2021-11-18] MEDS ORDERED: Warfarin per PHARMACY **NOTE FOLLOW UP SCH (06:00)
[2021-11-18 06:37] LABS: Hematocrit 23 % (42-52); Hemoglobin 7.5 g/dL (14.0-18.0); Mean Corpuscular HGB Conc 33 g/dL (31-36); Mean Corpuscular Hemoglobin 26 pg (27-31); Mean Corpuscular Volume 78 fL (80-94); Mean Platelet Volume 7.4 fL (7.4-10.4); Platelet Count 228 10^3/uL (150-450); Red Blood Count 2.93 10^6 /uL (4.18-5.48); Red Cell Distribution Width 18 % (10-15); White Blood Count 6.8 10^3/uL (3.5-10.8)
[2021-11-18 06:59] LABS: Calcium 8.2 mg/dL (8.6-10.3); Potassium 4.2 mmol/L (3.5-5.0); eGFR CKD-EPI 78.9 (>60)
[2021-11-18 07:17] LABS: Troponin I 0.06 ng/mL (<0.03)
[2021-11-18 07:53] LABS: INR 2.7 (0.86-1.15)
[2021-11-18] MEDS: Furosemide 40 mg/4 ml IV VIAL IV SCH (09:37)
[2021-11-18] MEDS: Aspirin EC 81 mg TAB.EC (enteric coated) PO SCH (09:39)
[2021-11-18] MEDS: Potassium Chlor 20 meq TAB.ER PO SCH (09:41)
[2021-11-18] MEDS: Mometasone/Formoter 200/5 MDI INH SCH ×2 (10:54→19:32)
[2021-11-18 15:00] LABS: Hematocrit 24 % (42-52); Hemoglobin 7.7 g/dL (14.0-18.0)
[2021-11-18] MEDS: Albuterol HFA INHALER 8 gm MDI INH PRN (15:30)
[2021-11-18] MEDS: methylPREDNISolone SOD 40 mg/ml 1 ml VIAL IV SCH (16:18)
[2021-11-18] MEDS ORDERED: Warfarin DAILY REMINDER **NOTE FOLLOW UP SCH (17:00)
[2021-11-19] MEDS: methylPREDNISolone SOD 40 mg/ml 1 ml VIAL IV SCH ×2 (03:22→14:55)
[2021-11-19 05:48] LABS: Hematocrit 25 % (42-52); Hemoglobin 8.1 g/dL (14.0-18.0); Mean Corpuscular HGB Conc 33 g/dL (31-36); Mean Corpuscular Hemoglobin 26 pg (27-31); Mean Corpuscular Volume 78 fL (80-94); Mean Platelet Volume 7.2 fL (7.4-10.4); Platelet Count 261 10^3/uL (150-450); Red Blood Count 3.16 10^6 /uL (4.18-5.48); Red Cell Distribution Width 18 % (10-15); White Blood Count 5.6 10^3/uL (3.5-10.8)
[2021-11-19 05:53] LABS: INR 2.68 (0.86-1.15)
[2021-11-19 06:07] LABS: Calcium 8.6 mg/dL (8.6-10.3); Potassium 4.9 mmol/L (3.5-5.0); eGFR CKD-EPI 83.7 (>60)
[2021-11-19] MEDS: Aspirin EC 81 mg TAB.EC (enteric coated) PO SCH (09:04)
[2021-11-19] MEDS: Potassium Chlor 20 meq TAB.ER PO SCH (09:06)
[2021-11-19] MEDS: Furosemide 40 mg/4 ml IV VIAL IV SCH ×2 (09:07→14:55)
[2021-11-19 09:43] LABS: Ferritin 37.5 ng/mL (24-336)
[2021-11-19] MEDS: Mometasone/Formoter 200/5 MDI INH SCH ×2 (10:15→19:46)
[2021-11-19] MEDS: Albuterol/Ipratropium NEB.SOL (2.5/0.5 MG) 3 ML NEB.SOLN INH SCH ×3 (11:45→22:24)
[2021-11-19] MEDS: cefTRIAXone 1 gm/50 mL NS BAG 1 GM/50 ML BAG IVPB SCH (12:25)
[2021-11-19] MEDS: Albuterol HFA INHALER 8 gm MDI INH PRN (19:46)
[2021-11-20] MEDS: methylPREDNISolone SOD 40 mg/ml 1 ml VIAL IV SCH ×2 (03:53→14:22)
[2021-11-20 06:20] LABS: INR 2.76 (0.86-1.15)
[2021-11-20] MEDS: Mometasone/Formoter 200/5 MDI INH SCH ×2 (08:51→20:11)
[2021-11-20] MEDS: Albuterol HFA INHALER 8 gm MDI INH PRN ×2 (08:55→20:12)
[2021-11-20] MEDS: Albuterol/Ipratropium NEB.SOL (2.5/0.5 MG) 3 ML NEB.SOLN INH SCH (08:55)
[2021-11-20] MEDS: Furosemide 40 mg/4 ml IV VIAL IV SCH (09:38)
[2021-11-20] MEDS: Aspirin EC 81 mg TAB.EC (enteric coated) PO SCH (09:38)
[2021-11-20] MEDS: Potassium Chlor 20 meq TAB.ER PO SCH (09:41)
[2021-11-20] MEDS: cefTRIAXone 1 gm/50 mL NS BAG 1 GM/50 ML BAG IVPB SCH (12:10)
[2021-11-20] MEDS: DOXYcycline 100 MG in NS 0.9% 250 ml 250 ML IVPB SCH (14:22)
[2021-11-20] MEDS ORDERED: Benzocaine/Menthol LOZ PO PRN (15:59)
[2021-11-20] MEDS: SPIRIVA Respimat (tiotropium) 2.5 mcg/inh Inhaler INH SCH (20:20)
[2021-11-21] MEDS: methylPREDNISolone SOD 40 mg/ml 1 ml VIAL IV SCH ×2 (02:16→14:25)
[2021-11-21] MEDS: DOXYcycline 100 MG in NS 0.9% 250 ml 250 ML IVPB SCH ×2 (02:17→14:25)
[2021-11-21 06:18] LABS: ABS Lymphocytes 0.5 10^3/ul (1.0-4.8); ABS Monocytes 0.4 10^3/ul (0-0.8); ABS Neutrophils 9.5 10^3/ul (1.5-7.7); Hematocrit 24 % (42-52); Hemoglobin 7.9 g/dL (14.0-18.0); Lymphocyte % 5.1 %; Mean Corpuscular HGB Conc 33 g/dL (31-36); Mean Corpuscular Hemoglobin 26 pg (27-31); Mean Corpuscular Volume 78 fL (80-94); Mean Platelet Volume 7.2 fL (7.4-10.4); Platelet Count 249 10^3/uL (150-450); Red Blood Count 3.09 10^6 /uL (4.18-5.48); Red Cell Distribution Width 18 % (10-15); White Blood Count 10.5 10^3/uL (3.5-10.8)
[2021-11-21 06:24] LABS: INR 3.63 (0.86-1.15)
[2021-11-21 06:39] LABS: Anion Gap 7 mmol/L (2-11); Blood Urea Nitrogen 38 mg/dL (6-24); CO2 Carbon Dioxide 25 mmol/L (22-32); Calcium 8.6 mg/dL (8.6-10.3); Chloride 93 mmol/L (101-111); Glucose 170 mg/dL (70-100); Magnesium 2.2 mg/dL (1.9-2.7); Sodium 125 mmol/L (135-145); eGFR CKD-EPI 70.7 (>60)
[2021-11-21 06:59] LABS: Iron < 20 ug/dL (50-212)
[2021-11-21] MEDS: Mometasone/Formoter 200/5 MDI INH SCH ×2 (07:20→20:35)
[2021-11-21] MEDS: SPIRIVA Respimat (tiotropium) 2.5 mcg/inh Inhaler INH SCH (07:20)
[2021-11-21 08:11] LABS: Folate > 20.00 ng/mL (5.90-24.80)
[2021-11-21 08:12] LABS: Vitamin B12 730 pg/mL (180-914)
[2021-11-21] MEDS: Potassium Chlor 20 meq TAB.ER PO SCH (09:30)
[2021-11-21] MEDS: Aspirin EC 81 mg TAB.EC (enteric coated) PO SCH (09:30)
[2021-11-21] MEDS: Iron Sucrose 200 MG in NS 0.9% 100 ml BAG 100 ML IVPB SCH (09:51)
[2021-11-21] MEDS: cefTRIAXone 1 gm/50 mL NS BAG 1 GM/50 ML BAG IVPB SCH (12:17)
[2021-11-21 16:35] LABS: % Iron Saturation 5 % (14 - 50); Total Iron Binding Capacity 450 mcg/dL (250 - 400); Transferrin 381 mg/dL (200 - 360)
[2021-11-21] MEDS ORDERED: Warfarin - No Order Today **NOTE FOLLOW UP ONE (17:00)
[2021-11-21] MEDS: Pantoprazole VIAL 40 MG VIAL IV SCH (18:18)
[2021-11-21] MEDS: Albuterol HFA INHALER 8 gm MDI INH PRN (20:33)
[2021-11-22] MEDS: methylPREDNISolone SOD 40 mg/ml 1 ml VIAL IV SCH ×2 (02:27→15:02)
[2021-11-22] MEDS: DOXYcycline 100 MG in NS 0.9% 250 ml 250 ML IVPB SCH ×2 (02:28→15:02)
[2021-11-22 05:16] LABS: Hematocrit 23 % (42-52); Hemoglobin 7.7 g/dL (14.0-18.0)
[2021-11-22 05:23] LABS: INR 4.05 (0.86-1.15)
[2021-11-22 05:31] LABS: Calcium 8.6 mg/dL (8.6-10.3)
[2021-11-22 05:33] LABS: Potassium 5.4 mmol/L (3.5-5.0)
[2021-11-22] MEDS: Pantoprazole VIAL 40 MG VIAL IV SCH ×2 (05:47→17:18)
[2021-11-22] MEDS: SPIRIVA Respimat (tiotropium) 2.5 mcg/inh Inhaler INH SCH (09:28)
[2021-11-22] MEDS: Mometasone/Formoter 200/5 MDI INH SCH ×2 (09:28→20:31)
[2021-11-22] MEDS: Albuterol HFA INHALER 8 gm MDI INH PRN ×2 (09:30→20:34)
[2021-11-22] MEDS: Potassium Chlor 20 meq TAB.ER PO SCH (09:58)
[2021-11-22] MEDS: Aspirin EC 81 mg TAB.EC (enteric coated) PO SCH (09:59)
[2021-11-22] MEDS: Iron Sucrose 200 MG in NS 0.9% 100 ml BAG 100 ML IVPB SCH (10:00)
[2021-11-22] MEDS: cefTRIAXone 1 gm/50 mL NS BAG 1 GM/50 ML BAG IVPB SCH (11:40)
[2021-11-22 11:49] LABS: Magnesium 2.3 mg/dL (1.9-2.7)
[2021-11-22] MEDS: Bumetanide IV 0.25 MG/ML 4 ml VIAL (1 mg) SLOW PUSH SCH ×2 (15:02→21:53)
[2021-11-22] MEDS: Warfarin DAILY REMINDER **NOTE FOLLOW UP SCH (17:23)
[2021-11-22 19:43] LABS: Calcium 8.9 mg/dL (8.6-10.3); Magnesium 2.3 mg/dL (1.9-2.7); Potassium 4.9 mmol/L (3.5-5.0); eGFR CKD-EPI 56.1 (>60)
[2021-11-23] MEDS: methylPREDNISolone SOD 40 mg/ml 1 ml VIAL IV SCH (02:54)
[2021-11-23] MEDS: DOXYcycline 100 MG in NS 0.9% 250 ml 250 ML IVPB SCH (02:54)
[2021-11-23] MEDS ORDERED: Pantoprazole VIAL 40 MG VIAL IV SCH (03:00)
[2021-11-23 05:05] LABS: Hematocrit 23 % (42-52); Hemoglobin 7.6 g/dL (14.0-18.0)
[2021-11-23 05:10] LABS: INR 3.76 (0.86-1.15)
[2021-11-23 05:22] LABS: Calcium 8.4 mg/dL (8.6-10.3); Magnesium 2.1 mg/dL (1.9-2.7); Potassium 4.3 mmol/L (3.5-5.0); eGFR CKD-EPI 60.1 (>60)
[2021-11-23] MEDS: Mometasone/Formoter 200/5 MDI INH SCH ×2 (07:25→19:31)
[2021-11-23] MEDS: SPIRIVA Respimat (tiotropium) 2.5 mcg/inh Inhaler INH SCH (07:28)
[2021-11-23] MEDS: Iron Sucrose 200 MG in NS 0.9% 100 ml BAG 100 ML IVPB SCH (08:22)
[2021-11-23 09:02] LABS: % Iron Saturation 4 % (14 - 50); Total Iron Binding Capacity 453 mcg/dL (250 - 400)
[2021-11-23] MEDS: Bumetanide IV 0.25 MG/ML 4 ml VIAL (1 mg) SLOW PUSH SCH (10:17)
[2021-11-23] MEDS ORDERED: fentaNYL 100 mcg/2 ml 50 MCG/ML VIAL ONE (10:57)
[2021-11-23] MEDS ORDERED: Midazolam 10 mg/10 ml VIAL 1 mg/ml 10 ml VIAL (10 mg) ONE (10:57)
[2021-11-23] MEDS: Aspirin EC 81 mg TAB.EC (enteric coated) PO SCH (13:05)
[2021-11-23] MEDS: cefTRIAXone 1 gm/50 mL NS BAG 1 GM/50 ML BAG IVPB SCH (13:06)
[2021-11-23] MEDS: Potassium Chlor 20 meq TAB.ER PO SCH (14:14)
[2021-11-23] MEDS: Warfarin DAILY REMINDER **NOTE FOLLOW UP SCH (15:43)
[2021-11-24 06:48] LABS: ABS Lymphocytes 1.7 10^3/ul (1.0-4.8); ABS Monocytes 1.3 10^3/ul (0-0.8); ABS Neutrophils 8.2 10^3/ul (1.5-7.7); Eosinophil % 0.1 %; Hematocrit 24 % (42-52); Hemoglobin 7.7 g/dL (14.0-18.0); Lymphocyte % 15.5 %; Mean Corpuscular HGB Conc 33 g/dL (31-36); Mean Corpuscular Hemoglobin 26 pg (27-31); Mean Corpuscular Volume 78 fL (80-94); Mean Platelet Volume 7.3 fL (7.4-10.4); Nucleated Red Blood Cells % 0.1; Platelet Count 222 10^3/uL (150-450); Red Blood Count 3.04 10^6 /uL (4.18-5.48); Red Cell Distribution Width 18 % (10-15); White Blood Count 11.3 10^3/uL (3.5-10.8)
[2021-11-24 07:04] LABS: Calcium 8.4 mg/dL (8.6-10.3); Magnesium 2.1 mg/dL (1.9-2.7); Potassium 4.2 mmol/L (3.5-5.0); eGFR CKD-EPI 70.7 (>60)
[2021-11-24] MEDS: Mometasone/Formoter 200/5 MDI INH SCH ×2 (08:49→21:58)
[2021-11-24] MEDS: SPIRIVA Respimat (tiotropium) 2.5 mcg/inh Inhaler INH SCH (08:50)
[2021-11-24] MEDS: Iron Sucrose 200 MG in NS 0.9% 100 ml BAG 100 ML IVPB SCH (08:53)
[2021-11-24] MEDS: Aspirin EC 81 mg TAB.EC (enteric coated) PO SCH (09:01)
[2021-11-24] MEDS: Potassium Chlor 20 meq TAB.ER PO SCH (09:02)
[2021-11-24] MEDS ORDERED: Dextrose 50% Syringe 50 ml 25 GM/50 ML SYRINGE IV PUSH PRN (16:59)
[2021-11-24] MEDS: Warfarin DAILY REMINDER **NOTE FOLLOW UP SCH (17:02)
[2021-11-25 05:03] LABS: ABS Basophils 0.1 10^3/ul (0-0.2); ABS Lymphocytes 1.3 10^3/ul (1.0-4.8); ABS Monocytes 1.2 10^3/ul (0-0.8); ABS Neutrophils 9.4 10^3/ul (1.5-7.7); Eosinophil % 0.2 %; Hematocrit 25 % (42-52); Hemoglobin 8.1 g/dL (14.0-18.0); Lymphocyte % 10.9 %; Mean Corpuscular HGB Conc 33 g/dL (31-36); Mean Corpuscular Hemoglobin 26 pg (27-31); Mean Corpuscular Volume 79 fL (80-94); Mean Platelet Volume 7.1 fL (7.4-10.4); Nucleated Red Blood Cells % 0.1; Platelet Count 213 10^3/uL (150-450); Red Blood Count 3.15 10^6 /uL (4.18-5.48); Red Cell Distribution Width 18 % (10-15); White Blood Count 11.9 10^3/uL (3.5-10.8)
[2021-11-25 05:08] LABS: INR 2.61 (0.86-1.15)
[2021-11-25 05:20] LABS: Calcium 8.6 mg/dL (8.6-10.3); Magnesium 2.2 mg/dL (1.9-2.7); Potassium 4.4 mmol/L (3.5-5.0)
[2021-11-25] MEDS: SPIRIVA Respimat (tiotropium) 2.5 mcg/inh Inhaler INH SCH (08:49)
[2021-11-25] MEDS: Mometasone/Formoter 200/5 MDI INH SCH (08:49)
[2021-11-25] MEDS: Potassium Chlor 20 meq TAB.ER PO SCH (09:38)
[2021-11-25] MEDS: Aspirin EC 81 mg TAB.EC (enteric coated) PO SCH (09:38)
[2021-11-25] MEDS: Iron Sucrose 200 MG in NS 0.9% 100 ml BAG 100 ML IVPB SCH (09:49)
[2021-11-25 11:48] VITALS: BP 130/50
== END 2021-11-25 14:23 | disposition home or self-care (01) | DRG 291 ==
LOC: ED 00:34 → EDHOLD 03:48 → SUATTDRO 03:48 → MEDTELE 13:13
PROVIDERS: ADMIT Internal Medicine; ATTEND Student in an Organized Health Care Education/Training Program

== ENCOUNTER 2021-12-29 13:24 | Inpatient (IN) ==
[2021-12-29] MEDS ORDERED: Pantoprazole 80 mg in NS BAG 80 MG/250 ML BAG IV ONE (14:52)
[2021-12-29] MEDS ORDERED: Pantoprazole VIAL 40 MG VIAL IV ONE (14:55)
[2021-12-29 15:03] LABS: Hematocrit 21 % (42-52); Hemoglobin 6.9 g/dL (14.0-18.0); Mean Corpuscular HGB Conc 33 g/dL (31-36); Mean Corpuscular Hemoglobin 27 pg (27-31); Mean Corpuscular Volume 84 fL (80-94); Red Blood Count 2.51 10^6 /uL (4.18-5.48); Red Cell Distribution Width 24 % (10-15); White Blood Count 9.3 10^3/uL (3.5-10.8)
[2021-12-29 15:15] LABS: INR 5.84 (0.86-1.15)
[2021-12-29 15:16] LABS: ALT 15 U/L (7-52); Albumin 3.6 g/dL (3.2-5.2); Albumin/Globulin Ratio 1.3 (1-3); Alkaline Phosphatase 104 U/L (35-149); Blood Urea Nitrogen 100 mg/dL (6-24); CO2 Carbon Dioxide 24 mmol/L (22-32); Calcium 9.4 mg/dL (8.6-10.3); Chloride 99 mmol/L (101-111); Globulin 2.7 g/dL (2-4); Glucose 89 mg/dL (70-100); Sodium 131 mmol/L (135-145); Total Protein 6.3 g/dL (6.4-8.9); eGFR CKD-EPI 36.4 (>60)
[2021-12-29 15:34] LABS: ABS Basophils 0.1 10^3/ul (0-0.2); ABS Eosinophils 0.3 10^3/ul (0-0.6); ABS Lymphocytes 1.9 10^3/ul (1.0-4.8); ABS Monocytes 1.4 10^3/ul (0-0.8); ABS Neutrophils 5.7 10^3/ul (1.5-7.7); Anisocytosis 3+; Eosinophil % 3.2 %; Hypochromasia 3+; Lymphocyte % 20.2 %; Mean Platelet Volume 7.9 fL (7.4-10.4); Nucleated Red Blood Cells % 0.2; Platelet Count 285 10^3/uL (150-450); Polychromasia 2+
[2021-12-29 15:41] LABS: Troponin I 0.06 ng/mL (<0.03)
[2021-12-29] MEDS ORDERED: Phytonadione SUBCUT/IM Adult 10 MG/ML AMP (IM or SQ not preferred route) IM ONE (16:01)
[2021-12-29 16:15] LABS: AST 22 U/L (13-39); Magnesium 2.6 mg/dL (1.9-2.7)
[2021-12-29 16:17] LABS: Anion Gap 8 mmol/L (2-11); Potassium 5.7 mmol/L (3.5-5.0)
[2021-12-29] MEDS ORDERED: Ondansetron 4 mg VIAL 2 MG/ML 2 ml VIAL IV PRN (16:50)
[2021-12-29] MEDS ORDERED: Phytonadione IV (Adult) 5 MG in NS 0.9% 50 ML 50 ML IV ONE ×2 (17:00→17:13)
[2021-12-29] MEDS ORDERED: Dextrose 50% Syringe 50 ml 25 GM/50 ML SYRINGE IV PUSH PRN (17:13)
[2021-12-29 17:27] LABS: Urine Appearance Clear; Urine Bilirubin Negative (Negative); Urine Blood Negative (Negative); Urine Color Yellow; Urine Glucose Negative (Negative); Urine Ketones Negative (Negative); Urine Nitrite Negative (Negative); Urine Protein Negative (Negative); Urine Specific Gravity 1.011 (1.002-1.030); Urine Urobilinogen Negative (Negative)
[2021-12-29 17:38] LABS: Hematocrit for Retic CNT 21 % (42-52); RBC Retic Count 2.51 10^6/uL (4.18-5.48)
[2021-12-29 17:42] LABS: Corrected Retic Count 2.5 % (0.5-1.5); Immature Retic Fraction 0.71
[2021-12-29 17:47] LABS: Troponin I 0.06 ng/mL (<0.03)
[2021-12-29] MEDS ORDERED: Furosemide 20 mg/2 ml IV VIAL IV ONE (19:25)
[2021-12-29] MEDS: SODIUM ZIRCONIUM CYCLOSILICATE 10 GM PACKET PO SCH ×2 (21:58→23:29)
[2021-12-29] MEDS: Mometasone/Formoter 200/5 MDI INH SCH (22:06)
[2021-12-29 23:25] LABS: Hematocrit 22 % (42-52); Hemoglobin 7.2 g/dL (14.0-18.0)
[2021-12-30] MEDS ORDERED: Pantoprazole 80 mg in NS BAG 80 MG/250 ML BAG IV SCH (02:20)
[2021-12-30] MEDS ORDERED: NS 0.9% 500 ml BAG 500 ML IV ONE (03:38)
[2021-12-30] MEDS: Pantoprazole 80 mg in NS BAG 80 MG/250 ML BAG IV SCH ×2 (04:32→17:48)
[2021-12-30 06:03] LABS: ABS Basophils 0.1 10^3/ul (0-0.2); ABS Eosinophils 0.2 10^3/ul (0-0.6); ABS Lymphocytes 1.3 10^3/ul (1.0-4.8); ABS Monocytes 1.1 10^3/ul (0-0.8); ABS Neutrophils 8.7 10^3/ul (1.5-7.7); Hematocrit 20 % (42-52); Hemoglobin 6.4 g/dL (14.0-18.0); Lymphocyte % 11.5 %; Mean Corpuscular HGB Conc 32 g/dL (31-36); Mean Corpuscular Hemoglobin 27 pg (27-31); Mean Corpuscular Volume 85 fL (80-94); Mean Platelet Volume 7.5 fL (7.4-10.4); Nucleated Red Blood Cells % 0.1; Platelet Count 225 10^3/uL (150-450); Red Blood Count 2.35 10^6 /uL (4.18-5.48); Red Cell Distribution Width 23 % (10-15); White Blood Count 11.5 10^3/uL (3.5-10.8)
[2021-12-30 06:09] LABS: INR 2.78 (0.86-1.15)
[2021-12-30 06:10] LABS: Calcium 8.7 mg/dL (8.6-10.3); Magnesium 2.6 mg/dL (1.9-2.7); eGFR CKD-EPI 36.7 (>60)
[2021-12-30 06:17] LABS: Potassium 5.1 mmol/L (3.5-5.0)
[2021-12-30] MEDS: Mometasone/Formoter 200/5 MDI INH SCH ×2 (07:42→20:46)
[2021-12-30 09:27] LABS: Ferritin 95.7 ng/mL (24-336)
[2021-12-30] MEDS ORDERED: Phytonadione IV (Adult) 5 MG in NS 0.9% 50 ML 50 ML IV ONE (10:30)
[2021-12-30] MEDS ORDERED: Furosemide 20 mg/2 ml IV VIAL IV SLOW PU ONE (16:19)
[2021-12-30 16:20] LABS: Hematocrit 24 % (42-52); Hemoglobin 7.7 g/dL (14.0-18.0)
[2021-12-31 04:38] LABS: ABS Basophils 0.1 10^3/ul (0-0.2); ABS Eosinophils 0.3 10^3/ul (0-0.6); ABS Lymphocytes 1.1 10^3/ul (1.0-4.8); ABS Monocytes 1.1 10^3/ul (0-0.8); ABS Neutrophils 4.3 10^3/ul (1.5-7.7); Eosinophil % 4.5 %; Hematocrit 24 % (42-52); Hemoglobin 7.8 g/dL (14.0-18.0); Lymphocyte % 15.9 %; Mean Corpuscular HGB Conc 33 g/dL (31-36); Mean Corpuscular Hemoglobin 28 pg (27-31); Mean Corpuscular Volume 85 fL (80-94); Mean Platelet Volume 7.1 fL (7.4-10.4); Nucleated Red Blood Cells % 0.1; Platelet Count 227 10^3/uL (150-450); Red Blood Count 2.79 10^6 /uL (4.18-5.48); Red Cell Distribution Width 22 % (10-15); White Blood Count 6.8 10^3/uL (3.5-10.8)
[2021-12-31 04:59] LABS: Calcium 8.7 mg/dL (8.6-10.3); Magnesium 2.4 mg/dL (1.9-2.7); Potassium 4.1 mmol/L (3.5-5.0); eGFR CKD-EPI 44.3 (>60)
[2021-12-31] MEDS: Pantoprazole 80 mg in NS BAG 80 MG/250 ML BAG IV SCH ×2 (05:08→17:59)
[2021-12-31] MEDS: Mometasone/Formoter 200/5 MDI INH SCH ×3 (08:02→19:47)
[2021-12-31] MEDS: Iron Sucrose 200 MG in NS 0.9% 100 ml BAG 100 ML IVPB SCH (13:29)
[2022-01-01 05:00] LABS: ABS Basophils 0.1 10^3/ul (0-0.2); ABS Eosinophils 0.2 10^3/ul (0-0.6); ABS Lymphocytes 1.2 10^3/ul (1.0-4.8); ABS Monocytes 1.2 10^3/ul (0-0.8); ABS Neutrophils 5.9 10^3/ul (1.5-7.7); Eosinophil % 2.4 %; Hematocrit 24 % (42-52); Hemoglobin 7.8 g/dL (14.0-18.0); Lymphocyte % 13.6 %; Mean Corpuscular HGB Conc 32 g/dL (31-36); Mean Corpuscular Hemoglobin 28 pg (27-31); Mean Corpuscular Volume 86 fL (80-94); Nucleated Red Blood Cells % 0.1; Platelet Count 224 10^3/uL (150-450); Red Cell Distribution Width 22 % (10-15); White Blood Count 8.6 10^3/uL (3.5-10.8)
[2022-01-01 05:08] LABS: INR 1.52 (0.86-1.15)
[2022-01-01 05:19] LABS: Calcium 8.6 mg/dL (8.6-10.3); Magnesium 2.3 mg/dL (1.9-2.7); eGFR CKD-EPI 54.5 (>60)
[2022-01-01] MEDS: Pantoprazole 80 mg in NS BAG 80 MG/250 ML BAG IV SCH ×2 (05:41→17:45)
[2022-01-01] MEDS: Mometasone/Formoter 200/5 MDI INH SCH ×2 (08:06→19:24)
[2022-01-01] MEDS: Aspirin EC 81 mg TAB.EC (enteric coated) PO SCH (09:02)
[2022-01-01] MEDS: Iron Sucrose 200 MG in NS 0.9% 100 ml BAG 100 ML IVPB SCH (09:03)
[2022-01-01] MEDS ORDERED: Furosemide 20 mg/2 ml IV VIAL IV SLOW PU ONE (10:57)
[2022-01-02 05:53] LABS: ABS Basophils 0.1 10^3/ul (0-0.2); ABS Eosinophils 0.3 10^3/ul (0-0.6); ABS Lymphocytes 1.2 10^3/ul (1.0-4.8); ABS Neutrophils 5.4 10^3/ul (1.5-7.7); Eosinophil % 3.7 %; Hematocrit 24 % (42-52); Lymphocyte % 15.3 %; Mean Corpuscular HGB Conc 33 g/dL (31-36); Mean Corpuscular Hemoglobin 29 pg (27-31); Mean Corpuscular Volume 86 fL (80-94); Mean Platelet Volume 7.4 fL (7.4-10.4); Nucleated Red Blood Cells % 0.2; Platelet Count 221 10^3/uL (150-450); Red Blood Count 2.78 10^6 /uL (4.18-5.48); Red Cell Distribution Width 22 % (10-15)
[2022-01-02 05:58] LABS: INR 1.61 (0.86-1.15)
[2022-01-02] MEDS: Pantoprazole 80 mg in NS BAG 80 MG/250 ML BAG IV SCH (06:25)
[2022-01-02 07:28] LABS: Calcium 8.5 mg/dL (8.6-10.3); Magnesium 2.1 mg/dL (1.9-2.7)
[2022-01-02 07:33] LABS: eGFR CKD-EPI 58.9 (>60)
[2022-01-02] MEDS: Mometasone/Formoter 200/5 MDI INH SCH ×2 (08:27→20:10)
[2022-01-02] MEDS: Albuterol HFA INHALER 8 gm MDI INH PRN (09:05)
[2022-01-02] MEDS: Iron Sucrose 200 MG in NS 0.9% 100 ml BAG 100 ML IVPB SCH (09:08)
[2022-01-02] MEDS: Aspirin EC 81 mg TAB.EC (enteric coated) PO SCH (09:08)
[2022-01-02] MEDS ORDERED: Dextran 70/Hypromellose Tears Eye Drops 15 ml BTL (for Artificials Tears) BOTH EYES PRN (09:56)
[2022-01-02] MEDS ORDERED: Furosemide 20 mg/2 ml IV VIAL IV SLOW PU ONE (11:44)
[2022-01-03] MEDS: Albuterol HFA INHALER 8 gm MDI INH PRN (07:21)
[2022-01-03] MEDS: Mometasone/Formoter 200/5 MDI INH SCH (07:22)
[2022-01-03 09:12] LABS: ABS Basophils 0.1 10^3/ul (0-0.2); ABS Eosinophils 0.3 10^3/ul (0-0.6); ABS Lymphocytes 1.2 10^3/ul (1.0-4.8); ABS Monocytes 1.1 10^3/ul (0-0.8); ABS Neutrophils 5.4 10^3/ul (1.5-7.7); Eosinophil % 3.6 %; Hematocrit 25 % (42-52); Lymphocyte % 14.5 %; Mean Corpuscular HGB Conc 33 g/dL (31-36); Mean Corpuscular Hemoglobin 28 pg (27-31); Mean Corpuscular Volume 87 fL (80-94); Mean Platelet Volume 7.1 fL (7.4-10.4); Platelet Count 225 10^3/uL (150-450); Red Blood Count 2.82 10^6 /uL (4.18-5.48); Red Cell Distribution Width 22 % (10-15)
[2022-01-03 09:30] LABS: Calcium 8.7 mg/dL (8.6-10.3); Potassium 4.1 mmol/L (3.5-5.0)
[2022-01-03] MEDS: Aspirin EC 81 mg TAB.EC (enteric coated) PO SCH (09:34)
[2022-01-03] MEDS: Iron Sucrose 200 MG in NS 0.9% 100 ml BAG 100 ML IVPB SCH (09:34)
[2022-01-03 12:46] VITALS: BP 119/56
== END 2022-01-03 12:55 | disposition home health service (06) | DRG 377 ==
LOC: ED 13:24 → MEDTELE 13:24
PROVIDERS: ADMIT Hospitalist; ATTEND Internal Medicine

== ENCOUNTER 2022-02-17 13:58 | Inpatient (IN) ==
[2022-02-17] MEDS ORDERED: Furosemide 40 mg/4 ml IV VIAL IV SLOW PU ONE (15:03)
[2022-02-17 15:12] LABS: ABS Basophils 0.1 10^3/ul (0-0.2); ABS Eosinophils 0.1 10^3/ul (0-0.6); ABS Lymphocytes 0.9 10^3/ul (1.0-4.8); ABS Monocytes 0.9 10^3/ul (0-0.8); ABS Neutrophils 3.4 10^3/ul (1.5-7.7); Eosinophil % 2.7 %; Hematocrit 29 % (42-52); Hemoglobin 9.6 g/dL (14.0-18.0); Lymphocyte % 15.8 %; Mean Corpuscular HGB Conc 33 g/dL (31-36); Mean Corpuscular Hemoglobin 27 pg (27-31); Mean Corpuscular Volume 82 fL (80-94); Mean Platelet Volume 7.7 fL (7.4-10.4); Platelet Count 160 10^3/uL (150-450); Red Blood Count 3.56 10^6 /uL (4.18-5.48); Red Cell Distribution Width 19 % (10-15); White Blood Count 5.4 10^3/uL (3.5-10.8)
[2022-02-17 16:03] LABS: Albumin 3.9 g/dL (3.2-5.2); Albumin/Globulin Ratio 2.2 (1-3); Calcium 8.6 mg/dL (8.6-10.3); Globulin 1.8 g/dL (2-4); Magnesium 1.8 mg/dL (1.9-2.7); Potassium 4.4 mmol/L (3.5-5.0); Total Bilirubin 1.3 mg/dL (0.2-1.0); Total Protein 5.7 g/dL (6.4-8.9); eGFR CKD-EPI 47.7 (>60)
[2022-02-17 16:18] LABS: Urine Appearance Clear; Urine Bilirubin Negative (Negative); Urine Blood Negative (Negative); Urine Color Yellow; Urine Glucose Negative (Negative); Urine Ketones Negative (Negative); Urine Nitrite Negative (Negative); Urine Protein Negative (Negative); Urine Specific Gravity 1.006 (1.002-1.030); Urine Urobilinogen Negative (Negative)
[2022-02-17 16:38] LABS: High Sensitivity Troponin 1 Hr 53 pg/mL (<20)
[2022-02-17] MEDS ORDERED: Magnesium Sulfate 2 gm BAG 2 GM/50 ML BAG IVPB ONE (16:46)
[2022-02-17] MEDS ORDERED: guaiFENesin 100 mg/5 ml LIQ unit dose cup PO PRN (17:45)
[2022-02-17] MEDS ORDERED: Al Hydrox/Mg Hydrox/Simet LIQ 30 ML UDC PO PRN (17:45)
[2022-02-17] MEDS: Enoxaparin 40 MG/0.4 ML SYR SUBCUT SCH (18:24)
[2022-02-17] MEDS ORDERED: Furosemide 40 mg/4 ml IV VIAL IV ONE (20:00)
[2022-02-17] MEDS ORDERED: Triamcinolone 0.5% OINT 1 TUBE TOPICAL PRN (20:27)
[2022-02-17] MEDS ORDERED: Bumetanide IV 0.25 MG/ML 4 ml VIAL (1 mg) SLOW PUSH SCH (21:00)
[2022-02-18 05:53] LABS: ABS Eosinophils 0.2 10^3/ul (0-0.6); ABS Lymphocytes 0.7 10^3/ul (1.0-4.8); ABS Monocytes 0.8 10^3/ul (0-0.8); Eosinophil % 3.6 %; Hematocrit 29 % (42-52); Hemoglobin 9.4 g/dL (14.0-18.0); Mean Corpuscular HGB Conc 32 g/dL (31-36); Mean Corpuscular Hemoglobin 27 pg (27-31); Mean Corpuscular Volume 83 fL (80-94); Mean Platelet Volume 7.7 fL (7.4-10.4); Platelet Count 150 10^3/uL (150-450); Red Blood Count 3.52 10^6 /uL (4.18-5.48); Red Cell Distribution Width 19 % (10-15); White Blood Count 4.8 10^3/uL (3.5-10.8)
[2022-02-18 06:02] LABS: INR 1.58 (0.86-1.15)
[2022-02-18 06:31] LABS: Calcium 8.8 mg/dL (8.6-10.3); Potassium 4.1 mmol/L (3.5-5.0); eGFR CKD-EPI 46.9 (>60)
[2022-02-18] MEDS: Mometasone/Formoter 200/5 MDI INH SCH ×2 (07:49→19:15)
[2022-02-18] MEDS: Aspirin EC 81 mg TAB.EC (enteric coated) PO SCH (08:26)
[2022-02-18] MEDS ORDERED: Bumetanide IV 0.25 MG/ML 4 ml VIAL (1 mg) SLOW PUSH SCH ×2 (09:00→14:00)
[2022-02-18 11:45] LABS: Magnesium 2.1 mg/dL (1.9-2.7)
[2022-02-18] MEDS ORDERED: ceFAZolin 1 GM ADVAN 1 GM in NS 0.9% 50 ML 50 ML IVPB SCH (12:00)
[2022-02-18] MEDS: ceFAZolin VIAL 1 GM in NS 0.9% 50 ML 50 ML IVPB SCH ×2 (12:07→20:47)
[2022-02-18 14:40] LABS: PCO2 Arterial 43 mmHg (35-45); PO2 Arterial 81 mmHg (80-100)
[2022-02-18] MEDS ORDERED: Furosemide 40 mg/4 ml IV VIAL IV ONE (15:41)
[2022-02-18] MEDS: Enoxaparin 40 MG/0.4 ML SYR SUBCUT SCH (17:09)
[2022-02-18] MEDS: Albuterol/Ipratropium NEB.SOL (2.5/0.5 MG) 3 ML NEB.SOLN INH SCH (19:15)
[2022-02-18] MEDS: methylPREDNISolone SOD 40 mg/ml 1 ml VIAL IV SCH (20:43)
[2022-02-19] MEDS: ceFAZolin VIAL 1 GM in NS 0.9% 50 ML 50 ML IVPB SCH ×3 (04:00→21:40)
[2022-02-19 06:09] LABS: ABS Lymphocytes 0.3 10^3/ul (1.0-4.8); ABS Neutrophils 3.5 10^3/ul (1.5-7.7); Eosinophil % 0.1 %; Hematocrit 29 % (42-52); Hemoglobin 9.3 g/dL (14.0-18.0); Lymphocyte % 6.9 %; Mean Corpuscular HGB Conc 32 g/dL (31-36); Mean Corpuscular Hemoglobin 27 pg (27-31); Mean Corpuscular Volume 82 fL (80-94); Mean Platelet Volume 7.6 fL (7.4-10.4); Platelet Count 141 10^3/uL (150-450); Red Blood Count 3.51 10^6 /uL (4.18-5.48); Red Cell Distribution Width 19 % (10-15); White Blood Count 3.8 10^3/uL (3.5-10.8)
[2022-02-19 06:36] LABS: Calcium 8.7 mg/dL (8.6-10.3); Magnesium 1.9 mg/dL (1.9-2.7); Potassium 3.8 mmol/L (3.5-5.0); eGFR CKD-EPI 56.6 (>60)
[2022-02-19] MEDS: methylPREDNISolone SOD 40 mg/ml 1 ml VIAL IV SCH ×2 (08:38→21:40)
[2022-02-19] MEDS: Aspirin EC 81 mg TAB.EC (enteric coated) PO SCH (08:39)
[2022-02-19] MEDS: Mometasone/Formoter 200/5 MDI INH SCH ×2 (08:39→20:05)
[2022-02-19] MEDS: Albuterol/Ipratropium NEB.SOL (2.5/0.5 MG) 3 ML NEB.SOLN INH SCH ×2 (09:00→20:05)
[2022-02-19] MEDS ORDERED: Bumetanide IV 0.25 MG/ML 4 ml VIAL (1 mg) SLOW PUSH SCH ×2 (10:30→11:00)
[2022-02-19] MEDS ORDERED: Potassium Chlor 20 meq TAB.ER PO ONE (17:28)
[2022-02-19] MEDS ORDERED: Magnesium Sulfate IV 1GM/100ML 1 GM/100 ML BAG IV ONE (17:28)
[2022-02-19] MEDS: Enoxaparin 40 MG/0.4 ML SYR SUBCUT SCH (18:20)
[2022-02-20] MEDS: ceFAZolin 1 GM in Dextrose 1 GM/50 ML BAG IVPB SCH ×3 (04:28→20:01)
[2022-02-20 06:22] LABS: ABS Lymphocytes 0.4 10^3/ul (1.0-4.8); ABS Monocytes 0.2 10^3/ul (0-0.8); ABS Neutrophils 4.7 10^3/ul (1.5-7.7); Hematocrit 29 % (42-52); Hemoglobin 9.5 g/dL (14.0-18.0); Mean Corpuscular HGB Conc 33 g/dL (31-36); Mean Corpuscular Hemoglobin 27 pg (27-31); Mean Corpuscular Volume 82 fL (80-94); Mean Platelet Volume 7.8 fL (7.4-10.4); Platelet Count 167 10^3/uL (150-450); Red Blood Count 3.49 10^6 /uL (4.18-5.48); Red Cell Distribution Width 19 % (10-15); White Blood Count 5.3 10^3/uL (3.5-10.8)
[2022-02-20 06:39] LABS: Calcium 8.9 mg/dL (8.6-10.3); Magnesium 2.2 mg/dL (1.9-2.7); Potassium 3.6 mmol/L (3.5-5.0); eGFR CKD-EPI 54.5 (>60)
[2022-02-20] MEDS: Albuterol/Ipratropium NEB.SOL (2.5/0.5 MG) 3 ML NEB.SOLN INH SCH ×3 (07:07→21:17)
[2022-02-20] MEDS: Mometasone/Formoter 200/5 MDI INH SCH ×2 (07:09→21:04)
[2022-02-20] MEDS: Aspirin EC 81 mg TAB.EC (enteric coated) PO SCH (09:18)
[2022-02-20] MEDS: methylPREDNISolone SOD 40 mg/ml 1 ml VIAL IV SCH (09:18)
[2022-02-20] MEDS ORDERED: Potassium Chlor 20 meq TAB.ER PO SCH (13:00)
[2022-02-20] MEDS: Enoxaparin 40 MG/0.4 ML SYR SUBCUT SCH (17:45)
[2022-02-21] MEDS: ceFAZolin 1 GM in Dextrose 1 GM/50 ML BAG IVPB SCH ×3 (03:36→21:20)
[2022-02-21 06:22] LABS: ABS Lymphocytes 0.5 10^3/ul (1.0-4.8); ABS Monocytes 0.4 10^3/ul (0-0.8); ABS Neutrophils 6.1 10^3/ul (1.5-7.7); Hematocrit 29 % (42-52); Hemoglobin 9.4 g/dL (14.0-18.0); Lymphocyte % 6.6 %; Mean Corpuscular HGB Conc 33 g/dL (31-36); Mean Corpuscular Hemoglobin 27 pg (27-31); Mean Corpuscular Volume 82 fL (80-94); Mean Platelet Volume 7.6 fL (7.4-10.4); Platelet Count 192 10^3/uL (150-450); Red Blood Count 3.56 10^6 /uL (4.18-5.48); Red Cell Distribution Width 19 % (10-15); White Blood Count 6.9 10^3/uL (3.5-10.8)
[2022-02-21 06:39] LABS: Calcium 8.9 mg/dL (8.6-10.3); Magnesium 2.2 mg/dL (1.9-2.7); Phosphorus 4.6 mg/dL (2.5-5.0); Potassium 3.8 mmol/L (3.5-5.0); eGFR CKD-EPI 46.9 (>60)
[2022-02-21] MEDS: Mometasone/Formoter 200/5 MDI INH SCH ×2 (07:17→19:09)
[2022-02-21] MEDS: Albuterol/Ipratropium NEB.SOL (2.5/0.5 MG) 3 ML NEB.SOLN INH SCH (07:20)
[2022-02-21] MEDS ORDERED: Potassium Chlor 20 meq TAB.ER PO ONE ×2 (07:32→13:00)
[2022-02-21] MEDS: Aspirin EC 81 mg TAB.EC (enteric coated) PO SCH (09:33)
[2022-02-21] MEDS ORDERED: Bumetanide IV 0.25 MG/ML 4 ml VIAL (1 mg) SLOW PUSH ONE (13:16)
[2022-02-21] MEDS: Albuterol HFA INHALER 8 gm MDI INH PRN ×2 (16:54→19:13)
[2022-02-21 17:49] LABS: Calcium 8.9 mg/dL (8.6-10.3); Potassium 3.9 mmol/L (3.5-5.0); eGFR CKD-EPI 45.1 (>60)
[2022-02-21] MEDS ORDERED: Albuterol/Ipratropium RESP(NF) MDI (Combivent Respimat) INH SCH (19:00)
[2022-02-21] MEDS ORDERED: Mometasone/Formoter 100/5 MDI INH SCH (19:00)
[2022-02-21] MEDS: methylPREDNISolone SOD 40 mg/ml 1 ml VIAL IV SCH (21:19)
[2022-02-21] MEDS: Enoxaparin 40 MG/0.4 ML SYR SUBCUT SCH (21:19)
[2022-02-22] MEDS: ceFAZolin 1 GM in Dextrose 1 GM/50 ML BAG IVPB SCH (05:48)
[2022-02-22 06:31] LABS: ABS Lymphocytes 0.5 10^3/ul (1.0-4.8); ABS Monocytes 0.3 10^3/ul (0-0.8); ABS Neutrophils 6.2 10^3/ul (1.5-7.7); Hematocrit 29 % (42-52); Hemoglobin 9.6 g/dL (14.0-18.0); Lymphocyte % 6.8 %; Mean Corpuscular HGB Conc 33 g/dL (31-36); Mean Corpuscular Hemoglobin 27 pg (27-31); Mean Corpuscular Volume 81 fL (80-94); Mean Platelet Volume 7.5 fL (7.4-10.4); Nucleated Red Blood Cells % 0.1; Platelet Count 196 10^3/uL (150-450); Red Blood Count 3.62 10^6 /uL (4.18-5.48); Red Cell Distribution Width 19 % (10-15)
[2022-02-22 07:12] LABS: Calcium 8.9 mg/dL (8.6-10.3); Magnesium 2.2 mg/dL (1.9-2.7); Potassium 3.9 mmol/L (3.5-5.0); eGFR CKD-EPI 43.3 (>60)
[2022-02-22] MEDS: Mometasone/Formoter 200/5 MDI INH SCH ×2 (07:50→20:41)
[2022-02-22] MEDS: SPIRIVA Respimat (tiotropium) 2.5 mcg/inh Inhaler INH SCH (07:50)
[2022-02-22] MEDS: Aspirin EC 81 mg TAB.EC (enteric coated) PO SCH (08:34)
[2022-02-22] MEDS: methylPREDNISolone SOD 40 mg/ml 1 ml VIAL IV SCH ×2 (08:35→22:07)
[2022-02-22] MEDS: Enoxaparin 40 MG/0.4 ML SYR SUBCUT SCH (17:36)
[2022-02-22 21:36] LABS: Body Fluid WBC 204 /mcL
[2022-02-22 22:14] LABS: Body Fluid Appearance Cloudy; Body Fluid Color Yellow; Body Fluid Source Peritonial Fluid
[2022-02-23 00:12] LABS: Body Fluid Mono 8 %; Body Fluid Other Cells 198; Body Fluid Total Cells Counted 200
[2022-02-23 07:01] LABS: ABS Lymphocytes 0.5 10^3/ul (1.0-4.8); ABS Monocytes 0.3 10^3/ul (0-0.8); ABS Neutrophils 6.4 10^3/ul (1.5-7.7); Eosinophil % 0.1 %; Hematocrit 31 % (42-52); Hemoglobin 10.2 g/dL (14.0-18.0); Lymphocyte % 6.6 %; Mean Corpuscular HGB Conc 33 g/dL (31-36); Mean Corpuscular Hemoglobin 27 pg (27-31); Mean Corpuscular Volume 81 fL (80-94); Mean Platelet Volume 7.7 fL (7.4-10.4); Platelet Count 200 10^3/uL (150-450); Red Blood Count 3.79 10^6 /uL (4.18-5.48); Red Cell Distribution Width 19 % (10-15); White Blood Count 7.1 10^3/uL (3.5-10.8)
[2022-02-23 07:15] LABS: Calcium 9.1 mg/dL (8.6-10.3); Magnesium 2.2 mg/dL (1.9-2.7); Potassium 3.9 mmol/L (3.5-5.0)
[2022-02-23] MEDS: Mometasone/Formoter 200/5 MDI INH SCH ×2 (07:44→21:14)
[2022-02-23] MEDS: SPIRIVA Respimat (tiotropium) 2.5 mcg/inh Inhaler INH SCH (07:44)
[2022-02-23] MEDS: Albuterol HFA INHALER 8 gm MDI INH PRN ×2 (07:44→13:24)
[2022-02-23] MEDS: methylPREDNISolone SOD 40 mg/ml 1 ml VIAL IV SCH ×2 (08:00→21:13)
[2022-02-23] MEDS: Aspirin EC 81 mg TAB.EC (enteric coated) PO SCH (08:01)
[2022-02-23 10:50] LABS: INR 1.49 (0.86-1.15)
[2022-02-23] MEDS: Enoxaparin 40 MG/0.4 ML SYR SUBCUT SCH (17:06)
[2022-02-23 17:40] LABS: Body Fluid Appearance Cloudy; Body Fluid Color Yellow; Body Fluid Source Pleural Fluid
[2022-02-23 19:47] LABS: Body Fluid Mono 3 %; Body Fluid Total Cells Counted 200
[2022-02-23 19:48] LABS: Body Fluid WBC 418 /mcL
[2022-02-24 06:05] LABS: ABS Lymphocytes 0.6 10^3/ul (1.0-4.8); ABS Monocytes 0.3 10^3/ul (0-0.8); Hematocrit 29 % (42-52); Hemoglobin 9.7 g/dL (14.0-18.0); Lymphocyte % 7.1 %; Mean Corpuscular HGB Conc 33 g/dL (31-36); Mean Corpuscular Hemoglobin 27 pg (27-31); Mean Corpuscular Volume 81 fL (80-94); Mean Platelet Volume 7.3 fL (7.4-10.4); Platelet Count 211 10^3/uL (150-450); Red Blood Count 3.63 10^6 /uL (4.18-5.48); Red Cell Distribution Width 19 % (10-15); White Blood Count 7.9 10^3/uL (3.5-10.8)
[2022-02-24 06:22] LABS: Calcium 9.1 mg/dL (8.6-10.3); Magnesium 2.1 mg/dL (1.9-2.7)
[2022-02-24] MEDS: Aspirin EC 81 mg TAB.EC (enteric coated) PO SCH (08:02)
[2022-02-24] MEDS: methylPREDNISolone SOD 40 mg/ml 1 ml VIAL IV SCH (08:04)
[2022-02-24] MEDS: Mometasone/Formoter 200/5 MDI INH SCH (08:42)
[2022-02-24] MEDS: SPIRIVA Respimat (tiotropium) 2.5 mcg/inh Inhaler INH SCH (08:43)
[2022-02-24 10:41] VITALS: BP 140/71
[2022-02-24 15:03] LABS: Lactate Dehydrogenase, BF 134 U/L
[2022-02-24 16:33] LABS: Glucose, BF 175 mg/dL
[2022-02-24 16:34] LABS: Albumin, BF 2.1 g/dL; Fluid Type, Albumin PERITONEAL
[2022-02-24 16:35] LABS: Fluid Type, Protein, Total PERITONEAL
[2022-02-25 15:46] LABS: Lactate Dehydrogenase, BF 85 U/L
[2022-02-26 09:14] LABS: Glucose, BF 202 mg/dL
[2022-02-26 10:07] LABS: Albumin, BF 1.8 g/dL; Fluid Type, Albumin PLEURAL
[2022-02-26 10:24] LABS: Fluid Type, Protein, Total PLEURAL; Total Protein, BF 2.3 g/dL
== END 2022-02-24 14:56 | DRG 291 ==
LOC: ED 13:58 → SUATTDRO 17:35 → MEDTELE 17:35
PROVIDERS: ADMIT Internal Medicine; ATTEND Internal Medicine